=== PATIENT | female | born 1940 | race Caucasian/White ===

== ENCOUNTER 2017-11-26 14:58 | Emergency (ER) | payer MEDICARE ==
[~2017-11-26] VITALS: Ht 160 cm; Wt 68.0 kg
[~2017-11-26 14:58] MED LIST: AMLODIPINE BESYL5 MG PO; ASPIRIN81 MG PO; ATENOLOL100 MG PO; BENAZEPRIL HCL40 MG PO; CO Q-1010 MG; COLACE100 MG PO; COQ-1030 MG PO; EDARBI40 MG; KEFLEX250 MG PO; LEVOTHYROXINE75 MCG PO; LIOTHYRONINE SO5 MCG PO; LOVASTATIN40 MG PO; OMEGA 3 FISH O1 EACH; OMEPRAZOLE40 MG PO; OS-CAL 500+D T1 EACH PO; ROBAXIN-750750 MG PO; ULTRAM 50MG50 MG PO; ULTRAM50 MG PO; Z.0.ASPIRIN CHEW81 M PO; Z.0.ATENOLOL100 MG PO; Z.0.BENAZEPRIL HCL40 PO; Z.0.LEVOTHYROXINE75 PO; Z.0.LOVASTATIN40 MG PO; Z.0.OMEPRAZOLE40 MG PO; Z.0.OSCAL D500 MG PO; [UNRECOGNIZED DRUG - OTHER] PO
--- OUTSIDE RECORDS SUMMARY | 2017-11-26 15:01 | XMS REPORT ---
[facility] Address Unknown Phone Unavailable Care Team Providers Care Loans Officer Name Role Phone ERICA GARCIAS Unavailable Unavailable Problems This patient has no known problems. Allergies, Adverse Reactions, Alerts This patient has no known allergies or adverse reactions. Medications This patient has no known medications. Results Test Description Test Time Test Comments Text Results Atomic Results Result Comments KNEE THREE VIEWS BILATERAL [place] [address] Patient Name: VICKI ESPARZA MR #: [id number] : 1940 Age/Sex: 76/F Req #: [id number] Adm Physician: Ordered by: ERICA GARCIAS MD Report #: [id number] Location: ER Room/Bed: ___ Procedure: [id number] DX/KNEE THREE VIEWS BILATERAL Exam Date: 06/17/17 Exam Time: 1929 REPORT STATUS: Signed EXAM: KNEE THREE VIEWS BILATERAL DATE: 06/17/2017 7:11 PM Time stamp on exam: 1919 hours INDICATION: Fell in bedroom, tripped over cord COMPARISON: Right knee x-ray April 12, 2017 FINDINGS: RIGHT KNEE: Marked regional vascular calcifications. No fractures, lytic or blastic lesions. No excessive joint fluid. LEFT KNEE: Marked vascular calcifications. No fractures, lytic or blastic lesions. No excessive joint fluid. IMPRESSION: No evidence of a right or left knee fracture. Signed by: Dr. Shawna Johnson M.D. on 06/17/2017 8:03 PM Dictated By: SHAWNA JOHNSON MD 02 Transcribed By : TROY on 06/17/172002 COPY TO: ERICA GARCIAS MD
== END 2017-11-26 16:48 | disposition home or self-care (01) ==
LOC: ER 14:58
DX: S81.811A Laceration without foreign body, right lower leg, initial encounter (principal); W45.8XXA Other foreign body or object entering through skin, initial encounter; Y92.89 Other specified places as the place of occurrence of the external cause
CPT/HCPCS: 99283

== ENCOUNTER 2018-01-14 13:17 | Emergency (ER) | payer MEDICARE ==
[~2018-01-14] VITALS: Ht 160 cm; Wt 68.0 kg
--- OUTSIDE RECORDS SUMMARY | 2018-01-14 13:21 | XMS REPORT | Continuity of Care Document ---
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 No 05/07/17 5:15pm If yes, is advance directive on file with [facility]? No 01/13/17 4:02pm If not on file with [facility] will patient provide a copy? No 05/07/17 5:15pm Problems Medical Problem Onset Date Status Chest pain Unknown Diarrhea 08/20/2015 Acute Dizziness Unknown Acute HTN (hypertension) Unknown Nausea Unknown Acute Medications Current Home Medications Medication Dose Units Route Directions Days Qty Instructions Start Date Amlodipine Besylate 5 Mg Tablet 5 Mg Oral Daily 30 Tab Atenolol 100 Mg Tablet 100 Mg Oral Bedtime Benazepril Hcl 40 Mg Tablet 40 Mg Oral Bedtime Calcium Carbonate/Vitamin D3 (Os-Garcia 500+D Tablet) 1 Each Tablet 500 Mg Oral Three Times A Day 30 Tab Levothyroxine Sodium 75 Mcg Tablet 75 Mcg Oral Daily 30 Tab Liothyronine Sodium 5 Mcg Tablet 5 Mcg Oral Daily Lovastatin 40 Mg Tablet 40 Mg Oral Bedtime Omeprazole 40 Mg Capsule.dr 40 Mg Oral Daily Past Home Medications Medication Directions Ordered Status Aspirin 81 Mg Tab.chew, 81 Mg Oral Bedtime Discontinued Aspirin (Aspirin Chew) 81 Mg Chew, 81 Mg Oral Bedtime Discontinued Atenolol 100 Mg Tablet, 100 Mg Oral Bedtime Discontinued Azilsartan Medoxomil (Edarbi) 40 Mg Tablet, Daily Discontinued Benazepril Hcl 40 Mg Tablet, 40 Mg Oral Bedtime Discontinued Calcium Carbonate (Oscal D) 500 Mg Tab, 500 Mg Oral Three Times A Day Discontinued Cephalexin (Keflex) 250 Mg Capsule, 250 Mg Oral Twice A Day Discontinued Docusate Sodium (Colace) 100 Mg Cap, 100 Mg Oral Twice A Day Discontinued Levothyroxine Sodium 75 Mcg Tablet, 75 Mcg Oral Daily Discontinued Liothyronine Sodium 5 Mcg Tablet, 5 Mcg Oral Daily Discontinued Lovastatin 40 Mg Tablet, 40 Mg Oral Bedtime Discontinued Methocarbamol (Robaxin-750) 750 Mg Tablet, 750 Mg Oral Three Times A Day Discontinued Nisoldipine 17 Mg Tab.sr.24h, 8.5 Mg Oral Twice A Day Discontinued [place]-3 Fatty Acids/Fish Oil ([place] 3 Fish Oil Softgel) 1 Each Capsule.dr, Discontinued Omeprazole 40 Mg Capsule.dr, 40 Mg Oral Daily Discontinued Tramadol Hcl (Ultram) 50 Mg Tablet, 50 Mg Oral Every 4 Hours as needed for Pain Discontinued Tramadol Hcl (Ultram 50MG*) 50 Mg Tab, 50 Mg Oral Every 6 Hours for Pain Discontinued Ubidecarenone (Co Q-10) 10 Mg Capsule, Discontinued Ubidecarenone (Coq-10) 30 Mg Capsule, 30 Mg Oral Daily Discontinued Family History Relationship Condition Age at Onset Recorded Date/Time 33 Father FH: prostate cancer 60 years & older 10/13/2015 12:46pm 32 Mother Family history of acute myocardial infarction 50's - 60 2014 7:31pm 09 Sister Family history of hypertension 40's - 50 10/13/2015 12:46pm Social History Social History Problem Response Recorded Date/Time Onset Date Status Hx Psychiatric Problems No 01/13/2017 4:02pm Not Applicable Not Applicable Hx Eating Disorder No 01/13/2017 4:02pm Not Applicable Not Applicable Hx Substance Use Disorder No 01/13/2017 4:02pm Not Applicable Not Applicable Hx Depression No 01/13/2017 4:02pm Not Applicable Not Applicable Hx Alcohol Use No 01/13/2017 4:02pm Not Applicable Not Applicable Hx Substance Use Treatment No 01/13/2017 4:02pm Not Applicable Not Applicable Hx Physical Abuse No 01/13/2017 4:02pm Not Applicable Not Applicable Smoking Status Start Date Stop Date Never Smoker Hospital Discharge Instructions No hospital discharge instruction information available. Plan of Care Discharge Date 11/26/17 4:48pm Disposition HOME, SELF-CARE Condition at Discharge Stable Instructions/Education Provided Laceration Forms Provided Work/School Excuse Prescriptions See Medication Section Referrals ROB VEGA MD Order Date: Call for an appointment Address: [address] [place] [id number] Note: Follow up in one week for re-evaluation of wound healing. Additional Instructions/Education DC Instructions: Call for follow up appointment to see your medical provider to evaluate healing progress of wound. Take the medication as prescribed. As discussed at the bedside, drink fluids, rest and return to the ER for any fever, shortness of breath, chest pain, trouble handling your oral secreations or any new concerns. Keep the steri stips to lower leg dry. Do not soak them, they will fall off on their own. You may remove the sera wrap in the next 24-48 hours. When at home, keep lower extremity elevated for the next couple of days. Functional Status No functional status information available. Allergies, Adverse Reactions, Alerts Allergen Type Severity Reaction Status Last Updated Codeine Allergy Mild Active 04/12/17 Sulfamethoxazole Adverse Reaction Severe NONAROUSABLE Active 04/12/17 Trimethoprim Adverse Reaction Severe NONAROUSABLE Active 04/12/17 Promethazine Allergy Unknown Active 04/12/17 Levofloxacin Allergy Severe Unconscious Active 04/12/17 Immunizations No immunization information available. Vital Signs Acute Vital Signs Vital Response Date/Time Temperature (Fahrenheit) 98.3 degrees F (97.6 - 99.5) 06/17/2017 9:07pm Pulse Pulse Rate (adult) 68 bpm (60 - 90) 06/17/2017 9:07pm Respiratory Rate 16 bpm (12 - 24) 06/17/2017 9:07pm Blood Pressure 116/88 mm Hg 06/17/2017 9:07pm Height 5 ft 3 in 11/26/2017 3:25pm Weight 150 lb 11/26/2017 3:25pm Body Mass Index 26.6 kg/m^2 11/26/2017 3:25pm Results Laboratory Results Test Name Result Units Flags Reference Collection Date/Time Result Date/ Time Comments White Blood Count 10.35 x10e3/uL 4.8-10.8 05/07/2017 1:50pm 05/07/2017 2:05pm Red Blood Count 3.98 x10e6/uL 3.6-5.1 05/07/2017 1:50pm 05/07/2017 2: 05pm Hemoglobin 12.4 g/dL 12.0-16.0 05/07/2017 1:50pm 05/07/2017 2:05pm Hematocrit 38.2 % 34.2-44.1 05/07/2017 1:50pm 05/07/2017 2:05pm Mean Corpuscular Volume 96.0 fL 81-99 05/07/2017 1:50pm 05/07/2017 2: 05pm Mean Corpuscular Hemoglobin 31.2 pg 28-32 05/07/2017 1:50pm 05/07/2017 2:05pm Mean Corpuscular Hemoglobin Concent 32.5 g/dL 31-35 05/07/2017 1:50pm 05/07/2017 2:05pm Red Cell Distribution Width 13.3 % 11.7-14.4 05/07/2017 1:50pm 2016 2:05pm Platelet Count 340 x10e3/uL 140-360 05/07/2017 1:50pm 05/07/2017 2: 05pm Neutrophils (%) (Auto) 72.5 % 38.7-80.0 05/07/2017 1:50pm 05/07/2017 2: 05pm Lymphocytes (%) (Auto) 17.9 % L 18.0-39.1 05/07/2017 1:50pm 05/07/2017 2 :05pm Monocytes (%) (Auto) 7.6 % 4.4-11.3 05/07/2017 1:50pm 05/07/2017 2: 05pm Eosinophils (%) (Auto) 0.2 % 0.0-6.0 05/07/2017 1:50pm 05/07/2017 2: 05pm Basophils (%) (Auto) 0.8 % 0.0-1.0 05/07/2017 1:50pm 05/07/2017 2:05pm IM GRANULOCYTES % 1.0 % 0.0-1.0 05/07/2017 1:50pm 05/07/2017 2:05pm Neutrophils # (Auto) 7.5 H 2.1-6.9 05/07/2017 1:50pm 05/07/2017 2: 05pm Lymphocytes # (Auto) 1.9 1.0-3.2 05/07/2017 1:50pm 05/07/2017 2:05pm Monocytes # (Auto) 0.8 0.2-0.8 05/07/2017 1:50pm 05/07/2017 2:05pm Eosinophils # (Auto) 0.0 0.0-0.4 05/07/2017 1:50pm 05/07/2017 2:05pm Basophils # (Auto) 0.1 0.0-0.1 05/07/2017 1:50pm 05/07/2017 2:05pm Absolute Immature Granulocyte (auto 0.10 x10e3/uL 0-0.1 05/07/2017 1: 50pm 05/07/2017 2:05pm Prothrombin Time 12.2 seconds 11.9-14.5 05/07/2017 1:50pm 05/07/2017 2: 11pm Prothromb Time International Ratio 0.86 05/07/2017 1:50pm 2016 2:11pm Oral Anticoagulant Therapy INR Values: 1. Low Intensity Therapy 1.5 - 2.0 2. Moderate Intensity Therapy 2.0 - 3.0 3. High Intensity Therapy(1) 2.5 - 3.5 4. High Intensity Therapy(2) 3.0 - 4.0 5. Panic Value INR > 5.0 Activated Partial Thromboplast Time 19.3 seconds L 23.8-35.5 05/07/2017 1 :50pm 05/07/2017 2:12pm D-Dimer Quantitative (PE/DVT) 1.82 ug/mLFEU H 0.00-0.45 05/07/2017 1: 50pm 05/07/2017 2:22pm As with all in vitro diagnostic tests, the test results should be interpreted by the physician in conjunction with clinical findings and other test results. Test results are reported in NEW D-dimer units(ug/mLFEU). Sodium Level 140 mmol/L 136-145 05/07/2017 1:50pm 05/07/2017 2:20pm Potassium Level 3.9 mmol/L 3.5-5.1 05/07/2017 1:50pm 05/07/2017 2:20pm Chloride Level 104 mmol/L 98-107 05/07/2017 1:50pm 05/07/2017 2:20pm Carbon Dioxide Level 24 mmol/L 22-29 05/07/2017 1:50pm 05/07/2017 2: 20pm Anion Gap 15.9 mmol/L 8-16 05/07/2017 1:50pm 05/07/2017 2:20pm Blood Urea Nitrogen 25 mg/dL 7-26 05/07/2017 1:50pm 05/07/2017 2:20pm Creatinine 1.87 mg/dL H 0.57-1.11 05/07/2017 1:50pm 05/07/2017 2:20pm BUN/Creatinine Ratio 13 6-25 05/07/2017 1:50pm 05/07/2017 2:20pm Estimat Glomerular Filtration Rate 26 ML/MIN L 60- 05/07/2017 1:50pm 03/2017 2:20pm Ranges were taken from the National Kidney Disease Education Program and the National Kidney Foundation literature. Reference ranges: 60 or greater: Normal 16-59 (for 3 consecutive months): Chronic kidney disease 15 or less: Kidney failure Glucose Level 120 mg/dL H 74-118 05/07/2017 1:50pm 05/07/2017 2:20pm Calcium Level 9.7 mg/dL 8.4-10.2 05/07/2017 1:50pm 05/07/2017 2:20pm Total Bilirubin 0.5 mg/dL 0.2-1.2 05/07/2017 1:50pm 05/07/2017 2:20pm Aspartate Amino Transf (AST/SGOT) 19 IU/L 5-34 05/07/2017 1:50pm 2016 2:20pm Alanine Aminotransferase (ALT/SGPT) 17 IU/L 0-55 05/07/2017 1:50pm 03/2017 2:20pm Total Protein 6.7 g/dL 6.5-8.1 05/07/2017 1:50pm 05/07/2017 2:20pm Albumin 3.3 g/dL L 3.5-5.0 05/07/2017 1:50pm 05/07/2017 2:20pm Globulin 3.4 g/dL 2.3-3.5 05/07/2017 1:50pm 05/07/2017 2:20pm Albumin/Globulin Ratio 1.0 0.8-2.0 05/07/2017 1:50pm 05/07/2017 2: 20pm Alkaline Phosphatase 64 IU/L 40-150 05/07/2017 1:50pm 05/07/2017 2: 20pm Procedures Procedure Status Date Provider(s) RPR S/N/AX/GEN/TRNK2.6-7.5CM Completed 04/12/17 SHEEBA HORTA MD EGD BIOPSY SINGLE/MULTIPLE Completed 05/10/17 IRINA DIAZ MD EGD GUIDE WIRE INSERTION Completed 05/10/17 IRINA DIAZ MD HEMODIALYSIS ACCESS STUDY Completed 05/07/17 Encounters Encounter Location Arrival/Admit Date Discharge/Depart Date Attending Provider Departed Emergency Room [facility] 11/26/17 2:58pm 4:48pm SHEEBA HORTA MD Departed Emergency Room [facility] 06/17/17 6:45pm 9:23pm ERICA GARCIAS MD Registered [facility] Day [facility] 05/10/17 6:46am JUANCHO CAMPBELL MD Departed Emergency Room [facility] 05/07/17 1:26pm 3:25pm KATT GALDAMEZ MD Registered Clinic [facility] 04/18/17 7:04am CHRISTIE GARCIA MD Departed Emergency [facility] 04/12/17 1:37pm 7:02pm SHEEBA HORTA MD Registered Clinic [facility] 06/14/17 12:00pm JUANCHO CAMPBELL MD Registered Clinic [facility] 02/13/17 8:02am JUANCHO CAMPBELL MD
[2018-01-14] MEDS ORDERED: ASPIR 8181 MG PO (13:30)
[2018-01-14 13:49] VITALS: BP 160/67
== END 2018-01-14 13:54 | disposition home or self-care (01) ==
LOC: ER 13:22
DX: S51.801A Unspecified open wound of right forearm, initial encounter (principal); I10 Essential (primary) hypertension; E03.9 Hypothyroidism, unspecified; Z85.528 Personal history of other malignant neoplasm of kidney
CPT/HCPCS: 99283

== ENCOUNTER 2018-02-05 12:22 | Observation (INO) | payer MEDICARE ==
[~2018-02-05] VITALS: Ht 160 cm; Wt 68.2 kg
[~2018-02-05 12:22] MED LIST changes: +ASPIR 8181 MG PO
--- OUTSIDE RECORDS SUMMARY | 2018-02-05 12:27 | XMS REPORT | Continuity of Care Document ---
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 No 05/07/17 5:15pm If yes, is advance directive on file with [facility]? No 01/13/17 4:02pm If not on file with [facility] will patient provide a copy? No 05/07/17 5:15pm Problems Medical Problem Onset Date Status Chest pain Unknown Diarrhea 08/20/2015 Acute Dizziness Unknown Acute HTN (hypertension) Unknown Nausea Unknown Acute Medications Current Home Medications Medication Dose Units Route Directions Days Qty Instructions Start Date Amlodipine Besylate 5 Mg Tablet 5 Mg Oral Daily 30 Tab Aspirin (Aspir 81) 81 Mg Tablet.dr 81 Mg Oral Daily Atenolol 100 Mg Tablet 100 Mg Oral Bedtime Benazepril Hcl 40 Mg Tablet 40 Mg Oral Bedtime Calcium Carbonate/Vitamin D3 (Os-Garcia 500+D Tablet) 1 Each Tablet 500 Mg Oral Three Times A Day 30 Tab Levothyroxine Sodium 75 Mcg Tablet 100 Mcg Oral Daily 30 Tab Liothyronine Sodium 5 Mcg Tablet 5 Mcg Oral Daily Lovastatin 40 Mg Tablet 40 Mg Oral Bedtime Past Home Medications Medication Directions Ordered Status [...] 8.5 Mg Oral Twice A Day Discontinued [place]-3 Fatty Acids/Fish Oil ([place] 3 Fish Oil Softgel) 1 Each Capsule.dr, Discontinued Omeprazole 40 Mg Capsule.dr, 40 Mg Oral Daily Discontinued Omeprazole 40 Mg Capsule.dr, 40 Mg [...] information available. Plan of Care Discharge Date 01/14/18 1:54pm Disposition HOME, SELF-CARE Condition at Discharge Stable Instructions/Education Provided Laceration Forms Provided Work/School Excuse Prescriptions See Medication Section Referrals ROB VEGA MD Order Date: Call for an appointment Address: [address] [place] [id number] Additional Instructions/Education Leave tegaderm on for a week Follow up with PCP if not getting better Return to ER if worsening of symptoms, fever, or s/s infection such as drainage and pus noted. Keep area clean and dry Functional Status No functional status information available. [...] 99.5) 06/17/2017 9:07pm Pulse Pulse Rate (adult) 66 bpm (60 - 90) 01/14/2018 1:49pm Respiratory Rate 20 bpm (12 - 24) 01/14/2018 1:49pm Blood Pressure 160/67 mm Hg 01/14/2018 1:49pm Height 5 ft 3 in 01/14/2018 1:25pm Weight 150 lb 01/14/2018 1:25pm Body Mass Index 26.6 kg/m^2 01/14/2018 1:25pm Results Laboratory Results Test Name Result Units [...] 05/07/2017 2:20pm Blood Urea Nitrogen 25 mg/dL 7-05/07/2017 1:50pm 05/07/2017 2:20pm Creatinine 1.87 mg/dL H [...] DIAZ MD HEMODIALYSIS ACCESS STUDY Completed 05/07/17 EMERGENCY DEPT VISIT Completed 11/26/17 Encounters Encounter Location Arrival/Admit Date Discharge/Depart Date Attending Provider [facility] 01/14/18 1:22pm 1:54pm KATT GALDAMEZ MD Departed Emergency Room [facility] 11/26/17 2:58pm 4:48pm SHEEBA HORTA MD Departed Emergency Room [facility] 06/17/17 6:45pm 9:23pm ERICA GARCIAS MD Reg[facility] 05/10/17 6:46am JUANCHO CAMPBELL MD [facility]arted [facility] 05/07/17 1:26pm 3:25pm KATT GALDAMEZ MD [facility]istered [facility] 04/18/17 7:04am CHRISTIE GARCIA MD [facility] 04/12/17 1:37pm 7:02pm SHEEBA HORTA MD
[2018-02-05 12:48] LABS: BASOPHILS # (AUTO) 0.1 (0.0-0.1); BASOPHILS % 0.7 % (0.0-1.0); EOSINOPHILS % 0.4 % (0.0-6.0); HEMATOCRIT 42.7 % (34.2-44.1); HEMOGLOBIN 13.7 g/dL (12.0-16.0); LYMPHOCYTES # (AUTO) 2.1 (1.0-3.2); LYMPHOCYTES % 18.4 % (18.0-39.1); MEAN CORPUSCULAR HEMOGLOBIN 30.8 pg (28-32); MEAN CORPUSCULAR HGB CONC 32.1 g/dL (31-35); MONOCYTES % 8.4 % (4.4-11.3); NEUTROPHILS # (AUTO) 8.1 (2.1-6.9); NEUTROPHILS % 71.3 % (38.7-80.0); PLATELET COUNT 331 x10e3/uL (140-360); RED BLOOD COUNT 4.45 x10e6/uL (3.6-5.1); RED CELL DISTRIBUTION WIDTH 13.4 % (11.7-14.4)
[2018-02-05 12:52] LABS: PROTHROMBIN TIME 12.4 seconds (11.9-14.5)
[2018-02-05 12:59] LABS: ALANINE AMINOTRANSFERASE 10 IU/L (0-55); ALBUMIN 3.1 g/dL (3.5-5.0); ALBUMIN/GLOBULIN RATIO 0.8 (0.8-2.0); ALKALINE PHOSPHATASE 70 IU/L (40-150); BLOOD UREA NITROGEN 29 mg/dL (7-26); BUN/CREATININE RATIO 20 (6-25); CALCIUM 10.4 mg/dL (8.4-10.2); CARBON DIOXIDE 26 mmol/L (22-29); CHLORIDE 105 mmol/L (98-107); CREATINE KINASE 39 IU/L (29-168); CREATININE, SERUM 1.48 mg/dL (0.57-1.11); EST GLOMERULAR FILTRATION RATE 34 ML/MIN (60-); GLUCOSE 130 mg/dL (74-118); SODIUM 143 mmol/L (136-145)
--- NOTE | 2018-02-05 14:38 | Diagnostic Imaging Report ---
PROCEDURE: A single AP view of the chest. COMPARISON: 01/13/17 INDICATIONS: CHEST PAIN, DIZZINESS FINDINGS: Lines/tubes: None. Lungs: The lungs are well inflated and clear. There is no evidence of pneumonia or pulmonary edema. Pleura: There is no pleural effusion or pneumothorax. Heart and mediastinum: The heart and the mediastinum are unremarkable. Aorta is Mildly calcified and tortuous. Bones: No acute bony abnormality. IMPRESSION: 1. No acute cardiopulmonary disease. Dictated by: Dave Garrett M.D. on 02/05/2018 at 14:40 Electronically approved by: Dave Garrett M.D. on 02/05/2018 at 14:40
[2018-02-05 14:51] VITALS: BP 131/59
[2018-02-05 15:22] VITALS: BP 131/59
[2018-02-05 18:32] VITALS: BP_SYST 107; BP_SYST 117; BP_SYST 124; BP_DIAS 54; BP_DIAS 65; BP_DIAS 69
[2018-02-05 18:37] LABS: BILIRUBIN,URINE NEGATIVE (NEGATIVE); CLARITY,URINE SL CLOUDY (CLEAR); COLOR,URINE YELLOW (YELLOW); KETONES,URINE NEGATIVE (NEGATIVE); LEUKOCYTE ESTERASE ,URINE NEGATIVE (NEGATIVE); NITRITE,URINE NEGATIVE (NEGATIVE); PROTEIN,URINE DIPSTICK NEGATIVE (NEGATIVE); URINE UROBILINOGEN 0.2 mg/dL (0.2 - 1)
[2018-02-05 18:48] LABS: BACTERIA,URINE MODERATE /HPF; EPITHELIAL CELLS,URINE FEW /LPF; MUCUS,URINE MODERATE (RARE)
[2018-02-05 20:00] VITALS: BP 134/58
[2018-02-05] MEDS: OYST-CAL-D 500MG TABLET PO SCH (20:48)
--- NOTE | 2018-02-05 20:59 | Consultation ---
DATE OF CONSULTATION: February 05, 2018 CARDIOLOGY CONSULTATION REQUESTING PHYSICIAN: Dr. Santiago Diaz REASON FOR CONSULTATION: Syncope. HISTORY OF PRESENT ILLNESS: This is a 77-year-old woman with history of hypertension, hyperlipidemia, and hypothyroidism, who presented with complaints of weakness. She was seen by Dr. Meza last week and had her amlodipine discontinued. She was changed to benazepril/hydrochlorothiazide. After this medication change, she began to feel very weak and sleepy. She therefore saw Dr. Meza in the office again today. While in the office, she had 2 witnessed episodes of syncope with lowest blood pressure measured at 65/35 mmHg. She was subsequently sent to the ER for further evaluation. Patient states both episodes of syncope were while she was seated. There was no seizure activity or incontinence. She was given a 250 mL normal saline bolus and sent to the ER. REVIEW OF SYSTEMS: Negative except as per HPI. PAST MEDICAL HISTORY: 1. Hypertension. 2. Hyperlipidemia. 3. Hypothyroidism. 4. GERD. 5. Nephrectomy secondary to renal cancer. PAST SURGICAL HISTORY: 1. Hysterectomy. 2. Tonsillectomy. 3. Cholecystectomy. 4. Right knee surgery. 5. Left hip surgery. ALLERGIES: PLEASE SEE EMR. MEDICATIONS: Please see medication list. SOCIAL HISTORY: Denies tobacco, alcohol, or illicit drugs. FAMILY HISTORY: Pertinent for mother with myocardial infarction x2. OBJECTIVE: VITAL SIGNS: Temperature 96.5 degrees, pulse 68, respiratory rate 16, blood pressure 131/59, oxygen saturation 96% on room air. GENERAL: Well-developed, well-nourished woman, in no acute distress. HEENT: Normocephalic, atraumatic. Pupils equal. No scleral icterus. NECK: Supple. No thyromegaly or cervical lymphadenopathy. No carotid bruits. LUNGS: Clear to auscultation bilaterally. No wheezes or crackles. CARDIOVASCULAR: Normal rate and regular rhythm. No murmur. Normal S1 and S2. ABDOMEN: Soft, nontender. EXTREMITIES: 1+ pitting edema. NEURO: Nonfocal exam. LABS: WBC 11.3, hemoglobin 13.7, hematocrit 42.7, platelets 331,000. Sodium 143, potassium 4, chloride 105, CO2 26, BUN 29, creatinine 1.48. Chest x-ray, no acute cardiopulmonary disease. EKG, normal sinus rhythm. IMPRESSIONS: 1. Syncope. 2. Hypertension. 3. Hyperlipidemia. 4. Chronic kidney disease secondary to nephrectomy for renal cancer. 5. Hypothyroidism. RECOMMENDATIONS: Suspect patient's symptoms are secondary to orthostatic hypotension from volume depletion. Check orthostatic vitals. Monitor patient on telemetry. As patient has not had prior echocardiogram or carotid Dopplers, we will order them. Stop all antihypertensive therapy at this time. Thank you for this consult. We will continue to follow. Job#: [id number]
[2018-02-05] MEDS ORDERED: SIMVASTATIN 20 MG TAB PO SCH (21:00)
[2018-02-05] MEDS ORDERED: SIMVASTATIN 40 MG TAB PO SCH (21:00)
[2018-02-06] VITALS (7 sets, daily range): BP systolic 130–171; BP diastolic 61–71
[2018-02-06] MEDS ORDERED: LEVOTHYROXINE SODIUM 100 MCG TAB PO SCH (06:00)
[2018-02-06 06:55] LABS: BASOPHILS # (AUTO) 0.1 (0.0-0.1); BASOPHILS % 0.7 % (0.0-1.0); EOSINOPHILS % 0.2 % (0.0-6.0); HEMATOCRIT 37.3 % (34.2-44.1); HEMOGLOBIN 11.9 g/dL (12.0-16.0); LYMPHOCYTES # (AUTO) 1.7 (1.0-3.2); MEAN CORPUSCULAR HEMOGLOBIN 30.8 pg (28-32); MEAN CORPUSCULAR HGB CONC 31.9 g/dL (31-35); MEAN CORPUSCULAR VOLUME 96.6 fL (81-99); MONOCYTES % 11.1 % (4.4-11.3); NEUTROPHILS # (AUTO) 5.8 (2.1-6.9); NEUTROPHILS % 67.4 % (38.7-80.0); PLATELET COUNT 283 x10e3/uL (140-360); RED BLOOD COUNT 3.86 x10e6/uL (3.6-5.1); RED CELL DISTRIBUTION WIDTH 13.4 % (11.7-14.4)
[2018-02-06 07:09] LABS: ALBUMIN 2.6 g/dL (3.5-5.0); ALBUMIN/GLOBULIN RATIO 0.9 (0.8-2.0); ANION GAP 13.3 mmol/L (8-16); CALCIUM 9.9 mg/dL (8.4-10.2); CREATININE, SERUM 1.53 mg/dL (0.57-1.11); POTASSIUM 4.3 mmol/L (3.5-5.1)
[2018-02-06] MEDS ORDERED: LIOTHYRONINE SODIUM 5 MCG TAB PO SCH (09:00)
[2018-02-06] MEDS ORDERED: LEVOTHYROXINE SODIUM 75 MCG TAB PO SCH (09:00)
[2018-02-06] MEDS ORDERED: ASPIRIN 81 MG CHEW TAB PO SCH (09:00)
[2018-02-06] MEDS: OYST-CAL-D 500MG TABLET PO SCH ×2 (09:41→15:10)
[2018-02-06 15:12] LABS: CHOL/HDL RATIO 4.1 (3.0-3.6)
--- NOTE | 2018-02-06 15:23 | Progress Note ---
DATE: February 06, 2018 CARDIOLOGY PROGRESS NOTE SUBJECTIVE: The patient denies chest pain or shortness of breath. She reports she feels better today. She is no longer orthostatic. OBJECTIVE VITAL SIGNS: Temperature 97 degrees, pulse 69, respiratory rate 18, blood pressure 130/61, and oxygen saturation 98% on room air. GENERAL: Awake, alert and in no acute distress. LUNGS: Clear to auscultation bilaterally. No wheezes or crackles. CARDIOVASCULAR: Normal rate. Regular rhythm. No murmur. Normal S1 and S2. ABDOMEN: Soft and nontender. EXTREMITIES: No edema. CARDIAC MEDICATIONS 1. Liothyronine 5 mcg p.o. daily. 2. Aspirin 81 mg p.o. daily. 3. Levothyroxine 100 mcg p.o. daily. 4. Simvastatin 40 mg p.o. at bedtime. Telemetry is normal sinus rhythm. IMPRESSION 1. Syncope. 2. Orthostatic hypotension. 3. Hypertension. 4. Hyperlipidemia. 5. Carotid artery stenosis. 6. Chronic kidney disease secondary to nephrectomy for renal cancer. 7. Hypothyroidism. RECOMMENDATIONS: The patient's symptoms were most likely secondary to orthostatic hypotension from volume depletion and antihypertensive therapy. The patient is now hypertensive with all antihypertensive therapies discontinued. Resume benazepril at 5 mg p.o. daily. If the patient feels well with this medication, she may be discharged home today to follow up as scheduled with Dr. Meza. She is already scheduled for peripheral angiogram on Monday. Her carotid Doppler was suggestive of 50% to 75% stenosis in the left carotid artery. We will perform carotid angiogram Monday as well. Thank you for this consult. We will continue to follow. Job#: [id number] MT
[2018-02-07] MEDS ORDERED: BENAZEPRIL HCL 10 MG TAB PO SCH (09:00)
[2018-02-08] MEDS ORDERED: AMLODIPINE PO (13:58)
== END 2018-02-06 18:50 | disposition home or self-care (01) ==
LOC: ER 12:25 → IMCU 14:04
PROVIDERS: ADMIT Internal Medicine; ATTEND Internal Medicine
DX: I95.2 Hypotension due to drugs (principal); R55 Syncope and collapse; T46.5X5A Adverse effect of other antihypertensive drugs, initial encounter; I10 Essential (primary) hypertension; E78.5 Hyperlipidemia, unspecified; E03.9 Hypothyroidism, unspecified; N18.9 Chronic kidney disease, unspecified; Z90.5 Acquired absence of kidney; Z85.528 Personal history of other malignant neoplasm of kidney; I65.22 Occlusion and stenosis of left carotid artery
CPT/HCPCS: 36415 ×2; 71045; 80053 ×2; 80061; 81001; 82550; 82553; 83735; 84484; 85025 ×2; 85610; 87086; 93005; 93306; 93880; 99284; G0378 ×2

== ENCOUNTER → 2018-02-09 | Day surgery (SDC) | payer MEDICARE ==
[2018-02-08 13:41] LABS: BASOPHILS # (AUTO) 0.1 (0.0-0.1); BASOPHILS % 0.8 % (0.0-1.0); EOSINOPHILS % 0.3 % (0.0-6.0); HEMATOCRIT 41.6 % (34.2-44.1); HEMOGLOBIN 13.7 g/dL (12.0-16.0); LYMPHOCYTES # (AUTO) 1.9 (1.0-3.2); LYMPHOCYTES % 17.3 % (18.0-39.1); MEAN CORPUSCULAR HEMOGLOBIN 31.9 pg (28-32); MEAN CORPUSCULAR HGB CONC 32.9 g/dL (31-35); MEAN CORPUSCULAR VOLUME 96.7 fL (81-99); MONOCYTES # (AUTO) 0.9 (0.2-0.8); MONOCYTES % 8.2 % (4.4-11.3); NEUTROPHILS # (AUTO) 7.8 (2.1-6.9); NEUTROPHILS % 72.8 % (38.7-80.0); PLATELET COUNT 323 x10e3/uL (140-360); RED CELL DISTRIBUTION WIDTH 13.4 % (11.7-14.4)
[2018-02-08 14:03] LABS: ALBUMIN 3.1 g/dL (3.5-5.0); ALBUMIN/GLOBULIN RATIO 0.8 (0.8-2.0); ANION GAP 16.6 mmol/L (8-16); CALCIUM 10.9 mg/dL (8.4-10.2); CHOL/HDL RATIO 4.3 (3.0-3.6); CREATININE, SERUM 1.81 mg/dL (0.57-1.11)
[2018-02-08 14:04] LABS: POTASSIUM 5.6 mmol/L (3.5-5.1)
[~2018-02-09] VITALS: Ht 160 cm; Wt 66.2 kg
[2018-02-09] VITALS (32 sets, daily range): BP systolic 122–174; BP diastolic 56–74
[~2018-02-09] MED LIST changes: +ALPRAZOLAM 0.5 MG TAB ONE; +AMLODIPINE PO; +BRILINTA90 MG PO; +CLOPIDOGREL75 MG PO; +DIPHENHYDRAMINE HCL 25 MG CAP ONE; +FENTANYL CITRATE/PF 100MCG/2 ML INJ ONE; +HEPARIN SOD (PORCINE) 1000 UNIT/ML 30ML ONE; +HEPARIN SOD/SOD CHLORIDE 2,000 ML ONE; +IOPAMIDOL 370 MG/ML 200 ML INFUS..BTL INJ ONE; +LABETALOL HCL100 MG PO; +LIDOCAINE HCL 2% LOCAL 20 ML VIAL ONE; +MIDAZOLAM HCL 2 MG/2 ML VIAL ONE; +NITROGLYCERIN/D5W 200 MCG/ML 250 ML ONE; +PRASUGREL 10 MG TAB ONE; +PROTAMINE SULFATE 10 MG/ML 5 ML VIAL ONE; +SODIUM CHLORIDE 0.9% 1000ML 1,000 ML ONE; +SODIUM CHLORIDE 0.9% 50ML 50 ML ONE; +VANCOMYCIN 1GM/NS 250 ML 250 ML ONE; +VERAPAMIL HCL 2.5 MG/ML 2 ML VIAL ONE
--- OUTSIDE RECORDS SUMMARY | 2018-02-09 07:09 | XMS REPORT | Continuity of Care Document ---
Author Author [facility] Organization [facility] Address [address] [place] [address] Phone Unavailable Care Team Providers Care Clinical Informatics Strategist Name Role Phone ROB VEGA MD PCP Insurance Providers Guarantor Shira Esparza Address [address] [place] [address] Email PTDECLINED Payer [facility] Policy Number [id number] Subscriber's Name Shira Esparza Relationship 18 Self / Same As Patient Group Number [id number] Group Name RETIRED Effective Date 16 Advance Directives Directive Response Recorded Date/Time Does the patient have an advance directive? No 02/05/18 3:07pm If yes, is advance directive on file with [facility]? No 02/05/18 3:07pm If not on file with [facility] will patient provide a copy? No 02/05/18 3:07pm Do you have a Directive to Physician? No 02/05/18 2:03pm Do you have a Medical Power of Bullet Swaging Machine Operator? No 02/05/18 2:03pm Do you have an out of hospital Do Not Resuscitate Order? No 02/05/18 2:03pm Do you have any special needs we should be aware of? No 02/05/18 2:03pm Do you have a support person here with you today? Yes 02/05/18 2:03pm Did patient receive Notice of Privacy Practices? Yes 02/05/18 2:03pm Did patient receive patient rights and responsibilities? Yes 02/05/18 2:03pm Problems Medical Problem Onset Date Status Chest pain Unknown Diarrhea 08/20/2015 Acute Dizziness Unknown Acute HTN (hypertension) Unknown Nausea Unknown Acute Syncope Unknown Medications Current Home Medications Medication Dose Units Route Directions Days Qty Instructions Start Date Aspirin (Aspir 81) 81 Mg Tablet. 81 Mg Oral Daily Atenolol 100 Mg Tablet 100 Mg Oral Bedtime Benazepril Hcl 40 Mg Tablet 20 Mg Oral Bedtime Calcium Carbonate/Vitamin D3 (Os-Garcia 500+D Tablet) 1 Each Tablet 500 Mg Oral Three Times A Day 30 Tab Levothyroxine Sodium 75 Mcg Tablet 100 Mcg Oral Daily 30 Tab Liothyronine Sodium 5 Mcg Tablet 5 Mcg Oral Daily Lovastatin 40 Mg Tablet 40 Mg Oral Bedtime Past Home Medications Medication Directions Ordered Status Amlodipine Besylate 5 Mg Tablet, 5 Mg Oral Daily Discontinued Aspirin 81 Mg Tab.chew, 81 Mg Oral [...] 8.5 Mg Oral Twice A Day Discontinued [place]port-3 Fatty Acids/Fish Oil ([place] 3 Fish Oil Softgel) 1 Each Capsule., Discontinued Omeprazole 40 Mg Capsule.dr, 40 Mg [...] Onset Date Status Hx Psychiatric Problems No 02/05/2018 3:07pm Not Applicable Not Applicable Hx Eating Disorder No 02/05/2018 3:07pm Not Applicable Not Applicable Hx Substance Use Disorder No 02/05/2018 3:07pm Not Applicable Not Applicable Hx Depression No 02/05/2018 3:07pm Not Applicable Not Applicable Hx Alcohol Use No 02/05/2018 3:07pm Not Applicable Not Applicable Hx Substance Use Treatment No 02/05/2018 3:07pm Not Applicable Not Applicable Hx Physical Abuse No 02/05/2018 3:07pm Not Applicable Not Applicable Smoking Status Start Date Stop Date Never Smoker Hospital Discharge Instructions No hospital discharge instruction information available. Plan of Care Discharge Date 02/06/18 6:50pm Disposition HOME, SELF-CARE Instructions/Education Provided Syncope Syncope Prescriptions See Medication Section Additional Instructions/Education Diet as tolerated Activity as tolerated Functional Status Query Response Date Recorded Assistive Devices Rolling Walker February 05, 2018 3:22pm Ambulation Ability Standby Assistance February 05, 2018 3:22pm Toileting Ability Independent February 06, 2018 12:00pm Allergies, Adverse Reactions, Alerts Allergen Type Severity Reaction Status Last Updated Codeine Allergy Mild Active 04/12/17 Sulfamethoxazole Adverse Reaction Severe NONAROUSABLE Active 04/12/17 Trimethoprim Adverse Reaction Severe NONAROUSABLE Active 04/12/17 Promethazine Allergy Unknown Active 04/12/17 Levofloxacin Allergy Severe Unconscious Active 04/12/17 Immunizations No immunization information available. Vital Signs Acute Vital Signs Vital Response Date/Time Temperature (Fahrenheit) 97.6 degrees F (97.6 - 99.5) 02/06/2018 5:41pm Pulse Pulse Rate (adult) 75 bpm (60 - 90) 02/06/2018 5:41pm Respiratory Rate 20 bpm (12 - 24) 02/06/2018 5:41pm Blood Pressure 171/61 mm Hg 02/06/2018 12:36pm Height 5 ft 3 in 02/05/2018 12:25pm Weight 150.38 lb 02/06/2018 1:24am Body Mass Index 26.6 kg/m^2 02/06/2018 1:24am Results Laboratory Results Test Name Result Units Flags Reference Collection Date/Time Result Date/ Time Comments Activated Partial Thromboplast Time 19.3 seconds L 23.8-35.5 05/07/2017 1 :50pm 05/07/2017 2:12pm D-Dimer Quantitative (PE/DVT) 1.82 ug/mLFEU H 0.00-0.45 05/07/2017 1: 50pm 05/07/2017 2:22pm As with all in vitro diagnostic tests, the test results should be interpreted by the physician in conjunction with clinical findings and other test results. Test results are reported in NEW D-dimer units(ug/mLFEU). White Blood Count 8.55 x10e3/uL 4.8-10.8 02/06/2018 6:05am 02/06/2018 7 :03am Red Blood Count 3.86 x10e6/uL 3.6-5.1 02/06/2018 6:05am 02/06/2018 7: 03am Hemoglobin 11.9 g/dL L 12.0-16.0 02/06/2018 6:05am 02/06/2018 7:03am Hematocrit 37.3 % 34.2-44.1 02/06/2018 6:05am 02/06/2018 7:03am Mean Corpuscular Volume 96.6 fL 81-99 02/06/2018 6:05am 02/06/2018 7: 03am Mean Corpuscular Hemoglobin 30.8 pg 28-32 02/06/2018 6:05am 02/06/2018 7:03am Mean Corpuscular Hemoglobin Concent 31.9 g/dL 31-35 02/06/2018 6:0502/06/2018 7:03am Red Cell Distribution Width 13.4 % 11.7-14.4 02/06/2018 6:05am 2017 7:03am Platelet Count 283 x10e3/uL 140-360 02/06/2018 6:05am 02/06/2018 7: 03am Neutrophils (%) (Auto) 67.4 % 38.7-80.0 02/06/2018 6:05am 02/06/2018 7: 03am Lymphocytes (%) (Auto) 20.0 % 18.0-39.1 02/06/2018 6:05am 02/06/2018 7: 03am Monocytes (%) (Auto) 11.1 % 4.4-11.3 02/06/2018 6:05am 02/06/2018 7: 03am Eosinophils (%) (Auto) 0.2 % 0.0-6.0 02/06/2018 6:05am 02/06/2018 7: 03am Basophils (%) (Auto) 0.7 % 0.0-1.0 02/06/2018 6:05am 02/06/2018 7:03am IM GRANULOCYTES % 0.6 % 0.0-1.0 02/06/2018 6:05am 02/06/2018 7:03am Neutrophils # (Auto) 5.8 2.1-6.9 02/06/2018 6:05am 02/06/2018 7:03am Lymphocytes # (Auto) 1.7 1.0-3.2 02/06/2018 6:05am 02/06/2018 7:03am Monocytes # (Auto) 1.0 H 0.2-0.8 02/06/2018 6:05am 02/06/2018 7:03am Eosinophils # (Auto) 0.0 0.0-0.4 02/06/2018 6:05am 02/06/2018 7:03am Basophils # (Auto) 0.1 0.0-0.1 02/06/2018 6:05am 02/06/2018 7:03am Absolute Immature Granulocyte (auto 0.05 x10e3/uL 0-0.1 02/06/2018 6: 05am 02/06/2018 7:03am Prothrombin Time 12.4 seconds 11.9-14.5 02/05/2018 12:27pm 02/05/2018 12:53pm Prothromb Time International Ratio 1.00 02/05/2018 12:27pm 2017 12:53pm Oral Anticoagulant Therapy INR Values: 1. Low Intensity Therapy 1.5 - 2.0 2. Moderate Intensity Therapy 2.0 - 3.0 3. High Intensity Therapy(1) 2.5 - 3.5 4. High Intensity Therapy(2) 3.0 - 4.0 5. Panic Value INR > 5.0 Urine Color YELLOW YELLOW 02/05/2018 6:29pm 02/05/2018 6:37pm Urine Clarity SL CLOUDY CLEAR 02/05/2018 6:29pm 02/05/2018 6:37pm Urine Specific Justice 1.025 1.010-1.025 02/05/2018 6:29pm 2017 6:37pm Urine pH 5 5 - 7 02/05/2018 6:29pm 02/05/2018 6:37pm Urine Leukocyte Esterase NEGATIVE NEGATIVE 02/05/2018 6:29pm 2017 6:37pm Urine Nitrite NEGATIVE NEGATIVE 02/05/2018 6:29pm 02/05/2018 6:37pm Urine Protein NEGATIVE NEGATIVE 02/05/2018 6:29pm 02/05/2018 6:37pm Urine Glucose (UA) NEGATIVE NEGATIVE 02/05/2018 6:29pm 02/05/2018 6: 37pm Urine Ketones NEGATIVE NEGATIVE 02/05/2018 6:29pm 02/05/2018 6:37pm Urine Urobilinogen 0.2 mg/dL 0.2 - 1 02/05/2018 6:29pm 02/05/2018 6: 37pm Urine Bilirubin NEGATIVE NEGATIVE 02/05/2018 6:29pm 02/05/2018 6: 37pm Urine Blood NEGATIVE NEGATIVE 02/05/2018 6:29pm 02/05/2018 6:37pm Urine WBC NONE /HPF 0-5 02/05/2018 6:29pm 02/05/2018 6:48pm Urine RBC NONE /HPF 0-5 02/05/2018 6:29pm 02/05/2018 6:48pm Urine Bacteria MODERATE /HPF H NONE 02/05/2018 6:29pm 02/05/2018 6:48pm Urine Epithelial Cells FEW /LPF NONE 02/05/2018 6:29pm 02/05/2018 6: 48pm Urine Mucus MODERATE H RARE 02/05/2018 6:29pm 02/05/2018 6:48pm Sodium Level 141 mmol/L 136-145 02/06/2018 6:0502/06/2018 7:16am Potassium Level 4.3 mmol/L 3.5-5.1 02/06/2018 6:05am 02/06/2018 7:16am Chloride Level 105 mmol/L 98-107 02/06/2018 6:05am 02/06/2018 7:16am Carbon Dioxide Level 27 mmol/L 22-29 02/06/2018 6:05am 02/06/2018 7: 16am Anion Gap 13.3 mmol/L 8-16 02/06/2018 6:05am 02/06/2018 7:16am Blood Urea Nitrogen 31 mg/dL H 7-26 02/06/2018 6:05am 02/06/2018 7:16am Creatinine 1.53 mg/dL H 0.57-1.11 02/06/2018 6:05am 02/06/2018 7:16am BUN/Creatinine Ratio 20 6-25 02/06/2018 6:05am 02/06/2018 7:16am Estimat Glomerular Filtration Rate 33 ML/MIN L 60- 02/06/2018 6:0505/2018 7:16am Ranges were taken from the National Kidney Disease Education Program and the National Kid[employer] Foundation literature. Reference ranges: 60 or greater: Normal 16-59 (for 3 consecutive months): Chronic kidney disease 15 or less: Kidney failure Glucose Level 88 mg/dL 74-118 02/06/2018 6:05am 02/06/2018 7:16am Calcium Level 9.9 mg/dL 8.4-10.2 02/06/2018 6:05am 02/06/2018 7:16am Magnesium Level 1.3 MG/DL 1.3-2.1 02/06/2018 6:0502/06/2018 7:25am Total Bilirubin 0.5 mg/dL 0.2-1.2 02/06/2018 6:05am 02/06/2018 7:16am Aspartate Amino Transf (AST/SGOT) 14 IU/L 5-34 02/06/2018 6:052017 7:16am Alanine Aminotransferase (ALT/SGPT) 8 IU/L 0-55 02/06/2018 6:0502/06 7:16am Total Protein 5.6 g/dL L 6.5-8.1 02/06/2018 6:0502/06/2018 7:16am Albumin 2.6 g/dL L 3.5-5.0 02/06/2018 6:0502/06/2018 7:16am Globulin 3.0 g/dL 2.3-3.5 02/06/2018 6:0502/06/2018 7:16am Albumin/Globulin Ratio 0.9 0.8-2.0 02/06/2018 6:0502/06/2018 7: 16am Alkaline Phosphatase 59 IU/L 40-150 02/06/2018 6:0502/06/2018 7: 16am Triglycerides Level 143 MG/DL 0-149 02/06/2018 6:0502/06/2018 3: 12pm Cholesterol Level 130 MD/DL 0-199 02/06/2018 6:0502/06/2018 3:12pm Less than 200 mg/dL Low Risk 201 - 239 mg/dL Borderline Risk 240 mg/dl and greater High Risk LDL Cholesterol 69 MG/DL 60-130 02/06/2018 6:0502/06/2018 3:12pm HDL Cholesterol 32 MG/DL L 40-60 02/06/2018 6:0502/06/2018 3:12pm Cholesterol/HDL Ratio 4.1 H 3.0-3.6 02/06/2018 6:0502/06/2018 3: 12pm Creatine Kinase 39 IU/L 29-168 02/05/2018 12:27pm 02/05/2018 1:02pm Creatine Kinase MB 1.40 ng/mL 0-5.0 02/05/2018 12:27pm 02/05/2018 1: 06pm Troponin I < 0.001 ng/mL 0-0.300 02/05/2018 12:27pm 02/05/2018 1:06pm Procedures Procedure Status Date Provider(s) RPR S/N/AX/GEN/TRNK2.6-7.5CM Completed 04/12/17 SHEEBA HORTA MD EGD BIOPSY SINGLE/MULTIPLE Completed 05/10/17 IRINA DIAZ MD EGD GUIDE WIRE INSERTION Completed 05/10/17 IRINA DIAZ MD HEMODIALYSIS ACCESS STUDY Completed 05/07/17 EMERGENCY DEPT VISIT Completed 11/26/17 X-ray of chest, single view Active 02/05/18 AKIRA LYNN 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 Encounter Location Arrival/Admit Date Discharge/Depart Date Attending Provider Discharged Inpatient (obs) [facility] 02/05/18 2:04pm 05/19 6:50pm ROB VEGA MD Departed Emergency Room [facility] 01/14/18 1:22pm 1:54pm KATT GALDAMEZ MD Departed Emergency Room [facility] 11/26/17 2:58pm 4:48pm SHEEBA HORTA MD Departed Emergency Room [facility] 06/17/17 6:45pm 9:23pm ERICA GARCIAS MD Registered Surgical Day Care [facility] 05/10/17 6:46am JUANCHO CAMPBELL MD Departed Emergency Room [facility] 05/07/17 1:26pm 3:25pm KATT GALADMEZ MD Registered Clinic [facility] 04/18/17 7:04am CHRISTIE GARCIA MD Departed Emergency Room [facility] 04/12/17 1:37pm 7:02pm SHEEBA HORTA MD
--- NOTE | 2018-02-09 15:54 | Operative Report ---
DATE OF PROCEDURE: February 09, 2018 INDICATIONS: 1. Carotid artery disease, syncope. 2. Peripheral arterial disease with severe claudication left lower extremity. PROCEDURES PERFORMED: 1. Abdominal aortogram. 2. Bilateral lower extremity angiograms. 3. Selective placement of the catheter from the right femoral artery to the left superficial femoral artery. 4. Additional 3rd-order catheter placement from the right femoral artery to the left anterior tibial artery. 5. Atherectomy and secondary thrombectomy with drug-coated balloon angioplasty of the left popliteal artery. 6. Atherectomy and balloon angioplasty of the left anterior tibial artery. 7. Bilateral extracranial carotid angiograms. COMPLICATIONS: None. RECOMMENDATIONS: Dual antiplatelet therapy for life. Access was obtained in the right femoral artery. A 6-Finnish sheath was placed. Diagnostic abdominal aortogram revealed widely patent abdominal aorta and iliacs bilaterally. Proximal popliteal arteries were heavily calcified, but distal vessels could not be visualized. The catheter was then advanced from the right femoral artery to the left superficial femoral artery (3rd-order catheter placement), heavily calcified moderate 30% to 50% disease in the femoral arteries. The left popliteal artery was completely occluded. Distal vessels could not be visualized. The catheter was then advanced from the right femoral artery to the left anterior tibial artery (additional 3rd-order catheter placement), confirming 3-vessel runoff to the left foot through diseased and calcified pedal vessels. Bilateral extracranial carotid angiograms demonstrated heavily calcified common carotids bilaterally. The internal carotid artery was 50% on the right side, and 30% to 50% on the left side stenosis was noted. A decision was made to intervene on the left popliteal and anterior tibial artery. The patient received 8000 units of intra-arterial heparin with an ACT of 284. The sheath was exchanged to a 45 cm sheath, advanced from the right femoral artery to the left superficial femoral artery. The lesion was crossed using a Roadrunner wire. Orbital atherectomy of the popliteal and anterior tibial arteries was performed. Large amounts of visible thrombus in the left popliteal artery necessitating manual aspiration thrombectomy. Following this, balloon angioplasty with a 4 mm, and then drug-coated balloon angioplasty with a 5 mm Lutonix balloon was performed. Excellent end result, less than 10% residual stenosis. Excellent 3-vessel runoff to the left foot. The right groin sheath was secured in place for removal under manual pressure. Patient observed in the hospital for 6 hours, discharged home same day. Job#: [id number] EV
== END | disposition home or self-care (01) ==
LOC: CATH LAB 07:07
PROVIDERS: ATTEND Internal Medicine Interventional Cardiology
DX: I70.218 Atherosclerosis of native arteries of extremities with intermittent claudication, other extremity (principal); I70.92 Chronic total occlusion of artery of the extremities; I65.29 Occlusion and stenosis of unspecified carotid artery; I95.2 Hypotension due to drugs; T46.5X5A Adverse effect of other antihypertensive drugs, initial encounter; I10 Essential (primary) hypertension; E07.9 Disorder of thyroid, unspecified; E78.00 Pure hypercholesterolemia, unspecified; Z88.1 Allergy status to other antibiotic agents; Z88.5 Allergy status to narcotic agent; Z88.8 Allergy status to other drugs, medicaments and biological substances; Z01.812 Encounter for preprocedural laboratory examination; Z82.49 Family history of ischemic heart disease and other diseases of the circulatory system
CPT/HCPCS: 36222; 36415; 37225; 37229; 75625; 80053; 80061; 85025; 85347; C1724; C1725 ×2; C1769 ×2; C1887; J1644; J2001; J2250; J2720; J3370; J7030; Q9967; 36140; 77002; 92924

== ENCOUNTER 2018-02-15 10:56 | Emergency (ER) | payer MEDICARE ==
[~2018-02-15] VITALS: Ht 160 cm; Wt 66.2 kg
[~2018-02-15 10:56] MED LIST changes: -ALPRAZOLAM 0.5 MG TAB ONE; -BRILINTA90 MG PO; -CLOPIDOGREL75 MG PO; -DIPHENHYDRAMINE HCL 25 MG CAP ONE; -FENTANYL CITRATE/PF 100MCG/2 ML INJ ONE; -HEPARIN SOD (PORCINE) 1000 UNIT/ML 30ML ONE; -HEPARIN SOD/SOD CHLORIDE 2,000 ML ONE; -IOPAMIDOL 370 MG/ML 200 ML INFUS..BTL INJ ONE; -LABETALOL HCL100 MG PO; -LIDOCAINE HCL 2% LOCAL 20 ML VIAL ONE; -MIDAZOLAM HCL 2 MG/2 ML VIAL ONE; -NITROGLYCERIN/D5W 200 MCG/ML 250 ML ONE; -PRASUGREL 10 MG TAB ONE; -PROTAMINE SULFATE 10 MG/ML 5 ML VIAL ONE; -SODIUM CHLORIDE 0.9% 1000ML 1,000 ML ONE; -SODIUM CHLORIDE 0.9% 50ML 50 ML ONE; -VANCOMYCIN 1GM/NS 250 ML 250 ML ONE; -VERAPAMIL HCL 2.5 MG/ML 2 ML VIAL ONE
[2018-02-15] MEDS ORDERED: CLOPIDOGREL75 MG PO (11:10)
[2018-02-15] MEDS ORDERED: BRILINTA90 MG PO (11:10)
[2018-02-15 12:07] LABS: BASOPHILS # (AUTO) 0.1 (0.0-0.1); BASOPHILS % 0.8 % (0.0-1.0); EOSINOPHILS # (AUTO) 0.1 (0.0-0.4); EOSINOPHILS % 0.7 % (0.0-6.0); HEMATOCRIT 37.3 % (34.2-44.1); HEMOGLOBIN 12.3 g/dL (12.0-16.0); LYMPHOCYTES # (AUTO) 1.4 (1.0-3.2); MONOCYTES # (AUTO) 0.8 (0.2-0.8); MONOCYTES % 8.3 % (4.4-11.3); NEUTROPHILS # (AUTO) 6.8 (2.1-6.9); NEUTROPHILS % 74.8 % (38.7-80.0); PLATELET COUNT 333 x10e3/uL (140-360); RED BLOOD COUNT 3.97 x10e6/uL (3.6-5.1); RED CELL DISTRIBUTION WIDTH 13.1 % (11.7-14.4)
[2018-02-15 12:15] LABS: PROTHROMBIN TIME 12.4 seconds (11.9-14.5)
[2018-02-15 12:16] LABS: PARTIAL THROMBOPLASTIN TIME 24.2 seconds (23.8-35.5)
[2018-02-15 12:23] LABS: ALBUMIN 3.1 g/dL (3.5-5.0); ALBUMIN/GLOBULIN RATIO 0.9 (0.8-2.0); ANION GAP 14.6 mmol/L (8-16); CALCIUM 10.5 mg/dL (8.4-10.2); CREATININE, SERUM 1.31 mg/dL (0.57-1.11); POTASSIUM 3.6 mmol/L (3.5-5.1)
[2018-02-15] MEDS ORDERED: SODIUM CHLORIDE 0.9% 500ML 500 ML ONE (13:57)
[2018-02-15] MEDS ORDERED: SODIUM CHLORIDE 0.9% 500ML 500 ML IV ONE (14:00)
[2018-02-15] MEDS ORDERED: IOPAMIDOL 370 MG/ML 200 ML INFUS..BTL INJ ONE (14:46)
[2018-02-15] MEDS ORDERED: SODIUM CHLORIDE 0.9% 50ML 50 ML ONE (14:46)
--- NOTE | 2018-02-15 14:55 | Diagnostic Imaging Report ---
PROCEDURE: CT scan of the chest WITH intravenous contrast, using pulmonary embolus protocol. TECHNIQUE: The chest was scanned utilizing a multidetector helical scanner from the lung apex through the level of the adrenal glands after the IV administration of 60 cc of Isovue 370. Coronal and sagittal multiplanar reformations were obtained. COMPARISON: Chest x-ray 02/05/2018. INDICATIONS: SHORTNESS OF BREATH, HARD TO CATCH HER BREATH FINDINGS: Vasculature: The main pulmonary artery, right and left pulmonary arteries, and their visualized lobar and segmental branches are patent, without filling defect. The pulmonary outflow tract is of normal caliber. There is no ectasia or aneurysmal dilatation of the thoracic aorta. Atherosclerotic calcification of the aortic arch and great vessel origins with mild proximal left subclavian arterial stenosis. Atherosclerotic calcification of the left anterior descending coronary artery. Lungs and Airways: Linear and reticular opacities predominantly within the dependent lower lobes compatible with subsegmental atelectasis. No consolidation, gross fibrotic change, or bronchiectasis. Trachea, mainstem bronchi, and the central lobar and segmental bronchi are patent. Pleura: No pleural effusion or pneumothorax. Heart and mediastinum: The visualized portions of the thyroid gland are normal. There is no axillary, hilar, or mediastinal lymphadenopathy. Prominent of mediastinal fat is noted. No pericardial effusion. No right ventricular dilatation or septal bowing. Soft tissues: No focal soft tissue abnormality. Abdomen: Visualized portions of the liver, spleen, pancreas, adrenals, and left kidney are unremarkable. Partially visualized surgical clips in the right retroperitoneal region with associated fat stranding, presumably related to reported history of right nephrectomy and resultant fat necrosis. Bones: No osseous destructive lesions. Trabeculated, nonaggressive appearing lucent lesion in the left side of the manubrium likely to represent a hemangioma. IMPRESSION: No pulmonary embolus to the level of the segmental branch pulmonary arteries. Atherosclerotic vascular disease. Minimal subsegmental atelectasis in the dependent lower lobes. Otherwise clear lungs. Small hiatal hernia. Dictated by: Lemuel Chavez M.D. on 02/15/2018 at 14:57 Electronically approved by: Lemuel Chavez M.D. on 02/15/2018 at 14:57
[2018-02-15] MEDS ORDERED: SODIUM CHLORIDE 0.9% 1000ML 1,000 ML IV SCH (15:00)
[2018-02-15 15:07] LABS: CREATINE KINASE 41 IU/L (29-168)
== END 2018-02-15 17:43 | disposition home or self-care (01) ==
LOC: ER 10:56
DX: R06.09 Other forms of dyspnea (principal); M79.662 Pain in left lower leg; I10 Essential (primary) hypertension; E78.5 Hyperlipidemia, unspecified; E07.9 Disorder of thyroid, unspecified; Z85.53 Personal history of malignant neoplasm of renal pelvis
CPT/HCPCS: 36415; 71260; 80053; 82550; 82553; 83880; 84484; 85025; 85610; 85730; 93005; 93971; 99284; J7040; Q9967

== ENCOUNTER 2018-03-08 07:53 | Emergency (ER) | payer MEDICARE ==
[~2018-03-08] VITALS: Ht 160 cm; Wt 66.2 kg
[~2018-03-08 07:53] MED LIST changes: +BRILINTA90 MG PO; +CLOPIDOGREL75 MG PO
--- OUTSIDE RECORDS SUMMARY | 2018-03-08 07:57 | XMS REPORT | Continuity of Care Document ---
Author Author [facility] Organization [facility] Address [address] [place] [address] Phone Unavailable Care Team Providers Care Classification Clerk Name Role Phone ROB DIAZ MD PCP Insurance Providers Guarantor Shira Esparza Address [address] [place] [address] Email PTDECLINED Payer [employer] Policy Number [id number] Subscriber's Name Shira Esparza Relationship 18 Self / Same As Patient Group Number [id number] Group Name RETIRED Effective Date 16 Advance Directives Directive Response Recorded Date/Time Does the patient have an advance directive? No 02/05/18 3:07pm If yes, is advance directive on file with [facility]? No 02/05/18 3:07pm If not on file with [facility] will patient provide a copy? No 02/05/18 3:07pm Do you have a Directive to Physician? No 02/15/18 11:23am Do you have a Medical Power of Nurses Assistant? No 02/15/18 11:23am Do you have an out of hospital Do Not Resuscitate Order? No 02/15/18 11:23am Do you have any special needs we should be aware of? No 02/15/18 11:23am Do you have a support person here with you today? Yes 02/15/18 11:23am Did patient receive Notice of Privacy Practices? Yes 02/15/18 11:23am Did patient receive patient rights and responsibilities? Yes 02/15/18 11:23am Problems Medical Problem Onset Date Status Chest pain Unknown Diarrhea 08/20/2015 Acute Dizziness Unknown Acute HTN (hypertension) Unknown Nausea Unknown Acute Syncope Unknown Medications Current Home Medications Medication Dose Units Route Directions Days Qty Instructions Start Date Amlodipine 5 Mg Oral Daily Aspirin (Aspir 81) 81 Mg Tablet.dr 81 Mg Oral Daily Atenolol 100 Mg Tablet 100 Mg Oral Bedtime Benazepril Hcl 40 Mg Tablet 20 Mg Oral Bedtime Calcium Carbonate/Vitamin D3 (Os-Garcia 500+D Tablet) 1 Each Tablet 500 Mg Oral Three Times A Day 30 Tab Clopidogrel Bisulfate (Clopidogrel) 75 Mg Tablet 75 Mg Oral Daily 30 Tab Levothyroxine Sodium 75 Mcg Tablet 100 Mcg Oral Daily 30 Tab Liothyronine Sodium 5 Mcg Tablet 5 Mcg Oral Daily Lovastatin 40 Mg Tablet 40 Mg Oral Bedtime Ticagrelor (Brilinta) 90 Mg Tablet 90 Mg Oral Twice A Day Past Home Medications Medication Directions Ordered Status [...] 8.5 Mg Oral Twice A Day Discontinued [place]-3 Fatty Acids/Fish Oil ([place] 3 Fish Oil Softgel) 1 Each Capsule., Discontinued Omeprazole 40 Mg Capsule., 40 Mg Oral Daily Discontinued Omeprazole 40 [...] Applicable Smoking Status Start Date Stop Date Unknown if ever smoked Hospital Discharge Instructions No hospital discharge instruction information available. Plan of Care Discharge Date 02/15/18 5:43pm Disposition HOME, SELF-CARE Condition at Discharge Stable Instructions/Education Provided Dyspnea Prescriptions See Medication Section Referrals ROB DIAZ MD Order Date: As needed Address: [address] [place] [id number] Additional Instructions/Education Call for follow up appointment to see Dr. Diaz tomorrow in the office. Continue to take the medication as prescribed by Ashleigh Diaz and Derrick. discussed at the bedside, drink fluids, rest and return to the emergency department for any fever, shortness of breath, chest pain, abdominal pain, trouble handling oral secretions or any new concerns. Functional Status No functional status information available. Allergies, Adverse Reactions, Alerts Allergen Type Severity Reaction Status Last Updated Codeine Allergy Mild Active 04/12/17 Sulfamethoxazole Adverse Reaction Severe NONAROUSABLE Active 04/12/17 Trimethoprim Adverse Reaction Severe NONAROUSABLE Active 04/12/17 Promethazine Allergy Unknown Active 04/12/17 Levofloxacin Allergy Severe Unconscious Active 02/15/18 Immunizations No immunization information available. Vital Signs Acute Vital Signs Vital Response Date/Time Temperature (Fahrenheit) 97.9 degrees F (97.6 - 99.5) 02/09/2018 7:00am Pulse Pulse Rate (adult) 71 bpm (60 - 90) 02/09/2018 4:26pm Respiratory Rate 18 bpm (12 - 24) 02/09/2018 4:26pm Blood Pressure 156/74 mm Hg 02/09/2018 4:26pm Height 5 ft 3 in 02/15/2018 11:04am Weight 146 lb 02/15/2018 11:04am Body Mass Index 25.9 kg/m^2 02/15/2018 11:04am Results Laboratory Results Test Name Result Units Flags Reference Collection Date/Time Result Date/ Time Comments D-Dimer Quantitative (PE/DVT) 1.82 ug/mLFEU H 0.00-0.45 05/07/2017 1: 50pm 05/07/2017 2:22pm As with all in vitro diagnostic tests, the test results should be interpreted by the physician in conjunction with clinical findings and other test results. Test results are reported in NEW D-dimer units(ug/mLFEU). Triglycerides Level 182 MG/DL H 0-149 02/08/2018 1:37pm 02/08/2018 2: 04pm Cholesterol Level 159 MD/DL 0-199 02/08/2018 1:37pm 02/08/2018 2:04pm Less than 200 mg/dL Low Risk 201 - 239 mg/dL Borderline Risk 240 mg/dl and greater High Risk LDL Cholesterol 86 MG/DL 60-130 02/08/2018 1:37pm 02/08/2018 2:04pm HDL Cholesterol 37 MG/DL L 40-60 02/08/2018 1:37pm 02/08/2018 2:04pm Cholesterol/HDL Ratio 4.3 H 3.0-3.6 02/08/2018 1:37pm 02/08/2018 2: 04pm Activated Clotting Time 119 sec 02/09/2018 UNK 02/09/2018 10:15am Line pull <170 sec or baseline Peripheral and Neuroradiology <400 sec Angioplasty 220 sec Urine Color YELLOW YELLOW 02/05/2018 6:29pm 02/05/2018 6:37pm Urine Clarity SL CLOUDY CLEAR 02/05/2018 6:29pm 02/05/2018 6:37pm Urine Specific [place] 1.025 1.010-1.025 02/05/2018 6:29pm 2017 6:37pm Urine [...] MODERATE H RARE 02/05/2018 6:29pm 02/05/2018 6:48pm Magnesium Level 1.3 MG/DL 1.3-2.1 02/06/2018 6:05am 02/06/2018 7:25am White Blood Count 9.14 x10e3/uL 4.8-10.8 02/15/2018 11:30am 02/15/2018 12:08pm Red Blood Count 3.97 x10e6/uL 3.6-5.1 02/15/2018 11:02/15/2018 12: 08pm Hemoglobin 12.3 g/dL 12.0-16.0 02/15/2018 11:02/15/2018 12:08pm Hematocrit 37.3 % 34.2-44.1 02/15/2018 11:02/15/2018 12:08pm Mean Corpuscular Volume 94.0 fL 81-99 02/15/2018 11:02/15/2018 12: 08pm Mean Corpuscular Hemoglobin 31.0 pg 28-32 02/15/2018 11:2017 12:08pm Mean Corpuscular Hemoglobin Concent 33.0 g/dL 31-35 02/15/2018 11:02/15/2018 12:08pm Red Cell Distribution Width 13.1 % 11.7-14.4 02/15/2018 11:2017 12:08pm Platelet Count 333 x10e3/uL 140-360 02/15/2018 11:02/15/2018 12: 08pm Neutrophils (%) (Auto) 74.8 % 38.7-80.0 02/15/2018 11:02/15/2018 12:08pm Lymphocytes (%) (Auto) 15.0 % L 18.0-39.1 02/15/2018 11:02/15/2018 12:08pm Monocytes (%) (Auto) 8.3 % 4.4-11.3 02/15/2018 11:02/15/2018 12: 08pm Eosinophils (%) (Auto) 0.7 % 0.0-6.0 02/15/2018 11:02/15/2018 12: 08pm Basophils (%) (Auto) 0.8 % 0.0-1.0 02/15/2018 11:02/15/2018 12: 08pm IM GRANULOCYTES % 0.4 % 0.0-1.0 02/15/2018 11:02/15/2018 12:08pm Neutrophils # (Auto) 6.8 2.1-6.9 02/15/2018 11:02/15/2018 12: 08pm Lymphocytes # (Auto) 1.4 1.0-3.2 02/15/2018 11:30am 02/15/2018 12: 08pm Monocytes # (Auto) 0.8 0.2-0.8 02/15/2018 11:3002/15/2018 12:08pm Eosinophils # (Auto) 0.1 0.0-0.4 02/15/2018 11:3002/15/2018 12: 08pm Basophils # (Auto) 0.1 0.0-0.1 02/15/2018 11:3002/15/2018 12:08pm Absolute Immature Granulocyte (auto 0.04 x10e3/uL 0-0.1 02/15/2018 11: 3002/15/2018 12:08pm Prothrombin Time 12.4 seconds 11.9-14.5 02/15/2018 11:3002/15/2018 12:16pm Prothromb Time International Ratio 1.00 02/15/2018 11:302017 12:16pm Oral Anticoagulant Therapy INR Values: 1. Low Intensity Therapy 1.5 - 2.0 2. Moderate Intensity Therapy 2.0 - 3.0 3. High Intensity Therapy(1) 2.5 - 3.5 4. High Intensity Therapy(2) 3.0 - 4.0 5. Panic Value INR > 5.0 Activated Partial Thromboplast Time 24.2 seconds 23.8-35.5 02/15/2018 11 :3002/15/2018 12:16pm Sodium Level 142 mmol/L 136-145 02/15/2018 11:3002/15/2018 12:24pm Potassium Level 3.6 mmol/L 3.5-5.1 02/15/2018 11:3002/15/2018 12: 24pm Chloride Level 104 mmol/L 98-107 02/15/2018 11:3002/15/2018 12:24pm Carbon Dioxide Level 27 mmol/L 22-02/15/2018 11:3002/15/2018 12: 24pm Anion Gap 14.6 mmol/L 8-02/15/2018 11:3002/15/2018 12:24pm Blood Urea Nitrogen 13 mg/dL 7-02/15/2018 11:02/15/2018 12: 24pm Creatinine 1.31 mg/dL H 0.57-1.11 02/15/2018 11:02/15/2018 12:24pm BUN/Creatinine Ratio 10 6-25 02/15/2018 11:02/15/2018 12:24pm Estimat Glomerular Filtration Rate 39 ML/MIN L 60- 02/15/2018 11: 12:24pm Ranges were taken from the National Kidney Disease Education Program and the National Kidney Foundation literature. Reference ranges: 60 or greater: Normal 16-59 (for 3 consecutive months): Chronic kidney disease 15 or less: Kidney failure Glucose Level 95 mg/dL 74-118 02/15/2018 11:02/15/2018 12:24pm Calcium Level 10.5 mg/dL H 8.4-10.2 02/15/2018 11:02/15/2018 12: 24pm Total Bilirubin 0.8 mg/dL 0.2-1.2 02/15/2018 11:02/15/2018 12: 24pm Aspartate Amino Transf (AST/SGOT) 16 IU/L 5-34 02/15/2018 11:02/15 12:24pm Alanine Aminotransferase (ALT/SGPT) 9 IU/L 0-55 02/15/2018 11: 12:24pm Total Protein 6.6 g/dL 6.5-8.1 02/15/2018 11:02/15/2018 12:24pm Albumin 3.1 g/dL L 3.5-5.0 02/15/2018 11:02/15/2018 12:24pm Globulin 3.5 g/dL 2.3-3.5 02/15/2018 11:02/15/2018 12:24pm Albumin/Globulin Ratio 0.9 0.8-2.0 02/15/2018 11:02/15/2018 12: 24pm Alkaline Phosphatase 72 IU/L 40-150 02/15/2018 11:02/15/2018 12: 24pm B-Type Natriuretic Peptide 288.6 pg/mL H 0-100 02/15/2018 11:2017 2:23pm Creatine Kinase 41 IU/L 29-168 02/15/2018 11:30am 02/15/2018 3:08pm Creatine Kinase MB 1.30 ng/mL 0-5.0 02/15/2018 11:30am 02/15/2018 3: 14pm Troponin I < 0.001 ng/mL 0-0.300 02/15/2018 11:30am 02/15/2018 3:14pm Procedures Procedure Status Date Provider(s) EGD BIOPSY SINGLE/MULTIPLE Completed 05/10/17 IRINA DIAZ MD EGD GUIDE WIRE INSERTION Completed 05/10/17 IRINA DIAZ MD HEMODIALYSIS ACCESS STUDY Completed 05/07/17 EMERGENCY DEPT VISIT Completed 11/26/17 X-ray of chest, single view Active 02/05/18 AKIRA LYNN NP Computed tomography of chest with contrast Active 02/15/18 DHRUV MOLINA MD Encounters Encounter Location Arrival/Admit Date Discharge/Depart Date Attending Provider Departed Emergency Room [facility] 02/15/18 10:56am 02/15 5:43pm DHRUV MOLINA MD Registered Surgical Day Care [facility] 02/09/18 7:07am JIM PETERS MD Discharged Inpatient (obs) [facility] 02/05/18 2:04pm 05/19 6:50pm ROB DIAZ MD Departed Emergency Room [facility] 01/14/18 1:22pm 1:54pm KATT GALDAMEZ MD Departed Emergency [facility] 11/26/17 2:58pm 4:48pm SHEEBA HORTA MD Departed Emergency [facility] 06/17/17 6:45pm 9:23pm ERICA GARCIAS MD Registered Surgical Day Care [facility] 05/10/17 6:46am JUANCHO CAMPBELL MD Departed Emergency [facility] 05/07/17 1:26pm 3:25pm KATT GALDAMEZ MD
[2018-03-08] MEDS ORDERED: LABETALOL HCL100 MG PO (08:34)
== END 2018-03-08 09:40 | disposition home or self-care (01) ==
LOC: ER 07:53
DX: I10 Essential (primary) hypertension (principal); E03.9 Hypothyroidism, unspecified; I73.9 Peripheral vascular disease, unspecified
CPT/HCPCS: 93005; 99283

== ENCOUNTER 2018-03-26 08:38 | Emergency (ER) | payer MEDICARE ==
[~2018-03-26] VITALS: Ht 160 cm; Wt 64.4 kg
[~2018-03-26 08:38] MED LIST changes: +LABETALOL HCL100 MG PO
[2018-03-26] MEDS ORDERED: CYCLOBENZAPRINE HCL 10 MG TAB PO STA (09:59)
[2018-03-26] MEDS ORDERED: IBUPROFEN 600 MG TAB PO STA (09:59)
--- NOTE | 2018-03-26 11:30 | Diagnostic Imaging Report ---
History:pain in left side of neck Comparison studies:None Technique: Axial images were obtained from the skull base to the vertex. Coronal and sagittal images reconstructed from the axial data. Intravenous contrast: None Findings: Scalp/skull: No abnormalities. Extra-axial spaces: No masses. No fluid collections. Brain sulci: Mildly prominent. Ventricles: Mild compensatory dilatation. No hydrocephalus. Parenchyma: Scattered hypodensities in the supratentorial white matter are small vessel ischemic changes. No masses, hemorrhage, acute or chronic cortical vascular insults. Sellar/suprasellar region: No abnormalities. Craniocervical junction: Patent foramen magnum. No Chiari one malformation. Incidental findings: Atherosclerotic calcifications in the carotid siphons and distal vertebral arteries. Impression: No acute abnormalities. Chronic findings: 1. Mild generalized volume loss. 2. Moderate supratentorial white matter small vessel ischemic changes. Signed by: Dr. Que Howe M.D. on 03/26/2018 5:32 PM
--- NOTE | 2018-03-26 11:45 | Diagnostic Imaging Report ---
History: Shooting pain left neck Comparison studies: None Technique: Axial images were obtained through the cervical region. Coronal and sagittal images reconstructed from the axial data. Intravenous contrast: None Findings: Airway: Patent. Atlantoaxial articulation: Intact Alignment: Reversal of normal cervical lordosis centered at C5. Minimal grade 1 anterolisthesis of C3 on C4 and minimal grade 1 retrolisthesis of C5 on C6. Cervicomedullary junction: No abnormalities. Patent foramen magnum. Soft tissues: No gross abnormalities. Vertebrae: Bones are moderately demineralized No fractures, neoplasm or infection. Degenerative changes: Severely degenerated disks at C4-5 and C5-6. 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 No significant spinal canal stenosis. No disc herniations. IMPRESSION: 1. Bones moderately demineralized. No fractures. 2. 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 3. Foraminal stenosis at both levels is worse on the left at C4-5 and on the right at C5-6. 4. No significant spinal canal stenosis. 5. No disc herniations. Signed by: Dr. Que Howe M.D. on 03/26/2018 5:34 PM
--- OUTSIDE RECORDS SUMMARY | 2018-07-04 14:28 | XMS REPORT | Continuity of Care Document ---
Author Author [facility] Organization [facility] Address [address] [place] [address] Phone Unavailable Care Team Providers Care Sand Shoveler Name Role Phone ROB EVGA MD PCP Insurance Providers Guarantor Shira Esparza Address [address] [place] [address] Email PTDECLINED Payer [employer] Policy Number [id number] Subscriber's Name Shira Esparza Relationship 18 Self / Same As Patient Group Number [id number] Group Name RETIRED Effective Date 16 Advance Directives Directive Response Recorded Date/Time Does the patient have an advance directive? No 02/05/18 3:07pm If yes, is advance directive on file with [facility]? No 02/05/18 3:07pm If not on file with [facility] will patient provide a copy? No 02/05/18 3:07pm Do you have a Directive to Physician? No 03/08/18 8:01am Do you have a Medical Power of Rigging Worker? No 03/08/18 8:01am Do you have an out of hospital Do Not Resuscitate Order? No 03/08/18 8:01am Do you have any special needs we should be aware of? No 03/08/18 8:01am Do you have a support person here with you today? Yes 06/07/18 8:01am Did patient receive Notice of Privacy Practices? Yes 03/08/18 8:01am Did patient receive patient rights and responsibilities? Yes 03/08/18 8:01am Problems Medical Problem Onset Date Status Chest pain Unknown Diarrhea 08/20/2015 Acute Dizziness Unknown Acute HTN (hypertension) Unknown Nausea Unknown Acute Syncope Unknown Medications Current Home Medications Medication Dose Units Route Directions Days Qty Instructions Start Date Aspirin (Aspir 81) 81 Mg Tablet.dr 81 Mg Oral Daily Calcium Carbonate/Vitamin D3 (Os-Garcia 500+D Tablet) 1 Each Tablet 500 Mg Oral Three Times A Day 30 Tab Labetalol Hcl 100 Mg Tablet 50 Mg Oral Twice A Day 30 Tab Levothyroxine Sodium 75 Mcg Tablet 100 Mcg Oral Daily 30 Tab Liothyronine Sodium 5 Mcg Tablet 5 Mcg Oral Daily Lovastatin 40 Mg Tablet 40 Mg Oral Bedtime Past Home Medications Medication Directions Ordered Status Amlodipine , 5 Mg Oral Daily Discontinued Amlodipine Besylate 5 Mg Tablet, 5 Mg Oral Daily Discontinued Aspirin 81 Mg Tab.chew, 81 Mg Oral Bedtime Discontinued Aspirin (Aspirin Chew) 81 Mg Chew, 81 Mg Oral Bedtime Discontinued Atenolol 100 Mg Tablet, 100 Mg Oral Bedtime Discontinued Atenolol 100 Mg Tablet, 100 Mg Oral Bedtime Discontinued Azilsartan Medoxomil (Edarbi) 40 Mg Tablet, Daily Discontinued Benazepril Hcl 40 Mg Tablet, 20 Mg Oral Bedtime Discontinued Benazepril Hcl 40 Mg Tablet, 40 Mg Oral Bedtime Discontinued Calcium Carbonate (Oscal D) 500 Mg Tab, 500 Mg Oral Three Times A Day Discontinued Cephalexin (Keflex) 250 Mg Capsule, 250 Mg Oral Twice A Day Discontinued Clopidogrel Bisulfate (Clopidogrel) 75 Mg Tablet, 75 Mg Oral Daily Discontinued Docusate Sodium (Colace) 100 Mg Cap, [...] 8.5 Mg Oral Twice A Day Discontinued Wheat[place]-3 Fatty Acids/Fish Oil ([place] 3 Fish Oil Softgel) 1 Each Capsule., Discontinued Omeprazole 40 Mg Capsule.dr, 40 Mg Oral Daily Discontinued Omeprazole 40 Mg Capsule.dr, 40 Mg Oral Daily Discontinued Ticagrelor (Brilinta) 90 Mg Tablet, 90 Mg Oral Twice A Day Discontinued Tramadol Hcl (Ultram) 50 Mg Tablet, [...] information available. Plan of Care Discharge Date 03/08/18 9:40am Disposition HOME, SELF-CARE Condition at Discharge Stable Instructions/Education Provided Hypertension Forms Provided Work/School Excuse Prescriptions See Medication Section Referrals ROB VEGA MD Address: [address] [place] [id number] Additional Instructions/Education follow up with pcp take meds as directed by pcp Functional Status No functional status information available. Allergies, Adverse Reactions, Alerts Allergen Type Severity Reaction Status Last Updated Codeine Allergy Mild Active 03/08/18 Sulfamethoxazole Adverse Reaction Severe NONAROUSABLE Active 03/08/18 Trimethoprim Adverse Reaction Severe NONAROUSABLE Active 03/08/18 Promethazine Allergy Unknown Active 03/08/18 Levofloxacin Allergy Severe Unconscious Active 03/08/18 Immunizations No immunization information available. Vital Signs Acute Vital Signs Vital Response Date/Time Temperature (Fahrenheit) 97.9 degrees F (97.6 - 99.5) 02/09/2018 7:00am Pulse Pulse Rate (adult) 71 bpm (60 - 90) 02/09/2018 4:26pm Respiratory Rate 18 bpm (12 - 24) 02/09/2018 4:26pm Blood Pressure 156/74 mm Hg 02/09/2018 4:26pm Height 5 ft 3 in 03/08/2018 7:58am Weight 146 lb 03/08/2018 7:58am Body Mass Index 25.9 kg/m^2 03/08/2018 7:58am Results Laboratory Results Test Name Result Units Flags Reference Collection Date/Time Result Date/ Time Comments Triglycerides Level 182 MG/DL H 0-149 02/08/2018 [...] CLEAR 02/05/2018 6:29pm 02/05/2018 6:37pm Urine Specific [place] 1.025 1.010-1.025 02/05/2018 6:29pm 2017 6:37pm Urine pH 5 5 - 7 02/05/2018 6:29pm 02/05/2018 6:37pm Urine Leukocyte Esterase NEGATIVE NEGATIVE 02/05/2018 6:29pm 2017 6:37pm Urine Nitrite NEGATIVE NEGATIVE 02/05/2018 6:pm 02/05/2018 6:37pm Urine Protein NEGATIVE NEGATIVE 02/05/2018 6:pm 02/05/2018 6:37pm Urine Glucose (UA) NEGATIVE NEGATIVE 02/05/2018 6:29pm 02/05/2018 6: 37pm Urine Ketones NEGATIVE NEGATIVE 02/05/2018 6:29pm 02/05/2018 6:37pm Urine Urobilinogen 0.2 mg/dL 0.2 - 1 02/05/2018 6:29pm 02/05/2018 6: 37pm Urine Bilirubin NEGATIVE NEGATIVE 02/05/2018 6:pm 02/05/2018 6: 37pm Urine Blood NEGATIVE NEGATIVE 02/05/2018 6:pm 02/05/2018 6:37pm Urine WBC NONE /HPF 0-5 02/05/2018 6:29pm 02/05/2018 6:48pm Urine RBC NONE /HPF 0-5 02/05/2018 6:pm 02/05/2018 6:48pm Urine Bacteria MODERATE /HPF H NONE 02/05/2018 6:29pm 02/05/2018 6:48pm Urine Epithelial Cells FEW /LPF NONE 02/05/2018 6:29pm 02/05/2018 6: 48pm Urine Mucus MODERATE H RARE 02/05/2018 6:pm 02/05/2018 6:48pm Magnesium Level 1.3 MG/DL 1.3-2.1 02/06/2018 6:05am 02/06/2018 7:25am White Blood Count 9.14 x10e3/uL 4.8-10.8 02/15/2018 11:30am 02/15/2018 12:08pm Red Blood Count 3.97 x10e6/uL 3.6-5.1 02/15/2018 11:30am 02/15/2018 12: 08pm Hemoglobin 12.3 g/dL 12.0-16.0 02/15/2018 11:3002/15/2018 12:08pm Hematocrit 37.3 % 34.2-44.1 02/15/2018 11:30am 02/15/2018 12:08pm Mean Corpuscular Volume 94.0 fL 81-99 02/15/2018 11:30am 02/15/2018 12: 08pm Mean Corpuscular Hemoglobin 31.0 pg [...] 08pm Lymphocytes # (Auto) 1.4 1.0-3.2 02/15/2018 11:02/15/2018 12: 08pm Monocytes # (Auto) 0.8 0.2-0.8 02/15/2018 11:02/15/2018 12:08pm Eosinophils # (Auto) 0.1 0.0-0.4 02/15/2018 11:02/15/2018 12: 08pm Basophils # (Auto) 0.1 0.0-0.1 02/15/2018 11:02/15/2018 12:08pm Absolute Immature Granulocyte (auto 0.04 x10e3/uL [...] 12:24pm Blood Urea Nitrogen 13 mg/dL 7-02/15/2018 11:3002/15/2018 12: 24pm Creatinine 1.31 mg/dL H 0.57-1.11 02/15/2018 11:3002/15/2018 12:24pm BUN/Creatinine Ratio 10 6-02/15/2018 11:3002/15/2018 12:24pm Estimat Glomerular Filtration Rate 39 ML/MIN L 60- 02/15/2018 11:30 12:24pm Ranges were taken from the National Kidney Disease Education Program and the National Kidney Foundation literature. Reference ranges: 60 or greater: Normal 16-59 (for 3 consecutive months): Chronic kidney disease 15 or less: Kidney failure Glucose Level 95 mg/dL 74-118 02/15/2018 11:3002/15/2018 12:24pm Calcium Level 10.5 mg/dL H 8.4-10.2 02/15/2018 11:3002/15/2018 12: 24pm Total Bilirubin 0.8 mg/dL 0.2-1.2 02/15/2018 11:3002/15/2018 12: 24pm Aspartate Amino Transf (AST/SGOT) 16 IU/L 5-34 02/15/2018 11:3002/15 12:24pm Alanine Aminotransferase (ALT/SGPT) 9 IU/L 0-55 02/15/2018 11:30 12:24pm Total Protein 6.6 g/dL 6.5-8.1 02/15/2018 11:3002/15/2018 12:24pm Albumin 3.1 g/dL L 3.5-5.0 02/15/2018 11:3002/15/2018 12:24pm Globulin 3.5 g/dL 2.3-3.5 02/15/2018 11:3002/15/2018 12:24pm Albumin/Globulin Ratio 0.9 0.8-2.0 02/15/2018 11:3002/15/2018 12: 24pm Alkaline Phosphatase 72 IU/L 40-150 02/15/2018 11:3002/15/2018 12: 24pm B-Type Natriuretic Peptide 288.6 pg/mL H 0-100 02/15/2018 11:302017 2:23pm Creatine Kinase 41 IU/L 29-168 02/15/2018 11:3002/15/2018 3:08pm Creatine Kinase MB 1.30 ng/mL 0-5.0 02/15/2018 11:3002/15/2018 3: 14pm Troponin I < 0.001 ng/mL 0-0.300 02/15/2018 11:3002/15/2018 3:14pm Procedures Procedure Status Date Provider(s) EMERGENCY DEPT VISIT Completed 11/26/17 PLACE CATH CAROTID/INOM ART Completed 02/09/18 JIM PETERS MD SEC ART THROMBECTOMY ADD-ON Completed 02/09/18 JIM PETERS MD FEM/POPL REVAS W/ATHER Completed 02/09/18 JIM PETERS MD TIB/PER REVASC W/ATHER Completed 02/09/18 JIM PETERS MD X-ray of chest, single view Active 02/05/18 AKIRA LYNN NP Computed tomography of chest with contrast Active 02/15/18 DHRUV MOLINA MD Encounters Encounter Location Arrival/Admit Date Discharge/Depart Date Attending Provider Departed Emergency Room [facility] 03/08/18 7:53am 9:40am KATT GALDAMEZ MD Departed Emergency Room [facility] 02/15/18 10:56am 02/15 5:43pm DHRUV MOLINA MD Registered Surgical Day Care [facility] 02/09/18 7:07am JIM PETERS MD Discharged Inpatient (obs) [facility] 02/05/18 2:04pm 05/19 6:50pm ROB VEGA MD Departed Emergency Room [facility] 01/14/18 1:22pm 1:54pm KATT GALDAMEZ MD Departed Emergency Room [facility] 11/26/17 2:58pm 4:48pm SHEEBA HORTA MD Departed Emergency Room [facility] 06/17/17 6:45pm 9:23pm ERICA GARCIAS MD
== END 2018-03-26 12:16 | disposition home or self-care (01) ==
LOC: ER 08:38
DX: M54.2 Cervicalgia (principal); S16.1XXA Strain of muscle, fascia and tendon at neck level, initial encounter; G44.209 Tension-type headache, unspecified, not intractable; I10 Essential (primary) hypertension; E78.5 Hyperlipidemia, unspecified; E07.9 Disorder of thyroid, unspecified; Z85.528 Personal history of other malignant neoplasm of kidney
CPT/HCPCS: 70450; 72125; 99284

== ENCOUNTER 2018-10-16 17:46 | Emergency (ER) | payer MEDICARE ==
[~2018-10-16] VITALS: Ht 160 cm; Wt 64.4 kg
--- OUTSIDE RECORDS SUMMARY | 2018-10-16 17:52 | XMS REPORT | Continuity of Care Document ---
Author Author [facility] Interface Address Unknown Phone Unavailable Problems Problem Status Onset Date Classification Date Reported Comments Source Diarrhea Active 08/20/2015 Problem 03/26/2018 [facility] Chest pain Active Problem 03/26/2018 [facility] Dizziness Active Problem 03/26/2018 [facility] HTN Active Problem 03/26/2018 [facility] Nausea Active Problem 03/26/2018 [facility] Syncope Active Problem 03/26/2018 [facility] Medications Medication Details Route Status Patient Instructions Ordering Provider Order Date Source Amlodipine , 5 Mg Oral Daily Active 03/08/2018 [facility] Atenolol 100 Mg Tablet, 100 Mg Oral Bedtime Active 03/08/2018 [facility] Benazepril Hcl 40 Mg Tablet, 20 Mg Oral Bedtime Active 03/08/2018 [facility] Clopidogrel Bisulfate (Clopidogrel) 75 Mg Tablet, 75 Mg Oral Daily Active 03/08/2018 [facility] Ticagrelor (Brilinta) 90 Mg Tablet, 90 Mg Oral Twice A Day Active 03/08/2018 [facility] Amlodipine Besylate 5 Mg Tablet, 5 Mg Oral Daily Active 02/05/2018 [facility] Omeprazole 40 Mg Capsule.dr, 40 Mg Oral Daily Active 01/14/2018 [facility] Cephalexin (Keflex) 250 Mg Capsule, 250 Mg Oral Twice A Day Active 01/14/2017 [facility] Docusate Sodium (Colace) 100 Mg Cap, 100 Mg Oral Twice A Day Active 03/27/2016 [facility] Tramadol Hcl (Ultram) 50 Mg Tablet, 50 Mg Oral Every 4 Hours as needed for Pain Active 03/27/2016 [facility] Aspirin 81 Mg Tab.chew, 81 Mg Oral Bedtime Active 10/17/2015 [facility] Methocarbamol (Robaxin-750) 750 Mg Tablet, 750 Mg Oral Three Times A Day Active 07/27/2015 [facility] Am[place]-3 Fatty Acids/Fish Oil ([place]mes 3 Fish Oil Softgel) 1 Each Capsule., Active 07/27/2015 [facility] Tramadol Hcl (Ultram 50MG*) 50 Mg Tab, 50 Mg Oral Every 6 Hours for Pain Active 07/27/2015 [facility] Ubidecarenone (Co Q-10) 10 Mg Capsule, Active 07/27/2015 [facility] Aspirin (Aspirin Chew) 81 Mg Chew, 81 Mg Oral Bedtime Active 07/27/2014 [facility] Atenolol 100 Mg Tablet, 100 Mg Oral Bedtime Active 07/27/2014 [facility] Benazepril Hcl 40 Mg Tablet, 40 Mg Oral Bedtime Active 07/27/2014 [facility] Calcium Carbonate (Oscal D) 500 Mg Tab, 500 Mg Oral Three Times A Day Active 07/27/2014 [facility] Levothyroxine Sodium 75 Mcg Tablet, 75 Mcg Oral Daily Active 07/27/2014 [facility] Liothyronine Sodium 5 Mcg Tablet, 5 Mcg Oral Daily Active 07/27/2014 [facility] Lovastatin 40 Mg Tablet, 40 Mg Oral Bedtime Active 07/27/2014 [facility] Omeprazole 40 Mg Capsule., 40 Mg Oral Daily Active 07/27/2014 [facility] Ubidecarenone (Coq-10) 30 Mg Capsule, 30 Mg Oral Daily Active 07/27/2014 [facility] Azilsartan Medoxomil (Edarbi) 40 Mg Tablet, Daily Active 03/03/2013 [facility] Nisoldipine 17 Mg Tab.sr.24h, 8.5 Mg Oral Twice A Day Active 01/19/2013 [facility] Aspirin (Aspir 81) 81 Mg Tablet.dr Daily Active [facility] Calcium Carbonate/Vitamin D3 (Os-Garcia 500+D Tablet) 1 Each Tablet Three Times A Day Active [facility] Labetalol Hcl 100 Mg Tablet Twice A Day Active [facility] Levothyroxine Sodium 75 Mcg Tablet Daily Active [facility] Liothyronine Sodium 5 Mcg Tablet Daily Active [facility] Lovastatin 40 Mg Tablet Bedtime Active [facility] Allergies, Adverse Reactions, Alerts Substance Category Reaction Severity Reaction type Status Date Reported Comments Source Codeine Mild Allergy to Substance Active 03/26/2018 [facility] Labetalol SEVERE WEAKNESS Mild Allergy to Substance Active 03/26/2018 [facility] Sulfamethoxazole NONAROUSABLE Severe Propensity to adverse reactions Active 03/26/2018 [facility] Trimethoprim NONAROUSABLE Severe Propensity to adverse reactions Active 03/26/2018 [facility] Promethazine Unknown Allergy to Substance Active 03/26/2018 [facility] Levofloxacin Unconscious Severe Allergy to Substance Active 03/26/2018 [facility] Immunizations Immunization Date Given Site Status Last Updated Comments Source Results Order Name Results Value Reference Range Date Interpretation Comments Source Activated partial thromboplastin time (aPTT) in platelet poor plasma bycoagulation assay Activated partial thromboplastin time (aPTT) in platelet poor plasma bycoagulation assay 24.2 23.8 - 35.5 02/15/2018 [facility] Automated blood basophil count (count/volume) Automated blood basophil count (count/volume) 0.1 0.0 - 0.1 02/15/2018 [facility] Automated blood basophil count as percentage of total leukocytes Automated blood basophil count as percentage of total leukocytes 0.8 0.0 - 1.0 02/15/2018 [facility] Automated blood eosinophil count Automated blood eosinophil count 0.1 0.0 - 0.4 02/15/2018 [facility] Automated blood eosinophil count as percentage of total leukocytes Automated blood eosinophil count as percentage of total leukocytes 0.7 0.0 - 6.0 02/15/2018 [facility] Automated blood hematocrit (volume fraction) Automated blood hematocrit (volume fraction) 37.3 34.2 - 44.1 02/15/2018 [facility] Automated blood lymphocyte count as percentage ot total leukocytes Automated blood lymphocyte count as percentage ot total leukocytes 15.0 18.0 - 39.1 02/15/2018 [facility] Automated blood monocyte count as percentage of total leukocytes Automated blood monocyte count as percentage of total leukocytes 8.3 4.4 - 11.3 02/15/2018 [facility] Automated blood neutrophil count Automated blood neutrophil count 6.8 2.1 - 6.9 02/15/2018 [facility] Automated blood platelet count (count/volume) Automated blood platelet count (count/volume) 333 140 - 360 02/15/2018 [facility] Automated blood segmented neutrophil count as percentage of total leukocytes Automated blood segmented neutrophil count as percentage of total leukocytes 74.8 38.7 - 80.0 02/15/2018 [facility] Automated erythrocyte mean corpuscular hemoglobin (mass per erythrocyte) Automated erythrocyte mean corpuscular hemoglobin (mass per erythrocyte) 31.0 28 - 32 02/15/2018 [facility] Automated erythrocyte mean corpuscular hemoglobin concentration measurement (mass/volume) Automated erythrocyte mean corpuscular hemoglobin concentration measurement (mass/volume) 33.0 31 - 35 02/15/2018 [facility] Automated erythrocyte mean corpuscular volume Automated erythrocyte mean corpuscular volume 94.0 81 - 99 02/15/2018 [facility] Blood erythrocytes automated count (number/volume) Blood erythrocytes automated count (number/volume) 3.97 3.6 - 5.1 02/15/2018 [facility] Blood hemoglobin measurement (moles/volume) Blood hemoglobin measurement (moles/volume) 12.3 12.0 - 16.0 02/15/2018 [facility] Blood leukocytes automated count (number/volume) Blood leukocytes automated count (number/volume) 9.14 4.8 - 10.8 02/15/2018 [facility] Blood lymphocytes count (number/volume) Blood lymphocytes count (number/volume) 1.4 1.0 - 3.2 02/15/2018 [facility] Blood monocytes automated count (number/volume) Blood monocytes automated count (number/volume) 0.8 0.2 - 0.8 02/15/2018 [facility] Estimated glomerular filtration rate (GFR) determination Estimated glomerular filtration rate (GFR) determination 39 60 02/15/2018 [facility] Glucose measurement Glucose measurement 95 74 - 118 02/15/2018 [facility] INR in Platelet poor plasma by Coagulation assay INR in Platelet poor plasma by Coagulation assay 1.00 02/15/2018 [facility] Plasma globulin measurement (mass/volume) Plasma globulin measurement (mass/volume) 3.5 2.3 - 3.5 02/15/2018 [facility] Prothrombin time (PT) in platelet poor plasma by coagulation assay Prothrombin time (PT) in platelet poor plasma by coagulation assay 12.4 11.9 - 14.5 02/15/2018 [facility] Serum or plasma alanine aminotransferase measurement (enzymatic activity/volume) Serum or plasma alanine aminotransferase measurement (enzymatic activity/volume) 9 0 - 55 02/15/2018 [facility] Serum or plasma albumin measurement (mass/volume) Serum or plasma albumin measurement (mass/volume) 3.1 3.5 - 5.0 02/15/2018 [facility] Serum or plasma albumin/globulin mass ratio Serum or plasma albumin/globulin mass ratio 0.9 0.8 - 2.0 02/15/2018 [facility] Serum or plasma alkaline phosphatase measurement (enzymatic activity/volume) Serum or plasma alkaline phosphatase measurement (enzymatic activity/volume) 72 40 - 150 02/15/2018 [facility] Serum or plasma anion gap Serum or plasma anion gap 14.6 8 - 16 02/15/2018 [facility] Serum or plasma calcium measurement (mass/volume) Serum or plasma calcium measurement (mass/volume) 10.5 8.4 - 10.2 02/15/2018 [facility] Serum or plasma carbon dioxide, total measurement (moles/volume) Serum or plasma carbon dioxide, total measurement (moles/volume) 27 22 - 29 02/15/2018 [facility] Serum or plasma chloride measurement (moles/volume) Serum or plasma chloride measurement (moles/volume) 104 98 - 107 02/15/2018 [facility] Serum or plasma creatine kinase MB measurement (mass/volume) Serum or plasma creatine kinase MB measurement (mass/volume) 1.30 0 - 5.0 02/15/2018 [facility] Serum or plasma creatine kinase measurement (enzymatic activity/volume) Serum or plasma creatine kinase measurement (enzymatic activity/volume) 41 29 - 168 02/15/2018 [facility] Serum or plasma creatinine measurement (mass/volume) Serum or plasma creatinine measurement (mass/volume) 1.31 0.57 - 1.11 02/15/2018 [facility] Serum or plasma potassium measurement (moles/volume) Serum or plasma potassium measurement (moles/volume) 3.6 3.5 - 5.1 02/15/2018 [facility] Serum or plasma protein measurement (mass/volume) Serum or plasma protein measurement (mass/volume) 6.6 6.5 - 8.1 02/15/2018 [facility] Serum or plasma sodium measurement (moles/volume) Serum or plasma sodium measurement (moles/volume) 142 136 - 145 02/15/2018 [facility] Serum or plasma total bilirubin measurement (mass/volume) Serum or plasma total bilirubin measurement (mass/volume) 0.8 0.2 - 1.2 02/15/2018 [facility] Serum or plasma urea nitrogen measurement (mass/volume) Serum or plasma urea nitrogen measurement (mass/volume) 13 7 - 26 02/15/2018 [facility] Serum or plasma urea nitrogen/creatinine mass ratio Serum or plasma urea nitrogen/creatinine mass ratio 10 6 - 25 02/15/2018 [facility] Troponin I measurement by highly sensitive enzyme immunoassay Troponin I measurement by highly sensitive enzyme immunoassay null 0 - 0.300 02/15/2018 [facility] Red Cell Distribution Width 13.1 11.7 - 14.4 02/15/2018 [facility] IM GRANULOCYTES % 0.4 0.0 - 1.0 02/15/2018 [facility] Absolute Immature Granulocyte (auto 0.04 0 - 0.1 02/15/2018 [facility] Aspartate Amino Transf (AST/SGOT) 16 5 - 34 02/15/2018 [facility] B-Type Natriuretic Peptide 288.6 0 - 100 02/15/2018 [facility] Serum or plasma cholesterol in HDL measurement (mass/volume) Serum or plasma cholesterol in HDL measurement (mass/volume) 37 40 - 60 02/08/2018 [facility] Serum or plasma cholesterol in LDL measurement (mass/volume) Serum or plasma cholesterol in LDL measurement (mass/volume) 86 60 - 130 02/08/2018 [facility] Serum or plasma cholesterol measurement (mass/volume) Serum or plasma cholesterol measurement (mass/volume) 159 0 - 199 02/08/2018 [facility] Serum or plasma total cholesterol/cholesterol in HDL mass ratio Serum or plasma total cholesterol/cholesterol in HDL mass ratio 4.3 3.0 - 3.6 02/08/2018 [facility] Serum or plasma triglyceride measurement (mass/volume) Serum or plasma triglyceride measurement (mass/volume) 182 0 - 149 02/08/2018 [facility] Serum or plasma magnesium measurement (mass/volume) Serum or plasma magnesium measurement (mass/volume) 1.3 1.3 - 2.1 02/06/2018 [facility] Automated urine sediment leukocyte count by microscopy (number/high power field) Automated urine sediment leukocyte count by microscopy (number/high power field) NONE 0 - 5 02/05/2018 [facility] Bacteria detection in urine sediment by light microscopy Bacteria detection in urine sediment by light microscopy MODERATE NONE 02/05/2018 [facility] Epithelial cells detection in urine sediment by light microscopy Epithelial cells detection in urine sediment by light microscopy FEW NONE 02/05/2018 [facility] Erythrocytes detection in urine sediment by light microscopy Erythrocytes detection in urine sediment by light microscopy NONE 0 - 5 02/05/2018 [facility] Mucus detection in urine sediment by light microscopy Mucus detection in urine sediment by light microscopy MODERATE RARE 02/05/2018 [facility] Specific gravity of Urine by Test strip Specific gravity of Urine by Test strip 1.025 1.010 - 1.025 02/05/2018 [facility] Urine clarity Urine clarity SL CLOUDY CLEAR 02/05/2018 [facility] Urine color determination Urine color determination YELLOW YELLOW 02/05/2018 [facility] Urine erythrocytes detection Urine erythrocytes detection NEGATIVE NEGATIVE 02/05/2018 [facility] Urine glucose detection Urine glucose detection NEGATIVE NEGATIVE 02/05/2018 [facility] Urine ketones detection by automated test strip Urine ketones detection by automated test strip NEGATIVE NEGATIVE 02/05/2018 [facility] Urine leukocyte esterase detection by dipstick Urine leukocyte esterase detection by dipstick NEGATIVE NEGATIVE 02/05/2018 [facility] Urine nitrite detection Urine nitrite detection NEGATIVE NEGATIVE 02/05/2018 [facility] Urine pH measurement by automated test strip Urine pH measurement by automated test strip 5 5 - 7 02/05/2018 [facility] Urine protein measurement by test strip (mass/volume) Urine protein measurement by test strip (mass/volume) NEGATIVE NEGATIVE 02/05/2018 [facility] Urine total bilirubin measurement (mass/volume) Urine total bilirubin measurement (mass/volume) NEGATIVE NEGATIVE 02/05/2018 [facility] Urine urobilinogen measurement by test strip (mass/volume) Urine urobilinogen measurement by test strip (mass/volume) 0.2 0.2 - 1 02/05/2018 [facility] Activated clotting time at point of care Activated clotting time at point of care 119 [facility] Vital Signs Vital Sign Value Date Comments Source Encounters Location Location Details Encounter Type Encounter Number Reason For Visit Attending Provider ADM Date DC Date Status Source Departed Emergency Room [id number] ERICA GARCIAS MD 06/17/2017 06/17/2017 [facility] Departed Emergency Room [id number] SHEEBA HORTA MD 11/26/2017 11/26/2017 [facility] Departed Emergency Room [id number] KATT GALDAMEZ MD 01/14/2018 01/14/2018 [facility] Discharged Inpatient (obs) [id number] ROB VEGA MD 02/05/2018 02/06/2018 [facility] Registered [facility] [id number] JIM PETERS MD 02/09/2018 [facility] Departed Emergency Room [id number] DHRUV MOLINA MD 02/15/2018 02/15/2018 [facility] Departed Emergency Room [id number] KATT GALDAMEZ MD 03/08/2018 03/08/2018 [facility] Departed Emergency Room [id number] INNA SÁNCHEZ MD 03/26/2018 03/26/2018 [facility] Procedures Procedure Code Date Perfomer Comments Source Computed tomography of brain without radiopaque contrast [id number] 03/26/2018 [facility] Computed tomography of cervical spine without contrast [id number] 03/26/2018 [facility] Computed tomography of chest with contrast [id number] 02/15/[address] [facility] PL[address] CATH CAROTID/INOM ART [id number] 02/09/2018 [facility] SEC ART THROMBECTOMY ADD-ON [id number] 02/09/2018 [facility] FEM/POPL REVAS W/ATHER [id number] 02/09/2018 [facility] TIB/PER REVASC W/ATHER [id number] 02/09/2018 [facility] X-ray of chest, single view [id number] 02/05/2018 [facility] EMERGENCY DEPT VISIT [id number] 11/26/2017 [facility]
[2018-10-16] MEDS ORDERED: AMLODIPINE BESYL5 MG PO (18:58)
[2018-10-16] MEDS ORDERED: CLOPIDOGREL75 MG PO (18:58)
== END 2018-10-16 19:36 | disposition home or self-care (01) ==
LOC: ER 17:46
DX: S80.11XA Contusion of right lower leg, initial encounter (principal); W22.8XXA Striking against or struck by other objects, initial encounter; Y93.9 Activity, unspecified; Y92.009 Unspecified place in unspecified non-institutional (private) residence as the place of occurrence of the external cause; I10 Essential (primary) hypertension; E03.9 Hypothyroidism, unspecified; K21.9 Gastro-esophageal reflux disease without esophagitis; E78.5 Hyperlipidemia, unspecified; Z95.820 Peripheral vascular angioplasty status with implants and grafts; Z85.528 Personal history of other malignant neoplasm of kidney; Z79.02 Long term (current) use of antithrombotics/antiplatelets; Z79.82 Long term (current) use of aspirin; Z88.1 Allergy status to other antibiotic agents; Z88.5 Allergy status to narcotic agent; Z88.2 Allergy status to sulfonamides; Z88.8 Allergy status to other drugs, medicaments and biological substances
CPT/HCPCS: 99284

== ENCOUNTER 2019-08-17 12:50 | Emergency (ER) | payer MEDICARE ==
[~2019-08-17] VITALS: Ht 160 cm; Wt 64.4 kg
[2019-08-17] MEDS ORDERED: SODIUM CHLORIDE 0.9% 1000ML 1,000 ML IV STA (13:00)
[2019-08-17] MEDS ORDERED: ONDANSETRON HCL INJ 2MG/ML 2ML 2 MG/ML VIAL IV NR (13:00)
[2019-08-17] MEDS ORDERED: MORPHINE SULFATE 2 MG/ML SYR 1ML IV NR (13:00)
[2019-08-17] MEDS ORDERED: CEFTRIAXONE SOD 1 GM/NS 50 ML 50 ML IV NR (13:00)
[2019-08-17 13:51] LABS: BASOPHILS # (AUTO) 0.1 (0.0-0.1); BASOPHILS % 0.8 % (0.0-1.0); EOSINOPHILS # (AUTO) 0.1 (0.0-0.4); EOSINOPHILS % 0.5 % (0.0-6.0); HEMATOCRIT 42.5 % (34.2-44.1); HEMOGLOBIN 13.7 g/dL (12.0-16.0); LYMPHOCYTES # (AUTO) 2.1 (1.0-3.2); LYMPHOCYTES % 18.5 % (18.0-39.1); MEAN CORPUSCULAR HEMOGLOBIN 29.3 pg (28-32); MEAN CORPUSCULAR HGB CONC 32.2 g/dL (31-35); MEAN CORPUSCULAR VOLUME 90.8 fL (81-99); MONOCYTES # (AUTO) 0.7 (0.2-0.8); NEUTROPHILS # (AUTO) 8.2 (2.1-6.9); NEUTROPHILS % 73.7 % (38.7-80.0); PLATELET COUNT 343 x10e3/uL (140-360); RED BLOOD COUNT 4.68 x10e6/uL (3.6-5.1); RED CELL DISTRIBUTION WIDTH 12.6 % (11.7-14.4)
[2019-08-17 13:55] LABS: BILIRUBIN,URINE NEGATIVE (NEGATIVE); CLARITY,URINE CLEAR (CLEAR); COLOR,URINE YELLOW (YELLOW); KETONES,URINE NEGATIVE (NEGATIVE); LEUKOCYTE ESTERASE ,URINE TRACE (NEGATIVE); NITRITE,URINE NEGATIVE (NEGATIVE); PROTEIN,URINE DIPSTICK NEGATIVE (NEGATIVE); URINE UROBILINOGEN 0.2 mg/dL (0.2 - 1)
[2019-08-17 14:09] LABS: ALBUMIN 3.5 g/dL (3.5-5.0); ALBUMIN/GLOBULIN RATIO 1.1 (0.8-2.0); ANION GAP 16.7 mmol/L (8-16); CALCIUM 10.9 mg/dL (8.4-10.2); CREATININE, SERUM 1.39 mg/dL (0.57-1.11); POTASSIUM 3.7 mmol/L (3.5-5.1)
--- NOTE | 2019-08-17 14:42 | Diagnostic Imaging Report ---
EXAM: CT Abdomen and Pelvis WITHOUT contrast INDICATION: Dysuria. Left back pain that radiates to the left lower quadrant. COMPARISON: None. TECHNIQUE: Abdomen and pelvis were scanned utilizing a multidetector helical scanner from the lung base to the pubic symphysis without administration of IV contrast. Absence of intravenous contrast decreases sensitivity for detection of focal lesions and vascular pathology. Coronal and sagittal reformations were obtained. Routine protocol was performed. IV CONTRAST: None. ORAL CONTRAST: Water RADIATION DOSE: Total DLP: 271.74 mGy*cm Estimated effective dose: (DLP x 0.015 x size factor) mSv COMPLICATIONS: None FINDINGS: LINES and TUBES: None. LOWER THORAX: There is bibasilar atelectasis. Small hiatal hernia. HEPATOBILIARY: No focal hepatic lesions. Common bile duct is dilated up to 1.3 cm in diameter in the susie hepatis region. GALLBLADDER: There are cholecystectomy clips. SPLEEN: No splenomegaly. PANCREAS: No focal masses or ductal dilatation. ADRENALS: No adrenal nodules KIDNEYS/URETERS: Status post right nephrectomy, with significant stranding in the nephrectomy bed. No hydronephrosis or definite mass in the left kidney. Punctate nonobstructing calculus in the upper pole and lower interpolar region of the left kidney on coronal image 52. GI TRACT: No abnormal distention, wall thickening, or evidence of bowel obstruction. Appendix is nonvisualized. PELVIC ORGANS/BLADDER: The uterus is absent. LYMPH NODES: No lymphadenopathy. VESSELS: There is severe atherosclerotic disease in the aorta and major arterial branches. PERITONEUM / RETROPERITONEUM: No free air or fluid. 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 Status post ORIF of the left femoral neck with threaded screws which appear intact. SOFT TISSUES: Bilateral coarse subcutaneous calcifications in the lower flank and upper gluteal regions. IMPRESSION: 1. No acute abdominal pelvic abnormality. 2. Two punctate nonobstructing left renal calculi. No obstructive uropathy. 3. Status post right nephrectomy. 4. Moderate dilatation of the common bile duct likely reservoir effect status post cholecystectomy. Signed by: Dr. Doris Puente M.D. on 08/17/2019 2:39 PM
[2019-08-17 15:18] LABS: BACTERIA,URINE MODERATE /HPF
[2019-08-17 15:19] LABS: EPITHELIAL CELLS,URINE MODERATE /LPF
== END 2019-08-17 16:56 | disposition home or self-care (01) ==
LOC: ER 12:50
DX: M54.5 Low back pain (principal); R10.32 Left lower quadrant pain; R11.0 Nausea; N10 Acute pyelonephritis; N12 Tubulo-interstitial nephritis, not specified as acute or chronic; I10 Essential (primary) hypertension; E78.5 Hyperlipidemia, unspecified; E03.9 Hypothyroidism, unspecified; K21.9 Gastro-esophageal reflux disease without esophagitis; Z85.528 Personal history of other malignant neoplasm of kidney
CPT/HCPCS: 36415; 74176; 80053; 81001; 85025; 87086; 99284; J0696; J2270; J2405; J7030

== ENCOUNTER 2019-11-17 08:34 | Observation (INO) | payer MEDICARE ==
[~2019-11-17] VITALS: Ht 160 cm; Wt 57.3 kg
[2019-11-17] MEDS ORDERED: IBUPROFEN 400 MG TAB PO ONE (09:30)
[2019-11-17] MEDS ORDERED: TRAMADOL/APAP 37.5MG-325MG TAB PO ONE (09:30)
[2019-11-17] MEDS: ONDANSETRON HCL INJ 2MG/ML 2ML 2 MG/ML VIAL IV PRN ×2 (09:45→10:54)
--- NOTE | 2019-11-17 10:00 | Diagnostic Imaging Report ---
EXAMINATION: CHEST 2 VIEWS INDICATION: Left chest pain. COMPARISON: 03/27/16 FINDINGS: TUBES and LINES: None. LUNGS: Lungs are mildly hyperinflated. Lungs are clear. There is no evidence of pneumonia or pulmonary edema. PLEURA: No pleural effusion or pneumothorax. Biapical pleural-parenchymal scarring. HEART AND MEDIASTINUM: The cardiomediastinal silhouette is unremarkable. There are atherosclerotic calcifications within the aorta. BONES AND SOFT TISSUES: No acute osseous lesion. Soft tissues are unremarkable. UPPER ABDOMEN: No free air under the diaphragm. Surgical clips projected on the right upper quadrant. IMPRESSION: No acute thoracic abnormality. Signed by: Dr. Doris Puente M.D. on 11/17/2019 9:58 AM
[2019-11-17] MEDS ORDERED: SODIUM CHLORIDE 0.9% 500ML 500 ML IV STA (10:17)
[2019-11-17] MEDS ORDERED: ONDANSETRON HCL INJ 2MG/ML 2ML 2 MG/ML VIAL IV STA (10:17)
--- NOTE | 2019-11-17 10:17 | NUR ---
PATIENT HAVING MIDSTERNAL CHEST PAIN RADIATING TO BACK. DENIES ANY SHORTNESS OF BREATH OR N/V. DR. GRANDA AT BEDSIDE
[2019-11-17] MEDS ORDERED: NITROGLYCERIN 2% OINT 1 GM PKT TOP ONE (10:30)
[2019-11-17] MEDS ORDERED: FAMOTIDINE 20 MG/2 ML VIAL IV ONE (10:30)
[2019-11-17] MEDS ORDERED: ASPIRIN 81 MG CHEW TAB PO ONE (10:30)
[2019-11-17 10:38] LABS: BASOPHILS % 0.3 % (0.0-1.0); EOSINOPHILS % 0.1 % (0.0-6.0); HEMATOCRIT 44.1 % (34.2-44.1); HEMOGLOBIN 14.3 g/dL (12.0-16.0); LYMPHOCYTES # (AUTO) 2.5 (1.0-3.2); LYMPHOCYTES % 18.6 % (18.0-39.1); MEAN CORPUSCULAR HGB CONC 32.4 g/dL (31-35); MEAN CORPUSCULAR VOLUME 92.6 fL (81-99); MONOCYTES # (AUTO) 1.1 (0.2-0.8); MONOCYTES % 7.9 % (4.4-11.3); NEUTROPHILS # (AUTO) 9.6 (2.1-6.9); NEUTROPHILS % 72.5 % (38.7-80.0); PLATELET COUNT 354 x10e3/uL (140-360); RED BLOOD COUNT 4.76 x10e6/uL (3.6-5.1); RED CELL DISTRIBUTION WIDTH 13.9 % (11.7-14.4)
[2019-11-17 10:58] LABS: ALANINE AMINOTRANSFERASE 23 IU/L (0-55); ALBUMIN 3.4 g/dL (3.5-5.0); ALBUMIN/GLOBULIN RATIO 1.2 (0.8-2.0); ALKALINE PHOSPHATASE 74 IU/L (40-150); ANION GAP 15.2 mmol/L (8-16); BLOOD UREA NITROGEN 24 mg/dL (7-26); BUN/CREATININE RATIO 19 (6-25); CALCIUM 10.3 mg/dL (8.4-10.2); CARBON DIOXIDE 27 mmol/L (22-29); CHLORIDE 104 mmol/L (98-107); CREATINE KINASE 38 IU/L (29-168); CREATININE, SERUM 1.26 mg/dL (0.57-1.11); EST GLOMERULAR FILTRATION RATE 41 ML/MIN (60-); GLUCOSE 83 mg/dL (74-118); MAGNESIUM 2.1 MG/DL (1.3-2.1); POTASSIUM 4.2 mmol/L (3.5-5.1); SODIUM 142 mmol/L (136-145)
[2019-11-17] MEDS ORDERED: DIPHENHYDRAMINE HCL INJ 50 MG/ML VIAL IV PRN (11:45)
[2019-11-17] MEDS ORDERED: ACETAMINOPHEN 325 MG TAB PO PRN (11:45)
[2019-11-17] MEDS ORDERED: HYDRALAZINE HCL 20 MG/ML VIAL IV PRN (11:45)
[2019-11-17] MEDS ORDERED: CLONIDINE HCL 0.1 MG TAB PO PRN (11:45)
[2019-11-17] MEDS ORDERED: ONDANSETRON HCL INJ 2MG/ML 2ML 2 MG/ML VIAL IV PRN (11:45)
[2019-11-17] MEDS ORDERED: ZOLPIDEM TARTRATE 5 MG TAB PO PRN (11:45)
[2019-11-17] MEDS ORDERED: ENOXAPARIN SOD INJ 60 MG/0.6 ML SYR SC ONE (12:00)
[2019-11-17] MEDS: NITROGLYCERIN 2% OINT 1 GM PKT TOP SCH ×3 (12:00→23:33)
[2019-11-17] MEDS: METOPROLOL TARTRATE 25 MG TAB PO SCH ×2 (12:26→23:32)
[2019-11-17] MEDS: FAMOTIDINE 20 MG/2 ML VIAL IV SCH ×2 (12:26→23:32)
--- NOTE | 2019-11-17 12:49 | NUR ---
PURIFICATION DIRECTOR AT BEDSIDE
--- NOTE | 2019-11-17 13:40 | NUR ---
Received patient from ER via stretcher. Accompanied by . AAOX4 to time, person, place, situation. Respirations even and unlabored. Denies chest pain. Rates it 0/10. Tele box #[id number] SR [id number]. Oriented patient and to room. Instructed to use call light for assistance. Voiced understanding.
[2019-11-17 14:00] VITALS: BP 170/70
[2019-11-17] MEDS ORDERED: CEPHALEXIN500 MG PO (14:57)
[2019-11-17] MEDS ORDERED: OYST-CAL-D 500MG TABLET PO SCH (15:00)
[2019-11-17 16:24] VITALS: BP 169/72
[2019-11-17 18:06] LABS: CREATINE KINASE MB 1.8 ng/mL (0-5.0)
--- NOTE | 2019-11-17 19:00 | NUR ---
RECEIVED REPORT FROM PREVIOUS NURSE. CALL LIGHT WITHIN REACH. PATIENT IN BED. PATIENT IS A&O X3 AND AMBULATES. AT THE BEDSIDE
--- NOTE | 2019-11-17 19:03 | NUR ---
Report given to oncoming nurse of patient's status. Resting in bed. AAOX4 to time, person, place, situation. Respirations even and unlabored. Side rails upx2, call light within reach, at bedside.
[2019-11-17 19:55] VITALS: BP 169/72
[2019-11-17 20:00] VITALS: BP 109/62
[2019-11-17 20:13] LABS: CREATINE KINASE 33 IU/L (29-168)
[2019-11-17 20:23] VITALS: BP 109/62
[2019-11-17] MEDS ORDERED: SIMVASTATIN 40 MG TAB PO SCH (21:00)
[2019-11-17] MEDS ORDERED: ASPIRIN 81 MG CHEW TAB PO SCH (21:00)
[2019-11-17] MEDS ORDERED: SIMVASTATIN 20 MG TAB PO SCH (21:00)
[2019-11-17] MEDS: CEPHALEXIN 500 MG CAP PO SCH (21:07)
[2019-11-18] VITALS: BP 127/62
[2019-11-18 03:47] LABS: CREATINE KINASE 26 IU/L (29-168)
[2019-11-18 04:00] VITALS: BP 146/69
[2019-11-18] MEDS: NITROGLYCERIN 2% OINT 1 GM PKT TOP SCH ×2 (05:33→11:35)
[2019-11-18] MEDS ORDERED: LIOTHYRONINE SODIUM 5 MCG TAB PO SCH (06:00)
[2019-11-18] MEDS ORDERED: LEVOTHYROXINE SODIUM 75 MCG TAB PO SCH (06:00)
[2019-11-18 06:30] LABS: CHOL/HDL RATIO 3.3 (3.0-3.6)
--- NOTE | 2019-11-18 07:02 | NUR ---
GAVE BEDSIDE SHIFT REPORT TO ONCOMING NURSE. CALL LIGHT WITHIN REACH. PATIENT IN BED. PATIENT IS A&OX3 AND AMBULATES WITH ASSIST
[2019-11-18 07:13] VITALS: BP 117/67
[2019-11-18 07:15] VITALS: BP 117/67
[2019-11-18] MEDS: CEPHALEXIN 500 MG CAP PO SCH (07:59)
[2019-11-18] MEDS ORDERED: CLOPIDOGREL BISULFATE 75 MG TAB PO SCH (09:00)
[2019-11-18] MEDS ORDERED: AMLODIPINE BESYLATE 5 MG TAB PO SCH (09:00)
[2019-11-18] MEDS ORDERED: OYST-CAL-D 500MG TABLET PO SCH (09:00)
[2019-11-18] MEDS ORDERED: ASPIRIN 325 MG TAB EC PO SCH (09:00)
[2019-11-18 11:16] VITALS: BP 138/60
[2019-11-18] MEDS: FAMOTIDINE 20 MG/2 ML VIAL IV SCH (11:35)
[2019-11-18] MEDS: METOPROLOL TARTRATE 25 MG TAB PO SCH (11:36)
[2019-11-18] MEDS ORDERED: ONDANSETRON HCL 4 MG ORAL DISINTEGRATING TAB PO PRN (13:30)
--- NOTE | 2019-11-18 13:30 | NUR ---
Nutrition Screen Note RD Recommendation for Physician: -Continue current diet per MD. Plan of Care: RD following, monitoring for tolerance and adequacy. Education provided. Nutrition reason for involvement: (MST -3 ) Primary Diagnose(s): HTN, unstable angina PMH: Past Medical History Hypertension Hypothyroidism Cancer Kidney Stones GERD Hyperlipedemia Ht: 63 in Wt: 126 lb BMI: 22.4 kg/m2 IBW: [address] Assessment: (11/18): 79 YOF admitted for HTN with PMH listed above. The pt was seen resting with at bedside. The pt reported that she has poor intake and some weight loss awhile ago but not recently. She stated she went from 130 lbs to 125 lbs in the past. She denied N/V/C/D/chewing or swallowing issues as well was any food allergies. Pt reports takes fiber supplements at home, she requested education on high fiber foods she can consume, gave handout and education to the pt. She verbalized understanding and had no more questions or concerns Chart reviewed. Labs and meds reviewed. Pt has been completing 100% of her meals. Will continue to monitor. Current Diet: cardiac Malnutrition Evaluation 11/18 The patient does not meet criteria for a specified degree of malnutrition at this time. Will re-evaluate at follow-up as appropriate. Diet Education Needs Assessment: Diet education indicated, pt accepted. Diet Adequacy: (Meeting calorie needs, Meeting protein needs Learner(s): pt Barriers: none Cultural/Language Modifications: none Readiness: acceptance Method: discussion, handout Topics: High fiber foods Understanding/Compliance: verbalized understanding. Anticipate good compliance Nutrition Care Level: low Signed: Naomi Zepeda RD, LD
--- NOTE | 2019-11-18 14:00 | NUR ---
Left AC IV discontinued. No signs of infiltration noted. 2x2 gauze and tape placed. Taken via wheelchair by PCT to personal car. Accompanied by . AAOX4 to time, person, place, situation. Respirations even and unlabored. Denies pain. Discharge instructions, rx, and all personal belongings taken with patient.
[2019-11-18] MEDS ORDERED: BENADRYL25 M1 PO (14:45)
[2019-11-18] MEDS ORDERED: IBUPROFEN200 MG PO (14:45)
[2019-11-18] MEDS ORDERED: TRAMADOL PO (14:46)
[2019-11-18] MEDS ORDERED: ACETAMINOPHEN PO (14:46)
[2019-11-18 15:07] VITALS: BP 146/65
[2019-11-18] MEDS ORDERED: FAMOTIDINE 20 MG TAB PO SCH (21:00)
--- NOTE | 2019-11-18 23:24 | Consultation ---
DATE OF CONSULTATION: 11/18/2019 Cardiology Consultation Note REASON FOR CONSULTATION: Chest pain. CHIEF COMPLAINT: Chest pain and back pain. HISTORY OF PRESENT ILLNESS: The patient is a 79-year-old female with history of peripheral arterial disease, status post peripheral interventions in the past, who presents with the episode of chest pain and elevated blood pressure, that she was taking her medications yesterday, was not feeling well at home. She noted her blood pressure was very elevated at 191/86. She felt some pain in her chest with this high blood pressure and was concerned and came to the ER for further evaluation. Once her high blood pressure was treated, she felt better immediately and wanted to go home. However, right before discharge from the ER, developed nausea, vomiting, and back pain, so she was kept overnight for observation. Currently, she says she is feeling back to her normal self. Denies any symptoms at all. No chest pain or shortness of breath. Most recently in the office last year and had a normal cardiac workup per the patient. PAST MEDICAL HISTORY: 1. Hypertension. 2. Hyperlipidemia. 3. PAD. SOCIAL HISTORY: The patient is a former smoker. Does not use drugs or alcohol. FAMILY HISTORY: Noncontributory. REVIEW OF SYSTEMS: Per HPI, otherwise negative. OUTPATIENT MEDICATIONS: Reviewed. ALLERGIES: THE PATIENT HAS A LONG LIST OF ALLERGIES. PLEASE SEE MAR FOR DETAILS. PHYSICAL EXAMINATION: VITAL SIGNS: Temperature afebrile, pulse 63, respiratory rate 19, blood pressure 138/60, saturating 96% on room air. GENERAL: Elderly female, thin, well-developed, well-nourished. CARDIOVASCULAR: Regular rate and rhythm. No murmurs, rubs, or gallops. LUNGS: Clear to auscultation bilaterally. ABDOMEN: Soft, nontender, and nondistended. PSYCH: Alert and oriented to person, place, and time. Normal affect. EXTREMITIES: Warm and well perfused. No ulcerations or edema. INPATIENT MEDICATIONS: Reviewed. LABORATORY DATA: Reviewed. TELEMETRY DATA: Reviewed, shows normal sinus rhythm. EKG reviewed, shows normal sinus rhythm. Her EKG is just concerning for ischemia. Echocardiogram reviewed, shows normal LV function. ASSESSMENT: 1. Chest pain in setting of hypertension. 2. Hypertensive urgency. PLAN: Blood pressure is now better controlled. Continue current medication regimen. Continue aspirin and Plavix. Increase amlodipine to 10 as an outpatient. Follow up in clinic in one week post discharge. Ruled out for acute AK with serial troponins. No further workup needed currently as an inpatient. Can get a stress test as an outpatient as needed. Thank you for this consult. We will continue to follow. MD WALLACE Negrete/MICHELLE /[id number]
== END 2019-11-18 15:22 | disposition home or self-care (01) ==
LOC: ER 08:34 → ERHOLD 11:41 → MED/SURG3 13:43
PROVIDERS: ADMIT Internal Medicine; ATTEND Internal Medicine
DX: I16.0 Hypertensive urgency (principal); I12.9 Hypertensive chronic kidney disease with stage 1 through stage 4 chronic kidney disease, or unspecified chronic kidney disease; E78.5 Hyperlipidemia, unspecified; I73.9 Peripheral vascular disease, unspecified; N18.3 Chronic kidney disease, stage 3 (moderate); E03.9 Hypothyroidism, unspecified
CPT/HCPCS: 36415 ×2; 71046; 80053; 80061; 82550 ×2; 82553 ×2; 83735; 83880; 84484 ×2; 85025; 85379; 93005; 93306; 99284; G0378 ×2; J0360; J2405; J7040

== ENCOUNTER 2020-03-17 14:56 | Observation (INO) | payer MEDICARE, OTHER ==
[~2020-03-17] VITALS: Ht 160 cm; Wt 58.7 kg
[~2020-03-17 14:56] MED LIST changes: +ACETAMINOPHEN PO; +BENADRYL25 M1 PO; +CEPHALEXIN500 MG PO; +IBUPROFEN200 MG PO; +TRAMADOL PO
[2020-03-17 15:56] LABS: BASOPHILS % 0.3 % (0.0-1.0); EOSINOPHILS # (AUTO) 0.1 (0.0-0.4); EOSINOPHILS % 2.2 % (0.0-6.0); HEMATOCRIT 46.5 % (34.2-44.1); HEMOGLOBIN 14.9 g/dL (12.0-16.0); LYMPHOCYTES # (AUTO) 1.3 (1.0-3.2); MEAN CORPUSCULAR HEMOGLOBIN 30.1 pg (28-32); MEAN CORPUSCULAR VOLUME 93.9 fL (81-99); MONOCYTES % 15.5 % (4.4-11.3); NEUTROPHILS # (AUTO) 3.9 (2.1-6.9); NEUTROPHILS % 61.1 % (38.7-80.0); PLATELET COUNT 272 x10e3/uL (140-360); RED BLOOD COUNT 4.95 x10e6/uL (3.6-5.1); RED CELL DISTRIBUTION WIDTH 12.8 % (11.7-14.4)
[2020-03-17] MEDS ORDERED: CEFEPIME 1GM/NS 0.9% 50 ML 50 ML IV STA (15:57)
[2020-03-17 16:05] LABS: INR 0.85; PARTIAL THROMBOPLASTIN TIME 23.2 seconds (23.8-35.5); PROTHROMBIN TIME 12.1 seconds (11.9-14.5)
[2020-03-17] MEDS ORDERED: SODIUM CHLORIDE 0.9% 1000ML 1,000 ML IV STA (16:14)
[2020-03-17 16:15] LABS: ALBUMIN 3.2 g/dL (3.5-5.0); ANION GAP 16.8 mmol/L (8-16); CALCIUM 8.7 mg/dL (8.4-10.2); CREATININE, SERUM 1.33 mg/dL (0.57-1.11); POTASSIUM 3.8 mmol/L (3.5-5.1)
[2020-03-17 16:21] LABS: CREATINE KINASE MB 1.1 ng/mL (0-5.0)
[2020-03-17 18:00] LABS: CLARITY,URINE CLEAR (CLEAR); COLOR,URINE YELLOW (YELLOW); LEUKOCYTE ESTERASE ,URINE NEGATIVE (NEGATIVE); NITRITE,URINE NEGATIVE (NEGATIVE); PROTEIN,URINE DIPSTICK NEGATIVE (NEGATIVE)
[2020-03-17 18:01] LABS: BILIRUBIN,URINE NEGATIVE (NEGATIVE); KETONES,URINE NEGATIVE (NEGATIVE); URINE UROBILINOGEN 0.2 mg/dL (0.2 - 1)
--- NOTE | 2020-03-17 18:11 | Diagnostic Imaging Report ---
Examination: Single AP view of the chest. COMPARISON: Chest two views 11/17/2019 INDICATION: Weakness and sepsis IMPRESSION: Exam limited by patient rotation. 1. Lines and Tubes: None 2. Lungs are grossly clear. No consolidation or effusion. 3. Cardiomediastinal silhouette is normal. Pulmonary vasculature is normal. Atherosclerotic calcification of the aortic arch. 4. No acute bony abnormalities. Signed by: Dr. Osmin eRgalado M.D. on 03/17/2020 6:08 PM
[2020-03-17 21:27] VITALS: BP 174/70
--- NOTE | 2020-03-17 21:47 | NUR ---
RECEIVED PATIENT BY WHEELCHAIR. PT IS AAOX3, RR EVEN AND NON-LABORED, ON ROOM AIR. NO S/SX OF DISTRESS NOTED. PT AMBULATED FROM WHEELCHAIR TO HOSPITAL BED WITH MINIMAL ASSIST. ORIENTED PT TO ROOM, CALL LIGHT, BED CONTROLS AND LIGHTS. LEFT PT LAYING SEMI FOWLERS IN BED, BED IN LOW LOCKED POSITION, SIDE RAILS UPX2, CALL LIGHT AND PHONE WITHIN REACH.
--- NOTE | 2020-03-17 22:23 | NUR ---
NOTIFIED BUSINESS DEAN FOR COVID TEST TO BE PERFORMED.
[2020-03-17] MEDS ORDERED: TUMS300 MG PO (22:28)
[2020-03-17 22:43] VITALS: BP 174/70
[2020-03-17 22:47] VITALS: BP 174/70
[2020-03-18] VITALS (8 sets, daily range): BP systolic 138–165; BP diastolic 72–77
[2020-03-18 03:50] LABS: BASOPHILS % 0.3 % (0.0-1.0); HEMATOCRIT 42.2 % (34.2-44.1); HEMOGLOBIN 13.4 g/dL (12.0-16.0); LYMPHOCYTES # (AUTO) 1.3 (1.0-3.2); LYMPHOCYTES % 20.9 % (18.0-39.1); MEAN CORPUSCULAR HEMOGLOBIN 30.2 pg (28-32); MEAN CORPUSCULAR HGB CONC 31.8 g/dL (31-35); MEAN CORPUSCULAR VOLUME 95.3 fL (81-99); MONOCYTES # (AUTO) 0.9 (0.2-0.8); MONOCYTES % 15.1 % (4.4-11.3); NEUTROPHILS # (AUTO) 3.9 (2.1-6.9); NEUTROPHILS % 63.1 % (38.7-80.0); PLATELET COUNT 214 x10e3/uL (140-360); RED BLOOD COUNT 4.43 x10e6/uL (3.6-5.1); RED CELL DISTRIBUTION WIDTH 12.7 % (11.7-14.4)
[2020-03-18 04:11] LABS: ALBUMIN 2.7 g/dL (3.5-5.0); ANION GAP 13.6 mmol/L (8-16); CALCIUM 8.1 mg/dL (8.4-10.2); CREATININE, SERUM 1.18 mg/dL (0.57-1.11)
[2020-03-18 04:16] LABS: POTASSIUM 4.6 mmol/L (3.5-5.1)
--- NOTE | 2020-03-18 06:10 | NUR ---
CONSULTATION CALLED TO MD KEN [facility]. WAITING FOR CALLBACK.
[2020-03-18] MEDS ORDERED: SODIUM CHLORIDE 0.9% 250ML 250 ML ONE (06:27)
[2020-03-18] MEDS: LIOTHYRONINE SODIUM 5 MCG TAB PO SCH (06:30)
[2020-03-18] MEDS: CEFEPIME 1GM/NS 0.9% 50 ML 50 ML IV SCH ×2 (06:30→19:30)
[2020-03-18] MEDS: LEVOTHYROXINE SODIUM 100 MCG TAB PO SCH (06:30)
--- NOTE | 2020-03-18 07:00 | NUR ---
RECEIVED PATIENT AWAKE RESTING IN BED NO S/S OF DISTRESS. BED LOW, WHEELS LOCKED, SIDE RAILS X2. CALL LIGHT IN REACH WILL CONTINUE TO MONITOR PATIENT.
[2020-03-18] MEDS ORDERED: LEVOTHYROXINE SODIUM 75 MCG TAB PO SCH (09:00)
[2020-03-18] MEDS: CLOPIDOGREL BISULFATE 75 MG TAB PO SCH (09:09)
[2020-03-18] MEDS: OYST-CAL-D 500MG TABLET PO SCH ×2 (09:09→16:32)
[2020-03-18] MEDS: AMLODIPINE BESYLATE 5 MG TAB PO SCH (09:09)
--- NOTE | 2020-03-18 10:16 | Diagnostic Imaging Report ---
TECHNIQUE: 3 views of the left foot HISTORY: ^BIG TOE PAIN ^[id number] ^[id number]. COMPARISON: None. IMPRESSION: No acute displaced fracture or dislocation. Mild scattered joint space narrowing, most prominent at the interphalangeal joints. Vascular calcifications. Plantar enthesopathy at the calcaneus. Signed by: Yasmani Yu MD on 03/18/2020 10:13 AM
--- NOTE | 2020-03-18 19:30 | NUR ---
BEDSIDE SHIFT REPORT RECEIVED FROM DAY RN. PT IS ALERT AND ORIENTED X3. RESPIRATIONS ARE EVEN AND UNLABORED. IV RESTARTED IN RT FOREARM WITH 24 G- GOOD BLOOD RETURN. IV IN LEFT HAND D/C WITH CATHETER INTACT. NO SIGN BLEEDING. PT ON PLAVIX AND ASA. PRESSURE DRESSING TO SITE. PT DENIES WEAKNESS AT THIS TIME. CALL LIGHT WITHIN REACH. BED LOCKED AND IN LOW POSITION.
--- NOTE | 2020-03-18 19:56 | Consultation ---
DATE OF CONSULTATION: 03/18/[address] Toan Rutherford. Thank you for letting me to participate in the care of this patient. HISTORY OF PRESENT ILLNESS: The patient was seen at bedside. She came into the hospital because she is having a lot of pain to the right foot. She points to the medial aspect of the foot. She says she developed a wound on the right and the left one on the left heel, but one on the right has not changed and the pain is increasing. PAST MEDICAL HISTORY: Hypertension. PAST SURGICAL HISTORY: Not relevant. FAMILY HISTORY: Hypertension. SOCIAL HISTORY: Denies alcohol or illicit drug use. ALLERGIES: GOING TO BE CODEINE, LEVATOL, LEVAQUIN, PROMETHAZINE, BACTRIM, AND CIPROFLOXACIN. REVIEW OF SYSTEMS: Noncontributory to this consult except for pain to the right lower extremity. PHYSICAL EXAMINATION: LOWER EXTREMITIES: Pedal pulses palpable. Diminished capillary filling time is delayed. Skin is thin, shiny, and atrophic. There is an ulcer at the right aspect of the foot medially, measures about 1 cm x 0.2 mm. It is granular at the base. She has painful to the area. No streaking erythema. No ascending lymphangitis. Intrinsic minus type of foot. Muscle mass is symmetrical. LABORATORY DATA: X-ray is negative for osteomyelitis for the right foot, three views. White blood count is 6.17. normal limits. ASSESSMENT: 1. Ulcer, right medial foot. 2. Peripheral vascular disease. PLAN: Discussed treatment with the patient. At this point, my recommendation is going to be to the Bactroban b.i.d. I suspect some of the pain is coming from the vascularity to the lower extremity. I have ordered noninvasive vascular studies. If they are abnormal, my recommendation is going to be to consult Interventional Cardiology. A postop shoe was dispensed. We will continue to follow. Thank you for letting me to participate in the care of this patient. ADDIE Monk/MODL /[id number]
[2020-03-18] MEDS: ASPIRIN 81 MG CHEW TAB PO SCH (20:55)
[2020-03-18] MEDS: SIMVASTATIN 20 MG TAB PO SCH (20:55)
--- NOTE | 2020-03-18 21:30 | NUR ---
PT CALLED RN LEFT HAND IV SITE BLEEDING. NEW PRESSURE DRESSING TO AREA. BLEEDING STOP WHEN PRESSURE TO SITE. PT C/O OF FEELING CONSTIPATED. PT C/O OF ROOM BEING HOT. TEMP IN ROOM TURNED DOWN WILL REPORT ROOM TO MAINTANCE IN AM. FAN NOW IN ROOM. PT UP TO BATHROOM AND HAD LARGE FORMED STOOL. PT VOIDING WITHOUT DIFFICULTY. DR VEGA NOTIFIED BEFORE PT HAD BM- NEW ORDERS RECEIVED.
[2020-03-19] VITALS (10 sets, daily range): BP systolic 124–161; BP diastolic 65–86
[2020-03-19] MEDS ORDERED: ONDANSETRON HCL 4 MG ORAL DISINTEGRATING TAB PO PRN (01:00)
[2020-03-19] MEDS ORDERED: BISACODYL 5 MG TAB EC PO ONE (01:00)
[2020-03-19] MEDS: LEVOTHYROXINE SODIUM 100 MCG TAB PO SCH (05:46)
[2020-03-19 06:07] LABS: BASOPHILS % 0.3 % (0.0-1.0); HEMATOCRIT 41.1 % (34.2-44.1); HEMOGLOBIN 13.2 g/dL (12.0-16.0); LYMPHOCYTES # (AUTO) 0.9 (1.0-3.2); LYMPHOCYTES % 14.5 % (18.0-39.1); MEAN CORPUSCULAR HEMOGLOBIN 30.3 pg (28-32); MEAN CORPUSCULAR HGB CONC 32.1 g/dL (31-35); MEAN CORPUSCULAR VOLUME 94.3 fL (81-99); MONOCYTES # (AUTO) 0.6 (0.2-0.8); MONOCYTES % 10.1 % (4.4-11.3); NEUTROPHILS # (AUTO) 4.7 (2.1-6.9); NEUTROPHILS % 74.6 % (38.7-80.0); PLATELET COUNT 219 x10e3/uL (140-360); RED BLOOD COUNT 4.36 x10e6/uL (3.6-5.1); RED CELL DISTRIBUTION WIDTH 12.7 % (11.7-14.4)
[2020-03-19 06:40] LABS: ALBUMIN 2.7 g/dL (3.5-5.0); ALBUMIN/GLOBULIN RATIO 0.9 (0.8-2.0); ANION GAP 14.2 mmol/L (8-16); CALCIUM 8.2 mg/dL (8.4-10.2); CREATININE, SERUM 0.93 mg/dL (0.57-1.11); MAGNESIUM 1.9 MG/DL (1.3-2.1); POTASSIUM 4.2 mmol/L (3.5-5.1)
--- NOTE | 2020-03-19 07:00 | NUR ---
RECEIVED PATIENT AWAKE RESTING IN BED NO S/S OF DISTRESS. BED LOW, WHEELS LOCKED, SIDE RAILS X2. CALL LIGHT IN REACH WILL CONTINUE TO MONITOR PATIENT.
[2020-03-19] MEDS ORDERED: SODIUM CHLORIDE 0.9% 100 ML ONE (09:32)
[2020-03-19] MEDS ORDERED: IOPAMIDOL 370 MG/ML 200 ML INFUS..BTL INJ ONE (09:32)
[2020-03-19] MEDS: AMLODIPINE BESYLATE 5 MG TAB PO SCH (10:53)
[2020-03-19] MEDS: OYST-CAL-D 500MG TABLET PO SCH ×2 (10:53→16:42)
[2020-03-19] MEDS: CLOPIDOGREL BISULFATE 75 MG TAB PO SCH (10:53)
[2020-03-19] MEDS: LIOTHYRONINE SODIUM 5 MCG TAB PO SCH (10:53)
--- NOTE | 2020-03-19 15:59 | Diagnostic Imaging Report ---
Pelvis CTA with RUNOFF PROTOCOL WITH IV CONTRAST. INDICATION: Peripheral artery disease COMPARISON: Lower extremity arterial ultrasound 03/18/2020 TECHNIQUE: The pelvis and lower extremities were scanned utilizing a multidetector helical scanner from the aortic bifurcation to the toes after administration of IV contrast. Coronal and sagittal reformations were obtained. 3D post-processing of the images was performed, and the post-processed images were used in interpretation. CTA runoff protocol was performed. IV CONTRAST: 100mL of Isovue 370 ORAL CONTRAST: None RADIATION DOSE: Total DLP: 417 mGy*cm FINDINGS: VESSELS: There are moderate calcified and noncalcified atherosclerotic plaques in the distal aorta. There is no evidence of a flap within the aorta to suggest a dissection. Right lower extremity: The right common iliac arteries widely patent. The external and internal iliac arteries are widely patent. Mild atherosclerotic calcification at the common femoral artery with mild associated luminal narrowing. Mild atherosclerotic calcifications of the superficial femoral artery with mild associated luminal narrowing. Moderate atherosclerotic calcifications of the distal right popliteal artery with at least moderate luminal narrowing. There appears to be total occlusion at the tibial peroneal trunk with distal reconstitution of the posterior tibial artery at the level of the ankle. The peroneal artery appears occluded. Multifocal atherosclerotic calcifications of the anterior tibial artery with areas of moderate luminal narrowing. Two-vessel runoff to the ankle via the anterior and posterior tibial arteries. Left lower extremity: The left common iliac arteries widely patent. The left internal No iliac arteries are widely patent. The left common femoral artery and left SFA demonstrates mild atherosclerotic calcifications. Mild multifocal luminal narrowing of the mid SFA. The distal SFA is widely patent. Moderate athetotic calcifications of the left popliteal artery results in multifocal moderate luminal narrowing. Moderate athetotic calcifications of the anterior tibial artery and tibioperoneal trunk. The peroneal artery is diminutive. Two-vessel runoff to the ankle via the anterior and posterior tibial arteries. NON-VASCULAR: PELVIC ORGANS/BLADDER: Decompressed bladder. PERITONEUM / RETROPERITONEUM: No free air or fluid. LYMPH NODES: No lymphadenopathy. GI TRACT: No distention or wall thickening. BONES AND SOFT TISSUES: No acute osseous injury. ORIF hardware of the left proximal femur. Bilateral gluteal injection granulomas. IMPRESSION: Occlusion of the right tibioperoneal trunk with distal reconstitution of the posterior tibial artery at the level of the ankle. Two vessel runoff on the right via the posterior and anterior tibial arteries. Moderate luminal narrowing at the right and left popliteal arteries. Two vessel runoff to the ankle on the left via the anterior and posterior tibial arteries. Signed by: Bin Aguilar MD on 03/19/2020 3:56 PM
--- NOTE | 2020-03-19 19:20 | NUR ---
BEDSIDE SHIFT REPORT GIVEN BY DAY RN. PT IS ALERT AND ORIENTED X3. RESPIRATIONS ARE EVEN AD UNLABORED. PT DENIES PAIN. DRY NONPRODUCTIVE COUGH PRESENT. PT REMAINS ON RA. NO RESPIRATORY DISTRESS NOTED.PT VOIDING WITHOUT DIFFICULTY. PT HAS BEEN HAVING LOOSE STOOLS THIS AFTERNOON.20 G SL IN RT FOREARM. 24 G SL IN RT FOREARM. CALL LIGHT WITHIN REACH. BED LOCKED AND IN LOW POSITION.
--- NOTE | 2020-03-19 20:34 | NUR ---
DR VEGA INFORMED PT COVID +. nEW ORDERS RECEIVED TO TRANSFER TO COVID UNIT AND CONSULT DR RANGEL. PT NOTIFIED OF POSITIVE TEST RESULTS. PT REPORTS HER SON LIVES WITH HER AND HER . WILL TRANSFER TO COVID UNIT ORDERED.
--- NOTE | 2020-03-19 20:36 | Consultation ---
DATE OF CONSULTATION: Cardiology Consultation REASON FOR CONSULTATION: Peripheral arterial disease. HISTORY OF PRESENT ILLNESS: This is a 79-year-old woman with a history of peripheral arterial disease, status post multiple interventions, hypertension, and hyperlipidemia, who presented with a left toe foot wound and a right ulcer on the medial foot. REVIEW OF SYSTEMS: A 12-point review of system was conducted, is negative except as stated above in the HPI. PAST MEDICAL HISTORY: As stated above in the HPI. PAST SURGICAL HISTORY: Peripheral intervention. PAST FAMILY HISTORY: Noncontributory to current illness.. ALLERGIES: MULTIPLE, SEE MED CHART. SOCIAL HISTORY: No illicit drug, alcohol, or tobacco use. MEDICATIONS: See medications reconciliation form. PHYSICAL EXAMINATION: VITAL SIGNS: Temperature is 98.5, heart rate 71, respirations are 20, blood pressure is 148/86, oxygen saturation 97% on room air. GENERAL: Well appearing, in no apparent distress. CARDIOVASCULAR: Regular rate and rhythm. LUNGS: Clear to auscultation. ABDOMEN: Soft, nontender, nondistended. EXTREMITIES: Diminished pulses. SKIN: Warm, dry and intact. NEUROLOGIC: No focal deficits noted. LABORATORY DATA: Reviewed. Creatinine is 0.93. CT angiogram is pending. IMPRESSION: 1. Diabetic foot wound. 2. Peripheral arterial disease. 3. Hypertension. 4. Hyperlipidemia. RECOMMENDATIONS: I will await results of the CT angiogram. The patient possibly will need further intervention. Continue current cardiovascular medications, offloading, and antibiotic therapies. DO AMOS Watkins/MODL /[id number]
[2020-03-19] MEDS: SIMVASTATIN 20 MG TAB PO SCH (21:00)
[2020-03-19] MEDS: ASPIRIN 81 MG CHEW TAB PO SCH (21:00)
--- NOTE | 2020-03-19 21:30 | NUR ---
PT TRANSFERRED TO COVID UNIT WITH ALL PT BELONGINGS. VS STABLE. PT REMAINS ON RA- O2 SAT WNL. PERICARE GIVEN FOR DIARRHEA. REPORT BEDSIDE GIVEN TO COVID UNIT RN.
[2020-03-20] VITALS: BP 163/71
[2020-03-20 04:00] VITALS: BP 145/73
[2020-03-20] MEDS: LEVOTHYROXINE SODIUM 100 MCG TAB PO SCH (05:31)
[2020-03-20 05:39] LABS: BASOPHILS % 0.1 % (0.0-1.0); HEMATOCRIT 42.2 % (34.2-44.1); HEMOGLOBIN 13.5 g/dL (12.0-16.0); LYMPHOCYTES # (AUTO) 0.8 (1.0-3.2); LYMPHOCYTES % 11.2 % (18.0-39.1); MEAN CORPUSCULAR HEMOGLOBIN 30.6 pg (28-32); MEAN CORPUSCULAR VOLUME 95.7 fL (81-99); MONOCYTES # (AUTO) 0.8 (0.2-0.8); MONOCYTES % 10.9 % (4.4-11.3); NEUTROPHILS # (AUTO) 5.7 (2.1-6.9); NEUTROPHILS % 77.5 % (38.7-80.0); PLATELET COUNT 228 x10e3/uL (140-360); RED BLOOD COUNT 4.41 x10e6/uL (3.6-5.1); RED CELL DISTRIBUTION WIDTH 12.4 % (11.7-14.4)
[2020-03-20 05:57] LABS: ALBUMIN 2.7 g/dL (3.5-5.0); ALBUMIN/GLOBULIN RATIO 0.9 (0.8-2.0); ANION GAP 10.6 mmol/L (8-16); CALCIUM 8.3 mg/dL (8.4-10.2); CREATININE, SERUM 1.03 mg/dL (0.57-1.11); MAGNESIUM 1.9 MG/DL (1.3-2.1); POTASSIUM 4.6 mmol/L (3.5-5.1)
--- NOTE | 2020-03-20 06:47 | Progress Note ---
DATE: SUBJECTIVE: Unfortunately, the patient's screening COVID test came back positive, so she was then moved over to the appropriate unit, but the patient does not have very many symptoms associated with it. She does complain of some loose stools, but not real significant and denies any shortness of breath, or cough or changes in smell and taste. She states her foot actually feels better. PHYSICAL EXAMINATION: VITAL SIGNS: Temperature 98.4, pulse 79, blood pressure 145/73, sats 98% on room air. GENERAL: She is in no apparent distress, lying in bed. LUNGS: Clear to auscultation bilaterally. NECK: Supple. No lymphadenopathy. CARDIOVASCULAR: Regular rate and rhythm. ABDOMEN: Good bowel sounds. Soft, nontender. EXTREMITIES: No clubbing or cyanosis. Left 5th toe is actually showing improvements with her wound as well as cellulitis. NEUROLOGIC: Nonfocal. ASSESSMENT AND PLAN: 1. Coronavirus disease 2019 positivity. The patient in isolation. We will consult Dr. Rose. The patient is doing very well with very minimal symptoms if any at all. 2. Cellulitis. Continue with current care and monitoring. 3. Peripheral arterial disease. Dr. Espinosa is evaluating the patient. He will review her CT angiogram. 4. Hypertension. Continue with her current medicine. 5. Hypothyroidism. Continue with her medicines. Please see hospital chart for full details. MD FAITH Tracey/MICHELLE /[id number]
[2020-03-20] MEDS: CLOPIDOGREL BISULFATE 75 MG TAB PO SCH (08:43)
[2020-03-20] MEDS: LIOTHYRONINE SODIUM 5 MCG TAB PO SCH (08:43)
[2020-03-20] MEDS: OYST-CAL-D 500MG TABLET PO SCH (08:43)
[2020-03-20] MEDS: AMLODIPINE BESYLATE 5 MG TAB PO SCH (08:43)
--- NOTE | 2020-03-20 08:46 | Diagnostic Imaging Report ---
EXAMINATION: CHEST SINGLE (PORTABLE) INDICATION: Shortness of breath COMPARISON: Chest radiograph of 03/17/2020 FINDINGS: LINES/TUBES:None LUNGS:The lungs are well-inflated. No focal consolidation or pulmonary edema. PLEURA:No pleural effusion or pneumothorax. MEDIASTINUM:The cardiomediastinal silhouette appears normal in size and shape. Atherosclerotic calcifications of the thoracic aorta. BONES/SOFT TISSUES:No acute osseous injury. ABDOMEN:No free air under the diaphragm. IMPRESSION: No focal pneumonia or pulmonary edema. Signed by: Bin Aguilar MD on 03/20/2020 8:42 AM
[2020-03-20 10:23] VITALS: BP 145/73
--- NOTE | 2020-03-20 11:19 | Consultation ---
DATE OF CONSULTATION: Pulmonary Consultation Patient of Dr. Santiago Diaz. HISTORY OF PRESENT ILLNESS: Александр 79-year-old woman, admitted to Dr. Diaz's office with diarrhea, cellulitis, and weakness. She has a history of diabetic foot ulcer, peripheral vascular disease. ALLERGIES: CODEINE AND BACTRIM. HOME MEDICATIONS: 1. Calcium. 2. Norvasc. 3. Aspirin. 4. Plavix. 5. Levoxyl. 6. Liothyronine. 7. Lovastatin. SOCIAL HISTORY: Nonsmoker. 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 PAST SURGICAL HISTORY: She had hysterectomy, T and A, gallbladder surgery, nephrectomy for cancer. She has had multiple surgeries, two on the right, one on the left with peripheral artery bypass surgery. REVIEW OF SYSTEMS: She denies heart disease, but apparently she was admitted with a hypertensive episode and angina in November of this year. She has a history of angioplasty left anterior tibial artery. PHYSICAL EXAMINATION: GENERAL: This is frail white female, in no acute distress. Somewhat poor historian. VITAL SIGNS: Temperature 98.4, and she has been afebrile throughout her hospital course to-date, pulse 80, respirations 18, blood pressure 145/73. HEAD: Normocephalic, atraumatic. O2 saturation on room air 98%. LUNGS: Clear. HEART: Regular rhythm. ABDOMEN: Nontender. EXTREMITIES: Wounds. PLAN: Mobilize the patient as tolerated. Continue observation. No intervention at this time for COVID-19. She is not hypoxic with minimal cough. According to record, she has no allergy to Levaquin, Phenergan, Bactrim, and ciprofloxacin as well as Levatol and codeine. Thank you for this kind referral. MD CHAUNCEY Raphael/MICHELLE /[id number]
[2020-03-20 11:29] VITALS: BP 139/65
--- NOTE | 2020-03-20 12:00 | NUR ---
PATIENT DOING WELL TODAY. ON ROOM AIR, NO COMPLAINTS OF SHORTNESS OF BREATH. WCTM.
--- NOTE | 2020-03-20 12:14 | Progress Note ---
DATE: 03/20/2020 SUBJECTIVE: The patient is here for pain to the lower extremity from claudications. According to her studies, she has two-vessel runoff from the popliteal down. She has some claudication to the popliteal, but she does have two-vessel runoff. She is positive for COVID-19 from the test on admission and she has been moved to the appropriate room. ASSESSMENT: 1. Peripheral vascular disease, moderate. 2. Claudication pain. 3. COVID-19. PLAN: At this point, she might have a CT angiogram from Interventional Cardiology. The preliminary study shows that she does have a two-vessel runoff, so further treatment will be deferred to them. I suspect that some of this pain is from the claudication, but also from the inflammation secondary to the COVID. Continue wound care. Continue following. Covering for Dr. Toan Rutherford. ADDIE Monk/MICHELLE /[id number]
--- NOTE | 2020-03-20 15:51 | NUR ---
DR. BRINDA URIAS DR. FOR PT TO DISCHARGE.
--- NOTE | 2020-03-20 15:52 | NUR ---
PATIENT DISCHARGED. IV ACCESS REMOVED- BLEEDING CONTROLLED AND DRESSING APPLIED. PATIENT GIVEN DISCHARGE INSTRUCTIONS AND DENIED ANY QUESTIONS. PATIENT CLEAR ON FOLLOW UP APPTS NEEDED. PATIENT WHEELED OFF UNIT TO 'S PERSONAL VEHICLE.
[2020-03-20] MEDS ORDERED: ENOXAPARIN SOD INJ 40 MG/0.4 ML SYR SC SCH (17:00)
--- NOTE | 2020-03-20 20:35 | Consultation ---
DATE OF CONSULTATION: REASON FOR CONSULTATION: 1. COVID-19. 2. Ulcer of the leg. HISTORY OF PRESENT ILLNESS: This patient who is a 79-year-old white female with history of hypertension. The patient went to see her physician because she says she was not feeling well. The patient was given a shot of antibiotic, went home. She felt a bit worse. No specific complaints, just not feeling well. There was no fever, no chills, shortness of breath or cough. She also had an ulcer on her right medial foot and she was diagnosed recently with peripheral vascular disease and was supposed to do vascular workup. The patient was admitted to consider possibly workup seeing why she was not feeling well. She came the next day, she was admitted. She states she is feeling quite well. However, her COVID-19 which was done screening came back positive, so I am asked to see her. The patient is currently alert and oriented, has really no complaints whatsoever. Review of systems; 14-point all negative. PAST MEDICAL HISTORY: Hypertension. PAST SURGICAL HISTORY: Denies. ALLERGIES: NKA. SOCIAL HISTORY: There is no smoking, drug abuse, or alcohol abuse. FAMILY HISTORY: Otherwise unremarkable. REVIEW OF SYSTEMS: HEENT: Negative. PULMONARY: Negative. CARDIAC: Negative. : Negative: GI: Negative. SKIN: There is no rash. LABORATORY DATA: White count 7.31, hemoglobin 13. Her COVID-19 was positive. Sodium 140, potassium 4.6; creatinine 1.18 came down to 1.03. IMPRESSION: COVID-19 positive. I think it is upper respiratory colonization. No need for treatment. Continue to self-quarantine for 2 weeks. The patient will be discharged home. Peripheral vascular disease. This could be done workup later. Ulcer healing. Hypertension. Discussed with the patient. Discussed with medical team. Answered all their questions. MD ABBIE Simeon/MICHELLE /[id number]
[2020-03-20] MEDS ORDERED: SIMVASTATIN 40 MG TAB PO SCH (21:00)
--- NOTE | 2020-03-29 09:23 | Discharge Summary ---
DISCHARGE DIAGNOSES: 1. Cellulitis of the left big toe. 2. Coronavirus disease-2019 positive. 3. Hypertension. HISTORY OF PRESENT ILLNESS AND HOSPITAL COURSE: The patient is a lady, who presented with significant pain of her left big toe, who failed outpatient treatment, was noticed to have a left toe cellulitis. So, she has been treated with IV antibiotics. On routine screening, she was noticed to have positive COVID status, so she was transferred to the COVID unit, but she was not hypoxic, not really even very much symptomatic from medications. She states she had a little bit of fever, a little bit of body aches, but she was doing really well. So, she was actually been able to switched over to p.o. antibiotics and discharged home with continued care for COVID at home with supportive care and monitoring. She is instructed to call with any changes or return back to the emergency room from her COVID status and she will follow up with me in about 2 weeks. Please see hospital chart for full details. MD FAITH Tracey/MICHELLE /[id number]
--- NOTE | 2020-05-04 04:49 | Emergency Department Note ---
History of Present Illnes History of Present Illness Chief Complaint: General Medicine Complaints History of Present Illness This is a 79 year old female arrived to the ED with concerns of generalized malaise and weakness, patient states she was congested Dr. Diaz's office and received Rocephin with minimal relief of symptoms. Historian: Patient Arrival Mode: Car Instructional Media Services Technician Required: No Onset (how long ago): day(s) Severity: mild Duration (how long): day(s) Timing of current episode: constant Progression: worsening Chronicity: new Past Medical/Family History Physician Review I have reviewed the patient's past medical and family history. Any updates have been documented here. Past Medical History Recent Fever: No Clinical Suspicion of Infectio: Yes New/Unexplained Change in Ment: No Past Medical History: Hypertension, Hypothyroidism, Cancer, Kidney Stones, GERD, Hyperlipedemia Other Medical History: RIGHT KIDNEY CA OSTEOPOROSIS (L) HIP FRACTURE Past Surgical History: Cholecysctectomy, Appendectomy, Hysterectomy, Cataract Removal Other Surgery: RIGHT KNEE SURGERY-SCRAPING LEFT HIP REPAIR RIGHT NEPHRECTOMY 2015 ABD SCAR TISSUE REVOVAL SURGERY 2012 STENT (R) LEG Social History Smoking Cessation: Never Smoker Counseling Performed: No Alcohol Use: None Any Illegal Drug Use: No TB Exposure/Symptoms: No Physically hurt or threatened: No Family History Family history of heart diseas: Yes Other Last Tetanus: 2017 Any Pre-Existing Lines (PICC,: No Is patient up to date on immun: Yes Last Flu: unknown Last Pneumovax: UTD Review of Systems Review of Systems Constitutional: Reports as per HPI, Reports malaise, Reports weakness EENTM: Reports no symptoms Cardiovascular: Reports no symptoms Respiratory: Reports no symptoms Gastrointestinal: Reports no symptoms Genitourinary: Reports no symptoms Musculoskeletal: Reports no symptoms Integumentary: Reports no symptoms Neurological: Reports no symptoms Psychological: Reports no symptoms Endocrine: Reports no symptoms Hematological/Lymphatic: Reports no symptoms Physical Exam Related Data Allergies: Coded Allergies: levofloxacin (Verified Allergy, Severe, Unconscious, 10/16/18) promethazine (Verified Allergy, Severe, UNCONCIOUS, 10/16/18) labetalol (Verified Allergy, Mild, SEVERE WEAKNESS, 10/16/18) cefuroxime (Verified Allergy, Unknown, 03/17/20) sulfamethoxazole (Unverified Adverse Reaction, Severe, NONAROUSABLE, 10/16/18) PER PATIENT trimethoprim (Unverified Adverse Reaction, Severe, NONAROUSABLE, 10/16/18) PER PATIENT codeine (Verified Adverse Reaction, Intermediate, HALLUCINATIONS, 10/16/18) Triage Vital Signs Vital Signs Date Time Temp Pulse Resp B/P (MAP) Pulse Ox O2 Delivery O2 Flow Rate FiO2 03/17/20 15:15 98.0 116 24 120/72 97 03/17/20 22:43 Room Air Vital signs reviewed: Yes Physical Exam CONSTITUTIONAL Constitutional: Present well-developed, Present well-nourished HENT HENT: Present normocephalic, Present atraumatic, Present oropharynx clear/moist, Present nose normal HENT L/R: Present left ext ear normal, Present right ext ear normal EYES Eyes: Reports PERRL, Reports conjunctivae normal NECK Neck: Present ROM normal PULMONARY Pulmonary: Present effort normal, Present breath sounds normal CARDIOVASCULAR Cardiovascular: Present regular rhythm, Present heart sounds normal, Present capillary refill normal, Present normal rate GASTROINTESTINAL Abdominal: Present soft, Present nontender, Present bowel sounds normal GENITOURINARY Genitourinary: Present exam deferred SKIN Skin: Present warm, Present dry MUSCULOSKELETAL Musculoskeletal: Present ROM normal NEUROLOGICAL Neurological: Present alert, Present oriented x 3, Present no gross motor or sensory deficits PSYCHOLOGICAL Psychological: Present mood/affect normal, Present judgement normal Results Laboratory Result Diagram: 03/20/20 0500 03/20/20 0500 Lab results reviewed: Yes Imaging Imaging results reviewed: Yes Procedures 12 Lead ECG Interpretation ECG Interpretation : ECG: ECG 1 Instructional Media Services Technician: Interpreted by ED physician Rhythm: sinus tachycardia Rate: tachycardia QRS axis: normal ST segments normal: Yes T waves normal: Yes Clinical Impression: abnormal ECG Assessment & Plan Medical Decision Making MDM 79 female arrived to the ED with complaints generalized malaise, notably ta chycardic. Patient admitted for weakness and further workup. Assessment & Plan Final Impression: (1) Weakness (2) Dizziness Depart Disposition: ADMITTED Last Vital Signs Date Time Temp Pulse Resp B/P (MAP) Pulse Ox O2 Delivery O2 Flow Rate FiO2 03/20/20 11:29 99.8 79 17 139/65 (89) 99 03/19/20 21:00 Room Air Home Meds Reported Medications Calcium Carbonate (TUMS) 300 Mg Tab.chew, 1 EA PO Q6H PRN for INDIGESTION 03/17/20 Amlodipine Besylate (AMLODIPINE BESYLATE) 5 Mg Tablet, 5 MG PO DAILY, #30 TAB 10/16/18 Clopidogrel Bisulfate (CLOPIDOGREL) 75 Mg Tablet, 75 MG PO DAILY, #30 TAB 10/16/18 Aspirin (ASPIR 81) 81 Mg Tablet.dr, 81 MG PO HS 01/14/18 Calcium Carbonate/Vitamin D3 (OS-CLARI 500+D TABLET) 1 Each Tablet, 500 MG PO BID, #30 TAB 07/27/14 Lovastatin (LOVASTATIN) 40 Mg Tablet, 40 MG PO HS 07/27/14 Liothyronine Sodium (LIOTHYRONINE SODIUM) 5 Mcg Tablet, 15 MCG PO DAILY 07/27/14 Levothyroxine Sodium (LEVOTHYROXINE SODIUM) 75 Mcg Tablet, 100 MCG PO DAILY, #30 TAB 07/27/14 IMANI HODGE DO May 04, 2020 04:48
== END 2020-03-20 16:00 | disposition home or self-care (01) ==
LOC: ER 14:56 → ERHOLD 18:35 → MED/SURG 21:48 → IMCU 03-19 21:48 → INTOOBSV 03-20 08:37 → OBSVTOIN 03-20 08:37
PROVIDERS: ADMIT Internal Medicine; ATTEND Internal Medicine
DX: U07.1 COVID-19 (principal); L03.031 Cellulitis of right toe; I70.218 Atherosclerosis of native arteries of extremities with intermittent claudication, other extremity; L97.428 Non-pressure chronic ulcer of left heel and midfoot with other specified severity; E11.51 Type 2 diabetes mellitus with diabetic peripheral angiopathy without gangrene; E11.621 Type 2 diabetes mellitus with foot ulcer; R19.7 Diarrhea, unspecified; Z79.4 Long term (current) use of insulin; E78.5 Hyperlipidemia, unspecified; Z88.8 Allergy status to other drugs, medicaments and biological substances; E03.9 Hypothyroidism, unspecified; Z87.442 Personal history of urinary calculi; Z85.528 Personal history of other malignant neoplasm of kidney; Z90.5 Acquired absence of kidney; Z88.1 Allergy status to other antibiotic agents; Z88.2 Allergy status to sulfonamides; Z88.5 Allergy status to narcotic agent; I12.9 Hypertensive chronic kidney disease with stage 1 through stage 4 chronic kidney disease, or unspecified chronic kidney disease; E11.22 Type 2 diabetes mellitus with diabetic chronic kidney disease; N18.3 Chronic kidney disease, stage 3 (moderate); Z95.820 Peripheral vascular angioplasty status with implants and grafts
CPT/HCPCS: 36415 ×4; 71045 ×2; 73630; 73706; 80053 ×4; 81001; 82550 ×2; 82553 ×2; 83605; 83735 ×2; 84484 ×2; 84550; 85025 ×4; 85610; 85730; 87040; 87086; 93005; 93925; 97116; 97161; 99284; G0378 ×4; J0692 ×3; J1650; J7030; J7050 ×2; Q0162; Q9967; U0002

== ENCOUNTER 2020-04-12 12:36 | Inpatient (IN) | payer MEDICARE, OTHER ==
[~2020-04-12] VITALS: Ht 153.2 cm; Wt 59.0 kg
[~2020-04-12 12:36] MED LIST changes: +TUMS300 MG PO
[2020-04-12] MEDS ORDERED: SODIUM CHLORIDE 0.9% 1000ML 1,000 ML IV STA (13:57)
[2020-04-12 14:20] LABS: BASOPHILS % 0.5 % (0.0-1.0); EOSINOPHILS % 0.3 % (0.0-6.0); HEMATOCRIT 43.7 % (34.2-44.1); HEMOGLOBIN 13.8 g/dL (12.0-16.0); LYMPHOCYTES # (AUTO) 1.5 (1.0-3.2); LYMPHOCYTES % 18.4 % (18.0-39.1); MEAN CORPUSCULAR HEMOGLOBIN 30.1 pg (28-32); MEAN CORPUSCULAR HGB CONC 31.6 g/dL (31-35); MEAN CORPUSCULAR VOLUME 95.4 fL (81-99); MONOCYTES # (AUTO) 0.8 (0.2-0.8); MONOCYTES % 10.6 % (4.4-11.3); NEUTROPHILS # (AUTO) 5.5 (2.1-6.9); NEUTROPHILS % 69.3 % (38.7-80.0); PLATELET COUNT 272 x10e3/uL (140-360); RED BLOOD COUNT 4.58 x10e6/uL (3.6-5.1); RED CELL DISTRIBUTION WIDTH 13.2 % (11.7-14.4)
[2020-04-12 14:38] LABS: INR 0.76; PARTIAL THROMBOPLASTIN TIME 21.4 seconds (23.8-35.5); PROTHROMBIN TIME 11.1 seconds (11.9-14.5)
[2020-04-12 14:49] LABS: ALANINE AMINOTRANSFERASE 27 IU/L (0-55); ALBUMIN 2.8 g/dL (3.5-5.0); ALKALINE PHOSPHATASE 51 IU/L (40-150); ANION GAP 10.3 mmol/L (8-16); BLOOD UREA NITROGEN 18 mg/dL (7-26); BUN/CREATININE RATIO 19 (6-25); CALCIUM 8.3 mg/dL (8.4-10.2); CARBON DIOXIDE 26 mmol/L (22-29); CHLORIDE 111 mmol/L (98-107); CREATINE KINASE 41 IU/L (29-168); CREATININE, SERUM 0.93 mg/dL (0.57-1.11); EST GLOMERULAR FILTRATION RATE 58 ML/MIN (60-); GLUCOSE 85 mg/dL (74-118); MAGNESIUM 1.9 MG/DL (1.3-2.1); POTASSIUM 4.3 mmol/L (3.5-5.1); SODIUM 143 mmol/L (136-145)
--- NOTE | 2020-04-12 15:36 | Diagnostic Imaging Report ---
Examination: Single AP view of the chest. COMPARISON: None. INDICATION: Syncope DISCUSSION: Lines/tubes: None. Lungs: The lungs are well inflated and clear. No pneumonia or pulmonary edema. Pleura: No pleural effusion or pneumothorax. Heart and mediastinum: The heart and the mediastinum are unremarkable. Bones and soft tissues: No acute bony abnormalities. IMPRESSION: 1. No acute cardiopulmonary abnormalities. Signed by: Dr. Thanh Floyd M.D. on 04/12/2020 3:33 PM
--- NOTE | 2020-04-12 15:39 | Diagnostic Imaging Report ---
Exam: Left hip 2 views History: Pain Comparison: None. Findings: No acute fracture or malalignment. 3 femoral necks to reduce for prior fracture which is healed. No abnormal soft tissue calcification or soft tissue defect. Impression: No acute osseous abnormality Signed by: Dr. Thanh Floyd M.D. on 04/12/2020 3:36 PM
[2020-04-12 16:05] LABS: CLARITY,URINE CLEAR (CLEAR); COLOR,URINE YELLOW (YELLOW); KETONES,URINE NEGATIVE (NEGATIVE); LEUKOCYTE ESTERASE ,URINE NEGATIVE (NEGATIVE); NITRITE,URINE NEGATIVE (NEGATIVE); PROTEIN,URINE DIPSTICK NEGATIVE (NEGATIVE)
[2020-04-12 16:06] LABS: BILIRUBIN,URINE NEGATIVE (NEGATIVE); URINE UROBILINOGEN 0.2 mg/dL (0.2 - 1)
--- NOTE | 2020-04-12 16:14 | Diagnostic Imaging Report ---
Examination: CT head without contrast Clinical Indication: SYNCOPE/FALL. Technique: Transaxial noncontrast images from the skull base through the vertex were obtained. Sagittal and coronal reformatted images were done. Dose modulation, iterative reconstruction, and/or weight based adjustment of the mA/kV was utilized to reduce the radiation dose to as low as reasonably achievable. Comparison: Head CT dated March 26, 2018. Findings: Scalp: No abnormalities. Bones: Intact. No fractures. No blastic or lytic lesions. Brain sulci: Mild volume loss for patient's age. Ventricles: No hydrocephalus. Extra-axial space: No abnormalities. Parenchyma: There are patchy areas of low-attenuation within subcortical and periventricular white matter, nonspecific, but could represent microvascular ischemic disease, unchanged. No masses, hemorrhage, or acute or chronic cortical based vascular insults. Suprasellar region: No abnormalities. Craniocervical junction: The foramen magnum is patent. No Chiari one malformation. Incidental findings: Atherosclerotic calcification of the cavernous and supraclinoid internal carotid arteries. Impression: 1. No acute intracranial finding when compared head CT dated March 26, 2018. 2. Unchanged chronic microvascular ischemic change and volume loss. Signed by: Dr. Christi Meléndez M.D. on 04/12/2020 4:10 PM
--- NOTE | 2020-04-12 16:24 | Diagnostic Imaging Report ---
Examination: CT CERVICAL SPINE WO CONTRAST HISTORY:Neck pain and injury after fall. COMPARISON:March 26, [address] TECHNIQUE: Multidetector helical axial images were obtained without contrast from the foramen magnum to T1. Coronal and sagittal reformatted images were done. Bone and soft tissue windows were evaluated. Dose modulation, iterative reconstruction, and/or weight based adjustment of the mA/kV was utilized to reduce the radiation dose to as low as reasonably achievable. FINDINGS: Alignment:Normal alignment with straightening of normal lordosis. Vertebrae: Normal height and density. No acute fracture, infection or neoplasm. Disc space heights: Severe height loss from C4-C7. Caliber of spinal canal: Developmentally normal. Posterior fossa and craniocervical junction: Foramen magnum patent. No Chiari 1 malformation. Soft tissues: Atherosclerotic calcification of the bilateral carotid arteries. Degenerative changes: No disc herniation or canal stenosis. Visualized lung apices: Biapical pleural thickening. IMPRESSION: No acute abnormalities when compared to prior dated March 26, 2018. Signed by: Dr. Christi Meléndez M.D. on 04/12/2020 4:21 PM
[2020-04-12 16:37] LABS: RBC,URINE 0-5 /HPF (0-5); WBC,URINE (MAN) 0-5 /HPF (0-5)
[2020-04-12 16:38] LABS: BACTERIA,URINE FEW /HPF; EPITHELIAL CELLS,URINE MODERATE /LPF
--- NOTE | 2020-04-12 16:47 | Emergency Department Note ---
History of Present Illnes History of Present Illness Chief Complaint: General Medicine Complaints History of Present Illness This is a 79 year old female DIZZY AND FELL, WOKE UP ON FLOOR, DOESN'T REMEMBER HOW SHE ENDED UP ON FLOOR. LEFT HIP PAIN ONLY WITH STANDING. PT WAS ABLE TO WALK, BUT PAIN 10/10 WITH WALKING. PREVIOUS LEFT FX W/HARDWARE. PT AAOX4. NENANA. PT WAS COVID POSITIVE 3 WKS. NO FOLLOW SCREENING DONE. 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 Any updates have been documented here. Past Medical History Recent Fever: No Clinical Suspicion of Infectio: No New/Unexplained Change in Ment: No Past Medical History: Cancer, Chronic Kidney Disease Other Medical History: TONSILLECTOMY ARTHROSCOPIC R KNEE L HIP FRACTURE RT KIDNEY REMOVED STENT IN RIGHT LEG Past Surgical History: Cholecysctectomy, Hysterectomy, PCI, Hip Replacement, Knee Replacement Other Surgery: RIGHT KNEE SURGERY-SCRAPING LEFT HIP REPAIR RIGHT NEPHRECTOMY 2016 ABD SCAR TISSUE REVOVAL SURGERY 2012 STENT (R) LEG Social History Smoking Cessation: Never Smoker Counseling Performed: No Alcohol Use: None Any Illegal Drug Use: No Physically hurt or threatened: No Other Last Tetanus: 2017 Any Pre-Existing Lines (PICC,: No Review of Systems Review of Systems Constitutional: Reports as per HPI EENTM: Reports no symptoms Cardiovascular: Reports as per HPI, Reports syncope Respiratory: Reports no symptoms Gastrointestinal: Reports no symptoms Genitourinary: Reports no symptoms Musculoskeletal: Reports as per HPI Integumentary: Reports no symptoms Neurological: Reports no symptoms Psychological: Reports no symptoms Endocrine: Reports no symptoms Hematological/Lymphatic: Reports no symptoms Physical Exam Related Data Allergies: Coded Allergies: levofloxacin (Verified Allergy, Severe, Unconscious, 10/16/18) promethazine (Verified Allergy, Severe, UNCONCIOUS, 10/16/18) labetalol (Verified Allergy, Mild, SEVERE WEAKNESS, 10/16/18) cefuroxime (Verified Allergy, Unknown, 03/17/20) sulfamethoxazole (Unverified Adverse Reaction, Severe, NONAROUSABLE, 10/16/18) PER PATIENT trimethoprim (Unverified Adverse Reaction, Severe, NONAROUSABLE, 10/16/18) PER PATIENT codeine (Verified Adverse Reaction, Intermediate, HALLUCINATIONS, 10/16/18) Triage Vital Signs Vital Signs Date Time Temp Pulse Resp B/P (MAP) Pulse Ox O2 Delivery O2 Flow Rate FiO2 04/12/20 12:40 97.8 75 16 159/98 99 Room Air Vital signs reviewed: Yes Physical Exam CONSTITUTIONAL Constitutional: Present well-developed, Present well-nourished HENT HENT: Present normocephalic, Present atraumatic, Present oropharynx clear/moist, Present nose normal HENT L/R: Present left ext ear normal, Present right ext ear normal EYES Eyes: Reports PERRL, Reports conjunctivae normal NECK Neck: Present ROM normal PULMONARY Pulmonary: Present effort normal, Present breath sounds normal CARDIOVASCULAR Cardiovascular: Present regular rhythm, Present heart sounds normal, Present capillary refill normal, Present normal rate GASTROINTESTINAL Abdominal: Present soft, Present nontender, Present bowel sounds normal GENITOURINARY Genitourinary: Present exam deferred SKIN Skin: Present warm, Present dry MUSCULOSKELETAL Musculoskeletal: Present other (TENDER LEFT HIP, NO SHORTENING OF LEG OR ROTATED) NEUROLOGICAL Neurological: Present alert, Present oriented x 3, Present no gross motor or sensory deficits PSYCHOLOGICAL Psychological: Present mood/affect normal, Present judgement normal Results Laboratory Result Diagram: 04/12/20 1410 04/12/20 1410 Laboratory Laboratory Tests Test 04/12/20 15:50 04/12/20 14:10 Urine Color Yellow (YELLOW) Urine Clarity Clear (CLEAR) Urine pH 7 (5 - 7) Urine Specific [place] 1.020 (1.010-1.025) Urine Protein Negative (NEGATIVE) Urine Glucose (UA) Negative (NEGATIVE) Urine Ketones Negative (NEGATIVE) Urine Blood Negative (NEGATIVE) Urine Nitrite Negative (NEGATIVE) Urine Bilirubin Negative (NEGATIVE) Urine Urobilinogen 0.2 mg/dL (0.2 - 1) Urine Leukocyte Esterase Negative (NEGATIVE) Urine RBC 0-5 /HPF (0-5) Urine WBC 0-5 /HPF (0-5) Urine Epithelial Cells Moderate /LPF (NONE) Urine Bacteria Few /HPF (NONE) White Blood Count 7.86 x10e3/uL (4.8-10.8) Red Blood Count 4.58 x10e6/uL (3.6-5.1) Hemoglobin 13.8 g/dL (12.0-16.0) Hematocrit 43.7 % (34.2-44.1) Mean Corpuscular Volume 95.4 fL (81-99) Mean Corpuscular Hemoglobin 30.1 pg (28-32) Mean Corpuscular Hemoglobin Concent 31.6 g/dL (31-35) Red Cell Distribution Width 13.2 % (11.7-14.4) Platelet Count 272 x10e3/uL (140-360) Neutrophils (%) (Auto) 69.3 % (38.7-80.0) Lymphocytes (%) (Auto) 18.4 % (18.0-39.1) Monocytes (%) (Auto) 10.6 % (4.4-11.3) Eosinophils (%) (Auto) 0.3 % (0.0-6.0) Basophils (%) (Auto) 0.5 % (0.0-1.0) Neutrophils # (Auto) 5.5 (2.1-6.9) Lymphocytes # (Auto) 1.5 (1.0-3.2) Monocytes # (Auto) 0.8 (0.2-0.8) Eosinophils # (Auto) 0.0 (0.0-0.4) Basophils # (Auto) 0.0 (0.0-0.1) Absolute Immature Granulocyte (auto 0.07 x10e3/uL (0-0.1) Prothrombin Time 11.1 seconds (11.9-14.5) Prothromb Time International Ratio 0.76 Activated Partial Thromboplast Time 21.4 seconds (23.8-35.5) Sodium Level 143 mmol/L (136-145) Potassium Level 4.3 mmol/L (3.5-5.1) Chloride Level 111 mmol/L (98-107) Carbon Dioxide Level 26 mmol/L (22-29) Anion Gap 10.3 mmol/L (8-16) Blood Urea Nitrogen 18 mg/dL (7-26) Creatinine 0.93 mg/dL (0.57-1.11) Estimat Glomerular Filtration Rate 58 ML/MIN (60-) BUN/Creatinine Ratio 19 (6-25) Glucose Level 85 mg/dL (74-118) Calcium Level 8.3 mg/dL (8.4-10.2) Magnesium Level 1.9 MG/DL (1.3-2.1) Total Bilirubin 0.2 mg/dL (0.2-1.2) Aspartate Amino Transf (AST/SGOT) 27 IU/L (5-34) Alanine Aminotransferase (ALT/SGPT) 27 IU/L (0-55) Alkaline Phosphatase 51 IU/L (40-150) Creatine Kinase 41 IU/L (29-168) Creatine Kinase MB 1.50 ng/mL (0-5.0) Troponin I < 0.001 ng/mL (0-0.300) B-Type Natriuretic Peptide 52.8 pg/mL (0-100) Total Protein 5.7 g/dL (6.5-8.1) Albumin 2.8 g/dL (3.5-5.0) Globulin 2.9 g/dL (2.3-3.5) Albumin/Globulin Ratio 1.0 (0.8-2.0) Lab results reviewed: Yes Imaging Imaging results reviewed: Yes Impressions Exam: Left hip 2 views History: Pain Comparison: None. Findings: No acute fracture or malalignment. 3 femoral necks to reduce for prior fracture which is healed. No abnormal soft tissue calcification or soft tissue defect. Impression: No acute osseous abnormality Signed by: Dr. Thanh Floyd M.D. on 04/12/2020 3:36 PM Examination: Single AP view of the chest. COMPARISON: None. INDICATION: Syncope DISCUSSION: Lines/tubes: None. Lungs: The lungs are well inflated and clear. No pneumonia or pulmonary edema. Pleura: No pleural effusion or pneumothorax. Heart and mediastinum: The heart and the mediastinum are unremarkable. Bones and soft tissues: No acute bony abnormalities. IMPRESSION: 1. No acute cardiopulmonary abnormalities. Signed by: Dr. Thanh Floyd M.D. on 04/12/2020 3:33 PM Examination: CT CERVICAL SPINE WO CONTRAST HISTORY:Neck pain and injury after fall. COMPARISON:March 26, [address] TECHNIQUE: Multidetector helical axial images were obtained without contrast from the foramen magnum to T1. Coronal and sagittal reformatted images were done. Bone and soft tissue windows were evaluated. Dose modulation, iterative reconstruction, and/or weight based adjustment of the mA/kV was utilized to reduce the radiation dose to as low as reasonably achievable. FINDINGS: Alignment:Normal alignment with straightening of normal lordosis. Vertebrae: Normal height and density. No acute fracture, infection or neoplasm. Disc space heights: Severe height loss from C4-C7. Caliber of spinal canal: Developmentally normal. Posterior fossa and craniocervical junction: Foramen magnum patent. No Chiari 1 malformation. Soft tissues: Atherosclerotic calcification of the bilateral carotid arteries. Degenerative changes: No disc herniation or canal stenosis. Visualized lung apices: Biapical pleural thickening. IMPRESSION: No acute abnormalities when compared to prior dated March 26, 2018. Signed by: Dr. Christi Meléndez M.D. on 04/12/2020 4:21 PM Examination: CT CERVICAL SPINE WO CONTRAST HISTORY:Neck pain and injury after fall. COMPARISON:March 26, [address] TECHNIQUE: Multidetector helical axial images were obtained without contrast from the foramen magnum to T1. Coronal and sagittal reformatted images were done. Bone and soft tissue windows were evaluated. Dose modulation, iterative reconstruction, and/or weight based adjustment of the mA/kV was utilized to reduce the radiation dose to as low as reasonably achievable. FINDINGS: Alignment:Normal alignment with straightening of normal lordosis. Vertebrae: Normal height and density. No acute fracture, infection or neoplasm. Disc space heights: Severe height loss from C4-C7. Caliber of spinal canal: Developmentally normal. Posterior fossa and craniocervical junction: Foramen magnum patent. No Chiari 1 malformation. Soft tissues: Atherosclerotic calcification of the bilateral carotid arteries. Degenerative changes: No disc herniation or canal stenosis. Visualized lung apices: Biapical pleural thickening. IMPRESSION: No acute abnormalities when compared to prior dated March 26, 2018. Signed by: Dr. Christi Meléndez M.D. on 04/12/2020 4:21 PM Procedures 12 Lead ECG Interpretation ECG Interpretation : ECG: ECG 1 Aircraft Engine Specialist: Interpreted by ED physician Date: Apr 12, 2020 Time: 12:44 Rhythm: sinus rhythm Rate: normal (78) QRS axis: normal ST segments normal: Yes Clinical Impression: normal ECG Assessment & Plan Medical Decision Making MDM SYNCOPE, FALL ONTO LEFT HIP - CHECK CBC, CHEM, ECG, CARDIACS, CT HEAD/C-SPINE, CXR, LEFT HIP/PELVIS - R/O STEMI/NSTEMI, DYSRHYTHMIA, INJURY TO LEFT HIP/FX Reassessment Reassessment ADMIT DR SUTTON ([facility]) Assessment & Plan Final Impression: (1) Contusion of hip, left (2) Fall (3) Syncope Depart Disposition: ADMITTED Last Vital Signs Date Time Temp Pulse Resp B/P (MAP) Pulse Ox O2 Delivery O2 Flow Rate FiO2 04/12/20 16:00 74 16 149/53 100 04/12/20 12:51 98.3 04/12/20 12:40 Room Air Home Meds Reported Medications Calcium Carbonate (TUMS) 300 Mg Tab.chew, 1 EA PO Q6H PRN for INDIGESTION 03/17/20 Amlodipine Besylate (AMLODIPINE BESYLATE) 5 Mg Tablet, 5 MG PO DAILY, #30 TAB 10/16/18 Clopidogrel Bisulfate (CLOPIDOGREL) 75 Mg Tablet, 75 MG PO DAILY, #30 TAB 10/16/18 Aspirin (ASPIR 81) 81 Mg Tablet.dr, 81 MG PO HS 01/14/18 Calcium Carbonate/Vitamin D3 (OS-CLARI 500+D TABLET) 1 Each Tablet, 500 MG PO BID, #30 TAB 07/27/14 Lovastatin (LOVASTATIN) 40 Mg Tablet, 40 MG PO HS 07/27/14 Liothyronine Sodium (LIOTHYRONINE SODIUM) 5 Mcg Tablet, 15 MCG PO DAILY 07/27/14 Levothyroxine Sodium (LEVOTHYROXINE SODIUM) 75 Mcg Tablet, 100 MCG PO DAILY, #30 TAB 07/27/14 Medications in the ED Sodium Chloride 1,000 ml @ 0 mls/hr Q0M STAT IV Last administered on 04/12/20at 14:19; Admin Dose 999 MLS/HR; Start 04/12/20 at 13:57; Stop 04/12/20 at 14:02; Status DC JIM CORDERO MD Apr 12, 2020 16:47
[2020-04-12] MEDS ORDERED: ONDANSETRON HCL INJ 2MG/ML 2ML 2 MG/ML VIAL IV PRN ×2 (17:15→19:45)
[2020-04-12] MEDS: FAMOTIDINE 20 MG/2 ML VIAL IV SCH (18:29)
[2020-04-12 19:30] VITALS: BP 145/68
[2020-04-12] MEDS ORDERED: ACETAMINOPHEN 325 MG TAB PO PRN (19:45)
[2020-04-12] MEDS ORDERED: DOCUSATE SODIUM 100 MG CAP PO PRN (19:45)
[2020-04-12] MEDS: SIMVASTATIN 20 MG TAB PO SCH (21:49)
[2020-04-12 22:09] VITALS: BP 145/68
[2020-04-12 22:48] LABS: CREATINE KINASE MB 1.4 ng/mL (0-5.0)
[2020-04-13] VITALS (9 sets, daily range): BP systolic 135–175; BP diastolic 67–78
[2020-04-13 05:40] LABS: BASOPHILS # (AUTO) 0.1 (0.0-0.1); BASOPHILS % 0.5 % (0.0-1.0); EOSINOPHILS % 0.1 % (0.0-6.0); HEMATOCRIT 41.7 % (34.2-44.1); HEMOGLOBIN 13.1 g/dL (12.0-16.0); LYMPHOCYTES # (AUTO) 1.8 (1.0-3.2); LYMPHOCYTES % 19.8 % (18.0-39.1); MEAN CORPUSCULAR HGB CONC 31.4 g/dL (31-35); MEAN CORPUSCULAR VOLUME 95.6 fL (81-99); MONOCYTES # (AUTO) 0.9 (0.2-0.8); MONOCYTES % 9.3 % (4.4-11.3); NEUTROPHILS # (AUTO) 6.5 (2.1-6.9); NEUTROPHILS % 69.5 % (38.7-80.0); PLATELET COUNT 264 x10e3/uL (140-360); RED BLOOD COUNT 4.36 x10e6/uL (3.6-5.1); RED CELL DISTRIBUTION WIDTH 13.2 % (11.7-14.4)
[2020-04-13 06:04] LABS: ALBUMIN 2.9 g/dL (3.5-5.0); ANION GAP 13.2 mmol/L (8-16); CALCIUM 9.1 mg/dL (8.4-10.2); CHOL/HDL RATIO 3.3 (3.0-3.6); CREATININE, SERUM 0.97 mg/dL (0.57-1.11); POTASSIUM 4.2 mmol/L (3.5-5.1)
[2020-04-13] MEDS: FAMOTIDINE 20 MG/2 ML VIAL IV SCH ×2 (06:13→17:27)
[2020-04-13 06:28] LABS: CREATINE KINASE MB 1.4 ng/mL (0-5.0)
[2020-04-13] MEDS: LIOTHYRONINE SODIUM 5 MCG TAB PO SCH (09:39)
[2020-04-13] MEDS: CLOPIDOGREL BISULFATE 75 MG TAB PO SCH (09:39)
[2020-04-13] MEDS: AMLODIPINE BESYLATE 5 MG TAB PO SCH (09:39)
[2020-04-13] MEDS: ASPIRIN 81 MG ENTERIC COATED PO SCH (09:39)
[2020-04-13] MEDS: LEVOTHYROXINE SODIUM 75 MCG TAB PO SCH (09:39)
--- NOTE | 2020-04-13 10:30 | NUR ---
Pt received form [facility] at this time. Pt is aox4 and able to verbalize needs. Denies any pain at this time. breaths are even and unlabored on room air. 0 s/s of acute distress noted at time of transfer.
--- NOTE | 2020-04-13 18:44 | Consultation ---
DATE OF CONSULTATION: 04/13/2020 REASON FOR CONSULTATION: COVID-19. HISTORY OF PRESENT ILLNESS: This patient, who is a very pleasant 79-year-old white female. She was diagnosed with COVID-19 more than 2 weeks ago. The patient was admitted to the hospital on 04/12 with dizziness and weakness. The patient is going to be seen by Cardiology today. Her COVID-19 came back positive again. I have discussed the case with Dr. Diaz, her primary care physician. The patient, who is currently lying in bed. She has no complaints whatsoever. There is no fever, no chills, no cough. She is feeling really great at the present time. She was diagnosed as mentioned above almost a month ago with COVID-19, but since then she is doing good and she came for different symptoms. The patient is currently as mentioned above doing quite well. REVIEW OF SYSTEMS: Totally negative. Fourteen-point reviewed, it is already negative. LABORATORY DATA: Her white count 9.28, hemoglobin of 13, and hematocrit 41. Sodium 142, potassium 4.2 with a creatinine of 0.97. The patient, who had a chest x-ray when she first came, which showed no acute finding. PHYSICAL EXAMINATION: GENERAL: She is currently alert and oriented. VITAL SIGNS: Stable, currently afebrile. HEENT: She is not icteric. NECK: Supple. CHEST: Clear. HEART: S1 and S2. No S3, S4, or murmur. ABDOMEN: Soft. Bowel sounds present. No tenderness. EXTREMITIES: No edema. SKIN: No rash. IMPRESSION: Positive COVID-19 four weeks after that she had it. I think that really it could mean part of the virus or that virus is hard to interpret. The patient is clinically asymptomatic. Unfortunately, while she is in the hospital, she stayed in droplet isolation and contact isolation. However, from Infectious Disease point of view, she does not need to be in isolation once she leaves the hospital. I told her there is really no need for treatment once her cardiac issues have been resolved. The patient will be discharged today to maintain with social distance, hand washing, and wearing a mask as mandated by the state. But the positive PCR does not indicate that she has an active virus infection at present time. If anything it reflects either virus that could be positive up to 8 weeks and sometimes 10 weeks. I would not recommend to recheck it again. This was discussed with attending and the patient in detail. MD ABBIE Simeon/MICHELLE /[id number]
[2020-04-13] MEDS: SIMVASTATIN 20 MG TAB PO SCH (20:00)
--- NOTE | 2020-04-13 22:41 | Consultation ---
DATE OF CONSULTATION: 04/13/2020 Cardiology Consultation REQUESTING PHYSICIAN: Santiago Diaz MD. REASON FOR CONSULTATION: Syncope. HISTORY OF PRESENT ILLNESS: This is a 79-year-old woman with history of peripheral arterial disease, moderate carotid artery disease, hypertension, and hyperlipidemia, who presents with complaints of possible syncope. The patient reports she was in the kitchen doing some errands when she found herself on the floor. She recalls falling to the ground and denies any loss of consciousness, but is unclear of how the fall occurred. She denied any chest pain or palpitations, but does note she felt dizzy on sitting up after her fall. Denies dizziness prior. 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 Denies any edema, orthopnea, or PND. States she was diagnosed with COVID-19 recently, but her only symptoms are loss of taste and smell. Of note, she notices she reports some erythema on her left foot beginning on Monday night. REVIEW OF SYSTEMS: Negative except as per HPI. PAST MEDICAL HISTORY: 1. Peripheral arterial disease. 2. Moderate carotid artery disease. 3. Hypertension. 4. Hyperlipidemia. PAST SURGICAL HISTORY: 1. Nephrectomy. 2. Hysterectomy. 3. Cholecystectomy. 4. Tonsillectomy. 5. Hip surgery. 6. Knee surgery. ALLERGIES: PLEASE SEE EMR. MEDICATIONS: Please see medication list. SOCIAL HISTORY: No tobacco, alcohol, or illicit drugs. FAMILY HISTORY: Noncontributory to current illness. PHYSICAL EXAMINATION: VITAL SIGNS: Temperature 97.8 degrees, pulse 89, respiratory rate 20, blood pressure 135/78, and oxygen saturation 99%. Physical exam was not performed due to isolation for COVID-19. LABORATORY DATA: WBC 9.28, hemoglobin 13.1, hematocrit 41.7, and platelets 264. Sodium 140, potassium 4.2, chloride 110, CO2 23, BUN 14, and creatinine 0.97. Troponin 0.002. Telemetry was personally reviewed and interpreted revealing normal sinus rhythm. IMPRESSION: 1. Syncope. 2. COVID-19. 3. Peripheral arterial disease. 4. Moderate carotid artery disease. 5. Hypertension. 6. Hyperlipidemia. RECOMMENDATIONS: Check orthostatic vitals. The patient had echocardiogram performed earlier this year with preserved LV systolic function, no significant valvular abnormalities. She has ruled out for myocardial infarction. Repeat echocardiogram is not indicated at this time. Obtain carotid Doppler given the patient's known moderate carotid artery disease. Monitor on telemetry for arrhythmias that may explain the patient's symptoms. Management of COVID-19 per Infectious Disease. Continue home cardiac medications. Blood pressure is elevated for her age, however, given her recent fall, we will not lower her blood pressure at this time. Thank you for this consult. We will continue to follow. Jacqui Mitchell MD ABS/MODL /[id number] MTDD
[2020-04-14] VITALS (7 sets, daily range): BP systolic 142–151; BP diastolic 57–79
[2020-04-14] MEDS: FAMOTIDINE 20 MG/2 ML VIAL IV SCH ×2 (05:34→18:00)
[2020-04-14] MEDS: ASPIRIN 81 MG ENTERIC COATED PO SCH (07:36)
[2020-04-14] MEDS: LIOTHYRONINE SODIUM 5 MCG TAB PO SCH (07:36)
[2020-04-14] MEDS: LEVOTHYROXINE SODIUM 75 MCG TAB PO SCH (07:37)
[2020-04-14] MEDS: AMLODIPINE BESYLATE 5 MG TAB PO SCH (07:37)
[2020-04-14] MEDS: CLOPIDOGREL BISULFATE 75 MG TAB PO SCH (07:37)
[2020-04-14] MEDS ORDERED: SODIUM CHLORIDE 0.9% 250ML 250 ML IV SCH (11:00)
[2020-04-14] MEDS ORDERED: SODIUM CHLORIDE 0.9% 100 ML ONE (11:29)
[2020-04-14] MEDS ORDERED: IOPAMIDOL 370 MG/ML 200 ML INFUS..BTL INJ ONE (11:29)
[2020-04-14] MEDS ORDERED: SODIUM CHLORIDE 0.9% 250ML 250 ML ONE (12:17)
--- NOTE | 2020-04-14 12:24 | Progress Note ---
DATE: 04/14/2020 Cardiology Progress Note SUBJECTIVE: The patient was discussed with nursing staff. No chest pain, shortness of breath or dizziness were reported. The patient is pending CTA of the neck to evaluate her carotid disease. PHYSICAL EXAMINATION: VITAL SIGNS: Temperature 97.9 degrees, pulse 100, respiratory rate 18, blood pressure 146/69, oxygen saturation 97% on room air. The patient was not examined due to isolation for COVID-19. CARDIAC MEDICATIONS: Levothyroxine 100 mcg p.o. daily, Plavix 75 mg p.o. daily, amlodipine 5 mg p.o. daily, aspirin 81 mg p.o. daily, simvastatin 40 mg p.o. at bedtime, liothyronine 15 mcg p.o. daily. TELEMETRY: Personally reviewed and interpreted revealing normal sinus rhythm with PVCs. IMPRESSION: 1. Syncope. 2. COVID-19. 3. Peripheral arterial disease. 4. Moderate carotid artery disease. 5. Hypertension. 6. Hyperlipidemia. RECOMMENDATIONS: The patient was orthostatic on vitals yesterday evening. Encourage fluid intake. CTA of the neck is pending. If carotid disease is not severe, we would recommend continuing medical therapy with aspirin and Plavix. Change simvastatin to atorvastatin for further LDL lowering. Continue current cardiac medications otherwise. Management of COVID-19 per Infectious Disease. The patient may be able to be discharged home based on CTA results. Thank you for this consult. We will continue to follow. MD DAVID Polk/MODL /[id number] MTDD
--- NOTE | 2020-04-14 13:41 | Diagnostic Imaging Report ---
Examination: Cervical CT Angiogram with Contrast Clinical indication:Carotid stenosis as seen on Doppler examination. Comparison studies:None Technique: Axial images were obtained from the thoracic inlet. Coronal and sagittal images reconstructed from the axial data. Intravenous contrast: 100 cc of Isovue-370. Computer generated maximum intensity projection and 3D images were performed of the bilateral carotid bifurcations and the aortic arch with bilateral common carotid and cervical internal carotid arteries on a separate workstation. Degree of stenosis at the carotid bulbs, if present, will be calculated using NASCET criteria where the smallest diameter at the location of stenosis is compared to the diameter of the more distal non-diseased vessel lumen. Dose modulation, iterative reconstruction, and/or weight based adjustment of the mA/kV was utilized to reduce the radiation dose to as low as reasonably achievable. Findings: Aortic arch and major vessels: Patent despite nonstenotic atherosclerotic calcification which also involves the origins of the innominate, left common carotid artery and left subclavian artery. Mild stenosis (approximately 40%) at the origin of the left subclavian artery due to calcific plaque for a length of 1.4 cm. Nonstenotic calcific plaque within the left subclavian artery and immediately proximal to the origin of the left vertebral artery. Common carotid arteries: Nonstenotic calcific plaque of the anterior mid right common carotid. No abnormalities of the left. Cervical carotid bifurcations: Right: Mild stenosis (40%) due to calcific plaque at the anterior and lateral coe. Left :Severe stenosis (approximately 80%) due to circumferential calcific plaque. Internal carotid arteries: Right: Nonstenotic calcific plaque at the proximal cervical segment of the right internal carotid artery. Left: Approximately 50% stenosis at the occipital cervical segment of the left internal carotid artery for a length of 1.4 cm. Vertebral arteries: Patent. [place]: The left posterior commuting artery is identified, while the right is not. An anterior communicating artery is not clearly visualized. IMPRESSION: Severe stenosis (80%) of the left carotid bifurcation and moderate stenosis of the left cervical internal carotid artery (50%) for a length of 1.4 cm. Mild stenosis (approximately 40%) at the origin of the left subclavian artery due to calcific plaque as detailed above. Signed by: Dr. Christi Meléndez M.D. on 04/14/2020 1:38 PM
--- NOTE | 2020-04-14 14:03 | NUR ---
Notified Dr. Diaz of CTA results and received orders to consult Dr. Al for severe carotid stenosis.
--- NOTE | 2020-04-14 16:00 | NUR ---
Notified Dr. Jackson of CTA results. No new orders received.
--- NOTE | 2020-04-14 19:11 | Progress Note ---
DATE: 04/14/2020 SUBJECTIVE: Ms. Winston is doing well. REVIEW OF SYSTEMS: Negative totally. PHYSICAL EXAMINATION: GENERAL: Alert and oriented. VITAL SIGNS: Stable, afebrile. HEENT: She is not icteric. NECK: Supple. CHEST: Clear. HEART: S1 and S2. No murmur. ABDOMEN: Soft. IMPRESSION: Coronavirus disease 2019. I think this positive test does not reflect that she has an active disease at the present time. The patient had Coronavirus disease 2019 a few weeks ago. This is just a positive PCR. The patient could be discharged home from Infectious Disease point of view. No treatment. Suggesting to a mask and respect social distance. From an Infectious Disease point of view, droplet isolation, just a precaution. MD ABBIE Simeon/MODL /[id number]
--- NOTE | 2020-04-14 19:26 | NUR ---
WOUND CARE INITIAL CONSTULT FOR 79 YO FEMALE ADMITTED TO [facility] FOR FALL, HIP PAIN, SYNCOPE, AND COVID-19. JOB 22 ON CONSERVATIVE PUP STATUS AND INTERVENTIONS LABS: WBC- 9.28 HGB- 13.1 GLUCOSE-87 ALBUMIN 2.9 1)SKIN ASSESSMENT COMPLETE, PATIENT PRESENTS WITH MULTIPLE HEALING BRUISES S/P FALL TO LEFT ARM. 2)RED BLANCHABLE AREA TO SACRUM MEASURING 8 CM X 7 CM. 3)LEFT LOWER POSTERIOR ARM ABRASION DENUDED SKIN WITH BLISTER AREA MEASEURING 4.5 CM X 1 CM X 0.1 CM 4)LEFT HALLUX ULCER PRESSURE ULCER STAGE II; MEASURING 0.4 CM X 0.3 CM X 0.1 CM 5)LEFT ANTERIOR FOOT RED BLANCHABLE REDNESS; MEASURING 5 CM X 2.5 CM. DISCUSS WITH PTS NURSE POSSIBILITY FOR PODIATRY CONSULT; NURSE AWARE AND WILL NOTIFY MD IF A PODIATRY CONSULT IS NEEDED AT THE TIME. RECOMMENDATIONS: NURSING TO CLEAN LEFT LOWER POSTERIOR ARM ABRASION WITH NORMAL SALINE, PAT DRY, APPLY XEROFORM, AND COVER WITH 4X4 GAUZE AND LIGHTLY WRAP WITH KERLIX DAILY. NURSING TO CLEAN LEFT HALLUX STAGE II PRESSURE ULCER WITH NORMAL SALINE, PAT DRY WITH 4X4 GAUZE, PACK WITH PURACOL, APPLY A MOISTENED GAUZE TO LEFT HALLUX, COVER WITH 4X4 GAUZE AND SECURE WITH KERLIX DAILY. NURSING TO APPLY VENELEX TO RED BLANCHABLE AREA TO SACRUM AND LEFT ANTERIOR FOOT AND TO APPLY AN ALLEVYN FOAM. NURSING TO CONSULT WITH MD POSSIBILITY OF PODIATRY CONSULT; PT CURRENTLY SEEING [facility] OUTSIDE HOSPITAL. NURSING TO CONTINUE TO MONITOR PATIENT AND KEEP SKIN CLEAN AND FREE FROM STOOL OR IRRITATING MOISTURE AND CONTINUE TO FOLLOW MODERATE PUP INTERVENTIONS DAILY. NURSING TO CONTINUE REPOSITION PT SIDE TO SIDE EVERY TWO HOURS AND TO ENCOURAGE PT TO SELF REPOSITION IN BED NEEDED. NURSING TO CONTINUE TO APPLY REGULAR VISCO MATTRESS. NURSING TO CONTINUE TO OFFLOAD FEET AND HEELS AT ALL TIMES WITH PILLOW SUSPENSION WHEN IN BED. NURSING TO ASSIST PT OUT OF BED FOR MEALS AND NEEDED. NURSING TO CONTINUE TO ASSIST WITH PT NUTRITIONAL SUPPLEMENTS TO ENSURE PROPER REQUIREMENTS FOR HEALING. NURSING TO RE- CONSULT WOUND CARE NEEDED. Addendum: 04/14/20 at 1933 by Barbara Pacheco RN Amended: Links added.
[2020-04-14] MEDS: ATORVASTATIN 40 MG TAB PO SCH (20:23)
[2020-04-15] VITALS (8 sets, daily range): BP systolic 135–168; BP diastolic 63–78
[2020-04-15] MEDS: FAMOTIDINE 20 MG/2 ML VIAL IV SCH ×2 (05:46→17:36)
[2020-04-15] MEDS: AMLODIPINE BESYLATE 5 MG TAB PO SCH (08:00)
[2020-04-15] MEDS: ASPIRIN 81 MG ENTERIC COATED PO SCH (08:00)
[2020-04-15] MEDS: LIOTHYRONINE SODIUM 5 MCG TAB PO SCH (08:00)
[2020-04-15] MEDS: BALSAM PERU/CASTOR OIL 60 GM OINT...G. TP SCH (08:00)
[2020-04-15] MEDS: LEVOTHYROXINE SODIUM 75 MCG TAB PO SCH (08:00)
[2020-04-15] MEDS: CLOPIDOGREL BISULFATE 75 MG TAB PO SCH (08:00)
--- NOTE | 2020-04-15 14:49 | Progress Note ---
DATE: 04/15/2020 Cardiology Progress note SUBJECTIVE: The patient was discussed with nursing staff. The patient denies chest pain or shortness of breath. CT angiogram of the carotid arteries revealed 80% stenosis of the left carotid bifurcation and moderate stenosis of the left internal carotid artery. She was evaluated by Dr. Al who recommended carotid artery endarterectomy this admission. OBJECTIVE: VITAL SIGNS: Temperature 98.1 degrees, pulse 78, respiratory rate 18, blood pressure 160/93, and oxygen saturation 100% on room air. The patient was not examined due to isolation for COVID-19. CARDIAC MEDICATIONS: Liothyronine 15 mcg p.o. daily, levothyroxine 100 mcg p.o. daily, aspirin 81 mg p.o. daily, atorvastatin 40 mg p.o. at bedtime, and amlodipine 5 mg p.o. daily. LABORATORY DATA: None today. TELEMETRY: Telemetry was personally reviewed and interpreted revealing normal sinus rhythm. IMPRESSION: 1. Syncope. 2. Coronavirus disease-19. 3. Carotid artery stenosis. 4. Peripheral arterial disease. 5. Hypertension. 6. Hyperlipidemia. RECOMMENDATIONS: Increase amlodipine as blood pressure is above goal. Continue statin therapy. Plavix can be held for carotid endarterectomy. Monitor the patient on telemetry. We will review records from the office. Management of COVID-19 per Infectious Disease. Continue supportive care. Thank you for this consult. We will continue to follow. Jacqui Mitchell MD ABS/MODL /[id number]
[2020-04-15] MEDS: ATORVASTATIN 40 MG TAB PO SCH (21:50)
[2020-04-16] VITALS (8 sets, daily range): BP systolic 132–166; BP diastolic 62–80
--- NOTE | 2020-04-16 02:35 | NUR ---
PROVIDED DAILY WOUND CARE TO L UPPER ARM, L GREAT TOE, AND SACRUM PER MD ORDER.
[2020-04-16] MEDS: FAMOTIDINE 20 MG/2 ML VIAL IV SCH ×2 (05:50→18:00)
--- NOTE | 2020-04-16 07:18 | NUR ---
REPORT GIVEN TO DAYSHIFT NURSE. ALERT. NO SIGNS IV INFILTRATION. BED LOCKED AND IN LOW POSITION. CALL LIGHT WITHIN REACH. BED ALARM ACTIVATED.
[2020-04-16] MEDS: AMLODIPINE BESYLATE 5 MG TAB PO SCH (08:14)
[2020-04-16] MEDS: BALSAM PERU/CASTOR OIL 60 GM OINT...G. TP SCH (08:14)
[2020-04-16] MEDS: LIOTHYRONINE SODIUM 5 MCG TAB PO SCH (08:14)
[2020-04-16] MEDS: LEVOTHYROXINE SODIUM 75 MCG TAB PO SCH (08:14)
[2020-04-16] MEDS: ASPIRIN 81 MG ENTERIC COATED PO SCH (08:14)
--- NOTE | 2020-04-16 12:39 | Progress Note ---
DATE: 04/16/2020 SUBJECTIVE: The patient seen and evaluated. Available labs and notes reviewed. Discussed with the nurse. The patient remains on room air with a saturation of 96% to 100%. REVIEW OF SYSTEMS: No nausea, vomiting, fever, chills, chest pain, or shortness of breath. OBJECTIVE: VITAL SIGNS: Temperature 98.1, pulse 74, respirations 18, blood pressure 132/68. GENERAL: Alert and oriented, no acute distress. CV: S1, S2. CHEST: Equal expansion. Clear to auscultation. No acute distress. ABDOMEN: Soft, nontender. No distention. HEENT: Moist. No pallor. NECK: No JVD. MEDICATIONS: Medication list reviewed. From ID point of view, the patient is off antibiotics. LABORATORY STUDIES: White count of 9.33, hemoglobin of 13.1, platelets 264. Sodium 140, potassium 4.2, creatinine 0.79. Serology, coronavirus PCR detected 04/12. Blood culture and urine cultures are done and showed 10,000 to 50,000 mixed brayan, contamination. RADIOLOGY: The patient is status post Doppler of the carotid arteries, which showed possible significant stenosis bilaterally. Also had CT of the carotid showed severe stenosis of 80% on the left carotid bifurcation and moderate stenosis of the left cervical internal carotid arteries, 50% for the length of 1.4 cm and it also showed mild stenosis of approximately 40% at the region of the left subclavian artery due to calcified plaque. ASSESSMENT AND PLAN: 1. Coronavirus disease-19 positive patient without any shortness of breath or respiratory distress, remains on room air with a saturation about the high 90s. 2. Carotid stenosis. 3. Hyperlipidemia. 4. Hypertension. 5. Hypothyroidism. Continue to monitor. The patient off the antibiotics, remains on room air. Further management of this patient is based on daily findings on lab data, physical examination. Possible endarterectomy soon. Please refer to chart for more information. Discussed with Dr. Rose in detail. Dictated by Kang Saenz PA-C (Al) Milly Rose MD /MODL /[id number]
--- NOTE | 2020-04-16 14:00 | Progress Note ---
DATE: 04/16/2020 Cardiology Progress Note SUBJECTIVE: The patient was discussed with nursing staff. No chest pain or shortness of breath was reported. PHYSICAL EXAMINATION: VITAL SIGNS: Temperature 97.9 degrees, pulse 85, respiratory rate 18, blood pressure 156/62, and oxygen saturation 100% on room air. The patient was not examined due to isolation for COVID-19. CARDIAC MEDICATIONS: Amlodipine 7.5 mg p.o. daily, liothyronine 50 mcg p.o. daily, levothyroxine 100 mcg p.o. daily, atorvastatin 40 mg p.o. at bedtime, aspirin 81 mg p.o. daily. TELEMETRY: Personally reviewed and interpreted revealing normal sinus rhythm. IMPRESSION: 1. Syncope. 2. COVID-19. 3. Carotid artery stenosis. 4. Peripheral arterial disease. 5. Hypertension. 6. Hyperlipidemia. RECOMMENDATIONS: Monitor blood pressure response to increase in amlodipine. Continue statin therapy. Maintain the patient on Telemetry. Recommend the patient be discharged home for outpatient ischemic evaluation after she has recovered from COVID-19. Recommend carotid endarterectomy to after ischemic evaluation has been completed. Continue supportive care. Management for COVID-19 per Infectious Disease. Thank you for this consult. We will continue to follow. Jacqui Mitchell MD ABS/MODL /[id number] MTDD
--- NOTE | 2020-04-16 15:25 | NUR ---
PATIENT TRANSFERRED FROM UNIT AT APPROXIMATELY 1415 TO [facility] FOR MRI. PATIENT ARRIVED BACK TO BED 175 AT APPROXIMATELY 1500. AAOX3. ACYANOTIC. NO DISTRESS NOTED. CALL LIGHT IN REACH. SIDE RAILS UP X2. BED LOW.
--- NOTE | 2020-04-16 15:47 | Diagnostic Imaging Report ---
Exam: Brain MRI without IV contrast History: Dizziness, fall, COVID 19+ Comparison studies: Multiple head CTs which date to 12/16/2014, most recent of 04/12/2020. Technique: Sagittal and axial T2 FS, axial DWI, axial T2*GRE, axial T1 FLAIR and axial coronal T2 FLAIR. Intravenous contrast: None Findings: Scalp: Normal in signal. No masses. Bone marrow: Normal in signal intensity. Brain sulci: Mildly prominent. Ventricles: Mild compensatory dilatation. No hydrocephalus. Extra axial spaces: No mass, no fluid collection. Parenchyma: No mass, hemorrhage or acute ischemia. Scattered and confluent T2 FLAIR hyperintense foci in the supratentorial white matter are nonspecific but are most compatible with chronic microvascular ischemic changes. Suprasellar region: No abnormalities. Craniocervical junction: Patent foramen magnum. No Chiari malformation. Vessels: Normal flow-voids in the arteries and sinuses. Incidental findings: Bilateral intraocular lens or placement. IMPRESSION: 1. No acute intracranial abnormalities. 2. Mild generalized parenchymal volume loss and moderate chronic microvascular ischemic changes are unchanged from recent exams but have progressed since 2014. Signed by: Dr. Lemuel Martin M.D. on 04/16/2020 3:44 PM
[2020-04-16] MEDS: ATORVASTATIN 40 MG TAB PO SCH (20:27)
[2020-04-17] VITALS (7 sets, daily range): BP systolic 140–169; BP diastolic 70–78
--- NOTE | 2020-04-17 03:35 | NUR ---
DAILY WOUND CARE PROVIDED PER MD ORDER.
[2020-04-17] MEDS: FAMOTIDINE 20 MG/2 ML VIAL IV SCH ×2 (05:11→17:19)
--- NOTE | 2020-04-17 06:57 | NUR ---
REPORT GIVEN TO DAYSHIFT NURSE. ALERT AND ORIENTED. NO SIGNS IV INFILTRATION. BED LOCKED AND IN LOW POSITION. CALL LIGHT WITHIN REACH. BED ALARM ACTIVATED.
[2020-04-17] MEDS: ASPIRIN 81 MG ENTERIC COATED PO SCH (07:40)
[2020-04-17] MEDS: BALSAM PERU/CASTOR OIL 60 GM OINT...G. TP SCH (07:40)
[2020-04-17] MEDS: LIOTHYRONINE SODIUM 5 MCG TAB PO SCH (07:40)
[2020-04-17] MEDS: LEVOTHYROXINE SODIUM 75 MCG TAB PO SCH (07:40)
[2020-04-17] MEDS: AMLODIPINE BESYLATE 5 MG TAB PO SCH (10:00)
[2020-04-17 11:02] LABS: BASOPHILS # (AUTO) 0.1 (0.0-0.1); BASOPHILS % 0.6 % (0.0-1.0); EOSINOPHILS % 0.1 % (0.0-6.0); HEMATOCRIT 43.3 % (34.2-44.1); HEMOGLOBIN 13.4 g/dL (12.0-16.0); LYMPHOCYTES # (AUTO) 1.8 (1.0-3.2); LYMPHOCYTES % 18.6 % (18.0-39.1); MEAN CORPUSCULAR HEMOGLOBIN 29.8 pg (28-32); MEAN CORPUSCULAR HGB CONC 30.9 g/dL (31-35); MEAN CORPUSCULAR VOLUME 96.2 fL (81-99); MONOCYTES # (AUTO) 0.7 (0.2-0.8); MONOCYTES % 7.6 % (4.4-11.3); NEUTROPHILS # (AUTO) 6.9 (2.1-6.9); NEUTROPHILS % 72.7 % (38.7-80.0); PLATELET COUNT 287 x10e3/uL (140-360); RED CELL DISTRIBUTION WIDTH 13.4 % (11.7-14.4)
--- NOTE | 2020-04-17 11:17 | Diagnostic Imaging Report ---
EXAM: CHEST SINGLE (PORTABLE) DATE: 04/17/2020 10:35 AM INDICATION: Hypertension, fall COMPARISON: 03/17/2020 FINDINGS: The trachea is midline. The lungs are symmetrically expanded without evidence for large focal consolidation, pneumothorax, or significant pleural effusion. The cardiomediastinal silhouette is stable in appearance. The pulmonary vasculature is not engorged. Atherosclerotic calcifications are noted within the thoracic aorta. No acute osseous abnormality is identified. The surrounding soft tissues are unremarkable. IMPRESSION: No acute cardiopulmonary process or significant interval change identified from 03/17/2020. Signed by: Dr. Flo Cavazos MD on 04/17/2020 11:14 AM
[2020-04-17 11:27] LABS: ALBUMIN 3.2 g/dL (3.5-5.0); ALBUMIN/GLOBULIN RATIO 1.1 (0.8-2.0); ANION GAP 12.2 mmol/L (8-16); CALCIUM 9.4 mg/dL (8.4-10.2); CREATININE, SERUM 1.1 mg/dL (0.57-1.11); POTASSIUM 4.2 mmol/L (3.5-5.1)
--- NOTE | 2020-04-17 12:51 | Progress Note ---
DATE: 04/17/2020 Cardiology Progress Note SUBJECTIVE: The patient was discussed with nursing staff. No events were reported. The patient denies chest pain or shortness of breath. OBJECTIVE: VITAL SIGNS: Temperature 97.9 degrees, pulse 84, respiratory rate 18, blood pressure 151/77, and oxygen saturation 99% on room air. The patient was not examined due to isolation for COVID-19. CARDIAC MEDICATIONS: Amlodipine 7.5 mg p.o. daily, liothyronine 15 mcg p.o. daily, levothyroxine 100 mcg p.o. daily, aspirin 81 mg p.o. daily, and atorvastatin 40 mg p.o. at bedtime. LABORATORY DATA: Sodium 141, potassium 4.2, chloride 107, CO2 26, BUN 13, and creatinine 1.1. WBC 9.5, hemoglobin 13.4, hematocrit 43.3, and platelets 287. Telemetry was personally reviewed and interpreted, revealing normal sinus rhythm. IMPRESSION: 1. Syncope. 2. COVID-19. 3. Carotid artery stenosis. 4. Peripheral arterial disease. 5. Hypertension. 6. Hyperlipidemia. RECOMMENDATIONS: The patient remains hypertensive. We will increase amlodipine. Continue statin therapy and aspirin. Maintain the patient on telemetry. Recommend the patient be discharged home for ischemic evaluation as an outpatient after she has recovered from COVID-19. Recommend carotid endarterectomy after ischemic evaluation is completed. Continue supportive care. Management of COVID-19 per Infectious Disease. Thank you for this consult. We will continue to follow. Jacqui Mitchell MD ABS/MODL /[id number]
--- NOTE | 2020-04-17 14:37 | NUR ---
. Carotid artery stenosis. 4. Peripheral arterial disease. 5. Hypertension. 6. Hyperlipidemia. [id number]
--- NOTE | 2020-04-17 17:12 | Progress Note ---
DATE: 04/17/2020 SUBJECTIVE: Ms. Winston is doing well. REVIEW OF SYSTEMS: Totally negative. PHYSICAL EXAMINATION: GENERAL: Currently alert and oriented. Does not seem to be in acute distress. VITAL SIGNS: Stable, currently afebrile. HEENT: She is not icteric. NECK: Supple. CHEST: Clear. HEART: S1 and S2. No S3, S4, or murmur. ABDOMEN: Soft. IMPRESSION: COVID-19, stable. No need for treatment. She has more than 2 weeks, so she is not infectious at the present time. The patient could be in a droplet isolation just to be in safe side. We are awaiting for her surgery for atherosclerotic disease with affecting her carotid arteries. Hypertension, hyperlipidemia, stable otherwise . MD ABBIE Simeon/MODIva /[id number]
--- NOTE | 2020-04-17 19:10 | NUR ---
Report given to oncoming nurse of patient's status. Resting in bed. No s/s of acute distress noted. Side rails upx2, call light within reach.
[2020-04-17] MEDS: ATORVASTATIN 40 MG TAB PO SCH (20:01)
[2020-04-18] VITALS (8 sets, daily range): BP systolic 122–151; BP diastolic 68–81
--- NOTE | 2020-04-18 03:58 | NUR ---
DAILY WOUND CARE PROVIDED PER MD ORDER.
[2020-04-18] MEDS: FAMOTIDINE 20 MG/2 ML VIAL IV SCH ×2 (06:04→16:37)
--- NOTE | 2020-04-18 06:35 | NUR ---
SWELLING AND C/O PAIN TO R AC IV. IV D/C CATHETER TIP INTACT. CDI DRESSING APPLIED.
--- NOTE | 2020-04-18 06:50 | NUR ---
CHARGE NURSE NOTIFIED ABOUT NEED FOR NEW IV START. REPORTS "I WILL FIND SOMEBODY" TO PUT IN IV.
--- NOTE | 2020-04-18 07:11 | NUR ---
REPORT GIVEN TO DAYSHIFT NURSE. ALERT AND RESTING IN BED. BED LOCKED AND IN LOW POSITION. CALL LIGHT WITHIN REACH. BED ALARM ACTIVATED.
[2020-04-18] MEDS: AMLODIPINE BESYLATE 5 MG TAB PO SCH (08:27)
[2020-04-18] MEDS: ASPIRIN 81 MG ENTERIC COATED PO SCH (08:27)
[2020-04-18] MEDS: LIOTHYRONINE SODIUM 5 MCG TAB PO SCH (08:27)
[2020-04-18] MEDS: BALSAM PERU/CASTOR OIL 60 GM OINT...G. TP SCH (08:28)
[2020-04-18] MEDS: LEVOTHYROXINE SODIUM 75 MCG TAB PO SCH (08:28)
--- NOTE | 2020-04-18 14:41 | NUR ---
lawson Winston is doing well. REVIEW OF SYSTEMS: Totally negative. PHYSICAL EXAMINATION: GENERAL: Currently alert and oriented. Does not seem to be in acute distress. VITAL SIGNS: Stable, currently afebrile. HEENT: She is not icteric. NECK: Supple. CHEST: Clear. HEART: S1 and S2. No S3, S4, or murmur. ABDOMEN: Soft. IMPRESSION: COVID-19, stable. No need for treatment. She has more than 2 weeks, so she is not infectious at the present time. The patient could be in a droplet isolation just to be in safe side. We are awaiting for her surgery for atherosclerotic disease with affecting her carotid arteries. [id number]
--- NOTE | 2020-04-18 19:20 | NUR ---
Patient received received sitting up in bed. AAO x 3. Patient had no complaints of pain. Respirations even and non-labored. safety measures in place. Patient instructed to call for assistance when needed. Call light within reach.
[2020-04-18] MEDS: ATORVASTATIN 40 MG TAB PO SCH (21:17)
[2020-04-19] VITALS (8 sets, daily range): BP systolic 118–156; BP diastolic 64–76
[2020-04-19] MEDS: FAMOTIDINE 20 MG/2 ML VIAL IV SCH ×2 (05:14→17:05)
--- NOTE | 2020-04-19 06:51 | NUR ---
Walking rounds done. Patient resting comfortably. Shift report given to oncoming nurse.
[2020-04-19] MEDS: ASPIRIN 81 MG ENTERIC COATED PO SCH (07:32)
[2020-04-19] MEDS: LIOTHYRONINE SODIUM 5 MCG TAB PO SCH (07:32)
[2020-04-19] MEDS: LEVOTHYROXINE SODIUM 75 MCG TAB PO SCH (07:32)
[2020-04-19] MEDS: AMLODIPINE BESYLATE 5 MG TAB PO SCH (09:00)
--- NOTE | 2020-04-19 09:34 | Progress Note ---
DATE: 04/19/2020 SUBJECTIVE: The patient did very well overnight. No new complaints. Still has occasional dizziness at times. OBJECTIVE: VITAL SIGNS: Temperature 98.1, pulse 79, blood pressure 141/69, sats 98% on room air. GENERAL: She is in no apparent distress. CARDIOVASCULAR: Regular rate and rhythm. LUNGS: Clear to auscultation bilaterally. ABDOMEN: Good bowel sounds. Soft, nontender. EXTREMITIES: No clubbing or cyanosis. NEUROLOGIC: Nonfocal. ASSESSMENT AND PLAN: 1. Left carotid stenosis with 80% blockage. I had a long discussion with the patient yesterday as well as today that she does appear to have symptoms that could be may not be related to it, but anything over 70% even without symptoms, we recommend surgery and also that is most likely her dominant side of the brain that controls her speech and swallowing and she is right-hand dominant that 20% flow, she is at high risk for stroke despite medications and of course the complications of the surgery is more in her favor with the surgery than without the surgery and she of course wishes to proceed because she does not want to do with a stroke even though she may have complications from the surgery including a stroke. She states that she would take those odds and do the surgery, which she is scheduled for tomorrow at 10:[address] Al. 2. Hypertension. We will continue with current care and monitoring. 3. History of recent coronavirus disease 2019, but the patient is well over a month without any symptoms, so she is not currently actively infected with coronavirus disease 2019. 4. Hypothyroidism. Continue with her medication. 5. Hyperlipidemia. Continue with her Lipitor. Please see hospital chart for full details. MD FAITH Tracey/MODL /[id number]
[2020-04-19] MEDS: BALSAM PERU/CASTOR OIL 60 GM OINT...G. TP SCH (12:00)
--- NOTE | 2020-04-19 18:48 | NUR ---
Report given to oncoming nurse of patient's status. Resting in bed. AAOX4 to time, person, place, situation. Respirations even and unlabored. Side rails upx2, call light within reach.
--- NOTE | 2020-04-19 19:10 | NUR ---
Patient received sitting up in bed. AAO x 3. No acute distress noted. Fall precautions implemented. Call light within reach.
[2020-04-19] MEDS: ATORVASTATIN 40 MG TAB PO SCH (22:12)
[2020-04-20] VITALS (17 sets, daily range): BP systolic 134–164; BP diastolic 43–85
--- NOTE | 2020-04-20 01:52 | Progress Note ---
DATE: 04/19/2020 Cardiology Progress Note SUBJECTIVE: Discussed with nursing staff, no major events. OBJECTIVE: VITAL SIGNS: Temperature afebrile, pulse 85, respiratory rate 17, blood pressure 118/67, saturating 98% on room air. GENERAL: The patient in coronavirus isolation, not examined in person. INPATIENT MEDICATIONS: Reviewed. LABORATORY DATA: Reviewed. TELEMETRY DATA: Reviewed, shows normal sinus rhythm. ASSESSMENT/PLAN: 1. Syncope. 2. Coronavirus disease-2019. 3. Carotid artery stenosis. 4. Peripheral arterial disease. 5. Hypertension. 6. Hyperlipidemia. RECOMMENDATIONS: Doing well from cardiovascular standpoint. We will plan for outpatient stress testing and carotid endarterectomy when she recovers from COVID-19 pneumonia. We will continue to follow in the meantime. Thank you for this consult. We will continue to follow. MD WALLACE Negrete/MODL /[id number]
[2020-04-20] MEDS: FAMOTIDINE 20 MG/2 ML VIAL IV SCH ×2 (05:59→17:15)
[2020-04-20] MEDS: LIOTHYRONINE SODIUM 5 MCG TAB PO SCH (05:59)
[2020-04-20] MEDS: LEVOTHYROXINE SODIUM 75 MCG TAB PO SCH (06:00)
--- NOTE | 2020-04-20 06:48 | NUR ---
Wound dressing performed per MD's orders. Patient tolerated well.
[2020-04-20] MEDS ORDERED: HEPARIN SOD/SOD CHLORIDE 1,000 ML ONE (07:01)
--- NOTE | 2020-04-20 07:09 | NUR ---
infectious disease progress note Late entry for 04/19/2020 Patient seen and examined sure reviewed patient remained stable there is no new complaints. Discussed the plan with the patient prepared that level medical attending. Physical examination currently alert oriented as that seemed acute distress her vitals stable afebrile HEENT normal phallic that protect neck supple no JVD no factor thyromegaly chest clear bilateral heart S1 S2-S4 murmur abdomen soft but at present her sexual edema or rash. The patient go with 19 asymptomatic patient in theory could be off isolation. Patient records surgery tomorrow. The patient at length continue supportive care
--- NOTE | 2020-04-20 07:10 | NUR ---
infectious disease progress note Patient seen and examined chart reviewed every data reviewed events reviewed. Per physical examination alert oriented vitals stable afebrile HEENT not vertically supple chest clear bilateral heart was too stressful murmur abdomen soft but suppository just with edema skin or rash covid 19 recovered Can discontinue isolation Surgery for today Hormones okay with surgery s/p surgery seen in ICU LABS NOTED CONT ORDERED
[2020-04-20] MEDS ORDERED: MUPIROCIN 2% OINT 22 GM TUBE ONE (07:36)
[2020-04-20] MEDS ORDERED: LIDOCAINE HCL 1% 2 ML AMP ONE (07:36)
[2020-04-20] MEDS ORDERED: HEPARIN SOD (PORCINE) 1000 UNIT/ML 30ML ONE (07:36)
[2020-04-20] MEDS ORDERED: THROMBIN FOR SOLN 5,000 UNIT VIAL ONE ×2 (07:36→07:37)
[2020-04-20] MEDS ORDERED: SODIUM CHLORIDE 0.9% 500ML 500 ML ONE (07:36)
[2020-04-20] MEDS ORDERED: PROTAMINE SULFATE 10 MG/ML 5 ML VIAL ONE (07:37)
[2020-04-20] MEDS ORDERED: SODIUM CHLORIDE 0.9% 50ML 50 ML ONE (07:48)
--- NOTE | 2020-04-20 08:23 | NUR ---
Taken to procedure room via bed. AAOX4 to time, person, place, situation. Respirations even and unlabored. Tele #[phone]
[2020-04-20] MEDS: ASPIRIN 81 MG ENTERIC COATED PO SCH (09:00)
[2020-04-20] MEDS: AMLODIPINE BESYLATE 5 MG TAB PO SCH (09:00)
[2020-04-20] MEDS: BALSAM PERU/CASTOR OIL 60 GM OINT...G. TP SCH (09:00)
[2020-04-20] MEDS ORDERED: VANCOMYCIN 1GM/NS 250 ML 250 ML ONE (09:26)
[2020-04-20] MEDS ORDERED: HYDRALAZINE HCL 20 MG/ML VIAL ONE (11:38)
[2020-04-20] MEDS ORDERED: MORPHINE SULFATE 2 MG/ML SYR 1ML ONE (12:02)
[2020-04-20 12:04] LABS: BASOPHILS % 0.3 % (0.0-1.0); EOSINOPHILS % 0.1 % (0.0-6.0); HEMATOCRIT 37.6 % (34.2-44.1); LYMPHOCYTES % 7.6 % (18.0-39.1); MEAN CORPUSCULAR HEMOGLOBIN 29.9 pg (28-32); MEAN CORPUSCULAR HGB CONC 31.9 g/dL (31-35); MEAN CORPUSCULAR VOLUME 93.8 fL (81-99); MONOCYTES # (AUTO) 0.4 (0.2-0.8); MONOCYTES % 3.2 % (4.4-11.3); NEUTROPHILS # (AUTO) 12.1 (2.1-6.9); NEUTROPHILS % 88.2 % (38.7-80.0); PLATELET COUNT 266 x10e3/uL (140-360); RED BLOOD COUNT 4.01 x10e6/uL (3.6-5.1); RED CELL DISTRIBUTION WIDTH 13.3 % (11.7-14.4)
--- NOTE | 2020-04-20 12:20 | NUR ---
Patient was taken to ICU 196 after procedure. Report given to Vasyl Singer RN of patient's status.
[2020-04-20 12:26] LABS: ALBUMIN 2.8 g/dL (3.5-5.0); ALBUMIN/GLOBULIN RATIO 1.1 (0.8-2.0); ANION GAP 12.1 mmol/L (8-16); CALCIUM 8.6 mg/dL (8.4-10.2); CREATININE, SERUM 0.98 mg/dL (0.57-1.11); POTASSIUM 4.1 mmol/L (3.5-5.1)
[2020-04-20] MEDS: SODIUM CHLORIDE 0.9% 1000ML 1,000 ML IV SCH ×2 (13:06→20:09)
--- NOTE | 2020-04-20 13:19 | Progress Note ---
DATE: 04/18/2020 SUBJECTIVE: Mrs. Winston is doing good. There are no new complaints. Still waiting for surgery. REVIEW OF SYSTEMS: Otherwise negative. PHYSICAL EXAMINATION: GENERAL: Currently alert and oriented. Does not seem to be in acute distress. VITAL SIGNS: Stable, currently afebrile. HEENT: She is not icteric. NECK: Supple. CHEST: Clear. HEART: S1, S2. No S3, S4 or murmur. ABDOMEN: Soft ASSESSMENT: 1. Coronavirus disease-19, asymptomatic, not infectious 1-2 weeks. 2. Waiting for surgery, will follow. MD ABBIE Simeon/MODL /[id number]
[2020-04-20] MEDS ORDERED: ONDANSETRON HCL INJ 2MG/ML 2ML 2 MG/ML VIAL ONE (13:58)
[2020-04-20] MEDS ORDERED: DEXAMETHASONE SOD PHOS INJ 4 MG/ML VIAL ONE (13:58)
[2020-04-20] MEDS ORDERED: ACETAMINOPHEN 1000 MG/100 ML IV ONE (13:58)
[2020-04-20] MEDS ORDERED: NEOSTIGMINE 1 MG/ML 10ML VIAL ONE (13:58)
[2020-04-20] MEDS ORDERED: PROPOFOL IV EMULSION 10 MG/ML 20 ML VIAL ONE (13:58)
[2020-04-20] MEDS ORDERED: LIDOCAINE HCL 2% LOCAL INJ 5 ML SDV VIAL INJ ONE (13:58)
[2020-04-20] MEDS ORDERED: SEVOFLURANE INHAL SOLN 250 ML PEN BTL ONE (13:58)
[2020-04-20] MEDS ORDERED: ROCURONIUM BROMIDE 10 MG/ML 5ML VIAL IV ONE (13:58)
[2020-04-20] MEDS ORDERED: GLYCOPYRROLATE INJ 0.2 MG/ML VIAL ONE (13:58)
--- NOTE | 2020-04-20 17:06 | NUR ---
Nutrition Intervention Note RD Recommendation(s) for Physician: -Recommend advancing to heart healthy diet when medically appropriate - Recommend Ensure Enlive BID for added nutrition when diet is advanced - Recommend Kj BID as well as zinc and vitamin C to promote wound healing when diet is advanced Plan of Care: RD following, monitoring for tolerance and adequacy, oral supplement recommendation Nutrition reason for involvement: length of stay RD Assessment (04/20) Pt is a 79 year old female admitted with fall, left hip pain, and syncope. Pt is COVID-19+; therefore, unable to enter room due to isolation precautions. Attempted to call pt over the phone, but she did not answer. Pt is currently NPO. It is recorded that pt consumed 25-50% of meals yesterday and 0-75% of meals on 04/18. Pt had a carotid endarterectomy today and was taken to the ICU after procedure. Wound care note indicates pt has a stage 2 left hallux pressure ulcer. Per weight history in chart, pt weighed 129 lbs in March 2020 and 126 lbs in Nov 2019. Pt currently weighs 130 lbs per chart; therefore, weight loss does not appear evident. Will continue to monitor. Principal Problems/Diagnoses: fall, left hip pain, syncope PMH: Peripheral arterial disease, Moderate carotid artery disease, Hypertension, Hyperlipidemia. GI: soft, non-tender round abdomen, last recorded BM 04/18 Skin: red blanchable area to sacrum, left posterior arm abrasion, left hallux pressure ulcer stage 2, left anterior foot Labs: (04/20) Na 139, K 4.1, BUN 17, Cr 0.98, Glu 140, AST 248, ALT 91 Meds: pepcid, Lipitor, levothyroxine, antibiotic, zofran, colace Ht: 60.3 inches Wt: 130 lbs BMI: 25.1 kg/m2 IBW: 101.5 Malnutrition Evaluation (04/20/20) Unable to assess due to isolation precautions. Will re-evaluate at follow-up as appropriate. Nutrition Prescription (Diet Order): NPO Estimated Nutritional Needs: 4024-0920 calories/day (25-30 kcal/kg CBW) 70-90 g protein/day (1.2-1.5 g pro/kg CBW) Diet Adequacy: Not meeting calorie needs, Not meeting protein needs Tolerance: Pt is NPO Diet Education Needs Assessment: Diet education not indicated, patient on temporary/transition diet. Nutrition Care Level: low Nutrition Diagnosis: Increased nutrient needs related to increased demand for protein and kcal as evidenced by pressure ulcer. Goal: Patient will meet 75-100% of estimated needs by follow up Progress: N/A Interventions: -fat/cholesterol/sodium-modified diet, Commercial beverage, Multivitamin/mineral supplement therapy Monitoring/Evaluation: -Total energy intake, Total protein intake, , Modified diet, Liquid supplement, Weight change Signed: Stella Gonsalez RD, LD
--- NOTE | 2020-04-20 17:50 | Progress Note ---
DATE: 04/20/2020 Cardiology Progress Note SUBJECTIVE: No major events. OBJECTIVE: VITAL SIGNS: Temperature afebrile, pulse 88, respiratory rate 19, blood pressure 144/45, saturating 99% on nasal cannula. INPATIENT MEDICATIONS: Reviewed. LABORATORY DATA: Reviewed. TELEMETRY: Data showed normal sinus rhythm. ASSESSMENT AND PLAN: 1. Syncope. 2. Coronavirus-19 disease. 3. Carotid stenosis. 4. Peripheral arterial disease. 5. Hypertension. 6. Hyperlipidemia. Home, doing okay from cardiovascular standpoint. The patient to be returned to [facility]. We will follow up as an outpatient for outpatient stress testing and possible for carotid endarterectomy. Thank you for this consult. We will continue to follow. MD WALLACE Negrete/MODL /[id number]
[2020-04-20] MEDS ORDERED: FENTANYL CITRATE/PF 100MCG/2 ML INJ ONE (20:04)
[2020-04-20] MEDS: ATORVASTATIN 40 MG TAB PO SCH (20:09)
[2020-04-20] MEDS: MORPHINE SULFATE 2 MG/ML SYR 1ML IV PRN ×2 (21:02→23:54)
[2020-04-20] MEDS ORDERED: VANCOMYCIN 1GM/NS 250 ML 250 ML IV ONE (22:00)
[2020-04-20] MEDS: HYDRALAZINE HCL 20 MG/ML VIAL IV PRN (22:32)
[2020-04-21] VITALS (16 sets, daily range): BP systolic 91–168; BP diastolic 61–96
[2020-04-21] MEDS: MORPHINE SULFATE 2 MG/ML SYR 1ML IV PRN (03:40)
[2020-04-21 04:51] LABS: BASOPHILS % 0.1 % (0.0-1.0); HEMATOCRIT 37.8 % (34.2-44.1); HEMOGLOBIN 12.2 g/dL (12.0-16.0); LYMPHOCYTES # (AUTO) 0.5 (1.0-3.2); LYMPHOCYTES % 4.1 % (18.0-39.1); MEAN CORPUSCULAR HEMOGLOBIN 30.4 pg (28-32); MEAN CORPUSCULAR HGB CONC 32.3 g/dL (31-35); MEAN CORPUSCULAR VOLUME 94.3 fL (81-99); MONOCYTES % 5.6 % (4.4-11.3); NEUTROPHILS # (AUTO) 10.2 (2.1-6.9); NEUTROPHILS % 89.7 % (38.7-80.0); PLATELET COUNT 268 x10e3/uL (140-360); RED BLOOD COUNT 4.01 x10e6/uL (3.6-5.1); RED CELL DISTRIBUTION WIDTH 13.2 % (11.7-14.4)
[2020-04-21 04:52] LABS: MONOCYTES # (AUTO) 0.6 (0.2-0.8)
--- NOTE | 2020-04-21 04:54 | NUR ---
PATIENT'S ART-LINE REMOVED AND BANDAGED WITH COBAN PT WAS C/O PAIN TO THE SITE AND DR VEGA ORDERED IT OK TO BE REMOVED. PT LYING IN BED NOW WITH NO C/O PAIN AT SITE AND NO BLEEDING NOTED. WILL CONT TO MONITOR.
[2020-04-21 05:14] LABS: ALBUMIN 2.6 g/dL (3.5-5.0); ANION GAP 13.8 mmol/L (8-16); CALCIUM 8.4 mg/dL (8.4-10.2); CREATININE, SERUM 0.9 mg/dL (0.57-1.11); POTASSIUM 4.8 mmol/L (3.5-5.1)
[2020-04-21] MEDS: LIOTHYRONINE SODIUM 5 MCG TAB PO SCH (05:58)
[2020-04-21] MEDS: FAMOTIDINE 20 MG/2 ML VIAL IV SCH (05:58)
[2020-04-21] MEDS: LEVOTHYROXINE SODIUM 75 MCG TAB PO SCH (05:58)
[2020-04-21] MEDS: HYDROCODONE/APAP 5MG-325MG TAB PO PRN ×2 (05:59→10:22)
[2020-04-21] MEDS: AMLODIPINE BESYLATE 5 MG TAB PO SCH (08:46)
[2020-04-21] MEDS: ASPIRIN 81 MG ENTERIC COATED PO SCH (08:46)
[2020-04-21] MEDS ORDERED: ENOXAPARIN SOD INJ 40 MG/0.4 ML SYR SC SCH (09:00)
[2020-04-21] MEDS: BALSAM PERU/CASTOR OIL 60 GM OINT...G. TP SCH (10:22)
[2020-04-21] MEDS: HYDRALAZINE HCL 20 MG/ML VIAL IV PRN (12:21)
--- NOTE | 2020-04-21 13:55 | Consultation ---
DATE OF CONSULTATION: 04/21/2020 PULMONARY CRITICAL CARE CONSULTATION: CHIEF COMPLAINT: COVID-19 infection associated with symptomatic carotid artery disease. HISTORY OF PRESENT ILLNESS: The patient is a 79-year-old woman. She has a history of atherosclerosis that has affected her coronary arteries as well as her peripheral vascular system and her carotid arteries. She initially came in on the 13 after having syncope. She lost consciousness briefly. She did not have any residual neurological abnormalities. The patient also had a positive COVID-19 test. She had some loss of smell and taste, but did not have cough or fevers. She did not have any dyspnea. She went for a carotid endarterectomy today. A shunt was used along with Dacron graft. She tolerated the procedure well without complications. She is now in the intensive care unit. PAST SURGICAL HISTORY: 1. Status post nephrectomy. 2. Status post hysterectomy. 3. Status post cholecystectomy. 4. Prior hip surgery. 5. Recent carotid endarterectomy as noted above. PAST MEDICAL HISTORY: 1. Hypertension. 2. Peripheral arterial disease. ALLERGIES: SHE IS ALLERGIC TO CEFUROXIME WELL CODEINE, LEVAQUIN, AND SULFA DRUGS. REVIEW OF SYSTEMS: She does not have any headache. She has no neck pain. She is not complaining of any postoperative incisional pain. She has no chest pain. She has no dyspnea or cough. She has no abdominal pain. She has no nausea or vomiting. PHYSICAL EXAMINATION: VITAL SIGNS: The patient is afebrile. The blood pressure is 157/70, saturation is 97% on 2 L. HEENT: No facial swelling or erythema. CARDIAC: Regular rate and rhythm with normal S1, S2. LUNGS: Auscultation of lungs reveals rhonchorous breath sounds bilaterally. There is no wheezing. ABDOMEN: Soft, nontender. There is no rebound or guarding. EXTREMITIES: No leg edema or calf tenderness. There is no cyanosis or clubbing. SKIN: No rashes. NEUROLOGICAL: No focal abnormalities. LABORATORY DATA: BUN to creatinine ratio is normal. Other electrolytes are within normal limits. AST is 617 and ALT is 551. White blood cell count is 11.3 and hemoglobin is 12.2. The platelet count is 268. RADIOGRAPHIC DATA: Chest x-ray from the 17 shows no acute disease. IMPRESSION: 1. Coronavirus disease-19 infection with minimal viral pneumonia. 2. Symptomatic carotid artery stenosis, requiring carotid endarterectomy. 3. Hypertension. 4. Peripheral vascular disease. PLAN: 1. The patient is stable for discharge. 2. She should continue routine postoperative care and follow up with Dr. Al. 3. The patient should be on high dose aspirin for one month to prevent any thrombosis related to her COVID infection. MD SIMONA Mejia/MODL /[id number]
--- NOTE | 2020-04-21 16:39 | NUR ---
Patient was d/c home with wound care instruction, new prescription and was taken to the car by RN. Patient picked up patient and went home.
--- NOTE | 2020-05-16 13:45 | Discharge Summary ---
DISCHARGE DIAGNOSES: 1. Carotid stenosis, status post left carotid endarterectomy. 2. Hypertension. HISTORY OF PRESENT ILLNESS AND HOSPITAL COURSE: See hospital chart for full details. The patient is a lady, who presented with some dizziness. She was found to have carotid study is severe left carotid stenosis associated with symptoms, so therefore patient was seen by Dr. Al, who then performed a left carotid endarterectomy without complication. Postoperatively, she did well who is able to be transferred home, to follow up in 1 to 2 weeks with me as well as with Dr. Al. Please see hospital chart for full details. MD FAITH Tracey/MICHELLE /[id number]
--- NOTE | 2020-06-25 14:05 | Operative Report ---
DATE OF PROCEDURE: 04/20/2020 SURGEON: Judah Al MD AED TRAINER: Daniel. PREOPERATIVE DIAGNOSIS: Severe left carotid stenosis. POSTOPERATIVE DIAGNOSIS: Severe left carotid stenosis. TITLE OF OPERATION: Left carotid endarterectomy. DESCRIPTION OF OPERATION: After the satisfactory accomplishment of general anesthesia, the patient's left neck was prepped and draped in sterile fashion. A standard left carotid incision was made along the anterior border of the sternomastoid muscle. The incision was carried down through the subcutaneous tissues to expose the left common carotid artery. The vessel was dissected free from the surrounding tissues and looped with a vessel loop. The dissection was carried distally to expose the internal carotid artery and the external carotid artery and its branches. Care was taken to identify and preserve all nerve structures in the region. Systemic heparin was given through a central vein cannula for the purposes of anticoagulation. The common, external, and internal carotid arteries were briefly crossclamped. A long incision was made in the common carotid artery and carried distally through the bifurcation and well up into the internal carotid artery. A severely obstructing atherosclerotic plaque was quickly encounter. The plaque was removed using standard endarterectomy techniques. Following this, an indwelling shunt was placed in the common carotid artery proximally and the internal carotid artery distally, thereby re-establishing blood flow to the left side of the brain for the remainder of the case. The surface of the vessel was then smoothed and all loose debris was carefully removed. Heparinized saline flushes were routinely employed. A previously constructed pericardial patch was then brought into the operative field and used to close the arteriotomy site. Running 7-0 Prolene was used for this patch closure. Prior to completing the closure, the shunt was removed and the vessel was flushed free from all air and debris. Once the sutures were tied, excellent pulse was felt within the patch area and beyond. Protamine was given to counteract the effects of the heparin. All bleeding points were cauterized, ligated or oversewn. The wound was irrigated with antibiotic solution and closed in layers with interrupted 2-0 Vicryl for the deep tissues and Monocryl subcuticular stitches for the skin. The patient tolerated the procedure well and was returned to the Intensive Care Unit in good condition. MD GENIE Lora/MICHELLE Grossman: 06/25/2020 12:22:20 /[id number]
== END 2020-04-21 16:34 | disposition home or self-care (01) | DRG 37 ==
LOC: ER 12:41 → ERHOLD 17:17 → MED/SURG 19:47 → IMCU 04-13 10:12 → OBSVTOIN 04-14 14:04 → ICU 04-20 12:30
PROVIDERS: ADMIT Internal Medicine; ATTEND Internal Medicine
PROC: 03UJ0JZ Supplement Left Common Carotid Artery with Synthetic Substitute, Open Approach (ICD-10-PCS; 2020-04-20)
PROC: 03UL0JZ Supplement Left Internal Carotid Artery with Synthetic Substitute, Open Approach (ICD-10-PCS; 2020-04-20)
PROC: 03CL0ZZ Extirpation of Matter from Left Internal Carotid Artery, Open Approach (ICD-10-PCS; principal; 2020-04-20 08:30)
DX: I65.22 Occlusion and stenosis of left carotid artery (principal); U07.1 COVID-19; J12.9 Viral pneumonia, unspecified; R55 Syncope and collapse; W01.0XXA Fall on same level from slipping, tripping and stumbling without subsequent striking against object, initial encounter; Y93.89 Activity, other specified; Y92.017 Garden or yard in single-family (private) house as the place of occurrence of the external cause; E03.9 Hypothyroidism, unspecified; E78.5 Hyperlipidemia, unspecified; I12.9 Hypertensive chronic kidney disease with stage 1 through stage 4 chronic kidney disease, or unspecified chronic kidney disease; N18.3 Chronic kidney disease, stage 3 (moderate)
CPT/HCPCS: 36415; 70450; 70498; 70551; 71045; 72125; 80053; 80061; 81001; 82550; 82553; 82948; 83735; 83880; 84484; 85025; 85610; 85730; 86850; 86900; 87086; 88304; 88311; 93005; 93880; 96360; 99284; C1768; G0378; J0360; J1100; J1644; J1650; J2001; J2270; J2405; J2710; J2720; J3010; J3370; J7030; J7040; J7050; Q9967; U0002

== ENCOUNTER 2020-07-05 09:02 | Emergency (ER) | payer MEDICARE, OTHER ==
[~2020-07-05] VITALS: Ht 160 cm; Wt 65.8 kg
[2020-07-05] MEDS ORDERED: SODIUM CHLORIDE 0.9% 1000ML 1,000 ML IV STA (09:20)
[2020-07-05] MEDS ORDERED: ONDANSETRON HCL INJ 2MG/ML 2ML 2 MG/ML VIAL IV STA (09:20)
[2020-07-05] MEDS ORDERED: DIAZEPAM 2 MG TAB PO ONE (09:30)
[2020-07-05 09:38] LABS: BASOPHILS # (AUTO) 0.1 (0.0-0.1); BASOPHILS % 0.8 % (0.0-1.0); EOSINOPHILS % 0.4 % (0.0-6.0); HEMATOCRIT 47.4 % (34.2-44.1); HEMOGLOBIN 15.1 g/dL (12.0-16.0); LYMPHOCYTES % 13.2 % (18.0-39.1); MEAN CORPUSCULAR HEMOGLOBIN 29.8 pg (28-32); MEAN CORPUSCULAR HGB CONC 31.9 g/dL (31-35); MEAN CORPUSCULAR VOLUME 93.7 fL (81-99); MONOCYTES # (AUTO) 0.6 (0.2-0.8); MONOCYTES % 7.8 % (4.4-11.3); NEUTROPHILS # (AUTO) 5.6 (2.1-6.9); NEUTROPHILS % 77.4 % (38.7-80.0); PLATELET COUNT 283 x10e3/uL (140-360); RED BLOOD COUNT 5.06 x10e6/uL (3.6-5.1); RED CELL DISTRIBUTION WIDTH 13.1 % (11.7-14.4)
[2020-07-05 09:55] LABS: INR 0.85
[2020-07-05 09:56] LABS: PARTIAL THROMBOPLASTIN TIME 25.6 seconds (23.8-35.5)
[2020-07-05 10:06] LABS: ALBUMIN 3.4 g/dL (3.5-5.0); ANION GAP 15.7 mmol/L (8-16); CREATININE, SERUM 1.18 mg/dL (0.57-1.11); MAGNESIUM 1.8 MG/DL (1.3-2.1); POTASSIUM 3.7 mmol/L (3.5-5.1)
[2020-07-05 10:12] LABS: CREATINE KINASE MB 1.3 ng/mL (0-5.0)
--- NOTE | 2020-07-05 10:14 | Diagnostic Imaging Report ---
EXAMINATION: CHEST SINGLE (PORTABLE) INDICATION: BILAT SHOULDER PAIN ? CP COMPARISON: Chest radiograph 04-17-2020. FINDINGS: TUBES and LINES: None. LUNGS: Lungs are well inflated. There is no evidence of pneumonia or pulmonary edema. PLEURA: No pleural effusion or pneumothorax. HEART AND MEDIASTINUM: The cardiomediastinal silhouette is unremarkable. There are atherosclerotic calcifications within the aorta. BONES AND SOFT TISSUES: No acute osseous lesion. Soft tissues are unremarkable. UPPER ABDOMEN: No free air under the diaphragm. IMPRESSION: No acute thoracic abnormality. Signed by: Dr. Felicia De La Rosa MD on 07/05/2020 10:11 AM
[2020-07-05 10:24] LABS: CLARITY,URINE CLEAR (CLEAR); COLOR,URINE YELLOW (YELLOW); KETONES,URINE TRACE (NEGATIVE); LEUKOCYTE ESTERASE ,URINE SMALL (NEGATIVE); NITRITE,URINE NEGATIVE (NEGATIVE); PROTEIN,URINE DIPSTICK 2+ (NEGATIVE)
[2020-07-05 10:25] LABS: BILIRUBIN,URINE NEGATIVE (NEGATIVE); URINE UROBILINOGEN 0.2 mg/dL (0.2 - 1)
[2020-07-05 10:40] LABS: BACTERIA,URINE MANY /HPF; EPITHELIAL CELLS,URINE MODERATE /LPF; MUCUS,URINE FEW (RARE); WBC,URINE (MAN) >50 /HPF (0-5)
--- NOTE | 2020-07-05 10:53 | Emergency Department Note ---
History of Present Illnes History of Present Illness Chief Complaint: Extremity Trauma/Pain History of Present Illness This is a 79 year old female pt came in POV for c/o right shoulder pain and headache, pt states that she was watching TV on Monday night when her right shoulder and right arm started hurting, denies any trauma, neck and bilateral shoulders tender to touch, pt is neurologically intact. Historian: Patient Arrival Mode: Car Senior Packaging Engineer Required: No Onset (how long ago): day(s) (2) Location: BILAT SHOULDERS, NECK, AND HEAD Quality: PAIN Radiation: Reports non-radiation Severity: moderate Onset quality: gradual Timing of current episode: constant Progression: worsening Chronicity: new Context: Denies recent illness Relieving factors: none Exacerbating factors: none Associated symptoms: Reports denies other symptoms; Denies shortness of breath, Denies weakness Past Medical/Family History Physician Review I have reviewed the patient's past medical and family history. Any updates have been documented here. Past Medical History Recent Fever: No Clinical Suspicion of Infectio: No New/Unexplained Change in Ment: No Past Medical History: Hypertension, Hypothyroidism, Hyperlipedemia Other Medical History: PVD Past Surgical History: Cholecysctectomy, Hysterectomy Other Surgery: Left Hip Surgery, Right Nephrectomy 2016, Stents 2018, Tonsillectomy 1947 Social History Smoking Cessation: Never Smoker Counseling Performed: No Alcohol Use: None Any Illegal Drug Use: No TB Exposure/Symptoms: No Physically hurt or threatened: No Family History Family history of heart diseas: No Other Last Tetanus: 2017 Any Pre-Existing Lines (PICC,: No Review of Systems Review of Systems Constitutional: Reports no symptoms EENTM: Reports no symptoms Cardiovascular: Reports no symptoms Respiratory: Reports no symptoms Gastrointestinal: Reports no symptoms Genitourinary: Reports no symptoms Musculoskeletal: Reports muscle pain, Reports muscle stiffness, Reports neck pain Integumentary: Reports no symptoms Neurological: Reports headache; Denies paresthesia, Denies weakness Psychological: Reports no symptoms Endocrine: Reports no symptoms Hematological/Lymphatic: Reports no symptoms Physical Exam Related Data Allergies: Coded Allergies: levofloxacin (Verified Allergy, Severe, Unconscious, 10/16/18) promethazine (Verified Allergy, Severe, UNCONCIOUS, 10/16/18) labetalol (Verified Allergy, Mild, SEVERE WEAKNESS, 10/16/18) cefuroxime (Verified Allergy, Unknown, 03/17/20) sulfamethoxazole (Unverified Adverse Reaction, Severe, NONAROUSABLE, 10/16/18) PER PATIENT trimethoprim (Unverified Adverse Reaction, Severe, NONAROUSABLE, 10/16/18) PER PATIENT codeine (Verified Adverse Reaction, Intermediate, HALLUCINATIONS, 10/16/18) Triage Vital Signs Vital Signs Date Time Temp Pulse Resp B/P (MAP) Pulse Ox O2 Delivery O2 Flow Rate FiO2 07/05/20 09:12 97.9 126 20 165/80 99 Vital signs reviewed: Yes Physical Exam CONSTITUTIONAL Constitutional: Present well-developed, Present well-nourished HENT HENT: Present normocephalic, Present atraumatic, Present oropharynx clear /moist, Present nose normal HENT L/R: Present left ext ear normal, Present right ext ear normal EYES Eyes: Reports PERRL, Reports conjunctivae normal NECK Neck: Present ROM normal, Present supple, Present other (BILATERAL TRAPEZIUS MUSCLE TENDERNESS/SPASM UP TO INSERTION AT OCCIPUT BILATERALLY, NO MIDLINE TENDERNESS); Absent cervical adenopathy, Absent carotid bruit PULMONARY Pulmonary: Present effort normal, Present breath sounds normal CARDIOVASCULAR Cardiovascular: Present regular rhythm, Present heart sounds normal, Present capillary refill normal, Present normal rate GASTROINTESTINAL Abdominal: Present soft, Present nontender, Present bowel sounds normal GENITOURINARY Genitourinary: Present exam deferred SKIN Skin: Present warm, Present dry MUSCULOSKELETAL Musculoskeletal: Present ROM normal, Present other (NO BONY TENDERNESS, FULL ROM NECK & BILAT SHOULDERS) NEUROLOGICAL Neurological: Present alert, Present oriented x 3, Present no gross motor or sensory deficits PSYCHOLOGICAL Psychological: Present mood/affect normal, Present judgement normal Results Laboratory Result Diagram: 07/05/2092407/05/20924 Laboratory Laboratory Tests Test 07/05/20 09:25 White Blood Count 7.28 x10e3/uL (4.8-10.8) Red Blood Count 5.06 x10e6/uL (3.6-5.1) Hemoglobin 15.1 g/dL (12.0-16.0) Hematocrit 47.4 % (34.2-44.1) Mean Corpuscular Volume 93.7 fL (81-99) Mean Corpuscular Hemoglobin 29.8 pg (28-32) Mean Corpuscular Hemoglobin Concent 31.9 g/dL (31-35) Red Cell Distribution Width 13.1 % (11.7-14.4) Platelet Count 283 x10e3/uL (140-360) Neutrophils (%) (Auto) 77.4 % (38.7-80.0) Lymphocytes (%) (Auto) 13.2 % (18.0-39.1) Monocytes (%) (Auto) 7.8 % (4.4-11.3) Eosinophils (%) (Auto) 0.4 % (0.0-6.0) Basophils (%) (Auto) 0.8 % (0.0-1.0) Neutrophils # (Auto) 5.6 (2.1-6.9) Lymphocytes # (Auto) 1.0 (1.0-3.2) Monocytes # (Auto) 0.6 (0.2-0.8) Eosinophils # (Auto) 0.0 (0.0-0.4) Basophils # (Auto) 0.1 (0.0-0.1) Absolute Immature Granulocyte (auto 0.03 x10e3/uL (0-0.1) Prothrombin Time 12.0 seconds (11.9-14.5) Prothromb Time International Ratio 0.85 Activated Partial Thromboplast Time 25.6 seconds (23.8-35.5) Urine Color Yellow (YELLOW) Urine Clarity Clear (CLEAR) Urine pH 5.5 (5 - 7) Urine Specific [place] >=1.030 (1.010-1.025) Urine Protein 2+ (NEGATIVE) Urine Glucose (UA) Negative (NEGATIVE) Urine Ketones Trace (NEGATIVE) Urine Blood Negative (NEGATIVE) Urine Nitrite Negative (NEGATIVE) Urine Bilirubin Negative (NEGATIVE) Urine Urobilinogen 0.2 mg/dL (0.2 - 1) Urine Leukocyte Esterase Small (NEGATIVE) Urine RBC 6-10 /HPF (0-5) Urine WBC >50 /HPF (0-5) Urine Epithelial Cells Moderate /LPF (NONE) Urine Bacteria Many /HPF (NONE) Urine Hyaline Casts 2-5 (0-1) Urine Mucus Few (RARE) Sodium Level 141 mmol/L (136-145) Potassium Level 3.7 mmol/L (3.5-5.1) Chloride Level 104 mmol/L (98-107) Carbon Dioxide Level 25 mmol/L (22-29) Anion Gap 15.7 mmol/L (8-16) Blood Urea Nitrogen 19 mg/dL (7-26) Creatinine 1.18 mg/dL (0.57-1.11) Estimat Glomerular Filtration Rate 44 ML/MIN (60-) BUN/Creatinine Ratio 16 (6-25) Glucose Level 116 mg/dL (74-118) Calcium Level 10.0 mg/dL (8.4-10.2) Magnesium Level 1.8 MG/DL (1.3-2.1) Total Bilirubin 0.3 mg/dL (0.2-1.2) Aspartate Amino Transf (AST/SGOT) 25 IU/L (5-34) Alanine Aminotransferase (ALT/SGPT) 24 IU/L (0-55) Alkaline Phosphatase 86 IU/L (40-150) Creatine Kinase 48 IU/L (29-168) Creatine Kinase MB 1.30 ng/mL (0-5.0) Troponin I 0.016 ng/mL (0-0.300) Total Protein 6.9 g/dL (6.5-8.1) Albumin 3.4 g/dL (3.5-5.0) Globulin 3.5 g/dL (2.3-3.5) Albumin/Globulin Ratio 1.0 (0.8-2.0) Laboratory Tests Test 07/05/20 09:25 White Blood Count 7.28 x10e3/uL (4.8-10.8) Red Blood Count 5.06 x10e6/uL (3.6-5.1) Hemoglobin 15.1 g/dL (12.0-16.0) Hematocrit 47.4 % (34.2-44.1) Mean Corpuscular Volume 93.7 fL (81-99) Mean Corpuscular Hemoglobin 29.8 pg (28-32) Mean Corpuscular Hemoglobin Concent 31.9 g/dL (31-35) Red Cell Distribution Width 13.1 % (11.7-14.4) Platelet Count 283 x10e3/uL (140-360) Neutrophils (%) (Auto) 77.4 % (38.7-80.0) Lymphocytes (%) (Auto) 13.2 % (18.0-39.1) Monocytes (%) (Auto) 7.8 % (4.4-11.3) Eosinophils (%) (Auto) 0.4 % (0.0-6.0) Basophils (%) (Auto) 0.8 % (0.0-1.0) Neutrophils # (Auto) 5.6 (2.1-6.9) Lymphocytes # (Auto) 1.0 (1.0-3.2) Monocytes # (Auto) 0.6 (0.2-0.8) Eosinophils # (Auto) 0.0 (0.0-0.4) Basophils # (Auto) 0.1 (0.0-0.1) Absolute Immature Granulocyte (auto 0.03 x10e3/uL (0-0.1) Prothrombin Time 12.0 seconds (11.9-14.5) Prothromb Time International Ratio 0.85 Activated Partial Thromboplast Time 25.6 seconds (23.8-35.5) Urine Color Yellow (YELLOW) Urine Clarity Clear (CLEAR) Urine pH 5.5 (5 - 7) Urine Specific [place] >=1.030 (1.010-1.025) Urine Protein 2+ (NEGATIVE) Urine Glucose (UA) Negative (NEGATIVE) Urine Ketones Trace (NEGATIVE) Urine Blood Negative (NEGATIVE) Urine Nitrite Negative (NEGATIVE) Urine Bilirubin Negative (NEGATIVE) Urine Urobilinogen 0.2 mg/dL (0.2 - 1) Urine Leukocyte Esterase Small (NEGATIVE) Sodium Level 141 mmol/L (136-145) Potassium Level 3.7 mmol/L (3.5-5.1) Chloride Level 104 mmol/L (98-107) Carbon Dioxide Level 25 mmol/L (22-29) Anion Gap 15.7 mmol/L (8-16) Blood Urea Nitrogen 19 mg/dL (7-26) Creatinine 1.18 mg/dL (0.57-1.11) Estimat Glomerular Filtration Rate 44 ML/MIN (60-) BUN/Creatinine Ratio 16 (6-25) Glucose Level 116 mg/dL (74-118) Calcium Level 10.0 mg/dL (8.4-10.2) Magnesium Level 1.8 MG/DL (1.3-2.1) Total Bilirubin 0.3 mg/dL (0.2-1.2) Aspartate Amino Transf (AST/SGOT) 25 IU/L (5-34) Alanine Aminotransferase (ALT/SGPT) 24 IU/L (0-55) Alkaline Phosphatase 86 IU/L (40-150) Creatine Kinase 48 IU/L (29-168) Creatine Kinase MB 1.30 ng/mL (0-5.0) Troponin I 0.016 ng/mL (0-0.300) Total Protein 6.9 g/dL (6.5-8.1) Albumin 3.4 g/dL (3.5-5.0) Globulin 3.5 g/dL (2.3-3.5) Albumin/Globulin Ratio 1.0 (0.8-2.0) Lab results reviewed: Yes Imaging Imaging results reviewed: Yes Procedures 12 Lead ECG Interpretation ECG Interpretation : ECG: ECG 1 Senior Packaging Engineer: Interpreted by ED physician Date: Jul 05, 2020 Time: 09:21 Rhythm: sinus rhythm Rate: normal BPM: 100 QRS axis: normal ST segments normal: Yes T waves normal: Yes Clinical Impression: normal ECG Assessment & Plan Medical Decision Making MDM 79 Y/O WITH NECK PAIN, HEADACHE (ON ASA/PLAVIX) , BILATERAL SHOULDER PAIN, EXAM MORE C/W MUSCLE SPASM - CBC, CHEM, ECG, CARDIACS, CT BRAIN/C-SPINE, UA - EVAL FOR MUSCLE SPASM, CEREBRAL BLEED, CERVICAL DJD, STEMI/NSTEMI, ELECTROLYTE ABNL, RENAL INSUFF, UTI. CHECKED BILAT UE BP'S AND THEY ARE ESSENTIALLY THE SAME Reassessment Reassessment PT IMPROVED WITH VALIUM, FEELS MUCH BETTER. DC HOME, MACROBID 100 BID X 10 DAYS, ZOFRAN ODT, VALIUM 2 MG TID PRN MUSCLE SPASM, F/U PCP AGRY Assessment & Plan Final Impression: (1) UTI (urinary tract infection) (2) Muscle spasm Depart Disposition: HOME, SELF-CARE Last Vital Signs Date Time Temp Pulse Resp B/P (MAP) Pulse Ox O2 Delivery O2 Flow Rate FiO2 07/05/20 09:12 97.9 126 20 165/80 99 Home Meds Reported Medications Calcium Carbonate (TUMS) 300 Mg Tab.chew, 1 EA PO Q6H PRN for INDIGESTION 03/17/20 Amlodipine Besylate (AMLODIPINE BESYLATE) 5 Mg Tablet, 5 MG PO DAILY, #30 TAB 10/16/18 Clopidogrel Bisulfate (CLOPIDOGREL) 75 Mg Tablet, 75 MG PO DAILY, #30 TAB 10/16/18 Aspirin (ASPIR 81) 81 Mg Tablet.dr, 81 MG PO HS 01/14/18 Calcium Carbonate/Vitamin D3 (OS-CLARI 500+D TABLET) 1 Each Tablet, 500 MG PO BID, #30 TAB 07/27/14 Lovastatin (LOVASTATIN) 40 Mg Tablet, 40 MG PO HS 07/27/14 Liothyronine Sodium (LIOTHYRONINE SODIUM) 5 Mcg Tablet, 15 MCG PO DAILY 07/27/14 Levothyroxine Sodium (LEVOTHYROXINE SODIUM) 75 Mcg Tablet, 100 MCG PO DAILY, #30 TAB 07/27/14 Medications in the ED Ondansetron HCl 4 mg ONCE STAT IV Last administered on 07/05/20at 09:41; Admin Dose 4 MG; Start 07/05/20 at 09:20; Stop 07/05/20 at 09:27; Status DC Sodium Chloride 1,000 ml @ 0 mls/hr Q0M STAT IV Last administered on 07/05/20at 09:41; Admin Dose 1,000 MLS/HR; Start 07/05/20 at 09:20; Stop 07/05/20 at 09:27; Status DC Diazepam 2 mg ONCE ONCE PO Last administered on 07/05/20at 09:41; Admin Dose 2 MG; Start 07/05/20 at 09:30; Stop 07/05/20 at 09:31; Status DC JIM CORDERO MD Jul 05, 2020 10:53
--- NOTE | 2020-07-05 11:42 | Diagnostic Imaging Report ---
Examination: CT BRAIN WO History:^N ^HEADACHE ON ASA/PLAVIX, NECK PAIN ^[id number] ^[id number] Comparison studies:Head CT dated March 26, 2018 and April 12, 2020. Technique: Transaxial noncontrast images from the skull base through the vertex were obtained. Sagittal and coronal reformatted images were done. Dose modulation, iterative reconstruction, and/or weight based adjustment of the mA/kV was utilized to reduce the radiation dose to as low as reasonably achievable. Findings: Scalp: No abnormalities. Bones: Intact. No fractures. No blastic or lytic lesions. Brain sulci: Mild volume loss for patient's age. Ventricles: No hydrocephalus. Extra-axial space: No abnormalities. Parenchyma: There are patchy and confluent areas of low-attenuation within subcortical and periventricular white matter, nonspecific, but could represent microvascular ischemic disease, unchanged. No masses, hemorrhage, or acute or chronic cortical based vascular insults. Suprasellar region: No abnormalities. Craniocervical junction: The foramen magnum is patent. No Chiari one malformation. Incidental findings: Atherosclerotic calcification of the cavernous and supraclinoid internal carotid and V4 segments of the bilateral vertebral arteries. Impression: 1. No acute intracranial finding when compared head CT dated April 12, 2020. 2. Unchanged chronic microvascular ischemic change and volume loss. Signed by: Dr. Christi Mleéndez M.D. on 07/05/2020 11:38 AM
--- NOTE | 2020-07-05 11:47 | Diagnostic Imaging Report ---
Examination: CT CERVICAL SPINE WO CONTRAST HISTORY:^N ^HEADACHE ON ASA/PLAVIX, NECK PAIN ^[id number] ^[id number]. COMPARISON:March 26, 2018 and April 02, 2020 cervical spine CTs. TECHNIQUE: Multidetector helical axial images were obtained without contrast from the foramen magnum to T1. Coronal and sagittal reformatted images were done. Bone and soft tissue windows were evaluated. Dose modulation, iterative reconstruction, and/or weight based adjustment of the mA/kV was utilized to reduce the radiation dose to as low as reasonably achievable. FINDINGS: Alignment:Normal alignment with reversal of normal lordosis centered at C4-C5. Vertebrae: Normal height and density. No acute fracture, infection or neoplasm. Disc space heights: Severe height loss from C4-C7. Caliber of spinal canal: Developmentally normal. Posterior fossa and craniocervical junction: Foramen magnum patent. No Chiari 1 malformation. Soft tissues: Atherosclerotic calcification of the bilateral carotid arteries. Degenerative changes: No disc herniation or canal stenosis. Visualized lung apices: Biapical pleural thickening. IMPRESSION: No new acute abnormalities when compared to prior dated April 02, 2020. Signed by: Dr. Christi Meléndez M.D. on 07/05/2020 11:43 AM
[2020-07-05] MEDS ORDERED: PIPER-TAZ 3.375 GM 50 ML IV ONE (12:00)
[2020-07-05 12:34] VITALS: BP 134/64
== END 2020-07-05 13:25 | disposition home or self-care (01) ==
LOC: ER 09:15
DX: M25.511 Pain in right shoulder (principal); M25.512 Pain in left shoulder; M62.838 Other muscle spasm; N39.0 Urinary tract infection, site not specified; R51.9 Headache, unspecified
CPT/HCPCS: 36415; 70450; 71045; 72125; 80053; 81001; 82550; 82553; 83735; 84484; 85025; 85610; 85730; 87086; 87186; 93005; 99284; J2405; J2543; J7030

== ENCOUNTER 2020-07-06 05:25 | Inpatient (IN) | payer MEDICARE, OTHER ==
[~2020-07-06] VITALS: Ht 160 cm; Wt 67.7 kg
[2020-07-06] MEDS ORDERED: ACETAMINOPHEN 325 MG TAB PO STA (05:30)
[2020-07-06] MEDS ORDERED: SODIUM CHLORIDE 0.9% 1000ML 1,000 ML IV STA (05:31)
[2020-07-06] MEDS ORDERED: ASPIRIN 81 MG CHEW TAB PO ONE (05:45)
[2020-07-06] MEDS ORDERED: ONDANSETRON HCL INJ 2MG/ML 2ML 2 MG/ML VIAL IV PRN (05:45)
[2020-07-06] MEDS ORDERED: PIPER-TAZ 3.375 GM 50 ML IV ONE (05:45)
[2020-07-06 05:52] LABS: BASOPHILS % 0.1 % (0.0-1.0); EOSINOPHILS % 0.3 % (0.0-6.0); HEMATOCRIT 44.9 % (34.2-44.1); HEMOGLOBIN 13.8 g/dL (12.0-16.0); LYMPHOCYTES # (AUTO) 0.4 (1.0-3.2); LYMPHOCYTES % 4.2 % (18.0-39.1); MEAN CORPUSCULAR HEMOGLOBIN 29.7 pg (28-32); MEAN CORPUSCULAR HGB CONC 30.7 g/dL (31-35); MEAN CORPUSCULAR VOLUME 96.6 fL (81-99); MONOCYTES # (AUTO) 0.3 (0.2-0.8); MONOCYTES % 2.5 % (4.4-11.3); NEUTROPHILS # (AUTO) 9.7 (2.1-6.9); NEUTROPHILS % 91.9 % (38.7-80.0); PLATELET COUNT 214 x10e3/uL (140-360); RED BLOOD COUNT 4.65 x10e6/uL (3.6-5.1); RED CELL DISTRIBUTION WIDTH 13.1 % (11.7-14.4)
[2020-07-06 06:17] LABS: CLARITY,URINE CLEAR (CLEAR); COLOR,URINE YELLOW (YELLOW)
[2020-07-06 06:18] LABS: BILIRUBIN,URINE NEGATIVE (NEGATIVE); KETONES,URINE NEGATIVE (NEGATIVE); LEUKOCYTE ESTERASE ,URINE NEGATIVE (NEGATIVE); NITRITE,URINE NEGATIVE (NEGATIVE); PROTEIN,URINE DIPSTICK NEGATIVE (NEGATIVE); RBC,URINE 0-5 /HPF (0-5); URINE UROBILINOGEN 0.2 mg/dL (0.2 - 1); WBC,URINE (MAN) 0-5 /HPF (0-5)
[2020-07-06 06:19] LABS: BACTERIA,URINE RARE /HPF; EPITHELIAL CELLS,URINE FEW /LPF
[2020-07-06 06:23] LABS: ALBUMIN 3.2 g/dL (3.5-5.0); ALBUMIN/GLOBULIN RATIO 1.1 (0.8-2.0); ANION GAP 12.9 mmol/L (8-16); CALCIUM 9.3 mg/dL (8.4-10.2); CREATININE, SERUM 1.4 mg/dL (0.57-1.11); POTASSIUM 3.9 mmol/L (3.5-5.1)
[2020-07-06 06:35] LABS: CREATINE KINASE MB 0.9 ng/mL (0-5.0)
[2020-07-06] MEDS: SODIUM CHLORIDE 0.9% 1000ML 1,000 ML IV SCH ×4 (06:54→21:58)
[2020-07-06 08:49] VITALS: BP 99/55
[2020-07-06 09:25] LABS: ABG HCO3 21 mmol/L (22-26); ABG PCO2 35 mmHg (35-45); ABG PH 7.39 (7.35-7.45); ABG PO2 74 mmHg (80-105); ABG TCO2 22
[2020-07-06 11:06] VITALS: BP 110/63
[2020-07-06 11:10] VITALS: BP 110/63
[2020-07-06] MEDS: PIPER-TAZ 3.375 GM 50 ML IV SCH ×2 (12:06→17:26)
[2020-07-06] MEDS: MORPHINE SULFATE INJ 4 MG/ML INJ 1ML IV PRN ×2 (14:59→21:36)
[2020-07-06 15:19] VITALS: BP 128/58
[2020-07-06 16:43] LABS: CREATINE KINASE MB 0.8 ng/mL (0-5.0)
[2020-07-06 20:00] VITALS: BP 126/52
[2020-07-07] VITALS (9 sets, daily range): BP systolic 92–142; BP diastolic 51–92
[2020-07-07] MEDS: PIPER-TAZ 3.375 GM 50 ML IV SCH ×5 (06:06→23:40)
[2020-07-07 06:17] LABS: BASOPHILS % 0.5 % (0.0-1.0); EOSINOPHILS % 0.4 % (0.0-6.0); HEMATOCRIT 38.1 % (34.2-44.1); LYMPHOCYTES # (AUTO) 0.5 (1.0-3.2); MEAN CORPUSCULAR HEMOGLOBIN 30.5 pg (28-32); MEAN CORPUSCULAR HGB CONC 31.5 g/dL (31-35); MEAN CORPUSCULAR VOLUME 96.9 fL (81-99); MONOCYTES # (AUTO) 0.5 (0.2-0.8); MONOCYTES % 6.1 % (4.4-11.3); NEUTROPHILS # (AUTO) 6.3 (2.1-6.9); NEUTROPHILS % 85.6 % (38.7-80.0); PLATELET COUNT 168 x10e3/uL (140-360); RED BLOOD COUNT 3.93 x10e6/uL (3.6-5.1); RED CELL DISTRIBUTION WIDTH 13.3 % (11.7-14.4)
[2020-07-07 06:37] LABS: ALBUMIN/GLOBULIN RATIO 0.8 (0.8-2.0); ANION GAP 12.7 mmol/L (8-16); CALCIUM 7.5 mg/dL (8.4-10.2); CREATININE, SERUM 1.42 mg/dL (0.57-1.11); POTASSIUM 3.7 mmol/L (3.5-5.1)
[2020-07-07] MEDS: AMLODIPINE BESYLATE 5 MG TAB PO SCH (08:29)
[2020-07-07] MEDS: LEVOTHYROXINE SODIUM 100 MCG TAB PO SCH (08:29)
[2020-07-07] MEDS: LIOTHYRONINE SODIUM 5 MCG TAB PO SCH (08:29)
[2020-07-07] MEDS: OYST-CAL-D 500MG TABLET PO SCH ×2 (08:29→17:53)
[2020-07-07] MEDS: CLOPIDOGREL BISULFATE 75 MG TAB PO SCH (08:29)
[2020-07-07] MEDS: SODIUM CHLORIDE 0.9% 1000ML 1,000 ML IV SCH ×4 (08:30→21:45)
[2020-07-07] MEDS: ASPIRIN 81 MG CHEW TAB PO SCH (20:10)
[2020-07-07] MEDS: SIMVASTATIN 40 MG TAB PO SCH (20:10)
[2020-07-08] VITALS (7 sets, daily range): BP systolic 120–153; BP diastolic 64–81
[2020-07-08] MEDS: MORPHINE SULFATE INJ 4 MG/ML INJ 1ML IV PRN (03:37)
[2020-07-08] MEDS: PIPER-TAZ 3.375 GM 50 ML IV SCH ×4 (05:45→23:40)
[2020-07-08] MEDS: SODIUM CHLORIDE 0.9% 1000ML 1,000 ML IV SCH ×3 (05:45→20:47)
[2020-07-08 06:17] LABS: BASOPHILS % 0.7 % (0.0-1.0); EOSINOPHILS # (AUTO) 0.1 (0.0-0.4); EOSINOPHILS % 2.4 % (0.0-6.0); HEMATOCRIT 37.2 % (34.2-44.1); HEMOGLOBIN 11.9 g/dL (12.0-16.0); LYMPHOCYTES # (AUTO) 0.6 (1.0-3.2); LYMPHOCYTES % 10.6 % (18.0-39.1); MEAN CORPUSCULAR HEMOGLOBIN 30.7 pg (28-32); MEAN CORPUSCULAR VOLUME 95.9 fL (81-99); MONOCYTES # (AUTO) 0.5 (0.2-0.8); MONOCYTES % 8.7 % (4.4-11.3); NEUTROPHILS # (AUTO) 4.5 (2.1-6.9); NEUTROPHILS % 77.1 % (38.7-80.0); PLATELET COUNT 165 x10e3/uL (140-360); RED BLOOD COUNT 3.88 x10e6/uL (3.6-5.1)
[2020-07-08 06:34] LABS: ALBUMIN 1.9 g/dL (3.5-5.0); ALBUMIN/GLOBULIN RATIO 0.8 (0.8-2.0); ANION GAP 11.8 mmol/L (8-16); CALCIUM 7.7 mg/dL (8.4-10.2); CREATININE, SERUM 1.05 mg/dL (0.57-1.11); POTASSIUM 3.8 mmol/L (3.5-5.1)
[2020-07-08 06:52] LABS: CREATINE KINASE 24 IU/L (29-168)
[2020-07-08] MEDS: LIOTHYRONINE SODIUM 5 MCG TAB PO SCH (07:30)
[2020-07-08] MEDS: LEVOTHYROXINE SODIUM 100 MCG TAB PO SCH (07:30)
[2020-07-08] MEDS: AMLODIPINE BESYLATE 5 MG TAB PO SCH (09:54)
[2020-07-08] MEDS: OYST-CAL-D 500MG TABLET PO SCH ×2 (09:54→17:04)
[2020-07-08] MEDS: CLOPIDOGREL BISULFATE 75 MG TAB PO SCH (09:55)
[2020-07-08] MEDS ORDERED: ONDANSETRON HCL 4 MG ORAL DISINTEGRATING TAB PO PRN (13:30)
[2020-07-08] MEDS: ASPIRIN 81 MG CHEW TAB PO SCH (20:47)
[2020-07-08] MEDS: SIMVASTATIN 40 MG TAB PO SCH (20:47)
[2020-07-09] VITALS: BP 156/75
[2020-07-09 04:00] VITALS: BP 166/75
[2020-07-09] MEDS: SODIUM CHLORIDE 0.9% 1000ML 1,000 ML IV SCH (04:24)
[2020-07-09] MEDS: PIPER-TAZ 3.375 GM 50 ML IV SCH (05:24)
[2020-07-09 09:10] VITALS: BP 169/74
== END 2020-07-09 08:41 | disposition home or self-care (01) | DRG 871 ==
LOC: ER 05:32 → ERHOLD 05:54 → MED/SURG3 08:08
PROVIDERS: ADMIT Internal Medicine; ATTEND Internal Medicine
DX: A41.9 Sepsis, unspecified organism (principal); J69.0 Pneumonitis due to inhalation of food and vomit; K52.1 Toxic gastroenteritis and colitis; Z11.59 Encounter for screening for other viral diseases; T36.95XA Adverse effect of unspecified systemic antibiotic, initial encounter; I12.9 Hypertensive chronic kidney disease with stage 1 through stage 4 chronic kidney disease, or unspecified chronic kidney disease; N18.30 Chronic kidney disease, stage 3 unspecified; E03.9 Hypothyroidism, unspecified; D64.9 Anemia, unspecified; E78.00 Pure hypercholesterolemia, unspecified
CPT/HCPCS: 36415; 36600; 70450; 71045; 72125; 80053; 81001; 82550; 82553; 82805; 83605; 83690; 83735; 83880; 84484; 85025; 85610; 85730; 87040; 87086; 87186; 93005; 99284; J2270; J2405; J2543; J7030; U0002

== ENCOUNTER 2020-07-09 21:08 | Inpatient (IN) | payer MEDICARE ==
[~2020-07-09] VITALS: Ht 160 cm; Wt 67.7 kg
[2020-07-09] MEDS ORDERED: ACETAMINOPHEN 325 MG TAB PO ONE (21:30)
[2020-07-09] MEDS ORDERED: PIPER-TAZ 3.375 GM 50 ML IV ONE (21:30)
[2020-07-09] MEDS ORDERED: ONDANSETRON HCL INJ 2MG/ML 2ML 2 MG/ML VIAL IV STA (21:30)
--- OUTSIDE RECORDS SUMMARY | 2020-07-09 21:41 | XMS REPORT | Continuity of Care Document ---
Author Author [facility] t Organization [facility] Address [address] [place] [address] Phone Unavailable Care Team Providers Care Land Surveying Party Chief Name Role Phone GARY RUBY, MD RIVAS PCP ROB VEGA Attphys Unavailable GIL, Cathryn LAIFREDRICK Attphys Unavailable JESUS ALBERTO, T HORTA Attphys Unavailable Kelly SÁNCHEZ Attphys Unavailable JESSE, Susan BREWERS Attphys Unavailable Iva GARCIAS Attphys Unavailable ROB VEGA Admphys Unavailable Payers Payer Name Policy Type Policy Number Effective Date Expiration Date [facility]ett [facility] [id number] 2019 00:00:00 [facility] Cdc Review Covid19 [id number] [facility] Problems Condition Name Condition Details Condition Category Status Onset Date Resolution Date Last Treatment Date Treating Clinician Comments Source Diarrhea Diarrhea Problem Active 2015-08-20 00:00:00 [facility] Chest pain Chest pain Problem Active [facility] Dizziness Dizziness Problem Active [facility] Hypertension Hypertension Problem Active [facility] Syncope Syncope Problem Active [facility] Nausea Nausea Problem Active [facility] Unstable angina pectoris Unstable angina Problem Active [facility] Weakness Problem Active [facility] Fall Problem Active [facility] Contusion of left hip Problem Active [facility] Pain of left hip Problem Active [facility] Urinary tract infection Problem Active [facility] Muscle spasm Problem Active [facility] Severe sepsis Problem Active [facility] Pneumonia Problem Active [facility] Abnormal kidney function Problem Active [facility] Allergies, Adverse Reactions, Alerts Allergy Name Allergy Type Status Severity Reaction(s) Onset Date Inacti ve Date Treating Clinician Comments Source Cefuroxime Allergy to substance Active 2020-03-17 00:00:00 [facility] Codeine Propensity to adverse reactions Active Moderate GONZALEZ UCINATIONS 2018-10-16 00:00:00 [facility] Labetalol Allergy to substance Active Mild SEVERE WEAKNESS 201 06-02-15 00:00:00 [facility] Sulfamethoxazole Propensity to adverse reactions Active Severe NONAROUSABLE 2018-10-16 00:00:00 [facility] Trimethoprim Propensity to adverse reactions Active Severe NO NAROUSABLE 2018-10-16 00:00:00 [facility] Promethazine Allergy to substance Active Severe UNCONCIOUS 10-16 00:00:00 [facility] Levofloxacin Allergy to substance Active Severe Unconscious 2018 00:00:00 [facility] Family History Family Member Diagnosis Comments Start Date Stop Date Source 33 FATHER Family history of hypertension [facility] 33 FATHER Family history of malignant neoplasm of prostate [facility] 32 MOTHER Family history of acute myocardial infarction [facility] Social History Social Habit Start Date Stop Date Quantity Comments Source Sex Assigned At 1940 00:00:00 1940 00:00:00 Female [facility] Medications Ordered Medication Name Filled Medication Name Start Date Stop Da te Current Medication? Ordering Clinician Indication Dosage Frequency Signature (SIG) Comments Components Source Amlodipine Besylate Amlodipine Besylate Yes 5 Daily [facility] Aspirin (Aspir 81) 81 Mg TABLET. Aspirin (Aspir 81) 81 Mg TABLET.DR Canales 81 Bedtime [facility] Calcium Carbonate (Tums) 300 Mg TAB.CHEW Calcium Carbo lucas (Tums) 300 Mg TAB.CHEW Yes 1 Every 6 Hours as needed for I ndigestion [facility] Calcium Carbonate/Vitamin D3 (Os-Ronald 500+D Tablet) 1 E ach TABLET Calcium Carbonate/Vitamin D3 (Os-Ronald 500+D Tablet) 1 Each TABLET Yes 500 Twice A Day [facility] Clopidogrel Bisulfate (Clopidogrel) 75 Mg TABLET Clopi dogrel Bisulfate (Clopidogrel) 75 Mg TABLET Yes 75 Daily [facility] Levothyroxine Sodium Levothyroxine Sodium Yes 100 Daily [facility] Liothyronine Sodium Liothyronine Sodium Yes 15 Daily [facility] Lovastatin Lovastatin Yes 40 Bedtime [facility] Cephalexin Cephalexin 2020-03-17 00:00:00 No 500 Twi ce A Day [facility] Diphenhydramine Hcl (Benadryl) 25 Mg CAPSULE Diphenhyd ramine Hcl (Benadryl) 25 Mg CAPSULE 2020-03-17 00:00:00 No 25 Bedtime as ne eded for Insomnia [facility] Ibuprofen Ibuprofen 2020-03-17 00:00:00 No 600 Every 8 Hours as needed for Moderate Pain (4-6) [facility] Tramadol/Apa Tramadol/Apa 2020-03-17 00:00:00 No 1 Every 6 Hours as needed for Moderate Pain (4-6) [facility] Labetalol Hcl Labetalol Hcl 2018-10-16 00:00:00 No 50 Twice A Day [facility] Amlodipine Amlodipine 2018-03-08 00:00:00 No 5 Amaya ly [facility] Atenolol Atenolol 2018-03-08 00:00:00 No 100 Bedtime [facility] Benazepril Hcl Benazepril Hcl 2018-03-08 00:00:00 No 20 Bedtime [facility] Clopidogrel Bisulfate (Clopidogrel) 75 Mg TABLET Clopi dogrel Bisulfate (Clopidogrel) 75 Mg TABLET 2018-03-08 00:00:00 No 75 Daily [facility] Ticagrelor (Brilinta) 90 Mg TABLET Ticagrelor (Brilinta) 90 Mg T ABLET 2018-03-08 00:00:00 No 90 Twice A Day [facility] Amlodipine Besylate Amlodipine Besylate 2018-02-05 00:00:00 No 5 Daily [facility] Omeprazole Omeprazole 2018-01-14 00:00:00 No 40 Amaya ly [facility] Cephalexin (Keflex) 250 Mg CAPSULE Cephalexin (Keflex) 250 Mg CA PSULE 2017-01-14 00:00:00 No 250 Twice A Day [facility] Docusate Sodium (Colace) 100 Mg CAP Docusate Sodium (Colace) 100 Mg CAP 2016-03-27 00:00:00 No 100 Twice A Day [facility] Tramadol Hcl (Ultram) 50 Mg TABLET Tramadol Hcl (Ultram) 50 Mg T [facility] 2016-03-27 00:00:00 No 50 Every 4 Hours as nee ded for Pain [facility] Aspirin Aspirin 2015-10-17 00:00:00 No 81 Bedtime [facility] Methocarbamol (Robaxin-750) 750 Mg TABLET Methocarbamo l (Robaxin-750) 750 Mg TABLET 2015-07-27 00:00:00 No 750 Three Times A Day [facility] [place]-3 Fatty Acids/Fish Oil ([place] 3 Fish Oil Softgel ) 1 Each CAPSULE.DR Cee 3 Fatty Acids/Fish Oil ([place] 3 Fish Oil Softgel) 1 Each CAPSULE. 2015-07-27 00:00:00 No [facility] Tramadol Hcl (Ultram 50MG*) 50 Mg TAB Tramadol Hcl (Ultram 50MG* ) 50 Mg TAB 2015-07-27 00:00:00 No 50 Every 6 Hours for Pa in [facility] Ubidecarenone (Co Q-10) 10 Mg CAPSULE Ubidecarenone (Co Q-10) 10 Mg CAPSULE 2015-07-27 00:00:00 No [facility] Aspirin (Aspirin Chew) 81 Mg CHEW Aspirin (Aspirin Chew) 81 Mg C HEW 2014-07-27 00:00:00 No 81 Bedtime [facility] Atenolol Atenolol 2014-07-27 00:00:00 No 100 Bedtime [facility] Benazepril Hcl Benazepril Hcl 2014-07-27 00:00:00 No 40 Bedtime [facility] Calcium Carbonate (Oscal D) 500 Mg TAB Calcium Carbonate (Oscal D) 500 Mg TAB 2014-07-27 00:00:00 No 500 Three Times A Day [facility] Levothyroxine Sodium Levothyroxine Sodium 2014-07-27 00:00:00 No 75 Daily [facility] Liothyronine Sodium Liothyronine Sodium 2014-07-27 00:00:00 No 5 Daily [facility] Lovastatin Lovastatin 2014-07-27 00:00:00 No 40 Bed time [facility] Omeprazole Omeprazole 2014-07-27 00:00:00 No 40 Amaya ly [facility] Ubidecarenone (Coq-10) 30 Mg CAPSULE Ubidecarenone (Coq-10) 30 M g CAPSULE 2014-07-27 00:00:00 No 30 Daily [facility] Azilsartan Medoxomil (Edarbi) 40 Mg TABLET Azilsartan Medoxomil (Edarbi) 40 Mg TABLET 2013-03-03 00:00:00 No Daily [facility] Nisoldipine Nisoldipine 2013-01-19 00:00:00 No 8.5 T wice A Day [facility] Vital Signs Vital Name Observation Time Observation Value Comments Source Weight 2020-07-09 05:35:00 149.19 [lb_av] [facility] BMI (Body Mass Index) 2020-07-09 05:35:00 26.4 kg/m2 [facility] Body Temperature 2020-07-09 04:00:00 97.6 [degF] [facility] Weight 2020-07-05 09:12:00 145 [lb_av] [facility] BMI (Body Mass Index) 2020-07-05 09:12:00 25.7 kg/m2 [facility] Body Temperature 2020-04-21 13:00:00 98.5 [degF] [facility] Procedures Procedure Date / Time Performed Performing Clinician [facility] e Computed tomography of brain without radiopaque contrast 2020-07 00:00:00 [facility] Computed tomography of cervical spine without contrast 4 00:00:00 [facility] EXTIRPATION OF MATTER FROM L INT CAROTID, OPEN APPROACH 00:00:00 [facility] SUPPLEMENT L COM CAROTID WITH SYNTH SUB, OPEN APPROACH 2020-04-02 0 00:00:00 [facility] SUPPLEMENT L INT CAROTID WITH SYNTH SUB, OPEN APPROACH 2020-04-02 0 00:00:00 [facility] Magnetic resonance imaging of brain without contrast 2020-04-16 00:00:00 [facility] [address] angiography of neck 2020-04-14 00:00:00 [facility] Computed tomography of brain without radiopaque contrast 2020-04 00:00:00 [facility] Computed tomography of cervical spine without contrast 2020-04-01 2 00:00:00 [facility] CT angiogram extremity lower w contrast 2020-03-19 00:00:00 [facility] X-ray of chest, two views 2019-11-17 00:00:00 RULA GRANDA [facility] Plan of Care Planned Activity Planned Date Details Comments Source Instructions Infection Control [facility] Instructions Low Sodium Diet [facility] Encounters Start Date/Time End Date/Time Encounter Type Admission Type Attendi [facility] Care Department Encounter ID Source 2020-07-06 05:54:00 2020-07-09 08:41:00 Discharged Inpatient 1 ROB VEGA [facility] [id number] [facility] 2020-07-05 09:15:00 2020-07-05 13:25:00 Departed Emergency Room [address] [facility] [id number] [facility] 2020-04-14 14:04:00 2020-04-21 16:34:00 Discharged Inpatient [address] [facility] [id number] [facility] 2020-03-17 18:35:00 2020-03-20 16:00:00 Discharged Inpatient (obs) [address] [facility] [id number] [facility] 2019-11-17 10:41:00 2019-11-18 14:22:00 Discharged Inpatient (obs) [address] [facility] [id number] [facility] 2019-08-17 12:50:00 2019-08-17 16:56:00 Departed Emergency Room [address] [facility] [id number] [facility] 2019-05-17 11:54:00 2019-05-17 11:54:00 Outpatient [facility] [address] [place] [address] 2018-10-16 17:46:00 2018-10-16 19:36:[address] [facility] [id number] [facility] 2018-03-26 08:38:00 2018-03-26 12:16:00 Departed Emergency Room 1 INNA SÁ[address]HEZ [facility] [id number] [facility] 2018-03-08 07:53:00 2018-03-08 09:40:[address] [facility] [id number] [facility] 2018-02-15 10:56:00 2018-02-15 17:43:00 Departed Emergency Room 1 JESSE, DHRUV [facility] [id number] [facility] 2018-02-09 07:07:00 2018-02-09 07:07:00 Registered Surgical Day Care [facility] [id number] [facility] 2018-02-05 14:04:00 2018-02-06 18:50:00 Discharged Inpatient (obs) ER ROB VEGA [facility] [id number] [facility] 2018-01-14 13:22:00 2018-01-14 13:54:[address] [facility] [id number] [facility] 2017-11-26 14:58:00 2017-11-26 16:48:[address] [facility] [id number] [facility] 2017-06-17 18:45:00 2017-06-17 21:23:00 Departed Emergency Room ER GARCIAS ERICA [facility] [id number] [facility] 2017-05-10 06:46:00 2017-05-10 06:46:00 Registered Surgical Day Care [facility] [id number] [facility] 2017-05-07 13:26:00 2017-05-07 15:25:[address] [facility] [id number] [facility] 2017-04-18 07:04:00 2017-04-18 07:04:[address] [facility] [id number] [facility] 2017-04-12 13:37:00 2017-04-12 19:02:[address] [facility] [id number] [facility] 2017-03-15 12:00:00 2017-03-15 12:00:[address] [facility] [id number] [facility] 2017-02-13 08:02:00 2017-02-13 08:02:[address] [facility] [id number] [facility] Results Test Description Test Time Test Comments Results Result Comments Source Blood leukocytes automated count (number/volume) 2020-07-08 05:21:00 Test Item White Blood Count (test code = 6690-2) 5.84 4.8-10.8 [facility] count (number/volume)2020-07-08 05:21:00* Test Item Value Reference Range Interpretation Comments Red Blood Count (test code = 789-8) 3.88 3.6-5.1 [facility] hemoglobin measurement (moles/volume)2020-07-08 05:21:00* Test Item Value Reference Range Interpretation Comments Hemoglobin (test code = 31180-5) 11.9 12.0-16.0 [facility] Center[facility] blood hematocrit (volume fraction)2020-07-08 05:21:00* Test Item Value Reference Range Interpretation Comments Hematocrit (test code = 4544-3) 37.2 34.2-44.1 [facility] CenterAutom[facility] erythrocyte mean corpuscular [id number] 05:21:00* Test Item Value Reference Range Interpretation Comments Mean Corpuscular Volume (test code = 787-2) 95.9 81-99 [facility] Center[facility] erythrocyte mean corpuscular hemoglobin (mass per erythrocyte)2020-07-08 05:21:00* Test Item Value Reference Range Interpretation Comments Mean Corpuscular Hemoglobin (test code = 785-6) 30.7 28-32 [facility] CenterAutom[facility] erythrocyte mean corpuscular hemoglobin concentration measurement (mass/volume)2020-07-08 05:21:00* Test Item Value Reference Range Interpretation Comments Mean Corpuscular Hemoglobin Concent (test code = 786-4) 32.0 31-35 [facility] CenterRDW [id number] 05:21:00* Test Item Value Reference Range Interpretation Comments Red Cell Distribution Width (test code = 91594-9) 13.0 11.7 -14.4 [facility] CenterAutom[facility] blood platelet count (count/volume)2020-07-08 05:21:00* Test Item Value Reference Range Interpretation Comments Platelet Count (test code = 777-3) 165 140-360 [facility] CenterAutom[facility] blood segmented neutrophil count as percentage of total [id number] 05:21:00* Test Item Value Reference Range Interpretation Comments Neutrophils (%) (Auto) (test code = 83287-8) 77.1 38.7-80.0 [facility] CenterAutom[facility] blood lymphocyte count as percentage ot total quikyhzvuh8377-59-79 05:21:00* Test Item Value Reference Range Interpretation Comments Lymphocytes (%) (Auto) (test code = 736-9) 10.6 18.0-39.1 [facility] CenterAutom[facility] blood monocyte count as percentage of total [id number] 05:21:00* Test Item Value Reference Range Interpretation Comments Monocytes (%) (Auto) (test code = 5905-5) 8.7 4.4-11.3 [facility] CenterAutformerly [facility] eosinophil count as percentage of total qwnwtbqjpj6670-08-58 05:21:00* Test Item Value Reference Range Interpretation Comments Eosinophils (%) (Auto) (test code = 713-8) 2.4 0.0-6.0 [facility] CenterAutformerly [facility] blood basophil count as percentage of total [id number] 05:21:00* Test Item Value Reference Range Interpretation Comments Basophils (%) (Auto) (test code = 706-2) 0.7 0.0-1.0 [facility] CenterFluoroscopic procedure less than one hour [id number] 05:21:00* Test Item Value Reference Range Interpretation Comments IM GRANULOCYTES % (test code = IM GRANULOCYTES %) 0.5 0.0- 1.0 [facility] CenterAutom[facility] blood neutrophil count 2020-07-08 05:21:00* Test Item Value Reference Range Interpretation Comments Neutrophils # (Auto) (test code = 751-8) 4.5 2.1-6.9 [facility] Center[facility] lymphocytes count (number/volume) 2020-07-08 05:21:00* Test Item Value Reference Range Interpretation Comments Lymphocytes # (Auto) (test code = 34772-4) 0.6 1.0-3.2 [facility] CenterBlood monocytes automated count (number/volume)2020-07-08 05:21:00* Test Item Value Reference Range Interpretation Comments Monocytes # (Auto) (test code = 742-7) 0.5 0.2-0.8 [facility] CenterAutomated blood eosinophil count 2020-07-08 05:21:00* Test Item Value Reference Range Interpretation Comments Eosinophils # (Auto) (test code = 711-2) 0.1 0.0-0.4 [facility] CenterAutomated blood basophil count (count/volume)2020-07-08 05:21:00* Test Item Value Reference Range Interpretation Comments Basophils # (Auto) (test code = 704-7) 0.0 0.0-0.1 [facility] CenterFluoroscopic procedure less than one hour [id number] 05:21:00* Test Item Value Reference Range Interpretation Comments Absolute Immature Granulocyte (auto (idania t code = Absolute Immature Granulocyte (auto) 0.03 0-0.1 [facility] sodium measurement (moles/volume)2020-07-08 05:21:00* Test Item Value Reference Range Interpretation Comments Sodium Level (test code = 2951-2) 141 136-145 [facility] plasma potassium measurement (moles/volume)2020-07-08 05:21:00* Test Item Value Reference Range Interpretation Comments Potassium Level (test code = 2823-3) 3.8 3.5-5.1 [facility] plasma chloride measurement (moles/volume)2020-07-08 05:21:00* Test Item Value Reference Range Interpretation Comments Chloride Level (test code = 2075-0) 114 98-107 [facility] or plasma carbon dioxide, total measurement (moles/volume)2020-07-08 05:21:00* Test Item Value Reference Range Interpretation Comments Carbon Dioxide Level (test code = 2028-9) 19 22-29 [facility] or plasma anion [id number] 05:21:00* Test Item Value Reference Range Interpretation Comments Anion Gap (test code = 87833-1) 11.8 8-16 [facility] or plasma urea nitrogen measurement (mass/volume)2020-07-08 05:21:00* Test Item Value Reference Range Interpretation Comments Blood Urea Nitrogen (test code = 3094-0) 19 7-26 [facility]erum or plasma creatinine measurement (mass/volume)2020-07-08 05:21:00* Test Item Value Reference Range Interpretation Comments Creatinine (test code = 2160-0) 1.05 0.57-1.11 [facility] or plasma urea nitrogen/creatinine mass [id number] 05:21:00* Test Item Value Reference Range Interpretation Comments BUN/Creatinine Ratio (test code = 3097-3) 18 6-25 [facility] CenterEstimated glomerular filtration rate (GFR) ffzgmjsfesrzl1012-75-28 05:21:00* Test Item Value Reference Range Interpretation Comments Estimat Glomerular Filtration Rate (test code = 404708448) 51 >60 Ranges were taken from the National Kidney Disease Education Program and the [facility] literature.Reference ranges:60 or greater: Xsalyx56-57 ( for 3 consecutive months): Chronic kidney disease 15 or less: Kidney failureConnally Memorial Medical CenterGlucose [id number] 05:21:00* Test Item Value Reference Range Interpretation Comments Glucose Level (test code = PRS7513) 77 74-118 [facility]erum or plasma calcium measurement (mass/volume)2020-07-08 05:21:00* Test Item Value Reference Range Interpretation Comments Calcium Level (test code = 89575-7) 7.7 8.4-10.2 [facility] Hospitalerum or plasma total bilirubin measurement (mass/volume)2020-07-08 05:21:00* Test Item Value Reference Range Interpretation Comments Total Bilirubin (test code = 1975-2) 0.3 0.2-1.2 [facility] CenterFluoroscopic procedure less than one hour [id number] 05:21:00* Test Item Value Reference Range Interpretation Comments Aspartate Amino Transf (AST/SGOT) (test code = Aspartate Amino Transf (AST/SGOT)) 61 5-34 [facility] Hospitalerum or plasma alanine aminotransferase measurement (enzymatic activity/volume)2020-07-08 05:21:00* Test Item Value Reference Range Interpretation Comments Alanine Aminotransferase (ALT/SGPT) (test code = 1742-6) 104 0-55 [facility] Hospitalerum or plasma protein measurement (mass/volume)2020-07-08 05:21:00* Test Item Value Reference Range Interpretation Comments Total Protein (test code = 2885-2) 4.4 6.5-8.1 [facility] Hospitalerum or plasma albumin measurement (mass/volume)2020-07-08 05:21:00* Test Item Value Reference Range Interpretation Comments Albumin (test code = 1751-7) 1.9 3.5-5.0 [facility] CenterPlasma globulin measurement (mass/volume) 2020-07-08 05:21:00* Test Item Value Reference Range Interpretation Comments Globulin (test code = 08596-3) 2.5 2.3-3.5 [facility]erum or plasma albumin/globulin mass [id number] 05:21:00* Test Item Value Reference Range Interpretation Comments Albumin/Globulin Ratio (test code = 1759-0) 0.8 0.8-2.0 [facility] Hospitalerum or plasma alkaline phosphatase measurement (enzymatic activity/volume)2020-07-08 05:21:00* Test Item Value Reference Range Interpretation Comments Alkaline Phosphatase (test code = 6768-6) 131 40-150 [facility] Hospitalerum or plasma creatine kinase measurement (enzymatic activity/volume)2020-07-08 05:21:00* Test Item Value Reference Range Interpretation Comments Creatine Kinase (test code = 2157-6) 24 29-168 [facility] Hospitalerum or plasma creatine kinase MB measurement (mass/volume)2020-07-08 05:21:00* Test Item Value Reference Range Interpretation Comments Creatine Kinase MB (test code = 99604-2) 1.50 0-5.0 [facility] CenterTroponin I measurement by highly sensitive enzyme yanjnoslect0977-97-68 05:21:00* Test Item Value Reference Range Interpretation Comments Troponin I (test code = 71847-8) < 0.001 0-0.300 [facility]2020-07-06 08:32:00 [facility] [address] [address] Patient Name: VICKI ESPARZA MR #: [id number] : 1940 Age/Sex: 79/F Req #: [id number] Adm Physician: ROB VEGA MD Ordered by: STEF INMAN DO Report #: [id number] Location: [facility] Room/Bed: [facility] Procedure: [id number] DX/CHEST SI NGLE (PORTABLE) Exam Date: 07/06/20 Exam Time: 0720 REPORT STATUS: Signed EXAMINATIO N: CHEST SINGLE (PORTABLE) INDICATION: Possible COVID. COMPARISON : Chest radiograph 04/17/2020. FINDINGS: TUBES and LINES: None. LUNGS: Lungs are well inflated. There are patchy bibasilar opacities. Mild bronchial wall thickening. No evidence of lobar consolidation. No evidence of pulmonary edema. PLEURA: No pleural effusion or pneumothorax. HEAR T AND MEDIASTINUM: The cardiomediastinal silhouette is unremarkable. There ar e atherosclerotic calcifications within the aorta. BONES AND SOFT TISSUES: No acute osseous lesion. Soft tissues are unremarkable. UPPER ABDOMEN: No free air under the diaphragm. IMPRESSION: Patchy bibasilar opacit ies, likely atelectasis, although infection is possible in the appropriate cli nical setting. Findings suggestive of bronchitis or small airways disease. Signed by: Dr. Cj Espinoza MD on 07/06/2020 8:38 AM Dictated By: CJ ESPINOZA MD 7 Transc ribed By: TROY on 07/06/20837 COPY TO: STEF INMAN Urine color qbfzzqfzrczjs6732-22-31 06:02:00* Test Item Value Reference Range Interpretation Comments Urine Color (test code = 5778-6) YELLOW YELLOW [facility] CenterUrine pedeqcr6623-75-01 06:02:00* Test Item Value Reference Range Interpretation Comments Urine Clarity (test code = 45241-2) CLEAR CLEAR [facility] Hospitalpecific gravity of Urine by Test strip 2020-07-06 06:02:00* Test Item Value Reference Range Interpretation Comments Urine Specific [place] (test code = 5811-5) 1.020 1.010-1.02 5 [facility] CenterUrine pH measurement by automated test tmies4637-05-36 06:02:00* Test Item Value Reference Range Interpretation Comments Urine pH (test code = 90909-3) 5.5 5-7 [facility] CenterUrine leukocyte esterase detection by tcjvxfyi7699-70-88 06:02:00* Test Item Value Reference Range Interpretation Comments Urine Leukocyte Esterase (test code = 5799-2) NEGATIVE NEGATIVE [facility] CenterUrine nitrite mmyqmjmmj5127-93-05 06:02:00* Test Item Value Reference Range Interpretation Comments Urine Nitrite (test code = 16549-5) NEGATIVE NEGATIVE [facility] CenterUrine protein measurement by test strip (mass/volume)2020-07-06 06:02:00* Test Item Value Reference Range Interpretation Comments Urine Protein (test code = 5804-0) NEGATIVE NEGATIVE [facility] CenterUrine glucose sqnwqgbpv3253-31-30 06:02:00* Test Item Value Reference Range Interpretation Comments Urine Glucose (UA) (test code = 2349-9) NEGATIVE NEGATIVE [facility] CenterUrine ketones detection by automated test gvbcu3144-88-14 06:02:00* Test Item Value Reference Range Interpretation Comments Urine Ketones (test code = 76150-4) NEGATIVE NEGATIVE [facility] CenterUrine urobilinogen measurement by test strip (mass/volume)2020-07-06 06:02:00* Test Item Value Reference Range Interpretation Comments Urine Urobilinogen (test code = 33048-5) 0.2 0.2-1 [facility] CenterUrine total bilirubin measurement (mass/volume)2020-07-06 06:02:00* Test Item Value Reference Range Interpretation Comments Urine Bilirubin (test code = 1978-6) NEGATIVE NEGATIVE [facility] CenterUrine erythrocytes mmhfqitde1617-29-39 06:02:00* Test Item Value Reference Range Interpretation Comments Urine Blood (test code = 74785-6) NEGATIVE NEGATIVE [facility] CenterAutomated urine sediment leukocyte count by microscopy (number/high power field)2020-07-06 06:02:00* Test Item Value Reference Range Interpretation Comments Urine WBC (test code = 5821-4) 0-5 0-5 [facility] CenterErythrocytes detection in urine sediment by light eqomwxtlvo7239-53-01 06:02:00* Test Item Value Reference Range Interpretation Comments Urine RBC (test code = 17983-0) 0-5 0-5 [facility] CenterBacteria detection in urine sediment by light oghcwvztof2450-13-22 06:02:00* Test Item Value Reference Range Interpretation Comments Urine Bacteria (test code = 01352-2) RARE NONE [facility] CenterEpithelial cells detection in urine sediment by light xmqxrtochr2390-13-12 06:02:00* Test Item Value Reference Range Interpretation Comments Urine Epithelial Cells (test code = 17880-1) FEW NONE [facility] CenterFluoroscopic procedure less than one hour wfuyujzv7266-91-56 06:02:00* Test Item Value Reference Range Interpretation Comments Coronavirus (PCR) (test code = Coronavirus (PCR)) NOT DETECTED NOTD ETECTED SARS-COV2/RT-PCRNegative results do not preclude SARS-CoV-2 infection and should not be used as the sole basis for patient management decisions. Negative result s must be combined with clinical observations, patient history, and epidemiologi ronald information. A false negative result may occur if a specimen is improperly c ollected, transported or handled.The limit of detection for this assay is 250 co pies/mLThe SARS-CoV-2 test is a rapid, real-time RT-PCR test intended for the qu alitative detection of nucleic acid from SARS-CoV-2 in nasopharyngeal swab speci men collected from individuals suspected of COVID-19 by their healthcare provide r. This test has not been Food and Drug Administration (FDA) cleared or approved and has been authorized by FDA under an Emergency Use Authorization (EUA). This EUA will be effective until the declaration that circumstances exist justifying the authorization of the emergency use of in vitro diagnostic test for detectio n and or diagnosis of COVID-19 is terminated under section 564(b) of the Act, or the the EUA is revoked under 564(g) of the ACT.Testing performed by [address] [address] [place], [place] [address]Arterial blood pH opxfubqbmdj1828-27-65 05:55:00* Test Item Value Reference Range Interpretation Comments Arterial Blood pH (test code = 2744-1) 7.39 7.35-7.45 [facility] CenterpCO2 BllP1231-95-51 05:55:00* Test Item Value Reference Range Interpretation Comments Arterial Blood Partial Pressure CO2 (test code = 2019-05) 35 35-45 [facility] CenterpCO2 HedI9090-65-98 05:55:00* Test Item Value Reference Range Interpretation Comments Arterial Blood Partial Pressure O2 (test code = 2019-05) 74 80-105 [facility] CenterArterial blood bicarbonate measurement (moles/volume)2020-07-06 05:55:00* Test Item Value Reference Range Interpretation Comments Arterial Blood HCO3 (test code = 1960-4) 21 22-26 [facility] CenterArterial cord blood carbon dioxide, total measurement by calculation (moles/volume)2020-07-06 05:55:00* Test Item Value Reference Range Interpretation Comments Arterial Blood Total CO2 (test code = 39385-0) 22 [facility] CenterArterial blood base excess by calculation 2020-07-06 05:55:00* Test Item Value Reference Range Interpretation Comments Arterial Blood Base Excess (test code = 1925-7) -4.0 -2-3 [facility] CenterArterial blood oxygen saturation iuvpivdqscb6476-07-81 05:55:00* Test Item Value Reference Range Interpretation Comments Arterial Blood Oxygen Saturation (test code = 2708-6) 95.0 95-98 [facility] CenterFluoroscopic procedure less than one hour bqpzfhbj4877-42-09 05:55:00* Test Item Value Reference Range Interpretation Comments FiO2 (test code = FiO2) 21 [facility] CenterFluoroscopic procedure less than one hour zioxyrzy7738-57-65 05:32:00* Test Item Value Reference Range Interpretation Comments Lactic Acid Level (test code = Lactic Acid Level) 1.8 0.5- 2.0 [facility] CenterBNP Gdp-gPea3218-47-05 05:30:00* Test Item Value Reference Range Interpretation Comments B-Type Natriuretic Peptide (test code = 69058-2) 86.1 0-100 [facility] Hospitalerum or plasma lipase measurement (enzymatic activity/volume)2020-07-06 05:30:00* Test Item Value Reference Range Interpretation Comments Lipase (test code = 3040-3) 92 8-78 [facility] CenterBlood wsodhbf4974-85-54 05:30:00* Test Item Value Reference Range Interpretation Comments Blood Culture (test code = 21082055) NO GROWTH AFTER 72 HOURS [facility] CenterCT CERVICAL SPINE SN2612-04-51 11:39:00 [facility] [address] [place] [address] Patient Name: VICKI ESPARZA MR #: [id number] : 1940 Age/Sex: 79/F Req #: [id number] Adm Physician: Ordered by: JIM CORDERO MD Report #: [id number] Location: [facility]/Bed: Procedure: [id number] CT/CT CERV ICAL SPINE WO Exam Date: 07/05/20 Exam Time: 0953 REPORT STATUS: Signed Examination: CT CERVICAL SPINE WO CONTRAST HISTORY: N HEADACHE ON ASA/PLAVIX, NECK NAREN N [id number]. COMPARISON:March 26, 2018 and April 02, 2020 cervical spine C Ts. TECHNIQUE: Multidetector helical axial images were obtained without contra st from the foramen magnum to T1. Coronal and sagittal reformatted images wer e done. Bone and soft tissue windows were evaluated. Dose modulation, itera tive reconstruction, and/or weight based adjustment of the mA/kV was utilized to reduce the radiation dose to as low as reasonably achievable. FINDING S: Alignment:Normal alignment with reversal of normal lordosis centered at C 4-C5. Vertebrae: Normal height and density. No acute fracture, infection or neoplasm. Disc space heights: Severe height loss from C4-C7. Caliber of spi nal canal: Developmentally normal. Posterior fossa and craniocervical junct ion: Foramen magnum patent. No Chiari 1 malformation. Soft tissues: Ather osclerotic calcification of the bilateral carotid arteries. Degenerative ch anges: No disc herniation or canal stenosis. Visualized lung apices: Bi apical pleural thickening. IMPRESSION: No new acute abnormalities when co mpared to prior dated April 02, 2020. Signed by: Ric Thomason 07/05/2020 11:43 AM Dictated By: CHRISTI MCINTOSH MD Electronic ally Signed By: CHRISTI MCINTOSH MD on 07/05/20 1143 Transcribed By: RONNA MAK on 07/05/20 1143 COPY TO: JIM CORDERO MD CT BRAIN WO 2020-07-05 11:03:00 [address] [address] Patient Name: VICKI ESPARZA MR #: [id number] : 1940 Age/Sex: 79/F Req #: [id number] Adm Physician: Ordered by: JIM CORDERO MD Report #: [id number] Location: ER Room/Bed: Procedure: [id number] CT/CT BRAI N WO Exam Date: 07/05/20 Exam Time: 952 REPORT STATUS: Signed Examination: CT BRAIN WO History: N HEADACHE ON ASA/PLAVIX, NECK PAIN [id number] Compari son studies:Head CT dated March 26, 2018 and April 12, 2020. Technique: Trans axial noncontrast images from the skull base through the vertex were obtained. Sagittal and coronal reformatted images were done. Dose modulation, iterative reconstruction, and/or weight based adjustment of the mA/kV was utilized to r educe the radiation dose to as low as reasonably achievable. Findings: Scalp: No abnormalities. Bones: Intact. No fractures. No blastic or lytic lesions. Brain sulci: Mild volume loss for patient's age. Ventricles: N o hydrocephalus. Extra-axial space: No abnormalities. Parenchyma: There are patchy and confluent areas of low-attenuation within subcortical and periventricular white matter, nonspecific, but could represent microvascular ischemic disease, unchanged. No masses, hemorrhage, or acute or chronic luis ical based vascular insults. Suprasellar region: No abnormalities. Cranio cervical junction: The foramen magnum is patent. No Chiari one malformation. Incidental findings: Atherosclerotic calcification of the cavernous and supraclinoid internal carotid and V4 segments of the bilateral vertebral arter ies. Impression: 1. No acute intracranial finding when compared head CT dated April 12, 2020. 2. Unchanged chronic microvascular ischemic change and volume loss. Signed by: Dr. Christi Meléndez M.D. on 07/05/2020 11: 38 AM Dictated By: CHRISTI MCINTOSH MD 1138 Transcribed By: TROY on 1138 COPY TO: JIM CORDERO MD CHEST SINGLE (PORTABLE) 2020-07-05 10:08:00 [address] [address] Patient Name: VICKI ESPARZA MR #: [id number] : 1940 Age/Sex: 79/F Req #: [id number] Adm Physician: Ordered by: JIM CORDERO MD Report #: [id number] Location: ER Room/Bed: Procedure: [id number] DX/CHEST S JAYCE (PORTABLE) Exam Date: 07/05/20 Exam Time: 0953 REPORT STATUS: Signed EXAMINATI ON: CHEST SINGLE (PORTABLE) INDICATION: BILAT SHOULDER PAIN ? CP COMPARISON: Chest radiograph 04-17-2020. FINDINGS: TUBES and LINES: None. LUNGS: Lungs are well inflated. There is no evidence of pneumonia or pulmonary edema. PLEURA: No pleural effusion or pneumothorax. HEART AND MEDIASTINUM: The cardiomediastinal silhouette is unremarkable. There are atherosclerotic calcifications within the aorta. BONES AND SOFT TISSU ES: No acute osseous lesion. Soft tissues are unremarkable. UPPER ABDOM EN: No free air under the diaphragm. IMPRESSION: No acute thoracic a bnormality. Signed by: Dr. Cj Espinoza MD on 07/05/2020 10:11 AM Dict ated By: CJ ESPINOZA MD 1011 Transcribed By: TROY on 07/05/20 1011 COPY TO: JIM CORDERO MD Blood leukocytes automated count (number/volume)2020-07-05 09:25:00* Test Item Value Reference Range Interpretation Comments White Blood Count (test code = 6690-2) 7.28 4.8-10.8 [facility]Bl[facility] erythrocytes automated count (number/volume)2020-07-05 09:25:00* Test Item Value Reference Range Interpretation Comments Red Blood Count (test code = 789-8) 5.06 3.6-5.1 [facility] CenterBlood hemoglobin measurement (moles/volume)2020-07-05 09:25:00* Test Item Value Reference Range Interpretation Comments Hemoglobin (test code = 31134-1) 15.1 12.0-16.0 [facility] CenterAutomated blood hematocrit (volume fraction)2020-07-05 09:25:00* Test Item Value Reference Range Interpretation Comments Hematocrit (test code = 4544-3) 47.4 34.2-44.1 [facility] CenterAutomated erythrocyte mean corpuscular aitnyx7328-79-38 09:25:00* Test Item Value Reference Range Interpretation Comments Mean Corpuscular Volume (test code = 787-2) 93.7 81-99 [facility] CenterAutomated erythrocyte mean corpuscular hemoglobin (mass per erythrocyte)2020-07-05 09:25:00* Test Item Value Reference Range Interpretation Comments Mean Corpuscular Hemoglobin (test code = 785-6) 29.8 28-32 [facility] CenterAutomated erythrocyte mean corpuscular hemoglobin concentration measurement (mass/volume)2020-07-05 09:25:00* Test Item Value Reference Range Interpretation Comments Mean Corpuscular Hemoglobin Concent (test code = 786-4) 31.9 31-35 [facility] CenterRDW UgzYm-Qzu8223-82-04 09:25:00* Test Item Value Reference Range Interpretation Comments Red Cell Distribution Width (test code = 90367-6) 13.1 11.7 -14.4 [facility] CenterAutomated blood platelet count (count/volume)2020-07-05 09:25:00* Test Item Value Reference Range Interpretation Comments Platelet Count (test code = 777-3) 283 140-360 [facility] CenterAutomated blood segmented neutrophil count as percentage of total xxqrvkzseu8859-28-44 09:25:00* Test Item Value Reference Range Interpretation Comments Neutrophils (%) (Auto) (test code = 33395-9) 77.4 38.7-80.0 [facility] CenterAutomated blood lymphocyte count as percentage ot total lxddjszrzw1475-22-59 09:25:00* Test Item Value Reference Range Interpretation Comments Lymphocytes (%) (Auto) (test code = 736-9) 13.2 18.0-39.1 [facility] CenterAutomated blood monocyte count as percentage of total syeykxyqvw8348-19-80 09:25:00* Test Item Value Reference Range Interpretation Comments Monocytes (%) (Auto) (test code = 5905-5) 7.8 4.4-11.3 [facility] CenterAutomated blood eosinophil count as percentage of total lgtpigjbzs9181-97-99 09:25:00* Test Item Value Reference Range Interpretation Comments Eosinophils (%) (Auto) (test code = 713-8) 0.4 0.0-6.0 [facility] CenterAutomated blood basophil count as percentage of total emewkfjvup5509-54-50 09:25:00* Test Item Value Reference Range Interpretation Comments Basophils (%) (Auto) (test code = 706-2) 0.8 0.0-1.0 [facility] CenterFluoroscopic procedure less than one hour fmiheouc8894-69-87 09:25:00* Test Item Value Reference Range Interpretation Comments IM GRANULOCYTES % (test code = IM GRANULOCYTES %) 0.4 0.0- 1.0 [facility] CenterAutomated blood neutrophil count 2020-07-05 09:25:00* Test Item Value Reference Range Interpretation Comments Neutrophils # (Auto) (test code = 751-8) 5.6 2.1-6.9 [facility] CenterBlood lymphocytes count (number/volume) 2020-07-05 09:25:00* Test Item Value Reference Range Interpretation Comments Lymphocytes # (Auto) (test code = 48228-7) 1.0 1.0-3.2 [facility] CenterBlood monocytes automated count (number/volume)2020-07-05 09:25:00* Test Item Value Reference Range Interpretation Comments Monocytes # (Auto) (test code = 742-7) 0.6 0.2-0.8 [facility] CenterAutomated blood eosinophil count 2020-07-05 09:25:00* Test Item Value Reference Range Interpretation Comments Eosinophils # (Auto) (test code = 711-2) 0.0 0.0-0.4 [facility] CenterAutomated blood basophil count (count/volume)2020-07-05 09:25:00* Test Item Value Reference Range Interpretation Comments Basophils # (Auto) (test code = 704-7) 0.1 0.0-0.1 [facility] CenterFluoroscopic procedure less than one hour tzoxgljk3680-90-04 09:25:00* Test Item Value Reference Range Interpretation Comments Absolute Immature Granulocyte (auto (idania t code = Absolute Immature Granulocyte (auto) 0.03 0-0.1 [facility] CenterProthrombin time (PT) in platelet poor plasma by coagulation dfoiq2232-81-82 09:25:00* Test Item Value Reference Range Interpretation Comments Prothrombin Time (test code = 5902-2) 12.0 11.9-14.5 [facility] CenterINR in Platelet poor plasma by Coagulation uunut7464-37-73 09:25:00* Test Item Value Reference Range Interpretation Comments Prothromb Time International Ratio (test code = 6301-6) 0.85 Oral Anticoagulant Therapy INR Values:1. Low Intensity Therapy 1.5 - 2.02 . Moderate Intensity Therapy 2.0 - 3.03. High Intensity Therapy(1) 2.5 - 3. 54. High Intensity Therapy(2) 3.0 - 4.05. Panic Value INR > 5.0 [facility] CenterActivated partial thromboplastin time (aPTT) in platelet poor plasma by coagulation udycr6496-41-79 09:25:00* Test Item Value Reference Range Interpretation Comments Activated Partial Thromboplast Time (test code = 54912-4) 25.6 23.8-35.5 [facility] CenterUrine color yhimlxqxiomdx2223-31-10 09:25:00* Test Item Value Reference Range Interpretation Comments Urine Color (test code = 5778-6) YELLOW YELLOW [facility] CenterUrine bqvxhzy8643-08-57 09:25:00* Test Item Value Reference Range Interpretation Comments Urine Clarity (test code = 57334-7) CLEAR CLEAR [facility] Hospitalpecific gravity of Urine by Test strip 2020-07-05 09:25:00* Test Item Value Reference Range Interpretation Comments Urine Specific [place] (test code = 5811-5) >=1.030 1.010-1.02 5 [facility] CenterUrine pH measurement by automated test xtmlm1230-38-95 09:25:00* Test Item Value Reference Range Interpretation Comments Urine pH (test code = 72795-1) 5.5 5-7 [facility] CenterUrine leukocyte esterase detection by hbhuqtpv2917-36-90 09:25:00* Test Item Value Reference Range Interpretation Comments Urine Leukocyte Esterase (test code = 5799-2) SMALL NEGATIVE [facility] CenterUrine nitrite niehtshkl2760-66-62 09:25:00* Test Item Value Reference Range Interpretation Comments Urine Nitrite (test code = 77574-5) NEGATIVE NEGATIVE [facility] CenterUrine protein measurement by test strip (mass/volume)2020-07-05 09:25:00* Test Item Value Reference Range Interpretation Comments Urine Protein (test code = 5804-0) 2+ NEGATIVE [facility] CenterUrine glucose vxosqldfz4474-93-98 09:25:00* Test Item Value Reference Range Interpretation Comments Urine Glucose (UA) (test code = 2349-9) NEGATIVE NEGATIVE [facility] CenterUrine ketones detection by automated test rmkqb3667-07-26 09:25:00* Test Item Value Reference Range Interpretation Comments Urine Ketones (test code = 76708-8) TRACE NEGATIVE [facility] CenterUrine urobilinogen measurement by test strip (mass/volume)2020-07-05 09:25:00* Test Item Value Reference Range Interpretation Comments Urine Urobilinogen (test code = 22652-3) 0.2 0.2-1 [facility] CenterUrine total bilirubin measurement (mass/volume)2020-07-05 09:25:00* Test Item Value Reference Range Interpretation Comments Urine Bilirubin (test code = 1978-6) NEGATIVE NEGATIVE [facility] CenterUrine erythrocytes xagaxjzsw3872-23-26 09:25:00* Test Item Value Reference Range Interpretation Comments Urine Blood (test code = 89864-4) NEGATIVE NEGATIVE [facility] CenterAutomated urine sediment leukocyte count by microscopy (number/high power field)2020-07-05 09:25:00* Test Item Value Reference Range Interpretation Comments Urine WBC (test code = 5821-4) >50 0-5 [facility] CenterErythrocytes detection in urine sediment by light xsyccuphjl4758-73-73 09:25:00* Test Item Value Reference Range Interpretation Comments Urine RBC (test code = 90682-9) 6-10 0-5 [facility] CenterBacteria detection in urine sediment by light cslbpiphjc2873-09-93 09:25:00* Test Item Value Reference Range Interpretation Comments Urine Bacteria (test code = 65907-3) MANY NONE [facility] CenterEpithelial cells detection in urine sediment by light jtqnfqwtco7083-57-11 09:25:00* Test Item Value Reference Range Interpretation Comments Urine Epithelial Cells (test code = 12633-4) MODERATE NONE [facility] CenterHyaline casts detection in urine sediment by light qsjtnsulbm8662-80-36 09:25:00* Test Item Value Reference Range Interpretation Comments Urine Hyaline Casts (test code = 97367-7) 2-5 0-1 [facility] CenterMucus detection in urine sediment by light qnqjimqyvq8483-19-55 09:25:00* Test Item Value Reference Range Interpretation Comments Urine Mucus (test code = 8247-9) FEW RARE [facility] Hospitalerum or plasma sodium measurement (moles/volume)2020-07-05 09:25:00* Test Item Value Reference Range Interpretation Comments Sodium Level (test code = 2951-2) 141 136-145 [facility] Hospitalerum or plasma potassium measurement (moles/volume)2020-07-05 09:25:00* Test Item Value Reference Range Interpretation Comments Potassium Level (test code = 2823-3) 3.7 3.5-5.1 [facility] Hospitalerum or plasma chloride measurement (moles/volume)2020-07-05 09:25:00* Test Item Value Reference Range Interpretation Comments Chloride Level (test code = 2075-0) 104 98-107 [facility] Hospitalerum or plasma carbon dioxide, total measurement (moles/volume)2020-07-05 09:25:00* Test Item Value Reference Range Interpretation Comments Carbon Dioxide Level (test code = 2028-9) 25 22-29 [facility] Hospitalerum or plasma anion sat1927-81-94 09:25:00* Test Item Value Reference Range Interpretation Comments Anion Gap (test code = 25397-9) 15.7 8-16 [facility] Hospitalerum or plasma urea nitrogen measurement (mass/volume)2020-07-05 09:25:00* Test Item Value Reference Range Interpretation Comments Blood Urea Nitrogen (test code = 3094-0) 19 7-26 [facility]erum or plasma creatinine measurement (mass/volume)2020-07-05 09:25:00* Test Item Value Reference Range Interpretation Comments Creatinine (test code = 2160-0) 1.18 0.57-1.11 [facility]erum or plasma urea nitrogen/creatinine mass ykyed0395-07-78 09:25:00* Test Item Value Reference Range Interpretation Comments BUN/Creatinine Ratio (test code = 3097-3) 16 6-25 [facility] CenterEstimated glomerular filtration rate (GFR) zknutatishvkk8784-84-31 09:25:00* Test Item Value Reference Range Interpretation Comments Estimat Glomerular Filtration Rate (test code = 185707648) 44 >60 Ranges were taken from the National Kidney Disease Education Program and the [facility] literature.Reference ranges:60 or greater: Wjwxao81-93 ( for 3 consecutive months): Chronic kidney disease 15 or less: Kidney failureConnally Memorial Medical CenterGlucose gjapfgjhask2378-34-76 09:25:00* Test Item Value Reference Range Interpretation Comments Glucose Level (test code = QDY2948) 116 74-118 [facility] or plasma calcium measurement (mass/volume)2020-07-05 09:25:00* Test Item Value Reference Range Interpretation Comments Calcium Level (test code = 37119-1) 10.0 8.4-10.2 [facility] or plasma magnesium measurement (mass/volume)2020-07-05 09:25:00* Test Item Value Reference Range Interpretation Comments Magnesium Level (test code = 37239-6) 1.8 1.3-2.1 [facility] or plasma total bilirubin measurement (mass/volume)2020-07-05 09:25:00* Test Item Value Reference Range Interpretation Comments Total Bilirubin (test code = 1975-2) 0.3 0.2-1.2 [facility] CenterFluoroscopic procedure less than one hour ebgiulcf7986-95-29 09:25:00* Test Item Value Reference Range Interpretation Comments Aspartate Amino Transf (AST/SGOT) (test code = Aspartate Amino Transf (AST/SGOT)) 25 5-34 [facility] Hospitalerum or plasma alanine aminotransferase measurement (enzymatic activity/volume)2020-07-05 09:25:00* Test Item Value Reference Range Interpretation Comments Alanine Aminotransferase (ALT/SGPT) (test code = 1742-6) 24 0-55 [facility]er[facility] or plasma protein measurement (mass/volume)2020-07-05 09:25:00* Test Item Value Reference Range Interpretation Comments Total Protein (test code = 2885-2) 6.9 6.5-8.1 [facility] or plasma albumin measurement (mass/volume)2020-07-05 09:25:00* Test Item Value Reference Range Interpretation Comments Albumin (test code = 1751-7) 3.4 3.5-5.0 [facility] CenterPlasma globulin measurement (mass/volume) 2020-07-05 09:25:00* Test Item Value Reference Range Interpretation Comments Globulin (test code = 30303-3) 3.5 2.3-3.5 [facility]erum or plasma albumin/globulin mass yhyot8745-66-29 09:25:00* Test Item Value Reference Range Interpretation Comments Albumin/Globulin Ratio (test code = 1759-0) 1.0 0.8-2.0 [facility]er[facility] or plasma alkaline phosphatase measurement (enzymatic activity/volume)2020-07-05 09:25:00* Test Item Value Reference Range Interpretation Comments Alkaline Phosphatase (test code = 6768-6) 86 40-150 [facility] or plasma creatine kinase measurement (enzymatic activity/volume)2020-07-05 09:25:00* Test Item Value Reference Range Interpretation Comments Creatine Kinase (test code = 2157-6) 48 29-168 [facility]er[facility] or plasma creatine kinase MB measurement (mass/volume)2020-07-05 09:25:00* Test Item Value Reference Range Interpretation Comments Creatine Kinase MB (test code = 78239-9) 1.30 0-5.0 [facility] CenterTroponin I measurement by highly sensitive enzyme snmycbsdwcr6408-13-82 09:25:00* Test Item Value Reference Range Interpretation Comments Troponin I (test code = 21540-8) 0.016 0-0.300 [facility] CenterProthrombin time (PT) in platelet poor plasma by coagulation ngrqh9528-82-78 09:25:00* Test Item Value Reference Range Interpretation Comments Prothrombin Time (test code = 5902-2) 12.0 11.9-14.5 [facility] CenterINR in Platelet poor plasma by Coagulation ayxfz9607-42-88 09:25:00* Test Item Value Reference Range Interpretation Comments Prothromb Time International Ratio (test code = 6301-6) 0.85 Oral Anticoagulant Therapy INR Values:1. Low Intensity Therapy 1.5 - 2.02 . Moderate Intensity Therapy 2.0 - 3.03. High Intensity Therapy(1) 2.5 - 3. 54. High Intensity Therapy(2) 3.0 - 4.05. Panic Value INR > 5.0 [facility] CenterActivated partial thromboplastin time (aPTT) in platelet poor plasma by coagulation wmzio1468-25-92 09:25:00* Test Item Value Reference Range Interpretation Comments Activated Partial Thromboplast Time (test code = 03118-1) 25.6 23.8-35.5 [facility] CenterHyaline casts detection in urine sediment by light qxcnlkrgcx8727-94-52 09:25:00* Test Item Value Reference Range Interpretation Comments Urine Hyaline Casts (test code = 65951-6) 2-5 0-1 [facility] CenterMucus detection in urine sediment by light cucibxmiir5352-09-63 09:25:00* Test Item Value Reference Range Interpretation Comments Urine Mucus (test code = 8247-9) FEW RARE [facility]er[facility] or plasma magnesium measurement (mass/volume)2020-07-05 09:25:00* Test Item Value Reference Range Interpretation Comments Magnesium Level (test code = 77186-5) 1.8 1.3-2.1 [facility] CenterBacterial urine yhvqajd5692-30-81 09:25:00* Test Item Value Reference Range Interpretation Comments Urine Culture (test code = 630-4) ESCHERICHIA COLI [facility] CenterFluoroscopic procedure less than one hour eekzbder9339-85-24 17:20:00* Test Item Value Reference Range Interpretation Comments Coronavirus (PCR) (test code = Coronavirus (PCR)) DETECTED NOTD ETECTED SARS-COV-2 (COVID19), HIGHRISK, RT-PCRPositive (Detected) results are indicative of active infection with SARS-CoV-2. A positive result does not rule out bacter ial infection or co-infection with other viruses. Detection of SARS-CoV-2 viral RNA may not indicate that SARS-CoV-2 is the causative agent for clinical symptom s. Positive and negative predictive values of testing are highly dependent n pre valence. False Positive test results are more likely when prevalence is moderate to low.Testing performed on sample type which has not been specifically validat ed. FDA believes this sample type could be used for this testing. This report ma y be amended or corrected based on validation studies in progress.The expected r esult is negative (Not Detected).The SARS-CoV-2 test is intended for the qualita tive detection of nucleic acid from SARS-CoV-2 in upper and lower respiratory sp ecimens. Testing methodology is real-time RT-PCR utilizing the [facility] SARS-CoV-2 ki t distributed by [employer].Test results must be correlated with clinical presentation and evaluated in the context of other laboratory and epidemiologic data. Test pe rformance can be affected because the epidemiology and clinical spectrum of infe ction caused by SARS-CoV-2 is not fully known. For example, the optimum types of specimens to collect and when during the course of infection these specimens ar e most likely to contain detectable viral RNA may not be known.This test has not been Food and Drug Administration (FDA) cleared or approved and has been author ized by FDA under an Emergency Use Authorization (EUA). The test is only authori zed for the duration of the declaration that circumstances exist justifying the authorization of emergency use of in vitro diagnostic tests for detection and/or diagnosis of SARS-CoV-2 under section 564(b) of the Act, 21 U.S.C. section 360b bb-3(b)(1), unless the authorization is terminated or revoked sooner. [facility] are certified under the Clinical Laboratory Improvement Am endments of 1988 (CLIA), 42 U.S.C. section 263a, to perform high complexity test s.Testing performed by [facility] [address] [place] [address] [phone] Director: Elkin Camara M.D.CLIA # [id number] 3CALLED TO JOHN IN [facility] 04/20/20 [facility] SINGLE (PORTABLE)2020-04-17 11:12:00 [place] [address] Patient Name: VICKI ESPARZA MR #: [id number] : 1940 Age/Sex: 79/F Req #: [id number] Adm Physician: ROB VEGA MD Ordered by: NICOLE THOMPSON MD Report #: [id number] Location: [facility] Room/Bed: [place] [address] Procedure: [id number] DX/CHEST S JAYCE (PORTABLE) Exam Date: 04/17/20 Exam Time: 1035 REPORT STATUS: Signed EXAM: MELINDA EST SINGLE (PORTABLE) DATE: 04/17/2020 10:35 AM INDICATION: Hypertens ion, fall COMPARISON: 03/17/2020 FINDINGS: The trachea is midline. T he lungs are symmetrically expanded without evidence for large focal consolida tion, pneumothorax, or significant pleural effusion. The cardiomediastinal silhouette is stable in appearance. The pulmonary vasculature is not engorged. Atherosclerotic calcifications are noted within the thoracic aorta. No acute osseous abnormality is identified. The surrounding soft tissues are unremarkab le. IMPRESSION: No acute cardiopulmonary process or significant int erval change identified from 03/17/2020. Signed by: Dr. Flo Cavazos MD o n 04/17/2020 11:14 AM Dictated By: FLO CAVAZOS MD 1114 Transcribed By: TROY on 04/17/20 1114 COPY TO: NICOLE THOMPSON MD MRI BRAIN [id number] 15:35:00 [place] [address] Patient Name: VICKI ESPARZA MR #: [id number] : 1940 Age/Sex: 79/F Req #: [id number] Adm Physician: ROB VEGA MD Ordered by: ROB VEGA MD Report #: [id number] Location: [facility]/Bed: [facility] 175-1 Procedure: [id number] MRI/MRI BRA IN WO Exam Date: Exam Time: REPORT STATUS: Signed Exam: Brain MRI without IV contr ast History: Dizziness, fall, COVID 19+ Comparison studies: Multiple head CTs which date to 12/16/2014, most recent of 04/12/2020. Technique: Sag ittal and axial T2 FS, axial DWI, axial T2*GRE, axial T1 FLAIR and axial coron al T2 FLAIR. Intravenous contrast: None Findings: Scalp: Normal in s ignal. No masses. Bone marrow: Normal in signal intensity. Brain sulci: M ildly prominent. Ventricles: Mild compensatory dilatation. No hydrocephalus. Extra axial spaces: No mass, no fluid collection. Parenchyma: No mass, h emorrhage or acute ischemia. Scattered and confluent T2 FLAIR hyperintense foc i in the supratentorial white matter are nonspecific but are most compatible w ith chronic microvascular ischemic changes. Suprasellar region: No abnormal ities. Craniocervical junction: Patent foramen magnum. No Chiari malformation . Vessels: Normal flow-voids in the arteries and sinuses. Incidental find ings: Bilateral intraocular lens or placement. IMPRESSION: 1. No acut e intracranial abnormalities. 2. Mild generalized parenchymal volume loss and moderate chronic microvascular ischemic changes are unchanged from recent exa ms but have progressed since 2014. Signed by: Dr. Hilario Guerrero M.D. on 04/16/2020 3:44 PM Dictated By: HILARIO GUERRERO MD Electronically Sign ed By: HILARIO GUERRERO MD on 04/16/20 1544 Transcribed By: TROY on 04/16/20 1544 COPY TO: ROB VEGA MD CTA [id number] 12:37:00 [place] [address] Patient Name: VICKI ESPARZA MR #: [id number] : 1940 Age/Sex: 79/F Req #: [id number] Adm Physician: ROB VEGA MD Ordered by: ROB VEGA MD Report #: [id number] Location: [facility]/Bed: [facility] 175-1 Procedure: [id number] CT/CTA NECK Exam Date: 04/14/20 Exam Time: 1200 REPORT STATUS: Signed Examination: Cervical CT Angiogram with Contrast Clinical indication:Carotid stenosis as seen on Dopple r examination. Comparison studies:None Technique: Axial images were obtained from the thoracic inlet. Coronal and sagittal images reconstructed from the axial data. Intravenous contrast: 100 cc of Isovue-370. CellVir nerated maximum intensity projection and 3D images were performed of the bilat eral carotid bifurcations and the aortic arch with bilateral common carotid an d cervical internal carotid arteries on a separate workstation. Degree of s tenosis at the carotid bulbs, if present, will be calculated using NASCET crit eria where the smallest diameter at the location of stenosis is compared to th e diameter of the more distal non-diseased vessel lumen. Dose modulation, i terative reconstruction, and/or weight based adjustment of the mA/kV was utili zed to reduce the radiation dose to as low as reasonably achievable. Fin dings: Aortic arch and major vessels: Patent despite nonstenotic atherosc lerotic calcification which also involves the origins of the innominate, left common carotid artery and left subclavian artery. Mild stenosis (approximately 40%) at the origin of the left subclavian artery due to calcific plaque for a length of 1.4 cm. Nonstenotic calcific plaque within the left subclavian grisel ry and immediately proximal to the origin of the left vertebral artery. C ommon carotid arteries: Nonstenotic calcific plaque of the anterior mid right common carotid. No abnormalities of the left. Cervical carotid bifurcatio ns: Right: Mild stenosis (40%) due to calcific plaque at the anterior and late ral coe. Left :Severe stenosis (approximately 80%) due to circumferential calcific plaque. Internal carotid arteries: Right: Nonstenotic calcific plaque at the proximal cervical segment of the right internal carotid artery. Left: Approximately 50% stenosis at the occipital cervical segment of the lef t internal carotid artery for a length of 1.4 cm. Vertebral arteries: P atent. [place]: The left posterior commuting artery is identifie d, while the right is not. An anterior communicating artery is not clearly vis ualized. IMPRESSION: Severe stenosis (80%) of the left carotid bifurca tion and moderate stenosis of the left cervical internal carotid artery (50%) for a length of 1.4 cm. Mild stenosis (approximately 40%) at the origin of the left subclavian artery due to calcific plaque as detailed above. Sign ed by: Dr. Christi Meléndez M.D. on 04/14/2020 1:38 PM Dictated By: ADDISON MCINTOSH MD Transcribed By: TROY on 04/14/208 COPY TO: ROB MARINELLI MD Capillary blood glucose measurement by glucometer (mass/volume)2020-04-13 07:35:00* Test Item Value Reference Range Interpretation Comments Bedside Glucose (test code = 43737-8) 97 70-120 Meter ID: [id number] Memorial Medical CenterCapillary blood glucose measurement by glucometer (mass/volume)2020-04-13 07:35:00* Test Item Value Reference Range Interpretation Comments Bedside Glucose (test code = 54968-4) 97 70-120 Meter ID: [id number] Orthopedic Hospitalerum or plasma triglyceride measurement (mass/volume)2020-04-13 05:00:00* Test Item Value Reference Range Interpretation Comments Triglycerides Level (test code = 2571-8) 154 0-149 [facility]erum or plasma cholesterol measurement (mass/volume)2020-04-13 05:00:00* Test Item Value Reference Range Interpretation Comments Cholesterol Level (test code = 2093-3) 184 0-199 Less than 200 mg/dL Low Kcij750 - 239 mg/dL Borderline Uapv483 m g/dl and greater High Risk [facility] or plasma cholesterol in LDL measurement (mass/volume) 2020-04-13 05:00:00* Test Item Value Reference Range Interpretation Comments LDL Cholesterol (test code = 2089-1) 98 60-130 [facility] or plasma cholesterol in HDL measurement (mass/volume)2020-04-13 05:00:00* Test Item Value Reference Range Interpretation Comments HDL Cholesterol (test code = 2085-9) 55 40-60 [facility] or plasma total cholesterol/cholesterol in HDL mass gvdnu1145-43-28 05:00:00* Test Item Value Reference Range Interpretation Comments Cholesterol/HDL Ratio (test code = 9830-1) 3.3 3.0-3.6 [facility]er[facility] or plasma triglyceride measurement (mass/volume)2020-04-13 05:00:00* Test Item Value Reference Range Interpretation Comments Triglycerides Level (test code = 2571-8) 154 0-149 [facility] Hospitalerum or plasma cholesterol measurement (mass/volume)2020-04-13 05:00:00* Test Item Value Reference Range Interpretation Comments Cholesterol Level (test code = 2093-3) 184 0-199 Less than 200 mg/dL Low Eiov658 - 239 mg/dL Borderline Znhj853 m g/dl and greater High Risk [facility] or plasma cholesterol in LDL measurement (mass/volume) 2020-04-13 05:00:00* Test Item Value Reference Range Interpretation Comments LDL Cholesterol (test code = 2089-1) 98 60-130 [facility] or plasma cholesterol in HDL measurement (mass/volume)2020-04-13 05:00:00* Test Item Value Reference Range Interpretation Comments HDL Cholesterol (test code = 2085-9) 55 40-60 [facility]um or plasma total cholesterol/cholesterol in HDL mass xzbxp7645-31-44 05:00:00* Test Item Value Reference Range Interpretation Comments Cholesterol/HDL Ratio (test code = 9830-1) 3.3 3.0-3.6 [facility] CenterCT C[facility] SP[facility] [id number] 16:10:00 [facility] [address] [place] [address] Patient Name: VICKI ESPARZA MR #: [id number] : 1940 Age/Sex: 79/F Req #: [id number] Adm Physician: Ordered by: JIM CORDERO MD Report #: [id number] Location: ER om/Bed: Procedure: CT/CT CERV ICAL SPINE WO Exam Date: 04/12/20 Exam Time: 1526 REPORT STATUS: Signed Examination: CT CERVICAL SPINE WO CONTRAST HISTORY:Neck pain and injury after fall. C OMPARISON:March 26, [address] TECHNIQUE: Multidetector helical ax ial images were obtained without contrast from the foramen magnum to T1. Alina nal and sagittal reformatted images were done. Bone and soft tissue windows we re evaluated. Dose modulation, iterative reconstruction, and/or weight based adjustment of the mA/kV was utilized to reduce the radiation dose to as low as reasonably achievable. FINDINGS: Alignment:Normal alignment with st raightening of normal lordosis. Vertebrae: Normal height and density. No acut e fracture, infection or neoplasm. Disc space heights: Severe height loss fr om C4-C7. Caliber of spinal canal: Developmentally normal. Posterior trice a and craniocervical junction: Foramen magnum patent. No Chiari 1 malformation . Soft tissues: Atherosclerotic calcification of the bilateral carotid grisel pam. Degenerative changes: No disc herniation or canal stenosis. Vi sualized lung apices: Biapical pleural thickening. IMPRESSION: No acute abnormalities when compared to prior dated March 26, 2018. Signed by: Dr. Kelly Meléndez M.D. on 04/12/2020 4:21 PM Dictated By: CHRISTI MELÉNDEZ MD 16 21 Transcribed By: TROY on 04/12/20 1621 COPY TO: JIM CORDERO MD CT BRAIN [id number] 15:59:00 [facility] [address] [place] [address] Patient Name: VICKI ESPARZA MR #: [id number] : 1940 Age/Sex: 79/F Req #: [id number] Adm Physician: Ordered by: JIM CORDERO MD Report #: [id number] Location: ER Room/Bed: Procedure: [id number] CT/CT TORI Pena WO Exam Date: 04/12/20 Exam Time: 1526 REPORT STATUS: Signed Examination: CT head without contrast Clinical Indication: SYNCOPE/FALL. Technique: Transaxial no ncontrast images from the skull base through the vertex were obtained. Sagitta l and coronal reformatted images were done. Dose modulation, iterative reconst ruction, and/or weight based adjustment of the mA/kV was utilized to reduce th e radiation dose to as low as reasonably achievable. Comparison: Head CT da deysi March 26, 2018. Findings: Scalp: No abnormalities. Bones: Intact. No fractures. No blastic or lytic lesions. Brain sulci: Mild volume loss for patient's age. Ventricles: No hydrocephalus. Extra-axial space: N o abnormalities. Parenchyma: There are patchy areas of low-attenuation w ithin subcortical and periventricular white matter, nonspecific, but could rep resent microvascular ischemic disease, unchanged. No masses, hemorrhage, or acute or chronic cortical based vascular insults. Suprasellar region: No ab normalities. Craniocervical junction: The foramen magnum is patent. No Chiari one malformation. Incidental findings: Atherosclerotic calcification of the cavernous and supraclinoid internal carotid arteries. Impression: 1. No acute intracranial finding when compared head CT dated March 26, 2018 . 2. Unchanged chronic microvascular ischemic change and volume loss. Signed by: Dr. Christi Meléndez M.D. on 04/12/2020 4:10 PM Dictated By: CHRISTI MCINTOSH MD 09 Transcribed By: TROY on 04/12/201609 COPY TO: JIM CORRAL MD HIP LEFT 2-3 VW (+/- PELVIS)2020-04-12 15:34:00 [place] [address] Patient Name: VICKI ESPARZA MR #: [id number] : 1940 Age/Sex: 79/F Req #: [id number] Adm Physician: Ordered by: JIM CORDERO MD Report #: [id number] Location: ER Ro om/Bed: Procedure: [id number] DX/HIP LEF T 2-3 VW (+/- PELVIS) Exam Date: Exam Time: REPORT STATUS: Signed Exam: Left h ip 2 views History: Pain Comparison: None. Findings: No acute fr acture or malalignment. 3 femoral necks to reduce for prior fracture which is healed. No abnormal soft tissue calcification or soft tissue defect. Im pression: No acute osseous abnormality Signed by: Dr. Mekhi coffey M.D. on 04/12/2020 3:36 PM Dictated By: MEKHI REMY MD Electronic ally Signed By: MEKHI REMY MD on 04/12/201535 Transcribed By: TROY on 04/12/201535 COPY TO: JIM CORDERO MD CHEST SINGLE (PORTABLE) 2020-04-12 15:31:00 [place] [address] Patient Name: VICKI ESPARZA MR #: [id number] : 1940 Age/Sex: 79/F Req #: [id number] Adm Physician: ROB VEGA MD Ordered by: JIM CORDERO MD Report #: [id number] Location: ICU Room/Bed: ICU [facility] Procedure: [id number] DX/CHEST S JAYCE (PORTABLE) Exam Date: 04/12/20 Exam Time: 1526 REPORT STATUS: Signed Examinati on: Single AP view of the chest. COMPARISON: None. INDICATION: Syncope DISCUSSION: Lines/tubes: None. Lungs: The lungs are well inflated and clear. No pneumonia or pulmonary edema. Pleura: No pleural ef fusion or pneumothorax. Heart and mediastinum: The heart and the mediastin um are unremarkable. Bones and soft tissues: No acute bony abnormalities. IMPRESSION: 1. No acute cardiopulmonary abnormalities. Si gned by: Dr. Mekhi Remy M.D. on 04/12/2020 3:33 PM Dictated By: DANIELLA REMY MD 153 Transcribed By: TROY on 04/12/20 153 COPY TO: JIM CORDERO MD BNP Hit-[id number] 14:10:00* Test Item Value Reference Range Interpretation Comments B-Type Natriuretic Peptide (test code = 24921-1) 52.8 0-100 [facility] SINGLE (PORTABLE)2020-03-20 08:41:00 [place] [address] Patient Name: VICKI ESPARZA MR #: [id number] : 1940 Age/Sex: 79/F Req #: [id number] Adm Physician: ROB VEGA MD Ordered by: ROB VEGA MD Report #: [id number] Location: [facility] Room/Bed: [place] [address] Procedure: [id number] DX/CHEST SI NGLE (PORTABLE) Exam Date: 03/20/20 Exam Time: 05 REPORT STATUS: Signed EXAMINATIO N: CHEST SINGLE (PORTABLE) INDICATION: Shortness of breath COMPAR LETI: Chest radiograph of 03/17/2020 FINDINGS: LINES/TUBES:None LUNGS:The lungs are well-inflated. No focal consolidation or pulmonary edema. PLEURA:No pleural effusion or pneumothorax. MEDIASTINUM:The cardiomed iastinal silhouette appears normal in size and shape. Atherosclerotic calcific ations of the thoracic aorta. BONES/SOFT TISSUES:No acute osseous injury. ABDOMEN:No free air under the diaphragm. IMPRESSION: No focal pne umonia or pulmonary edema. Signed by: Madalyn Dewey MD on 03/20/2020 8:42 AM Dictated By: MADALYN DEWEY MD 1 COPY TO: BENNIE VEGA MD CTA LOWER EXTREMITIES [id number] 15:41:00 [place] [address] Patient Name: VICKI ESPARZA MR #: [id number] : 1940 Age/Sex: 79/F Req #: [id number] Adm Physician: ROB VEGA MD Ordered by: ROB VEGA MD Report #: [id number] Location: MED/SURG Loly m/Bed: 107-1 Procedure: [id number] CT/CTA LOWE R EXTREMITIES BILAT Exam Date: Exam Time: REPORT STATUS: Signed Pelvis CTA with RU NOFF PROTOCOL WITH IV CONTRAST. INDICATION: Peripheral artery disease COMPARISON: Lower extremity arterial ultrasound 03/18/2020 TECHNIQUE: The pelvis and lower extremities were scanned utilizing a multidetector helical sc theresa from the aortic bifurcation to the toes after administration of IV contr ast. Coronal and sagittal reformations were obtained. 3D post-processing of th e images was performed, and the post-processed images were used in interpretat ion. CTA runoff protocol was performed. IV CONTRAST: 100mL of Isovue 370 ORAL CONTRAST: None RADIATION DOSE: Total DLP: 417 mGy*cm FIN DINGS: VESSELS: There are moderate calcified and noncalcified atheroscler otic plaques in the distal aorta. There is no evidence of a flap within the ao rta to suggest a dissection. Right lower extremity: The right common il iac arteries widely patent. The external and internal iliac arteries are widel y patent. Mild atherosclerotic calcification at the common femoral artery with mild associated luminal narrowing. Mild atherosclerotic calcifications of the superficial femoral artery with mild associated luminal narrowing. Moderate a therosclerotic calcifications of the distal right popliteal artery with at albaro st moderate luminal narrowing. There appears to be total occlusion at the tibi al peroneal trunk with distal reconstitution of the posterior tibial artery at the level of the ankle. The peroneal artery appears occluded. Multifocal athe rosclerotic calcifications of the anterior tibial artery with areas of moderat e luminal narrowing. Two-vessel runoff to the ankle via the anterior and poste rior tibial arteries. Left lower extremity: The left common iliac arterie s widely patent. The left internal No iliac arteries are widely patent. The le ft common femoral artery and left SFA demonstrates mild atherosclerotic calcif ications. Mild multifocal luminal narrowing of the mid SFA. The distal SFA is widely patent. Moderate athetotic calcifications of the left popliteal artery results in multifocal moderate luminal narrowing. Moderate athetotic calcifica tions of the anterior tibial artery and tibioperoneal trunk. The peroneal grisel ry is diminutive. Two-vessel runoff to the ankle via the anterior and posterio r tibial arteries. NON-VASCULAR: PELVIC ORGANS/BLADDER: Decompressed bl adder. PERITONEUM / RETROPERITONEUM: No free air or fluid. LYMPH NODES: N o lymphadenopathy. GI TRACT: No distention or wall thickening. BONES A ND SOFT TISSUES: No acute osseous injury. ORIF hardware of the left proximal f emur. Bilateral gluteal injection granulomas. 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 Two vessel runoff on the right via the post erior and anterior tibial arteries. Moderate luminal narrowing at the right and left popliteal arteries. Two vessel runoff to the ankle on the left vi a the anterior and posterior tibial arteries. Signed by: Madalyn Dewey MD o n 03/19/2020 3:56 PM Dictated By: MADALYN DEWEY MD 55 Transcribed By: TROY on 03/19/201555 COPY TO: ROB VEGA MD FOOT LEFT DNUTAPPZ7961-88-50 10:12:00 [place] [address] Patient Name: VICKI ESPARZA MR #: [id number] : 1940 Age/Sex: 79/F Req #: [id number] Adm Physician: ROB VEGA MD Ordered by: ROB VEGA MD Report #: [id number] Location: MED/SURG [facility]/Bed: 107 Procedure: [id number] DX/FOOT LEF T COMPLETE Exam Date: 03/18/20 Exam Time: 949 REPORT STATUS: Signed TECHNIQUE: 3 vi ews of the left foot HISTORY: BIG TOE PAIN 20200318. CO MPARISON: None. IMPRESSION: No acute displaced fracture or dislocation. Mild scattered joint space narrowing, most prominent at the interphalangeal joints. Vascular calcifications. Plantar enthesopathy at the calcaneus. S igned by: Yasmani Mcdermott MD on 03/18/2020 10:13 AM Dictated By: YASMANI TOMAS DO 1013 Transcribe d By: TROY on 03/18/20 1013 COPY TO: ROB VEGA MD Serum or plasma uric acid measurement (mass/volume)2020-03-18 03:44:00* Test Item Value Reference Range Interpretation Comments Uric Acid (test code = 3084-1) 6.2 2.6-8.0 [facility]um or plasma uric acid measurement (mass/volume)2020-03-18 03:44:00* Test Item Value Reference Range Interpretation Comments Uric Acid (test code = 3084-1) 6.2 2.6-8.0 [facility]CHE[facility])2020-03-17 18:07:00 [place] [address] Patient Name: VICKI ESPARZA MR #: [id number] : 1940 Age/Sex: 79/F Req #: [id number] Adm Physician: Ordered by: IMANI HODGE DO Report #: [id number] Location: ER Room/Bed: Procedure: [id number] DX/CHES T SINGLE (PORTABLE) Exam Date: 03/17/20 Exam Time: 1 750 REPORT STATUS: Signed Examin ation: Single AP view of the chest. COMPARISON: Chest two views 11/17/2019 INDICATION: Weakness and sepsis IMPRESSION: Exam limited by patient rotation. 1. Lines and Tubes: None 2. Lungs are grossly clear. No co nsolidation or effusion. 3. Cardiomediastinal silhouette is normal. Pulmona ry vasculature is normal. Atherosclerotic calcification of the aortic arch. 4. No acute bony abnormalities. Signed by: Dr. Osmin Dawson M.D. on 03/17/2020 6:08 PM Dictated By: OSMIN DAWSON MD 07 Transcribed By: TROY on 03/17/201807 COPY TO: IMANI HODGE DO Fluoroscopic procedure less than one hour cdkxyapy4732-02-62 16:30:00* Test Item Value Reference Range Interpretation Comments Lactic Acid Level (test code = Lactic Acid Level) 1.1 0.5- 2.0 [facility] CenterBlood wfuonwn0932-69-94 15:20:00* Test Item Value Reference Range Interpretation Comments Blood Culture (test code = 73170741) NO GROWTH AFTER 5 DAYS, FINAL REPORT [facility] CenterTriglycerides Gagyw4356-32-83 06:32:00* Test Item Value Reference Range Interpretation Comments Triglycerides Level (test code = 2571-8) 111 0-149 [facility] CenterCholesterol Xkino3252-10-51 06:32:00* Test Item Value Reference Range Interpretation Comments Cholesterol Level (test code = 2093-3) 184 0-199 Less than 200 mg/dL Low Upbk419 - 239 mg/dL Borderline Onai860 m g/dl and greater High Risk [facility] CenterLDL Tqugypbywwt6932-53-40 06:32:00* Test Item Value Reference Range Interpretation Comments LDL Cholesterol (test code = 2089-1) 106 60-130 [facility] CenterHDL Ailslcdpmld5875-87-58 06:32:00* Test Item Value Reference Range Interpretation Comments HDL Cholesterol (test code = 2085-9) 56 40-60 [facility] CenterCholesterol/HDL Xqraw4785-21-66 06:32:00 * Test Item Value Reference Range Interpretation Comments Cholesterol/HDL Ratio (test code = 9830-1) 3.3 3.0-3.6 [facility] CenterCreatine Kinase HL6427-87-49 04:01:00* Test Item Value Reference Range Interpretation Comments Creatine Kinase MB (test code = 73479-4) 1.30 0-5.0 [facility] CenterTroponin I4733-13-90 04:01:00* Test Item Value Reference Range Interpretation Comments Troponin I (test code = ILA0507) < 0.001 0-0.300 [facility] CenterCreatine Wrymlw6181-05-16 03:52:00* Test Item Value Reference Range Interpretation Comments Creatine Kinase (test code = 2157-6) 26 29-168 L [facility] CenterB-Type Natriuretic Wubvcvy2284-47-91 11:19:00* Test Item Value Reference Range Interpretation Comments B-Type Natriuretic Peptide (test code = 20857-0) 52.5 0-100 [facility] CenterD-Dimer Quantitative (PE/DVT)2019-11-17 11:03:00* Test Item Value Reference Range Interpretation Comments D-Dimer Quantitative (PE/DVT) (test code = 52373-0) 0.72 0. 00-0.45 H As with all in vitro diagnostic tests, the test results should be interpreted by the physician in conjunction with clinical findings and other test results.Test results are reported in NEW D-dimer units(ug/mLFEU).[facility] Hospitalodium Hchva4084-65-89 11:01:00* Test Item Value Reference Range Interpretation Comments Sodium Level (test code = 2951-2) 142 136-145 [facility] CenterPotassium Kqiak4147-48-14 11:01:00* Test Item Value Reference Range Interpretation Comments Potassium Level (test code = 2823-3) 4.2 3.5-5.1 [facility] CenterChloride Ljusw8884-50-60 11:01:00* Test Item Value Reference Range Interpretation Comments Chloride Level (test code = 2075-0) 104 98-107 [facility] CenterCarbon Dioxide Kjewx1519-11-07 11:01:00* Test Item Value Reference Range Interpretation Comments Carbon Dioxide Level (test code = 2028-9) 27 22-29 [facility] CenterAnion Vzg7208-14-19 11:01:00* Test Item Value Reference Range Interpretation Comments Anion Gap (test code = 09582-0) 15.2 8-16 [facility] CenterBlood Urea Uxclalyt5424-74-17 11:01:00* Test Item Value Reference Range Interpretation Comments Blood Urea Nitrogen (test code = 3094-0) 24 7-26 [facility] CenterCreatinine2020-02-16 11:01:00* Test Item Value Reference Range Interpretation Comments Creatinine (test code = 2160-0) 1.26 0.57-1.11 H [facility] CenterBUN/Creatinine Lyoaf3237-17-15 11:01:00* Test Item Value Reference Range Interpretation Comments BUN/Creatinine Ratio (test code = 3097-3) 19 6-25 [facility] CenterEstimat Glomerular Filtration Rate 2019-11-17 11:01:00* Test Item Value Reference Range Interpretation Comments Estimat Glomerular Filtration Rate (test code = 213970526) 41 >60 L Ranges were taken from the National Kidney Disease Education Program and the [facility] Foundation literature.Reference ranges:60 or greater: Jrxmei88-74 ( for 3 consecutive months): Chronic kidney disease 15 or less: Kidney failureConnally Memorial Medical CenterGlucose Ngnui9909-56-75 11:01:00* Test Item Value Reference Range Interpretation Comments Glucose Level (test code = RVH9989) 83 74-118 [facility] CenterCalcium Xgprh1179-66-38 11:01:00* Test Item Value Reference Range Interpretation Comments Calcium Level (test code = 27874-2) 10.3 8.4-10.2 H [facility] CenterMagnesium Tvvdx9232-82-84 11:01:00* Test Item Value Reference Range Interpretation Comments Magnesium Level (test code = 67673-0) 2.1 1.3-2.1 [facility] CenterTotal Eialhvsoz0596-80-51 11:01:00* Test Item Value Reference Range Interpretation Comments Total Bilirubin (test code = 1975-2) 0.6 0.2-1.2 [facility] CenterAspartate Amino Transf (AST/SGOT) 2019-11-17 11:01:00* Test Item Value Reference Range Interpretation Comments Aspartate Amino Transf (AST/SGOT) (test code = Aspartate Amino Transf (AST/SGOT)) 35 5-34 H [facility] CenterAlanine Aminotransferase (ALT/SGPT) 2019-11-17 11:01:00* Test Item Value Reference Range Interpretation Comments Alanine Aminotransferase (ALT/SGPT) (test code = 1742-6) 23 0-55 [facility] CenterTotal Ydmyhcr2331-49-93 11:01:00* Test Item Value Reference Range Interpretation Comments Total Protein (test code = 2885-2) 6.3 6.5-8.1 L [facility] CenterAlbumin2020-02-16 11:01:00* Test Item Value Reference Range Interpretation Comments Albumin (test code = 1751-7) 3.4 3.5-5.0 L [facility] CenterGlobulin2020-02-16 11:01:00* Test Item Value Reference Range Interpretation Comments Globulin (test code = 34154-1) 2.9 2.3-3.5 [facility] CenterAlbumin/Globulin Rvmhe7233-16-36 11:01:00 * Test Item Value Reference Range Interpretation Comments Albumin/Globulin Ratio (test code = 1759-0) 1.2 0.8-2.0 [facility] CenterAlkaline Oqjrcztvbtc1583-27-77 11:01:00* Test Item Value Reference Range Interpretation Comments Alkaline Phosphatase (test code = 6768-6) 74 40-150 [facility] CenterWhite Blood Jajeg8952-47-18 10:52:00* Test Item Value Reference Range Interpretation Comments White Blood Count (test code = 6690-2) 13.30 4.8-10.8 H [facility] CenterRed Blood Oxzbo3390-64-33 10:52:00* Test Item Value Reference Range Interpretation Comments Red Blood Count (test code = 789-8) 4.76 3.6-5.1 [facility] CenterHemoglobin2020-02-16 10:52:00* Test Item Value Reference Range Interpretation Comments Hemoglobin (test code = 25495-5) 14.3 12.0-16.0 [facility] CenterHematocrit2020-02-16 10:52:00* Test Item Value Reference Range Interpretation Comments Hematocrit (test code = 4544-3) 44.1 34.2-44.1 [facility] CenterMean Corpuscular Tekqob9237-30-64 10:52:00* Test Item Value Reference Range Interpretation Comments Mean Corpuscular Volume (test code = 787-2) 92.6 81-99 [facility] CenterMean Corpuscular Aaacnjtwmv1418-73-64 10:52:00* Test Item Value Reference Range Interpretation Comments Mean Corpuscular Hemoglobin (test code = 785-6) 30.0 28-32 [facility] CenterMean Corpuscular Hemoglobin Concent 2019-11-17 10:52:00* Test Item Value Reference Range Interpretation Comments Mean Corpuscular Hemoglobin Concent (test code = 786-4) 32.4 31-35 [facility] CenterRed Cell Distribution Mywuz6823-08-74 10:52:00* Test Item Value Reference Range Interpretation Comments Red Cell Distribution Width (test code = 11977-7) 13.9 11.7 -14.4 [facility] CenterPlatelet Hpwar9045-62-17 10:52:00* Test Item Value Reference Range Interpretation Comments Platelet Count (test code = 777-3) 354 140-360 [facility] CenterNeutrophils (%) (Auto)2019-11-17 10:52:00 * Test Item Value Reference Range Interpretation Comments Neutrophils (%) (Auto) (test code = 39847-8) 72.5 38.7-80.0 [facility] CenterLymphocytes (%) (Auto)2019-11-17 10:52:00 * Test Item Value Reference Range Interpretation Comments Lymphocytes (%) (Auto) (test code = 736-9) 18.6 18.0-39.1 [facility] CenterMonocytes (%) (Auto)2019-11-17 10:52:00* Test Item Value Reference Range Interpretation Comments Monocytes (%) (Auto) (test code = 5905-5) 7.9 4.4-11.3 [facility] CenterEosinophils (%) (Auto)2019-11-17 10:52:00 * Test Item Value Reference Range Interpretation Comments Eosinophils (%) (Auto) (test code = 713-8) 0.1 0.0-6.0 [facility] CenterBasophils (%) (Auto)2019-11-17 10:52:00* Test Item Value Reference Range Interpretation Comments Basophils (%) (Auto) (test code = 706-2) 0.3 0.0-1.0 [facility] CenterIM GRANULOCYTES %2019-11-17 10:52:00* Test Item Value Reference Range Interpretation Comments IM GRANULOCYTES % (test code = IM GRANULOCYTES %) 0.6 0.0- 1.0 [facility] CenterNeutrophils # (Auto)2019-11-17 10:52:00* Test Item Value Reference Range Interpretation Comments Neutrophils # (Auto) (test code = 751-8) 9.6 2.1-6.9 H [facility] CenterLymphocytes # (Auto)2019-11-17 10:52:00* Test Item Value Reference Range Interpretation Comments Lymphocytes # (Auto) (test code = 34468-1) 2.5 1.0-3.2 [facility] CenterMonocytes # (Auto)2019-11-17 10:52:00* Test Item Value Reference Range Interpretation Comments Monocytes # (Auto) (test code = 742-7) 1.1 0.2-0.8 H [facility] CenterEosinophils # (Auto)2019-11-17 10:52:00* Test Item Value Reference Range Interpretation Comments Eosinophils # (Auto) (test code = 711-2) 0.0 0.0-0.4 [facility] CenterBasophils # (Auto)2019-11-17 10:52:00* Test Item Value Reference Range Interpretation Comments Basophils # (Auto) (test code = 704-7) 0.0 0.0-0.1 [facility] CenterAbsolute Immature Granulocyte (auto 2019-11-17 10:52:00* Test Item Value Reference Range Interpretation Comments Absolute Immature Granulocyte (auto (idania t code = Absolute Immature Granulocyte (auto) 0.08 0-0.1 [facility] CenterCHEST 2 WGOHK3136-50-07 09:56:00 [place] [address] Patient Name: VICKI ESPARZA MR #: [id number] : [birth year] Age/Sex: 79/F Req #: [id number] Adm Physician: Ordered by: RULA GRANDA MD Report #: [id number] Location: ER Room/Bed: Procedure: [id number] DX/CHEST 2 VIEWS Exam Date: 11/17/19 Exam Time: 0945 REPORT STATUS: Signed EXAMINATI ON: CHEST 2 VIEWS INDICATION: Left chest pain. COMPARISON: FINDINGS: TUBES and LINES: None. LUNGS: Lungs are mildly h yperinflated. Lungs are clear. There is no evidence of pneumonia or pulmonar y edema. PLEURA: No pleural effusion or pneumothorax. Biapical pleural-par enchymal scarring. HEART AND MEDIASTINUM: The cardiomediastinal silhouet te is unremarkable. There are atherosclerotic calcifications within the aorta. BONES AND SOFT TISSUES: No acute osseous lesion. Soft tissues are unre markable. UPPER ABDOMEN: No free air under the diaphragm. Surgical clips pr ojected on the right upper quadrant. IMPRESSION: No acute thoracic abn ormality. Signed by: Dr. Doris Ham M.D. on 11/17/2019 9:58 AM Dictated By: NANNETTE HAM MD, MD 7 Transcribed By: TROY on 11/17/19957 COPY TO: RULA GRANDA MD Fibrin D-dimer DDU measurement in platelet poor plasma (mass/volume)2019-11-17 09:28:00* Test Item Value Reference Range Interpretation Comments D-Dimer Quantitative (PE/DVT) (test code = 28127-0) 0.72 0. 00-0.45 As with all in vitro diagnostic tests, the test results should be interpreted by the physician in conjunction with clinical findings and other test results.Test results are reported in NEW D-dimer units(ug/mLFEU).[facility] CenterFibrin D-dimer DDU measurement in platelet poor plasma (mass/volume)2019-11-17 09:28:00* Test Item Value Reference Range Interpretation Comments D-Dimer Quantitative (PE/DVT) (test code = 90563-6) 0.72 0. 00-0.45 As with all in vitro diagnostic tests, the test results should be interpreted by the physician in conjunction with clinical findings and other test results.Test results are reported in NEW D-dimer units(ug/mLFEU).[facility] CenterUrine ROU3807-46-65 15:19:00* Test Item Value Reference Range Interpretation Comments Urine WBC (test code = 5821-4) 6-10 0-5 H [facility] CenterUrine CIM6748-01-26 15:19:00* Test Item Value Reference Range Interpretation Comments Urine RBC (test code = 33157-7) 11-20 0-5 H [facility] CenterUrine Sytgcfly0151-69-41 15:19:00* Test Item Value Reference Range Interpretation Comments Urine Bacteria (test code = 45806-0) MODERATE NONE H [facility] CenterUrine Epithelial Nltiz5067-90-83 15:19:00 * Test Item Value Reference Range Interpretation Comments Urine Epithelial Cells (test code = 08863-9) MODERATE NONE [facility] CenterUrine BRQ4426-19-62 15:19:00* Test Item Value Reference Range Interpretation Comments Urine WBC (test code = 5821-4) 6-10 0-5 H [facility] CenterUrine DBR8354-69-88 15:19:00* Test Item Value Reference Range Interpretation Comments Urine RBC (test code = 81808-8) 11-20 0-5 H [facility] CenterUrine Yfsytkek6724-99-06 15:19:00* Test Item Value Reference Range Interpretation Comments Urine Bacteria (test code = 01575-9) MODERATE NONE H [facility] CenterUrine Epithelial Eekym4394-49-27 15:19:00 * Test Item Value Reference Range Interpretation Comments Urine Epithelial Cells (test code = 04010-0) MODERATE NONE [facility] CenterCT ABDOMEN/PELVIS QQ8505-88-89 14:30:00 [facility] [address] [place] [address] Patient Name: VICKI ESPARZA MR #: [id number] : [birth year] Age/Sex: 78/F Req #: [id number] Adm Physician: Ordered by: STEF SCALES [employer]ESS Report #: [id number] Location: ER Room/Bed: Procedure: [id number]/CT ABDOMEN/PELVIS WO Exam Date: 08/17/19 Exam Time: 1405 REPORT STATUS: Signed EXAM: CT Abdomen and Pelvis WITHOUT contrast INDICATION: Dysuria. Left back pain that radiates to the left lower quadrant. COMPARISON: None. TECHNIQUE: Abdomen and pelvis were scanned utilizing a multidetector helical scanner fro m the lung base to the pubic symphysis without administration of IV contrast. Absence of intravenous contrast decreases sensitivity for detection of focal l esions and vascular pathology. Coronal and sagittal reformations were obtained . Routine protocol was performed. IV CONTRAST: None. ORAL CONTRAST: Water RADIATION DOSE: Total DLP: 271.74 mGy*cm Estimated effective dose: (DLP x 0.015 x size factor) mSv COMPLICATIONS: None FINDINGS: LINES and TUBES: None. LOWER T HORAX: There is bibasilar atelectasis. Small hiatal hernia. HEPATOBILIARY: No focal hepatic lesions. Common bile duct is dilated up to 1.3 cm in di ameter in the susie hepatis region. GALLBLADDER: There are cholecystectomy clips. SPLEEN: No splenomegaly. PANCREAS: No focal masses or yoshi latanya dilatation. ADRENALS: No adrenal nodules KIDNEYS/URETERS: St atus post right nephrectomy, with significant stranding in the nephrectomy bed . No hydronephrosis or definite mass in the left kidney. Punctate nonobstructi ng calculus in the upper pole and lower interpolar region of the left kidney o n coronal image 52. GI TRACT: No abnormal distention, wall thickening, or e vidence of bowel obstruction. Appendix is nonvisualized. PELVIC ORG ANS/BLADDER: The uterus is absent. LYMPH NODES: No lymphadenopathy. V ESSELS: There is severe atherosclerotic disease in the aorta and major arteria l branches. PERITONEUM / RETROPERITONEUM: No free air or fluid. 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 Status post ORIF of the left femoral neck with threaded screws which appear intact. SOFT TISSUES: Bilateral coarse s ubcutaneous calcifications in the lower flank and upper gluteal regions. IMPRESSION: 1. No acute abdominal pelvic abnormality. 2. Two punctate no nobstructing left renal calculi. No obstructive uropathy. 3. Status post righ t nephrectomy. 4. Moderate dilatation of the common bile duct likely reservoi r effect status post cholecystectomy. Signed by: Dr. Doris Ham M.D. on 08/17/2019 2:39 PM Dictated By: NANNETTE lake Signed By: NANNETTE HAM MD, MD on 08/17/191438 Transcribed By: TROY on 08/17/191438 COPY TO: STEF SCALES NP Sodium Level 2019-08-17 14:27:00* Test Item Value Reference Range Interpretation Comments Sodium Level (test code = 2951-2) 140 136-145 [facility] CenterPotassium Hkcgu9606-52-50 14:27:00* Test Item Value Reference Range Interpretation Comments Potassium Level (test code = 2823-3) 3.7 3.5-5.1 [facility] CenterChloride Codxp8557-54-97 14:27:00* Test Item Value Reference Range Interpretation Comments Chloride Level (test code = 2075-0) 103 98-107 [facility] CenterCarbon Dioxide Yebny2327-70-71 14:27:00* Test Item Value Reference Range Interpretation Comments Carbon Dioxide Level (test code = 2028-9) 24 22-29 [facility] CenterAnion Xxk0374-96-48 14:27:00* Test Item Value Reference Range Interpretation Comments Anion Gap (test code = 08726-8) 16.7 8-16 H [facility] CenterBlood Urea Rraownht6212-73-99 14:27:00* Test Item Value Reference Range Interpretation Comments Blood Urea Nitrogen (test code = 3094-0) 14 7-26 [facility] CenterCreatinine2019-11-16 14:27:00* Test Item Value Reference Range Interpretation Comments Creatinine (test code = 2160-0) 1.39 0.57-1.11 H [facility] CenterBUN/Creatinine Oltsx1945-59-43 14:27:00* Test Item Value Reference Range Interpretation Comments BUN/Creatinine Ratio (test code = 3097-3) 10 6-25 [facility] CenterEstimat Glomerular Filtration Rate 2019-08-17 14:27:00* Test Item Value Reference Range Interpretation Comments Estimat Glomerular Filtration Rate (test code = 167999768) 37 >60 L Ranges were taken from the National Kidney Disease Education Program and the [facility] literature.Reference ranges:60 or greater: Hskxgq05-89 ( for 3 consecutive months): Chronic kidney disease 15 or less: Kidney failureConnally Memorial Medical CenterGlucose Ckzne8018-49-85 14:27:00* Test Item Value Reference Range Interpretation Comments Glucose Level (test code = QVE2116) 107 74-118 [facility] CenterCalcium Klzyb0559-62-38 14:27:00* Test Item Value Reference Range Interpretation Comments Calcium Level (test code = 65176-2) 10.9 8.4-10.2 H [facility] CenterTotal Xlbmmamgi3745-13-66 14:27:00* Test Item Value Reference Range Interpretation Comments Total Bilirubin (test code = 1975-2) 0.4 0.2-1.2 [facility] CenterAspartate Amino Transf (AST/SGOT) 2019-08-17 14:27:00* Test Item Value Reference Range Interpretation Comments Aspartate Amino Transf (AST/SGOT) (test code = Aspartate Amino Transf (AST/SGOT)) 27 5-34 [facility] CenterAlanine Aminotransferase (ALT/SGPT) 2019-08-17 14:27:00* Test Item Value Reference Range Interpretation Comments Alanine Aminotransferase (ALT/SGPT) (test code = 1742-6) 14 0-55 [facility] CenterTotal Hvbntnu7012-61-73 14:27:00* Test Item Value Reference Range Interpretation Comments Total Protein (test code = 2885-2) 6.6 6.5-8.1 [facility] CenterAlbumin2019-11-16 14:27:00* Test Item Value Reference Range Interpretation Comments Albumin (test code = 1751-7) 3.5 3.5-5.0 [facility] CenterGlobulin2019-11-16 14:27:00* Test Item Value Reference Range Interpretation Comments Globulin (test code = 24140-3) 3.1 2.3-3.5 [facility] CenterAlbumin/Globulin Xnvow1132-74-81 14:27:00 * Test Item Value Reference Range Interpretation Comments Albumin/Globulin Ratio (test code = 1759-0) 1.1 0.8-2.0 [facility] CenterAlkaline Abbgwphvkfh0515-18-40 14:27:00* Test Item Value Reference Range Interpretation Comments Alkaline Phosphatase (test code = 6768-6) 80 40-150 [facility] CenterWhite Blood Bkfzq6492-30-52 13:56:00* Test Item Value Reference Range Interpretation Comments White Blood Count (test code = 6690-2) 11.08 4.8-10.8 H [facility] CenterRed Blood Qnuns2756-48-86 13:56:00* Test Item Value Reference Range Interpretation Comments Red Blood Count (test code = 789-8) 4.68 3.6-5.1 [facility] CenterHemoglobin2019-11-16 13:56:00* Test Item Value Reference Range Interpretation Comments Hemoglobin (test code = 35812-7) 13.7 12.0-16.0 [facility] CenterHematocrit2019-11-16 13:56:00* Test Item Value Reference Range Interpretation Comments Hematocrit (test code = 4544-3) 42.5 34.2-44.1 [facility] CenterMean Corpuscular Eyrgij1605-80-21 13:56:00* Test Item Value Reference Range Interpretation Comments Mean Corpuscular Volume (test code = 787-2) 90.8 81-99 [facility] CenterMean Corpuscular Acwgayvnpr9893-95-59 13:56:00* Test Item Value Reference Range Interpretation Comments Mean Corpuscular Hemoglobin (test code = 785-6) 29.3 28-32 [facility] Hemoglobin Concent 2019-08-17 13:56:00* Test Item Value Reference Range Interpretation Comments Mean Corpuscular Hemoglobin Concent (test code = 786-4) 32.2 31-35 [facility] CenterRed Cell Distribution Wcqyf8509-32-09 13:56:00* Test Item Value Reference Range Interpretation Comments Red Cell Distribution Width (test code = 96242-3) 12.6 11.7 -14.4 [facility] CenterPlatelet Tatmg1565-01-69 13:56:00* Test Item Value Reference Range Interpretation Comments Platelet Count (test code = 777-3) 343 140-360 [facility] CenterNeutrophils (%) (Auto)2019-08-17 13:56:00 * Test Item Value Reference Range Interpretation Comments Neutrophils (%) (Auto) (test code = 23959-5) 73.7 38.7-80.0 [facility] CenterLymphocytes (%) (Auto)2019-08-17 13:56:00 * Test Item Value Reference Range Interpretation Comments Lymphocytes (%) (Auto) (test code = 736-9) 18.5 18.0-39.1 [facility] CenterMonocytes (%) (Auto)2019-08-17 13:56:00* Test Item Value Reference Range Interpretation Comments Monocytes (%) (Auto) (test code = 5905-5) 6.0 4.4-11.3 [facility] CenterEosinophils (%) (Auto)2019-08-17 13:56:00 * Test Item Value Reference Range Interpretation Comments Eosinophils (%) (Auto) (test code = 713-8) 0.5 0.0-6.0 [facility] CenterBasophils (%) (Auto)2019-08-17 13:56:00* Test Item Value Reference Range Interpretation Comments Basophils (%) (Auto) (test code = 706-2) 0.8 0.0-1.0 [facility] CenterIM GRANULOCYTES %2019-08-17 13:56:00* Test Item Value Reference Range Interpretation Comments IM GRANULOCYTES % (test code = IM GRANULOCYTES %) 0.5 0.0- 1.0 [facility] CenterNeutrophils # (Auto)2019-08-17 13:56:00* Test Item Value Reference Range Interpretation Comments Neutrophils # (Auto) (test code = 751-8) 8.2 2.1-6.9 H [facility] CenterLymphocytes # (Auto)2019-08-17 13:56:00* Test Item Value Reference Range Interpretation Comments Lymphocytes # (Auto) (test code = 33791-9) 2.1 1.0-3.2 [facility] CenterMonocytes # (Auto)2019-08-17 13:56:00* Test Item Value Reference Range Interpretation Comments Monocytes # (Auto) (test code = 742-7) 0.7 0.2-0.8 [facility] CenterEosinophils # (Auto)2019-08-17 13:56:00* Test Item Value Reference Range Interpretation Comments Eosinophils # (Auto) (test code = 711-2) 0.1 0.0-0.4 [facility] CenterBasophils # (Auto)2019-08-17 13:56:00* Test Item Value Reference Range Interpretation Comments Basophils # (Auto) (test code = 704-7) 0.1 0.0-0.1 [facility] CenterAbsolute Immature Granulocyte (auto 2019-08-17 13:56:00* Test Item Value Reference Range Interpretation Comments Absolute Immature Granulocyte (auto (idania t code = Absolute Immature Granulocyte (auto) 0.05 0-0.1 [facility] CenterUrine Wcuhe0516-23-51 13:56:00* Test Item Value Reference Range Interpretation Comments Urine Color (test code = 5778-6) YELLOW YELLOW [facility] CenterUrine Vhigsyz5473-35-44 13:56:00* Test Item Value Reference Range Interpretation Comments Urine Clarity (test code = 89518-4) CLEAR CLEAR [facility] CenterUrine Specific Lukoqva8965-97-96 13:56:00 * Test Item Value Reference Range Interpretation Comments Urine Specific [place] (test code = 5811-5) 1.010 1.010-1.02 5 [facility] CenterUrine lK1528-18-73 13:56:00* Test Item Value Reference Range Interpretation Comments Urine pH (test code = 94493-6) 6 5-7 [facility] CenterUrine Leukocyte Tptjicpm8523-79-37 13:56:00* Test Item Value Reference Range Interpretation Comments Urine Leukocyte Esterase (test code = 77929-2) TRACE NEGATIV E H [facility] CenterUrine Agvxaze0676-55-31 13:56:00* Test Item Value Reference Range Interpretation Comments Urine Nitrite (test code = 02040-9) NEGATIVE NEGATIVE [facility] CenterUrine Symhrua9100-38-94 13:56:00* Test Item Value Reference Range Interpretation Comments Urine Protein (test code = 41545-3) NEGATIVE NEGATIVE [facility] CenterUrine Glucose (UA)2019-08-17 13:56:00* Test Item Value Reference Range Interpretation Comments Urine Glucose (UA) (test code = 78619-4) NEGATIVE NEGATIVE [facility] CenterUrine Zjkiqqx0658-89-43 13:56:00* Test Item Value Reference Range Interpretation Comments Urine Ketones (test code = 42324-6) NEGATIVE NEGATIVE [facility] Lcrassflxmru4049-57-18 13:56:00* Test Item Value Reference Range Interpretation Comments Urine Urobilinogen (test code = 59117-7) 0.2 0.2-1 [facility] CenterUrine Weyqrouyx6999-06-46 13:56:00* Test Item Value Reference Range Interpretation Comments Urine Bilirubin (test code = 1977-8) NEGATIVE NEGATIVE [facility] Hbdsb8195-97-62 13:56:00* Test Item Value Reference Range Interpretation Comments Urine Blood (test code = 64894-5) MODERATE NEGATIVE [facility] CenterUrine Asaiz7532-74-27 13:56:00* Test Item Value Reference Range Interpretation Comments Urine Color (test code = 5778-6) YELLOW YELLOW [facility] CenterUrine Ertlpaz2348-57-51 13:56:00* Test Item Value Reference Range Interpretation Comments Urine Clarity (test code = 99984-4) CLEAR CLEAR [facility] Specific Pqmnnml1360-14-98 13:56:00 * Test Item Value Reference Range Interpretation Comments Urine Specific [place] (test code = 5811-5) 1.010 1.010-1.02 5 [facility] CenterUrine rK1452-82-35 13:56:00* Test Item Value Reference Range Interpretation Comments Urine pH (test code = 63475-7) 6 5-7 [facility] CenterUrine Leukocyte Dgcctmir2219-49-27 13:56:00* Test Item Value Reference Range Interpretation Comments Urine Leukocyte Esterase (test code = 86162-8) TRACE NEGATIV E H [facility] Htrkwkg4772-21-64 13:56:00* Test Item Value Reference Range Interpretation Comments Urine Nitrite (test code = 19723-9) NEGATIVE NEGATIVE [facility] CenterUrine Bkabwgd4434-00-89 13:56:00* Test Item Value Reference Range Interpretation Comments Urine Protein (test code = 86489-8) NEGATIVE NEGATIVE [facility] Glucose (UA)2019-08-17 13:56:00* Test Item Value Reference Range Interpretation Comments Urine Glucose (UA) (test code = 23660-3) NEGATIVE NEGATIVE [facility] Wwkxtzc2840-35-74 13:56:00* Test Item Value Reference Range Interpretation Comments Urine Ketones (test code = 71027-7) NEGATIVE NEGATIVE [facility] Tbonctjqunex2090-64-61 13:56:00* Test Item Value Reference Range Interpretation Comments Urine Urobilinogen (test code = 60668-1) 0.2 0.2-1 [facility] Ustuskrug3257-11-73 13:56:00* Test Item Value Reference Range Interpretation Comments Urine Bilirubin (test code = 1977-8) NEGATIVE NEGATIVE [facility] Hqhpp6254-74-98 13:56:00* Test Item Value Reference Range Interpretation Comments Urine Blood (test code = 29786-4) MODERATE NEGATIVE [facility] CenterBREAST ULTRASOUND PSRPBENDH3414-55-27 16:54:46- BREAST ULTRASOUND BILATERALULTRASOUND OF BOTH BREASTS AND BOTH AXILLA: 01/21/2019CLINICAL: Abnormal mammogram. No prior exams were available for comparison. Real-time ultrasound of both breasts and both axilla was performed. There is a benign 5 mm cyst in the right breast at 12 o'clock 4 cm from the nipple, that may correspond to the mammographic findings. No abnormalities were seen sonographically in the left breast or either axilla. ,IMPRESSION: BENIGN There is no sonographic evidence of malignancy. Patient has been informed that she has areas of dense breast tissue that could make it difficult to find a small cancer. A screening mammogram and supplemental ultrasound for dense breast tissue is recommended in 1 year.Bridgett Granger M.D. dm/:01/21/2019 16:54:46 Processing Tech: Praveena Bess , [facility]-FWletter sent: BIRADS 1-2 Combo FU Letter Ultrasound BI-RADS: 2 BenignDIAG MAMM RIGHT JERRY CAD QFINHAC5830-06-43 16:52:59 - DIAG MAMM RIGHT JERRY CAD DIGITALUNILATERAL RIGHT DIGITAL DIAGNOSTIC MAMMOGRAM 3D/2D WITH CAD: 01/21/2019CLINICAL: Recall from screening. Digital breast tomosynthesis was performed in addition to routine CC and MLO views. Current mammographic images were evaluated by either a [employer] M-Vu or a [employer] CAD (computer aided detection system). Comparison is made to exams dated 01/08/2019 mammogram, 01/01/2018 mammogram, and 12/23/2016 mammogram - [facility]-. The tissue of the right breast is heterogeneously dense. This may lower the sensitivity of mammography. No suspicious mass, architectural distortion, malignant type calcification, or lymph node abnormality detected. IMPRESSION: INCOMPLETE ASSESSMENT: ADDITIONAL IMAGING EVALUATION RECOMMENDEDUltrasound pending for additional evaluation. Bridgett Granger M.D. dm/penrad:01/21/2019 16:52:59 Entry: lc - 01/22/2019 11:42:22Imaging Technologist: Ilene Vail FW, [facility]-Mammogram BI-RADS: 0 IndeterminateSCR MAMM BILATERAL JERRY CAD DIGITAL 2019-01-08 13:02:39 - SCR MAMM BILATERAL JERRY CAD DIGITALBILATERAL DIGITAL SCREENING MAMMOGRAM 3D/2D WITH CAD: 01/08/2019CLINICAL: Asymptomatic. Digital breast tomosynthesis was performed in addition to routine CC and MLO views. Current mammographic images were evaluated by either a [employer] M-Vu or a [employer] CAD (computer aided detection system). Comparison is made to exams dated 01/01/2018 mammogram, 12/23/2016 mammogram, and 12/18/2015 mammogram - [facility]-FW. There are scattered fibroglandular tissues in both breasts. A focal asymmetry that measures 6 mm in the right upper outer quadrant, best seen on the right MLO view slice #27, only 7 cm from the nipple.No suspicious mass, architectural distortion, malignant type calcification, or lymph node abnormality detected in the left breast. IMPRESSION: INCOMPLETE ASSESSMENT: ADDITIONAL IMAGING EVALUATION RECOMME NDEDFocal asymmetry versus superimposition of breast tissue in the right upper o uter quadrant, best seen on the right mediolateral oblique view, slice #27. Spo t compression tomosynthesis and possible ultrasound is recommended.Pranav vera M.D. ss/:01/08/2019 13:02:39 Processing Tech: Tiny TORRES, [facility]-FWletter sent: Additional Imaging Mammogram BI-RADS : 0 IndeterminateCT CERVICAL SPINE [id number] 11:30:00 [place] [address] Patient Name: VICKI ESPARZA MR #: [id number] : 1940 Age/Sex: 77/F Req #: [id number] [facility] Physician: Ordered by: INNA SÁNCHEZ MD Report #: [id number] Location: ER Room/Bed: Procedure: [id number] CT/CT CERVICAL SPINE W O Exam Date: 03/26/18 Exam Time: 1100 REPORT S TATUS: Signed History: Shooting pain left neck Comparison studies: None Technique: Axial images were obtained through the cervical region. Shaw l and sagittal images reconstructed from the axial data. Intravenous contrast: None Findings: Airway: Patent. Atlantoaxial articulation: Int act Alignment: Reversal of normal cervical lordosis centered at C5. M inimal grade 1 anterolisthesis of C3 on C4 and minimal grade 1 retrolisthesis of C5 on C6. Cervicomedullary junction: No abnormalities. Patent foramen ma gnum. Soft tissues: No gross abnormalities. Vertebrae: Bones are mo derately demineralized No fractures, neoplasm or infection. Degenerative changes: Severely degenerated disks at C4-5 and C5-6. 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 No significant spinal canal stenosis. No disc herniations. IMPRESSION: 1. Bones moderately demineralized. No fractures. 2. Severely degenerated d isks at C4-5 and C5-6. 3. Foraminal stenosis at both levels is worse on the l eft at C4-5 and on the right at C5-6. 4. No significant spinal canal stenos is. 5. No disc herniations. Signed by: Dr. Asaf Vieira M.D. on 5:34 PM Dictated By: ASAF VIEIRA MD, MD 173 Transcribed By: TROY on 03/26/181733 COPY TO: INNA SÁNCHEZ MD CT BRAIN WO 2018-03-26 11:25:00 [place] [address] Patient Name: VICKI ESPARZA MR #: [id number] : 1940 Age/Sex: 77/F Req #: [id number] Adm Physician: Ordered by: RUPERTO RYAN [employer] HOST/HOSTESS Report #: [id number] Location: ER Room/Bed: Procedure: [id number] CT/CT BRAIN WO Exam D ate: 03/26/18 Exam Time: 1100 REPORT STATUS: Si gned History:pain in left side of neck Comparison studies:None Techniq ue: Axial images were obtained from the skull base to the vertex. Coronal an d sagittal images reconstructed from the axial data. Intravenous contrast: Non e Findings: Scalp/skull: No abnormalities. Extra-axial spaces: No masses. No fluid collections. Brain sulci: Mildly prominent. Vent ricles: Mild compensatory dilatation. No hydrocephalus. Parenchyma: Scat tered hypodensities in the supratentorial white matter are small vessel ischem ic changes. No masses, hemorrhage, acute or chronic cortical vascular insults. Sellar/suprasellar region: No abnormalities. Craniocervical junction: Pa tent foramen magnum. No Chiari one malformation. Incidental findings: At herosclerotic calcifications in the carotid siphons and distal vertebral arter ies. Impression: No acute abnormalities. Chronic findings: 1. Mild generalized volume loss. 2. Moderate supratentorial white matter small v essel ischemic changes. Signed by: Dr. Asaf Vieira M.D. on 8 5:32 PM Dictated By: ASAF VIEIRA MD, MD 31 Transcribed By: TROY on 03/03 COPY TO: RUPERTO [employer] H[employer]HOSTESS Creatine Kinase MB 2018-02-15 15:14:00* Test Item Value Reference Range Interpretation Comments Creatine Kinase MB (test code = 85399-1) 1.30 0-5.0 [facility] [id number] 15:14:00* Test Item Value Reference Range Interpretation Comments Troponin I (test code = KPE2778) -0.001 0-0.300 [facility] CenterCreatine Kinase WU6915-59-13 15:14:00* Test Item Value Reference Range Interpretation Comments Creatine Kinase MB (test code = 77988-3) 1.30 0-5.0 [facility] [id number] 15:14:00* Test Item Value Reference Range Interpretation Comments Troponin I (test code = JBD2997) -0.001 0-0.300 [facility] CenterCreatine Kinase JZ9750-01-29 15:14:00* Test Item Value Reference Range Interpretation Comments Creatine Kinase MB (test code = 83837-3) 1.30 0-5.0 [place] 78299018-05-17 15:14:00* Test Item Value Reference Range Interpretation Comments Troponin I (test code = OOA3564) -0.001 0-0.300 [facility] CenterCreatine Kinase VG8514-12-56 15:14:00* Test Item Value Reference Range Interpretation Comments Creatine Kinase MB (test code = 33375-4) 1.30 0-5.0 [place] [id number] 15:14:00* Test Item Value Reference Range Interpretation Comments Troponin I (test code = WZC3622) < 0.001 0-0.300 [facility] CenterCreatine Itnrgl5459-54-72 15:08:00* Test Item Value Reference Range Interpretation Comments Creatine Kinase (test code = 2157-6) 41 29-168 [facility] CenterCreatine Mrxbaf4213-07-64 15:08:00* Test Item Value Reference Range Interpretation Comments Creatine Kinase (test code = 2157-6) 41 29-168 [facility] CenterCreatine Dnaaty0627-29-22 15:08:00* Test Item Value Reference Range Interpretation Comments Creatine Kinase (test code = 2157-6) 41 29-168 [facility] CenterCreatine Wwtijr3503-69-05 15:08:00* Test Item Value Reference Range Interpretation Comments Creatine Kinase (test code = 2157-6) 41 29-168 [facility] CenterB-Type Natriuretic Qlfaflw9368-16-17 14:23:00* Test Item Value Reference Range Interpretation Comments B-Type Natriuretic Peptide (test code = 93733-5) 288.6 0-100 H [facility] CenterB-Type Natriuretic Wdcohjs5739-43-66 14:23:00* Test Item Value Reference Range Interpretation Comments B-Type Natriuretic Peptide (test code = 91932-1) 288.6 0-100 H [facility] CenterB-Type Natriuretic Srsvwjw9347-08-40 14:23:00* Test Item Value Reference Range Interpretation Comments B-Type Natriuretic Peptide (test code = 84898-9) 288.6 0-100 H [facility] CenterB-Type Natriuretic Gvjsttk3301-22-60 14:23:00* Test Item Value Reference Range Interpretation Comments B-Type Natriuretic Peptide (test code = 73624-6) 288.6 0-100 [facility] Txcwq6342-95-20 12:24:00* Test Item Value Reference Range Interpretation Comments Sodium Level (test code = 2951-2) 142 136-145 [facility] CenterPotassium Bkfam8377-08-08 12:24:00* Test Item Value Reference Range Interpretation Comments Potassium Level (test code = 2823-3) 3.6 3.5-5.1 [facility] CenterChloride Podus7840-97-98 12:24:00* Test Item Value Reference Range Interpretation Comments Chloride Level (test code = 2075-0) 104 98-107 [facility] CenterCarbon Dioxide Puukb7292-95-31 12:24:00* Test Item Value Reference Range Interpretation Comments Carbon Dioxide Level (test code = 2028-9) 27 22-29 [facility] CenterAnion Pru2115-76-42 12:24:00* Test Item Value Reference Range Interpretation Comments Anion Gap (test code = 25037-9) 14.6 8-16 [facility] CenterBlood Urea Peoujiqb3145-44-67 12:24:00* Test Item Value Reference Range Interpretation Comments Blood Urea Nitrogen (test code = 3094-0) 13 7-26 [facility] CenterCreatinine2018-05-17 12:24:00* Test Item Value Reference Range Interpretation Comments Creatinine (test code = 2160-0) 1.31 0.57-1.11 H [facility] CenterBUN/Creatinine Wdbxr0088-99-92 12:24:00* Test Item Value Reference Range Interpretation Comments BUN/Creatinine Ratio (test code = 3097-3) 10 6-25 [facility] CenterEstimat Glomerular Filtration Rate 2018-02-15 12:24:00* Test Item Value Reference Range Interpretation Comments Estimat Glomerular Filtration Rate (test code = 54131-0) 39 >60 L Ranges were taken from the National Kidney Disease Education Program and the [facility] literature.Reference ranges:60 or greater: Eibvhl18-73 ( for 3 consecutive months): Chronic kidney disease 15 or less: Kidney failureConnally Memorial Medical CenterGlucose Zxhtc0792-99-91 12:24:00* Test Item Value Reference Range Interpretation Comments Glucose Level (test code = IBV9837) 95 74-118 [facility] CenterCalcium Wevmi8054-52-44 12:24:00* Test Item Value Reference Range Interpretation Comments Calcium Level (test code = 44741-6) 10.5 8.4-10.2 H [facility] CenterTotal Foabodriv3728-30-87 12:24:00* Test Item Value Reference Range Interpretation Comments Total Bilirubin (test code = 1975-2) 0.8 0.2-1.2 [facility] CenterAspartate Amino Transf (AST/SGOT) 2018-02-15 12:24:00* Test Item Value Reference Range Interpretation Comments Aspartate Amino Transf (AST/SGOT) (test code = Aspartate Amino Transf (AST/SGOT)) 16 5-34 [facility] CenterAlanine Aminotransferase (ALT/SGPT) 2018-02-15 12:24:00* Test Item Value Reference Range Interpretation Comments Alanine Aminotransferase (ALT/SGPT) (test code = 1742-6) 9 0-55 [facility] CenterTotal Bmnqrsq9497-33-39 12:24:00* Test Item Value Reference Range Interpretation Comments Total Protein (test code = 2885-2) 6.6 6.5-8.1 [facility] CenterAlbumin2018-05-17 12:24:00* Test Item Value Reference Range Interpretation Comments Albumin (test code = 1751-7) 3.1 3.5-5.0 L [facility] CenterGlobulin2018-05-17 12:24:00* Test Item Value Reference Range Interpretation Comments Globulin (test code = 37033-2) 3.5 2.3-3.5 [facility] CenterAlbumin/Globulin Nklnq2849-17-35 12:24:00 * Test Item Value Reference Range Interpretation Comments Albumin/Globulin Ratio (test code = 1759-0) 0.9 0.8-2.0 [facility] CenterAlkaline Tcqfnbwpbjv4846-44-13 12:24:00* Test Item Value Reference Range Interpretation Comments Alkaline Phosphatase (test code = 6768-6) 72 40-150 [facility]odium Nivkt8083-52-75 12:24:00* Test Item Value Reference Range Interpretation Comments Sodium Level (test code = 2951-2) 142 136-145 [facility] CenterPotassium Ekvao1322-66-00 12:24:00* Test Item Value Reference Range Interpretation Comments Potassium Level (test code = 2823-3) 3.6 3.5-5.1 [facility] CenterChloride Gnity6023-00-63 12:24:00* Test Item Value Reference Range Interpretation Comments Chloride Level (test code = 2075-0) 104 98-107 [facility] CenterCarbon Dioxide Fvqub6550-97-50 12:24:00* Test Item Value Reference Range Interpretation Comments Carbon Dioxide Level (test code = 2028-9) 27 22-29 [facility] CenterAnion Pfn5666-72-87 12:24:00* Test Item Value Reference Range Interpretation Comments Anion Gap (test code = 10263-0) 14.6 8-16 [facility] CenterBlood Urea Kyrbolzz8007-23-26 12:24:00* Test Item Value Reference Range Interpretation Comments Blood Urea Nitrogen (test code = 3094-0) 13 7-26 [facility] CenterCreatinine2018-05-17 12:24:00* Test Item Value Reference Range Interpretation Comments Creatinine (test code = 2160-0) 1.31 0.57-1.11 H [facility] CenterBUN/Creatinine Kappk3463-16-19 12:24:00* Test Item Value Reference Range Interpretation Comments BUN/Creatinine Ratio (test code = 3097-3) 10 6-25 [facility] CenterEstimat Glomerular Filtration Rate 2018-02-15 12:24:00* Test Item Value Reference Range Interpretation Comments Estimat Glomerular Filtration Rate (test code = 25938-7) 39 >60 L Ranges were taken from the National Kidney Disease Education Program and the [facility] [facility] literature.Reference ranges:60 or greater: Wislaf09-32 ( for 3 consecutive months): Chronic kidney disease 15 or less: Kidney failureConnally Memorial Medical CenterGlucose Ehdsh8345-89-55 12:24:00* Test Item Value Reference Range Interpretation Comments Glucose Level (test code = TDL4208) 95 74-118 [facility] CenterCalcium Avwmu5703-84-87 12:24:00* Test Item Value Reference Range Interpretation Comments Calcium Level (test code = 51778-2) 10.5 8.4-10.2 H [facility] CenterTotal Ijbccatzr3959-86-27 12:24:00* Test Item Value Reference Range Interpretation Comments Total Bilirubin (test code = 1975-2) 0.8 0.2-1.2 [facility] CenterAspartate Amino Transf (AST/SGOT) 2018-02-15 12:24:00* Test Item Value Reference Range Interpretation Comments Aspartate Amino Transf (AST/SGOT) (test code = Aspartate Amino Transf (AST/SGOT)) 16 5-34 [facility] CenterAlanine Aminotransferase (ALT/SGPT) 2018-02-15 12:24:00* Test Item Value Reference Range Interpretation Comments Alanine Aminotransferase (ALT/SGPT) (test code = 1742-6) 9 0-55 [facility] CenterTotal Jpdzifq1403-31-93 12:24:00* Test Item Value Reference Range Interpretation Comments Total Protein (test code = 2885-2) 6.6 6.5-8.1 [facility] CenterAlbumin2018-05-17 12:24:00* Test Item Value Reference Range Interpretation Comments Albumin (test code = 1751-7) 3.1 3.5-5.0 L [facility] CenterGlobulin2018-05-17 12:24:00* Test Item Value Reference Range Interpretation Comments Globulin (test code = 55622-5) 3.5 2.3-3.5 [facility] CenterAlbumin/Globulin Oafio2172-11-00 12:24:00 * Test Item Value Reference Range Interpretation Comments Albumin/Globulin Ratio (test code = 1759-0) 0.9 0.8-2.0 [facility] CenterAlkaline Xdgppnorary6753-33-28 12:24:00* Test Item Value Reference Range Interpretation Comments Alkaline Phosphatase (test code = 6768-6) 72 40-150 [facility] Bwvny9993-85-29 12:24:00* Test Item Value Reference Range Interpretation Comments Sodium Level (test code = 2951-2) 142 136-145 [facility] CenterPotassium Dkpuq4501-39-54 12:24:00* Test Item Value Reference Range Interpretation Comments Potassium Level (test code = 2823-3) 3.6 3.5-5.1 [facility] CenterChloride Ehtzb6469-74-48 12:24:00* Test Item Value Reference Range Interpretation Comments Chloride Level (test code = 2075-0) 104 98-107 [facility] CenterCarbon Dioxide Pxkaw2130-39-86 12:24:00* Test Item Value Reference Range Interpretation Comments Carbon Dioxide Level (test code = 2028-9) 27 22-29 [facility] CenterAnion Nxs9884-14-40 12:24:00* Test Item Value Reference Range Interpretation Comments Anion Gap (test code = 88309-7) 14.6 8-16 [facility] CenterBlood Urea Gsphyjio3287-28-75 12:24:00* Test Item Value Reference Range Interpretation Comments Blood Urea Nitrogen (test code = 3094-0) 13 7-26 [facility] CenterCreatinine2018-05-17 12:24:00* Test Item Value Reference Range Interpretation Comments Creatinine (test code = 2160-0) 1.31 0.57-1.11 H [facility] CenterBUN/Creatinine Heysy2042-79-93 12:24:00* Test Item Value Reference Range Interpretation Comments BUN/Creatinine Ratio (test code = 3097-3) 10 6-25 [facility] CenterEstimat Glomerular Filtration Rate 2018-02-15 12:24:00* Test Item Value Reference Range Interpretation Comments Estimat Glomerular Filtration Rate (test code = 67798-7) 39 >60 L Ranges were taken from the National Kidney Disease Education Program and the [facility] literature.Reference ranges:60 or greater: Fzlbdi98-03 ( for 3 consecutive months): Chronic kidney disease 15 or less: Kidney failureConnally Memorial Medical CenterGlucose Mwthc4939-26-49 12:24:00* Test Item Value Reference Range Interpretation Comments Glucose Level (test code = IIJ8623) 95 74-118 [facility] CenterCalcium Jlusx6299-18-37 12:24:00* Test Item Value Reference Range Interpretation Comments Calcium Level (test code = 88909-2) 10.5 8.4-10.2 H [facility] CenterTotal Vmaqmikqq0319-85-86 12:24:00* Test Item Value Reference Range Interpretation Comments Total Bilirubin (test code = 1975-2) 0.8 0.2-1.2 [facility] CenterAspartate Amino Transf (AST/SGOT) 2018-02-15 12:24:00* Test Item Value Reference Range Interpretation Comments Aspartate Amino Transf (AST/SGOT) (test code = Aspartate Amino Transf (AST/SGOT)) 16 5-34 [facility] CenterAlanine Aminotransferase (ALT/SGPT) 2018-02-15 12:24:00* Test Item Value Reference Range Interpretation Comments Alanine Aminotransferase (ALT/SGPT) (test code = 1742-6) 9 0-55 [facility] CenterTotal Xochitl7368-43-65 12:24:00* Test Item Value Reference Range Interpretation Comments Total Protein (test code = 2885-2) 6.6 6.5-8.1 [facility] CenterAlbumin2018-05-17 12:24:00* Test Item Value Reference Range Interpretation Comments Albumin (test code = 1751-7) 3.1 3.5-5.0 L [facility] CenterGlobulin2018-05-17 12:24:00* Test Item Value Reference Range Interpretation Comments Globulin (test code = 96485-0) 3.5 2.3-3.5 [facility] CenterAlbumin/Globulin Odpja3280-18-44 12:24:00 * Test Item Value Reference Range Interpretation Comments Albumin/Globulin Ratio (test code = 1759-0) 0.9 0.8-2.0 [facility] CenterAlkaline Ckkmjuiuftn7343-65-81 12:24:00* Test Item Value Reference Range Interpretation Comments Alkaline Phosphatase (test code = 6768-6) 72 40-150 [facility]odium Bgmyc4433-58-09 12:24:00* Test Item Value Reference Range Interpretation Comments Sodium Level (test code = 2951-2) 142 136-145 [facility] CenterPotassium Vmkdm3328-08-96 12:24:00* Test Item Value Reference Range Interpretation Comments Potassium Level (test code = 2823-3) 3.6 3.5-5.1 [facility] CenterChloride Iqatr9490-27-63 12:24:00* Test Item Value Reference Range Interpretation Comments Chloride Level (test code = 2075-0) 104 98-107 [facility] CenterCarbon Dioxide Ukopo8924-76-11 12:24:00* Test Item Value Reference Range Interpretation Comments Carbon Dioxide Level (test code = 2028-9) 27 22-29 [facility] CenterAnion Jws9544-54-67 12:24:00* Test Item Value Reference Range Interpretation Comments Anion Gap (test code = 08727-5) 14.6 8-16 [facility] CenterBlood Urea Bpxrkgwe6358-72-46 12:24:00* Test Item Value Reference Range Interpretation Comments Blood Urea Nitrogen (test code = 3094-0) 13 7-26 [facility] CenterCreatinine2018-05-17 12:24:00* Test Item Value Reference Range Interpretation Comments Creatinine (test code = 2160-0) 1.31 0.57-1.11 H [facility] CenterBUN/Creatinine Zbzff5172-75-95 12:24:00* Test Item Value Reference Range Interpretation Comments BUN/Creatinine Ratio (test code = 3097-3) 10 6-25 [facility] CenterEstimat Glomerular Filtration Rate 2018-02-15 12:24:00* Test Item Value Reference Range Interpretation Comments Estimat Glomerular Filtration Rate (test code = 020639723) 39 >60 L Ranges were taken from the National Kidney Disease Education Program and the [facility] literature.Reference ranges:60 or greater: Bmoxib65-53 ( for 3 consecutive months): Chronic kidney disease 15 or less: Kidney failureConnally Memorial Medical CenterGlucose Bfepb3478-94-82 12:24:00* Test Item Value Reference Range Interpretation Comments Glucose Level (test code = TBC2338) 95 74-118 [facility] CenterCalcium Egxle8969-64-84 12:24:00* Test Item Value Reference Range Interpretation Comments Calcium Level (test code = 50120-1) 10.5 8.4-10.2 H [facility] CenterTotal Jllorivpi8676-10-76 12:24:00* Test Item Value Reference Range Interpretation Comments Total Bilirubin (test code = 1975-2) 0.8 0.2-1.2 [facility] CenterAspartate Amino Transf (AST/SGOT) 2018-02-15 12:24:00* Test Item Value Reference Range Interpretation Comments Aspartate Amino Transf (AST/SGOT) (test code = Aspartate Amino Transf (AST/SGOT)) 16 5-34 [facility] CenterAlanine Aminotransferase (ALT/SGPT) 2018-02-15 12:24:00* Test Item Value Reference Range Interpretation Comments Alanine Aminotransferase (ALT/SGPT) (test code = 1742-6) 9 0-55 [facility] CenterTotal Dfajrty2013-77-93 12:24:00* Test Item Value Reference Range Interpretation Comments Total Protein (test code = 2885-2) 6.6 6.5-8.1 [facility] CenterAlbumin2018-05-17 12:24:00* Test Item Value Reference Range Interpretation Comments Albumin (test code = 1751-7) 3.1 3.5-5.0 L [facility] CenterGlobulin2018-05-17 12:24:00* Test Item Value Reference Range Interpretation Comments Globulin (test code = 06806-8) 3.5 2.3-3.5 [facility] CenterAlbumin/Globulin Xgpvc9418-01-75 12:24:00 * Test Item Value Reference Range Interpretation Comments Albumin/Globulin Ratio (test code = 1759-0) 0.9 0.8-2.0 [facility] CenterAlkaline Aswpgpfjeej4410-32-97 12:24:00* Test Item Value Reference Range Interpretation Comments Alkaline Phosphatase (test code = 6768-6) 72 40-150 [facility] CenterProthrombin Qlgi1317-06-01 12:16:00* Test Item Value Reference Range Interpretation Comments Prothrombin Time (test code = 5902-2) 12.4 11.9-14.5 [facility] CenterProthromb Time International Ratio 2018-02-15 12:16:00* Test Item Value Reference Range Interpretation Comments Prothromb Time International Ratio (test code = 6301-6) 1.00 Oral Anticoagulant Therapy INR Values:1. Low Intensity Therapy 1.5 - 2.02 . Moderate Intensity Therapy 2.0 - 3.03. High Intensity Therapy(1) 2.5 - 3. 54. High Intensity Therapy(2) 3.0 - 4.05. Panic Value INR > 5.0 [facility] CenterActivated Partial Thromboplast Time 2018-02-15 12:16:00* Test Item Value Reference Range Interpretation Comments Activated Partial Thromboplast Time (test code = 34036-3) 24.2 23.8-35.5 [facility] CenterProthrombin Toqr1441-19-80 12:16:00* Test Item Value Reference Range Interpretation Comments Prothrombin Time (test code = 5902-2) 12.4 11.9-14.5 [facility] CenterProthromb Time International Ratio 2018-02-15 12:16:00* Test Item Value Reference Range Interpretation Comments Prothromb Time International Ratio (test code = 6301-6) 1.00 Oral Anticoagulant Therapy INR Values:1. Low Intensity Therapy 1.5 - 2.02 . Moderate Intensity Therapy 2.0 - 3.03. High Intensity Therapy(1) 2.5 - 3. 54. High Intensity Therapy(2) 3.0 - 4.05. Panic Value INR > 5.0 [facility] CenterActivated Partial Thromboplast Time 2018-02-15 12:16:00* Test Item Value Reference Range Interpretation Comments Activated Partial Thromboplast Time (test code = 82018-3) 24.2 23.8-35.5 [facility] CenterProthrombin Ocby6188-37-67 12:16:00* Test Item Value Reference Range Interpretation Comments Prothrombin Time (test code = 5902-2) 12.4 11.9-14.5 [facility] CenterProthromb Time International Ratio 2018-02-15 12:16:00* Test Item Value Reference Range Interpretation Comments Prothromb Time International Ratio (test code = 6301-6) 1.00 Oral Anticoagulant Therapy INR Values:1. Low Intensity Therapy 1.5 - 2.02 . Moderate Intensity Therapy 2.0 - 3.03. High Intensity Therapy(1) 2.5 - 3. 54. High Intensity Therapy(2) 3.0 - 4.05. Panic Value INR > 5.0 [facility] CenterActivated Partial Thromboplast Time 2018-02-15 12:16:00* Test Item Value Reference Range Interpretation Comments Activated Partial Thromboplast Time (test code = 34564-9) 24.2 23.8-35.5 [facility] CenterProthrombin Wmzf5136-24-36 12:16:00* Test Item Value Reference Range Interpretation Comments Prothrombin Time (test code = 5902-2) 12.4 11.9-14.5 [facility] CenterProthromb Time International Ratio 2018-02-15 12:16:00* Test Item Value Reference Range Interpretation Comments Prothromb Time International Ratio (test code = 6301-6) 1.00 Oral Anticoagulant Therapy INR Values:1. Low Intensity Therapy 1.5 - 2.02 . Moderate Intensity Therapy 2.0 - 3.03. High Intensity Therapy(1) 2.5 - 3. 54. High Intensity Therapy(2) 3.0 - 4.05. Panic Value INR > 5.0 [facility] CenterActivated Partial Thromboplast Time 2018-02-15 12:16:00* Test Item Value Reference Range Interpretation Comments Activated Partial Thromboplast Time (test code = 81609-0) 24.2 23.8-35.5 [facility] CenterWhite Blood Qgrni7807-41-29 12:08:00* Test Item Value Reference Range Interpretation Comments White Blood Count (test code = 6690-2) 9.14 4.8-10.8 [facility] CenterRed Blood Hodei7139-84-89 12:08:00* Test Item Value Reference Range Interpretation Comments Red Blood Count (test code = 789-8) 3.97 3.6-5.1 [facility] CenterHemoglobin2018-05-17 12:08:00* Test Item Value Reference Range Interpretation Comments Hemoglobin (test code = 33952-5) 12.3 12.0-16.0 [facility] CenterHematocrit2018-05-17 12:08:00* Test Item Value Reference Range Interpretation Comments Hematocrit (test code = 4544-3) 37.3 34.2-44.1 [facility] CenterMean Corpuscular Wtpevp9156-37-82 12:08:00* Test Item Value Reference Range Interpretation Comments Mean Corpuscular Volume (test code = 787-2) 94.0 81-99 [facility] CenterMean Corpuscular Pdamphswjz0177-31-47 12:08:00* Test Item Value Reference Range Interpretation Comments Mean Corpuscular Hemoglobin (test code = 785-6) 31.0 28-32 [facility] Hemoglobin Concent 2018-02-15 12:08:00* Test Item Value Reference Range Interpretation Comments Mean Corpuscular Hemoglobin Concent (test code = 786-4) 33.0 31-35 [facility] CenterRed Cell Distribution Fsbuu7246-42-28 12:08:00* Test Item Value Reference Range Interpretation Comments Red Cell Distribution Width (test code = 79863-9) 13.1 11.7 -14.4 [facility] CenterPlatelet Kpnhr8152-52-93 12:08:00* Test Item Value Reference Range Interpretation Comments Platelet Count (test code = 777-3) 333 140-360 [facility] CenterNeutrophils (%) (Auto)2018-02-15 12:08:00 * Test Item Value Reference Range Interpretation Comments Neutrophils (%) (Auto) (test code = 68401-3) 74.8 38.7-80.0 [facility] CenterLymphocytes (%) (Auto)2018-02-15 12:08:00 * Test Item Value Reference Range Interpretation Comments Lymphocytes (%) (Auto) (test code = 736-9) 15.0 18.0-39.1 L [facility] CenterMonocytes (%) (Auto)2018-02-15 12:08:00* Test Item Value Reference Range Interpretation Comments Monocytes (%) (Auto) (test code = 5905-5) 8.3 4.4-11.3 [facility] CenterEosinophils (%) (Auto)2018-02-15 12:08:00 * Test Item Value Reference Range Interpretation Comments Eosinophils (%) (Auto) (test code = 713-8) 0.7 0.0-6.0 [facility] CenterBasophils (%) (Auto)2018-02-15 12:08:00* Test Item Value Reference Range Interpretation Comments Basophils (%) (Auto) (test code = 706-2) 0.8 0.0-1.0 [facility] CenterIM GRANULOCYTES %2018-02-15 12:08:00* Test Item Value Reference Range Interpretation Comments IM GRANULOCYTES % (test code = IM GRANULOCYTES %) 0.4 0.0- 1.0 [facility] CenterNeutrophils # (Auto)2018-02-15 12:08:00* Test Item Value Reference Range Interpretation Comments Neutrophils # (Auto) (test code = 751-8) 6.8 2.1-6.9 [facility] CenterLymphocytes # (Auto)2018-02-15 12:08:00* Test Item Value Reference Range Interpretation Comments Lymphocytes # (Auto) (test code = 42718-0) 1.4 1.0-3.2 [facility] CenterMonocytes # (Auto)2018-02-15 12:08:00* Test Item Value Reference Range Interpretation Comments Monocytes # (Auto) (test code = 742-7) 0.8 0.2-0.8 [facility] CenterEosinophils # (Auto)2018-02-15 12:08:00* Test Item Value Reference Range Interpretation Comments Eosinophils # (Auto) (test code = 711-2) 0.1 0.0-0.4 [facility] CenterBasophils # (Auto)2018-02-15 12:08:00* Test Item Value Reference Range Interpretation Comments Basophils # (Auto) (test code = 704-7) 0.1 0.0-0.1 [facility] CenterAbsolute Immature Granulocyte (auto 2018-02-15 12:08:00* Test Item Value Reference Range Interpretation Comments Absolute Immature Granulocyte (auto (idania t code = Absolute Immature Granulocyte (auto) 0.04 0-0.1 [facility] CenterWhite Blood Hlsxd6164-59-34 12:08:00* Test Item Value Reference Range Interpretation Comments White Blood Count (test code = 6690-2) 9.14 4.8-10.8 [facility] CenterRed Blood Giacb2726-22-74 12:08:00* Test Item Value Reference Range Interpretation Comments Red Blood Count (test code = 789-8) 3.97 3.6-5.1 [facility] CenterHemoglobin2018-05-17 12:08:00* Test Item Value Reference Range Interpretation Comments Hemoglobin (test code = 47732-8) 12.3 12.0-16.0 [facility] CenterHematocrit2018-05-17 12:08:00* Test Item Value Reference Range Interpretation Comments Hematocrit (test code = 4544-3) 37.3 34.2-44.1 [facility] CenterMean Corpuscular Zotaqf9961-55-05 12:08:00* Test Item Value Reference Range Interpretation Comments Mean Corpuscular Volume (test code = 787-2) 94.0 81-99 [facility] CenterMean Corpuscular Ivfyvswnsu5658-03-34 12:08:00* Test Item Value Reference Range Interpretation Comments Mean Corpuscular Hemoglobin (test code = 785-6) 31.0 28-32 [facility] CenterMean Corpuscular Hemoglobin Concent 2018-02-15 12:08:00* Test Item Value Reference Range Interpretation Comments Mean Corpuscular Hemoglobin Concent (test code = 786-4) 33.0 31-35 [facility] CenterRed Cell Distribution Tigpe1932-38-96 12:08:00* Test Item Value Reference Range Interpretation Comments Red Cell Distribution Width (test code = 64740-8) 13.1 11.7 -14.4 [facility] CenterPlatelet Bttrf5682-32-83 12:08:00* Test Item Value Reference Range Interpretation Comments Platelet Count (test code = 777-3) 333 140-360 [facility] CenterNeutrophils (%) (Auto)2018-02-15 12:08:00 * Test Item Value Reference Range Interpretation Comments Neutrophils (%) (Auto) (test code = 23158-0) 74.8 38.7-80.0 [facility] CenterLymphocytes (%) (Auto)2018-02-15 12:08:00 * Test Item Value Reference Range Interpretation Comments Lymphocytes (%) (Auto) (test code = 736-9) 15.0 18.0-39.1 L [facility] CenterMonocytes (%) (Auto)2018-02-15 12:08:00* Test Item Value Reference Range Interpretation Comments Monocytes (%) (Auto) (test code = 5905-5) 8.3 4.4-11.3 [facility] CenterEosinophils (%) (Auto)2018-02-15 12:08:00 * Test Item Value Reference Range Interpretation Comments Eosinophils (%) (Auto) (test code = 713-8) 0.7 0.0-6.0 [facility] CenterBasophils (%) (Auto)2018-02-15 12:08:00* Test Item Value Reference Range Interpretation Comments Basophils (%) (Auto) (test code = 706-2) 0.8 0.0-1.0 [facility] CenterIM GRANULOCYTES %2018-02-15 12:08:00* Test Item Value Reference Range Interpretation Comments IM GRANULOCYTES % (test code = IM GRANULOCYTES %) 0.4 0.0- 1.0 [facility] CenterNeutrophils # (Auto)2018-02-15 12:08:00* Test Item Value Reference Range Interpretation Comments Neutrophils # (Auto) (test code = 751-8) 6.8 2.1-6.9 [facility] CenterLymphocytes # (Auto)2018-02-15 12:08:00* Test Item Value Reference Range Interpretation Comments Lymphocytes # (Auto) (test code = 94595-6) 1.4 1.0-3.2 [facility] CenterMonocytes # (Auto)2018-02-15 12:08:00* Test Item Value Reference Range Interpretation Comments Monocytes # (Auto) (test code = 742-7) 0.8 0.2-0.8 [facility] CenterEosinophils # (Auto)2018-02-15 12:08:00* Test Item Value Reference Range Interpretation Comments Eosinophils # (Auto) (test code = 711-2) 0.1 0.0-0.4 [facility] CenterBasophils # (Auto)2018-02-15 12:08:00* Test Item Value Reference Range Interpretation Comments Basophils # (Auto) (test code = 704-7) 0.1 0.0-0.1 [facility] CenterAbsolute Immature Granulocyte (auto 2018-02-15 12:08:00* Test Item Value Reference Range Interpretation Comments Absolute Immature Granulocyte (auto (idania t code = Absolute Immature Granulocyte (auto) 0.04 0-0.1 [facility] CenterWhite Blood Angko9893-94-55 12:08:00* Test Item Value Reference Range Interpretation Comments White Blood Count (test code = 6690-2) 9.14 4.8-10.8 [facility] CenterRed Blood Vdocx2736-09-23 12:08:00* Test Item Value Reference Range Interpretation Comments Red Blood Count (test code = 789-8) 3.97 3.6-5.1 [facility] CenterHemoglobin2018-05-17 12:08:00* Test Item Value Reference Range Interpretation Comments Hemoglobin (test code = 29760-9) 12.3 12.0-16.0 [facility] CenterHematocrit2018-05-17 12:08:00* Test Item Value Reference Range Interpretation Comments Hematocrit (test code = 4544-3) 37.3 34.2-44.1 [facility] CenterMean Corpuscular Andymx1464-56-73 12:08:00* Test Item Value Reference Range Interpretation Comments Mean Corpuscular Volume (test code = 787-2) 94.0 81-99 [facility] CenterMean Corpuscular Pbrpyfwfzr4615-01-79 12:08:00* Test Item Value Reference Range Interpretation Comments Mean Corpuscular Hemoglobin (test code = 785-6) 31.0 28-32 [facility] CenterMean Corpuscular Hemoglobin Concent 2018-02-15 12:08:00* Test Item Value Reference Range Interpretation Comments Mean Corpuscular Hemoglobin Concent (test code = 786-4) 33.0 31-35 [facility] CenterRed Cell Distribution Woavk7623-20-74 12:08:00* Test Item Value Reference Range Interpretation Comments Red Cell Distribution Width (test code = 83334-8) 13.1 11.7 -14.4 [facility] CenterPlatelet Gjozp2991-97-03 12:08:00* Test Item Value Reference Range Interpretation Comments Platelet Count (test code = 777-3) 333 140-360 [facility] CenterNeutrophils (%) (Auto)2018-02-15 12:08:00 * Test Item Value Reference Range Interpretation Comments Neutrophils (%) (Auto) (test code = 91937-8) 74.8 38.7-80.0 [facility] CenterLymphocytes (%) (Auto)2018-02-15 12:08:00 * Test Item Value Reference Range Interpretation Comments Lymphocytes (%) (Auto) (test code = 736-9) 15.0 18.0-39.1 L [facility] CenterMonocytes (%) (Auto)2018-02-15 12:08:00* Test Item Value Reference Range Interpretation Comments Monocytes (%) (Auto) (test code = 5905-5) 8.3 4.4-11.3 [facility] CenterEosinophils (%) (Auto)2018-02-15 12:08:00 * Test Item Value Reference Range Interpretation Comments Eosinophils (%) (Auto) (test code = 713-8) 0.7 0.0-6.0 [facility] CenterBasophils (%) (Auto)2018-02-15 12:08:00* Test Item Value Reference Range Interpretation Comments Basophils (%) (Auto) (test code = 706-2) 0.8 0.0-1.0 [facility] CenterIM GRANULOCYTES %2018-02-15 12:08:00* Test Item Value Reference Range Interpretation Comments IM GRANULOCYTES % (test code = IM GRANULOCYTES %) 0.4 0.0- 1.0 [facility] CenterNeutrophils # (Auto)2018-02-15 12:08:00* Test Item Value Reference Range Interpretation Comments Neutrophils # (Auto) (test code = 751-8) 6.8 2.1-6.9 [facility] CenterLymphocytes # (Auto)2018-02-15 12:08:00* Test Item Value Reference Range Interpretation Comments Lymphocytes # (Auto) (test code = 95860-1) 1.4 1.0-3.2 [facility] CenterMonocytes # (Auto)2018-02-15 12:08:00* Test Item Value Reference Range Interpretation Comments Monocytes # (Auto) (test code = 742-7) 0.8 0.2-0.8 [facility] CenterEosinophils # (Auto)2018-02-15 12:08:00* Test Item Value Reference Range Interpretation Comments Eosinophils # (Auto) (test code = 711-2) 0.1 0.0-0.4 [facility] CenterBasophils # (Auto)2018-02-15 12:08:00* Test Item Value Reference Range Interpretation Comments Basophils # (Auto) (test code = 704-7) 0.1 0.0-0.1 [facility] CenterAbsolute Immature Granulocyte (auto 2018-02-15 12:08:00* Test Item Value Reference Range Interpretation Comments Absolute Immature Granulocyte (auto (idania t code = Absolute Immature Granulocyte (auto) 0.04 0-0.1 [facility] CenterWhite Blood Gbjpj5857-75-57 12:08:00* Test Item Value Reference Range Interpretation Comments White Blood Count (test code = 6690-2) 9.14 4.8-10.8 [facility] CenterRed Blood Ihzxg0620-57-13 12:08:00* Test Item Value Reference Range Interpretation Comments Red Blood Count (test code = 789-8) 3.97 3.6-5.1 [facility] CenterHemoglobin2018-05-17 12:08:00* Test Item Value Reference Range Interpretation Comments Hemoglobin (test code = 53063-3) 12.3 12.0-16.0 [facility] CenterHematocrit2018-05-17 12:08:00* Test Item Value Reference Range Interpretation Comments Hematocrit (test code = 4544-3) 37.3 34.2-44.1 [facility] CenterMean Corpuscular Eekfaj2826-31-27 12:08:00* Test Item Value Reference Range Interpretation Comments Mean Corpuscular Volume (test code = 787-2) 94.0 81-99 [facility] CenterMean Corpuscular Dcfpiqqciv9770-16-88 12:08:00* Test Item Value Reference Range Interpretation Comments Mean Corpuscular Hemoglobin (test code = 785-6) 31.0 28-32 [facility] CenterMean Corpuscular Hemoglobin Concent 2018-02-15 12:08:00* Test Item Value Reference Range Interpretation Comments Mean Corpuscular Hemoglobin Concent (test code = 786-4) 33.0 31-35 [facility] CenterRed Cell Distribution Gjbzo4087-77-89 12:08:00* Test Item Value Reference Range Interpretation Comments Red Cell Distribution Width (test code = 76967-2) 13.1 11.7 -14.4 [facility] CenterPlatelet Kojhk7181-43-49 12:08:00* Test Item Value Reference Range Interpretation Comments Platelet Count (test code = 777-3) 333 140-360 [facility] CenterNeutrophils (%) (Auto)2018-02-15 12:08:00 * Test Item Value Reference Range Interpretation Comments Neutrophils (%) (Auto) (test code = 96391-3) 74.8 38.7-80.0 [facility] CenterLymphocytes (%) (Auto)2018-02-15 12:08:00 * Test Item Value Reference Range Interpretation Comments Lymphocytes (%) (Auto) (test code = 736-9) 15.0 18.0-39.1 L [facility] CenterMonocytes (%) (Auto)2018-02-15 12:08:00* Test Item Value Reference Range Interpretation Comments Monocytes (%) (Auto) (test code = 5905-5) 8.3 4.4-11.3 [facility] CenterEosinophils (%) (Auto)2018-02-15 12:08:00 * Test Item Value Reference Range Interpretation Comments Eosinophils (%) (Auto) (test code = 713-8) 0.7 0.0-6.0 [facility] CenterBasophils (%) (Auto)2018-02-15 12:08:00* Test Item Value Reference Range Interpretation Comments Basophils (%) (Auto) (test code = 706-2) 0.8 0.0-1.0 [facility] CenterIM GRANULOCYTES %2018-02-15 12:08:00* Test Item Value Reference Range Interpretation Comments IM GRANULOCYTES % (test code = IM GRANULOCYTES %) 0.4 0.0- 1.0 [facility] CenterNeutrophils # (Auto)2018-02-15 12:08:00* Test Item Value Reference Range Interpretation Comments Neutrophils # (Auto) (test code = 751-8) 6.8 2.1-6.9 [facility] CenterLymphocytes # (Auto)2018-02-15 12:08:00* Test Item Value Reference Range Interpretation Comments Lymphocytes # (Auto) (test code = 56247-1) 1.4 1.0-3.2 [facility] CenterMonocytes # (Auto)2018-02-15 12:08:00* Test Item Value Reference Range Interpretation Comments Monocytes # (Auto) (test code = 742-7) 0.8 0.2-0.8 [facility] CenterEosinophils # (Auto)2018-02-15 12:08:00* Test Item Value Reference Range Interpretation Comments Eosinophils # (Auto) (test code = 711-2) 0.1 0.0-0.4 [facility] CenterBasophils # (Auto)2018-02-15 12:08:00* Test Item Value Reference Range Interpretation Comments Basophils # (Auto) (test code = 704-7) 0.1 0.0-0.1 [facility] CenterAbsolute Immature Granulocyte (auto 2018-02-15 12:08:00* Test Item Value Reference Range Interpretation Comments Absolute Immature Granulocyte (auto (idania t code = Absolute Immature Granulocyte (auto) 0.04 0-0.1 [facility] CenterActivated Clotting Kfxq2345-38-67 10:15:00* Test Item Value Reference Range Interpretation Comments Activated Clotting Time (test code = [id number]) 119 Line pull <170 sec or baselinePeripheral and Neuroradiology <400 secAngioplasty 220 secConnally Memorial Medical CenterActivated Clotting Yidw5002-09-58 10:15:00* Test Item Value Reference Range Interpretation Comments Activated Clotting Time (test code = ZTY1795) 119 Line pull <170 sec or baselinePeripheral and Neuroradiology <400 secAngioplasty 220 secConnally Memorial Medical CenterActivated Clotting Eqtd7704-93-99 10:15:00* Test Item Value Reference Range Interpretation Comments Activated Clotting Time (test code = ZZH6423) 119 Line pull <170 sec or baselinePeripheral and Neuroradiology <400 secAngioplasty 220 secConnally Memorial Medical CenterActivated Clotting Qsex7387-01-05 10:15:00* Test Item Value Reference Range Interpretation Comments Activated Clotting Time (test code = DDV4905) 119 Line pull <170 sec or baselinePeripheral and Neuroradiology <400 secAngioplasty 220 secConnally Memorial Medical CenterTriglycerides Cqjxk7208-28-12 14:04:00* Test Item Value Reference Range Interpretation Comments Triglycerides Level (test code = 2571-8) 182 0-149 H [facility] CenterCholesterol Mdhqq9751-25-04 14:04:00* Test Item Value Reference Range Interpretation Comments Cholesterol Level (test code = 2093-3) 159 0-199 Less than 200 mg/dL Low Ofdt406 - 239 mg/dL Borderline Gzub273 m g/dl and greater High Risk [facility] CenterLDL Vtdrrxgqhrp6593-91-06 14:04:00* Test Item Value Reference Range Interpretation Comments LDL Cholesterol (test code = 2089-1) 86 60-130 [facility] CenterHDL Xmafdeuznst2811-35-91 14:04:00* Test Item Value Reference Range Interpretation Comments HDL Cholesterol (test code = 2085-9) 37 40-60 L [facility] CenterCholesterol/HDL Suqvb5855-62-96 14:04:00 * Test Item Value Reference Range Interpretation Comments Cholesterol/HDL Ratio (test code = 9830-1) 4.3 3.0-3.6 H [facility] CenterTriglycerides Orqxh0222-62-04 14:04:00* Test Item Value Reference Range Interpretation Comments Triglycerides Level (test code = 2571-8) 182 0-149 H [facility] CenterCholesterol Wgcse5189-26-45 14:04:00* Test Item Value Reference Range Interpretation Comments Cholesterol Level (test code = 2093-3) 159 0-199 Less than 200 mg/dL Low Hats999 - 239 mg/dL Borderline Zohk698 m g/dl and greater High Risk [facility] CenterLDL Drohtyfbvxp8276-70-00 14:04:00* Test Item Value Reference Range Interpretation Comments LDL Cholesterol (test code = 2089-1) 86 60-130 [facility] Eaknfrifnln7760-21-78 14:04:00* Test Item Value Reference Range Interpretation Comments HDL Cholesterol (test code = 2085-9) 37 40-60 L [facility] CenterCholesterol/HDL Onqmb3191-37-76 14:04:00 * Test Item Value Reference Range Interpretation Comments Cholesterol/HDL Ratio (test code = 9830-1) 4.3 3.0-3.6 H [facility] CenterTriglycerides Loigw7882-41-53 14:04:00* Test Item Value Reference Range Interpretation Comments Triglycerides Level (test code = 2571-8) 182 0-149 H [facility] CenterCholesterol Mmtxo3158-93-80 14:04:00* Test Item Value Reference Range Interpretation Comments Cholesterol Level (test code = 2093-3) 159 0-199 Less than 200 mg/dL Low Smlg073 - 239 mg/dL Borderline Yfkn236 m g/dl and greater High Risk [facility] CenterLDL Ahpczbxbylp4264-00-23 14:04:00* Test Item Value Reference Range Interpretation Comments LDL Cholesterol (test code = 2089-1) 86 60-130 [facility] Gojvynmbsvm9986-35-60 14:04:00* Test Item Value Reference Range Interpretation Comments HDL Cholesterol (test code = 2085-9) 37 40-60 L [facility] CenterCholesterol/HDL Ukgll1912-56-05 14:04:00 * Test Item Value Reference Range Interpretation Comments Cholesterol/HDL Ratio (test code = 9830-1) 4.3 3.0-3.6 H [facility] CenterTriglycerides Boxfr4560-18-23 14:04:00* Test Item Value Reference Range Interpretation Comments Triglycerides Level (test code = 2571-8) 182 0-149 H [facility] CenterCholesterol Hzxvm0036-71-50 14:04:00* Test Item Value Reference Range Interpretation Comments Cholesterol Level (test code = 2093-3) 159 0-199 Less than 200 mg/dL Low Dbbx492 - 239 mg/dL Borderline Ndiu534 m g/dl and greater High Risk [facility] CenterLDL Hxkzjabueyn5615-95-04 14:04:00* Test Item Value Reference Range Interpretation Comments LDL Cholesterol (test code = 2089-1) 86 60-130 [facility] CenterHDL Vlyinnqpwdi2766-10-48 14:04:00* Test Item Value Reference Range Interpretation Comments HDL Cholesterol (test code = 2085-9) 37 40-60 L [facility] CenterCholesterol/HDL Nijie7272-50-77 14:04:00 * Test Item Value Reference Range Interpretation Comments Cholesterol/HDL Ratio (test code = 9830-1) 4.3 3.0-3.6 H [facility] CenterTriglycerides Mbtrt0395-26-51 15:12:00* Test Item Value Reference Range Interpretation Comments Triglycerides Level (test code = 2571-8) 143 0-149 [facility] CenterCholesterol Ywouz1359-43-61 15:12:00* Test Item Value Reference Range Interpretation Comments Cholesterol Level (test code = 2093-3) 130 0-199 Less than 200 mg/dL Low Eeeg128 - 239 mg/dL Borderline Zedi264 m g/dl and greater High Risk [facility] CenterLDL Zqfhzmmvmbl8015-06-01 15:12:00* Test Item Value Reference Range Interpretation Comments LDL Cholesterol (test code = 2089-1) 69 60-130 [facility] Qqoyfftfaxm6782-13-33 15:12:00* Test Item Value Reference Range Interpretation Comments HDL Cholesterol (test code = 2085-9) 32 40-60 L [facility] CenterCholesterol/HDL Gnvma2625-77-90 15:12:00 * Test Item Value Reference Range Interpretation Comments Cholesterol/HDL Ratio (test code = 9830-1) 4.1 3.0-3.6 [facility] Gbkvz9817-76-60 07:25:00* Test Item Value Reference Range Interpretation Comments Magnesium Level (test code = 28370-1) 1.3 1.3-2.1 [facility] Worthgn[facility] Yqfcv9992-09-65 07:25:00* Test Item Value Reference Range Interpretation Comments Magnesium Level (test code = 25531-7) 1.3 1.3-2.1 [facility]gn[facility] Lmgtk6485-57-63 07:25:00* Test Item Value Reference Range Interpretation Comments Magnesium Level (test code = 64911-3) 1.3 1.3-2.1 [facility]gn[facility] Mdufm0859-33-09 07:25:00* Test Item Value Reference Range Interpretation Comments Magnesium Level (test code = 83508-2) 1.3 1.3-2.1 [facility] Dgvfy3966-59-65 07:25:00* Test Item Value Reference Range Interpretation Comments Magnesium Level (test code = 26691-5) 1.3 1.3-2.1 [facility] Abolq9820-33-52 07:16:00* Test Item Value Reference Range Interpretation Comments Sodium Level (test code = 2951-2) 141 136-145 [facility] CenterPotassium Lvunz4673-87-43 07:16:00* Test Item Value Reference Range Interpretation Comments Potassium Level (test code = 2823-3) 4.3 3.5-5.1 [facility] CenterChloride Hnkcu2378-33-57 07:16:00* Test Item Value Reference Range Interpretation Comments Chloride Level (test code = 2075-0) 105 98-107 [facility] CenterCarbon Dioxide Efrwx7253-77-01 07:16:00* Test Item Value Reference Range Interpretation Comments Carbon Dioxide Level (test code = 2028-9) 27 22-29 [facility] CenterAnion Trw2741-03-71 07:16:00* Test Item Value Reference Range Interpretation Comments Anion Gap (test code = 52634-0) 13.3 8-16 [facility] CenterBlood Urea Oszidcum6436-35-41 07:16:00* Test Item Value Reference Range Interpretation Comments Blood Urea Nitrogen (test code = 3094-0) 31 7-26 H [facility] CenterCreatinine2018-05-08 07:16:00* Test Item Value Reference Range Interpretation Comments Creatinine (test code = 2160-0) 1.53 0.57-1.11 H [facility] CenterBUN/Creatinine Kwvzi6952-77-62 07:16:00* Test Item Value Reference Range Interpretation Comments BUN/Creatinine Ratio (test code = 3097-3) 20 6-25 [facility] CenterEstimat Glomerular Filtration Rate 2018-02-06 07:16:00* Test Item Value Reference Range Interpretation Comments Estimat Glomerular Filtration Rate (test code = 99212-2) 33 >60 L Ranges were taken from the National Kidney Disease Education Program and the [facility] literature.Reference ranges:60 or greater: Avgmgr16-38 ( for 3 consecutive months): Chronic kidney disease 15 or less: Kidney failureConnally Memorial Medical CenterGlucose Oowyc7531-22-79 07:16:00* Test Item Value Reference Range Interpretation Comments Glucose Level (test code = YOK4330) 88 74-118 [facility] CenterCalcium Ftbzo7123-32-20 07:16:00* Test Item Value Reference Range Interpretation Comments Calcium Level (test code = 27141-3) 9.9 8.4-10.2 [facility] CenterTotal Puwwsnoog5760-48-52 07:16:00* Test Item Value Reference Range Interpretation Comments Total Bilirubin (test code = 1975-2) 0.5 0.2-1.2 [facility] CenterAspartate Amino Transf (AST/SGOT) 2018-02-06 07:16:00* Test Item Value Reference Range Interpretation Comments Aspartate Amino Transf (AST/SGOT) (test code = Aspartate Amino Transf (AST/SGOT)) 14 5-34 [facility] CenterAlanine Aminotransferase (ALT/SGPT) 2018-02-06 07:16:00* Test Item Value Reference Range Interpretation Comments Alanine Aminotransferase (ALT/SGPT) (test code = 1742-6) 8 0-55 [facility] CenterTotal Sbcbmbf4779-57-48 07:16:00* Test Item Value Reference Range Interpretation Comments Total Protein (test code = 2885-2) 5.6 6.5-8.1 L [facility] CenterAlbumin2018-05-08 07:16:00* Test Item Value Reference Range Interpretation Comments Albumin (test code = 1751-7) 2.6 3.5-5.0 L [facility] CenterGlobulin2018-05-08 07:16:00* Test Item Value Reference Range Interpretation Comments Globulin (test code = 45871-1) 3.0 2.3-3.5 [facility] CenterAlbumin/Globulin Juykz8452-14-32 07:16:00 * Test Item Value Reference Range Interpretation Comments Albumin/Globulin Ratio (test code = 1759-0) 0.9 0.8-2.0 [facility] CenterAlkaline Mtlnydszduk8630-81-82 07:16:00* Test Item Value Reference Range Interpretation Comments Alkaline Phosphatase (test code = 6768-6) 59 40-150 [facility] CenterWhite Blood Iemov3405-26-78 07:03:00* Test Item Value Reference Range Interpretation Comments White Blood Count (test code = 6690-2) 8.55 4.8-10.8 [facility] CenterRed Blood Roslz4199-80-60 07:03:00* Test Item Value Reference Range Interpretation Comments Red Blood Count (test code = 789-8) 3.86 3.6-5.1 [facility] CenterHemoglobin2018-05-08 07:03:00* Test Item Value Reference Range Interpretation Comments Hemoglobin (test code = 15979-2) 11.9 12.0-16.0 L [facility] CenterHematocrit2018-05-08 07:03:00* Test Item Value Reference Range Interpretation Comments Hematocrit (test code = 4544-3) 37.3 34.2-44.1 [facility] CenterMean Corpuscular Mjmaha4893-63-05 07:03:00* Test Item Value Reference Range Interpretation Comments Mean Corpuscular Volume (test code = 787-2) 96.6 81-99 [facility] CenterMean Corpuscular Njemwebybl2118-04-61 07:03:00* Test Item Value Reference Range Interpretation Comments Mean Corpuscular Hemoglobin (test code = 785-6) 30.8 28-32 [facility] CenterMean Corpuscular Hemoglobin Concent 2018-02-06 07:03:00* Test Item Value Reference Range Interpretation Comments Mean Corpuscular Hemoglobin Concent (test code = 786-4) 31.9 31-35 [facility] CenterRed Cell Distribution Obygx8291-27-53 07:03:00* Test Item Value Reference Range Interpretation Comments Red Cell Distribution Width (test code = 08749-1) 13.4 11.7 -14.4 [facility] CenterPlatelet Eqwcn4040-72-45 07:03:00* Test Item Value Reference Range Interpretation Comments Platelet Count (test code = 777-3) 283 140-360 [facility] CenterNeutrophils (%) (Auto)2018-02-06 07:03:00 * Test Item Value Reference Range Interpretation Comments Neutrophils (%) (Auto) (test code = 85467-3) 67.4 38.7-80.0 [facility] CenterLymphocytes (%) (Auto)2018-02-06 07:03:00 * Test Item Value Reference Range Interpretation Comments Lymphocytes (%) (Auto) (test code = 736-9) 20.0 18.0-39.1 [facility] CenterMonocytes (%) (Auto)2018-02-06 07:03:00* Test Item Value Reference Range Interpretation Comments Monocytes (%) (Auto) (test code = 5905-5) 11.1 4.4-11.3 [facility] CenterEosinophils (%) (Auto)2018-02-06 07:03:00 * Test Item Value Reference Range Interpretation Comments Eosinophils (%) (Auto) (test code = 713-8) 0.2 0.0-6.0 [facility] CenterBasophils (%) (Auto)2018-02-06 07:03:00* Test Item Value Reference Range Interpretation Comments Basophils (%) (Auto) (test code = 706-2) 0.7 0.0-1.0 [facility] CenterIM GRANULOCYTES %2018-02-06 07:03:00* Test Item Value Reference Range Interpretation Comments IM GRANULOCYTES % (test code = IM GRANULOCYTES %) 0.6 0.0- 1.0 [facility] CenterNeutrophils # (Auto)2018-02-06 07:03:00* Test Item Value Reference Range Interpretation Comments Neutrophils # (Auto) (test code = 751-8) 5.8 2.1-6.9 [facility] CenterLymphocytes # (Auto)2018-02-06 07:03:00* Test Item Value Reference Range Interpretation Comments Lymphocytes # (Auto) (test code = 98400-0) 1.7 1.0-3.2 [facility] CenterMonocytes # (Auto)2018-02-06 07:03:00* Test Item Value Reference Range Interpretation Comments Monocytes # (Auto) (test code = 742-7) 1.0 0.2-0.8 H [facility] CenterEosinophils # (Auto)2018-02-06 07:03:00* Test Item Value Reference Range Interpretation Comments Eosinophils # (Auto) (test code = 711-2) 0.0 0.0-0.4 [facility] CenterBasophils # (Auto)2018-02-06 07:03:00* Test Item Value Reference Range Interpretation Comments Basophils # (Auto) (test code = 704-7) 0.1 0.0-0.1 [facility] CenterAbsolute Immature Granulocyte (auto 2018-02-06 07:03:00* Test Item Value Reference Range Interpretation Comments Absolute Immature Granulocyte (auto (idania t code = Absolute Immature Granulocyte (auto) 0.05 0-0.1 [facility] CenterUrine [id number] 18:48:00* Test Item Value Reference Range Interpretation Comments Urine WBC (test code = 5821-4) NONE 0-5 [facility] CenterUrine WNF4696-07-69 18:48:00* Test Item Value Reference Range Interpretation Comments Urine RBC (test code = 20331-3) NONE 0-5 [facility] CenterUrine Yzlcijah2158-51-04 18:48:00* Test Item Value Reference Range Interpretation Comments Urine Bacteria (test code = 31917-4) MODERATE NONE H [facility] CenterUrine Epithelial Csfkh5950-88-84 18:48:00 * Test Item Value Reference Range Interpretation Comments Urine Epithelial Cells (test code = 23803-1) FEW NONE [facility] Zjoki8703-57-62 18:48:00* Test Item Value Reference Range Interpretation Comments Urine Mucus (test code = 8247-9) MODERATE RARE H [facility] BNT9178-20-60 18:48:00* Test Item Value Reference Range Interpretation Comments Urine WBC (test code = 5821-4) NONE 0-5 [facility] CenterUrine WEB3001-35-27 18:48:00* Test Item Value Reference Range Interpretation Comments Urine RBC (test code = 17815-8) NONE 0-5 [facility] CenterUrine Mdttrwng4731-80-73 18:48:00* Test Item Value Reference Range Interpretation Comments Urine Bacteria (test code = 40337-8) MODERATE NONE H [facility] CenterUrine Epithelial Akzwq0655-70-90 18:48:00 * Test Item Value Reference Range Interpretation Comments Urine Epithelial Cells (test code = 71710-3) FEW NONE [facility] Cdoft3335-11-33 18:48:00* Test Item Value Reference Range Interpretation Comments Urine Mucus (test code = 8247-9) MODERATE RARE H [facility] NKF6474-38-32 18:48:00* Test Item Value Reference Range Interpretation Comments Urine WBC (test code = 5821-4) NONE 0-5 [facility] PJG0943-42-60 18:48:00* Test Item Value Reference Range Interpretation Comments Urine RBC (test code = 82982-4) NONE 0-5 [facility] Fyzrtdek0589-78-57 18:48:00* Test Item Value Reference Range Interpretation Comments Urine Bacteria (test code = 82165-5) MODERATE NONE H [facility] CenterUrine Epithelial Rbdbb7845-43-73 18:48:00 * Test Item Value Reference Range Interpretation Comments Urine Epithelial Cells (test code = 95513-2) FEW NONE [facility] Pfajz2180-35-73 18:48:00* Test Item Value Reference Range Interpretation Comments Urine Mucus (test code = 8247-9) MODERATE RARE H [facility] QSI6947-96-00 18:48:00* Test Item Value Reference Range Interpretation Comments Urine WBC (test code = 5821-4) NONE 0-5 [facility] TMX0979-71-33 18:48:00* Test Item Value Reference Range Interpretation Comments Urine RBC (test code = 33319-9) NONE 0-5 [facility] Qkgfapve7926-72-01 18:48:00* Test Item Value Reference Range Interpretation Comments Urine Bacteria (test code = 39137-3) MODERATE NONE H [facility] CenterUrine Epithelial Xcxno0831-11-13 18:48:00 * Test Item Value Reference Range Interpretation Comments Urine Epithelial Cells (test code = 44332-2) FEW NONE [facility] Brgtj5819-84-24 18:48:00* Test Item Value Reference Range Interpretation Comments Urine Mucus (test code = 8247-9) MODERATE RARE H [facility] [id number] 18:48:00* Test Item Value Reference Range Interpretation Comments Urine WBC (test code = 5821-4) NONE 0-5 [facility] GQV2418-86-03 18:48:00* Test Item Value Reference Range Interpretation Comments Urine RBC (test code = 05213-1) NONE 0-5 [facility] Kohpwvcl5831-71-89 18:48:00* Test Item Value Reference Range Interpretation Comments Urine Bacteria (test code = 40279-1) MODERATE NONE H [facility] CenterUrine Epithelial Knmrh5309-49-46 18:48:00 * Test Item Value Reference Range Interpretation Comments Urine Epithelial Cells (test code = 73832-4) FEW NONE [facility] CenterUrine Ghxpf6423-45-23 18:48:00* Test Item Value Reference Range Interpretation Comments Urine Mucus (test code = 8247-9) MODERATE RARE H [facility] CenterUrine Mpcrc8160-48-68 18:37:00* Test Item Value Reference Range Interpretation Comments Urine Color (test code = 5778-6) YELLOW YELLOW [facility] CenterUrine Hoyrwmu5299-00-02 18:37:00* Test Item Value Reference Range Interpretation Comments Urine Clarity (test code = 34207-4) SL CLOUDY CLEAR [facility] CenterUrine Specific Bxhmhyy6896-86-07 18:37:00 * Test Item Value Reference Range Interpretation Comments Urine Specific [place] (test code = 5811-5) 1.025 1.010-1.02 5 [facility] CenterUrine [id number] 18:37:00* Test Item Value Reference Range Interpretation Comments Urine pH (test code = 48954-3) 5 5-7 [facility] CenterU[facility] Leukocyte Hvywpdyn6238-21-40 18:37:00* Test Item Value Reference Range Interpretation Comments Urine Leukocyte Esterase (test code = 5799-2) NEGATIVE NEGATIVE [facility] Lvkjbzw3657-69-14 18:37:00* Test Item Value Reference Range Interpretation Comments Urine Nitrite (test code = 40967-5) NEGATIVE NEGATIVE [facility] CenterU[facility] Rfyqokc2623-26-39 18:37:00* Test Item Value Reference Range Interpretation Comments Urine Protein (test code = 5804-0) NEGATIVE NEGATIVE [facility] Center[facility] Glucose (UA)2018-02-05 18:37:00* Test Item Value Reference Range Interpretation Comments Urine Glucose (UA) (test code = 2349-9) NEGATIVE NEGATIVE [facility] Pzhiaam5967-21-78 18:37:00* Test Item Value Reference Range Interpretation Comments Urine Ketones (test code = 25877-8) NEGATIVE NEGATIVE [facility] Ihhvsbtnwjpb9442-53-24 18:37:00* Test Item Value Reference Range Interpretation Comments Urine Urobilinogen (test code = 79392-5) 0.2 0.2-1 [facility] Geruolwwh4065-62-74 18:37:00* Test Item Value Reference Range Interpretation Comments Urine Bilirubin (test code = 1978-6) NEGATIVE NEGATIVE [facility] Center[facility] Bodju1580-85-10 18:37:00* Test Item Value Reference Range Interpretation Comments Urine Blood (test code = 33985-2) NEGATIVE NEGATIVE [facility] Oubku3610-40-18 18:37:00* Test Item Value Reference Range Interpretation Comments Urine Color (test code = 5778-6) YELLOW YELLOW [facility] Center[facility] Oavgxfj5011-87-62 18:37:00* Test Item Value Reference Range Interpretation Comments Urine Clarity (test code = 27677-0) SL CLOUDY CLEAR [facility] CenterU[facility] Specific Qvoocyt5747-93-86 18:37:00 * Test Item Value Reference Range Interpretation Comments Urine Specific [place] (test code = 5811-5) 1.025 1.010-1.02 5 [facility] fJ5102-20-80 18:37:00* Test Item Value Reference Range Interpretation Comments Urine pH (test code = 66867-0) 5 5-7 [facility] Leukocyte Ymocdemp2946-39-83 18:37:00* Test Item Value Reference Range Interpretation Comments Urine Leukocyte Esterase (test code = 5799-2) NEGATIVE NEGATIVE [facility] Ddzzcct8861-18-82 18:37:00* Test Item Value Reference Range Interpretation Comments Urine Nitrite (test code = 38516-9) NEGATIVE NEGATIVE [facility] Zjpujlv1291-73-57 18:37:00* Test Item Value Reference Range Interpretation Comments Urine Protein (test code = 5804-0) NEGATIVE NEGATIVE [facility] Center[facility] Glucose (UA)2018-02-05 18:37:00* Test Item Value Reference Range Interpretation Comments Urine Glucose (UA) (test code = 2349-9) NEGATIVE NEGATIVE [facility] Wnjrxht7453-21-93 18:37:00* Test Item Value Reference Range Interpretation Comments Urine Ketones (test code = 34840-4) NEGATIVE NEGATIVE [facility] Ixytgpvwjwoc4757-61-54 18:37:00* Test Item Value Reference Range Interpretation Comments Urine Urobilinogen (test code = 53588-4) 0.2 0.2-1 [facility] Arycxeevu2316-74-65 18:37:00* Test Item Value Reference Range Interpretation Comments Urine Bilirubin (test code = 1978-6) NEGATIVE NEGATIVE [facility] Viwwr7829-21-88 18:37:00* Test Item Value Reference Range Interpretation Comments Urine Blood (test code = 59638-8) NEGATIVE NEGATIVE [facility] Dqhsc9439-38-33 18:37:00* Test Item Value Reference Range Interpretation Comments Urine Color (test code = 5778-6) YELLOW YELLOW [facility] Ljsrfxq0380-53-61 18:37:00* Test Item Value Reference Range Interpretation Comments Urine Clarity (test code = 46941-0) SL CLOUDY CLEAR [facility] Specific Mgyncwv4869-54-62 18:37:00 * Test Item Value Reference Range Interpretation Comments Urine Specific [place] (test code = 5811-5) 1.025 1.010-1.02 5 [facility] sO3039-89-54 18:37:00* Test Item Value Reference Range Interpretation Comments Urine pH (test code = 35992-4) 5 5-7 [facility] Leukocyte Gkjcuvkn7328-21-36 18:37:00* Test Item Value Reference Range Interpretation Comments Urine Leukocyte Esterase (test code = 5799-2) NEGATIVE NEGATIVE [facility] Gtllwhq8527-15-13 18:37:00* Test Item Value Reference Range Interpretation Comments Urine Nitrite (test code = 41471-6) NEGATIVE NEGATIVE [facility] Herigcd5633-13-27 18:37:00* Test Item Value Reference Range Interpretation Comments Urine Protein (test code = 5804-0) NEGATIVE NEGATIVE [facility] Center[facility] Glucose (UA)2018-02-05 18:37:00* Test Item Value Reference Range Interpretation Comments Urine Glucose (UA) (test code = 2349-9) NEGATIVE NEGATIVE [facility] Dduicgr0432-83-71 18:37:00* Test Item Value Reference Range Interpretation Comments Urine Ketones (test code = 53226-0) NEGATIVE NEGATIVE [facility] Txfxnpninkak9685-95-99 18:37:00* Test Item Value Reference Range Interpretation Comments Urine Urobilinogen (test code = 94917-9) 0.2 0.2-1 [facility] Qbmbguush7685-21-99 18:37:00* Test Item Value Reference Range Interpretation Comments Urine Bilirubin (test code = 1978-6) NEGATIVE NEGATIVE [facility] Tstza8978-19-82 18:37:00* Test Item Value Reference Range Interpretation Comments Urine Blood (test code = 54003-0) NEGATIVE NEGATIVE [facility] Kyczr1698-32-41 18:37:00* Test Item Value Reference Range Interpretation Comments Urine Color (test code = 5778-6) YELLOW YELLOW [facility] Zldlerz6391-50-60 18:37:00* Test Item Value Reference Range Interpretation Comments Urine Clarity (test code = 48184-8) SL CLOUDY CLEAR [facility] Center[facility] Specific Vmuryep8606-78-66 18:37:00 * Test Item Value Reference Range Interpretation Comments Urine Specific [place] (test code = 5811-5) 1.025 1.010-1.02 5 [facility] bU8595-26-51 18:37:00* Test Item Value Reference Range Interpretation Comments Urine pH (test code = 61550-5) 5 5-7 [facility] Leukocyte Flbcctgg7021-88-15 18:37:00* Test Item Value Reference Range Interpretation Comments Urine Leukocyte Esterase (test code = 5799-2) NEGATIVE NEGATIVE [facility] Deygmut1350-44-01 18:37:00* Test Item Value Reference Range Interpretation Comments Urine Nitrite (test code = 91290-7) NEGATIVE NEGATIVE [facility] Xuhuoef7669-60-95 18:37:00* Test Item Value Reference Range Interpretation Comments Urine Protein (test code = 5804-0) NEGATIVE NEGATIVE [facility] Center[facility] Glucose (UA)2018-02-05 18:37:00* Test Item Value Reference Range Interpretation Comments Urine Glucose (UA) (test code = 2349-9) NEGATIVE NEGATIVE [facility] Eqhckfc8624-17-56 18:37:00* Test Item Value Reference Range Interpretation Comments Urine Ketones (test code = 53106-0) NEGATIVE NEGATIVE [facility] Krilvdecndrc8682-67-91 18:37:00* Test Item Value Reference Range Interpretation Comments Urine Urobilinogen (test code = 55499-9) 0.2 0.2-1 [facility] Irdvcdpfz8428-08-47 18:37:00* Test Item Value Reference Range Interpretation Comments Urine Bilirubin (test code = 1978-6) NEGATIVE NEGATIVE [facility] Junzo2217-61-87 18:37:00* Test Item Value Reference Range Interpretation Comments Urine Blood (test code = 12849-5) NEGATIVE NEGATIVE [facility] CenterU[facility] Livzv1506-50-46 18:37:00* Test Item Value Reference Range Interpretation Comments Urine Color (test code = 5778-6) YELLOW YELLOW [facility] Gvonsjc5672-85-64 18:37:00* Test Item Value Reference Range Interpretation Comments Urine Clarity (test code = 86377-7) SL CLOUDY CLEAR [facility] CenterU[facility] Specific Zrgoyad3815-42-32 18:37:00 * Test Item Value Reference Range Interpretation Comments Urine Specific [place] (test code = 5811-5) 1.025 1.010-1.02 5 [facility] Center[facility] nY7788-66-23 18:37:00* Test Item Value Reference Range Interpretation Comments Urine pH (test code = 15701-2) 5 5-7 [facility] Center[facility] Leukocyte Tfucjnxa1044-94-97 18:37:00* Test Item Value Reference Range Interpretation Comments Urine Leukocyte Esterase (test code = 5799-2) NEGATIVE NEGATIVE [facility] Center[facility] Bafyaep9733-55-89 18:37:00* Test Item Value Reference Range Interpretation Comments Urine Nitrite (test code = 39243-3) NEGATIVE NEGATIVE [facility] Xfdqdbm1088-50-40 18:37:00* Test Item Value Reference Range Interpretation Comments Urine Protein (test code = 5804-0) NEGATIVE NEGATIVE [facility] CenterU[facility] Glucose (UA)2018-02-05 18:37:00* Test Item Value Reference Range Interpretation Comments Urine Glucose (UA) (test code = 2349-9) NEGATIVE NEGATIVE [facility] CenterU[facility] Hpdquda4338-31-21 18:37:00* Test Item Value Reference Range Interpretation Comments Urine Ketones (test code = 69449-2) NEGATIVE NEGATIVE [facility] Upjhoxibhjig5308-60-25 18:37:00* Test Item Value Reference Range Interpretation Comments Urine Urobilinogen (test code = 11056-8) 0.2 0.2-1 [facility] Vravlbtxv4421-46-93 18:37:00* Test Item Value Reference Range Interpretation Comments Urine Bilirubin (test code = 1978-6) NEGATIVE NEGATIVE [facility] Survp9686-39-37 18:37:00* Test Item Value Reference Range Interpretation Comments Urine Blood (test code = 66910-4) NEGATIVE NEGATIVE [facility] CenterCreatine Kinase MA2444-94-64 13:06:00* Test Item Value Reference Range Interpretation Comments Creatine Kinase MB (test code = 97591-0) 1.40 0-5.0 [facility] CenterTroponin F2644-26-34 13:06:00* Test Item Value Reference Range Interpretation Comments Troponin I (test code = KEC2338) -0.001 0-0.300 [facility] CenterCreatine Jjndom0549-46-51 13:02:00* Test Item Value Reference Range Interpretation Comments Creatine Kinase (test code = 2157-6) 39 29-168 [facility] CenterProthrombin Smyw8722-92-57 12:53:00* Test Item Value Reference Range Interpretation Comments Prothrombin Time (test code = 5902-2) 12.4 11.9-14.5 [facility] CenterProthromb Time International Ratio 2018-02-05 12:53:00* Test Item Value Reference Range Interpretation Comments Prothromb Time International Ratio (test code = 6301-6) 1.00 Oral Anticoagulant Therapy INR Values:1. Low Intensity Therapy 1.5 - 2.02 . Moderate Intensity Therapy 2.0 - 3.03. High Intensity Therapy(1) 2.5 - 3. 54. High Intensity Therapy(2) 3.0 - 4.05. Panic Value INR > 5.0 [facility] CenterD-Dimer Quantitative (PE/DVT)2017-05-07 14:22:00* Test Item Value Reference Range Interpretation Comments D-Dimer Quantitative (PE/DVT) (test code = 75275-2) 1.82 0. 00-0.45 H As with all in vitro diagnostic tests, the test results should be interpreted by the physician in conjunction with clinical findings and other test results.Test results are reported in NEW D-dimer units(ug/mLFEU).[facility] CenterD-Dimer Quantitative (PE/DVT)2017-05-07 14:22:00* Test Item Value Reference Range Interpretation Comments D-Dimer Quantitative (PE/DVT) (test code = 53450-6) 1.82 0. 00-0.45 H As with all in vitro diagnostic tests, the test results should be interpreted by the physician in conjunction with clinical findings and other test results.Test results are reported in NEW D-dimer units(ug/mLFEU).[facility] CenterD-Dimer Quantitative (PE/DVT)2017-05-07 14:22:00* Test Item Value Reference Range Interpretation Comments D-Dimer Quantitative (PE/DVT) (test code = 20797-5) 1.82 0. 00-0.45 H As with all in vitro diagnostic tests, the test results should be interpreted by the physician in conjunction with clinical findings and other test results.Test results are reported in NEW D-dimer units(ug/mLFEU).[facility] CenterD-Dimer Quantitative (PE/DVT)2017-05-07 14:22:00* Test Item Value Reference Range Interpretation Comments D-Dimer Quantitative (PE/DVT) (test code = 77781-6) 1.82 0. 00-0.45 H As with all in vitro diagnostic tests, the test results should be interpreted by the physician in conjunction with clinical findings and other test results.Test results are reported in NEW D-dimer units(ug/mLFEU).[facility]odium Gxoip3458-98-18 14:20:00* Test Item Value Reference Range Interpretation Comments Sodium Level (test code = 2951-2) 140 136-145 [facility] CenterPotassium Qxxzi0442-28-33 14:20:00* Test Item Value Reference Range Interpretation Comments Potassium Level (test code = 2823-3) 3.9 3.5-5.1 [facility] CenterChloride Pedka0719-50-30 14:20:00* Test Item Value Reference Range Interpretation Comments Chloride Level (test code = 2075-0) 104 98-107 [facility] CenterCarbon Dioxide Umzuj1724-87-10 14:20:00* Test Item Value Reference Range Interpretation Comments Carbon Dioxide Level (test code = 2028-9) 24 22-29 [facility] CenterAnion Vvo5142-77-10 14:20:00* Test Item Value Reference Range Interpretation Comments Anion Gap (test code = 91973-0) 15.9 8-16 [facility] CenterBlood Urea Hhtmtnlb7669-13-50 14:20:00* Test Item Value Reference Range Interpretation Comments Blood Urea Nitrogen (test code = 3094-0) 25 7-26 [facility] CenterCreatinine2017-08-06 14:20:00* Test Item Value Reference Range Interpretation Comments Creatinine (test code = 2160-0) 1.87 0.57-1.11 H [facility] CenterBUN/Creatinine Wuabr5073-35-39 14:20:00* Test Item Value Reference Range Interpretation Comments BUN/Creatinine Ratio (test code = 3097-3) 13 6-25 [facility] CenterEstimat Glomerular Filtration Rate 2017-05-07 14:20:00* Test Item Value Reference Range Interpretation Comments Estimat Glomerular Filtration Rate (test code = 17852-2) 26 >60 L Ranges were taken from the National Kidney Disease Education Program and the [facility] literature.Reference ranges:60 or greater: Etaepz14-49 ( for 3 consecutive months): Chronic kidney disease 15 or less: Kidney failureConnally Memorial Medical CenterGlucose Whzif6218-72-04 14:20:00* Test Item Value Reference Range Interpretation Comments Glucose Level (test code = UEB7638) 120 74-118 H [facility] CenterCalcium Znkio9173-85-92 14:20:00* Test Item Value Reference Range Interpretation Comments Calcium Level (test code = 16504-0) 9.7 8.4-10.2 [facility] CenterTotal Yzzlwxstj1870-45-10 14:20:00* Test Item Value Reference Range Interpretation Comments Total Bilirubin (test code = 1975-2) 0.5 0.2-1.2 [facility] CenterAspartate Amino Transf (AST/SGOT) 2017-05-07 14:20:00* Test Item Value Reference Range Interpretation Comments Aspartate Amino Transf (AST/SGOT) (test code = Aspartate Amino Transf (AST/SGOT)) 19 5-34 [facility] CenterAlanine Aminotransferase (ALT/SGPT) 2017-05-07 14:20:00* Test Item Value Reference Range Interpretation Comments Alanine Aminotransferase (ALT/SGPT) (test code = 1742-6) 17 0-55 [facility] CenterTotal Povfitr0478-90-44 14:20:00* Test Item Value Reference Range Interpretation Comments Total Protein (test code = 2885-2) 6.7 6.5-8.1 [facility] CenterAlbumin2017-08-06 14:20:00* Test Item Value Reference Range Interpretation Comments Albumin (test code = 1751-7) 3.3 3.5-5.0 L [facility] CenterGlobulin2017-08-06 14:20:00* Test Item Value Reference Range Interpretation Comments Globulin (test code = 26087-4) 3.4 2.3-3.5 [facility] CenterAlbumin/Globulin Ieqnm0222-80-54 14:20:00 * Test Item Value Reference Range Interpretation Comments Albumin/Globulin Ratio (test code = 1759-0) 1.0 0.8-2.0 [facility] CenterAlkaline Drzrwcawwlr2512-23-08 14:20:00* Test Item Value Reference Range Interpretation Comments Alkaline Phosphatase (test code = 6768-6) 64 40-150 [facility]odium Toesf8169-06-08 14:20:00* Test Item Value Reference Range Interpretation Comments Sodium Level (test code = 2951-2) 140 136-145 [facility] CenterPotassium Ffzge5372-74-04 14:20:00* Test Item Value Reference Range Interpretation Comments Potassium Level (test code = 2823-3) 3.9 3.5-5.1 [facility] CenterChloride Mkxqa7559-24-50 14:20:00* Test Item Value Reference Range Interpretation Comments Chloride Level (test code = 2075-0) 104 98-107 [facility] CenterCarbon Dioxide Pjptt2350-54-58 14:20:00* Test Item Value Reference Range Interpretation Comments Carbon Dioxide Level (test code = 2028-9) 24 22-29 [facility] CenterAnion Dlz0708-65-85 14:20:00* Test Item Value Reference Range Interpretation Comments Anion Gap (test code = 10071-3) 15.9 8-16 [facility] CenterBlood Urea Whswcxli2796-58-47 14:20:00* Test Item Value Reference Range Interpretation Comments Blood Urea Nitrogen (test code = 3094-0) 25 7-26 [facility] CenterCreatinine2017-08-06 14:20:00* Test Item Value Reference Range Interpretation Comments Creatinine (test code = 2160-0) 1.87 0.57-1.11 H [facility] CenterBUN/Creatinine Llgay1793-27-36 14:20:00* Test Item Value Reference Range Interpretation Comments BUN/Creatinine Ratio (test code = 3097-3) 13 6-25 [facility] CenterEstimat Glomerular Filtration Rate 2017-05-07 14:20:00* Test Item Value Reference Range Interpretation Comments Estimat Glomerular Filtration Rate (test code = 43374-6) 26 >60 L Ranges were taken from the National Kidney Disease Education Program and the [facility] literature.Reference ranges:60 or greater: Yjehhg95-99 ( for 3 consecutive months): Chronic kidney disease 15 or less: Kidney failureConnally Memorial Medical CenterGlucose Xznkd7512-88-77 14:20:00* Test Item Value Reference Range Interpretation Comments Glucose Level (test code = UKW0818) 120 74-118 H [facility] CenterCalcium Fkjyl2094-25-02 14:20:00* Test Item Value Reference Range Interpretation Comments Calcium Level (test code = 42689-4) 9.7 8.4-10.2 [facility] CenterTotal Zphyweylj2652-33-10 14:20:00* Test Item Value Reference Range Interpretation Comments Total Bilirubin (test code = 1975-2) 0.5 0.2-1.2 [facility] CenterAspartate Amino Transf (AST/SGOT) 2017-05-07 14:20:00* Test Item Value Reference Range Interpretation Comments Aspartate Amino Transf (AST/SGOT) (test code = Aspartate Amino Transf (AST/SGOT)) 19 5-34 [facility] CenterAlanine Aminotransferase (ALT/SGPT) 2017-05-07 14:20:00* Test Item Value Reference Range Interpretation Comments Alanine Aminotransferase (ALT/SGPT) (test code = 1742-6) 17 0-55 [facility] CenterTotal Eopdwqe2165-92-43 14:20:00* Test Item Value Reference Range Interpretation Comments Total Protein (test code = 2885-2) 6.7 6.5-8.1 [facility] CenterAlbumin2017-08-06 14:20:00* Test Item Value Reference Range Interpretation Comments Albumin (test code = 1751-7) 3.3 3.5-5.0 L [facility] CenterGlobulin2017-08-06 14:20:00* Test Item Value Reference Range Interpretation Comments Globulin (test code = 01505-4) 3.4 2.3-3.5 [facility] CenterAlbumin/Globulin Yckly4433-34-96 14:20:00 * Test Item Value Reference Range Interpretation Comments Albumin/Globulin Ratio (test code = 1759-0) 1.0 0.8-2.0 [facility] CenterAlkaline Ajcgupshkkp9119-35-81 14:20:00* Test Item Value Reference Range Interpretation Comments Alkaline Phosphatase (test code = 6768-6) 64 40-150 [facility] CenterActivated Partial Thromboplast Time 2017-05-07 14:12:00* Test Item Value Reference Range Interpretation Comments Activated Partial Thromboplast Time (test code = 72038-2) 19.3 23.8-35.5 L [facility] CenterActivated Partial Thromboplast Time 2017-05-07 14:12:00* Test Item Value Reference Range Interpretation Comments Activated Partial Thromboplast Time (test code = 37916-6) 19.3 23.8-35.5 L [facility] CenterActivated Partial Thromboplast Time 2017-05-07 14:12:00* Test Item Value Reference Range Interpretation Comments Activated Partial Thromboplast Time (test code = 16293-6) 19.3 23.8-35.5 L [facility] CenterProthrombin Pbzj7359-99-88 14:11:00* Test Item Value Reference Range Interpretation Comments Prothrombin Time (test code = 5902-2) 12.2 11.9-14.5 [facility] CenterProthromb Time International Ratio 2017-05-07 14:11:00* Test Item Value Reference Range Interpretation Comments Prothromb Time International Ratio (test code = 6301-6) 0.86 Oral Anticoagulant Therapy INR Values:1. Low Intensity Therapy 1.5 - 2.02 . Moderate Intensity Therapy 2.0 - 3.03. High Intensity Therapy(1) 2.5 - 3. 54. High Intensity Therapy(2) 3.0 - 4.05. Panic Value INR > 5.0 [facility] CenterProthrombin Nfwg7038-80-25 14:11:00* Test Item Value Reference Range Interpretation Comments Prothrombin Time (test code = 5902-2) 12.2 11.9-14.5 [facility] CenterProthromb Time International Ratio 2017-05-07 14:11:00* Test Item Value Reference Range Interpretation Comments Prothromb Time International Ratio (test code = 6301-6) 0.86 Oral Anticoagulant Therapy INR Values:1. Low Intensity Therapy 1.5 - 2.02 . Moderate Intensity Therapy 2.0 - 3.03. High Intensity Therapy(1) 2.5 - 3. 54. High Intensity Therapy(2) 3.0 - 4.05. Panic Value INR > 5.0 [facility] CenterWhite Blood Fsovc5225-87-53 14:05:00* Test Item Value Reference Range Interpretation Comments White Blood Count (test code = 6690-2) 10.35 4.8-10.8 [facility] CenterRed Blood Zptcb6336-49-20 14:05:00* Test Item Value Reference Range Interpretation Comments Red Blood Count (test code = 789-8) 3.98 3.6-5.1 [facility] CenterHemoglobin2017-08-06 14:05:00* Test Item Value Reference Range Interpretation Comments Hemoglobin (test code = 73363-6) 12.4 12.0-16.0 [facility] CenterHematocrit2017-08-06 14:05:00* Test Item Value Reference Range Interpretation Comments Hematocrit (test code = 4544-3) 38.2 34.2-44.1 [facility] CenterMean Corpuscular Rugtos1318-89-09 14:05:00* Test Item Value Reference Range Interpretation Comments Mean Corpuscular Volume (test code = 787-2) 96.0 81-99 [facility] CenterMean Corpuscular Gxhyqcveij4277-18-08 14:05:00* Test Item Value Reference Range Interpretation Comments Mean Corpuscular Hemoglobin (test code = 785-6) 31.2 28-32 [facility] Corp[facility] Hemoglobin Concent 2017-05-07 14:05:00* Test Item Value Reference Range Interpretation Comments Mean Corpuscular Hemoglobin Concent (test code = 786-4) 32.5 31-35 [facility] CenterRed Cell Distribution Khnjy8707-44-04 14:05:00* Test Item Value Reference Range Interpretation Comments Red Cell Distribution Width (test code = 65556-2) 13.3 11.7 -14.4 [facility] CenterPlatelet Gmjgd1368-32-91 14:05:00* Test Item Value Reference Range Interpretation Comments Platelet Count (test code = 777-3) 340 140-360 [facility] CenterNeutrophils (%) (Auto)2017-05-07 14:05:00 * Test Item Value Reference Range Interpretation Comments Neutrophils (%) (Auto) (test code = 07935-6) 72.5 38.7-80.0 [facility] CenterLymphocytes (%) (Auto)2017-05-07 14:05:00 * Test Item Value Reference Range Interpretation Comments Lymphocytes (%) (Auto) (test code = 736-9) 17.9 18.0-39.1 L [facility] CenterMonocytes (%) (Auto)2017-05-07 14:05:00* Test Item Value Reference Range Interpretation Comments Monocytes (%) (Auto) (test code = 5905-5) 7.6 4.4-11.3 [facility] CenterEosinophils (%) (Auto)2017-05-07 14:05:00 * Test Item Value Reference Range Interpretation Comments Eosinophils (%) (Auto) (test code = 713-8) 0.2 0.0-6.0 [facility] CenterBasophils (%) (Auto)2017-05-07 14:05:00* Test Item Value Reference Range Interpretation Comments Basophils (%) (Auto) (test code = 706-2) 0.8 0.0-1.0 [facility] %2017-05-07 14:05:00* Test Item Value Reference Range Interpretation Comments IM GRANULOCYTES % (test code = IM GRANULOCYTES %) 1.0 0.0- 1.0 [facility] CenterNeutrophils # (Auto)2017-05-07 14:05:00* Test Item Value Reference Range Interpretation Comments Neutrophils # (Auto) (test code = 751-8) 7.5 2.1-6.9 H [facility] CenterLymphocytes # (Auto)2017-05-07 14:05:00* Test Item Value Reference Range Interpretation Comments Lymphocytes # (Auto) (test code = 00235-5) 1.9 1.0-3.2 [facility] CenterMonocytes # (Auto)2017-05-07 14:05:00* Test Item Value Reference Range Interpretation Comments Monocytes # (Auto) (test code = 742-7) 0.8 0.2-0.8 [facility]Eosinophils # (Auto)2017-05-07 14:05:00* Test Item Value Reference Range Interpretation Comments Eosinophils # (Auto) (test code = 711-2) 0.0 0.0-0.4 [facility]Basophils # (Auto)2017-05-07 14:05:00* Test Item Value Reference Range Interpretation Comments Basophils # (Auto) (test code = 704-7) 0.1 0.0-0.1 [facility] CenterAbsolute Immature Granulocyte (auto 2017-05-07 14:05:00* Test Item Value Reference Range Interpretation Comments Absolute Immature Granulocyte (auto (idania t code = Absolute Immature Granulocyte (auto) 0.10 0-0.1 [facility] CenterWhite Blood [id number] 14:05:00* Test Item Value Reference Range Interpretation Comments White Blood Count (test code = 6690-2) 10.35 4.8-10.8 [facility] CenterRed Blood [id number] 14:05:00* Test Item Value Reference Range Interpretation Comments Red Blood Count (test code = 789-8) 3.98 3.6-5.1 [facility] CenterHemoglobin2017-08-06 14:05:00* Test Item Value Reference Range Interpretation Comments Hemoglobin (test code = 23754-3) 12.4 12.0-16.0 [facility] CenterHematocrit2017-08-06 14:05:00* Test Item Value Reference Range Interpretation Comments Hematocrit (test code = 4544-3) 38.2 34.2-44.1 [facility] CenterMean Corpuscular [id number] 14:05:00* Test Item Value Reference Range Interpretation Comments Mean Corpuscular Volume (test code = 787-2) 96.0 81-99 [facility] CenterMean Corpuscular [id number] 14:05:00* Test Item Value Reference Range Interpretation Comments Mean Corpuscular Hemoglobin (test code = 785-6) 31.2 28-32 [facility] Hemoglobin Concent 2017-05-07 14:05:00* Test Item Value Reference Range Interpretation Comments Mean Corpuscular Hemoglobin Concent (test code = 786-4) 32.5 31-35 [facility] CenterRed Cell Distribution [id number] 14:05:00* Test Item Value Reference Range Interpretation Comments Red Cell Distribution Width (test code = 81025-2) 13.3 11.7 -14.4 [facility] CenterPlatelet [id number] 14:05:00* Test Item Value Reference Range Interpretation Comments Platelet Count (test code = 777-3) 340 140-360 [facility] CenterNeutrophils (%) (Auto)2017-05-07 14:05:00 * Test Item Value Reference Range Interpretation Comments Neutrophils (%) (Auto) (test code = 21403-1) 72.5 38.7-80.0 [facility] CenterLymphocytes (%) (Auto)2017-05-07 14:05:00 * Test Item Value Reference Range Interpretation Comments Lymphocytes (%) (Auto) (test code = 736-9) 17.9 18.0-39.1 L [facility] CenterMonocytes (%) (Auto)2017-05-07 14:05:00* Test Item Value Reference Range Interpretation Comments Monocytes (%) (Auto) (test code = 5905-5) 7.6 4.4-11.3 [facility] CenterEosinophils (%) (Auto)2017-05-07 14:05:00 * Test Item Value Reference Range Interpretation Comments Eosinophils (%) (Auto) (test code = 713-8) 0.2 0.0-6.0 [facility] CenterBasophils (%) (Auto)2017-05-07 14:05:00* Test Item Value Reference Range Interpretation Comments Basophils (%) (Auto) (test code = 706-2) 0.8 0.0-1.0 [facility] CenterIM GRANULOCYTES %2017-05-07 14:05:00* Test Item Value Reference Range Interpretation Comments IM GRANULOCYTES % (test code = IM GRANULOCYTES %) 1.0 0.0- 1.0 [facility] CenterNeutrophils # (Auto)2017-05-07 14:05:00* Test Item Value Reference Range Interpretation Comments Neutrophils # (Auto) (test code = 751-8) 7.5 2.1-6.9 H [facility] CenterLymphocytes # (Auto)2017-05-07 14:05:00* Test Item Value Reference Range Interpretation Comments Lymphocytes # (Auto) (test code = 40634-7) 1.9 1.0-3.2 [facility] CenterMonocytes # (Auto)2017-05-07 14:05:00* Test Item Value Reference Range Interpretation Comments Monocytes # (Auto) (test code = 742-7) 0.8 0.2-0.8 [facility] CenterEosinophils # (Auto)2017-05-07 14:05:00* Test Item Value Reference Range Interpretation Comments Eosinophils # (Auto) (test code = 711-2) 0.0 0.0-0.4 [facility] CenterBasophils # (Auto)2017-05-07 14:05:00* Test Item Value Reference Range Interpretation Comments Basophils # (Auto) (test code = 704-7) 0.1 0.0-[address] [facility] Granulocyte (auto 2017-05-07 14:05:00* Test Item Value Reference Range Interpretation Comments Absolute Immature Granulocyte (auto (idania t code = Absolute Immature Granulocyte (auto) 0.10 0-0.1 [facility] [address] [place], [place] [address] Patient Name: VICKI ESPARZA MR #: [id number] : 1940 Age/Sex: 77/F Req #: [id number] Adm Physician: Ordered by: DHRUV MOLINA MD Report #: [id number] Location: ER Room/Bed: Procedure: [id number] CT/CT CHEST W Exam Da te: 02/15/18 Exam Time: 1433 REPORT STATUS: Sig hcela PROCEDURE: CT scan of the chest WITH intravenous contrast, using pulmo nary embolus protocol. TECHNIQUE: The chest was scanned utilizing a m ultidetector helical scanner from the lung apex through the level of the adre nal glands after the IV administration of 60 cc of Isovue 370. Coronal and s agittal multiplanar reformations were obtained. COMPARISON: Chest x-ray 02/05/2018. INDICATIONS: SHORTNESS OF BREATH, HARD TO CATCH HER BREATH FINDINGS: Vasculature: The main pulmonary artery, right and left pulmona ry arteries, and their visualized lobar and segmental branches are patent, without filling defect. The pulmonary outflow tract is of normal caliber. Th ere is no ectasia or aneurysmal dilatation of the thoracic aorta. Atheroscler otic calcification of the aortic arch and great vessel origins with mild prox imal left subclavian arterial stenosis. Atherosclerotic calcification of the left anterior descending coronary artery. Lungs and Airways: Linear and re ticular opacities predominantly within the dependent lower lobes compatible w ith subsegmental atelectasis. No consolidation, gross fibrotic change, or bro nchiectasis. Trachea, mainstem bronchi, and the central lobar and segmental b ronchi are patent. Pleura: No pleural effusion or pneumothorax. H eart and mediastinum: The visualized portions of the thyroid gland are normal . There is no axillary, hilar, or mediastinal lymphadenopathy. Prominent of m ediastinal fat is noted. No pericardial effusion. No right ventricular dilata tion or septal bowing. Soft tissues: No focal soft tissue abnormality. Abdomen: Visualized portions of the liver, spleen, pancreas, adrenals, and left kidney are unremarkable. 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 Bon es: No osseous destructive lesions. Trabeculated, nonaggressive appearing michelle ent lesion in the left side of the manubrium likely to represent a hemangioma . IMPRESSION: No pulmonary embolus to the level of the segmental br anch pulmonary arteries. Atherosclerotic vascular disease. Minima l subsegmental atelectasis in the dependent lower lobes. Otherwise clear lung s. Small hiatal hernia. Dictated by: Hilario Chavez M.D. on 2017 at 14:57 Electronically approved by: Hilario Chavez M.D. on 02/15/2018 at 14:57 Dictated By: HILARIO CHAVEZ MD 1457 Transcribed By: CALVIN on 02/15/18 1457 COPY TO: DHRUV MOLINA MD CHEST SINGLE (NOT PORTABLE) [place] [address] Patient Name: VICKI ESPARZA MR #: [id number] : 1940 Age/Sex: 77/F Req #: [id number] Adm Physician: ROB VEGA MD Ordered by: AKIRA LYNN PARTY HOST/HOSTESS Report #: [id number] Location: [facility] Room/Bed: [place] [address] Procedure: [id number] DX/CHEST SINGLE (NOT PORTABLE) Exam Date: 02/05/18 Exam Time: 1425 REPORT STATUS: Signed PROCEDURE: A single AP view of the chest. COMPARISON: 01/13/17 INDICATIONS: CHEST PAIN, DIZZINE SS FINDINGS: Lines/tubes: None. Lungs: The lungs are well in flated and clear. There is no evidence of pneumonia or pulmonary edema. Pleura: There is no pleural effusion or pneumothorax. Heart and mediasti num: The heart and the mediastinum are unremarkable. Aorta is Mildly calcifi ed and tortuous. Bones: No acute bony abnormality. IMPRESSION: 1. No acute cardiopulmonary disease. Dictated by: Lore Spring M.D. on 02/05/2018 at 14:40 Electronically approved by: Lore Spring M.D. o n 02/05/2018 at 14:40 Dictated By: LORE SPRING MD Electronic ally Signed By: LORE SPRING MD on 02/05/18 1440 Transcribed By: CALVIN on 04/18 1440 COPY TO: AKIRA LYNN PARTY HOST/HOSTESS KNEE THREE VIEWS BILATERAL [place] [address] Patient Name: VICKI ESPARZA MR #: [id number] OB: 1940 Age/Sex: 76/F Req #: [id number] Adm Physic larry: Ordered by: ERICA GARCIAS MD Report #: [id number] Location: E R Room/Bed: Procedure: [id number] DX/KNEE THREE VIEWS BILATERAL Exam Date: 06/17/17 Exam Time: 193 REPORT STATUS: Signed EXAM: KNEE THREE VIEWS BILATERAL DATE: 06/17/2017 7: 11 PM Time stamp on exam: 1919 hours INDICATION: Fell in bedroom, tripped ove r cord COMPARISON: Right knee x-ray April 12, 2017 FINDINGS: RIGHT K NEE: Marked regional vascular calcifications. No fractures, lytic or blastic lesions. No excessive joint fluid. LEFT KNEE: Marked vascular calcifi cations. No fractures, lytic or blastic lesions. No excessive joint fluid. IMPRESSION: No evidence of a right or left knee fracture. Signed by: Dr. Shawna Salas M.D. on 06/17/2017 8:03 PM Dictated By: SHAWNA PORTER MD 02 Transcribed By: TROY on 06/17/172002 COPY TO: ERICA GARCIAS MD
[2020-07-09 21:56] LABS: BASOPHILS % 0.3 % (0.0-1.0); EOSINOPHILS # (AUTO) 0.2 (0.0-0.4); EOSINOPHILS % 1.5 % (0.0-6.0); HEMATOCRIT 42.3 % (34.2-44.1); HEMOGLOBIN 13.5 g/dL (12.0-16.0); LYMPHOCYTES # (AUTO) 0.4 (1.0-3.2); LYMPHOCYTES % 3.7 % (18.0-39.1); MEAN CORPUSCULAR HEMOGLOBIN 29.6 pg (28-32); MEAN CORPUSCULAR HGB CONC 31.9 g/dL (31-35); MEAN CORPUSCULAR VOLUME 92.8 fL (81-99); MONOCYTES # (AUTO) 0.3 (0.2-0.8); MONOCYTES % 2.5 % (4.4-11.3); NEUTROPHILS # (AUTO) 9.3 (2.1-6.9); NEUTROPHILS % 91.2 % (38.7-80.0); PLATELET COUNT 219 x10e3/uL (140-360); RED BLOOD COUNT 4.56 x10e6/uL (3.6-5.1)
--- NOTE | 2020-07-09 22:01 | Emergency Department Note ---
History of Present Illnes History of Present Illness Chief Complaint: General Medicine Complaints History of Present Illness This is a 79 year old female COMES IN TO ED AFTER BEING DISCHARGED FROM THIS SAME HOSPITAL TODAY. PT WAS ADMITTED FOR SEPSIS AND WHAT WAS ASSUMED TO BE PNEUMONIA, PATIENT STATES SHE STARTED DEVELOPING FEVER AND ABD PAIN ABOUT 3 HOURS AGO. WELL DIARRHEA, . Historian: Patient Arrival Mode: Car Onset (how long ago): hour(s) (3) Location: ABD Quality: PAIN, FEVER, DIARRHEA Radiation: Reports non-radiation Severity: moderate Onset quality: sudden Duration (how long): hour(s) (3) Timing of current episode: constant Progression: worsening Context: Reports recent illness (PNEUMONIA ON IV ANTIBIOTICS) Relieving factors: none Exacerbating factors: none Associated symptoms: Reports fever/chills, Reports malaise, Reports weakness Treatments prior to arrival: antipyretic Past Medical/Family History Physician Review I have reviewed the patient's past medical and family history. Any updates have been documented here. Past Medical History Recent Fever: Yes Clinical Suspicion of Infectio: Yes New/Unexplained Change in Ment: No Past Medical History: Hypertension, Hypothyroidism, CAD, Hyperlipedemia Other Medical History: PVD Past Surgical History: Cholecysctectomy, Hysterectomy, T&A, PCI, Hip Replacement Other Surgery: Left Hip Surgery, Right Nephrectomy 2016, Stents 2018, Tonsillectomy 1947 Social History Alcohol Use: None Any Illegal Drug Use: No Family History Family history of heart diseas: No Other Last Tetanus: 2017 Review of Systems Review of Systems Constitutional: Reports as per HPI EENTM: Reports no symptoms Cardiovascular: Reports no symptoms Respiratory: Reports no symptoms Gastrointestinal: Reports as per HPI Genitourinary: Reports no symptoms Musculoskeletal: Reports no symptoms Integumentary: Reports no symptoms Neurological: Reports no symptoms Psychological: Reports no symptoms Endocrine: Reports no symptoms Hematological/Lymphatic: Reports no symptoms Physical Exam Related Data Allergies: Coded Allergies: levofloxacin (Verified Allergy, Severe, Unconscious, 10/16/18) promethazine (Verified Allergy, Severe, UNCONCIOUS, 10/16/18) labetalol (Verified Allergy, Mild, SEVERE WEAKNESS, 10/16/18) cefuroxime (Verified Allergy, Unknown, 03/17/20) sulfamethoxazole (Unverified Adverse Reaction, Severe, NONAROUSABLE, 10/16/18) PER PATIENT trimethoprim (Unverified Adverse Reaction, Severe, NONAROUSABLE, 10/16/18) PER PATIENT codeine (Verified Adverse Reaction, Intermediate, HALLUCINATIONS, 10/16/18) Triage Vital Signs Vital Signs Date Time Temp Pulse Resp B/P (MAP) Pulse Ox O2 Delivery O2 Flow Rate FiO2 07/09/20 21:40 100.4 92 20 135/70 96 Room Air Vital signs reviewed: Yes Physical Exam CONSTITUTIONAL Constitutional: Present well-developed, Present well-nourished, Present distressed (MILD) HENT HENT: Present normocephalic, Present atraumatic, Present oropharynx clear/moist, Present nose normal HENT L/R: Present left ext ear normal, Present right ext ear normal EYES Eyes: Reports PERRL, Reports conjunctivae normal NECK Neck: Present ROM normal PULMONARY Pulmonary: Present effort normal, Present breath sounds normal CARDIOVASCULAR Cardiovascular: Present regular rhythm, Present heart sounds normal, Present capillary refill normal, Present normal rate GASTROINTESTINAL Abdominal: Present soft, Present tender (LOWER ABD), Present other (BOWEL SOUND S SLIGHLTY HYPERACTIVE) GENITOURINARY Genitourinary: Present exam deferred SKIN Skin: Present warm, Present dry MUSCULOSKELETAL Musculoskeletal: Present ROM normal NEUROLOGICAL Neurological: Present alert, Present oriented x 3, Present no gross motor or sensory deficits PSYCHOLOGICAL Psychological: Present mood/affect normal, Present judgement normal Results Laboratory Laboratory Laboratory Tests Test 07/09/20 22:45 07/09/20 22:20 07/09/20 21:45 White Blood Count 10.13 x10e3/uL (4.8-10.8) Red Blood Count 4.56 x10e6/uL (3.6-5.1) Hemoglobin 13.5 g/dL (12.0-16.0) Hematocrit 42.3 % (34.2-44.1) Mean Corpuscular Volume 92.8 fL (81-99) Mean Corpuscular Hemoglobin 29.6 pg (28-32) Mean Corpuscular Hemoglobin Concent 31.9 g/dL (31-35) Red Cell Distribution Width 13.0 % (11.7-14.4) Platelet Count 219 x10e3/uL (140-360) Neutrophils (%) (Auto) 91.2 % (38.7-80.0) Lymphocytes (%) (Auto) 3.7 % (18.0-39.1) Monocytes (%) (Auto) 2.5 % (4.4-11.3) Eosinophils (%) (Auto) 1.5 % (0.0-6.0) Basophils (%) (Auto) 0.3 % (0.0-1.0) Neutrophils # (Auto) 9.3 (2.1-6.9) Lymphocytes # (Auto) 0.4 (1.0-3.2) Monocytes # (Auto) 0.3 (0.2-0.8) Eosinophils # (Auto) 0.2 (0.0-0.4) Basophils # (Auto) 0.0 (0.0-0.1) Absolute Immature Granulocyte (auto 0.08 x10e3/uL (0-0.1) Sodium Level 138 mmol/L (136-145) Potassium Level 3.4 mmol/L (3.5-5.1) Chloride Level 106 mmol/L (98-107) Carbon Dioxide Level 21 mmol/L (22-29) Anion Gap 14.4 mmol/L (8-16) Blood Urea Nitrogen 15 mg/dL (7-26) Creatinine 1.19 mg/dL (0.57-1.11) Estimat Glomerular Filtration Rate 44 ML/MIN (60-) BUN/Creatinine Ratio 13 (6-25) Glucose Level 97 mg/dL (74-118) Lactic Acid Level 2.1 mmol/L (0.5-2.0) Calcium Level 8.1 mg/dL (8.4-10.2) Total Bilirubin 0.4 mg/dL (0.2-1.2) Aspartate Amino Transf (AST/SGOT) 31 IU/L (5-34) Alanine Aminotransferase (ALT/SGPT) 76 IU/L (0-55) Alkaline Phosphatase 141 IU/L (40-150) Creatine Kinase 22 IU/L (29-168) Creatine Kinase MB 0.60 ng/mL (0-5.0) Troponin I < 0.001 ng/mL (0-0.300) Total Protein 5.7 g/dL (6.5-8.1) Albumin 2.6 g/dL (3.5-5.0) Globulin 3.1 g/dL (2.3-3.5) Albumin/Globulin Ratio 0.8 (0.8-2.0) Laboratory Tests Test 07/09/20 21:45 Lab results reviewed: Yes Imaging Imaging results reviewed: Yes Impressions Procedure: [id number] CT/CT ABDOMEN/PELVIS W Exam Date: 07/09/20 Exam Time: 2244 REPORT STATUS: Signed EXAM: CT Abdomen and Pelvis WITH contrast INDICATION: ^Y ^abd pain, fever, diarrhea ^20200709 ^2245 ^Y COMPARISON: TECHNIQUE: Abdomen and pelvis were scanned utilizing a multidetector helical scanner from the lung base to the pubic symphysis after administration of IV contrast. Coronal and sagittal reformations were obtained. Routine protocol was performed. Scan was performed when during portal venous phase. IV CONTRAST: 100 mL of Isovue 370 ORAL CONTRAST: None COMPLICATIONS: None FINDINGS: LOWER THORAX: Small pleural effusions with mild adjacent compressive atelectasis. HEPATOBILIARY: There is intra- and extra- hepatic biliary dilation likely post cholecystectomy reservoir effect. No suspicious hepatic lesions. Portal and hepatic veins are patent. GALLBLADDER: There are cholecystectomy clips. SPLEEN: No splenomegaly. PANCREAS: No focal masses or ductal dilatation. ADRENALS: No adrenal nodules KIDNEYS/URETERS: Status post right nephrectomy with unchanged retroperitoneal densities with internal fat that likely represent infarcted retroperitoneal fat. Minimal stranding about the left kidney, no significant changed. Subcentimeter cortical hypodensities are too small to characterize, likely cysts. No hydronephrosis. GI TRACT: No abnormal distention, wall thickening, or evidence of bowel obstruction. There are diverticula within the colon without evidence of diverticulitis. Appendix is not clearly identified. There is however no fat stranding or adenopathy in the right lower quadrant to suggest appendicitis. Fluid within the sigmoid colon and rectum. PELVIC ORGANS/BLADDER: Unremarkable. LYMPH NODES: No lymphadenopathy. VESSELS: Atherosclerosis without aneurysmal dilatation of the abdominal aorta.. PERITONEUM / RETROPERITONEUM: No free air or fluid. BONES: ORIF of the left femur.. Degenerative changes of the lumbar spine. IMPRESSION: Fluid within the sigmoid colon and rectum compatible with diarrheal illness. Otherwise, no acute abdominopelvic process. Signed by: Lesley Freed MD on 07/09/2020 11:27 PM Dictated By: LESLEY FREED MD 5264 Transcribed By: TROY on 07/09/202326 COPY TO: ERICA GARCIAS MD~ Procedure: [id number] DX/CHEST SINGLE (PORTABLE) Exam Date: 07/09/20 Exam Time: 2300 REPORT STATUS: Signed EXAMINATION: CHEST SINGLE (PORTABLE) INDICATION: fever COMPARISON: Radiograph dated 07/06/2020. FINDINGS: TUBES and LINES: None. LUNGS AND PLEURA: Hazy bibasilar densities and blunting of the costophrenic angles likely correspond to small pleural effusions as seen on same-day CT. Otherwise, no consolidation. No pneumothorax. HEART AND MEDIASTINUM: The cardiomediastinal silhouette is unremarkable. BONES AND SOFT TISSUES: No acute osseous lesion. Soft tissues are unremarkable. IMPRESSION: New small pleural effusions. No consolidation Signed by: Lesley Freed MD on 07/09/2020 11:31 PM Dictated By: LESLEY FREED MD 30 Transcribed By: TROY on 07/09/202330 COPY TO: ERICA GARCIAS MD~ Assessment & Plan Medical Decision Making MDM PT WITH FEVER, ABD PAIN, DIARRHEA CBC, CMP, AMYLASE,LIPASE, UA, CT ABD/PELVIS, CXR, C DIFF, LACTIC ACID, BLOOD CULTURES, URINE CULTURE ORDERED TO EVAL FOR SEPSIS, PNEUMONIA, COLITIS, C DIFF COLITIS, DIVERTICULITIS, UTI, ELECTROLYTE ABNORMALITY TYLENOL 350 MG PO ORDERED ZOSYN 3.375 GRAMS IV ORDERED ZOFRAN 4 MG IV ORDERED NS 1 LITER IV BOLUS ORDERED INITIAL LACTIC ACID 2.1, REPEAT LACTIC ACID 1.[address] VEGA, AT THIS CONCERN AT THIS TIME IS PT HAS C DIFF COLITIS WITH DEVELOPMENT OF FEVER, AND DIARRHEA, AND RECENT IV ANTIBIOTICS Assessment & Plan Final Impression: (1) Fever (2) Sepsis (3) Infectious diarrhea (4) Diarrhea Depart Disposition: ADMITTED Last Vital Signs Date Time Temp Pulse Resp B/P (MAP) Pulse Ox O2 Delivery O2 Flow Rate FiO2 07/09/20 21:40 100.4 92 20 135/70 96 Room Air Home Meds Reported Medications Calcium Carbonate (TUMS) 300 Mg Tab.chew, 1 EA PO Q6H PRN for INDIGESTION 03/17/20 Amlodipine Besylate (AMLODIPINE BESYLATE) 5 Mg Tablet, 5 MG PO DAILY, #30 TAB 10/16/18 Clopidogrel Bisulfate (CLOPIDOGREL) 75 Mg Tablet, 75 MG PO DAILY, #30 TAB 10/16/18 Aspirin (ASPIR 81) 81 Mg Tablet.dr, 81 MG PO HS 01/14/18 Calcium Carbonate/Vitamin D3 (OS-CLARI 500+D TABLET) 1 Each Tablet, 500 MG PO BID, #30 TAB 07/27/14 Lovastatin (LOVASTATIN) 40 Mg Tablet, 40 MG PO HS 07/27/14 Liothyronine Sodium (LIOTHYRONINE SODIUM) 5 Mcg Tablet, 15 MCG PO DAILY 07/27/14 Levothyroxine Sodium (LEVOTHYROXINE SODIUM) 75 Mcg Tablet, 100 MCG PO DAILY, #30 TAB 07/27/14 Medications in the ED Acetaminophen 325 mg ONCE ONCE PO ; Start 07/09/20 at 21:30; Stop 07/09/20 at 21:39; Status DC Sodium Chloride 1,000 ml @ 100 mls/hr Q10H IV ; Start 07/09/20 at 21:30; Stop 08/08/20 at 21:29 Piperacillin Sod/ Tazobactam Sod 50 ml @ 50 mls/hr NOW ONCE IV ; Start 07/09/20 at 21:30; Stop 07/09/20 at 22:29 Ondansetron HCl 4 mg NOW STAT IV ; Start 07/09/20 at 21:30; Stop 07/09/20 at 21:39; Status DC ERICA GARCIAS MD Jul 09, 2020 22:01
[2020-07-09 22:16] LABS: ALANINE AMINOTRANSFERASE 76 IU/L (0-55); ALBUMIN 2.6 g/dL (3.5-5.0); ALBUMIN/GLOBULIN RATIO 0.8 (0.8-2.0); ALKALINE PHOSPHATASE 141 IU/L (40-150); ANION GAP 14.4 mmol/L (8-16); BLOOD UREA NITROGEN 15 mg/dL (7-26); BUN/CREATININE RATIO 13 (6-25); CALCIUM 8.1 mg/dL (8.4-10.2); CARBON DIOXIDE 21 mmol/L (22-29); CHLORIDE 106 mmol/L (98-107); CREATINE KINASE 22 IU/L (29-168); CREATININE, SERUM 1.19 mg/dL (0.57-1.11); EST GLOMERULAR FILTRATION RATE 44 ML/MIN (60-); GLUCOSE 97 mg/dL (74-118); POTASSIUM 3.4 mmol/L (3.5-5.1); SODIUM 138 mmol/L (136-145)
[2020-07-09] MEDS: SODIUM CHLORIDE 0.9% 1000ML 1,000 ML IV SCH (22:40)
[2020-07-09] MEDS ORDERED: IOPAMIDOL 370 MG/ML 200 ML INFUS..BTL INJ ONE (22:53)
[2020-07-09] MEDS ORDERED: SODIUM CHLORIDE 0.9% 50ML 50 ML ONE (22:53)
--- NOTE | 2020-07-09 23:30 | Diagnostic Imaging Report ---
EXAM: CT Abdomen and Pelvis WITH contrast INDICATION: ^Y ^abd pain, fever, diarrhea ^[id number] ^2245 ^Y COMPARISON: TECHNIQUE: Abdomen and pelvis were scanned utilizing a multidetector helical scanner from the lung base to the pubic symphysis after administration of IV contrast. Coronal and sagittal reformations were obtained. Routine protocol was performed. Scan was performed when during portal venous phase. IV CONTRAST: 100 mL of Isovue 370 ORAL CONTRAST: None COMPLICATIONS: None FINDINGS: LOWER THORAX: Small pleural effusions with mild adjacent compressive atelectasis. HEPATOBILIARY: There is intra- and extra- hepatic biliary dilation likely post cholecystectomy reservoir effect. No suspicious hepatic lesions. Portal and hepatic veins are patent. GALLBLADDER: There are cholecystectomy clips. SPLEEN: No splenomegaly. PANCREAS: No focal masses or ductal dilatation. ADRENALS: No adrenal nodules KIDNEYS/URETERS: Status post right nephrectomy with unchanged retroperitoneal densities with internal fat that likely represent infarcted retroperitoneal fat. Minimal stranding about the left kidney, no significant changed. Subcentimeter cortical hypodensities are too small to characterize, likely cysts. No hydronephrosis. GI TRACT: No abnormal distention, wall thickening, or evidence of bowel obstruction. There are diverticula within the colon without evidence of diverticulitis. Appendix is not clearly identified. There is however no fat stranding or adenopathy in the right lower quadrant to suggest appendicitis. Fluid within the sigmoid colon and rectum. PELVIC ORGANS/BLADDER: Unremarkable. LYMPH NODES: No lymphadenopathy. VESSELS: Atherosclerosis without aneurysmal dilatation of the abdominal aorta.. PERITONEUM / RETROPERITONEUM: No free air or fluid. BONES: ORIF of the left femur.. Degenerative changes of the lumbar spine. IMPRESSION: Fluid within the sigmoid colon and rectum compatible with diarrheal illness. Otherwise, no acute abdominopelvic process. Signed by: Terrell Leiva MD on 07/09/2020 11:27 PM
--- NOTE | 2020-07-09 23:34 | Diagnostic Imaging Report ---
EXAMINATION: CHEST SINGLE (PORTABLE) INDICATION: fever COMPARISON: Radiograph dated 07/06/2020. FINDINGS: TUBES and LINES: None. LUNGS AND PLEURA: Hazy bibasilar densities and blunting of the costophrenic angles likely correspond to small pleural effusions as seen on same-day CT. Otherwise, no consolidation. No pneumothorax. HEART AND MEDIASTINUM: The cardiomediastinal silhouette is unremarkable. BONES AND SOFT TISSUES: No acute osseous lesion. Soft tissues are unremarkable. IMPRESSION: New small pleural effusions. No consolidation Signed by: Terrell Leiva MD on 07/09/2020 11:31 PM
[2020-07-10] VITALS (8 sets, daily range): BP systolic 139–177; BP diastolic 62–75
[2020-07-10] MEDS ORDERED: KCL 20MEQ/.9 SOD CHL 1,000 ML IV ONE
[2020-07-10] MEDS: SODIUM CHLORIDE 0.9% 1000ML 1,000 ML IV SCH (00:14)
[2020-07-10 00:18] LABS: BILIRUBIN,URINE NEGATIVE (NEGATIVE); CLARITY,URINE CLEAR (CLEAR); COLOR,URINE YELLOW (YELLOW); KETONES,URINE NEGATIVE (NEGATIVE); LEUKOCYTE ESTERASE ,URINE NEGATIVE (NEGATIVE); NITRITE,URINE NEGATIVE (NEGATIVE); PROTEIN,URINE DIPSTICK NEGATIVE (NEGATIVE); URINE UROBILINOGEN 0.2 mg/dL (0.2 - 1)
[2020-07-10 00:24] LABS: BACTERIA,URINE FEW /HPF; EPITHELIAL CELLS,URINE FEW /LPF; RBC,URINE 0-5 /HPF (0-5); WBC,URINE (MAN) 0-5 /HPF (0-5)
--- OUTSIDE RECORDS SUMMARY | 2020-07-10 01:03 | XMS REPORT | Continuity of Care Document ---
Author Author [facility] t Organization [facility] Address [address] [place] [address] Phone Unavailable Care Team Providers Care Contour Sander Name Role Phone GARY RUBY, MD RIVAS PCP Iva GARCIAS Attphys Unavailable ROB VEGA Attphys Unavailable SWEET A JIM Attphys Unavailable JESUS ALBERTO, T HORTA Attphys Unavailable Kelly SÁNCHEZ INNA Attphys Unavailable JESSE, P DHRUV Attphys Unavailable ROB VEGA Admphys Unavailable Payers Payer Name Policy Type Policy Number Effective Date Expiration Date Shawna [facility] [id number] 2019 00:00:00 [facility] Cdc Review [id number] [facility] Problems Condition Name Condition Details Condition Category Status Onset Date Resolution Date Last Treatment Date Treating Clinician Comments Source Diarrhea Diarrhea Problem Active 2015-08-20 00:00:00 [facility] Chest pain Chest pain Problem Active [facility] Dizziness Dizziness Problem Active [facility] Hypertension Hypertension Problem Active [facility] Syncope Syncope Problem Active [facility] Nausea Nausea Problem Active [facility] Unstable angina pectoris Unstable angina Problem Active [facility] Weakness Problem Active [facility] Fall Problem Active [facility] Contusion of left hip Problem Active [facility] Pain of left hip Problem Active [facility] Urinary tract infection Problem Active [facility] Muscle spasm Problem Active [facility] Severe sepsis Problem Active [facility] Pneumonia Problem Active [facility] Abnormal kidney function Problem Active [facility] Allergies, Adverse Reactions, Alerts Allergy Name Allergy Type Status Severity Reaction(s) Onset Date Inacti ve Date Treating Clinician Comments Source Cefuroxime Allergy to substance Active 2020-03-17 00:00:00 [facility] Codeine Propensity to adverse reactions Active Moderate GONZALEZ UCINATIONS 2018-10-16 00:00:00 [facility] Labetalol Allergy to substance Active Mild SEVERE WEAKNESS 201 06-02-15 00:00:00 [facility] Sulfamethoxazole Propensity to adverse reactions Active Severe NONAROUSABLE 2018-10-16 00:00:00 [facility] Trimethoprim Propensity to adverse reactions Active Severe NO NAROUSABLE 2018-10-16 00:00:00 [facility] Promethazine Allergy to substance Active Severe UNCONCIOUS 10-16 00:00:00 [facility] Levofloxacin Allergy to substance Active Severe Unconscious 2018 00:00:00 [facility] Family History Family Member Diagnosis Comments Start Date Stop Date Source 33 FATHER Family history of hypertension [facility] 33 FATHER Family history of malignant neoplasm of prostate [facility] 32 MOTHER Family history of acute myocardial infarction [facility] Social History Social Habit Start Date Stop Date Quantity Comments Source Sex Assigned At 1940 00:00:00 1940 00:00:00 Female [facility] Medications Ordered Medication Name Filled Medication Name Start Date Stop Da te Current Medication? Ordering Clinician Indication Dosage Frequency Signature (SIG) Comments Components Source Amlodipine Besylate Amlodipine Besylate Yes 5 Daily [facility] Aspirin (Aspir 81) 81 Mg TABLET. Aspirin (Aspir 81) 81 Mg TABLET. Yes 81 Bedtime [facility] Calcium Carbonate (Tums) 300 Mg TAB.CHEW Calcium Carbo lucas (Tums) 300 Mg TAB.CHEW Yes 1 Every 6 Hours as needed for I ndigestion [facility] Calcium Carbonate/Vitamin D3 (Os-Ronald 500+D Tablet) 1 E ach TABLET Calcium Carbonate/Vitamin D3 (Os-Ronald 500+D Tablet) 1 Each TABLET Yes 500 Twice A Day [facility] Clopidogrel Bisulfate (Clopidogrel) 75 Mg TABLET Clopi dogrel Bisulfate (Clopidogrel) 75 Mg TABLET Yes 75 Daily [facility] Levothyroxine Sodium Levothyroxine Sodium Yes 100 Daily [facility] Liothyronine Sodium Liothyronine Sodium Yes 15 Daily [facility] Lovastatin Lovastatin Yes 40 Bedtime [facility] Cephalexin Cephalexin 2020-03-17 00:00:00 No 500 Twi ce A Day [facility] Diphenhydramine Hcl (Benadryl) 25 Mg CAPSULE Diphenhyd ramine Hcl (Benadryl) 25 Mg CAPSULE 2020-03-17 00:00:00 No 25 Bedtime as ne eded for Insomnia [facility] Ibuprofen Ibuprofen 2020-03-17 00:00:00 No 600 Every 8 Hours as needed for Moderate Pain (4-6) [facility] Tramadol/Apa Tramadol/Apa 2020-03-17 00:00:00 No 1 Every 6 Hours as needed for Moderate Pain (4-6) [facility] Labetalol Hcl Labetalol Hcl 2018-10-16 00:00:00 No 50 Twice A Day [facility] Amlodipine Amlodipine 2018-03-08 00:00:00 No 5 Amaya ly [facility] Atenolol Atenolol 2018-03-08 00:00:00 No 100 Bedtime [facility] Benazepril Hcl Benazepril Hcl 2018-03-08 00:00:00 No 20 Bedtime [facility] Clopidogrel Bisulfate (Clopidogrel) 75 Mg TABLET Clopi dogrel Bisulfate (Clopidogrel) 75 Mg TABLET 2018-03-08 00:00:00 No 75 Daily [facility] Ticagrelor (Brilinta) 90 Mg TABLET Ticagrelor (Brilinta) 90 Mg T ABLET 2018-03-08 00:00:00 No 90 Twice A Day [facility] Amlodipine Besylate Amlodipine Besylate 2018-02-05 00:00:00 No 5 Daily [facility] Omeprazole Omeprazole 2018-01-14 00:00:00 No 40 Amaya ly [facility] Cephalexin (Keflex) 250 Mg CAPSULE Cephalexin (Keflex) 250 Mg CA PSULE 2017-01-14 00:00:00 No 250 Twice A Day [facility] Docusate Sodium (Colace) 100 Mg CAP Docusate Sodium (Colace) 100 Mg CAP 2016-03-27 00:00:00 No 100 Twice A Day [facility] Tramadol Hcl (Ultram) 50 Mg TABLET Tramadol Hcl (Ultram) 50 Mg T [facility] 2016-03-27 00:00:00 No 50 Every 4 Hours as nee ded for Pain [facility] Aspirin Aspirin 2015-10-17 00:00:00 No 81 Bedtime [facility] Methocarbamol (Robaxin-750) 750 Mg TABLET Methocarbamo l (Robaxin-750) 750 Mg TABLET 2015-07-27 00:00:00 No 750 Three Times A Day [facility] [place]-3 Fatty Acids/Fish Oil ([place] 3 Fish Oil Softgel ) 1 Each CAPSULE.DR Cee 3 Fatty Acids/Fish Oil ([place] 3 Fish Oil Softgel) 1 Each CAPSULE. 2015-07-27 00:00:00 No [facility] Tramadol Hcl (Ultram 50MG*) 50 Mg TAB Tramadol Hcl (Ultram 50MG* ) 50 Mg TAB 2015-07-27 00:00:00 No 50 Every 6 Hours for Pa in [facility] Ubidecarenone (Co Q-10) 10 Mg CAPSULE Ubidecarenone (Co Q-10) 10 Mg CAPSULE 2015-07-27 00:00:00 No [facility] Aspirin (Aspirin Chew) 81 Mg CHEW Aspirin (Aspirin Chew) 81 Mg C HEW 2014-07-27 00:00:00 No 81 Bedtime [facility] Atenolol Atenolol 2014-07-27 00:00:00 No 100 Bedtime [facility] Benazepril Hcl Benazepril Hcl 2014-07-27 00:00:00 No 40 Bedtime [facility] Calcium Carbonate (Oscal D) 500 Mg TAB Calcium Carbonate (Oscal D) 500 Mg TAB 2014-07-27 00:00:00 No 500 Three Times A Day [facility] Levothyroxine Sodium Levothyroxine Sodium 2014-07-27 00:00:00 No 75 Daily [facility] Liothyronine Sodium Liothyronine Sodium 2014-07-27 00:00:00 No 5 Daily [facility] Lovastatin Lovastatin 2014-07-27 00:00:00 No 40 Bed time [facility] Omeprazole Omeprazole 2014-07-27 00:00:00 No 40 Amaya ly [facility] Ubidecarenone (Coq-10) 30 Mg CAPSULE Ubidecarenone (Coq-10) 30 M g CAPSULE 2014-07-27 00:00:00 No 30 Daily [facility] Azilsartan Medoxomil (Edarbi) 40 Mg TABLET Azilsartan Medoxomil (Edarbi) 40 Mg TABLET 2013-03-03 00:00:00 No Daily [facility] Nisoldipine Nisoldipine 2013-01-19 00:00:00 No 8.5 T wice A Day [facility] Vital Signs Vital Name Observation Time Observation Value Comments Source Weight 2020-07-09 05:35:00 149.19 [lb_av] [facility] BMI (Body Mass Index) 2020-07-09 05:35:00 26.4 kg/m2 [facility] Body Temperature 2020-07-09 04:00:00 97.6 [degF] [facility] Weight 2020-07-05 09:12:00 145 [lb_av] [facility] BMI (Body Mass Index) 2020-07-05 09:12:00 25.7 kg/m2 [facility] Body Temperature 2020-04-21 13:00:00 98.5 [degF] [facility] Procedures Procedure Date / Time Performed Performing Clinician [facility] e Computed tomography of brain without radiopaque contrast 2020-07 00:00:00 [facility] Computed tomography of cervical spine without contrast 4 00:00:00 [facility] EXTIRPATION OF MATTER FROM L INT CAROTID, OPEN APPROACH 00:00:00 [facility] SUPPLEMENT L COM CAROTID WITH SYNTH SUB, OPEN APPROACH 2020-04-02 0 00:00:00 [facility] SUPPLEMENT L INT CAROTID WITH SYNTH SUB, OPEN APPROACH 2020-04-02 0 00:00:00 [facility] Magnetic resonance imaging of brain without contrast 2020-04-16 00:00:[address] [facility] [address] angiography of neck 2020-04-14 00:00:00 [facility] Computed tomography of brain without radiopaque contrast 2020-04 00:00:00 [facility] Computed tomography of cervical spine without contrast 2020-04-01 2 00:00:[address] [facility] [address] angiogram extremity lower w contrast 2020-03-19 00:00:00 [facility] X-ray of chest, two views 2019-11-17 00:00:00 RULA GRANDA [facility] Plan of Care Planned Activity Planned Date Details Comments Source Instructions Infection Control [facility] Instructions Low Sodium Diet [facility] Encounters Start Date/Time End Date/Time Encounter Type Admission Type Attendi [facility] Care Department Encounter ID Source 2020-07-06 05:54:00 2020-07-09 08:41:00 Discharged Inpatient 1 ROB VEGA [facility] [id number] [facility] 2020-07-05 09:15:00 2020-07-05 13:25:00 Departed Emergency Room 1 JIM CORDERO [facility] [id number] [facility] 2020-04-14 14:04:00 2020-04-21 16:34:00 Discharged Inpatient 1 ROB VEGA [facility] [id number] [facility] 2020-03-17 18:35:00 2020-03-20 16:00:00 Discharged Inpatient (obs) 1 ROB VEGA [facility] [id number] [facility] 2019-11-17 10:41:00 2019-11-18 14:22:00 Discharged Inpatient (obs) 1 RULA GRANDA [facility] [id number] [facility] 2019-08-17 12:50:00 2019-08-17 16:56:00 Departed Emergency Room 1 JIM CORDERO [facility] [id number] [facility] 2019-05-17 11:54:00 2019-05-17 11:54:00 Outpatient [facility] [address] [place] [address] 2018-10-16 17:46:00 2018-10-16 19:36:00 Departed Emergency Room [facility] [id number] [facility] 2018-03-26 08:38:00 2018-03-26 12:16:00 Departed Emergency Room 1 INNA SÁNCHEZ [facility] [id number] [facility] 2018-03-08 07:53:00 2018-03-08 09:40:00 Departed Emergency Room [facility] [id number] [facility] 2018-02-15 10:56:00 2018-02-15 17:43:00 Departed Emergency Room 1 DHRUV MOLINA [facility] [id number] [facility] 2018-02-09 07:07:00 2018-02-09 07:07:00 Registered Surgical Day Care [facility] [id number] [facility] 2018-02-05 14:04:00 2018-02-06 18:50:00 Discharged Inpatient (obs) ER ROB VEGA [facility] [id number] [facility] 2018-01-14 13:22:00 2018-01-14 13:54:00 Departed Emergency Room [facility] [id number] [facility] 2017-11-26 14:58:00 2017-11-26 16:48:00 Departed Emergency Room [facility] [id number] [facility] 2017-06-17 18:45:00 2017-06-17 21:23:00 Departed Emergency Room ER ERIAC GARCIAS [facility] [id number] [facility] 2017-05-10 06:46:00 2017-05-10 06:46:00 Registered Surgical Day Care [facility] [id number] [facility] 2017-05-07 13:26:00 2017-05-07 15:25:00 Departed Emergency Room [facility] [id number] [facility] 2017-04-18 07:04:00 2017-04-18 07:04:00 Registered Clinic [facility] [id number] [facility] 2017-04-12 13:37:00 2017-04-12 19:02:00 Departed Emergency Room [facility] [id number] [facility] 2017-03-15 12:00:00 2017-03-15 12:00:00 Registered Clinic [facility] [id number] [facility] 2017-02-13 08:02:00 2017-02-13 08:02:00 Registered Clinic [facility] [id number] [facility] Results Test Description Test Time Test Comments Results Result Comments Source CHEST SINGLE (PORTABLE) 2020-07-09 23:27:00 [place] [address] Patient Name: VICKI ESPARZA MR #: [id number] : 1940 Age/Sex: 79/F Req #: [id number] Adm Physician: Ordered by: ERICA GARCIAS MD Report #: [id number] Location: ER Room/Bed: Procedure: [id number] DX/CHEST SINGLE (PORTABLE) Exam Date: 07/09/20 Exam Time: 2300 REPORT STATUS: Signed EXAMINATION: CHEST SINGLE (PORTABLE) INDICATION: fever COMPARISON: Radiograph dated 07/06/2020. FINDINGS: TUBES and LINES: None. LUNGS AND PLEURA: Hazy bibasilar densities and blunting of the costophrenic angles likely correspond to small pleural effusions as seen on same-day CT. Otherwise, no consolidation. No pneumothorax. HEART AND MEDIASTINUM: The cardiomediastinal silhouette is unremarkable. BONES AND SOFT TISSUES: No acute osseous lesion. Soft tissues are unremarkable. IMPRESSION: New small pleural effusions. No consolidation Signed by: Lesley Leiva MD on 07/09/2020 11:31 PM Dictated By: LESLEY LEIVA MD 30 Transcribed By: TROY on 07/09/202330 COPY TO: ERICA GARCIAS MD CT ABDOMEN/PELVIS W 2020-07-09 23:13:00 [place] [address] Patient Name: VICKI ESPARZA #: [id number] : 1940 Age/Sex: 79/F Req #: [id number] [facility] Physician: Ordered by: ERICA GARCIAS MD Report #: [id number] Location: ER Room/Bed: Procedure: [id number] CT/CT ABDOMEN/PELVIS W Exam Date: 07/09/20 Exam Time: 2244 REPORT STATUS: Signed EXAM: CT Abdomen and Pelvis WITH contrast INDICATION: Y abd pain, fever, diarrhea [id number] Y COMPARISON: TECHNIQUE: Abdomen and pelvis were scanned utilizing a multidetector helical scanner from the lung base to the pubic symphysis after administration of IV contrast. Coronal and sagittal reformations were obtained. Routine protocol was performed. Scan was performed when during portal venous phase. IV CONTRAST: 100 mL of Isovue 370 ORAL CONTRAST: None COMPLICATIONS: None FINDINGS: LOWER THORAX: Small pleural effusions with mild adjacent compressive atelectasis. HEPATOBILIARY: There is intra- and extra- hepatic biliary dilation likely post cholecystectomy reservoir effect. No suspicious hepatic lesions. Portal and hepatic veins are patent. GALLBLADDER: There are cholecystectomy clips. SPLEEN: No splenomegaly. PANCREAS: No focal masses or ductal dilatation. ADRENALS: No adrenal nodules KIDNEYS/URETERS: Status post right nephrectomy with unchanged retroperitoneal densities with internal fat that likely represent infarcted retroperitoneal fat. Minimal stranding about the left kidney, no significant changed. Subcentimeter cortical hypodensities are too small to characterize, likely cysts. No hydronephrosis. GI TRACT: No abnormal distention, wall thickening, or evidence of bowel obstruction. There are diverticula within the colon without evidence of diverticulitis. Appendix is not clearly identified. There is however no fat stranding or adenopathy in the right lower quadrant to suggest appendicitis. Fluid within the sigmoid colon and rectum. PELVIC ORGANS/BLADDER: Unremarkable. LYMPH NODES: No lymphadenopathy. VESSELS: Atherosclerosis without aneurysmal dilatation of the abdominal aorta.. PERITONEUM / RETROPERITONEUM: No free air or fluid. BONES: ORIF of the left femur.. Degenerative changes of the lumbar spine. IMPRESSION: Fluid within the sigmoid colon and rectum compatible with diarrheal illness. Otherwise, no acute abdominopelvic process. Signed by: Lesley Leiva MD on 07/09/2020 11:27 PM Dictated By: LESLEY LEIVA MD 26 Transcribed By: TROY on 07/09/202326 COPY TO: ERICA GARCIAS MD Blood leukocytes automated count (number/volume) 2020-07-08 05:21:00 Test Item White Blood Count (test code = 6690-2) 5.84 4.8-10.8 [facility] (number/volume)2020-07-08 05:21:00* Test Item Value Reference Range Interpretation Comments Red Blood Count (test code = 789-8) 3.88 3.6-5.1 [facility] measurement (moles/volume)2020-07-08 05:21:00* Test Item Value Reference Range Interpretation Comments Hemoglobin (test code = 46078-7) 11.9 12.0-16.0 [facility] hematocrit (volume fraction)2020-07-08 05:21:00* Test Item Value Reference Range Interpretation Comments Hematocrit (test code = 4544-3) 37.2 34.2-44.1 [facility] mean corpuscular [id number] 05:21:00* Test Item Value Reference Range Interpretation Comments Mean Corpuscular Volume (test code = 787-2) 95.9 81-99 [facility] mean corpuscular hemoglobin (mass per erythrocyte)2020-07-08 05:21:00* Test Item Value Reference Range Interpretation Comments Mean Corpuscular Hemoglobin (test code = 785-6) 30.7 28-32 [facility] eryth[facility] mean corpuscular hemoglobin concentration measurement (mass/volume)2020-07-08 05:21:00* Test Item Value Reference Range Interpretation Comments Mean Corpuscular Hemoglobin Concent (test code = 786-4) 32.0 31-35 [facility] CenterRDW [id number]-[id number] 05:21:00* Test Item Value Reference Range Interpretation Comments Red Cell Distribution Width (test code = 45516-4) 13.0 11.7 -14.4 [facility] platelet count (count/volume)2020-07-08 05:21:00* Test Item Value Reference Range Interpretation Comments Platelet Count (test code = 777-3) 165 140-360 [facility] segmented neutrophil count as percentage of total avwdaavtjt1752-01-07 05:21:00* Test Item Value Reference Range Interpretation Comments Neutrophils (%) (Auto) (test code = 92857-2) 77.1 38.7-80.0 [facility] lymphocyte count as percentage ot total [id number] 05:21:00* Test Item Value Reference Range Interpretation Comments Lymphocytes (%) (Auto) (test code = 736-9) 10.6 18.0-39.1 [facility] monocyte count as percentage of total [id number] 05:21:00* Test Item Value Reference Range Interpretation Comments Monocytes (%) (Auto) (test code = 5905-5) 8.7 4.4-11.3 [facility] eosinophil count as percentage of total chsvjitkur1791-64-91 05:21:00* Test Item Value Reference Range Interpretation Comments Eosinophils (%) (Auto) (test code = 713-8) 2.4 0.0-6.0 [facility] basophil count as percentage of total zwkrcemjdg0061-98-08 05:21:00* Test Item Value Reference Range Interpretation Comments Basophils (%) (Auto) (test code = 706-2) 0.7 0.0-1.0 [facility] CenterFluoroscopic procedure less than one hour attxhqei3420-16-98 05:21:00* Test Item Value Reference Range Interpretation Comments IM GRANULOCYTES % (test code = IM GRANULOCYTES %) 0.5 0.0- 1.0 [facility] neutrophil count 2020-07-08 05:21:00* Test Item Value Reference Range Interpretation Comments Neutrophils # (Auto) (test code = 751-8) 4.5 2.1-6.9 [facility] lymphocytes count (number/volume) 2020-07-08 05:21:00* Test Item Value Reference Range Interpretation Comments Lymphocytes # (Auto) (test code = 09891-5) 0.6 1.0-3.2 [facility] monocytes automated count (number/volume)2020-07-08 05:21:00* Test Item Value Reference Range Interpretation Comments Monocytes # (Auto) (test code = 742-7) 0.5 0.2-0.8 [facility] eosinophil count 2020-07-08 05:21:00* Test Item Value Reference Range Interpretation Comments Eosinophils # (Auto) (test code = 711-2) 0.1 0.0-0.4 [facility] CenterAutom[facility] blood basophil count (count/volume)2020-07-08 05:21:00* Test Item Value Reference Range Interpretation Comments Basophils # (Auto) (test code = 704-7) 0.0 0.0-0.1 [facility] CenterFluoroscopic procedure less than one hour aiirtwso3402-04-20 05:21:00* Test Item Value Reference Range Interpretation Comments Absolute Immature Granulocyte (auto (idania t code = Absolute Immature Granulocyte (auto) 0.03 0-0.1 [facility] sodium measurement (moles/volume)2020-07-08 05:21:00* Test Item Value Reference Range Interpretation Comments Sodium Level (test code = 2951-2) 141 136-145 [facility] potassium measurement (moles/volume)2020-07-08 05:21:00* Test Item Value Reference Range Interpretation Comments Potassium Level (test code = 2823-3) 3.8 3.5-5.1 [facility] chloride measurement (moles/volume)2020-07-08 05:21:00* Test Item Value Reference Range Interpretation Comments Chloride Level (test code = 2075-0) 114 98-107 [facility] carbon dioxide, total measurement (moles/volume)2020-07-08 05:21:00* Test Item Value Reference Range Interpretation Comments Carbon Dioxide Level (test code = 2028-9) 19 22-29 [facility] anion [id number] 05:21:00* Test Item Value Reference Range Interpretation Comments Anion Gap (test code = 93607-9) 11.8 8-16 [facility] urea nitrogen measurement (mass/volume)2020-07-08 05:21:00* Test Item Value Reference Range Interpretation Comments Blood Urea Nitrogen (test code = 3094-0) 19 7-26 [facility] creatinine measurement (mass/volume)2020-07-08 05:21:00* Test Item Value Reference Range Interpretation Comments Creatinine (test code = 2160-0) 1.05 0.57-1.11 [facility] urea nitrogen/creatinine mass qorms1753-48-43 05:21:00* Test Item Value Reference Range Interpretation Comments BUN/Creatinine Ratio (test code = 3097-3) 18 6-25 [facility] CenterEstimated glomerular filtration rate (GFR) fjlxonmkztqzd9798-70-32 05:21:00* Test Item Value Reference Range Interpretation Comments Estimat Glomerular Filtration Rate (test code = 027961534) 51 >60 Ranges were taken from the National Kidney Disease Education Program and the [facility] literature.Reference ranges:60 or greater: Rrmtqd44-35 ( for 3 consecutive months): Chronic kidney disease 15 or less: Kidney failureParis Regional Medical CenterGlucose xedjwknovzn7504-12-49 05:21:00* Test Item Value Reference Range Interpretation Comments Glucose Level (test code = QMA9699) 77 74-118 [facility] plasma calcium measurement (mass/volume)2020-07-08 05:21:00* Test Item Value Reference Range Interpretation Comments Calcium Level (test code = 77485-2) 7.7 8.4-10.2 [facility] plasma total bilirubin measurement (mass/volume)2020-07-08 05:21:00* Test Item Value Reference Range Interpretation Comments Total Bilirubin (test code = 1975-2) 0.3 0.2-1.2 [facility] CenterFluoroscopic procedure less than one hour qapgpgzt8553-56-82 05:21:00* Test Item Value Reference Range Interpretation Comments Aspartate Amino Transf (AST/SGOT) (test code = Aspartate Amino Transf (AST/SGOT)) 61 5-34 [facility] Arlingtoner[facility] or plasma alanine aminotransferase measurement (enzymatic activity/volume)2020-07-08 05:21:00* Test Item Value Reference Range Interpretation Comments Alanine Aminotransferase (ALT/SGPT) (test code = 1742-6) 104 0-55 [facility] Arlington[facility] or plasma protein measurement (mass/volume)2020-07-08 05:21:00* Test Item Value Reference Range Interpretation Comments Total Protein (test code = 2885-2) 4.4 6.5-8.1 [facility] plasma albumin measurement (mass/volume)2020-07-08 05:21:00* Test Item Value Reference Range Interpretation Comments Albumin (test code = 1751-7) 1.9 3.5-5.0 [facility] CenterPlasma globulin measurement (mass/volume) 2020-07-08 05:21:00* Test Item Value Reference Range Interpretation Comments Globulin (test code = 96177-2) 2.5 2.3-3.5 [facility] or plasma albumin/globulin mass dzmxv9614-06-10 05:21:00* Test Item Value Reference Range Interpretation Comments Albumin/Globulin Ratio (test code = 1759-0) 0.8 0.8-2.0 [facility] Arlington[facility] or plasma alkaline phosphatase measurement (enzymatic activity/volume)2020-07-08 05:21:00* Test Item Value Reference Range Interpretation Comments Alkaline Phosphatase (test code = 6768-6) 131 40-150 [facility] or plasma creatine kinase measurement (enzymatic activity/volume)2020-07-08 05:21:00* Test Item Value Reference Range Interpretation Comments Creatine Kinase (test code = 2157-6) 24 29-168 [facility] or plasma creatine kinase MB measurement (mass/volume)2020-07-08 05:21:00* Test Item Value Reference Range Interpretation Comments Creatine Kinase MB (test code = 51381-9) 1.50 0-5.0 [facility] CenterTroponin I measurement by highly sensitive enzyme yzofipqcwkw3482-86-51 05:21:00* Test Item Value Reference Range Interpretation Comments Troponin I (test code = 08782-5) < 0.001 0-0.300 [facility] CenterCHEST SINGLE (PORTABLE)2020-07-06 08:32:00 [place] [address] Patient Name: VICKI ESPARZA MR #: [id number] : 1940 Age/Sex: 79/F Req #: [id number] Adm Physician: ROB VEGA MD Ordered by: STEF INMAN DO Report #: [id number] Location: [facility] Room/Bed: [facility] Procedure: [id number] DX/CHEST SI NGLE (PORTABLE) Exam Date: 07/06/20 Exam Time: 719 REPORT STATUS: Signed EXAMINATIO N: CHEST SINGLE [...] TROY on 07/06/20837 COPY TO: STEF INMAN DO Urine color gkpbauzwvvhcy7300-59-09 06:02:00* Test Item Value Reference Range Interpretation Comments Urine Color (test code = 5778-6) YELLOW YELLOW [facility] CenterUrine jdsgvzu8355-54-01 06:02:00* Test Item Value Reference Range Interpretation Comments Urine Clarity (test code = 05971-7) CLEAR CLEAR [facility] Arlingtonpecific gravity of Urine by Test strip 2020-07-06 06:02:00* Test Item Value Reference Range Interpretation Comments Urine Specific [place] (test code = 5811-5) 1.020 1.010-1.02 5 [facility] CenterUrine pH measurement by automated test gsuoe5524-63-31 06:02:00* Test Item Value Reference Range Interpretation Comments Urine pH (test code = 27302-4) 5.5 5-7 [facility] CenterUrine leukocyte esterase detection by ovhcflhl5093-93-66 06:02:00* Test Item Value Reference Range Interpretation Comments Urine Leukocyte Esterase (test code = 5799-2) NEGATIVE NEGATIVE [facility] CenterUrine nitrite smjjgemix6268-74-93 06:02:00* Test Item Value Reference Range Interpretation Comments Urine Nitrite (test code = 48674-6) NEGATIVE NEGATIVE [facility] CenterUrine protein measurement by test strip (mass/volume)2020-07-06 06:02:00* Test Item Value Reference Range Interpretation Comments Urine Protein (test code = 5804-0) NEGATIVE NEGATIVE [facility] CenterUrine glucose bowonsehn1490-72-07 06:02:00* Test Item Value Reference Range Interpretation Comments Urine Glucose (UA) (test code = 2349-9) NEGATIVE NEGATIVE [facility] CenterUrine ketones detection by automated test syxci5873-98-94 06:02:00* Test Item Value Reference Range Interpretation Comments Urine Ketones (test code = 49340-1) NEGATIVE NEGATIVE [facility] CenterUrine urobilinogen measurement by test strip (mass/volume)2020-07-06 06:02:00* Test Item Value Reference Range Interpretation Comments Urine Urobilinogen (test code = 84268-2) 0.2 0.2-1 [facility] CenterUrine total bilirubin measurement (mass/volume)2020-07-06 06:02:00* Test Item Value Reference Range Interpretation Comments Urine Bilirubin (test code = 1978-6) NEGATIVE NEGATIVE [facility] CenterUrine erythrocytes dggvusuik5390-93-40 06:02:00* Test Item Value Reference Range Interpretation Comments Urine Blood (test code = 59823-9) NEGATIVE NEGATIVE [facility] CenterAutomated urine sediment leukocyte count by microscopy (number/high power field)2020-07-06 06:02:00* Test Item Value Reference Range Interpretation Comments Urine WBC (test code = 5821-4) 0-5 0-5 [facility] CenterErythrocytes detection in urine sediment by light rieioeuvcm3316-96-34 06:02:00* Test Item Value Reference Range Interpretation Comments Urine RBC (test code = 30094-7) 0-5 0-5 [facility] CenterBacteria detection in urine sediment by light bpwujhsmdf4825-44-29 06:02:00* Test Item Value Reference Range Interpretation Comments Urine Bacteria (test code = 53457-3) RARE NONE [facility] CenterEpithelial cells detection in urine sediment by light sosqdejtff1000-30-56 06:02:00* Test Item Value Reference Range Interpretation Comments Urine Epithelial Cells (test code = 32126-6) FEW NONE [facility] CenterFluoroscopic procedure less than one hour qwbdjckg5028-39-87 06:02:00* Test Item Value Reference Range Interpretation [...] under 564(g) of the ACT.Testing performed by [facility] [place] [id number] Regional Medical CenterArterial blood pH rtjdjcpectk7239-93-90 05:55:00* Test Item Value Reference Range Interpretation Comments Arterial Blood pH (test code = 2744-1) 7.39 7.35-7.45 [facility] CenterpCO2 MykA8847-00-60 05:55:00* Test Item Value Reference Range Interpretation Comments Arterial Blood Partial Pressure CO2 (test code = 2019-05) 35 35-45 [facility] CenterpCO2 VceJ0415-59-79 05:55:00* Test Item Value Reference Range Interpretation Comments Arterial Blood Partial Pressure O2 (test code = 2019-05) 74 80-105 [facility] CenterArterial blood bicarbonate measurement (moles/volume)2020-07-06 05:55:00* Test Item Value Reference Range Interpretation Comments Arterial Blood HCO3 (test code = 1960-4) 21 22- [facility] CenterArterial cord blood carbon dioxide, total measurement by calculation (moles/volume)2020-07-06 05:55:00* Test Item Value Reference Range Interpretation Comments Arterial Blood Total CO2 (test code = 15585-0) 22 [facility] CenterArterial blood base excess by calculation 2020-07-06 05:55:00* Test Item Value Reference Range Interpretation Comments Arterial Blood Base Excess (test code = 1925-7) -4.0 -2-3 [facility] CenterArterial blood oxygen saturation hwkykzdzvqq0424-22-01 05:55:00* Test Item Value Reference Range Interpretation Comments Arterial Blood Oxygen Saturation (test code = 2708-6) 95.0 95-98 [facility] CenterFluoroscopic procedure less than one hour ejgltyea8582-10-93 05:55:00* Test Item Value Reference Range Interpretation Comments FiO2 (test code = FiO2) 21 [facility] CenterFluoroscopic procedure less than one hour quwvcjqe8695-12-37 05:32:00* Test Item Value Reference Range Interpretation Comments Lactic Acid Level (test code = Lactic Acid Level) 1.8 0.5- 2.0 [facility] CenterBNP Nfa-wFal1590-61-05 05:30:00* Test Item Value Reference Range Interpretation Comments B-Type Natriuretic Peptide (test code = 36977-9) 86.1 0-100 [facility] Arlingtoner[facility] or plasma lipase measurement (enzymatic activity/volume)2020-07-06 05:30:00* Test Item Value Reference Range Interpretation Comments Lipase (test code = 3040-3) 92 8-78 [facility] CenterBlood aqpvyki7480-60-60 05:30:00* Test Item Value Reference Range Interpretation Comments Blood Culture (test code = 38000551) NO GROWTH AFTER 72 HOURS [facility] CenterCT CERVICAL SPINE RY3237-54-02 11:39:00 [facility] [address] [place] [address] Patient Name: VICKI ESPARZA MR #: [id number] : 1940 Age/Sex: 79/F Req #: [id number] Adm Physician: Ordered by: JIM CORDERO MD Report #: [id number] Location: [facility]/Bed: Procedure: [id number] CT/CT CERV ICAL SPINE WO Exam Date: 07/05/20 Exam Time: 0953 REPORT STATUS: Signed Examination: CT CERVICAL SPINE WO CONTRAST HISTORY: N HEADACHE ON ASA/PLAVIX, NECK NAREN N [id number] 09. COMPARISON:March 26, 2018 and April 02, 2020 [...] prior dated April 02, 2020. Signed by: Dr. Christi Meléndez M.D. o fredrick 07/05/2020 11:43 AM Dictated By: CHRISTI MCINTOSH MD Electronic ally Signed By: CHRISTI MCINTOSH MD on 07/05/20 1143 Transcribed By: RONNA MAK on 07/05/20 1143 COPY TO: JIM CORDERO MD CT BRAIN WO 2020-07-05 11:03:00 [place] [address] Patient Name: VICKI ESPARZA MR #: [id number] : 1940 Age/Sex: 79/F Req #: [id number] Adm Physician: Ordered by: JIM CORDERO MD Report #: [id number] Location: ER Room/Bed: Procedure: [id number] CT/CT BRAI N WO Exam Date: 07/05/20 Exam Time: 952 REPORT STATUS: Signed Examination: CT BRAIN WO History: N HEADACHE ON ASA/PLAVIX, NECK PAIN [id number] Compari son studies:Head CT dated March 26, [...] 38 AM Dictated By: CHRISTI MCINTOSH MD 113 Transcribed By: TROY on 1138 COPY TO: JIM CORDERO MD CHEST SINGLE (PORTABLE) 2020-07-05 10:08:00 [place] [address] Patient Name: VICKI ESPARZA MR #: [id number] : 1940 Age/Sex: 79/F Req #: [id number] Adm Physician: Ordered by: JIM CORDERO MD Report #: [id number] Location: ER Room/Bed: Procedure: [id number] DX/CHEST S JAYCE (PORTABLE) Exam Date: 07/05/20 [...] Count (test code = 6690-2) 7.28 4.8-10.8 [facility] CenterBlood erythrocytes automated count (number/volume)2020-07-05 09:25:00* Test Item Value Reference Range Interpretation Comments Red Blood Count (test code = 789-8) 5.06 3.6-5.1 [facility] CenterBlood hemoglobin measurement (moles/volume)2020-07-05 09:25:00* Test Item Value Reference Range Interpretation Comments Hemoglobin (test code = 38308-5) 15.1 12.0-16.0 [facility] CenterAutomated blood hematocrit (volume fraction)2020-07-05 09:25:00* Test Item Value Reference Range Interpretation Comments Hematocrit (test code = 4544-3) 47.4 34.2-44.1 [facility] CenterAutomated erythrocyte mean corpuscular cxcpqi8647-09-71 09:25:00* Test Item Value Reference Range Interpretation Comments Mean Corpuscular Volume (test code = 787-2) 93.7 81-99 [facility] CenterAutomated erythrocyte mean corpuscular hemoglobin (mass per erythrocyte)2020-07-05 09:25:00* Test Item Value Reference Range Interpretation Comments Mean Corpuscular Hemoglobin (test code = 785-6) 29.8 28-32 [facility] CenterAutomated erythrocyte mean corpuscular hemoglobin concentration measurement (mass/volume)2020-07-05 09:25:00* Test Item Value Reference Range Interpretation Comments Mean Corpuscular Hemoglobin Concent (test code = 786-4) 31.9 31-35 [facility] CenterRDW MdyWj-Lbw0845-41-04 09:25:00* Test Item Value Reference Range Interpretation Comments Red Cell Distribution Width (test code = 10062-9) 13.1 11.7 -14.4 [facility] CenterAutomated blood platelet count (count/volume)2020-07-05 09:25:00* Test Item Value Reference Range Interpretation Comments Platelet Count (test code = 777-3) 283 140-360 [facility] CenterAutomated blood segmented neutrophil count as percentage of total tlfabaaskz1991-51-37 09:25:00* Test Item Value Reference Range Interpretation Comments Neutrophils (%) (Auto) (test code = 33641-3) 77.4 38.7-80.0 [facility] CenterAutomated blood lymphocyte count as percentage ot total giabjjqidi6276-94-63 09:25:00* Test Item Value Reference Range Interpretation Comments Lymphocytes (%) (Auto) (test code = 736-9) 13.2 18.0-39.1 [facility] CenterAutomated blood monocyte count as percentage of total vzitxhelja4711-16-14 09:25:00* Test Item Value Reference Range Interpretation Comments Monocytes (%) (Auto) (test code = 5905-5) 7.8 4.4-11.3 [facility] CenterAutomated blood eosinophil count as percentage of total byietnileb6760-68-16 09:25:00* Test Item Value Reference Range Interpretation Comments Eosinophils (%) (Auto) (test code = 713-8) 0.4 0.0-6.0 [facility] CenterAutomated blood basophil count as percentage of total bowtjgnnxt6481-09-46 09:25:00* Test Item Value Reference Range Interpretation Comments Basophils (%) (Auto) (test code = 706-2) 0.8 0.0-1.0 [facility] CenterFluoroscopic procedure less than one hour kygtvghi6380-13-99 09:25:00* Test Item Value Reference Range Interpretation Comments IM GRANULOCYTES % (test code = IM GRANULOCYTES %) 0.4 0.0- 1.0 [facility] CenterAutomated blood neutrophil count 2020-07-05 09:25:00* Test Item Value Reference Range Interpretation Comments Neutrophils # (Auto) (test code = 751-8) 5.6 2.1-6.9 [facility] CenterBlood lymphocytes count (number/volume) 2020-07-05 09:25:00* Test Item Value Reference Range Interpretation Comments Lymphocytes # (Auto) (test code = 11893-0) 1.0 1.0-3.2 [facility] CenterBlood monocytes automated count (number/volume)2020-07-05 09:25:00* Test Item Value Reference Range Interpretation Comments Monocytes # (Auto) (test code = 742-7) 0.6 0.2-0.8 [facility] CenterAutomated blood eosinophil count 2020-07-05 09:25:00* Test Item Value Reference Range Interpretation Comments Eosinophils # (Auto) (test code = 711-2) 0.0 0.0-0.4 [facility] CenterAutomated blood basophil count (count/volume)2020-07-05 09:25:00* Test Item Value Reference Range Interpretation Comments Basophils # (Auto) (test code = 704-7) 0.1 0.0-0.1 [facility] CenterFluoroscopic procedure less than one hour izgrejub7423-13-92 09:25:00* Test Item Value Reference Range Interpretation Comments Absolute Immature Granulocyte (auto (idania t code = Absolute Immature Granulocyte (auto) 0.03 0-0.1 [facility] CenterProthrombin time (PT) in platelet poor plasma by coagulation mvghe3939-16-95 09:25:00* Test Item Value Reference Range Interpretation Comments Prothrombin Time (test code = 5902-2) 12.0 11.9-14.5 [facility] CenterINR in Platelet poor plasma by Coagulation frkvu2403-77-83 09:25:00* Test Item Value Reference Range Interpretation Comments Prothromb Time International Ratio (test code = 6301-6) 0.85 Oral Anticoagulant Therapy INR Values:1. Low Intensity Therapy 1.5 - 2.02 . Moderate Intensity Therapy 2.0 - 3.03. High Intensity Therapy(1) 2.5 - 3. 54. High Intensity Therapy(2) 3.0 - 4.05. Panic Value INR > 5.0 [facility] CenterActivated partial thromboplastin time (aPTT) in platelet poor plasma by coagulation fzrsu1146-85-69 09:25:00* Test Item Value Reference Range Interpretation Comments Activated Partial Thromboplast Time (test code = 59891-6) 25.6 23.8-35.5 [facility] CenterUrine color wpqqftrxibjhg7263-32-38 09:25:00* Test Item Value Reference Range Interpretation Comments Urine Color (test code = 5778-6) YELLOW YELLOW [facility] CenterUrine ivcyvzp6648-64-14 09:25:00* Test Item Value Reference Range Interpretation Comments Urine Clarity (test code = 60783-4) CLEAR CLEAR [facility] Arlingtonpecific gravity of Urine by Test strip 2020-07-05 09:25:00* Test Item Value Reference Range Interpretation Comments Urine Specific [place] (test code = 5811-5) >=1.030 1.010-1.02 5 [facility] CenterUrine pH measurement by automated test caabk6967-08-18 09:25:00* Test Item Value Reference Range Interpretation Comments Urine pH (test code = 74766-0) 5.5 5-7 [facility] CenterUrine leukocyte esterase detection by zdepqydc3450-26-04 09:25:00* Test Item Value Reference Range Interpretation Comments Urine Leukocyte Esterase (test code = 5799-2) SMALL NEGATIVE [facility] CenterUrine nitrite sakpdqknv0180-27-17 09:25:00* Test Item Value Reference Range Interpretation Comments Urine Nitrite (test code = 33881-9) NEGATIVE NEGATIVE [facility] CenterUrine protein measurement by test strip (mass/volume)2020-07-05 09:25:00* Test Item Value Reference Range Interpretation Comments Urine Protein (test code = 5804-0) 2+ NEGATIVE [facility] CenterUrine glucose ffeandqgv6963-41-02 09:25:00* Test Item Value Reference Range Interpretation Comments Urine Glucose (UA) (test code = 2349-9) NEGATIVE NEGATIVE [facility] CenterUrine ketones detection by automated test zbmuj4350-61-54 09:25:00* Test Item Value Reference Range Interpretation Comments Urine Ketones (test code = 57007-4) TRACE NEGATIVE [facility] CenterUrine urobilinogen measurement by test strip (mass/volume)2020-07-05 09:25:00* Test Item Value Reference Range Interpretation Comments Urine Urobilinogen (test code = 16466-2) 0.2 0.2-1 [facility] CenterUrine total bilirubin measurement (mass/volume)2020-07-05 09:25:00* Test Item Value Reference Range Interpretation Comments Urine Bilirubin (test code = 1978-6) NEGATIVE NEGATIVE [facility] CenterUrine erythrocytes tyzxnhjkh5393-30-59 09:25:00* Test Item Value Reference Range Interpretation Comments Urine Blood (test code = 99151-3) NEGATIVE NEGATIVE [facility] CenterAutomated urine sediment leukocyte count by microscopy (number/high power field)2020-07-05 09:25:00* Test Item Value Reference Range Interpretation Comments Urine WBC (test code = 5821-4) >50 0-5 [facility] CenterErythrocytes detection in urine sediment by light hunfmclrec9884-39-32 09:25:00* Test Item Value Reference Range Interpretation Comments Urine RBC (test code = 59594-2) 6-10 0-5 [facility] CenterBacteria detection in urine sediment by light hfleviaacl3034-13-08 09:25:00* Test Item Value Reference Range Interpretation Comments Urine Bacteria (test code = 40526-6) MANY NONE [facility] CenterEpithelial cells detection in urine sediment by light svvndbbnen2148-05-75 09:25:00* Test Item Value Reference Range Interpretation Comments Urine Epithelial Cells (test code = 92662-0) MODERATE NONE [facility] CenterHyaline casts detection in urine sediment by light fcogvbmqhm8174-15-97 09:25:00* Test Item Value Reference Range Interpretation Comments Urine Hyaline Casts (test code = 91914-3) 2-5 0-1 [facility] CenterMucus detection in urine sediment by light rvzdkokirs3804-50-76 09:25:00* Test Item Value Reference Range Interpretation Comments Urine Mucus (test code = 8247-9) FEW RARE [facility] Arlingtonerum or plasma sodium measurement (moles/volume)2020-07-05 09:25:00* Test Item Value Reference Range Interpretation Comments Sodium Level (test code = 2951-2) 141 136-145 [facility] Arlingtonerum or plasma potassium measurement (moles/volume)2020-07-05 09:25:00* Test Item Value Reference Range Interpretation Comments Potassium Level (test code = 2823-3) 3.7 3.5-5.1 [facility] Arlingtonerum or plasma chloride measurement (moles/volume)2020-07-05 09:25:00* Test Item Value Reference Range Interpretation Comments Chloride Level (test code = 2075-0) 104 98-107 [facility] Arlingtonerum or plasma carbon dioxide, total measurement (moles/volume)2020-07-05 09:25:00* Test Item Value Reference Range Interpretation Comments Carbon Dioxide Level (test code = 2028-9) 25 22-29 [facility] Arlingtonerum or plasma anion diq1562-97-07 09:25:00* Test Item Value Reference Range Interpretation Comments Anion Gap (test code = 62895-2) 15.7 8-16 [facility] Arlingtonerum or plasma urea nitrogen measurement (mass/volume)2020-07-05 09:25:00* Test Item Value Reference Range Interpretation Comments Blood Urea Nitrogen (test code = 3094-0) 19 7-26 [facility] Arlingtonerum or plasma creatinine measurement (mass/volume)2020-07-05 09:25:00* Test Item Value Reference Range Interpretation Comments Creatinine (test code = 2160-0) 1.18 0.57-1.11 [facility] Arlingtonerum or plasma urea nitrogen/creatinine mass kfuwq2679-63-05 09:25:00* Test Item Value Reference Range Interpretation Comments BUN/Creatinine Ratio (test code = 3097-3) 16 6-25 [facility] CenterEstimated glomerular filtration rate (GFR) cswzuhjkbcmbs7813-25-01 09:25:00* Test Item Value Reference Range Interpretation Comments Estimat Glomerular Filtration Rate (test code = 457122477) 44 >60 Ranges were taken from the National Kidney Disease Education Program and the [facility] literature.Reference ranges:60 or greater: Zwbkoc07-53 ( for 3 consecutive months): Chronic kidney disease 15 or less: Kidney failureParis Regional Medical CenterGlucose pdowupelift6455-61-70 09:25:00* Test Item Value Reference Range Interpretation Comments Glucose Level (test code = AHU5231) 116 74-118 [facility] Arlingtonerum or plasma calcium measurement (mass/volume)2020-07-05 09:25:00* Test Item Value Reference Range Interpretation Comments Calcium Level (test code = 20444-8) 10.0 8.4-10.2 [facility] Arlingtonerum or plasma magnesium measurement (mass/volume)2020-07-05 09:25:00* Test Item Value Reference Range Interpretation Comments Magnesium Level (test code = 28123-3) 1.8 1.3-2.1 [facility] Arlingtonerum or plasma total bilirubin measurement (mass/volume)2020-07-05 09:25:00* Test Item Value Reference Range Interpretation Comments Total Bilirubin (test code = 1975-2) 0.3 0.2-1.2 [facility] CenterFluoroscopic procedure less than one hour ruclfdfq6610-21-81 09:25:00* Test Item Value Reference Range Interpretation Comments Aspartate Amino Transf (AST/SGOT) (test code = Aspartate Amino Transf (AST/SGOT)) 25 5-34 [facility] Arlingtonerum or plasma alanine aminotransferase measurement (enzymatic activity/volume)2020-07-05 09:25:00* Test Item Value Reference Range Interpretation Comments Alanine Aminotransferase (ALT/SGPT) (test code = 1742-6) 24 0-55 [facility] Arlingtonerum or plasma protein measurement (mass/volume)2020-07-05 09:25:00* Test Item Value Reference Range Interpretation Comments Total Protein (test code = 2885-2) 6.9 6.5-8.1 [facility] Arlingtonerum or plasma albumin measurement (mass/volume)2020-07-05 09:25:00* Test Item Value Reference Range Interpretation Comments Albumin (test code = 1751-7) 3.4 3.5-5.0 [facility] CenterPlasma globulin measurement (mass/volume) 2020-07-05 09:25:00* Test Item Value Reference Range Interpretation Comments Globulin (test code = 76144-7) 3.5 2.3-3.5 [facility] albumin/globulin mass dvhnm8973-97-22 09:25:00* Test Item Value Reference Range Interpretation Comments Albumin/Globulin Ratio (test code = 1759-0) 1.0 0.8-2.0 [facility] plasma alkaline phosphatase measurement (enzymatic activity/volume)2020-07-05 09:25:00* Test Item Value Reference Range Interpretation Comments Alkaline Phosphatase (test code = 6768-6) 86 40-150 [facility] plasma creatine kinase measurement (enzymatic activity/volume)2020-07-05 09:25:00* Test Item Value Reference Range Interpretation Comments Creatine Kinase (test code = 2157-6) 48 29-168 [facility] plasma creatine kinase MB measurement (mass/volume)2020-07-05 09:25:00* Test Item Value Reference Range Interpretation Comments Creatine Kinase MB (test code = 38153-2) 1.30 0-5.0 [facility] CenterTroponin I measurement by highly sensitive enzyme wyspamqouxz6578-14-12 09:25:00* Test Item Value Reference Range Interpretation Comments Troponin I (test code = 42434-2) 0.016 0-0.300 [facility] CenterProthrombin time (PT) in platelet poor plasma by coagulation vrmsr3187-06-11 09:25:00* Test Item Value Reference Range Interpretation Comments Prothrombin Time (test code = 5902-2) 12.0 11.9-14.5 [facility] CenterINR in Platelet poor plasma by Coagulation ahojr4724-26-61 09:25:00* Test Item Value Reference Range Interpretation Comments Prothromb Time International Ratio (test code = 6301-6) 0.85 Oral Anticoagulant Therapy INR Values:1. Low Intensity Therapy 1.5 - 2.02 . Moderate Intensity Therapy 2.0 - 3.03. High Intensity Therapy(1) 2.5 - 3. 54. High Intensity Therapy(2) 3.0 - 4.05. Panic Value INR > 5.0 [facility] CenterActivated partial thromboplastin time (aPTT) in platelet poor plasma by coagulation wvcvf6427-98-69 09:25:00* Test Item Value Reference Range Interpretation Comments Activated Partial Thromboplast Time (test code = 73179-4) 25.6 23.8-35.5 [facility] CenterHyaline casts detection in urine sediment by light xetnkdikvr8328-81-89 09:25:00* Test Item Value Reference Range Interpretation Comments Urine Hyaline Casts (test code = 01425-1) 2-5 0-1 [facility] CenterMucus detection in urine sediment by light lbmllqhpop3821-10-70 09:25:00* Test Item Value Reference Range Interpretation Comments Urine Mucus (test code = 8247-9) FEW RARE [facility] plasma magnesium measurement (mass/volume)2020-07-05 09:25:00* Test Item Value Reference Range Interpretation Comments Magnesium Level (test code = 03072-0) 1.8 1.3-2.1 [facility] CenterBacterial urine yuhmuof2447-61-42 09:25:00* Test Item Value Reference Range Interpretation Comments Urine Culture (test code = 630-4) ESCHERICHIA COLI [facility] CenterFluoroscopic procedure less than one hour fldkiocj2562-57-60 17:20:00* Test Item Value Reference Range Interpretation [...] Testing methodology is real-time RT-PCR utilizing the [facility] SARS-CoV-2 ki t distributed by [employer].Test results must be correlated with clinical presentation [...] complexity test s.Testing performed by [facility] [address] [place] [address] [phone] Director: Elkin Camara M.D.CLIA # [id number] 3CALLED TO JOHN IN OR [facility] 04/20/20 [facility] SINGLE (PORTABLE)2020-04-17 11:12:00 [place] [address] Patient Name: VICKI ESPARZA MR #: [id number] : 1940 Age/Sex: 79/F Req #: [id number] Adm Physician: ROB VEGA MD Ordered by: NICOLE THOMPSON MD Report #: [id number] Location: [facility] Room/Bed: [place] [address] Procedure: [id number] DX/CHEST S JAYCE (PORTABLE) Exam Date: 04/17/20 Exam Time: 1035 REPORT STATUS: Signed EXAM: CH EST SINGLE (PORTABLE) DATE: 04/17/2020 10:35 AM [...] 11:14 AM Dictated By: FLO CAVAZOS MD 111 Transcribed By: TROY on 04/17/20 1114 COPY TO: NICOLE THOMPSON MD MRI BRAIN JU0608-07-32 15:35:00 [place] [address] Patient Name: VICKI ESPARZA MR #: [id number] : 1940 Age/Sex: 79/F Req #: [id number] Adm Physician: ROB VEGA MD Ordered by: ROB VEGA MD Report #: [id number] Location: [facility] m/Bed: [facility] 175-1 Procedure: [id number] MRI/MRI BRA IN WO Exam Date: Exam [...] recent exa ms but have progressed since 2015. Signed by: Dr. Hilario Guerrero M.D. on 04/16/2020 3:44 PM Dictated By: HILARIO GUERRERO MD Electronically Sign ed By: HILARIO GUERRERO MD on 04/16/20 1544 Transcribed By: TROY on 04/16/20 154 COPY TO: ROB VEGA MD CTA UTRR2283-67-45 12:37:[address] [place], [place] [address] Patient Name: VICKI ESPARZA MR #: [id number] : 1940 Age/Sex: 79/F Req #: [id number] Adm Physician: ROB VEGA MD Ordered by: ROB VEGA MD Report #: [id number] Location: [facility]/Bed: [place] [address] Procedure: [id number] CT/CTA NECK Exam Date: 04/14/20 Exam Time: 1200 REPORT STATUS: Signed Examination: Cervical CT Angiogram with Contrast Clinical indication:Carotid stenosis as seen on Dopple r examination. Comparison studies:None Technique: Axial images were obtained from the thoracic inlet. Coronal and sagittal images reconstructed from the axial data. Intravenous contrast: 100 cc of Isovue-370. Computer ge nerated maximum intensity projection and 3D images [...] of 1.4 cm. Vertebral arteries: P atent. [place]: The left posterior commuting artery [...] 1:38 PM Dictated By: ADDISON MCINTOSH MD 1338 Transcribed By: TROY on 04/14/20 1338 COPY TO: ROB MARINELLI MD Capillary blood glucose measurement by glucometer (mass/volume)2020-04-13 07:35:00* Test Item Value Reference Range Interpretation Comments Bedside Glucose (test code = 44296-9) 97 70-120 Meter ID: [id number] Regional Medical CenterCapillary blood glucose measurement by glucometer (mass/volume)2020-04-13 07:35:00* Test Item Value Reference Range Interpretation Comments Bedside Glucose (test code = 12667-4) 97 70-120 Meter ID: [id number] Hospital at Arlingtonerum or plasma triglyceride measurement (mass/volume)2020-04-13 05:00:00* Test Item Value Reference Range Interpretation Comments Triglycerides Level (test code = 2571-8) 154 0-149 [facility] Arlingtoner[facility] or plasma cholesterol measurement (mass/volume)2020-04-13 05:00:00* Test Item Value Reference Range Interpretation Comments Cholesterol Level (test code = 2093-3) 184 0-199 Less than 200 mg/dL Low Wmya740 - 239 mg/dL Borderline Afdv371 m g/dl and greater High Risk [facility] Arlingtoner[facility] or plasma cholesterol in LDL measurement (mass/volume) 2020-04-13 05:00:00* Test Item Value Reference Range Interpretation Comments LDL Cholesterol (test code = 2089-1) 98 60-130 [facility] Arlingtonerum or plasma cholesterol in HDL measurement (mass/volume)2020-04-13 05:00:00* Test Item Value Reference Range Interpretation Comments HDL Cholesterol (test code = 2085-9) 55 40-60 [facility] Arlingtonerum or plasma total cholesterol/cholesterol in HDL mass djpvp5427-71-40 05:00:00* Test Item Value Reference Range Interpretation Comments Cholesterol/HDL Ratio (test code = 9830-1) 3.3 3.0-3.6 [facility] Arlingtonerum or plasma triglyceride measurement (mass/volume)2020-04-13 05:00:00* Test Item Value Reference Range Interpretation Comments Triglycerides Level (test code = 2571-8) 154 0-149 [facility] Arlingtonerum or plasma cholesterol measurement (mass/volume)2020-04-13 05:00:00* Test Item Value Reference Range Interpretation Comments Cholesterol Level (test code = 2093-3) 184 0-199 Less than 200 mg/dL Low Mllq918 - 239 mg/dL Borderline Dxfh148 m g/dl and greater High Risk [facility] Arlingtonerum or plasma cholesterol in LDL measurement (mass/volume) 2020-04-13 05:00:00* Test Item Value Reference Range Interpretation Comments LDL Cholesterol (test code = 2089-1) 98 60-130 [facility] Arlingtonerum or plasma cholesterol in HDL measurement (mass/volume)2020-04-13 05:00:00* Test Item Value Reference Range Interpretation Comments HDL Cholesterol (test code = 2085-9) 55 40-60 [facility] Arlingtonerum or plasma total cholesterol/cholesterol in HDL mass qaurw3347-99-72 05:00:00* Test Item Value Reference Range Interpretation Comments Cholesterol/HDL Ratio (test code = 9830-1) 3.3 3.0-3.6 [facility] JM7578-21-91 16:10:00 [facility] [address] [place] [address] Patient Name: VICKI ESPARZA MR #: [id number] : 1940 Age/Sex: 79/F Req #: [id number] Adm Physician: Ordered by: JIM CORDERO MD Report #: [id number] Location: ER om/Bed: Procedure: [id number] CT/CT CERV ICAL SPINE WO Exam Date: [...] tissues: Atherosclerotic calcification of the bilateral carotid griesl pam. Degenerative changes: No disc herniation or canal stenosis. Vi sualized lung apices: Biapical pleural thickening. IMPRESSION: No acute abnormalities when compared to prior dated March 26, 2018. Signed by: Dr. Kelly Meléndez M.D. on 04/12/2020 4:21 PM Dictated By: CHRISTI MELÉNDEZ MD 16 21 Transcribed By: TROY on 04/12/20 1621 COPY TO: JIM CORDERO MD CT BRAIN OQ8599-30-84 15:59:00 [place] [address] Patient Name: VICKI ESPARZA MR #: [id number] : 1940 Age/Sex: 79/F Req #: [id number] Adm Physician: Ordered by: JIM CORDERO MD Report #: [id number] Location: ER Room/Bed: Procedure: [id number] CT/CT TORI Pena WO Exam Date: 04/12/20 [...] HIP LEFT 2-3 VW (+/- PELVIS)2020-04-12 15:34:00 [place] [address] Patient Name: VICKI ESPARZA MR #: [id number] : 1940 Age/Sex: 79/F Req #: [id number] Adm Physician: Ordered by: JIM CORDERO MD Report #: [id number] Location: ER om/Bed: Procedure: [id number] DX/HIP LEF T 2-3 VW (+/- PELVIS) [...] MD on 04/12/201535 Transcribed By: TROY on 04/12/206 COPY TO: JIM CORDERO MD CHEST SINGLE (PORTABLE) 2020-04-12 15:31:00 [place] [address] Patient Name: VICKI ESPARZA MR #: [id number] : 1940 Age/Sex: 79/F Req #: [id number] Adm Physician: ROB VEGA MD Ordered by: JIM CORDERO MD Report #: [id number] Location: ICU Room/Bed: ICU [facility] Procedure: [id number] DX/CHEST S JAYCE (PORTABLE) Exam Date: 04/12/20 [...] 3:33 PM Dictated By: DANIELLA REMY MD 32 Transcribed By: TROY on 04/12/201532 COPY TO: JIM CORDERO MD BNP Xif-fXfl6683-75-12 14:10:00* Test Item Value Reference Range Interpretation Comments B-Type Natriuretic Peptide (test code = 45851-0) 52.8 0-100 [facility]2020-03-20 08:41:00 [facility] [address] [place] [address] Patient Name: VICKI ESPARZA MR #: [id number] : 1940 Age/Sex: 79/F Req #: [id number] Adm Physician: ROB VEGA MD Ordered by: ROB VEGA MD Report #: [id number] Location: [facility] Room/Bed: [place] [address] Procedure: [id number] DX/CHEST SI NGLE (PORTABLE) Exam Date: 03/20/20 Exam Time: 0530 REPORT STATUS: Signed EXAMINATIO N: CHEST SINGLE [...] TO: BENNIE VEGA MD CTA LOWER EXTREMITIES NZSRA7463-67-55 15:41:00 [place] [address] Patient Name: VICKI ESPARZA MR #: [id number] : 1940 Age/Sex: 79/F Req #: [id number] Adm Physician: ROB VEGA MD Ordered by: ROB VEGA MD Report #: [id number] Location: MED/SURG [facility]/Bed: [facility] Procedure: [id number] CT/CTA LOWE R EXTREMITIES BILAT Exam Date: [...] 3:56 PM Dictated By: MADALYN DEWEY MD 6843 Transcribed By: TROY on 03/19/20 5370 COPY TO: ROB VEGA MD FOOT LEFT JSXQNUCU8628-28-35 10:12:00 [place] [address] Patient Name: VICKI ESPARZA MR #: [id number] : 1940 Age/Sex: 79/F Req #: [id number] Adm Physician: ROB VEGA MD Ordered by: ROB VEGA MD Report #: [id number] Location: MED/SURG [place] m/Bed: 107-1 Procedure: [id number] DX/FOOT LEF T COMPLETE Exam Date: 03/18/20 Exam Time: 50 REPORT STATUS: Signed TECHNIQUE: 3 vi ews [...] Acid (test code = 3084-1) 6.2 2.6-8.0 [facility] uric acid measurement (mass/volume)2020-03-18 03:44:00* Test Item Value Reference Range Interpretation Comments Uric Acid (test code = 3084-1) 6.2 2.6-8.0 [facility] CenterCHE[facility]LE ([facility])2020-03-17 18:07:00 [place] [address] Patient Name: VICKI ESPARZA MR #: [id number] : 1940 Age/Sex: 79/F Req #: [id number] Adm Physician: Ordered by: IMANI HODGE DO Report #: [id number] Location: ER Room/Bed: Procedure: [id number] DX/CHES T SINGLE (PORTABLE) Exam Date: 03/17/20 [...] DO Fluoroscopic procedure less than one hour gkaigimk8565-08-62 16:30:00* Test Item Value Reference Range Interpretation Comments Lactic Acid Level (test code = Lactic Acid Level) 1.1 0.5- 2.0 [facility] CenterBlood yvyeqhw3259-30-62 15:20:00* Test Item Value Reference Range Interpretation Comments Blood Culture (test code = 58069651) NO GROWTH AFTER 5 DAYS, FINAL REPORT [facility] CenterTriglycerides Jtpuv2229-89-04 06:32:00* Test Item Value Reference Range Interpretation Comments Triglycerides Level (test code = 2571-8) 111 0-149 [facility] CenterCholesterol Espyx0296-85-63 06:32:00* Test Item Value Reference Range Interpretation Comments Cholesterol Level (test code = 2093-3) 184 0-199 Less than 200 mg/dL Low Bwoh830 - 239 mg/dL Borderline Msoi333 m g/dl and greater High Risk [facility] CenterLDL Udhkxlflkpq5388-68-25 06:32:00* Test Item Value Reference Range Interpretation Comments LDL Cholesterol (test code = 2089-1) 106 60-130 [facility] CenterHDL Litucvnvhdc6249-21-05 06:32:00* Test Item Value Reference Range Interpretation Comments HDL Cholesterol (test code = 2085-9) 56 40-60 [facility] CenterCholesterol/HDL Bjgfc9826-65-26 06:32:00 * Test Item Value Reference Range Interpretation Comments Cholesterol/HDL Ratio (test code = 9830-1) 3.3 3.0-3.6 [facility] CenterCreatine Kinase UN8805-23-35 04:01:00* Test Item Value Reference Range Interpretation Comments Creatine Kinase MB (test code = 11727-8) 1.30 0-5.0 [facility] CenterTroponin T3844-79-50 04:01:00* Test Item Value Reference Range Interpretation Comments Troponin I (test code = ASK8485) < 0.001 0-0.300 [facility] CenterCreatine Bzeniq1407-91-77 03:52:00* Test Item Value Reference Range Interpretation Comments Creatine Kinase (test code = 2157-6) 26 29-168 L [facility] CenterB-Type Natriuretic Kvgrzim9191-32-68 11:19:00* Test Item Value Reference Range Interpretation Comments B-Type Natriuretic Peptide (test code = 52460-3) 52.5 0-100 [facility] CenterD-Dimer Quantitative (PE/DVT)2019-11-17 11:03:00* Test Item Value Reference Range Interpretation Comments D-Dimer Quantitative (PE/DVT) (test code = 98504-0) 0.72 0. 00-0.45 H As with all in vitro diagnostic tests, the test results should be interpreted by the physician in conjunction with clinical findings and other test results.Test results are reported in NEW D-dimer units(ug/mLFEU).[facility] Arlingtonodium Dmtmf3253-15-80 11:01:00* Test Item Value Reference Range Interpretation Comments Sodium Level (test code = 2951-2) 142 136-145 [facility] CenterPotassium Prpvh4001-28-59 11:01:00* Test Item Value Reference Range Interpretation Comments Potassium Level (test code = 2823-3) 4.2 3.5-5.1 [facility] CenterChloride Qqdmh9160-96-04 11:01:00* Test Item Value Reference Range Interpretation Comments Chloride Level (test code = 2075-0) 104 98-107 [facility] CenterCarbon Dioxide Bytrx3538-42-27 11:01:00* Test Item Value Reference Range Interpretation Comments Carbon Dioxide Level (test code = 2028-9) 27 22-29 [facility] CenterAnion Fmg7019-31-55 11:01:00* Test Item Value Reference Range Interpretation Comments Anion Gap (test code = 54380-2) 15.2 8-16 [facility] CenterBlood Urea Fwebcjbt7236-92-21 11:01:00* Test Item Value Reference Range Interpretation Comments Blood Urea Nitrogen (test code = 3094-0) 24 7-26 [facility] CenterCreatinine2020-02-16 11:01:00* Test Item Value Reference Range Interpretation Comments Creatinine (test code = 2160-0) 1.26 0.57-1.11 H [facility] CenterBUN/Creatinine Vgugg6549-94-53 11:01:00* Test Item Value Reference Range Interpretation Comments BUN/Creatinine Ratio (test code = 3097-3) 19 6-25 [facility] CenterEstimat Glomerular Filtration Rate 2019-11-17 11:01:00* Test Item Value Reference Range Interpretation Comments Estimat Glomerular Filtration Rate (test code = 135031692) 41 >60 L Ranges were taken from the National Kidney Disease Education Program and the [facility] Kidney Foundation literature.Reference ranges:60 or greater: Liqwec89-87 ( for 3 consecutive months): Chronic kidney disease 15 or less: Kidney failureParis Regional Medical CenterGlucose Wxwpw8275-84-05 11:01:00* Test Item Value Reference Range Interpretation Comments Glucose Level (test code = NJL9145) 83 74-118 [facility] CenterCalcium Ssvdy8640-83-90 11:01:00* Test Item Value Reference Range Interpretation Comments Calcium Level (test code = 64617-3) 10.3 8.4-10.2 H [facility] CenterMagnesium Kwhjo8553-07-14 11:01:00* Test Item Value Reference Range Interpretation Comments Magnesium Level (test code = 14312-3) 2.1 1.3-2.1 [facility] CenterTotal Zymyvijqv0127-37-95 11:01:00* Test Item Value Reference Range Interpretation Comments Total Bilirubin (test code = 1975-2) 0.6 0.2-1.2 [facility] CenterAspartate Amino Transf (AST/SGOT) 2019-11-17 11:01:00* Test Item Value Reference Range Interpretation Comments Aspartate Amino Transf (AST/SGOT) (test code = Aspartate Amino Transf (AST/SGOT)) 35 5-34 H [facility] CenterAlanine Aminotransferase (ALT/SGPT) 2019-11-17 11:01:00* Test Item Value Reference Range Interpretation Comments Alanine Aminotransferase (ALT/SGPT) (test code = 1742-6) 23 0-55 [facility] CenterTotal Vmoivyb0147-22-26 11:01:00* Test Item Value Reference Range Interpretation Comments Total Protein (test code = 2885-2) 6.3 6.5-8.1 L [facility] CenterAlbumin2020-02-16 11:01:00* Test Item Value Reference Range Interpretation Comments Albumin (test code = 1751-7) 3.4 3.5-5.0 L [facility] CenterGlobulin2020-02-16 11:01:00* Test Item Value Reference Range Interpretation Comments Globulin (test code = 68978-6) 2.9 2.3-3.5 [facility] CenterAlbumin/Globulin Kaole8695-34-54 11:01:00 * Test Item Value Reference Range Interpretation Comments Albumin/Globulin Ratio (test code = 1759-0) 1.2 0.8-2.0 [facility] CenterAlkaline Lwjznyqjnqw8441-98-57 11:01:00* Test Item Value Reference Range Interpretation Comments Alkaline Phosphatase (test code = 6768-6) 74 40-150 [facility] CenterWhite Blood Kubqp9837-44-84 10:52:00* Test Item Value Reference Range Interpretation Comments White Blood Count (test code = 6690-2) 13.30 4.8-10.8 H [facility] CenterRed Blood Uulbs4908-04-27 10:52:00* Test Item Value Reference Range Interpretation Comments Red Blood Count (test code = 789-8) 4.76 3.6-5.1 [facility] CenterHemoglobin2020-02-16 10:52:00* Test Item Value Reference Range Interpretation Comments Hemoglobin (test code = 28059-3) 14.3 12.0-16.0 [facility] CenterHematocrit2020-02-16 10:52:00* Test Item Value Reference Range Interpretation Comments Hematocrit (test code = 4544-3) 44.1 34.2-44.1 [facility] CenterMean Corpuscular Ugxpjo2875-77-54 10:52:00* Test Item Value Reference Range Interpretation Comments Mean Corpuscular Volume (test code = 787-2) 92.6 81-99 [facility] CenterMean Corpuscular Mvouiahbde2084-02-58 10:52:00* Test Item Value Reference Range Interpretation Comments Mean Corpuscular Hemoglobin (test code = 785-6) 30.0 28-32 [facility] CenterMean Corpuscular Hemoglobin Concent 2019-11-17 10:52:00* Test Item Value Reference Range Interpretation Comments Mean Corpuscular Hemoglobin Concent (test code = 786-4) 32.4 31-35 [facility] CenterRed Cell Distribution Exgou1933-79-45 10:52:00* Test Item Value Reference Range Interpretation Comments Red Cell Distribution Width (test code = 96517-7) 13.9 11.7 -14.4 [facility] CenterPlatelet Aaprx4319-15-79 10:52:00* Test Item Value Reference Range Interpretation Comments Platelet Count (test code = 777-3) 354 140-360 [facility] CenterNeutrophils (%) (Auto)2019-11-17 10:52:00 * Test Item Value Reference Range Interpretation Comments Neutrophils (%) (Auto) (test code = 74351-4) 72.5 38.7-80.0 [facility] CenterLymphocytes (%) (Auto)2019-11-17 10:52:00 * Test Item Value Reference Range Interpretation Comments Lymphocytes (%) (Auto) (test code = 736-9) 18.6 18.0-39.1 [facility] CenterMonocytes (%) (Auto)2019-11-17 10:52:00* Test Item Value Reference Range Interpretation Comments Monocytes (%) (Auto) (test code = 5905-5) 7.9 4.4-11.3 [facility] CenterEosinophils (%) (Auto)2019-11-17 10:52:00 * Test Item Value Reference Range Interpretation Comments Eosinophils (%) (Auto) (test code = 713-8) 0.1 0.0-6.0 [facility] CenterBasophils (%) (Auto)2019-11-17 10:52:00* Test Item Value Reference Range Interpretation Comments Basophils (%) (Auto) (test code = 706-2) 0.3 0.0-1.0 [facility] CenterIM GRANULOCYTES %2019-11-17 10:52:00* Test Item Value Reference Range Interpretation Comments IM GRANULOCYTES % (test code = IM GRANULOCYTES %) 0.6 0.0- 1.0 [facility] CenterNeutrophils # (Auto)2019-11-17 10:52:00* Test Item Value Reference Range Interpretation Comments Neutrophils # (Auto) (test code = 751-8) 9.6 2.1-6.9 H [facility] CenterLymphocytes # (Auto)2019-11-17 10:52:00* Test Item Value Reference Range Interpretation Comments Lymphocytes # (Auto) (test code = 02350-6) 2.5 1.0-3.2 [facility] CenterMonocytes # (Auto)2019-11-17 10:52:00* Test Item Value Reference Range Interpretation Comments Monocytes # (Auto) (test code = 742-7) 1.1 0.2-0.8 H [facility] CenterEosinophils # (Auto)2019-11-17 10:52:00* Test Item Value Reference Range Interpretation Comments Eosinophils # (Auto) (test code = 711-2) 0.0 0.0-0.4 [facility] CenterBasophils # (Auto)2019-11-17 10:52:00* Test Item Value Reference Range Interpretation Comments Basophils # (Auto) (test code = 704-7) 0.0 0.0-0.1 [facility] CenterAbsolute Immature Granulocyte (auto 2019-11-17 10:52:00* Test Item Value Reference Range Interpretation Comments Absolute Immature Granulocyte (auto (idania t code = Absolute Immature Granulocyte (auto) 0.08 0-0.1 [facility] CenterCHEST 2 QQATK4208-33-58 09:56:00 [place] [address] Patient Name: VICKI ESPARZA MR #: [id number] : [birth year] Age/Sex: 79/F Req #: [id number] Adm Physician: Ordered by: RULA GRANDA MD Report #: [id number] Location: ER Room/Bed: Procedure: [id number] DX/CHEST 2 VIEWS Exam Date: 11/17/19 Exam [...] Comments D-Dimer Quantitative (PE/DVT) (test code = 99257-0) 0.72 0. 00-0.45 As with all in vitro diagnostic tests, the test results should be interpreted by the physician in conjunction with clinical findings and other test results.Test results are reported in NEW D-dimer units(ug/mLFEU).[facility] Medical CenterFibrin D-dimer DDU measurement in platelet poor plasma (mass/volume)2019-11-17 09:28:00* Test Item Value Reference Range Interpretation Comments D-Dimer Quantitative (PE/DVT) (test code = 49039-3) 0.72 0. 00-0.45 As with all in vitro diagnostic tests, the test results should be interpreted by the physician in conjunction with clinical findings and other test results.Test results are reported in NEW D-dimer units(ug/mLFEU).[facility] CenterUrine ARG2735-93-17 15:19:00* Test Item Value Reference Range Interpretation Comments Urine WBC (test code = 5821-4) 6-10 0-5 H [facility] CenterUrine LYC8125-87-65 15:19:00* Test Item Value Reference Range Interpretation Comments Urine RBC (test code = 00273-3) 11-20 0-5 [facility] Ztyjdxyl3713-27-63 15:19:00* Test Item Value Reference Range Interpretation Comments Urine Bacteria (test code = 91144-7) MODERATE NONE [facility] CenterU[facility] Epithelial Ykpqk9714-23-47 15:19:00 * Test Item Value Reference Range Interpretation Comments Urine Epithelial Cells (test code = 70559-8) MODERATE NONE [facility] LSG4888-17-76 15:19:00* Test Item Value Reference Range Interpretation Comments Urine WBC (test code = 5821-4) 6-10 0-5 [facility] CenterU[facility] BUM9510-05-78 15:19:00* Test Item Value Reference Range Interpretation Comments Urine RBC (test code = 39776-0) 11-20 0-5 H [facility] CenterU[facility] Wvfnsucn7553-55-07 15:19:00* Test Item Value Reference Range Interpretation Comments Urine Bacteria (test code = 86929-6) MODERATE NONE [facility] CenterU[facility] Epithelial Cwkvl3114-63-30 15:19:00 * Test Item Value Reference Range Interpretation Comments Urine Epithelial Cells (test code = 96585-0) MODERATE NONE [facility] CenterCT ABDOMEN/PELVIS LY3165-26-58 14:30:00 [facility] [address] [address] Patient Name: VICKI ESPARZA MR #: [id number] : [birth year] Age/Sex: 78/F Req #: [id number] Adm Physician: Ordered by: STEF SCALES WAGE CONCILIATOR Report #: [id number] Location: ER Room/Bed: Procedure: CT/CT ABDOMEN/PELVIS WO Exam Date: 08/17/19 Exam [...] splenomegaly. PANCREAS: No focal masses or yoshi laatnya dilatation. ADRENALS: No adrenal nodules KIDNEYS/URETERS: St [...] on 08/17/2019 2:39 PM Dictated By: NANNETTE [facility] Signed By: NANNETTE HAM MD, MD on 08/17/191438 Transcribed By: TROY on 08/17/191438 COPY TO: STEF SCALES WAGE CONCILIATOR Sodium Level 2019-08-17 14:27:00* Test Item Value Reference Range Interpretation Comments Sodium Level (test code = 2951-2) 140 136-145 [facility]Pot[facility] Fhwuk5473-83-54 14:27:00* Test Item Value Reference Range Interpretation Comments Potassium Level (test code = 2823-3) 3.7 3.5-5.1 [facility] CenterChloride Hejbz5921-61-23 14:27:00* Test Item Value Reference Range Interpretation Comments Chloride Level (test code = 2075-0) 103 98-107 [facility] CenterCarbon Dioxide Vszvt9736-95-09 14:27:00* Test Item Value Reference Range Interpretation Comments Carbon Dioxide Level (test code = 2028-9) 24 22-29 [facility] CenterAnion Vhx3432-38-81 14:27:00* Test Item Value Reference Range Interpretation Comments Anion Gap (test code = 62169-3) 16.7 8-16 H [facility] CenterBlood Urea Oowkognt8113-16-25 14:27:00* Test Item Value Reference Range Interpretation Comments Blood Urea Nitrogen (test code = 3094-0) 14 7-26 [facility] CenterCreatinine2019-11-16 14:27:00* Test Item Value Reference Range Interpretation Comments Creatinine (test code = 2160-0) 1.39 0.57-1.11 H [facility] CenterBUN/Creatinine Nujyi3569-14-50 14:27:00* Test Item Value Reference Range Interpretation Comments BUN/Creatinine Ratio (test code = 3097-3) 10 6-25 [facility] CenterEstimat Glomerular Filtration Rate 2019-08-17 14:27:00* Test Item Value Reference Range Interpretation Comments Estimat Glomerular Filtration Rate (test code = 833851805) 37 >60 L Ranges were taken from the National Kidney Disease Education Program and the [place] [facility] literature.Reference ranges:60 or greater: Poryov98-97 ( for 3 consecutive months): Chronic kidney disease 15 or less: Kidney failureParis [facility] Medical CenterGlucose Mmjhu6783-79-37 14:27:00* Test Item Value Reference Range Interpretation Comments Glucose Level (test code = FSZ5475) 107 74-118 [facility] CenterCalcium Jcbkt2019-88-65 14:27:00* Test Item Value Reference Range Interpretation Comments Calcium Level (test code = 08238-9) 10.9 8.4-10.2 H [facility] CenterTotal Xqtwddcvq3930-41-74 14:27:00* Test Item Value Reference Range Interpretation Comments Total Bilirubin (test code = 1975-2) 0.4 0.2-1.2 [facility] CenterAspartate Amino Transf (AST/SGOT) 2019-08-17 14:27:00* Test Item Value Reference Range Interpretation Comments Aspartate Amino Transf (AST/SGOT) (test code = Aspartate Amino Transf (AST/SGOT)) 27 5-34 [facility] CenterAlanine Aminotransferase (ALT/SGPT) 2019-08-17 14:27:00* Test Item Value Reference Range Interpretation Comments Alanine Aminotransferase (ALT/SGPT) (test code = 1742-6) 14 0-55 [facility] CenterTotal Dznrkvd7625-25-82 14:27:00* Test Item Value Reference Range Interpretation Comments Total Protein (test code = 2885-2) 6.6 6.5-8.1 [facility] CenterAlbumin2019-11-16 14:27:00* Test Item Value Reference Range Interpretation Comments Albumin (test code = 1751-7) 3.5 3.5-5.0 [facility] CenterGlobulin2019-11-16 14:27:00* Test Item Value Reference Range Interpretation Comments Globulin (test code = 29693-1) 3.1 2.3-3.5 [facility] CenterAlbumin/Globulin Cqjfi4661-73-00 14:27:00 * Test Item Value Reference Range Interpretation Comments Albumin/Globulin Ratio (test code = 1759-0) 1.1 0.8-2.0 [facility] CenterAlkaline Mtfflonqgzr2628-26-69 14:27:00* Test Item Value Reference Range Interpretation Comments Alkaline Phosphatase (test code = 6768-6) 80 40-150 [facility] CenterWhite Blood Rzifr8217-61-93 13:56:00* Test Item Value Reference Range Interpretation Comments White Blood Count (test code = 6690-2) 11.08 4.8-10.8 H [facility] CenterRed Blood Jvcxn8419-22-05 13:56:00* Test Item Value Reference Range Interpretation Comments Red Blood Count (test code = 789-8) 4.68 3.6-5.1 [facility] CenterHemoglobin2019-11-16 13:56:00* Test Item Value Reference Range Interpretation Comments Hemoglobin (test code = 17480-0) 13.7 12.0-16.0 [facility] CenterHematocrit2019-11-16 13:56:00* Test Item Value Reference Range Interpretation Comments Hematocrit (test code = 4544-3) 42.5 34.2-44.1 [facility] CenterMean Corpuscular Nkwwmt9912-48-90 13:56:00* Test Item Value Reference Range Interpretation Comments Mean Corpuscular Volume (test code = 787-2) 90.8 81-99 [facility] CenterMean Corpuscular Yhaeaztirk3600-38-68 13:56:00* Test Item Value Reference Range Interpretation Comments Mean Corpuscular Hemoglobin (test code = 785-6) 29.3 28-32 [facility] CenterMean Corpuscular Hemoglobin Concent 2019-08-17 13:56:00* Test Item Value Reference Range Interpretation Comments Mean Corpuscular Hemoglobin Concent (test code = 786-4) 32.2 31-35 [facility] CenterRed Cell Distribution Ogyks5374-31-07 13:56:00* Test Item Value Reference Range Interpretation Comments Red Cell Distribution Width (test code = 40814-3) 12.6 11.7 -14.4 [facility] CenterPlatelet Dmsxe9321-49-07 13:56:00* Test Item Value Reference Range Interpretation Comments Platelet Count (test code = 777-3) 343 140-360 [facility] CenterNeutrophils (%) (Auto)2019-08-17 13:56:00 * Test Item Value Reference Range Interpretation Comments Neutrophils (%) (Auto) (test code = 72083-3) 73.7 38.7-80.0 [facility] CenterLymphocytes (%) (Auto)2019-08-17 13:56:00 * Test Item Value Reference Range Interpretation Comments Lymphocytes (%) (Auto) (test code = 736-9) 18.5 18.0-39.1 [facility] CenterMonocytes (%) (Auto)2019-08-17 13:56:00* Test Item Value Reference Range Interpretation Comments Monocytes (%) (Auto) (test code = 5905-5) 6.0 4.4-11.3 [facility] CenterEosinophils (%) (Auto)2019-08-17 13:56:00 * Test Item Value Reference Range Interpretation Comments Eosinophils (%) (Auto) (test code = 713-8) 0.5 0.0-6.0 [facility] CenterBasophils (%) (Auto)2019-08-17 13:56:00* Test Item Value Reference Range Interpretation Comments Basophils (%) (Auto) (test code = 706-2) 0.8 0.0-1.0 [facility] CenterIM GRANULOCYTES %2019-08-17 13:56:00* Test Item Value Reference Range Interpretation Comments IM GRANULOCYTES % (test code = IM GRANULOCYTES %) 0.5 0.0- 1.0 [facility] CenterNeutrophils # (Auto)2019-08-17 13:56:00* Test Item Value Reference Range Interpretation Comments Neutrophils # (Auto) (test code = 751-8) 8.2 2.1-6.9 H [facility] CenterLymphocytes # (Auto)2019-08-17 13:56:00* Test Item Value Reference Range Interpretation Comments Lymphocytes # (Auto) (test code = 34415-5) 2.1 1.0-3.2 [facility] CenterMonocytes # (Auto)2019-08-17 13:56:00* Test Item Value Reference Range Interpretation Comments Monocytes # (Auto) (test code = 742-7) 0.7 0.2-0.8 [facility] CenterEosinophils # (Auto)2019-08-17 13:56:00* Test Item Value Reference Range Interpretation Comments Eosinophils # (Auto) (test code = 711-2) 0.1 0.0-0.4 [facility] CenterBasophils # (Auto)2019-08-17 13:56:00* Test Item Value Reference Range Interpretation Comments Basophils # (Auto) (test code = 704-7) 0.1 0.0-0.1 [facility] CenterAbsolute Immature Granulocyte (auto 2019-08-17 13:56:00* Test Item Value Reference Range Interpretation Comments Absolute Immature Granulocyte (auto (idania t code = Absolute Immature Granulocyte (auto) 0.05 0-0.1 [facility] CenterUrine Oijxf5077-34-14 13:56:00* Test Item Value Reference Range Interpretation Comments Urine Color (test code = 5778-6) YELLOW YELLOW [facility] CenterUrine Cutslpc8055-49-54 13:56:00* Test Item Value Reference Range Interpretation Comments Urine Clarity (test code = 88798-2) CLEAR CLEAR [facility] CenterUrine Specific Kjcelpq2719-19-63 13:56:00 * Test Item Value Reference Range Interpretation Comments Urine Specific [place] (test code = 5811-5) 1.010 1.010-1.02 5 [facility] CenterUrine qX9544-57-73 13:56:00* Test Item Value Reference Range Interpretation Comments Urine pH (test code = 43738-9) 6 5-7 [facility] CenterUrine Leukocyte Boygcwfd7678-44-95 13:56:00* Test Item Value Reference Range Interpretation Comments Urine Leukocyte Esterase (test code = 12827-9) TRACE NEGATIV E H [facility] CenterUrine Gryesoi6081-99-13 13:56:00* Test Item Value Reference Range Interpretation Comments Urine Nitrite (test code = 34740-3) NEGATIVE NEGATIVE [facility] Dmikbdr8960-50-06 13:56:00* Test Item Value Reference Range Interpretation Comments Urine Protein (test code = 25446-8) NEGATIVE NEGATIVE [facility] Glucose (UA)2019-08-17 13:56:00* Test Item Value Reference Range Interpretation Comments Urine Glucose (UA) (test code = 57583-7) NEGATIVE NEGATIVE [facility] Ighmrjb0925-06-46 13:56:00* Test Item Value Reference Range Interpretation Comments Urine Ketones (test code = 70383-3) NEGATIVE NEGATIVE [facility] Eiaclhnjdooh2889-34-29 13:56:00* Test Item Value Reference Range Interpretation Comments Urine Urobilinogen (test code = 73290-4) 0.2 0.2-1 [facility] CenterUrine Nflaxnpyx5162-86-94 13:56:00* Test Item Value Reference Range Interpretation Comments Urine Bilirubin (test code = 1977-8) NEGATIVE NEGATIVE [facility] Vgvte4059-65-42 13:56:00* Test Item Value Reference Range Interpretation Comments Urine Blood (test code = 55397-4) MODERATE NEGATIVE [facility] CenterUrine Elmrv8733-22-96 13:56:00* Test Item Value Reference Range Interpretation Comments Urine Color (test code = 5778-6) YELLOW YELLOW [facility] CenterUrine Rhlolyw7775-09-39 13:56:00* Test Item Value Reference Range Interpretation Comments Urine Clarity (test code = 75669-1) CLEAR CLEAR [facility] CenterUrine Specific Tgmaifb9859-76-75 13:56:00 * Test Item Value Reference Range Interpretation Comments Urine Specific [place] (test code = 5811-5) 1.010 1.010-1.02 5 [facility] CenterUrine wF2813-19-92 13:56:00* Test Item Value Reference Range Interpretation Comments Urine pH (test code = 41601-1) 6 5-7 [facility] CenterUrine Leukocyte Ehtfrkhe4241-18-88 13:56:00* Test Item Value Reference Range Interpretation Comments Urine Leukocyte Esterase (test code = 56209-2) TRACE NEGATIV E H [facility] CenterUrine Ufcnjoj1637-42-37 13:56:00* Test Item Value Reference Range Interpretation Comments Urine Nitrite (test code = 77567-4) NEGATIVE NEGATIVE [facility] CenterUrine Cifgcnf6048-79-36 13:56:00* Test Item Value Reference Range Interpretation Comments Urine Protein (test code = 79997-2) NEGATIVE NEGATIVE [facility] CenterUrine Glucose (UA)2019-08-17 13:56:00* Test Item Value Reference Range Interpretation Comments Urine Glucose (UA) (test code = 63338-9) NEGATIVE NEGATIVE [facility] CenterUrine Lgaszxt8902-40-50 13:56:00* Test Item Value Reference Range Interpretation Comments Urine Ketones (test code = 46409-9) NEGATIVE NEGATIVE [facility] CenterUrine Tjntgwwgkjpc2441-90-84 13:56:00* Test Item Value Reference Range Interpretation Comments Urine Urobilinogen (test code = 04098-3) 0.2 0.2-1 [facility] CenterUrine Lftuokcbo5911-72-32 13:56:00* Test Item Value Reference Range Interpretation Comments Urine Bilirubin (test code = 1977-8) NEGATIVE NEGATIVE [facility] CenterUrine Cgkwi1664-28-65 13:56:00* Test Item Value Reference Range Interpretation Comments Urine Blood (test code = 54186-3) MODERATE NEGATIVE [facility] GFRZCCJCW0668-53-06 16:54:46- BREAST ULTRASOUND BILATERALULTRASOUND OF BOTH BREASTS [...] in 1 year.Bridgett Granger M.D. dm/:01/21/2019 16:54:46 Skein Bleacher: Praveena TORRES, [facility]-FWletter sent: BIRADS 1-2 Combo FU Letter Ultrasound BI-RADS: 2 BenignDIAG MAMM RIGHT JERRY CAD LFAIRHA2693-31-16 16:52:59 - DIAG MAMM RIGHT JERRY CAD DIGITALUNILATERAL RIGHT DIGITAL DIAGNOSTIC MAMMOGRAM 3D/2D WITH CAD: 01/21/2019CLINICAL: Recall from screening. Digital breast tomosynthesis was performed in addition to routine CC and MLO views. Current mammographic images were evaluated by either a TAPP M-Vu or a imbookin (Pogby) ImageChecker CAD (computer aided detection system). Comparison is made to exams dated 01/08/2019 mammogram, 01/01/2018 mammogram, and 12/23/2016 mammogram - [facility]-. The tissue of the right breast is heterogeneously dense. This may lower the sensitivity of mammography. No suspicious mass, architectural distortion, malignant type calcification, or lymph node abnormality detected. IMPRESSION: INCOMPLETE ASSESSMENT: ADDITIONAL IMAGING EVALUATION RECOMMENDEDUltrasound pending for additional evaluation. Bridgett Granger M.D. dm/penrad:01/21/2019 16:52:59 Entry: - 01/22/2019 11:42:22Imaging Technologist: Ilene TORRES, [facility]-Mammogram BI-RADS: 0 IndeterminateSCR MAMM BILATERAL JERRY CAD DIGITAL 2019-01-08 13:02:39 - SCR MAMM BILATERAL JERRY CAD DIGITALBILATERAL DIGITAL SCREENING MAMMOGRAM 3D/2D WITH CAD: 01/08/2019CLINICAL: Asymptomatic. Digital breast tomosynthesis was performed in addition to routine CC and MLO views. Current mammographic images were evaluated by either a TAPP M-Vu or a imbookin (Pogby) ImageChecker CAD (computer aided detection system). Comparison is made to exams dated 01/01/2018 mammogram, 12/23/2016 mammogram, and 12/18/2015 mammogram - [facility]-. There are scattered fibroglandular tissues in both [...] ultrasound is recommended.Pranav vera M.D. ss/:01/08/2019 13:02:39 Skein Bleacher: Tiny TORRES, [facility]-letter sent: Additional Imaging Mammogram BI-RADS : 0 IndeterminateCT CERVICAL SPINE AT8275-12-51 11:30:[address] [address] Patient Name: VICKI ESPARZA MR #: [id number] : 1940 Age/Sex: 77/F Req #: [id number] Adm Physician: Ordered by: INNA SÁNCHEZ MD Report #: [id number] Location: ER Room/Bed: Procedure: [id number] CT/CT CERVICAL SPINE W O Exam Date: [...] PM Dictated By: ASAF VIEIRA MD, MD 1735 Transcribed By: TROY on 03/26/18 173 COPY TO: INNA SÁNCHEZ MD CT BRAIN WO 2018-03-26 11:25:00 [address] [address] Patient Name: VICKI ESPARZA MR #: [id number] : 1940 Age/Sex: 77/F Req #: [id number] Adm Physician: Ordered by: RUPERTO RYAN WAGE CONCILIATOR Report #: [id number] Location: ER Room/Bed: Procedure: [id number] CT/CT BRAIN WO Exam D ate: 03/26/18 [...] TROY on 03/03 COPY TO: RUPERTO RYAN NP Creatine Kinase MB 2018-02-15 15:14:00* Test Item Value Reference Range Interpretation Comments Creatine Kinase MB (test code = 49287-8) 1.30 0-5.0 [place] 77321018-05-17 15:14:00* Test Item Value Reference Range Interpretation Comments Troponin I (test code = BPE6457) -0.001 0-0.300 [facility] CenterCreatine Kinase PQ6682-60-75 15:14:00* Test Item Value Reference Range Interpretation Comments Creatine Kinase MB (test code = 07212-0) 1.30 0-5.0 [address] [place] 77321018-05-17 15:14:00* Test Item Value Reference Range Interpretation Comments Troponin I (test code = DZY5664) -0.001 0-0.300 [facility] NT4525-45-13 15:14:00* Test Item Value Reference Range Interpretation Comments Creatine Kinase MB (test code = 74872-2) 1.30 0-5.0 [place] 77321018-05-17 15:14:00* Test Item Value Reference Range Interpretation Comments Troponin I (test code = BIP3412) -0.001 0-0.300 [facility] CenterCreatine Kinase QB1096-51-94 15:14:00* Test Item Value Reference Range Interpretation Comments Creatine Kinase MB (test code = 00529-0) 1.30 0-5.0 [place] 77321018-05-17 15:14:00* Test Item Value Reference Range Interpretation Comments Troponin I (test code = ARC0924) < 0.001 0-0.300 [facility] CenterCreatine Jjpuxv6275-30-49 15:08:00* Test Item Value Reference Range Interpretation Comments Creatine Kinase (test code = 2157-6) 41 29-168 [facility] CenterCreatine Ameznl8379-87-01 15:08:00* Test Item Value Reference Range Interpretation Comments Creatine Kinase (test code = 2157-6) 41 29-168 [facility] CenterCreatine Kuxlho5443-04-49 15:08:00* Test Item Value Reference Range Interpretation Comments Creatine Kinase (test code = 2157-6) 41 29-168 [facility] CenterCreatine Uiyyqz3716-19-16 15:08:00* Test Item Value Reference Range Interpretation Comments Creatine Kinase (test code = 2157-6) 41 29-168 [facility] CenterB-Type Natriuretic Kplvyhe5806-81-61 14:23:00* Test Item Value Reference Range Interpretation Comments B-Type Natriuretic Peptide (test code = 88439-7) 288.6 0-100 H [facility] CenterB-Type Natriuretic Ltaebnh0621-71-39 14:23:00* Test Item Value Reference Range Interpretation Comments B-Type Natriuretic Peptide (test code = 97485-1) 288.6 0-100 H [facility] CenterB-Type Natriuretic Oneydcq5127-63-46 14:23:00* Test Item Value Reference Range Interpretation Comments B-Type Natriuretic Peptide (test code = 99098-2) 288.6 0-100 H [facility] CenterB-Type Natriuretic Teaktpw6191-94-80 14:23:00* Test Item Value Reference Range Interpretation Comments B-Type Natriuretic Peptide (test code = 80262-7) 288.6 0-100 [facility] Hgbnd9786-22-60 12:24:00* Test Item Value Reference Range Interpretation Comments Sodium Level (test code = 2951-2) 142 136-145 [facility] CenterPotassium Mgewa7940-42-34 12:24:00* Test Item Value Reference Range Interpretation Comments Potassium Level (test code = 2823-3) 3.6 3.5-5.1 [facility] CenterChloride Yxtoe2432-40-44 12:24:00* Test Item Value Reference Range Interpretation Comments Chloride Level (test code = 2075-0) 104 98-107 [facility] CenterCarbon Dioxide Qpimg2614-63-47 12:24:00* Test Item Value Reference Range Interpretation Comments Carbon Dioxide Level (test code = 2028-9) 27 22-29 [facility] CenterAnion Upq7574-83-81 12:24:00* Test Item Value Reference Range Interpretation Comments Anion Gap (test code = 73172-2) 14.6 8-16 [facility] CenterBlood Urea Lpdnxnch7216-34-31 12:24:00* Test Item Value Reference Range Interpretation Comments Blood Urea Nitrogen (test code = 3094-0) 13 7-26 [facility] CenterCreatinine2018-05-17 12:24:00* Test Item Value Reference Range Interpretation Comments Creatinine (test code = 2160-0) 1.31 0.57-1.11 H [facility] CenterBUN/Creatinine Fsyvd4934-64-00 12:24:00* Test Item Value Reference Range Interpretation Comments BUN/Creatinine Ratio (test code = 3097-3) 10 6-25 [facility] CenterEstimat Glomerular Filtration Rate 2018-02-15 12:24:00* Test Item Value Reference Range Interpretation Comments Estimat Glomerular Filtration Rate (test code = 80454-4) 39 >60 L Ranges were taken from the National Kidney Disease Education Program and the [place] [facility] literature.Reference ranges:60 or greater: Rkelsb76-87 ( for 3 consecutive months): Chronic kidney disease 15 or less: Kidney failureParis [facility] Medical CenterGlucose Uxjcn3008-09-77 12:24:00* Test Item Value Reference Range Interpretation Comments Glucose Level (test code = TTX9072) 95 74-118 [facility] CenterCalcium Tehpj0222-14-02 12:24:00* Test Item Value Reference Range Interpretation Comments Calcium Level (test code = 95128-7) 10.5 8.4-10.2 H [facility] CenterTotal Dndqkwnqu7277-17-35 12:24:00* Test Item Value Reference Range Interpretation Comments Total Bilirubin (test code = 1975-2) 0.8 0.2-1.2 [facility] CenterAspartate Amino Transf (AST/SGOT) 2018-02-15 12:24:00* Test Item Value Reference Range Interpretation Comments Aspartate Amino Transf (AST/SGOT) (test code = Aspartate Amino Transf (AST/SGOT)) 16 5-34 [facility] CenterAlanine Aminotransferase (ALT/SGPT) 2018-02-15 12:24:00* Test Item Value Reference Range Interpretation Comments Alanine Aminotransferase (ALT/SGPT) (test code = 1742-6) 9 0-55 [facility] CenterTotal Nncimnt8786-32-32 12:24:00* Test Item Value Reference Range Interpretation Comments Total Protein (test code = 2885-2) 6.6 6.5-8.1 [facility] CenterAlbumin2018-05-17 12:24:00* Test Item Value Reference Range Interpretation Comments Albumin (test code = 1751-7) 3.1 3.5-5.0 L [facility] CenterGlobulin2018-05-17 12:24:00* Test Item Value Reference Range Interpretation Comments Globulin (test code = 13897-6) 3.5 2.3-3.5 [facility] CenterAlbumin/Globulin Sduwp5719-19-18 12:24:00 * Test Item Value Reference Range Interpretation Comments Albumin/Globulin Ratio (test code = 1759-0) 0.9 0.8-2.0 [facility] CenterAlkaline Xxozuvecrmy9856-01-56 12:24:00* Test Item Value Reference Range Interpretation Comments Alkaline Phosphatase (test code = 6768-6) 72 40-150 [facility] Iifys2199-21-00 12:24:00* Test Item Value Reference Range Interpretation Comments Sodium Level (test code = 2951-2) 142 136-145 [facility] CenterPotassium Riklr5626-53-30 12:24:00* Test Item Value Reference Range Interpretation Comments Potassium Level (test code = 2823-3) 3.6 3.5-5.1 [facility] CenterChloride Aqsby4822-03-68 12:24:00* Test Item Value Reference Range Interpretation Comments Chloride Level (test code = 2075-0) 104 98-107 [facility] CenterCarbon Dioxide Kvxmk2038-88-31 12:24:00* Test Item Value Reference Range Interpretation Comments Carbon Dioxide Level (test code = 2028-9) 27 22-29 [facility] CenterAnion Qhl4886-52-43 12:24:00* Test Item Value Reference Range Interpretation Comments Anion Gap (test code = 64948-4) 14.6 8-16 [facility] CenterBlood Urea Xsjatgup2912-94-16 12:24:00* Test Item Value Reference Range Interpretation Comments Blood Urea Nitrogen (test code = 3094-0) 13 7-26 [facility] CenterCreatinine2018-05-17 12:24:00* Test Item Value Reference Range Interpretation Comments Creatinine (test code = 2160-0) 1.31 0.57-1.11 H [facility] CenterBUN/Creatinine Igcjt3476-81-21 12:24:00* Test Item Value Reference Range Interpretation Comments BUN/Creatinine Ratio (test code = 3097-3) 10 6-25 [facility] CenterEstimat Glomerular Filtration Rate 2018-02-15 12:24:00* Test Item Value Reference Range Interpretation Comments Estimat Glomerular Filtration Rate (test code = 49132-0) 39 >60 L Ranges were taken from the National Kidney Disease Education Program and the [facility] Kidney Foundation literature.Reference ranges:60 or greater: Oujhkr26-54 ( for 3 consecutive months): Chronic kidney disease 15 or less: Kidney failureParis [facility] Medical CenterGlucose Tdife6485-75-51 12:24:00* Test Item Value Reference Range Interpretation Comments Glucose Level (test code = MBH3580) 95 74-118 [facility] CenterCalcium Vozgm2408-03-58 12:24:00* Test Item Value Reference Range Interpretation Comments Calcium Level (test code = 94052-4) 10.5 8.4-10.2 H [facility] CenterTotal Wjnqpkani5645-46-72 12:24:00* Test Item Value Reference Range Interpretation Comments Total Bilirubin (test code = 1975-2) 0.8 0.2-1.2 [facility] CenterAspartate Amino Transf (AST/SGOT) 2018-02-15 12:24:00* Test Item Value Reference Range Interpretation Comments Aspartate Amino Transf (AST/SGOT) (test code = Aspartate Amino Transf (AST/SGOT)) 16 5-34 [facility] CenterAlanine Aminotransferase (ALT/SGPT) 2018-02-15 12:24:00* Test Item Value Reference Range Interpretation Comments Alanine Aminotransferase (ALT/SGPT) (test code = 1742-6) 9 0-55 [facility] CenterTotal Mymrwcx5586-69-92 12:24:00* Test Item Value Reference Range Interpretation Comments Total Protein (test code = 2885-2) 6.6 6.5-8.1 [facility] CenterAlbumin2018-05-17 12:24:00* Test Item Value Reference Range Interpretation Comments Albumin (test code = 1751-7) 3.1 3.5-5.0 L [facility] CenterGlobulin2018-05-17 12:24:00* Test Item Value Reference Range Interpretation Comments Globulin (test code = 63185-5) 3.5 2.3-3.5 [facility] CenterAlbumin/Globulin Cbaov1338-10-28 12:24:00 * Test Item Value Reference Range Interpretation Comments Albumin/Globulin Ratio (test code = 1759-0) 0.9 0.8-2.0 [facility] CenterAlkaline Tzugggmtuvq5295-92-81 12:24:00* Test Item Value Reference Range Interpretation Comments Alkaline Phosphatase (test code = 6768-6) 72 40-150 [facility] Ohenq7319-35-63 12:24:00* Test Item Value Reference Range Interpretation Comments Sodium Level (test code = 2951-2) 142 136-145 [facility] CenterPotassium Otajt3210-24-27 12:24:00* Test Item Value Reference Range Interpretation Comments Potassium Level (test code = 2823-3) 3.6 3.5-5.1 [facility] CenterChloride Nboqx6121-81-64 12:24:00* Test Item Value Reference Range Interpretation Comments Chloride Level (test code = 2075-0) 104 98-107 [facility] CenterCarbon Dioxide Cuexn7787-52-36 12:24:00* Test Item Value Reference Range Interpretation Comments Carbon Dioxide Level (test code = 2028-9) 27 22-29 [facility] CenterAnion Wsr1107-72-07 12:24:00* Test Item Value Reference Range Interpretation Comments Anion Gap (test code = 83039-1) 14.6 8-16 [facility] CenterBlood Urea Zqgmfkub8248-44-14 12:24:00* Test Item Value Reference Range Interpretation Comments Blood Urea Nitrogen (test code = 3094-0) 13 7-26 [facility] CenterCreatinine2018-05-17 12:24:00* Test Item Value Reference Range Interpretation Comments Creatinine (test code = 2160-0) 1.31 0.57-1.11 H [facility] CenterBUN/Creatinine Reqpq6844-74-12 12:24:00* Test Item Value Reference Range Interpretation Comments BUN/Creatinine Ratio (test code = 3097-3) 10 6-25 [facility] CenterEstimat Glomerular Filtration Rate 2018-02-15 12:24:00* Test Item Value Reference Range Interpretation Comments Estimat Glomerular Filtration Rate (test code = 27439-3) 39 >60 L Ranges were taken from the National Kidney Disease Education Program and the [facility] literature.Reference ranges:60 or greater: Jhfoaq90-02 ( for 3 consecutive months): Chronic kidney disease 15 or less: Kidney failureParis Regional Medical CenterGlucose Uboeg1758-24-80 12:24:00* Test Item Value Reference Range Interpretation Comments Glucose Level (test code = HYQ6905) 95 74-118 [facility] CenterCalcium Muyqr2045-26-09 12:24:00* Test Item Value Reference Range Interpretation Comments Calcium Level (test code = 45900-8) 10.5 8.4-10.2 H [facility] CenterTotal Dkqkievcz3297-52-44 12:24:00* Test Item Value Reference Range Interpretation Comments Total Bilirubin (test code = 1975-2) 0.8 0.2-1.2 [facility] CenterAspartate Amino Transf (AST/SGOT) 2018-02-15 12:24:00* Test Item Value Reference Range Interpretation Comments Aspartate Amino Transf (AST/SGOT) (test code = Aspartate Amino Transf (AST/SGOT)) 16 5-34 [facility] CenterAlanine Aminotransferase (ALT/SGPT) 2018-02-15 12:24:00* Test Item Value Reference Range Interpretation Comments Alanine Aminotransferase (ALT/SGPT) (test code = 1742-6) 9 0-55 [facility] CenterTotal Uygfcor9444-10-76 12:24:00* Test Item Value Reference Range Interpretation Comments Total Protein (test code = 2885-2) 6.6 6.5-8.1 [facility] CenterAlbumin2018-05-17 12:24:00* Test Item Value Reference Range Interpretation Comments Albumin (test code = 1751-7) 3.1 3.5-5.0 L [facility] CenterGlobulin2018-05-17 12:24:00* Test Item Value Reference Range Interpretation Comments Globulin (test code = 45720-7) 3.5 2.3-3.5 [facility] CenterAlbumin/Globulin Efkkt9033-87-13 12:24:00 * Test Item Value Reference Range Interpretation Comments Albumin/Globulin Ratio (test code = 1759-0) 0.9 0.8-2.0 [facility] CenterAlkaline Yqqgpemuzsb4927-62-56 12:24:00* Test Item Value Reference Range Interpretation Comments Alkaline Phosphatase (test code = 6768-6) 72 40-150 [facility] Vakrh5447-54-73 12:24:00* Test Item Value Reference Range Interpretation Comments Sodium Level (test code = 2951-2) 142 136-145 [facility] CenterPotassium Jbgpa9000-42-45 12:24:00* Test Item Value Reference Range Interpretation Comments Potassium Level (test code = 2823-3) 3.6 3.5-5.1 [facility] CenterChloride Bffkf3851-53-38 12:24:00* Test Item Value Reference Range Interpretation Comments Chloride Level (test code = 2075-0) 104 98-107 [facility] CenterCarbon Dioxide Tbqev5895-05-34 12:24:00* Test Item Value Reference Range Interpretation Comments Carbon Dioxide Level (test code = 2028-9) 27 22-29 [facility] CenterAnion Nex0160-63-12 12:24:00* Test Item Value Reference Range Interpretation Comments Anion Gap (test code = 01407-0) 14.6 8-16 [facility] CenterBlood Urea Aetopahi9051-24-32 12:24:00* Test Item Value Reference Range Interpretation Comments Blood Urea Nitrogen (test code = 3094-0) 13 7-26 [facility] CenterCreatinine2018-05-17 12:24:00* Test Item Value Reference Range Interpretation Comments Creatinine (test code = 2160-0) 1.31 0.57-1.11 H [facility] CenterBUN/Creatinine Nuwfm5444-50-10 12:24:00* Test Item Value Reference Range Interpretation Comments BUN/Creatinine Ratio (test code = 3097-3) 10 6-25 [facility] CenterEstimat Glomerular Filtration Rate 2018-02-15 12:24:00* Test Item Value Reference Range Interpretation Comments Estimat Glomerular Filtration Rate (test code = 430787576) 39 >60 L Ranges were taken from the National Kidney Disease Education Program and the [facility] literature.Reference ranges:60 or greater: Pkhyhf81-81 ( for 3 consecutive months): Chronic kidney disease 15 or less: Kidney failureParis Regional Medical CenterGlucose Womxq0381-81-61 12:24:00* Test Item Value Reference Range Interpretation Comments Glucose Level (test code = ZKV4537) 95 74-118 [facility] CenterCalcium Qzefb5623-52-61 12:24:00* Test Item Value Reference Range Interpretation Comments Calcium Level (test code = 26715-6) 10.5 8.4-10.2 H [facility] CenterTotal Sykwvlhag0508-76-32 12:24:00* Test Item Value Reference Range Interpretation Comments Total Bilirubin (test code = 1975-2) 0.8 0.2-1.2 [facility] CenterAspartate Amino Transf (AST/SGOT) 2018-02-15 12:24:00* Test Item Value Reference Range Interpretation Comments Aspartate Amino Transf (AST/SGOT) (test code = Aspartate Amino Transf (AST/SGOT)) 16 5-34 [facility] CenterAlanine Aminotransferase (ALT/SGPT) 2018-02-15 12:24:00* Test Item Value Reference Range Interpretation Comments Alanine Aminotransferase (ALT/SGPT) (test code = 1742-6) 9 0-55 [facility] CenterTotal Xthutqb9553-92-36 12:24:00* Test Item Value Reference Range Interpretation Comments Total Protein (test code = 2885-2) 6.6 6.5-8.1 [facility] CenterAlbumin2018-05-17 12:24:00* Test Item Value Reference Range Interpretation Comments Albumin (test code = 1751-7) 3.1 3.5-5.0 L [facility] CenterGlobulin2018-05-17 12:24:00* Test Item Value Reference Range Interpretation Comments Globulin (test code = 30468-5) 3.5 2.3-3.5 [facility] CenterAlbumin/Globulin Dexwd1924-44-77 12:24:00 * Test Item Value Reference Range Interpretation Comments Albumin/Globulin Ratio (test code = 1759-0) 0.9 0.8-2.0 [facility] CenterAlkaline Hevtefejntx9465-07-43 12:24:00* Test Item Value Reference Range Interpretation Comments Alkaline Phosphatase (test code = 6768-6) 72 40-150 [facility] CenterProthrombin Ynvq9094-78-73 12:16:00* Test Item Value Reference Range Interpretation Comments Prothrombin Time (test code = 5902-2) 12.4 11.9-14.5 [facility] CenterProthromb Time International Ratio 2018-02-15 12:16:00* Test Item Value Reference Range Interpretation Comments Prothromb Time International Ratio (test code = 6301-6) 1.00 Oral Anticoagulant Therapy INR Values:1. Low Intensity Therapy 1.5 - 2.02 . Moderate Intensity Therapy 2.0 - 3.03. High Intensity Therapy(1) 2.5 - 3. 54. High Intensity Therapy(2) 3.0 - 4.05. Panic Value INR > 5.0 [facility] CenterActivated Partial Thromboplast Time 2018-02-15 12:16:00* Test Item Value Reference Range Interpretation Comments Activated Partial Thromboplast Time (test code = 29824-0) 24.2 23.8-35.5 [facility] CenterProthrombin Wfcs7782-38-75 12:16:00* Test Item Value Reference Range Interpretation Comments Prothrombin Time (test code = 5902-2) 12.4 11.9-14.5 [facility] CenterProthromb Time International Ratio 2018-02-15 12:16:00* Test Item Value Reference Range Interpretation Comments Prothromb Time International Ratio (test code = 6301-6) 1.00 Oral Anticoagulant Therapy INR Values:1. Low Intensity Therapy 1.5 - 2.02 . Moderate Intensity Therapy 2.0 - 3.03. High Intensity Therapy(1) 2.5 - 3. 54. High Intensity Therapy(2) 3.0 - 4.05. Panic Value INR > 5.0 [facility] CenterActivated Partial Thromboplast Time 2018-02-15 12:16:00* Test Item Value Reference Range Interpretation Comments Activated Partial Thromboplast Time (test code = 67241-6) 24.2 23.8-35.5 [facility] CenterProthrombin Xvwb0326-43-79 12:16:00* Test Item Value Reference Range Interpretation Comments Prothrombin Time (test code = 5902-2) 12.4 11.9-14.5 [facility] CenterProthromb Time International Ratio 2018-02-15 12:16:00* Test Item Value Reference Range Interpretation Comments Prothromb Time International Ratio (test code = 6301-6) 1.00 Oral Anticoagulant Therapy INR Values:1. Low Intensity Therapy 1.5 - 2.02 . Moderate Intensity Therapy 2.0 - 3.03. High Intensity Therapy(1) 2.5 - 3. 54. High Intensity Therapy(2) 3.0 - 4.05. Panic Value INR > 5.0 [facility] CenterActivated Partial Thromboplast Time 2018-02-15 12:16:00* Test Item Value Reference Range Interpretation Comments Activated Partial Thromboplast Time (test code = 97214-0) 24.2 23.8-35.5 [facility] CenterProthrombin Iupd8900-73-52 12:16:00* Test Item Value Reference Range Interpretation Comments Prothrombin Time (test code = 5902-2) 12.4 11.9-14.5 [facility] CenterProthromb Time International Ratio 2018-02-15 12:16:00* Test Item Value Reference Range Interpretation Comments Prothromb Time International Ratio (test code = 6301-6) 1.00 Oral Anticoagulant Therapy INR Values:1. Low Intensity Therapy 1.5 - 2.02 . Moderate Intensity Therapy 2.0 - 3.03. High Intensity Therapy(1) 2.5 - 3. 54. High Intensity Therapy(2) 3.0 - 4.05. Panic Value INR > 5.0 [facility] CenterActivated Partial Thromboplast Time 2018-02-15 12:16:00* Test Item Value Reference Range Interpretation Comments Activated Partial Thromboplast Time (test code = 03620-7) 24.2 23.8-35.5 [facility] CenterWhite Blood Lgltb8398-78-61 12:08:00* Test Item Value Reference Range Interpretation Comments White Blood Count (test code = 6690-2) 9.14 4.8-10.8 [facility] CenterRed Blood Ytkmr3976-98-22 12:08:00* Test Item Value Reference Range Interpretation Comments Red Blood Count (test code = 789-8) 3.97 3.6-5.1 [facility] CenterHemoglobin2018-05-17 12:08:00* Test Item Value Reference Range Interpretation Comments Hemoglobin (test code = 67447-9) 12.3 12.0-16.0 [facility] CenterHematocrit2018-05-17 12:08:00* Test Item Value Reference Range Interpretation Comments Hematocrit (test code = 4544-3) 37.3 34.2-44.1 [facility] CenterMean Corpuscular Zcfwxa7150-16-74 12:08:00* Test Item Value Reference Range Interpretation Comments Mean Corpuscular Volume (test code = 787-2) 94.0 81-99 [facility] CenterMean Corpuscular Ioicpahspg7621-79-58 12:08:00* Test Item Value Reference Range Interpretation Comments Mean Corpuscular Hemoglobin (test code = 785-6) 31.0 28-32 [facility] CenterMean Corpuscular Hemoglobin Concent 2018-02-15 12:08:00* Test Item Value Reference Range Interpretation Comments Mean Corpuscular Hemoglobin Concent (test code = 786-4) 33.0 31-35 [facility] CenterRed Cell Distribution Azyzj3598-78-00 12:08:00* Test Item Value Reference Range Interpretation Comments Red Cell Distribution Width (test code = 74724-1) 13.1 11.7 -14.4 [facility] CenterPlatelet Trvfl8896-31-31 12:08:00* Test Item Value Reference Range Interpretation Comments Platelet Count (test code = 777-3) 333 140-360 [facility] CenterNeutrophils (%) (Auto)2018-02-15 12:08:00 * Test Item Value Reference Range Interpretation Comments Neutrophils (%) (Auto) (test code = 07066-0) 74.8 38.7-80.0 [facility] CenterLymphocytes (%) (Auto)2018-02-15 12:08:00 * Test Item Value Reference Range Interpretation Comments Lymphocytes (%) (Auto) (test code = 736-9) 15.0 18.0-39.1 L [facility] CenterMonocytes (%) (Auto)2018-02-15 12:08:00* Test Item Value Reference Range Interpretation Comments Monocytes (%) (Auto) (test code = 5905-5) 8.3 4.4-11.3 [facility] CenterEosinophils (%) (Auto)2018-02-15 12:08:00 * Test Item Value Reference Range Interpretation Comments Eosinophils (%) (Auto) (test code = 713-8) 0.7 0.0-6.0 [facility] CenterBasophils (%) (Auto)2018-02-15 12:08:00* Test Item Value Reference Range Interpretation Comments Basophils (%) (Auto) (test code = 706-2) 0.8 0.0-1.0 [facility] CenterIM GRANULOCYTES %2018-02-15 12:08:00* Test Item Value Reference Range Interpretation Comments IM GRANULOCYTES % (test code = IM GRANULOCYTES %) 0.4 0.0- 1.0 [facility] CenterNeutrophils # (Auto)2018-02-15 12:08:00* Test Item Value Reference Range Interpretation Comments Neutrophils # (Auto) (test code = 751-8) 6.8 2.1-6.9 [facility] CenterLymphocytes # (Auto)2018-02-15 12:08:00* Test Item Value Reference Range Interpretation Comments Lymphocytes # (Auto) (test code = 85732-0) 1.4 1.0-3.2 [facility] CenterMonocytes # (Auto)2018-02-15 12:08:00* Test Item Value Reference Range Interpretation Comments Monocytes # (Auto) (test code = 742-7) 0.8 0.2-0.8 [facility] CenterEosinophils # (Auto)2018-02-15 12:08:00* Test Item Value Reference Range Interpretation Comments Eosinophils # (Auto) (test code = 711-2) 0.1 0.0-0.4 [facility] CenterBasophils # (Auto)2018-02-15 12:08:00* Test Item Value Reference Range Interpretation Comments Basophils # (Auto) (test code = 704-7) 0.1 0.0-0.1 [facility] CenterAbsolute Immature Granulocyte (auto 2018-02-15 12:08:00* Test Item Value Reference Range Interpretation Comments Absolute Immature Granulocyte (auto (idania t code = Absolute Immature Granulocyte (auto) 0.04 0-0.1 [facility] CenterWhite Blood Bdmsv9807-50-87 12:08:00* Test Item Value Reference Range Interpretation Comments White Blood Count (test code = 6690-2) 9.14 4.8-10.8 [facility] CenterRed Blood Ynykx1488-04-00 12:08:00* Test Item Value Reference Range Interpretation Comments Red Blood Count (test code = 789-8) 3.97 3.6-5.1 [facility] CenterHemoglobin2018-05-17 12:08:00* Test Item Value Reference Range Interpretation Comments Hemoglobin (test code = 26497-0) 12.3 12.0-16.0 [facility] CenterHematocrit2018-05-17 12:08:00* Test Item Value Reference Range Interpretation Comments Hematocrit (test code = 4544-3) 37.3 34.2-44.1 [facility] CenterMean Corpuscular Ixapar0038-84-69 12:08:00* Test Item Value Reference Range Interpretation Comments Mean Corpuscular Volume (test code = 787-2) 94.0 81-99 [facility] CenterMean Corpuscular Owsutckvjq4468-64-91 12:08:00* Test Item Value Reference Range Interpretation Comments Mean Corpuscular Hemoglobin (test code = 785-6) 31.0 28-32 [facility] CenterMean Corpuscular Hemoglobin Concent 2018-02-15 12:08:00* Test Item Value Reference Range Interpretation Comments Mean Corpuscular Hemoglobin Concent (test code = 786-4) 33.0 31-35 [facility] CenterRed Cell Distribution Duijc9643-52-20 12:08:00* Test Item Value Reference Range Interpretation Comments Red Cell Distribution Width (test code = 75738-0) 13.1 11.7 -14.4 [facility] CenterPlatelet Bzvwx8407-66-32 12:08:00* Test Item Value Reference Range Interpretation Comments Platelet Count (test code = 777-3) 333 140-360 [facility] CenterNeutrophils (%) (Auto)2018-02-15 12:08:00 * Test Item Value Reference Range Interpretation Comments Neutrophils (%) (Auto) (test code = 06325-9) 74.8 38.7-80.0 [facility] CenterLymphocytes (%) (Auto)2018-02-15 12:08:00 * Test Item Value Reference Range Interpretation Comments Lymphocytes (%) (Auto) (test code = 736-9) 15.0 18.0-39.1 L [facility] CenterMonocytes (%) (Auto)2018-02-15 12:08:00* Test Item Value Reference Range Interpretation Comments Monocytes (%) (Auto) (test code = 5905-5) 8.3 4.4-11.3 [facility] CenterEosinophils (%) (Auto)2018-02-15 12:08:00 * Test Item Value Reference Range Interpretation Comments Eosinophils (%) (Auto) (test code = 713-8) 0.7 0.0-6.0 [facility] CenterBasophils (%) (Auto)2018-02-15 12:08:00* Test Item Value Reference Range Interpretation Comments Basophils (%) (Auto) (test code = 706-2) 0.8 0.0-1.0 [facility] CenterIM GRANULOCYTES %2018-02-15 12:08:00* Test Item Value Reference Range Interpretation Comments IM GRANULOCYTES % (test code = IM GRANULOCYTES %) 0.4 0.0- 1.0 [facility] CenterNeutrophils # (Auto)2018-02-15 12:08:00* Test Item Value Reference Range Interpretation Comments Neutrophils # (Auto) (test code = 751-8) 6.8 2.1-6.9 [facility] CenterLymphocytes # (Auto)2018-02-15 12:08:00* Test Item Value Reference Range Interpretation Comments Lymphocytes # (Auto) (test code = 50623-0) 1.4 1.0-3.2 [facility] CenterMonocytes # (Auto)2018-02-15 12:08:00* Test Item Value Reference Range Interpretation Comments Monocytes # (Auto) (test code = 742-7) 0.8 0.2-0.8 [facility] CenterEosinophils # (Auto)2018-02-15 12:08:00* Test Item Value Reference Range Interpretation Comments Eosinophils # (Auto) (test code = 711-2) 0.1 0.0-0.4 [facility] CenterBasophils # (Auto)2018-02-15 12:08:00* Test Item Value Reference Range Interpretation Comments Basophils # (Auto) (test code = 704-7) 0.1 0.0-0.1 [facility] CenterAbsolute Immature Granulocyte (auto 2018-02-15 12:08:00* Test Item Value Reference Range Interpretation Comments Absolute Immature Granulocyte (auto (idania t code = Absolute Immature Granulocyte (auto) 0.04 0-0.1 [facility] CenterWhite Blood Jbbvu7645-82-87 12:08:00* Test Item Value Reference Range Interpretation Comments White Blood Count (test code = 6690-2) 9.14 4.8-10.8 [facility] CenterRed Blood Pauso0917-95-19 12:08:00* Test Item Value Reference Range Interpretation Comments Red Blood Count (test code = 789-8) 3.97 3.6-5.1 [facility] CenterHemoglobin2018-05-17 12:08:00* Test Item Value Reference Range Interpretation Comments Hemoglobin (test code = 89977-4) 12.3 12.0-16.0 [facility] CenterHematocrit2018-05-17 12:08:00* Test Item Value Reference Range Interpretation Comments Hematocrit (test code = 4544-3) 37.3 34.2-44.1 [facility] CenterMean Corpuscular Lffhga0897-45-79 12:08:00* Test Item Value Reference Range Interpretation Comments Mean Corpuscular Volume (test code = 787-2) 94.0 81-99 [facility] CenterMean Corpuscular Sdredzzbvy2307-60-17 12:08:00* Test Item Value Reference Range Interpretation Comments Mean Corpuscular Hemoglobin (test code = 785-6) 31.0 28-32 [facility] CenterMean Corpuscular Hemoglobin Concent 2018-02-15 12:08:00* Test Item Value Reference Range Interpretation Comments Mean Corpuscular Hemoglobin Concent (test code = 786-4) 33.0 31-35 [facility] CenterRed Cell Distribution Rokqs9591-24-65 12:08:00* Test Item Value Reference Range Interpretation Comments Red Cell Distribution Width (test code = 82604-9) 13.1 11.7 -14.4 [facility] CenterPlatelet Mzfss5341-23-90 12:08:00* Test Item Value Reference Range Interpretation Comments Platelet Count (test code = 777-3) 333 140-360 [facility] CenterNeutrophils (%) (Auto)2018-02-15 12:08:00 * Test Item Value Reference Range Interpretation Comments Neutrophils (%) (Auto) (test code = 68604-2) 74.8 38.7-80.0 [facility] CenterLymphocytes (%) (Auto)2018-02-15 12:08:00 * Test Item Value Reference Range Interpretation Comments Lymphocytes (%) (Auto) (test code = 736-9) 15.0 18.0-39.1 L [facility] CenterMonocytes (%) (Auto)2018-02-15 12:08:00* Test Item Value Reference Range Interpretation Comments Monocytes (%) (Auto) (test code = 5905-5) 8.3 4.4-11.3 [facility] CenterEosinophils (%) (Auto)2018-02-15 12:08:00 * Test Item Value Reference Range Interpretation Comments Eosinophils (%) (Auto) (test code = 713-8) 0.7 0.0-6.0 [facility] CenterBasophils (%) (Auto)2018-02-15 12:08:00* Test Item Value Reference Range Interpretation Comments Basophils (%) (Auto) (test code = 706-2) 0.8 0.0-1.0 [facility] CenterIM GRANULOCYTES %2018-02-15 12:08:00* Test Item Value Reference Range Interpretation Comments IM GRANULOCYTES % (test code = IM GRANULOCYTES %) 0.4 0.0- 1.0 [facility] CenterNeutrophils # (Auto)2018-02-15 12:08:00* Test Item Value Reference Range Interpretation Comments Neutrophils # (Auto) (test code = 751-8) 6.8 2.1-6.9 [facility] CenterLymphocytes # (Auto)2018-02-15 12:08:00* Test Item Value Reference Range Interpretation Comments Lymphocytes # (Auto) (test code = 04917-7) 1.4 1.0-3.2 [facility] CenterMonocytes # (Auto)2018-02-15 12:08:00* Test Item Value Reference Range Interpretation Comments Monocytes # (Auto) (test code = 742-7) 0.8 0.2-0.8 [facility] CenterEosinophils # (Auto)2018-02-15 12:08:00* Test Item Value Reference Range Interpretation Comments Eosinophils # (Auto) (test code = 711-2) 0.1 0.0-0.4 [facility] CenterBasophils # (Auto)2018-02-15 12:08:00* Test Item Value Reference Range Interpretation Comments Basophils # (Auto) (test code = 704-7) 0.1 0.0-0.1 [facility] CenterAbsolute Immature Granulocyte (auto 2018-02-15 12:08:00* Test Item Value Reference Range Interpretation Comments Absolute Immature Granulocyte (auto (idania t code = Absolute Immature Granulocyte (auto) 0.04 0-0.1 [facility] CenterWhite Blood Nencv9974-12-79 12:08:00* Test Item Value Reference Range Interpretation Comments White Blood Count (test code = 6690-2) 9.14 4.8-10.8 [facility] CenterRed Blood Khjrf5615-78-42 12:08:00* Test Item Value Reference Range Interpretation Comments Red Blood Count (test code = 789-8) 3.97 3.6-5.1 [facility] CenterHemoglobin2018-05-17 12:08:00* Test Item Value Reference Range Interpretation Comments Hemoglobin (test code = 23341-8) 12.3 12.0-16.0 [facility] CenterHematocrit2018-05-17 12:08:00* Test Item Value Reference Range Interpretation Comments Hematocrit (test code = 4544-3) 37.3 34.2-44.1 [facility] CenterMean Corpuscular Pfszpk2410-87-72 12:08:00* Test Item Value Reference Range Interpretation Comments Mean Corpuscular Volume (test code = 787-2) 94.0 81-99 [facility] CenterMean Corpuscular Wxtzpaitbi6801-88-30 12:08:00* Test Item Value Reference Range Interpretation Comments Mean Corpuscular Hemoglobin (test code = 785-6) 31.0 28-32 [facility] CenterMean Corpuscular Hemoglobin Concent 2018-02-15 12:08:00* Test Item Value Reference Range Interpretation Comments Mean Corpuscular Hemoglobin Concent (test code = 786-4) 33.0 31-35 [facility] CenterRed Cell Distribution Dcnpk6412-19-94 12:08:00* Test Item Value Reference Range Interpretation Comments Red Cell Distribution Width (test code = 42480-3) 13.1 11.7 -14.4 [facility] CenterPlatelet Nwuzs9937-79-68 12:08:00* Test Item Value Reference Range Interpretation Comments Platelet Count (test code = 777-3) 333 140-360 [facility] CenterNeutrophils (%) (Auto)2018-02-15 12:08:00 * Test Item Value Reference Range Interpretation Comments Neutrophils (%) (Auto) (test code = 34361-9) 74.8 38.7-80.0 [facility] CenterLymphocytes (%) (Auto)2018-02-15 12:08:00 * Test Item Value Reference Range Interpretation Comments Lymphocytes (%) (Auto) (test code = 736-9) 15.0 18.0-39.1 L [facility] CenterMonocytes (%) (Auto)2018-02-15 12:08:00* Test Item Value Reference Range Interpretation Comments Monocytes (%) (Auto) (test code = 5905-5) 8.3 4.4-11.3 [facility] CenterEosinophils (%) (Auto)2018-02-15 12:08:00 * Test Item Value Reference Range Interpretation Comments Eosinophils (%) (Auto) (test code = 713-8) 0.7 0.0-6.0 [facility] CenterBasophils (%) (Auto)2018-02-15 12:08:00* Test Item Value Reference Range Interpretation Comments Basophils (%) (Auto) (test code = 706-2) 0.8 0.0-1.0 [facility] CenterIM GRANULOCYTES %2018-02-15 12:08:00* Test Item Value Reference Range Interpretation Comments IM GRANULOCYTES % (test code = IM GRANULOCYTES %) 0.4 0.0- 1.0 [facility] CenterNeutrophils # (Auto)2018-02-15 12:08:00* Test Item Value Reference Range Interpretation Comments Neutrophils # (Auto) (test code = 751-8) 6.8 2.1-6.9 [facility] CenterLymphocytes # (Auto)2018-02-15 12:08:00* Test Item Value Reference Range Interpretation Comments Lymphocytes # (Auto) (test code = 05416-9) 1.4 1.0-3.2 [facility] CenterMonocytes # (Auto)2018-02-15 12:08:00* Test Item Value Reference Range Interpretation Comments Monocytes # (Auto) (test code = 742-7) 0.8 0.2-0.8 [facility] CenterEosinophils # (Auto)2018-02-15 12:08:00* Test Item Value Reference Range Interpretation Comments Eosinophils # (Auto) (test code = 711-2) 0.1 0.0-0.4 [facility] CenterBasophils # (Auto)2018-02-15 12:08:00* Test Item Value Reference Range Interpretation Comments Basophils # (Auto) (test code = 704-7) 0.1 0.0-0.1 [facility] CenterAbsolute Immature Granulocyte (auto 2018-02-15 12:08:00* Test Item Value Reference Range Interpretation Comments Absolute Immature Granulocyte (auto (idania t code = Absolute Immature Granulocyte (auto) 0.04 0-0.1 [facility] CenterActivated Clotting Hghg0613-71-25 10:15:00* Test Item Value Reference Range Interpretation Comments Activated Clotting Time (test code = [id number]) 119 Line pull <170 sec or baselinePeripheral and Neuroradiology <400 secAngioplasty 220 secParis Regional Medical CenterActivated Clotting Cxco7112-21-36 10:15:00* Test Item Value Reference Range Interpretation Comments Activated Clotting Time (test code = PJA6670) 119 Line pull <170 sec or baselinePeripheral and Neuroradiology <400 secAngioplasty 220 secParis Regional Medical CenterActivated Clotting Lqfz3033-87-34 10:15:00* Test Item Value Reference Range Interpretation Comments Activated Clotting Time (test code = DTZ4462) 119 Line pull <170 sec or baselinePeripheral and Neuroradiology <400 secAngioplasty 220 secParis Regional Medical CenterActivated Clotting Guba1043-74-71 10:15:00* Test Item Value Reference Range Interpretation Comments Activated Clotting Time (test code = HPX7997) 119 Line pull <170 sec or baselinePeripheral and Neuroradiology <400 secAngioplasty 220 secParis [facility] Medical CenterTriglycerides Mgkwb0024-58-28 14:04:00* Test Item Value Reference Range Interpretation Comments Triglycerides Level (test code = 2571-8) 182 0-149 H [facility] CenterCholesterol Ijmws4026-69-34 14:04:00* Test Item Value Reference Range Interpretation Comments Cholesterol Level (test code = 2093-3) 159 0-199 Less than 200 mg/dL Low Ovtx285 - 239 mg/dL Borderline Ffvp998 m g/dl and greater High Risk [facility] CenterLDL Stsbmppfkqy6334-50-56 14:04:00* Test Item Value Reference Range Interpretation Comments LDL Cholesterol (test code = 2089-1) 86 60-130 [facility] CenterHDL Drqnxvmivkc8266-14-99 14:04:00* Test Item Value Reference Range Interpretation Comments HDL Cholesterol (test code = 2085-9) 37 40-60 L [facility] CenterCholesterol/HDL Mkajt3233-47-36 14:04:00 * Test Item Value Reference Range Interpretation Comments Cholesterol/HDL Ratio (test code = 9830-1) 4.3 3.0-3.6 H [facility] CenterTriglycerides Jikuo4865-19-27 14:04:00* Test Item Value Reference Range Interpretation Comments Triglycerides Level (test code = 2571-8) 182 0-149 H [facility] CenterCholesterol Rpdfp9037-60-16 14:04:00* Test Item Value Reference Range Interpretation Comments Cholesterol Level (test code = 2093-3) 159 0-199 Less than 200 mg/dL Low Eqge432 - 239 mg/dL Borderline Rlad019 m g/dl and greater High Risk [facility] Dtblbsyfpnw1976-10-47 14:04:00* Test Item Value Reference Range Interpretation Comments LDL Cholesterol (test code = 2089-1) 86 60-130 [facility] Mygldlzswcg4848-59-75 14:04:00* Test Item Value Reference Range Interpretation Comments HDL Cholesterol (test code = 2085-9) 37 40-60 L [facility] CenterCholesterol/HDL Dbqeg1700-49-13 14:04:00 * Test Item Value Reference Range Interpretation Comments Cholesterol/HDL Ratio (test code = 9830-1) 4.3 3.0-3.6 H [facility] CenterTriglycerides Wsdht8663-02-37 14:04:00* Test Item Value Reference Range Interpretation Comments Triglycerides Level (test code = 2571-8) 182 0-149 H [facility] CenterCholesterol Grodb8674-48-52 14:04:00* Test Item Value Reference Range Interpretation Comments Cholesterol Level (test code = 2093-3) 159 0-199 Less than 200 mg/dL Low Vinb576 - 239 mg/dL Borderline Lhff153 m g/dl and greater High Risk [facility] CenterLDL Pqkcwebffjz2611-58-75 14:04:00* Test Item Value Reference Range Interpretation Comments LDL Cholesterol (test code = 2089-1) 86 60-130 [facility] Hdzkicmtdib0830-06-55 14:04:00* Test Item Value Reference Range Interpretation Comments HDL Cholesterol (test code = 2085-9) 37 40-60 L [facility] CenterCholesterol/HDL Xkfcq0420-53-22 14:04:00 * Test Item Value Reference Range Interpretation Comments Cholesterol/HDL Ratio (test code = 9830-1) 4.3 3.0-3.6 H [facility] CenterTriglycerides Yiter5077-91-03 14:04:00* Test Item Value Reference Range Interpretation Comments Triglycerides Level (test code = 2571-8) 182 0-149 H [facility] CenterCholesterol Igkzr3952-38-62 14:04:00* Test Item Value Reference Range Interpretation Comments Cholesterol Level (test code = 2093-3) 159 0-199 Less than 200 mg/dL Low Mypc542 - 239 mg/dL Borderline Llmk911 m g/dl and greater High Risk [facility] Rezbkaofykz9328-65-98 14:04:00* Test Item Value Reference Range Interpretation Comments LDL Cholesterol (test code = 2089-1) 86 60-130 [facility] Mtzjaefttkv7259-41-07 14:04:00* Test Item Value Reference Range Interpretation Comments HDL Cholesterol (test code = 2085-9) 37 40-60 L [facility] CenterCholesterol/HDL Skyzi7521-29-24 14:04:00 * Test Item Value Reference Range Interpretation Comments Cholesterol/HDL Ratio (test code = 9830-1) 4.3 3.0-3.6 H [facility] CenterTriglycerides Vuslv7076-26-66 15:12:00* Test Item Value Reference Range Interpretation Comments Triglycerides Level (test code = 2571-8) 143 0-149 [facility] CenterCholesterol Oanae6690-38-02 15:12:00* Test Item Value Reference Range Interpretation Comments Cholesterol Level (test code = 2093-3) 130 0-199 Less than 200 mg/dL Low Rouh595 - 239 mg/dL Borderline Jmfj174 m g/dl and greater High Risk [facility] CenterLDL Vjcceebulef5344-35-92 15:12:00* Test Item Value Reference Range Interpretation Comments LDL Cholesterol (test code = 2089-1) 69 60-130 [facility] CenterHDL Xiohkgcwwhy6967-56-22 15:12:00* Test Item Value Reference Range Interpretation Comments HDL Cholesterol (test code = 2085-9) 32 40-60 L [facility] CenterCholesterol/HDL Zobhz6149-21-28 15:12:00 * Test Item Value Reference Range Interpretation Comments Cholesterol/HDL Ratio (test code = 9830-1) 4.1 3.0-3.6 H [facility] Bovnc0157-47-99 07:25:00* Test Item Value Reference Range Interpretation Comments Magnesium Level (test code = 74350-8) 1.3 1.3-2.1 [facility] Mbqzj4938-49-12 07:25:00* Test Item Value Reference Range Interpretation Comments Magnesium Level (test code = 38396-0) 1.3 1.3-2.1 [facility] Gyxrp7089-78-46 07:25:00* Test Item Value Reference Range Interpretation Comments Magnesium Level (test code = 45510-6) 1.3 1.3-2.1 [facility] Ikfmt8076-28-16 07:25:00* Test Item Value Reference Range Interpretation Comments Magnesium Level (test code = 33370-3) 1.3 1.3-2.1 [facility] Djekt1710-36-74 07:25:00* Test Item Value Reference Range Interpretation Comments Magnesium Level (test code = 52141-6) 1.3 1.3-2.1 [facility] Zpphj9547-92-45 07:16:00* Test Item Value Reference Range Interpretation Comments Sodium Level (test code = 2951-2) 141 136-145 [facility] CenterPotassium Kxnzo2956-28-64 07:16:00* Test Item Value Reference Range Interpretation Comments Potassium Level (test code = 2823-3) 4.3 3.5-5.1 [facility] CenterChloride Nfrjo7287-50-66 07:16:00* Test Item Value Reference Range Interpretation Comments Chloride Level (test code = 2075-0) 105 98-107 [facility] CenterCarbon Dioxide Hmqcq3680-25-06 07:16:00* Test Item Value Reference Range Interpretation Comments Carbon Dioxide Level (test code = 2028-9) 27 22-29 [facility] CenterAnion Fac1799-98-25 07:16:00* Test Item Value Reference Range Interpretation Comments Anion Gap (test code = 33268-7) 13.3 8-16 [facility] CenterBlood Urea Gxarhpsv2393-08-29 07:16:00* Test Item Value Reference Range Interpretation Comments Blood Urea Nitrogen (test code = 3094-0) 31 7-26 H [facility] CenterCreatinine2018-05-08 07:16:00* Test Item Value Reference Range Interpretation Comments Creatinine (test code = 2160-0) 1.53 0.57-1.11 H [facility] CenterBUN/Creatinine Nadyh6626-00-46 07:16:00* Test Item Value Reference Range Interpretation Comments BUN/Creatinine Ratio (test code = 3097-3) 20 6-25 [facility] CenterEstimat Glomerular Filtration Rate 2018-02-06 07:16:00* Test Item Value Reference Range Interpretation Comments Estimat Glomerular Filtration Rate (test code = 03190-3) 33 >60 L Ranges were taken from the National Kidney Disease Education Program and the [place] [facility] [employer] literature.Reference ranges:60 or greater: Albdmu17-42 ( for 3 consecutive months): Chronic kidney disease 15 or less: Kidney failureParis Regional Medical CenterGlucose Icigf5875-76-35 07:16:00* Test Item Value Reference Range Interpretation Comments Glucose Level (test code = BRX5285) 88 74-118 [facility] CenterCalcium Erubl1250-21-01 07:16:00* Test Item Value Reference Range Interpretation Comments Calcium Level (test code = 45266-9) 9.9 8.4-10.2 [facility] CenterTotal Mdvoeosqu2159-18-49 07:16:00* Test Item Value Reference Range Interpretation Comments Total Bilirubin (test code = 1975-2) 0.5 0.2-1.2 [facility] CenterAspartate Amino Transf (AST/SGOT) 2018-02-06 07:16:00* Test Item Value Reference Range Interpretation Comments Aspartate Amino Transf (AST/SGOT) (test code = Aspartate Amino Transf (AST/SGOT)) 14 5-34 [facility] CenterAlanine Aminotransferase (ALT/SGPT) 2018-02-06 07:16:00* Test Item Value Reference Range Interpretation Comments Alanine Aminotransferase (ALT/SGPT) (test code = 1742-6) 8 0-55 [facility] CenterTotal Bjjwrna4948-73-84 07:16:00* Test Item Value Reference Range Interpretation Comments Total Protein (test code = 2885-2) 5.6 6.5-8.1 L [facility] CenterAlbumin2018-05-08 07:16:00* Test Item Value Reference Range Interpretation Comments Albumin (test code = 1751-7) 2.6 3.5-5.0 L [facility] CenterGlobulin2018-05-08 07:16:00* Test Item Value Reference Range Interpretation Comments Globulin (test code = 65329-2) 3.0 2.3-3.5 [facility] CenterAlbumin/Globulin Gjuay2752-40-19 07:16:00 * Test Item Value Reference Range Interpretation Comments Albumin/Globulin Ratio (test code = 1759-0) 0.9 0.8-2.0 [facility] CenterAlkaline Mssmkhskjau5849-64-67 07:16:00* Test Item Value Reference Range Interpretation Comments Alkaline Phosphatase (test code = 6768-6) 59 40-150 [facility] CenterWhite Blood Hfzoi5517-88-03 07:03:00* Test Item Value Reference Range Interpretation Comments White Blood Count (test code = 6690-2) 8.55 4.8-10.8 [facility] CenterRed Blood Jpsrq7457-38-53 07:03:00* Test Item Value Reference Range Interpretation Comments Red Blood Count (test code = 789-8) 3.86 3.6-5.1 [facility] CenterHemoglobin2018-05-08 07:03:00* Test Item Value Reference Range Interpretation Comments Hemoglobin (test code = 67228-8) 11.9 12.0-16.0 L [facility] CenterHematocrit2018-05-08 07:03:00* Test Item Value Reference Range Interpretation Comments Hematocrit (test code = 4544-3) 37.3 34.2-44.1 [facility] CenterMean Corpuscular Krrfhm8487-76-63 07:03:00* Test Item Value Reference Range Interpretation Comments Mean Corpuscular Volume (test code = 787-2) 96.6 81-99 [facility] CenterMean Corpuscular Ncswpvwpyz8276-58-13 07:03:00* Test Item Value Reference Range Interpretation Comments Mean Corpuscular Hemoglobin (test code = 785-6) 30.8 28-32 [facility] CenterMean Corpuscular Hemoglobin Concent 2018-02-06 07:03:00* Test Item Value Reference Range Interpretation Comments Mean Corpuscular Hemoglobin Concent (test code = 786-4) 31.9 31-35 [facility] CenterRed Cell Distribution Hwtcb1793-51-04 07:03:00* Test Item Value Reference Range Interpretation Comments Red Cell Distribution Width (test code = 72053-9) 13.4 11.7 -14.4 [facility] CenterPlatelet Pkwyj4409-85-29 07:03:00* Test Item Value Reference Range Interpretation Comments Platelet Count (test code = 777-3) 283 140-360 [facility] CenterNeutrophils (%) (Auto)2018-02-06 07:03:00 * Test Item Value Reference Range Interpretation Comments Neutrophils (%) (Auto) (test code = 33361-1) 67.4 38.7-80.0 [facility] CenterLymphocytes (%) (Auto)2018-02-06 07:03:00 * Test Item Value Reference Range Interpretation Comments Lymphocytes (%) (Auto) (test code = 736-9) 20.0 18.0-39.1 [facility] CenterMonocytes (%) (Auto)2018-02-06 07:03:00* Test Item Value Reference Range Interpretation Comments Monocytes (%) (Auto) (test code = 5905-5) 11.1 4.4-11.3 [facility] CenterEosinophils (%) (Auto)2018-02-06 07:03:00 * Test Item Value Reference Range Interpretation Comments Eosinophils (%) (Auto) (test code = 713-8) 0.2 0.0-6.0 [facility] CenterBasophils (%) (Auto)2018-02-06 07:03:00* Test Item Value Reference Range Interpretation Comments Basophils (%) (Auto) (test code = 706-2) 0.7 0.0-1.0 [facility] CenterIM GRANULOCYTES %2018-02-06 07:03:00* Test Item Value Reference Range Interpretation Comments IM GRANULOCYTES % (test code = IM GRANULOCYTES %) 0.6 0.0- 1.0 [facility] CenterNeutrophils # (Auto)2018-02-06 07:03:00* Test Item Value Reference Range Interpretation Comments Neutrophils # (Auto) (test code = 751-8) 5.8 2.1-6.9 [facility] CenterLymphocytes # (Auto)2018-02-06 07:03:00* Test Item Value Reference Range Interpretation Comments Lymphocytes # (Auto) (test code = 83276-0) 1.7 1.0-3.2 [facility] CenterMonocytes # (Auto)2018-02-06 07:03:00* Test Item Value Reference Range Interpretation Comments Monocytes # (Auto) (test code = 742-7) 1.0 0.2-0.8 H [facility] CenterEosinophils # (Auto)2018-02-06 07:03:00* Test Item Value Reference Range Interpretation Comments Eosinophils # (Auto) (test code = 711-2) 0.0 0.0-0.4 [facility] CenterBasophils # (Auto)2018-02-06 07:03:00* Test Item Value Reference Range Interpretation Comments Basophils # (Auto) (test code = 704-7) 0.1 0.0-0.1 [facility] CenterAbsolute Immature Granulocyte (auto 2018-02-06 07:03:00* Test Item Value Reference Range Interpretation Comments Absolute Immature Granulocyte (auto (idania t code = Absolute Immature Granulocyte (auto) 0.05 0-0.1 [facility] CenterUrine FFW4716-53-70 18:48:00* Test Item Value Reference Range Interpretation Comments Urine WBC (test code = 5821-4) NONE 0-5 [facility] HXR6636-97-33 18:48:00* Test Item Value Reference Range Interpretation Comments Urine RBC (test code = 13510-8) NONE 0-5 [facility] Yvxgfwzl3361-73-20 18:48:00* Test Item Value Reference Range Interpretation Comments Urine Bacteria (test code = 67161-1) MODERATE NONE H [facility] CenterUrine Epithelial Sghmv3316-99-03 18:48:00 * Test Item Value Reference Range Interpretation Comments Urine Epithelial Cells (test code = 83190-5) FEW NONE [facility] CenterUrine Sicme8422-15-12 18:48:00* Test Item Value Reference Range Interpretation Comments Urine Mucus (test code = 8247-9) MODERATE RARE H [facility] AKC4238-12-91 18:48:00* Test Item Value Reference Range Interpretation Comments Urine WBC (test code = 5821-4) NONE 0-5 [facility] CenterUrine JVG5299-90-27 18:48:00* Test Item Value Reference Range Interpretation Comments Urine RBC (test code = 79844-2) NONE 0-5 [facility] Xzeoqvam0987-30-94 18:48:00* Test Item Value Reference Range Interpretation Comments Urine Bacteria (test code = 80456-1) MODERATE NONE H [facility] CenterUrine Epithelial Elxun6262-04-12 18:48:00 * Test Item Value Reference Range Interpretation Comments Urine Epithelial Cells (test code = 97063-9) FEW NONE [facility] Lovkg9200-60-20 18:48:00* Test Item Value Reference Range Interpretation Comments Urine Mucus (test code = 8247-9) MODERATE RARE H [facility] ZOL0975-77-37 18:48:00* Test Item Value Reference Range Interpretation Comments Urine WBC (test code = 5821-4) NONE 0-5 [facility] HCF8139-71-82 18:48:00* Test Item Value Reference Range Interpretation Comments Urine RBC (test code = 68992-9) NONE 0-5 [facility] Jikamhdc9119-38-09 18:48:00* Test Item Value Reference Range Interpretation Comments Urine Bacteria (test code = 65226-2) MODERATE NONE H [facility] Epithelial Zivns3372-83-22 18:48:00 * Test Item Value Reference Range Interpretation Comments Urine Epithelial Cells (test code = 91435-5) FEW NONE [facility] Seuas2741-25-88 18:48:00* Test Item Value Reference Range Interpretation Comments Urine Mucus (test code = 8247-9) MODERATE RARE H [facility] RAJ6290-45-72 18:48:00* Test Item Value Reference Range Interpretation Comments Urine WBC (test code = 5821-4) NONE 0-5 [facility] SSV5742-55-44 18:48:00* Test Item Value Reference Range Interpretation Comments Urine RBC (test code = 35958-3) NONE 0-5 [facility] Gfpqtkkx7691-34-31 18:48:00* Test Item Value Reference Range Interpretation Comments Urine Bacteria (test code = 26584-1) MODERATE NONE H [facility] Epithelial Mnper5917-18-85 18:48:00 * Test Item Value Reference Range Interpretation Comments Urine Epithelial Cells (test code = 47481-2) FEW NONE [facility] Ovcul3252-91-13 18:48:00* Test Item Value Reference Range Interpretation Comments Urine Mucus (test code = 8247-9) MODERATE RARE H [facility] CenterU[facility] OPA1447-48-20 18:48:00* Test Item Value Reference Range Interpretation Comments Urine WBC (test code = 5821-4) NONE 0-5 [facility] CenterU[facility] CNN4228-09-43 18:48:00* Test Item Value Reference Range Interpretation Comments Urine RBC (test code = 18856-6) NONE 0-5 [facility] CenterUrine Blvqsoka7913-33-04 18:48:00* Test Item Value Reference Range Interpretation Comments Urine Bacteria (test code = 72439-1) MODERATE NONE H [facility] CenterUrine Epithelial Olrfz4970-63-30 18:48:00 * Test Item Value Reference Range Interpretation Comments Urine Epithelial Cells (test code = 16617-4) FEW NONE [facility] CenterUrine Gwjrh6910-51-13 18:48:00* Test Item Value Reference Range Interpretation Comments Urine Mucus (test code = 8247-9) MODERATE RARE H [facility] CenterUrine Jmbiq1210-78-18 18:37:00* Test Item Value Reference Range Interpretation Comments Urine Color (test code = 5778-6) YELLOW YELLOW [facility] CenterU[facility] Qncqnhi4515-08-06 18:37:00* Test Item Value Reference Range Interpretation Comments Urine Clarity (test code = 01162-6) SL CLOUDY CLEAR [facility] CenterUrine Specific Wtinwue7281-00-42 18:37:00 * Test Item Value Reference Range Interpretation Comments Urine Specific [place] (test code = 5811-5) 1.025 1.010-1.02 5 [facility] CenterU[facility] bN2390-53-43 18:37:00* Test Item Value Reference Range Interpretation Comments Urine pH (test code = 72414-7) 5 5-7 [facility] CenterU[facility] Leukocyte Zutahena9040-17-49 18:37:00* Test Item Value Reference Range Interpretation Comments Urine Leukocyte Esterase (test code = 5799-2) NEGATIVE NEGATIVE [facility] CenterU[facility] Qukyjjs5783-59-46 18:37:00* Test Item Value Reference Range Interpretation Comments Urine Nitrite (test code = 35170-8) NEGATIVE NEGATIVE [facility] CenterU[facility] Bfzseue5168-92-51 18:37:00* Test Item Value Reference Range Interpretation Comments Urine Protein (test code = 5804-0) NEGATIVE NEGATIVE [facility] CenterUrine Glucose (UA)2018-02-05 18:37:00* Test Item Value Reference Range Interpretation Comments Urine Glucose (UA) (test code = 2349-9) NEGATIVE NEGATIVE [facility] Lvfzlaf7490-67-42 18:37:00* Test Item Value Reference Range Interpretation Comments Urine Ketones (test code = 41853-6) NEGATIVE NEGATIVE [facility] Blrrpscuehgx0405-87-96 18:37:00* Test Item Value Reference Range Interpretation Comments Urine Urobilinogen (test code = 19162-3) 0.2 0.2-1 [facility] Ifmfvyhbt6385-37-13 18:37:00* Test Item Value Reference Range Interpretation Comments Urine Bilirubin (test code = 1978-6) NEGATIVE NEGATIVE [facility] Kebzd4561-40-08 18:37:00* Test Item Value Reference Range Interpretation Comments Urine Blood (test code = 52110-0) NEGATIVE NEGATIVE [facility] Jkbcm1744-54-09 18:37:00* Test Item Value Reference Range Interpretation Comments Urine Color (test code = 5778-6) YELLOW YELLOW [facility] Dnaeosm5223-63-88 18:37:00* Test Item Value Reference Range Interpretation Comments Urine Clarity (test code = 17583-7) SL CLOUDY CLEAR [facility] Specific Wtvwsvx9863-25-91 18:37:00 * Test Item Value Reference Range Interpretation Comments Urine Specific [place] (test code = 5811-5) 1.025 1.010-1.02 5 [facility] nQ1501-86-10 18:37:00* Test Item Value Reference Range Interpretation Comments Urine pH (test code = 84529-3) 5 5-7 [facility] Leukocyte Eidpukvb7244-07-90 18:37:00* Test Item Value Reference Range Interpretation Comments Urine Leukocyte Esterase (test code = 5799-2) NEGATIVE NEGATIVE [facility] Tyrkbep0750-29-37 18:37:00* Test Item Value Reference Range Interpretation Comments Urine Nitrite (test code = 30487-2) NEGATIVE NEGATIVE [facility] Odldetr6853-95-13 18:37:00* Test Item Value Reference Range Interpretation Comments Urine Protein (test code = 5804-0) NEGATIVE NEGATIVE [facility] Glucose (UA)2018-02-05 18:37:00* Test Item Value Reference Range Interpretation Comments Urine Glucose (UA) (test code = 2349-9) NEGATIVE NEGATIVE [facility] Pdsuqky1617-38-31 18:37:00* Test Item Value Reference Range Interpretation Comments Urine Ketones (test code = 40274-2) NEGATIVE NEGATIVE [facility] Dykirwpkriud2281-57-21 18:37:00* Test Item Value Reference Range Interpretation Comments Urine Urobilinogen (test code = 87086-5) 0.2 0.2-1 [facility] Qidejzkmu2144-46-91 18:37:00* Test Item Value Reference Range Interpretation Comments Urine Bilirubin (test code = 1978-6) NEGATIVE NEGATIVE [facility] Dxriy0130-77-24 18:37:00* Test Item Value Reference Range Interpretation Comments Urine Blood (test code = 09318-1) NEGATIVE NEGATIVE [facility] Yywfo5891-62-75 18:37:00* Test Item Value Reference Range Interpretation Comments Urine Color (test code = 5778-6) YELLOW YELLOW [facility] Xagnexk1482-85-99 18:37:00* Test Item Value Reference Range Interpretation Comments Urine Clarity (test code = 95275-1) SL CLOUDY CLEAR [facility] Specific Dwjxgzi3896-09-09 18:37:00 * Test Item Value Reference Range Interpretation Comments Urine Specific [place] (test code = 5811-5) 1.025 1.010-1.02 5 [facility] lT0685-21-56 18:37:00* Test Item Value Reference Range Interpretation Comments Urine pH (test code = 11635-6) 5 5-7 [facility] Leukocyte Hhjxpqgi7158-95-00 18:37:00* Test Item Value Reference Range Interpretation Comments Urine Leukocyte Esterase (test code = 5799-2) NEGATIVE NEGATIVE [facility] Hsgnaqh2420-22-47 18:37:00* Test Item Value Reference Range Interpretation Comments Urine Nitrite (test code = 97532-5) NEGATIVE NEGATIVE [facility] Szrpxon2573-12-99 18:37:00* Test Item Value Reference Range Interpretation Comments Urine Protein (test code = 5804-0) NEGATIVE NEGATIVE [facility] Glucose (UA)2018-02-05 18:37:00* Test Item Value Reference Range Interpretation Comments Urine Glucose (UA) (test code = 2349-9) NEGATIVE NEGATIVE [facility] Ztuexee6791-53-32 18:37:00* Test Item Value Reference Range Interpretation Comments Urine Ketones (test code = 34389-7) NEGATIVE NEGATIVE [facility] Wdfzjfenrbqb9953-50-30 18:37:00* Test Item Value Reference Range Interpretation Comments Urine Urobilinogen (test code = 61034-8) 0.2 0.2-1 [facility] Yavpodmib2591-16-71 18:37:00* Test Item Value Reference Range Interpretation Comments Urine Bilirubin (test code = 1978-6) NEGATIVE NEGATIVE [facility] Wvfyh4083-13-64 18:37:00* Test Item Value Reference Range Interpretation Comments Urine Blood (test code = 08233-1) NEGATIVE NEGATIVE [facility] Gnxqc2095-74-05 18:37:00* Test Item Value Reference Range Interpretation Comments Urine Color (test code = 5778-6) YELLOW YELLOW [facility] Kkppdyq4340-34-80 18:37:00* Test Item Value Reference Range Interpretation Comments Urine Clarity (test code = 02144-7) SL CLOUDY CLEAR [facility] Specific Mufnnsv3865-29-49 18:37:00 * Test Item Value Reference Range Interpretation Comments Urine Specific [place] (test code = 5811-5) 1.025 1.010-1.02 5 [facility] rJ0768-15-32 18:37:00* Test Item Value Reference Range Interpretation Comments Urine pH (test code = 53195-0) 5 5-7 [facility] Leukocyte Zvrkleti3554-76-63 18:37:00* Test Item Value Reference Range Interpretation Comments Urine Leukocyte Esterase (test code = 5799-2) NEGATIVE NEGATIVE [facility] Pjfadhi0369-03-54 18:37:00* Test Item Value Reference Range Interpretation Comments Urine Nitrite (test code = 26167-4) NEGATIVE NEGATIVE [facility] Fgxdanp3856-23-36 18:37:00* Test Item Value Reference Range Interpretation Comments Urine Protein (test code = 5804-0) NEGATIVE NEGATIVE [facility] Glucose (UA)2018-02-05 18:37:00* Test Item Value Reference Range Interpretation Comments Urine Glucose (UA) (test code = 2349-9) NEGATIVE NEGATIVE [facility] Okbnjso0783-19-20 18:37:00* Test Item Value Reference Range Interpretation Comments Urine Ketones (test code = 51939-3) NEGATIVE NEGATIVE [facility] Efuxnywdccby2320-18-58 18:37:00* Test Item Value Reference Range Interpretation Comments Urine Urobilinogen (test code = 09047-2) 0.2 0.2-1 [facility] Xciltbnus5687-82-35 18:37:00* Test Item Value Reference Range Interpretation Comments Urine Bilirubin (test code = 1978-6) NEGATIVE NEGATIVE [facility] Dflsl8802-30-85 18:37:00* Test Item Value Reference Range Interpretation Comments Urine Blood (test code = 80064-5) NEGATIVE NEGATIVE [facility] Kcnpm8869-37-22 18:37:00* Test Item Value Reference Range Interpretation Comments Urine Color (test code = 5778-6) YELLOW YELLOW [facility] Clkmlzx0149-52-67 18:37:00* Test Item Value Reference Range Interpretation Comments Urine Clarity (test code = 79288-2) SL CLOUDY CLEAR [facility] Specific Ksfbggf0997-46-30 18:37:00 * Test Item Value Reference Range Interpretation Comments Urine Specific [place] (test code = 5811-5) 1.025 1.010-1.02 5 [facility] sS0857-00-12 18:37:00* Test Item Value Reference Range Interpretation Comments Urine pH (test code = 26041-2) 5 5-7 [facility] Leukocyte Wrpcwubx7755-23-10 18:37:00* Test Item Value Reference Range Interpretation Comments Urine Leukocyte Esterase (test code = 5799-2) NEGATIVE NEGATIVE [facility] Osxadef1691-43-52 18:37:00* Test Item Value Reference Range Interpretation Comments Urine Nitrite (test code = 19165-0) NEGATIVE NEGATIVE [facility] Yizlzqg4098-38-24 18:37:00* Test Item Value Reference Range Interpretation Comments Urine Protein (test code = 5804-0) NEGATIVE NEGATIVE [facility] Glucose (UA)2018-02-05 18:37:00* Test Item Value Reference Range Interpretation Comments Urine Glucose (UA) (test code = 2349-9) NEGATIVE NEGATIVE [facility] Japmbrs0971-43-13 18:37:00* Test Item Value Reference Range Interpretation Comments Urine Ketones (test code = 04576-2) NEGATIVE NEGATIVE [facility] Szqwzaytfcyi1160-88-60 18:37:00* Test Item Value Reference Range Interpretation Comments Urine Urobilinogen (test code = 69233-9) 0.2 0.2-1 [facility] Qvftpgovy6655-35-96 18:37:00* Test Item Value Reference Range Interpretation Comments Urine Bilirubin (test code = 1978-6) NEGATIVE NEGATIVE [facility] Gakti7321-20-69 18:37:00* Test Item Value Reference Range Interpretation Comments Urine Blood (test code = 15267-3) NEGATIVE NEGATIVE [facility] CenterCreatine Kinase LN6908-97-38 13:06:00* Test Item Value Reference Range Interpretation Comments Creatine Kinase MB (test code = 33394-5) 1.40 0-5.0 [facility] CenterTroponin V7708-12-21 13:06:00* Test Item Value Reference Range Interpretation Comments Troponin I (test code = NYH6470) -0.001 0-0.300 [facility] CenterCreatine Uklgzq8515-93-64 13:02:00* Test Item Value Reference Range Interpretation Comments Creatine Kinase (test code = 2157-6) 39 29-168 [facility] CenterProthrombin Ssqu2107-23-68 12:53:00* Test Item Value Reference Range Interpretation Comments Prothrombin Time (test code = 5902-2) 12.4 11.9-14.5 [facility] CenterProthromb Time International Ratio 2018-02-05 12:53:00* Test Item Value Reference Range Interpretation Comments Prothromb Time International Ratio (test code = 6301-6) 1.00 Oral Anticoagulant Therapy INR Values:1. Low Intensity Therapy 1.5 - 2.02 . Moderate Intensity Therapy 2.0 - 3.03. High Intensity Therapy(1) 2.5 - 3. 54. High Intensity Therapy(2) 3.0 - 4.05. Panic Value INR > 5.0 [facility] CenterD-Dimer Quantitative (PE/DVT)2017-05-07 14:22:00* Test Item Value Reference Range Interpretation Comments D-Dimer Quantitative (PE/DVT) (test code = 59657-4) 1.82 0. 00-0.45 H As with all in vitro diagnostic tests, the test results should be interpreted by the physician in conjunction with clinical findings and other test results.Test results are reported in NEW D-dimer units(ug/mLFEU).[facility] CenterD-Dimer Quantitative (PE/DVT)2017-05-07 14:22:00* Test Item Value Reference Range Interpretation Comments D-Dimer Quantitative (PE/DVT) (test code = 07655-4) 1.82 0. 00-0.45 H As with all in vitro diagnostic tests, the test results should be interpreted by the physician in conjunction with clinical findings and other test results.Test results are reported in NEW D-dimer units(ug/mLFEU).[facility] CenterD-Dimer Quantitative (PE/DVT)2017-05-07 14:22:00* Test Item Value Reference Range Interpretation Comments D-Dimer Quantitative (PE/DVT) (test code = 03272-0) 1.82 0. 00-0.45 H As with all in vitro diagnostic tests, the test results should be interpreted by the physician in conjunction with clinical findings and other test results.Test results are reported in NEW D-dimer units(ug/mLFEU).[facility] CenterD-Dimer Quantitative (PE/DVT)2017-05-07 14:22:00* Test Item Value Reference Range Interpretation Comments D-Dimer Quantitative (PE/DVT) (test code = 17513-3) 1.82 0. 00-0.45 H As with all in vitro diagnostic tests, the test results should be interpreted by the physician in conjunction with clinical findings and other test results.Test results are reported in NEW D-dimer units(ug/mLFEU).[facility] Pshji0197-77-23 14:20:00* Test Item Value Reference Range Interpretation Comments Sodium Level (test code = 2951-2) 140 136-145 [facility] CenterPotassium Risco4019-91-99 14:20:00* Test Item Value Reference Range Interpretation Comments Potassium Level (test code = 2823-3) 3.9 3.5-5.1 [facility] CenterChloride Xnoeq4800-56-07 14:20:00* Test Item Value Reference Range Interpretation Comments Chloride Level (test code = 2075-0) 104 98-107 [facility] CenterCarbon Dioxide Flmlk2330-34-29 14:20:00* Test Item Value Reference Range Interpretation Comments Carbon Dioxide Level (test code = 2028-9) 24 22-29 [facility] CenterAnion Cyj8340-62-77 14:20:00* Test Item Value Reference Range Interpretation Comments Anion Gap (test code = 90111-0) 15.9 8-16 [facility] CenterBlood Urea Ewacmggq6551-74-43 14:20:00* Test Item Value Reference Range Interpretation Comments Blood Urea Nitrogen (test code = 3094-0) 25 7-26 [facility] CenterCreatinine2017-08-06 14:20:00* Test Item Value Reference Range Interpretation Comments Creatinine (test code = 2160-0) 1.87 0.57-1.11 H [facility] CenterBUN/Creatinine Zchfg8884-95-90 14:20:00* Test Item Value Reference Range Interpretation Comments BUN/Creatinine Ratio (test code = 3097-3) 13 6-25 [facility] CenterEstimat Glomerular Filtration Rate 2017-05-07 14:20:00* Test Item Value Reference Range Interpretation Comments Estimat Glomerular Filtration Rate (test code = 11793-9) 26 >60 L Ranges were taken from the National Kidney Disease Education Program and the [facility] literature.Reference ranges:60 or greater: Smbktx84-04 ( for 3 consecutive months): Chronic kidney disease 15 or less: Kidney failureParis Regional Medical CenterGlucose Pdoww0970-48-26 14:20:00* Test Item Value Reference Range Interpretation Comments Glucose Level (test code = LBF8141) 120 74-118 H [facility] CenterCalcium Creeo7890-08-83 14:20:00* Test Item Value Reference Range Interpretation Comments Calcium Level (test code = 96959-1) 9.7 8.4-10.2 [facility] CenterTotal Sivyxkwrw1198-82-82 14:20:00* Test Item Value Reference Range Interpretation Comments Total Bilirubin (test code = 1975-2) 0.5 0.2-1.2 [facility] CenterAspartate Amino Transf (AST/SGOT) 2017-05-07 14:20:00* Test Item Value Reference Range Interpretation Comments Aspartate Amino Transf (AST/SGOT) (test code = Aspartate Amino Transf (AST/SGOT)) 19 5-34 [facility] CenterAlanine Aminotransferase (ALT/SGPT) 2017-05-07 14:20:00* Test Item Value Reference Range Interpretation Comments Alanine Aminotransferase (ALT/SGPT) (test code = 1742-6) 17 0-55 [facility] CenterTotal Plbbfnm6387-36-35 14:20:00* Test Item Value Reference Range Interpretation Comments Total Protein (test code = 2885-2) 6.7 6.5-8.1 [facility] CenterAlbumin2017-08-06 14:20:00* Test Item Value Reference Range Interpretation Comments Albumin (test code = 1751-7) 3.3 3.5-5.0 L [facility] CenterGlobulin2017-08-06 14:20:00* Test Item Value Reference Range Interpretation Comments Globulin (test code = 31556-2) 3.4 2.3-3.5 [facility] CenterAlbumin/Globulin Nmyax0933-60-22 14:20:00 * Test Item Value Reference Range Interpretation Comments Albumin/Globulin Ratio (test code = 1759-0) 1.0 0.8-2.0 [facility] CenterAlkaline Cxkdshvetch2267-60-95 14:20:00* Test Item Value Reference Range Interpretation Comments Alkaline Phosphatase (test code = 6768-6) 64 40-150 [facility] Ofbrs0834-73-08 14:20:00* Test Item Value Reference Range Interpretation Comments Sodium Level (test code = 2951-2) 140 136-145 [facility] CenterPotassium Oaqax2009-59-83 14:20:00* Test Item Value Reference Range Interpretation Comments Potassium Level (test code = 2823-3) 3.9 3.5-5.1 [facility] CenterChloride Jbhdv5848-39-30 14:20:00* Test Item Value Reference Range Interpretation Comments Chloride Level (test code = 2075-0) 104 98-107 [facility] CenterCarbon Dioxide Rdikc8482-77-76 14:20:00* Test Item Value Reference Range Interpretation Comments Carbon Dioxide Level (test code = 2028-9) 24 22-29 [facility] CenterAnion Lks7679-83-84 14:20:00* Test Item Value Reference Range Interpretation Comments Anion Gap (test code = 56016-3) 15.9 8-16 [facility] CenterBlood Urea Zqklwyxu2675-31-87 14:20:00* Test Item Value Reference Range Interpretation Comments Blood Urea Nitrogen (test code = 3094-0) 25 7-26 [facility] CenterCreatinine2017-08-06 14:20:00* Test Item Value Reference Range Interpretation Comments Creatinine (test code = 2160-0) 1.87 0.57-1.11 H [facility] CenterBUN/Creatinine Zzyba9708-72-02 14:20:00* Test Item Value Reference Range Interpretation Comments BUN/Creatinine Ratio (test code = 3097-3) 13 6-25 [facility] CenterEstimat Glomerular Filtration Rate 2017-05-07 14:20:00* Test Item Value Reference Range Interpretation Comments Estimat Glomerular Filtration Rate (test code = 86716-1) 26 >60 L Ranges were taken from the National Kidney Disease Education Program and the [facility] literature.Reference ranges:60 or greater: Gyidbc75-08 ( for 3 consecutive months): Chronic kidney disease 15 or less: Kidney failureParis Regional Medical CenterGlucose Gexyz0801-82-37 14:20:00* Test Item Value Reference Range Interpretation Comments Glucose Level (test code = UQN8084) 120 74-118 H [facility] CenterCalcium Qekxk4481-23-36 14:20:00* Test Item Value Reference Range Interpretation Comments Calcium Level (test code = 92569-5) 9.7 8.4-10.2 [facility] CenterTotal Oqcqtzqmq8630-77-59 14:20:00* Test Item Value Reference Range Interpretation Comments Total Bilirubin (test code = 1975-2) 0.5 0.2-1.2 [facility] CenterAspartate Amino Transf (AST/SGOT) 2017-05-07 14:20:00* Test Item Value Reference Range Interpretation Comments Aspartate Amino Transf (AST/SGOT) (test code = Aspartate Amino Transf (AST/SGOT)) 19 5-34 [facility] CenterAlanine Aminotransferase (ALT/SGPT) 2017-05-07 14:20:00* Test Item Value Reference Range Interpretation Comments Alanine Aminotransferase (ALT/SGPT) (test code = 1742-6) 17 0-55 [facility] CenterTotal Bdsvcck8515-37-13 14:20:00* Test Item Value Reference Range Interpretation Comments Total Protein (test code = 2885-2) 6.7 6.5-8.1 [facility] CenterAlbumin2017-08-06 14:20:00* Test Item Value Reference Range Interpretation Comments Albumin (test code = 1751-7) 3.3 3.5-5.0 L [facility] CenterGlobulin2017-08-06 14:20:00* Test Item Value Reference Range Interpretation Comments Globulin (test code = 91997-0) 3.4 2.3-3.5 [facility] CenterAlbumin/Globulin Wxkgu4126-84-65 14:20:00 * Test Item Value Reference Range Interpretation Comments Albumin/Globulin Ratio (test code = 1759-0) 1.0 0.8-2.0 [facility] CenterAlkaline Gwaorevdrjo7338-39-05 14:20:00* Test Item Value Reference Range Interpretation Comments Alkaline Phosphatase (test code = 6768-6) 64 40-150 [facility] CenterActivated Partial Thromboplast Time 2017-05-07 14:12:00* Test Item Value Reference Range Interpretation Comments Activated Partial Thromboplast Time (test code = 66948-3) 19.3 23.8-35.5 L [facility] CenterActivated Partial Thromboplast Time 2017-05-07 14:12:00* Test Item Value Reference Range Interpretation Comments Activated Partial Thromboplast Time (test code = 19333-2) 19.3 23.8-35.5 L [facility] CenterActivated Partial Thromboplast Time 2017-05-07 14:12:00* Test Item Value Reference Range Interpretation Comments Activated Partial Thromboplast Time (test code = 61543-1) 19.3 23.8-35.5 L [facility] CenterProthrombin Teji5251-17-00 14:11:00* Test Item Value Reference Range Interpretation Comments Prothrombin Time (test code = 5902-2) 12.2 11.9-14.5 [facility] CenterProthromb Time International Ratio 2017-05-07 14:11:00* Test Item Value Reference Range Interpretation Comments Prothromb Time International Ratio (test code = 6301-6) 0.86 Oral Anticoagulant Therapy INR Values:1. Low Intensity Therapy 1.5 - 2.02 . Moderate Intensity Therapy 2.0 - 3.03. High Intensity Therapy(1) 2.5 - 3. 54. High Intensity Therapy(2) 3.0 - 4.05. Panic Value INR > 5.0 [facility] CenterProthrombin Jvyg8742-21-06 14:11:00* Test Item Value Reference Range Interpretation Comments Prothrombin Time (test code = 5902-2) 12.2 11.9-14.5 [facility] CenterProthromb Time International Ratio 2017-05-07 14:11:00* Test Item Value Reference Range Interpretation Comments Prothromb Time International Ratio (test code = 6301-6) 0.86 Oral Anticoagulant Therapy INR Values:1. Low Intensity Therapy 1.5 - 2.02 . Moderate Intensity Therapy 2.0 - 3.03. High Intensity Therapy(1) 2.5 - 3. 54. High Intensity Therapy(2) 3.0 - 4.05. Panic Value INR > 5.0 [facility] CenterWhite Blood Ygkvw2183-32-30 14:05:00* Test Item Value Reference Range Interpretation Comments White Blood Count (test code = 6690-2) 10.35 4.8-10.8 [facility] CenterRed Blood Qwcpp6496-74-74 14:05:00* Test Item Value Reference Range Interpretation Comments Red Blood Count (test code = 789-8) 3.98 3.6-5.1 [facility] CenterHemoglobin2017-08-06 14:05:00* Test Item Value Reference Range Interpretation Comments Hemoglobin (test code = 74163-4) 12.4 12.0-16.0 [facility] CenterHematocrit2017-08-06 14:05:00* Test Item Value Reference Range Interpretation Comments Hematocrit (test code = 4544-3) 38.2 34.2-44.1 [facility] CenterMean Corpuscular Pgsijd3136-80-40 14:05:00* Test Item Value Reference Range Interpretation Comments Mean Corpuscular Volume (test code = 787-2) 96.0 81-99 [facility] CenterMean Corpuscular Tiwhhwtnwm1001-61-00 14:05:00* Test Item Value Reference Range Interpretation Comments Mean Corpuscular Hemoglobin (test code = 785-6) 31.2 28-32 [facility] CenterMean Corpuscular Hemoglobin Concent 2017-05-07 14:05:00* Test Item Value Reference Range Interpretation Comments Mean Corpuscular Hemoglobin Concent (test code = 786-4) 32.5 31-35 [facility] CenterRed Cell Distribution Yciue5540-98-09 14:05:00* Test Item Value Reference Range Interpretation Comments Red Cell Distribution Width (test code = 58877-1) 13.3 11.7 -14.4 [facility] CenterPlatelet Mwxwl1392-55-19 14:05:00* Test Item Value Reference Range Interpretation Comments Platelet Count (test code = 777-3) 340 140-360 [facility] CenterNeutrophils (%) (Auto)2017-05-07 14:05:00 * Test Item Value Reference Range Interpretation Comments Neutrophils (%) (Auto) (test code = 70714-9) 72.5 38.7-80.0 [facility] CenterLymphocytes (%) (Auto)2017-05-07 14:05:00 * Test Item Value Reference Range Interpretation Comments Lymphocytes (%) (Auto) (test code = 736-9) 17.9 18.0-39.1 L [facility] CenterMonocytes (%) (Auto)2017-05-07 14:05:00* Test Item Value Reference Range Interpretation Comments Monocytes (%) (Auto) (test code = 5905-5) 7.6 4.4-11.3 [facility] CenterEosinophils (%) (Auto)2017-05-07 14:05:00 * Test Item Value Reference Range Interpretation Comments Eosinophils (%) (Auto) (test code = 713-8) 0.2 0.0-6.0 [facility] CenterBasophils (%) (Auto)2017-05-07 14:05:00* Test Item Value Reference Range Interpretation Comments Basophils (%) (Auto) (test code = 706-2) 0.8 0.0-1.0 [facility] CenterIM GRANULOCYTES %2017-05-07 14:05:00* Test Item Value Reference Range Interpretation Comments IM GRANULOCYTES % (test code = IM GRANULOCYTES %) 1.0 0.0- 1.0 [facility] CenterNeutrophils # (Auto)2017-05-07 14:05:00* Test Item Value Reference Range Interpretation Comments Neutrophils # (Auto) (test code = 751-8) 7.5 2.1-6.9 H [facility] CenterLymphocytes # (Auto)2017-05-07 14:05:00* Test Item Value Reference Range Interpretation Comments Lymphocytes # (Auto) (test code = 39740-6) 1.9 1.0-3.2 [facility] # (Auto)2017-05-07 14:05:00* Test Item Value Reference Range Interpretation Comments Monocytes # (Auto) (test code = 742-7) 0.8 0.2-0.8 [facility]Eosinophils # (Auto)2017-05-07 14:05:00* Test Item Value Reference Range Interpretation Comments Eosinophils # (Auto) (test code = 711-2) 0.0 0.0-0.4 [facility]Bas[facility] # (Auto)2017-05-07 14:05:00* Test Item Value Reference Range Interpretation Comments Basophils # (Auto) (test code = 704-7) 0.1 0.0-0.1 [facility] CenterAbsolute Immature Granulocyte (auto 2017-05-07 14:05:00* Test Item Value Reference Range Interpretation Comments Absolute Immature Granulocyte (auto (idania t code = Absolute Immature Granulocyte (auto) 0.10 0-0.1 [facility] CenterWhite Blood Nsngb8090-31-23 14:05:00* Test Item Value Reference Range Interpretation Comments White Blood Count (test code = 6690-2) 10.35 4.8-10.8 [facility] CenterRed Blood Ptewd9032-30-71 14:05:00* Test Item Value Reference Range Interpretation Comments Red Blood Count (test code = 789-8) 3.98 3.6-5.1 [facility] CenterHemoglobin2017-08-06 14:05:00* Test Item Value Reference Range Interpretation Comments Hemoglobin (test code = 56954-0) 12.4 12.0-16.0 [facility] CenterHematocrit2017-08-06 14:05:00* Test Item Value Reference Range Interpretation Comments Hematocrit (test code = 4544-3) 38.2 34.2-44.1 [facility] CenterMean Corpuscular Cgamyw3161-64-12 14:05:00* Test Item Value Reference Range Interpretation Comments Mean Corpuscular Volume (test code = 787-2) 96.0 81-99 [facility] CenterMean Corpuscular Hhlnpnmccn5995-50-77 14:05:00* Test Item Value Reference Range Interpretation Comments Mean Corpuscular Hemoglobin (test code = 785-6) 31.2 28-32 [facility] Hemoglobin Concent 2017-05-07 14:05:00* Test Item Value Reference Range Interpretation Comments Mean Corpuscular Hemoglobin Concent (test code = 786-4) 32.5 31-35 [facility] CenterRed Cell Distribution Vmkmq3292-18-29 14:05:00* Test Item Value Reference Range Interpretation Comments Red Cell Distribution Width (test code = 02669-1) 13.3 11.7 -14.4 [facility] CenterPlatelet Thrzz5543-11-18 14:05:00* Test Item Value Reference Range Interpretation Comments Platelet Count (test code = 777-3) 340 140-360 [facility] CenterNeutrophils (%) (Auto)2017-05-07 14:05:00 * Test Item Value Reference Range Interpretation Comments Neutrophils (%) (Auto) (test code = 68905-8) 72.5 38.7-80.0 [facility] CenterLymphocytes (%) (Auto)2017-05-07 14:05:00 * Test Item Value Reference Range Interpretation Comments Lymphocytes (%) (Auto) (test code = 736-9) 17.9 18.0-39.1 L [facility] CenterMonocytes (%) (Auto)2017-05-07 14:05:00* Test Item Value Reference Range Interpretation Comments Monocytes (%) (Auto) (test code = 5905-5) 7.6 4.4-11.3 [facility] CenterEosinophils (%) (Auto)2017-05-07 14:05:00 * Test Item Value Reference Range Interpretation Comments Eosinophils (%) (Auto) (test code = 713-8) 0.2 0.0-6.0 [facility] CenterBasophils (%) (Auto)2017-05-07 14:05:00* Test Item Value Reference Range Interpretation Comments Basophils (%) (Auto) (test code = 706-2) 0.8 0.0-1.0 [facility] CenterIM GRANULOCYTES %2017-05-07 14:05:00* Test Item Value Reference Range Interpretation Comments IM GRANULOCYTES % (test code = IM GRANULOCYTES %) 1.0 0.0- 1.0 [facility] CenterNeutrophils # (Auto)2017-05-07 14:05:00* Test Item Value Reference Range Interpretation Comments Neutrophils # (Auto) (test code = 751-8) 7.5 2.1-6.9 H [facility] CenterLymphocytes # (Auto)2017-05-07 14:05:00* Test Item Value Reference Range Interpretation Comments Lymphocytes # (Auto) (test code = 04926-3) 1.9 1.0-3.2 [facility] CenterMonocytes # (Auto)2017-05-07 14:05:00* Test Item Value Reference Range Interpretation Comments Monocytes # (Auto) (test code = 742-7) 0.8 0.2-0.8 [facility] CenterEosinophils # (Auto)2017-05-07 14:05:00* Test Item Value Reference Range Interpretation Comments Eosinophils # (Auto) (test code = 711-2) 0.0 0.0-0.4 [facility] CenterBasophils # (Auto)2017-05-07 14:05:00* Test Item Value Reference Range Interpretation Comments Basophils # (Auto) (test code = 704-7) 0.1 0.0-0.1 [facility] CenterAbsolute Immature Granulocyte (auto 2017-05-07 14:05:00* Test Item Value Reference Range Interpretation Comments Absolute Immature Granulocyte (auto (idania t code = Absolute Immature Granulocyte (auto) 0.10 0-0.1 [facility] CenterCT CHEST W [facility] [address] [place] [address] Patient Name: VICKI ESPARZA MR #: [id number] : 1940 Age/Sex: 77/F Req #: [id number] Adm Physician: Ordered by: DHRUV MOLINA MD Report #: [id number] Location: ER Room/Bed: Procedure: [id number] CT/CT CHEST W Exam Da te: 02/15/18 Exam Time: 1433 REPORT STATUS: Sig chela PROCEDURE: CT scan of the chest WITH intravenous contrast, using pulmo nary embolus protocol. TECHNIQUE: The chest was scanned utilizing a m [employer] Grouptector helical scanner from the lung apex through [...] at 14:57 Dictated By: HILARIO CHAVEZ MD 1979 Transcribed By: CALVIN on 02/15/18 2787 COPY TO: DHRUV MOLINA MD CHEST SINGLE (NOT PORTABLE) [place] [id number] Patient Name: VICKI ESPARZA MR #: [id number] : 1940 Age/Sex: 77/F Req #: [id number] Adm Physician: ROB VEGA MD Ordered by: AKIRA LYNN NP Report #: [id number] Location: [facility] Room/Bed: [place] [address] Procedure: [id number] DX/CHEST SINGLE (NOT PORTABLE) [...] on 04/18 1440 COPY TO: AKIRA LYNN NP KNEE THREE VIEWS BILATERAL [facility] [address] [place], [place] [address] Patient Name: VICKI ESPARZA MR #: [id number] OB: 1940 Age/Sex: 76/F Req #: [id number] Adm Physic larry: Ordered by: ERICA GARCIAS MD Report #: [id number] Location: E R Room/Bed: Procedure: [id number] DX/KNEE THREE VIEWS BILATERAL Exam Date: 06/17/17 [...]
[2020-07-10] MEDS: VANCOMYCIN 250MG/5ML ORAL SOLN PO SCH ×4 (06:12→18:12)
[2020-07-10] MEDS: OYST-CAL-D 500MG TABLET PO SCH ×2 (08:05→17:33)
[2020-07-10] MEDS: LIOTHYRONINE SODIUM 5 MCG TAB PO SCH (08:05)
[2020-07-10] MEDS: CLOPIDOGREL BISULFATE 75 MG TAB PO SCH (08:05)
[2020-07-10] MEDS: LEVOTHYROXINE SODIUM 100 MCG TAB PO SCH (08:05)
[2020-07-10] MEDS: AMLODIPINE BESYLATE 5 MG TAB PO SCH (08:45)
--- NOTE | 2020-07-10 08:45 | History and Physical ---
HISTORY OF PRESENT ILLNESS: The patient is a 79-year-old lady, well known to me, was discharged yesterday, who went home, was feeling good, was having no further diarrhea, then around 7 o'clock in the night, she started having significant rigors and low-grade fever when she called me and I instructed the patient on how to try to help control the symptoms. Unfortunately, she progressed to the point where her was nervous, so he brought back to the emergency room where she has a temperature of 100, but labs and vital signs were unremarkable. CT scan showed possible evidence of infectious colitis, hence lactic acid was slightly elevated, but improved to normal quickly, so the patient was admitted to observation for further evaluation. PAST MEDICAL HISTORY: Significant for hypertension, chronic kidney disease stage 3, and hypothyroidism. MEDICATIONS: See NOV. ALLERGIES: SEE NOV. SOCIAL HISTORY: Nonsmoker and nondrinker. Lives at home with her . FAMILY HISTORY: Hypertension. PHYSICAL EXAMINATION: VITAL SIGNS: Temperature 97.9, pulse 83, blood pressure 139/62, sats 97% on room air. GENERAL: She is in no apparent distress, lying in bed. NECK: Supple. CARDIOVASCULAR: Regular rate and rhythm. LUNGS: Clear to auscultation bilaterally. ABDOMEN: Good bowel sounds. Soft, nontender. No peritoneal signs. EXTREMITIES: No clubbing or cyanosis. NEUROLOGICAL: Nonfocal. ASSESSMENT AND PLAN: 1. Gastroenteritis. We will continue the vancomycin and check stool studies. 2. Fever. Continue with p.r.n. Tylenol. 3. Hypertension. We will restart her home medications and monitor her blood pressure. 4. Chronic kidney disease stage 3. We will continue to monitor her creatinine since she is at her baseline. 5. Hypothyroidism. We will restart her home medicines. Please see hospital chart for full details. MD FAITH Tracey/MICHELLE /[id number]
[2020-07-10] MEDS: ONDANSETRON HCL INJ 2MG/ML 2ML 2 MG/ML VIAL IV PRN (12:23)
--- NOTE | 2020-07-10 13:14 | NUR ---
Patient's is c-diff negative. Notified Dr. Diaz. Verbal order to give imodium for multiple loose stools.
[2020-07-10] MEDS: LOPERAMIDE HCL 2 MG CAP PO PRN ×2 (17:33→23:50)
--- NOTE | 2020-07-10 20:17 | NUR ---
Received pt in bed awake and orientated. Pt bed in low and locked position, with call nina and personal items within reach. Pt c/o multiple loose stools, med per prev staff. No s/sx of acute distress noted, no further c/o. Bedside report completed, will cont to mon.
[2020-07-10] MEDS: ASPIRIN 81 MG CHEW TAB PO SCH (21:17)
[2020-07-10] MEDS: SIMVASTATIN 20 MG TAB PO SCH (21:17)
[2020-07-11] VITALS (9 sets, daily range): BP systolic 149–178; BP diastolic 61–80
[2020-07-11] MEDS: VANCOMYCIN 250MG/5ML ORAL SOLN PO SCH ×5 (00:41→23:45)
[2020-07-11 06:39] LABS: BASOPHILS # (AUTO) 0.1 (0.0-0.1); EOSINOPHILS # (AUTO) 0.2 (0.0-0.4); EOSINOPHILS % 2.2 % (0.0-6.0); HEMATOCRIT 35.5 % (34.2-44.1); HEMOGLOBIN 11.5 g/dL (12.0-16.0); LYMPHOCYTES # (AUTO) 1.2 (1.0-3.2); LYMPHOCYTES % 16.6 % (18.0-39.1); MEAN CORPUSCULAR HEMOGLOBIN 30.7 pg (28-32); MEAN CORPUSCULAR HGB CONC 32.4 g/dL (31-35); MEAN CORPUSCULAR VOLUME 94.7 fL (81-99); MONOCYTES # (AUTO) 0.5 (0.2-0.8); MONOCYTES % 7.3 % (4.4-11.3); NEUTROPHILS # (AUTO) 5.3 (2.1-6.9); NEUTROPHILS % 72.5 % (38.7-80.0); PLATELET COUNT 216 x10e3/uL (140-360); RED BLOOD COUNT 3.75 x10e6/uL (3.6-5.1); RED CELL DISTRIBUTION WIDTH 13.4 % (11.7-14.4)
[2020-07-11 06:59] LABS: ALBUMIN/GLOBULIN RATIO 0.8 (0.8-2.0); ANION GAP 13.8 mmol/L (8-16); CALCIUM 8.3 mg/dL (8.4-10.2); CREATININE, SERUM 1.01 mg/dL (0.57-1.11); POTASSIUM 3.8 mmol/L (3.5-5.1)
[2020-07-11] MEDS: LEVOTHYROXINE SODIUM 100 MCG TAB PO SCH (09:12)
[2020-07-11] MEDS: OYST-CAL-D 500MG TABLET PO SCH ×2 (09:12→18:01)
[2020-07-11] MEDS: LIOTHYRONINE SODIUM 5 MCG TAB PO SCH (09:12)
[2020-07-11] MEDS: CLOPIDOGREL BISULFATE 75 MG TAB PO SCH (09:12)
[2020-07-11] MEDS: AMLODIPINE BESYLATE 5 MG TAB PO SCH (09:12)
--- NOTE | 2020-07-11 10:02 | NUR ---
SPOKE WITH DR VEGA WHO STATES IF PT TOLERATED LUNCH TODAY, CAN POSSIBLY BE DISCHARGED AROUND 1400
[2020-07-11] MEDS: LOPERAMIDE HCL 2 MG CAP PO PRN ×3 (11:54→23:45)
--- NOTE | 2020-07-11 11:54 | NUR ---
PT HAD 3 EPISODES OF WATER DIARRHEA WITHIN THE PAST 30 MINUTES. WILL ADMINISTER IMMODIUM.
--- NOTE | 2020-07-11 13:27 | NUR ---
PT CONTINUING TO HAVE MULTIPLE EPISODES OF DIARRHEA; SPOKE WITH DR. VEGA WHO STATES CONSULT DR. DOMINGUEZ.
[2020-07-11] MEDS: ASPIRIN 81 MG CHEW TAB PO SCH (20:32)
[2020-07-11] MEDS: SIMVASTATIN 20 MG TAB PO SCH (20:32)
[2020-07-12] VITALS (7 sets, daily range): BP systolic 149–164; BP diastolic 62–76
--- NOTE | 2020-07-12 02:11 | NUR ---
PT RESTING COMFORTABLY IN BED NO SIGNS OF DISTRESS NO COMPLAINTS AT THIS TIME
[2020-07-12] MEDS: VANCOMYCIN 250MG/5ML ORAL SOLN PO SCH ×3 (06:00→17:43)
--- NOTE | 2020-07-12 07:00 | NUR ---
BEDSIDE SHIFT REPORT RECEIVED FROM PM NURSE. PT IN STABLE CONDITION.
[2020-07-12] MEDS: LIOTHYRONINE SODIUM 5 MCG TAB PO SCH (08:51)
[2020-07-12] MEDS: OYST-CAL-D 500MG TABLET PO SCH ×2 (08:51→17:43)
[2020-07-12] MEDS: LEVOTHYROXINE SODIUM 100 MCG TAB PO SCH (08:51)
[2020-07-12] MEDS: CLOPIDOGREL BISULFATE 75 MG TAB PO SCH (08:51)
[2020-07-12] MEDS: AMLODIPINE BESYLATE 5 MG TAB PO SCH (08:51)
[2020-07-12] MEDS: CHOLESTYRAMINE 4 GM PACKET PO SCH ×3 (10:00→21:58)
[2020-07-12] MEDS: LOPERAMIDE HCL 2 MG CAP PO PRN (17:43)
--- NOTE | 2020-07-12 19:18 | NUR ---
RECEIVED THE PT IN REPORT.LYEING IN THE BED.BED ALARM ON .BED LOCKED AND IN LOWEST POSITION.CALL LIGHT WITHIN REACH.DENIED ANY NEEDS.
[2020-07-12] MEDS: ASPIRIN 81 MG CHEW TAB PO SCH (21:00)
[2020-07-12] MEDS: SIMVASTATIN 20 MG TAB PO SCH (21:00)
--- NOTE | 2020-07-12 21:10 | NUR ---
Rapid called and cancelled.
[2020-07-13] VITALS (8 sets, daily range): BP systolic 137–171; BP diastolic 57–73
[2020-07-13] MEDS: VANCOMYCIN 250MG/5ML ORAL SOLN PO SCH ×5 (00:15→23:55)
[2020-07-13] MEDS: LOPERAMIDE HCL 2 MG CAP PO PRN (00:28)
[2020-07-13] MEDS: ONDANSETRON HCL INJ 2MG/ML 2ML 2 MG/ML VIAL IV PRN (01:12)
--- NOTE | 2020-07-13 07:18 | NUR ---
BED SIDE SHIFT REPORT GIVEN TO ONCOMING RN.STABLE CONDITION.
[2020-07-13] MEDS: CLOPIDOGREL BISULFATE 75 MG TAB PO SCH (09:00)
[2020-07-13] MEDS: OYST-CAL-D 500MG TABLET PO SCH ×2 (09:00→17:00)
[2020-07-13] MEDS: LIOTHYRONINE SODIUM 5 MCG TAB PO SCH (09:00)
[2020-07-13] MEDS: LEVOTHYROXINE SODIUM 100 MCG TAB PO SCH (09:00)
[2020-07-13] MEDS: AMLODIPINE BESYLATE 5 MG TAB PO SCH (09:00)
[2020-07-13] MEDS: CHOLESTYRAMINE 4 GM PACKET PO SCH ×3 (10:00→21:55)
--- NOTE | 2020-07-13 14:29 | Consultation ---
DATE OF CONSULTATION: CHIEF COMPLAINT: Diarrhea. HISTORY OF PRESENT ILLNESS: This is a very pleasant 79-year-old lady coming with diarrhea. She reports up to nine bowel movements a day. She denies blood in the stool. Stool diarrhea is watery. She was admitted on discharge within the last few days for the same problem. PAST MEDICAL HISTORY: Hypertension, chronic kidney disease, hypothyroidism. MEDICATIONS: See list. ALLERGIES: NO SIGNIFICANT. SOCIAL HISTORY: The patient has no toxic habits. Lives at home. REVIEW OF SYSTEMS: Diarrhea, weakness. Otherwise negative. PHYSICAL EXAMINATION: VITAL SIGNS: Blood pressure 140/80, pulse 80, temperature 98. GENERAL: Well-nourished white lady, in no distress. HEENT: No pallor. ABDOMEN: Soft, nontender. ASSESSMENT: Diarrhea, improving. The patient on vancomycin, C diff is a possibility. Stool studies are pending. I will recommend to advance diet to low residue diet and follow closely. If diarrhea worsens, then she might require a colonoscopy. For the time being, she appears to be either viral gastroenteritis versus C diff colitis, which is improving on vancomycin by mouth. MD GREGG Almazan/MICHELLE /[id number]
--- NOTE | 2020-07-13 18:48 | NUR ---
PT RESTING ON BED BED SIDE REPORT GIVEN TO ONCOMING NURSE
[2020-07-13] MEDS: SIMVASTATIN 20 MG TAB PO SCH (20:24)
[2020-07-13] MEDS: ASPIRIN 81 MG CHEW TAB PO SCH (20:24)
[2020-07-14] VITALS (8 sets, daily range): BP systolic 138–188; BP diastolic 61–90
--- NOTE | 2020-07-14 05:02 | Progress Note ---
DATE: SUBJECTIVE: The patient states that she did much better with no diarrhea during the day. She had a loose stool overnight, but it had a little bit more formation to it, but she is still not eating very well, but would like to try a little bit more advanced diet, but this therapy was affected yesterday because of increased lower extremity swelling and discomfort. OBJECTIVE: VITAL SIGNS: Temperature stable. She is afebrile. GENERAL: No apparent distress, lying in bed. CARDIOVASCULAR: Regular rate and rhythm. LUNGS: Clear to auscultation bilaterally. ABDOMEN: Good bowel sounds. Soft and nontender. No peritoneal signs. EXTREMITIES: No clubbing or cyanosis. She does have 1+ pitting edema in bilateral lower extremities. NEUROLOGIC: Nonfocal. ASSESSMENT AND PLAN: 1. Gastroenteritis. Appears to be doing much better, so we will continue current care. 2. Weakness. Continue with physical therapy. I had a discussion with the patient about group home facility for rehab. 3. Edema. We will give her dose of Lasix and elevate whenever she is lying in bed. 4. Hypertension. Continue with her home medications. 5. Hyperlipidemia. Continue with her medication. 6. Hypothyroidism. Continue with her medication. Please see hospital chart for full details. MD FAITH Tracey/MICHELLE /[id number]
[2020-07-14] MEDS: VANCOMYCIN 250MG/5ML ORAL SOLN PO SCH ×3 (05:14→18:27)
[2020-07-14] MEDS ORDERED: FUROSEMIDE INJ 10 MG/ML 4 ML VIAL ONE (05:17)
[2020-07-14] MEDS ORDERED: FUROSEMIDE INJ 10 MG/ML 2 ML VIAL IV ONE (06:55)
[2020-07-14] MEDS: OYST-CAL-D 500MG TABLET PO SCH ×2 (09:39→18:27)
[2020-07-14] MEDS: LIOTHYRONINE SODIUM 5 MCG TAB PO SCH (09:39)
[2020-07-14] MEDS: CHOLESTYRAMINE 4 GM PACKET PO SCH ×3 (09:39→21:00)
[2020-07-14] MEDS: CLOPIDOGREL BISULFATE 75 MG TAB PO SCH (09:39)
[2020-07-14] MEDS: AMLODIPINE BESYLATE 5 MG TAB PO SCH (09:39)
[2020-07-14] MEDS: LEVOTHYROXINE SODIUM 100 MCG TAB PO SCH (09:39)
--- NOTE | 2020-07-14 13:26 | NUR ---
pt bm slowing. per GI ok to go tomorrow
--- NOTE | 2020-07-14 20:04 | NUR ---
pt resting comfortably in bed no signs of distress no complaints at this time
[2020-07-14] MEDS: ASPIRIN 81 MG CHEW TAB PO SCH (20:59)
[2020-07-14] MEDS: SIMVASTATIN 20 MG TAB PO SCH (21:00)
[2020-07-15 01:00] VITALS: BP 127/69
[2020-07-15 05:36] LABS: BASOPHILS # (AUTO) 0.1 (0.0-0.1); BASOPHILS % 0.5 % (0.0-1.0); EOSINOPHILS # (AUTO) 0.1 (0.0-0.4); EOSINOPHILS % 0.4 % (0.0-6.0); HEMATOCRIT 39.6 % (34.2-44.1); HEMOGLOBIN 12.7 g/dL (12.0-16.0); LYMPHOCYTES # (AUTO) 1.9 (1.0-3.2); LYMPHOCYTES % 14.9 % (18.0-39.1); MEAN CORPUSCULAR HEMOGLOBIN 29.8 pg (28-32); MEAN CORPUSCULAR HGB CONC 32.1 g/dL (31-35); MONOCYTES % 8.1 % (4.4-11.3); NEUTROPHILS # (AUTO) 9.7 (2.1-6.9); NEUTROPHILS % 75.5 % (38.7-80.0); PLATELET COUNT 378 x10e3/uL (140-360); RED BLOOD COUNT 4.26 x10e6/uL (3.6-5.1); RED CELL DISTRIBUTION WIDTH 13.4 % (11.7-14.4)
[2020-07-15 05:37] VITALS: BP 155/67
[2020-07-15] MEDS: VANCOMYCIN 250MG/5ML ORAL SOLN PO SCH ×3 (05:42→11:07)
[2020-07-15 05:57] LABS: ALBUMIN 2.4 g/dL (3.5-5.0); ALBUMIN/GLOBULIN RATIO 0.8 (0.8-2.0); ANION GAP 13.7 mmol/L (8-16); CALCIUM 9.4 mg/dL (8.4-10.2); CREATININE, SERUM 1.02 mg/dL (0.57-1.11); MAGNESIUM 1.6 MG/DL (1.3-2.1); POTASSIUM 3.7 mmol/L (3.5-5.1)
--- NOTE | 2020-07-15 07:00 | NUR ---
RECEIVED BEDSIDE SHIFT REPORT FROM OFF GOING NIGHT NURSE. RESPIRATIONS EVEN AND NONLABORED. PATIENT IN STABLE CONDITION, NO S/S OF DISTRESS NOTED.PATIENT ABLE TO VOICE NEEDS. TELEMETRY APPLIED. IV SIRE ASYMPTOMATIC AND PATENT, TRANSPARENT DRESSING C/D/I. BED ALARM APPLIED. BED IN LOWEST POSITION AND LOCKED, SIDE RAILS X2, NONSKID SOCKS APPLIED. CALL LIGHT WITHIN REACH.
[2020-07-15 07:50] VITALS: BP 152/74
[2020-07-15 07:59] VITALS: BP 152/74
[2020-07-15] MEDS: LIOTHYRONINE SODIUM 5 MCG TAB PO SCH (09:19)
[2020-07-15] MEDS: CLOPIDOGREL BISULFATE 75 MG TAB PO SCH (09:20)
[2020-07-15] MEDS: LEVOTHYROXINE SODIUM 100 MCG TAB PO SCH (09:20)
[2020-07-15] MEDS: OYST-CAL-D 500MG TABLET PO SCH (09:20)
[2020-07-15] MEDS: AMLODIPINE BESYLATE 5 MG TAB PO SCH (09:20)
[2020-07-15] MEDS: CHOLESTYRAMINE 4 GM PACKET PO SCH (09:22)
--- NOTE | 2020-07-15 10:50 | NUR ---
PT WORKED WITH THE PATIENT TODAY.
[2020-07-15] MEDS ORDERED: FLAGYL250 MG PO (11:23)
[2020-07-15 11:46] VITALS: BP 172/69
--- NOTE | 2020-07-15 12:37 | NUR ---
PATIENT DISCHARGED HOME. PATIENT OFF THE UNIT @ 1228 VIA WHEELCHAIR ACCOMPANIED BY PCT TO THE LOBBY. PATIENT IN STABLE CONDITION, NO S/S OF DISTRESS NOTED. NO PAIN VOICED. IV REMOVED WITH TIP INTACT. ALL PERSONAL ITEMS TAKEN WITH THE PATIENT. DISCHARGE TEACHING AND INSTRUCTION GIVEN TO THE PATIENT.PATIENT VERBALIZED UNDERSTANDING. DISCHARGE PAPERWORK AND PRESCRIPTIONS GIVEN TO THE PATIENT.
--- NOTE | 2020-07-26 00:23 | Discharge Summary ---
DISCHARGE DIAGNOSIS: Sepsis secondary to gastroenteritis, hypertension, and weakness. HISTORY OF PRESENT ILLNESS AND HOSPITAL COURSE: The patient is a lady, who recently discharged home, who unfortunately at home started having significant watery diarrhea to the point that she became very weak, so she was brought into the emergency room where she was admitted for sepsis secondary to gastroenteritis. She was placed on IV antibiotics with significant resolution of her gastroenteritis. She was overall weak, she was offered [facility] facility, which she refused, so she was discharged home with p.o. antibiotics and to follow up in 1 week with me. Please see hospital chart for full details. MD FAITH Tracey/MICHELLE /[id number]
== END 2020-07-15 12:41 | disposition home or self-care (01) | DRG 872 ==
LOC: ER 21:37 → ERHOLD 07-10 00:56 → MED/SURG2 07-10 02:03 → OBSVTOIN 07-11 14:39
PROVIDERS: ADMIT Internal Medicine; ATTEND Internal Medicine
DX: A41.9 Sepsis, unspecified organism (principal); A09 Infectious gastroenteritis and colitis, unspecified; E87.2 Acidosis; I12.9 Hypertensive chronic kidney disease with stage 1 through stage 4 chronic kidney disease, or unspecified chronic kidney disease; N18.30 Chronic kidney disease, stage 3 unspecified; Z88.1 Allergy status to other antibiotic agents; Z88.5 Allergy status to narcotic agent; Z88.2 Allergy status to sulfonamides; Z88.8 Allergy status to other drugs, medicaments and biological substances; E03.9 Hypothyroidism, unspecified; E78.5 Hyperlipidemia, unspecified; D64.9 Anemia, unspecified; Z11.59 Encounter for screening for other viral diseases
CPT/HCPCS: 36415; 71045; 74177; 80053; 81001; 82550; 82553; 83605; 83735; 84484; 85025; 87040; 87086; 87493; 93005; 97139; 99284; G0378; J1940; J2405; J2543; J7030; Q9967

== ENCOUNTER 2020-08-23 11:46 | Emergency (ER) | payer MEDICARE ==
[~2020-08-23] VITALS: Ht 160 cm; Wt 67.6 kg
[~2020-08-23 11:46] MED LIST changes: +FLAGYL250 MG PO
[2020-08-23] MEDS: DIAZEPAM 2 MG TAB PO ONE (12:15)
[2020-08-23] MEDS: HYDROCODONE/APAP 5MG-325MG TAB PO ONE (12:18)
--- OUTSIDE RECORDS SUMMARY | 2020-08-23 12:38 | XMS REPORT | Continuity of Care Document ---
Author Author [facility] t Organization [facility] Address [address] [place] [address] Phone Unavailable Care Team Providers Care Security Police Officer Name Role Phone GARY RUBY, MD RIVAS PCP Iva GARCIAS Attphys Unavailable ROB VEGA Attphys Unavailable SWEETCathryn Attphys Unavailable JESUS ALBERTO, T RULA Attphys Unavailable PRINCESSKelly DOMINGUEZ INNA Attphys Unavailable JESSE, P DHRUV Attphys Unavailable ROB VEGA Admphys Unavailable Payers Payer Name Policy Type Policy Number Effective Date Expiration Date [facility] [id number] 2019 00:00:00 [facility] Cdc Review [id number] [facility] Problems Condition Name Condition Details Condition Category Status Onset Date Resolution Date Last Treatment Date Treating Clinician Comments Source Diarrhea Diarrhea Problem Active 2015-08-20 00:00:00 [facility] Chest pain Chest pain Problem Active [facility] Dizziness Dizziness Problem Active [facility] Hypertension Hypertension Problem Active [facility] Syncope Syncope Problem Active [facility] Nausea Nausea Problem Active [facility] Unstable angina pectoris Unstable angina Problem Active [facility] Weakness Problem Active [facility] Fall Problem Active [facility] Contusion of left hip Problem Active [facility] Pain of left hip Problem Active [facility] Urinary tract infection Problem Active [facility] Muscle spasm Problem Active [facility] Sepsis Problem Active [facility] Pneumonia Problem Active [facility] Abnormal kidney function Problem Active [facility] Fever Problem Active [facility] Diarrhea of infectious origin Problem Active [facility] Allergies, Adverse Reactions, Alerts Allergy Name Allergy Type Status Severity Reaction(s) Onset Date Inacti ve Date Treating Clinician Comments Source Cefuroxime Allergy to substance Active 2020-03-17 00:00:00 [facility] Codeine Propensity to adverse reactions Active Moderate GONZALEZ UCINATIONS 2018-10-16 00:00:00 [facility] Labetalol Allergy to substance Active Mild SEVERE WEAKNESS 201 06-02-15 00:00:00 [facility] Sulfamethoxazole Propensity to adverse reactions Active Severe NONAROUSABLE 2018-10-16 00:00:00 [facility] Trimethoprim Propensity to adverse reactions Active Severe NO NAROUSABLE 2018-10-16 00:00:00 [facility] Promethazine Allergy to substance Active Severe UNCONCIOUS 10-16 00:00:00 [facility] Levofloxacin Allergy to substance Active Severe Unconscious 2018 00:00:00 [facility] Family History Family Member Diagnosis Comments Start Date Stop Date Source 33 FATHER Family history of hypertension [facility] 33 FATHER Family history of malignant neoplasm of prostate [facility] 32 MOTHER Family history of acute myocardial infarction [facility] Social History Social Habit Start Date Stop Date Quantity Comments Source Sex Assigned At 1940 00:00:00 1940 00:00:00 Female [facility] Medications Ordered Medication Name Filled Medication Name Start Date Stop Da te Current Medication? Ordering Clinician Indication Dosage Frequency Signature (SIG) Comments Components Source Amlodipine Besylate Amlodipine Besylate Yes 5 Daily [facility] Aspirin (Aspir 81) 81 Mg TABLET. Aspirin (Aspir 81) 81 Mg TABLET. Yes 81 Bedtime [facility] Calcium Carbonate (Tums) 300 Mg TAB.CHEW Calcium Carbo lucas (Tums) 300 Mg TAB.CHEW Yes 1 Every 6 Hours as needed for I ndigestion [facility] Calcium Carbonate/Vitamin D3 (Os-Ronald 500+D Tablet) 1 E ach TABLET Calcium Carbonate/Vitamin D3 (Os-Ronald 500+D Tablet) 1 Each TABLET Yes 500 Twice A Day [facility] Clopidogrel Bisulfate (Clopidogrel) 75 Mg TABLET Clopi dogrel Bisulfate (Clopidogrel) 75 Mg TABLET Yes 75 Daily [facility] Levothyroxine Sodium Levothyroxine Sodium Yes 100 Daily [facility] Liothyronine Sodium Liothyronine Sodium Yes 15 Daily [facility] Lovastatin Lovastatin Yes 40 Bedtime [facility] Metronidazole (Flagyl) 250 Mg TABLET Metronidazole (Flagyl) 250 Mg TABLET Yes 500 Three Times A Day [facility] Cephalexin Cephalexin 2020-03-17 00:00:00 No 500 Twi ce A Day [facility] Diphenhydramine Hcl (Benadryl) 25 Mg CAPSULE Diphenhyd ramine Hcl (Benadryl) 25 Mg CAPSULE 2020-03-17 00:00:00 No 25 Bedtime as ne eded for Insomnia [facility] Ibuprofen Ibuprofen 2020-03-17 00:00:00 No 600 Every 8 Hours as needed for Moderate Pain (4-6) [facility] Tramadol/Apa Tramadol/Apa 2020-03-17 00:00:00 No 1 Every 6 Hours as needed for Moderate Pain (4-6) [facility] Labetalol Hcl Labetalol Hcl 2018-10-16 00:00:00 No 50 Twice A Day [facility] Amlodipine Amlodipine 2018-03-08 00:00:00 No 5 Amaya ly [facility] Atenolol Atenolol 2018-03-08 00:00:00 No 100 Bedtime [facility] Benazepril Hcl Benazepril Hcl 2018-03-08 00:00:00 No 20 Bedtime [facility] Clopidogrel Bisulfate (Clopidogrel) 75 Mg TABLET Clopi dogrel Bisulfate (Clopidogrel) 75 Mg TABLET 2018-03-08 00:00:00 No 75 Daily [facility] Ticagrelor (Brilinta) 90 Mg TABLET Ticagrelor (Brilinta) 90 Mg T [facility] 2018-03-08 00:00:00 No 90 Twice A Day [facility] Amlodipine Besylate Amlodipine Besylate 2018-02-05 00:00:00 No 5 Daily [facility] Omeprazole Omeprazole 2018-01-14 00:00:00 No 40 Amaya ly [facility] Cephalexin (Keflex) 250 Mg CAPSULE Cephalexin (Keflex) 250 Mg CA PSULE 2017-01-14 00:00:00 No 250 Twice A Day [facility] Docusate Sodium (Colace) 100 Mg CAP Docusate Sodium (Colace) 100 Mg CAP 2016-03-27 00:00:00 No 100 Twice A Day [facility] Tramadol Hcl (Ultram) 50 Mg TABLET Tramadol Hcl (Ultram) 50 Mg T [facility] 2016-03-27 00:00:00 No 50 Every 4 Hours as nee ded for Pain [facility] Aspirin Aspirin 2015-10-17 00:00:00 No 81 Bedtime [facility] Methocarbamol (Robaxin-750) 750 Mg TABLET Methocarbamo l (Robaxin-750) 750 Mg TABLET 2015-07-27 00:00:00 No 750 Three Times A Day [facility] [place]-3 Fatty Acids/Fish Oil ([place] 3 Fish Oil Softgel ) 1 Each CAPSULE.DR Frazier- 3 Fatty Acids/Fish Oil ([place] 3 Fish Oil Softgel) 1 Each CAPSULE. 2015-07-27 00:00:00 No [facility] Tramadol Hcl (Ultram 50MG*) 50 Mg TAB Tramadol Hcl (Ultram 50MG* ) 50 Mg TAB 2015-07-27 00:00:00 No 50 Every 6 Hours for Pa in [facility] Ubidecarenone (Co Q-10) 10 Mg CAPSULE Ubidecarenone (Co Q-10) 10 Mg CAPSULE 2015-07-27 00:00:00 No [facility] Aspirin (Aspirin Chew) 81 Mg CHEW Aspirin (Aspirin Chew) 81 Mg C HEW 2014-07-27 00:00:00 No 81 Bedtime [facility] Atenolol Atenolol 2014-07-27 00:00:00 No 100 Bedtime [facility] Benazepril Hcl Benazepril Hcl 2014-07-27 00:00:00 No 40 Bedtime [facility] Calcium Carbonate (Oscal D) 500 Mg TAB Calcium Carbonate (Oscal D) 500 Mg TAB 2014-07-27 00:00:00 No 500 Three Times A Day [facility] Levothyroxine Sodium Levothyroxine Sodium 2014-07-27 00:00:00 No 75 Daily [facility] Liothyronine Sodium Liothyronine Sodium 2014-07-27 00:00:00 No 5 Daily [facility] Lovastatin Lovastatin 2014-07-27 00:00:00 No 40 Bed time [facility] Omeprazole Omeprazole 2014-07-27 00:00:00 No 40 Amaya ly [facility] Ubidecarenone (Coq-10) 30 Mg CAPSULE Ubidecarenone (Coq-10) 30 M g CAPSULE 2014-07-27 00:00:00 No 30 Daily [facility] Azilsartan Medoxomil (Edarbi) 40 Mg TABLET Azilsartan Medoxomil (Edarbi) 40 Mg TABLET 2013-03-03 00:00:00 No Daily [facility] Nisoldipine Nisoldipine 2013-01-19 00:00:00 No 8.5 T wice A Day [facility] Vital Signs Vital Name Observation Time Observation Value Comments Source Body Temperature 2020-07-15 11:46:00 97.6 [degF] [facility] BMI (Body Mass Index) 2020-07-10 03:26:00 26.4 kg/m2 [facility] Weight 2020-07-10 02:28:00 149.25 [lb_av] [facility] Weight 2020-07-09 05:35:00 149.19 [lb_av] [facility] BMI (Body Mass Index) 2020-07-09 05:35:00 26.4 kg/m2 [facility] Body Temperature 2020-07-09 04:00:00 97.6 [degF] [facility] Weight 2020-07-05 09:12:00 145 [lb_av] [facility] BMI (Body Mass Index) 2020-07-05 09:12:00 25.7 kg/m2 [facility] Body Temperature 2020-04-21 13:00:00 98.5 [degF] [facility] Procedures Procedure Date / Time Performed Performing Clinician [facility] e Computed tomography of abdomen and pelvis with contrast 00:00:00 [facility] Computed tomography of brain without radiopaque contrast 2020-07 00:00:00 [facility] Computed tomography of cervical spine without contrast 4 00:00:00 [facility] EXTIRPATION OF MATTER FROM L INT CAROTID, OPEN APPROACH 00:00:00 [facility] SUPPLEMENT L COM CAROTID WITH SYNTH SUB, OPEN APPROACH 2020-04-02 0 00:00:00 [facility] SUPPLEMENT L INT CAROTID WITH SYNTH SUB, OPEN APPROACH 2020-04-02 0 00:00:00 [facility] Magnetic resonance imaging of brain without contrast 2020-04-16 00:00:[address] [facility] [address] angiography of neck 2020-04-14 00:00:00 [facility] Computed tomography of brain without radiopaque contrast 2020-04 00:00:00 [facility] Computed tomography of cervical spine without contrast 2020-07-1 2 00:00:[address] [facility] [address] angiogram extremity lower w contrast 2020-03-19 00:00:00 [facility] X-ray of chest, two views 2019-11-17 00:00:00 RULA GRANDA [facility] Plan of Care Planned Activity Planned Date Details Comments Source Instructions Diarrhea - Adult [facility] Instructions Kidney Failure [facility] Encounters Start Date/Time End Date/Time Encounter Type Ad[facility] Type [facility] Care Department Encounter ID Source 2020-07-11 14:39:00 2020-07-15 12:41:00 Discharged Inpatient 1 ERICA GARCIAS [facility] [id number] [facility] 2020-07-06 05:54:00 2020-07-09 08:41:00 Discharged Inpatient 1 ROB VEGA [facility] [id number] [facility] 2020-07-05 09:15:00 2020-07-05 13:25:00 Departed Emergency Room 1 GIL [facility] [id number] [facility] 2020-04-14 14:04:00 2020-04-21 16:34:00 Discharged Inpatient 1 ROB VEGA [facility] [id number] [facility] 2020-03-17 18:35:00 2020-03-20 16:00:00 Discharged Inpatient (obs) 1 ROB VEGA [facility] [id number] [facility] 2019-11-17 10:41:00 2019-11-18 14:22:00 Discharged Inpatient (obs) 1 RULA GRANDA [facility] [id number] [facility] 2019-08-17 12:50:00 2019-08-17 16:56:00 Departed Emergency Room 1 JMI CORDERO [facility] [id number] [facility] 2019-05-17 11:54:00 2019-05-17 11:54:00 Outpatient [facility] 2018-10-16 17:46:00 2018-10-16 19:36:00 Departed Emergency Room [facility] [id number] [facility] [place] 2018-03-26 08:38:00 2018-03-26 12:16:00 Departed Emergency Room 1 INNA SÁNCHEZ [id number] [facility] 2018-03-08 07:53:00 2018-03-08 09:40:00 Departed Emergency Room [facility] [id number] [facility] [place] 2018-02-15 10:56:00 2018-02-15 17:43:00 Departed Emergency Room 1 DHRUV MOLINA [facility] [id number] [facility] 2018-02-09 07:07:00 2018-02-09 07:07:00 Registered Surgical Day Care [facility] [id number] [facility] [place] 2018-02-05 14:04:00 2018-02-06 18:50:00 Discharged Inpatient (obs) ER ROB VEGA [facility] [id number] [facility] 2018-01-14 13:22:00 2018-01-14 13:54:00 Departed Emergency Room [facility] [id number] [facility] [place] 2017-11-26 14:58:00 2017-11-26 16:48:00 Departed Emergency Room [facility] [id number] [facility] [place] 2017-06-17 18:45:00 2017-06-17 21:23:00 Departed Emergency Room ER ERICA GARCIAS [facility] [id number] [facility] 2017-05-10 06:46:00 2017-05-10 06:46:00 Registered Surgical Day Care [facility] [id number] [facility] [place] 2017-05-07 13:26:00 2017-05-07 15:25:00 Departed Emergency Room [facility] [id number] [facility] 2017-04-18 07:04:00 2017-04-18 07:04:00 Registered Clinic [facility] [id number] [facility] 2017-04-12 13:37:00 2017-04-12 19:02:00 Departed Emergency Room [facility] [id number] [facility] 2017-03-15 12:00:00 2017-03-15 12:00:00 Registered Clinic [facility] [id number] [facility] 2017-02-13 08:02:00 2017-02-13 08:02:00 Registered Clinic [facility] [id number] [facility] Results Test Description Test Time Test Comments Results Result Comments Source Blood leukocytes automated count (number/volume) 2020-07-15 05:16:00 Test Item White Blood Count (test code = 6690-2) 12.88 4.8-10.8 [facility] automated count (number/volume)2020-07-15 05:16:00* Test Item Value Reference Range Interpretation Comments Red Blood Count (test code = 789-8) 4.26 3.6-5.1 [facility] hemoglobin measurement (moles/volume)2020-07-15 05:16:00* Test Item Value Reference Range Interpretation Comments Hemoglobin (test code = 72683-8) 12.7 12.0-16.0 [facility] Center[facility] blood hematocrit (volume fraction)2020-07-15 05:16:00* Test Item Value Reference Range Interpretation Comments Hematocrit (test code = 4544-3) 39.6 34.2-44.1 [facility] Center[facility] erythrocyte mean corpuscular [id number] 05:16:00* Test Item Value Reference Range Interpretation Comments Mean Corpuscular Volume (test code = 787-2) 93.0 81-99 [facility] Center[facility] erythrocyte mean corpuscular hemoglobin (mass per erythrocyte)2020-07-15 05:16:00* Test Item Value Reference Range Interpretation Comments Mean Corpuscular Hemoglobin (test code = 785-6) 29.8 28-32 [facility] CenterAutom[facility] erythrocyte mean corpuscular hemoglobin concentration measurement (mass/volume)2020-07-15 05:16:00* Test Item Value Reference Range Interpretation Comments Mean Corpuscular Hemoglobin Concent (test code = 786-4) 32.1 31-35 [facility] CenterRDW [id number]-[id number] 05:16:00* Test Item Value Reference Range Interpretation Comments Red Cell Distribution Width (test code = 37758-6) 13.4 11.7 -14.4 [facility] Center[facility] blood platelet count (count/volume)2020-07-15 05:16:00* Test Item Value Reference Range Interpretation Comments Platelet Count (test code = 777-3) 378 140-360 [facility] CenterAutom[facility] blood segmented neutrophil count as percentage of total peolwbjcyy8011-54-97 05:16:00* Test Item Value Reference Range Interpretation Comments Neutrophils (%) (Auto) (test code = 37365-2) 75.5 38.7-80.0 [facility] CenterAutom[facility] blood lymphocyte count as percentage ot total lgyomlymsq8452-16-32 05:16:00* Test Item Value Reference Range Interpretation Comments Lymphocytes (%) (Auto) (test code = 736-9) 14.9 18.0-39.1 [facility] CenterAutom[facility] blood monocyte count as percentage of total haleuijwzg3409-91-26 05:16:00* Test Item Value Reference Range Interpretation Comments Monocytes (%) (Auto) (test code = 5905-5) 8.1 4.4-11.3 [facility] CenterAutom[facility] blood eosinophil count as percentage of total nqgzkkxahh8101-72-15 05:16:00* Test Item Value Reference Range Interpretation Comments Eosinophils (%) (Auto) (test code = 713-8) 0.4 0.0-6.0 [facility] CenterAutom[facility] blood basophil count as percentage of total itsekyhnzi7144-69-15 05:16:00* Test Item Value Reference Range Interpretation Comments Basophils (%) (Auto) (test code = 706-2) 0.5 0.0-1.0 [facility] CenterFluoroscopic procedure less than one hour [id number] 05:16:00* Test Item Value Reference Range Interpretation Comments IM GRANULOCYTES % (test code = IM GRANULOCYTES %) 0.6 0.0- 1.0 [facility] CenterAutom[facility] blood neutrophil count 2020-07-15 05:16:00* Test Item Value Reference Range Interpretation Comments Neutrophils # (Auto) (test code = 751-8) 9.7 2.1-6.9 [facility] lymphocytes count (number/volume) 2020-07-15 05:16:00* Test Item Value Reference Range Interpretation Comments Lymphocytes # (Auto) (test code = 40642-9) 1.9 1.0-3.2 [facility] monocytes automated count (number/volume)2020-07-15 05:16:00* Test Item Value Reference Range Interpretation Comments Monocytes # (Auto) (test code = 742-7) 1.0 0.2-0.8 [facility] CenterAutom[facility] blood eosinophil count 2020-07-15 05:16:00* Test Item Value Reference Range Interpretation Comments Eosinophils # (Auto) (test code = 711-2) 0.1 0.0-0.4 [facility] CenterAutom[facility] blood basophil count (count/volume)2020-07-15 05:16:00* Test Item Value Reference Range Interpretation Comments Basophils # (Auto) (test code = 704-7) 0.1 0.0-0.1 [facility] CenterFluoroscopic procedure less than one hour gubqcupz7951-64-52 05:16:00* Test Item Value Reference Range Interpretation Comments Absolute Immature Granulocyte (auto (idania t code = Absolute Immature Granulocyte (auto) 0.08 0-0.1 [facility] sodium measurement (moles/volume)2020-07-15 05:16:00* Test Item Value Reference Range Interpretation Comments Sodium Level (test code = 2951-2) 140 136-145 [facility] potassium measurement (moles/volume)2020-07-15 05:16:00* Test Item Value Reference Range Interpretation Comments Potassium Level (test code = 2823-3) 3.7 3.5-5.1 [facility] chloride measurement (moles/volume)2020-07-15 05:16:00* Test Item Value Reference Range Interpretation Comments Chloride Level (test code = 2075-0) 105 98-107 [facility] plasma carbon dioxide, total measurement (moles/volume)2020-07-15 05:16:00* Test Item Value Reference Range Interpretation Comments Carbon Dioxide Level (test code = 2028-9) 25 22-29 [facility] or plasma anion [id number] 05:16:00* Test Item Value Reference Range Interpretation Comments Anion Gap (test code = 86643-0) 13.7 8-16 [facility] plasma urea nitrogen measurement (mass/volume)2020-07-15 05:16:00* Test Item Value Reference Range Interpretation Comments Blood Urea Nitrogen (test code = 3094-0) 9 7-26 [facility] plasma creatinine measurement (mass/volume)2020-07-15 05:16:00* Test Item Value Reference Range Interpretation Comments Creatinine (test code = 2160-0) 1.02 0.57-1.11 [facility] plasma urea nitrogen/creatinine mass kbugk4384-63-25 05:16:00* Test Item Value Reference Range Interpretation Comments BUN/Creatinine Ratio (test code = 3097-3) 9 6-25 [facility] CenterEstimated glomerular filtration rate (GFR) kjfyhiohqqlmt0935-11-13 05:16:00* Test Item Value Reference Range Interpretation Comments Estimat Glomerular Filtration Rate (test code = 824152598) 52 >60 Ranges were taken from the National Kidney Disease Education Program and the [place] [employer] literature.Reference ranges:60 or greater: Pswruw90-98 ( for 3 consecutive months): Chronic kidney disease 15 or less: Kidney failureD[facility] Regional Medical CenterGlucose aypfgchwxmx6317-39-96 05:16:00* Test Item Value Reference Range Interpretation Comments Glucose Level (test code = NYL2757) 78 74-118 [facility] calcium measurement (mass/volume)2020-07-15 05:16:00* Test Item Value Reference Range Interpretation Comments Calcium Level (test code = 75815-2) 9.4 8.4-10.2 [facility] plasma magnesium measurement (mass/volume)2020-07-15 05:16:00* Test Item Value Reference Range Interpretation Comments Magnesium Level (test code = 96364-7) 1.6 1.3-2.1 [facility] plasma total bilirubin measurement (mass/volume)2020-07-15 05:16:00* Test Item Value Reference Range Interpretation Comments Total Bilirubin (test code = 1975-2) 0.4 0.2-1.2 [facility] CenterFluoroscopic procedure less than one hour atcuznmp3752-02-00 05:16:00* Test Item Value Reference Range Interpretation Comments Aspartate Amino Transf (AST/SGOT) (test code = Aspartate Amino Transf (AST/SGOT)) 11 5-34 [facility]um or plasma alanine aminotransferase measurement (enzymatic activity/volume)2020-07-15 05:16:00* Test Item Value Reference Range Interpretation Comments Alanine Aminotransferase (ALT/SGPT) (test code = 1742-6) 20 0-55 [facility] or plasma protein measurement (mass/volume)2020-07-15 05:16:00* Test Item Value Reference Range Interpretation Comments Total Protein (test code = 2885-2) 5.3 6.5-8.1 [facility] albumin measurement (mass/volume)2020-07-15 05:16:00* Test Item Value Reference Range Interpretation Comments Albumin (test code = 1751-7) 2.4 3.5-5.0 [facility] CenterPlasma globulin measurement (mass/volume) 2020-07-15 05:16:00* Test Item Value Reference Range Interpretation Comments Globulin (test code = 30828-6) 2.9 2.3-3.5 [facility] plasma albumin/globulin mass lzxwz8930-81-43 05:16:00* Test Item Value Reference Range Interpretation Comments Albumin/Globulin Ratio (test code = 1759-0) 0.8 0.8-2.0 [facility] or plasma alkaline phosphatase measurement (enzymatic activity/volume)2020-07-15 05:16:00* Test Item Value Reference Range Interpretation Comments Alkaline Phosphatase (test code = 6768-6) 112 40-150 [facility] CenterFluoroscopic procedure less than one hour lnmokees2641-42-36 00:43:00* Test Item Value Reference Range Interpretation Comments Lactic Acid Level (test code = Lactic Acid Level) 1.0 0.5- 2.0 [facility] CenterUrine color xwiiacrfdxayr7855-41-02 00:05:00* Test Item Value Reference Range Interpretation Comments Urine Color (test code = 5778-6) YELLOW YELLOW [facility] CenterUrine cqhlxka0638-56-85 00:05:00* Test Item Value Reference Range Interpretation Comments Urine Clarity (test code = 70142-0) CLEAR CLEAR [facility] Urine by Test strip 2020-07-10 00:05:00* Test Item Value Reference Range Interpretation Comments Urine Specific [place] (test code = 5811-5) 1.010 1.010-1.02 5 [facility] CenterUrine pH measurement by automated test qqfnu0852-89-00 00:05:00* Test Item Value Reference Range Interpretation Comments Urine pH (test code = 17017-4) 5 5-7 [facility] CenterUrine leukocyte esterase detection by ntjcucew3165-37-98 00:05:00* Test Item Value Reference Range Interpretation Comments Urine Leukocyte Esterase (test code = 5799-2) NEGATIVE NEGATIVE [facility] CenterUrine nitrite uyxrzdivo6775-93-51 00:05:00* Test Item Value Reference Range Interpretation Comments Urine Nitrite (test code = 05821-6) NEGATIVE NEGATIVE [facility] CenterUrine protein measurement by test strip (mass/volume)2020-07-10 00:05:00* Test Item Value Reference Range Interpretation Comments Urine Protein (test code = 5804-0) NEGATIVE NEGATIVE [facility] CenterUrine glucose ljfznfxoi0556-98-88 00:05:00* Test Item Value Reference Range Interpretation Comments Urine Glucose (UA) (test code = 2349-9) NEGATIVE NEGATIVE [facility] CenterUrine ketones detection by automated test ozsvq4978-71-05 00:05:00* Test Item Value Reference Range Interpretation Comments Urine Ketones (test code = 52655-4) NEGATIVE NEGATIVE [facility] CenterUrine urobilinogen measurement by test strip (mass/volume)2020-07-10 00:05:00* Test Item Value Reference Range Interpretation Comments Urine Urobilinogen (test code = 45579-6) 0.2 0.2-1 [facility] CenterUrine total bilirubin measurement (mass/volume)2020-07-10 00:05:00* Test Item Value Reference Range Interpretation Comments Urine Bilirubin (test code = 1978-6) NEGATIVE NEGATIVE [facility] CenterUrine erythrocytes ngkolnjsu5192-13-00 00:05:00* Test Item Value Reference Range Interpretation Comments Urine Blood (test code = 80387-6) NEGATIVE NEGATIVE [facility] CenterAutomated urine sediment leukocyte count by microscopy (number/high power field)2020-07-10 00:05:00* Test Item Value Reference Range Interpretation Comments Urine WBC (test code = 5821-4) 0-5 0-5 [facility] CenterErythrocytes detection in urine sediment by light slinymztiz7736-79-67 00:05:00* Test Item Value Reference Range Interpretation Comments Urine RBC (test code = 84120-7) 0-5 0-5 [facility] CenterBacteria detection in urine sediment by light saqrhurwfq4575-27-11 00:05:00* Test Item Value Reference Range Interpretation Comments Urine Bacteria (test code = 56879-7) FEW NONE [facility] CenterEpithelial cells detection in urine sediment by light hoiplqaabi7631-89-49 00:05:00* Test Item Value Reference Range Interpretation Comments Urine Epithelial Cells (test code = 84296-0) FEW NONE [facility]2020-07-09 23:27:00 [place] [address] Patient Name: VICKI ESPARZA MR #: [id number] : 1940 Age/Sex: 79/F Req #: [id number] Adm Physician: Ordered by: ERICA GARCIAS MD Report #: [id number] Location: ER Room/Bed: Procedure: [id number] DX/ CHEST SINGLE (PORTABLE) Exam Date: 07/09/20 Exam Canelo e: 2300 REPORT STATUS: Signed EX AMINATION: CHEST SINGLE (PORTABLE) INDICATION: fever COMPARISON: Radiograph dated 07/06/2020. FINDINGS: TUBES and LINES: None . LUNGS AND PLEURA: Hazy bibasilar densities and blunting of the costophre gilmar angles likely correspond to small pleural effusions as seen on same-day CT . Otherwise, no consolidation. No pneumothorax. HEART AND MEDIASTINUM: T he cardiomediastinal silhouette is unremarkable. BONES AND SOFT TISSUES : No acute osseous lesion. Soft tissues are unremarkable. IMPRESSION: New small pleural effusions. No consolidation Signed by: Lesley Leiva MD on 07/09/2020 11:31 PM Dictated By: LESLEY LEIVA MD 2331 Transcribed By: TROY on 0 2331 COPY TO: ERICA GARCIAS MD CT ABDOMEN/PELVIS W 2020-07-09 23:13:[address], [place], [place] [address] Patient Name: VICKI ESPARZA MR #: [id number] : 1940 Age/Sex: 79/F Req #: [id number] Adm Physician: Ordered by: ERICA GARCIAS MD Report #: [id number] Location: ER Room/Bed: Procedure: [id number] CT/ CT ABDOMEN/PELVIS W Exam Date: 07/09/20 Exam Time: 2 245 REPORT STATUS: Signed EXAM: CT Abdomen and Pelvis WITH contrast INDICATION: Y abd pain, feve r, diarrhea [id number] Y COMPARISON: TECHNIQUE: Abdomen and pe lvis were scanned utilizing a multidetector helical scanner from the lung base to the pubic symphysis after administration of IV contrast. Coronal and sagit latanya reformations were obtained. Routine protocol was performed. Scan was perfo rmed when during portal venous phase. IV CONTRAST: 100 mL of Isovue 3 70 ORAL CONTRAST: None COMPLICATIONS: None FINDINGS : LOWER THORAX: Small pleural effusions with mild adjacent compressive a telectasis. HEPATOBILIARY: There is intra- and extra- hepatic biliary di lation likely post cholecystectomy reservoir effect. No suspicious hepatic le sions. Portal and hepatic veins are patent. GALLBLADDER: There are cholec ystectomy clips. SPLEEN: No splenomegaly. PANCREAS: No focal masses or ductal dilatation. 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 Minimal s tranding about the left kidney, no significant changed. Subcentimeter cortical hypodensities are too small to characterize, likely cysts. No hydronephrosis. GI TRACT: No abnormal distention, wall thickening, or evidence of bowel obstruction. There are diverticula within the colon without evidence of dive rticulitis. Appendix is not clearly identified. There is however no fat stran ding or adenopathy in the right lower quadrant to suggest appendicitis. Fluid within the sigmoid colon and rectum. PELVIC ORGANS/BLADDER: Unremarkable. LYMPH NODES: No lymphadenopathy. VESSELS: Atherosclerosis without aneur ysmal dilatation of the abdominal aorta.. PERITONEUM / RETROPERITONEUM: No free air or fluid. BONES: ORIF of the left femur.. Degenerative changes of the lumbar spine. IMPRESSION: Fluid within the sigmoid colon and rectum compatible with diarrheal illness. Otherwise, no acute abdominopelvic process . Signed by: Lesley Leiva MD on 07/09/2020 11:27 PM Dictated By: ISAEL LEIVA MD 26 Tra nscribed By: TROY on 07/09/202326 COPY TO: ERICA GARCIAS MD Fluoroscopic procedure less than one hour ctiynqgu1552-66-32 22:45:00* Test Item Value Reference Range Interpretation Comments Coronavirus (PCR) (test code = Coronavirus (PCR)) NOT DETECTED NOTD ETECTED SARS-CoV-2 PCRHologic Aptima SARS-CoV-2 assay is a nucleic amplification test in tended for the qualitative detection of RNA from SARS-CoV-2 from nasopharyngeal (NURSE EXAMINER) specimens. It is used under Emergency Use Authorization (EUA) by FDA.A posi tive result is indicative of the presence of SARS-CoV-2 RNA. Clinical correlatio n with patient history and other diagnostic information is necessary to determin e patient infection status.A negative (Not Detected) result does not preclude SA RS-CoV-2 infection. Clinical Correlation with patient history and other diagnost ic information should be used in patient management decisions.Invalid: Unable to generate a valid result on this specimen. Please submit a new specimen for repr at testing oc clinically indicated.Tesing performed by:[facility] Laboratory Services[address] [place] [address] [id number], Erica blancas MD, PhDDallas Regional Medical CenterClostridium difficile A and B toxin gzara7132-64-67 22:20:00* Test Item Value Reference Range Interpretation Comments Clostridium Difficile Toxin A & B (test code = 283911421) NEGATIVE NEGATIVE Testing on stool aspirate specimens is outside leather piece inspector claims since specime n type not validated on this assay.[facility] Hospitalerum or plasma creatine kinase measurement (enzymatic activity/volume)2020-07-09 21:45:00* Test Item Value Reference Range Interpretation Comments Creatine Kinase (test code = 2157-6) 22 29-168 [facility] Hospitalerum or plasma creatine kinase MB measurement (mass/volume)2020-07-09 21:45:00* Test Item Value Reference Range Interpretation Comments Creatine Kinase MB (test code = 42528-9) 0.60 0-5.0 [facility] CenterTroponin I measurement by highly sensitive enzyme wkobrpfbuvv4564-91-49 21:45:00* Test Item Value Reference Range Interpretation Comments Troponin I (test code = 67687-4) < 0.001 0-0.300 [facility] CenterBlood jnbcfzw9255-41-49 21:45:00* Test Item Value Reference Range Interpretation Comments Blood Culture (test code = 29696284) NO GROWTH AFTER 5 DAYS, FINAL REPORT [facility] CenterBlst. [facility] leukocytes automated count (number/volume)2020-07-08 05:21:00* Test Item Value Reference Range Interpretation Comments White Blood Count (test code = 6690-2) 5.84 4.8-10.8 [facility] erythrocytes automated count (number/volume)2020-07-08 05:21:00* Test Item Value Reference Range Interpretation Comments Red Blood Count (test code = 789-8) 3.88 3.6-5.1 [facility] CenterBlood hemoglobin measurement (moles/volume)2020-07-08 05:21:00* Test Item Value Reference Range Interpretation Comments Hemoglobin (test code = 19721-0) 11.9 12.0-16.0 [facility] CenterAutomated blood hematocrit (volume fraction)2020-07-08 05:21:00* Test Item Value Reference Range Interpretation Comments Hematocrit (test code = 4544-3) 37.2 34.2-44.1 [facility] CenterAutomated erythrocyte mean corpuscular nnxvee4403-59-36 05:21:00* Test Item Value Reference Range Interpretation Comments Mean Corpuscular Volume (test code = 787-2) 95.9 81-99 [facility] CenterAutomated erythrocyte mean corpuscular hemoglobin (mass per erythrocyte)2020-07-08 05:21:00* Test Item Value Reference Range Interpretation Comments Mean Corpuscular Hemoglobin (test code = 785-6) 30.7 28-32 [facility] CenterAutomated erythrocyte mean corpuscular hemoglobin concentration measurement (mass/volume)2020-07-08 05:21:00* Test Item Value Reference Range Interpretation Comments Mean Corpuscular Hemoglobin Concent (test code = 786-4) 32.0 31-35 [facility] CenterRDW ThtDz-Vmn2464-33-07 05:21:00* Test Item Value Reference Range Interpretation Comments Red Cell Distribution Width (test code = 98267-5) 13.0 11.7 -14.4 [facility] CenterAutomated blood platelet count (count/volume)2020-07-08 05:21:00* Test Item Value Reference Range Interpretation Comments Platelet Count (test code = 777-3) 165 140-360 [facility] CenterAutunc health lenoired blood segmented neutrophil count as percentage of total sjawpzqxbe9680-93-99 05:21:00* Test Item Value Reference Range Interpretation Comments Neutrophils (%) (Auto) (test code = 28327-7) 77.1 38.7-80.0 [facility] CenterAutomated blood lymphocyte count as percentage ot total izrltqxrol6950-60-85 05:21:00* Test Item Value Reference Range Interpretation Comments Lymphocytes (%) (Auto) (test code = 736-9) 10.6 18.0-39.1 [facility] CenterAutomated blood monocyte count as percentage of total twdgrotzbt6126-76-25 05:21:00* Test Item Value Reference Range Interpretation Comments Monocytes (%) (Auto) (test code = 5905-5) 8.7 4.4-11.3 [facility] CenterAutomated blood eosinophil count as percentage of total llbzbvthuc2766-61-17 05:21:00* Test Item Value Reference Range Interpretation Comments Eosinophils (%) (Auto) (test code = 713-8) 2.4 0.0-6.0 [facility] CenterAutomated blood basophil count as percentage of total igrmrtvxut8274-77-91 05:21:00* Test Item Value Reference Range Interpretation Comments Basophils (%) (Auto) (test code = 706-2) 0.7 0.0-1.0 [facility] CenterFluoroscopic procedure less than one hour byslljcr6795-73-76 05:21:00* Test Item Value Reference Range Interpretation Comments IM GRANULOCYTES % (test code = IM GRANULOCYTES %) 0.5 0.0- 1.0 [facility] CenterAutomated blood neutrophil count 2020-07-08 05:21:00* Test Item Value Reference Range Interpretation Comments Neutrophils # (Auto) (test code = 751-8) 4.5 2.1-6.9 [facility] CenterBlood lymphocytes count (number/volume) 2020-07-08 05:21:00* Test Item Value Reference Range Interpretation Comments Lymphocytes # (Auto) (test code = 99171-8) 0.6 1.0-3.2 [facility] CenterBlst. [facility] monocytes automated count (number/volume)2020-07-08 05:21:00* Test Item Value Reference Range Interpretation Comments Monocytes # (Auto) (test code = 742-7) 0.5 0.2-0.8 [facility] CenterAutomated blood eosinophil count 2020-07-08 05:21:00* Test Item Value Reference Range Interpretation Comments Eosinophils # (Auto) (test code = 711-2) 0.1 0.0-0.4 [facility] CenterAutomated blood basophil count (count/volume)2020-07-08 05:21:00* Test Item Value Reference Range Interpretation Comments Basophils # (Auto) (test code = 704-7) 0.0 0.0-0.1 [facility] CenterFluoroscopic procedure less than one hour istbkbpr8458-11-70 05:21:00* Test Item Value Reference Range Interpretation Comments Absolute Immature Granulocyte (auto (idania t code = Absolute Immature Granulocyte (auto) 0.03 0-0.1 [facility] Hospitalerum or plasma sodium measurement (moles/volume)2020-07-08 05:21:00* Test Item Value Reference Range Interpretation Comments Sodium Level (test code = 2951-2) 141 136-145 [facility] Hospitalerum or plasma potassium measurement (moles/volume)2020-07-08 05:21:00* Test Item Value Reference Range Interpretation Comments Potassium Level (test code = 2823-3) 3.8 3.5-5.1 [facility] Hospitalerum or plasma chloride measurement (moles/volume)2020-07-08 05:21:00* Test Item Value Reference Range Interpretation Comments Chloride Level (test code = 2075-0) 114 98-107 [facility] Hospitalerum or plasma carbon dioxide, total measurement (moles/volume)2020-07-08 05:21:00* Test Item Value Reference Range Interpretation Comments Carbon Dioxide Level (test code = 2028-9) 19 22-29 [facility] Hospitalerum or plasma anion ajp1938-56-81 05:21:00* Test Item Value Reference Range Interpretation Comments Anion Gap (test code = 54264-8) 11.8 8-16 [facility] Hospitalerum or plasma urea nitrogen measurement (mass/volume)2020-07-08 05:21:00* Test Item Value Reference Range Interpretation Comments Blood Urea Nitrogen (test code = 3094-0) 19 7-26 [facility] Hospitalerum or plasma creatinine measurement (mass/volume)2020-07-08 05:21:00* Test Item Value Reference Range Interpretation Comments Creatinine (test code = 2160-0) 1.05 0.57-1.11 [facility] Hospitalerum or plasma urea nitrogen/creatinine mass nowpe0291-12-74 05:21:00* Test Item Value Reference Range Interpretation Comments BUN/Creatinine Ratio (test code = 3097-3) 18 6-25 [facility] CenterEstimated glomerular filtration rate (GFR) ubxchgpinlfph7570-88-83 05:21:00* Test Item Value Reference Range Interpretation Comments Estimat Glomerular Filtration Rate (test code = 205195044) 51 >60 Ranges were taken from the National Kidney Disease Education Program and the [facility] [employer] literature.Reference ranges:60 or greater: Lcfonk69-51 ( for 3 consecutive months): Chronic kidney disease 15 or less: Kidney failureDallas Regional Medical CenterGlucose wagxwzxexsa4395-15-08 05:21:00* Test Item Value Reference Range Interpretation Comments Glucose Level (test code = FKN0853) 77 74-118 [facility] Hospitalerum or plasma calcium measurement (mass/volume)2020-07-08 05:21:00* Test Item Value Reference Range Interpretation Comments Calcium Level (test code = 30001-5) 7.7 8.4-10.2 [facility] Hospitalerum or plasma total bilirubin measurement (mass/volume)2020-07-08 05:21:00* Test Item Value Reference Range Interpretation Comments Total Bilirubin (test code = 1975-2) 0.3 0.2-1.2 [facility] CenterFluoroscopic procedure less than one hour klavraxn0016-03-79 05:21:00* Test Item Value Reference Range Interpretation Comments Aspartate Amino Transf (AST/SGOT) (test code = Aspartate Amino Transf (AST/SGOT)) 61 5-34 [facility] Hospitalerum or plasma alanine aminotransferase measurement (enzymatic activity/volume)2020-07-08 05:21:00* Test Item Value Reference Range Interpretation Comments Alanine Aminotransferase (ALT/SGPT) (test code = 1742-6) 104 0-55 [facility] Hospitalerum or plasma protein measurement (mass/volume)2020-07-08 05:21:00* Test Item Value Reference Range Interpretation Comments Total Protein (test code = 2885-2) 4.4 6.5-8.1 [facility] Hospitalerum or plasma albumin measurement (mass/volume)2020-07-08 05:21:00* Test Item Value Reference Range Interpretation Comments Albumin (test code = 1751-7) 1.9 3.5-5.0 [facility] CenterPlasma globulin measurement (mass/volume) 2020-07-08 05:21:00* Test Item Value Reference Range Interpretation Comments Globulin (test code = 81085-5) 2.5 2.3-3.5 [facility] Hospitalerum or plasma albumin/globulin mass uxalt1451-71-25 05:21:00* Test Item Value Reference Range Interpretation Comments Albumin/Globulin Ratio (test code = 1759-0) 0.8 0.8-2.0 [facility] Hospitalerum or plasma alkaline phosphatase measurement (enzymatic activity/volume)2020-07-08 05:21:00* Test Item Value Reference Range Interpretation Comments Alkaline Phosphatase (test code = 6768-6) 131 40-150 [facility] Hospitalerum or plasma creatine kinase measurement (enzymatic activity/volume)2020-07-08 05:21:00* Test Item Value Reference Range Interpretation Comments Creatine Kinase (test code = 2157-6) 24 29-168 [facility] Hospitalerum or plasma creatine kinase MB measurement (mass/volume)2020-07-08 05:21:00* Test Item Value Reference Range Interpretation Comments Creatine Kinase MB (test code = 53723-1) 1.50 0-5.0 [facility] CenterTroponin I measurement by highly sensitive enzyme eqtnlsajoze5951-66-20 05:21:00* Test Item Value Reference Range Interpretation Comments Troponin I (test code = 02001-4) < 0.001 0-0.300 [facility] CenterCHEST SINGLE (PORTABLE)2020-07-06 08:32:00 [place] [address] Patient Name: VICKI ESPARZA MR #: [id number] : 1940 Age/Sex: 79/F Req #: [id number] Adm Physician: ROB VEGA MD Ordered by: STEF INMAN DO Report #: [id number] Location: MED/SURG3 Room/Bed: [facility] [place] Procedure: [id number] DX/CHEST SI NGLE (PORTABLE) Exam Date: 07/06/20 [...] COPY TO: STEF INMAN DO Urine color yxctuirrwhtha5749-13-09 06:02:00* Test Item Value Reference Range Interpretation Comments Urine Color (test code = 5778-6) YELLOW YELLOW [facility] CenterUrine mutbrit6749-58-01 06:02:00* Test Item Value Reference Range Interpretation Comments Urine Clarity (test code = 40946-4) CLEAR CLEAR [facility] Hospitalpecific gravity of Urine by Test strip 2020-07-06 06:02:00* Test Item Value Reference Range Interpretation Comments Urine Specific [place] (test code = 5811-5) 1.020 1.010-1.02 5 [facility] CenterUrine pH measurement by automated test bdevz4167-07-25 06:02:00* Test Item Value Reference Range Interpretation Comments Urine pH (test code = 09875-8) 5.5 5-7 [facility] CenterUrine leukocyte esterase detection by tlnjmvvy1836-55-41 06:02:00* Test Item Value Reference Range Interpretation Comments Urine Leukocyte Esterase (test code = 5799-2) NEGATIVE NEGATIVE [facility] CenterUrine nitrite ocoxngrvc6503-21-11 06:02:00* Test Item Value Reference Range Interpretation Comments Urine Nitrite (test code = 25845-5) NEGATIVE NEGATIVE [facility] CenterUrine protein measurement by test strip (mass/volume)2020-07-06 06:02:00* Test Item Value Reference Range Interpretation Comments Urine Protein (test code = 5804-0) NEGATIVE NEGATIVE [facility] CenterUrine glucose neztozile8986-87-09 06:02:00* Test Item Value Reference Range Interpretation Comments Urine Glucose (UA) (test code = 2349-9) NEGATIVE NEGATIVE [facility] CenterUrine ketones detection by automated test bhvsx2816-11-14 06:02:00* Test Item Value Reference Range Interpretation Comments Urine Ketones (test code = 29278-4) NEGATIVE NEGATIVE [facility] CenterUrine urobilinogen measurement by test strip (mass/volume)2020-07-06 06:02:00* Test Item Value Reference Range Interpretation Comments Urine Urobilinogen (test code = 68814-8) 0.2 0.2-1 [facility] CenterUrine total bilirubin measurement (mass/volume)2020-07-06 06:02:00* Test Item Value Reference Range Interpretation Comments Urine Bilirubin (test code = 1978-6) NEGATIVE NEGATIVE [facility] CenterUrine erythrocytes zpxkmnzwb9015-63-92 06:02:00* Test Item Value Reference Range Interpretation Comments Urine Blood (test code = 99524-2) NEGATIVE NEGATIVE [facility] CenterAutomated urine sediment leukocyte count by microscopy (number/high power field)2020-07-06 06:02:00* Test Item Value Reference Range Interpretation Comments Urine WBC (test code = 5821-4) 0-5 0-5 [facility] CenterErythrocytes detection in urine sediment by light yktplxaxcd4855-57-29 06:02:00* Test Item Value Reference Range Interpretation Comments Urine RBC (test code = 10171-8) 0-5 0-5 [facility] CenterBacteria detection in urine sediment by light tawgoshjmz5171-37-50 06:02:00* Test Item Value Reference Range Interpretation Comments Urine Bacteria (test code = 11536-8) RARE NONE [facility] CenterEpithelial cells detection in urine sediment by light xqilzwxhup0872-85-21 06:02:00* Test Item Value Reference Range Interpretation Comments Urine Epithelial Cells (test code = 22430-6) FEW NONE [facility] CenterFluoroscopic procedure less than one hour xtzwkobz3287-90-48 06:02:00* Test Item Value Reference Range Interpretation [...] under 564(g) of the ACT.Testing performed by [facility] [place] [id number] Regional Medical CenterArterial blood pH wvyqnxhydhc2209-38-61 05:55:00* Test Item Value Reference Range Interpretation Comments Arterial Blood pH (test code = 2744-1) 7.39 7.35-7.45 [facility] NmmZ7040-09-77 05:55:00* Test Item Value Reference Range Interpretation Comments Arterial Blood Partial Pressure CO2 (test code = 2019-05) 35 35-45 [facility] OsoU9132-49-96 05:55:00* Test Item Value Reference Range Interpretation Comments Arterial Blood Partial Pressure O2 (test code = 2019-05) 74 80-105 [facility] CenterArterial blood bicarbonate measurement (moles/volume)2020-07-06 05:55:00* Test Item Value Reference Range Interpretation Comments Arterial Blood HCO3 (test code = 1960-4) 21 22-26 [facility] CenterArterial cord blood carbon dioxide, total measurement by calculation (moles/volume)2020-07-06 05:55:00* Test Item Value Reference Range Interpretation Comments Arterial Blood Total CO2 (test code = 39202-2) 22 [facility] CenterArterial blood base excess by calculation 2020-07-06 05:55:00* Test Item Value Reference Range Interpretation Comments Arterial Blood Base Excess (test code = 1925-7) -4.0 -2-3 [facility] CenterArterial blood oxygen saturation hpfmphesxlz4326-38-71 05:55:00* Test Item Value Reference Range Interpretation Comments Arterial Blood Oxygen Saturation (test code = 2708-6) 95.0 95-98 [facility] CenterFluoroscopic procedure less than one hour iugzbgqv4070-82-52 05:55:00* Test Item Value Reference Range Interpretation Comments FiO2 (test code = FiO2) 21 [facility] CenterArterial blood pH bjsandylsay7732-11-09 05:55:00* Test Item Value Reference Range Interpretation Comments Arterial Blood pH (test code = 2744-1) 7.39 7.35-7.45 [facility] HxdY1881[facility]-29 05:55:00* Test Item Value Reference Range Interpretation Comments Arterial Blood Partial Pressure CO2 (test code = 2019-05) 35 35-45 [facility] MvdL8251-49-43 05:55:00* Test Item Value Reference Range Interpretation Comments Arterial Blood Partial Pressure O2 (test code = 2019-05) 74 80-105 [facility] CenterArterial blood bicarbonate measurement (moles/volume)2020-07-06 05:55:00* Test Item Value Reference Range Interpretation Comments Arterial Blood HCO3 (test code = 1960-4) 21 22-26 [facility] CenterArterial cord blood carbon dioxide, total measurement by calculation (moles/volume)2020-07-06 05:55:00* Test Item Value Reference Range Interpretation Comments Arterial Blood Total CO2 (test code = 16775-6) 22 [facility] CenterArterial blood base excess by calculation 2020-07-06 05:55:00* Test Item Value Reference Range Interpretation Comments Arterial Blood Base Excess (test code = 1925-7) -4.0 -2-3 [facility] CenterArterial blood oxygen saturation qnsgwtvzsaj0873-36-21 05:55:00* Test Item Value Reference Range Interpretation Comments Arterial Blood Oxygen Saturation (test code = 2708-6) 95.0 95-98 [facility] CenterFluoroscopic procedure less than one hour sfpacssz5769-75-80 05:55:00* Test Item Value Reference Range Interpretation Comments FiO2 (test code = FiO2) 21 [facility] CenterFluoroscopic procedure less than one hour vyarbyyx3658-91-80 05:32:00* Test Item Value Reference Range Interpretation Comments Lactic Acid Level (test code = Lactic Acid Level) 1.8 0.5- 2.0 [facility]-hVqx5381-84-17 05:30:00* Test Item Value Reference Range Interpretation Comments B-Type Natriuretic Peptide (test code = 16612-2) 86.1 0-100 [facility] plasma lipase measurement (enzymatic activity/volume)2020-07-06 05:30:00* Test Item Value Reference Range Interpretation Comments Lipase (test code = 3040-3) 92 8-78 [facility] CenterBlood fzmnipc6121-14-49 05:30:00* Test Item Value Reference Range Interpretation Comments Blood Culture (test code = 93844768) NO GROWTH AFTER 72 HOURS [facility]-rSxj4699-63-80 05:30:00* Test Item Value Reference Range Interpretation Comments B-Type Natriuretic Peptide (test code = 02280-5) 86.1 0-100 [facility]erum or plasma lipase measurement (enzymatic activity/volume)2020-07-06 05:30:00* Test Item Value Reference Range Interpretation Comments Lipase (test code = 3040-3) 92 8-78 [facility] CenterCT CERVICAL SPINE EK7537-39-19 11:39:00 [facility] [address] [address] Patient Name: VICKI ESPARZA MR #: [id number] : 1940 Age/Sex: 79/F Req #: [id number] Adm Physician: Ordered by: JIM CORDERO MD Report #: [id number] Location: [facility]/Bed: Procedure: [id number] CT/CT CERV ICAL SPINE WO Exam Date: 07/05/20 Exam Time: 0953 REPORT STATUS: Signed Examination: CT CERVICAL SPINE WO CONTRAST HISTORY: N HEADACHE ON ASA/PLAVIX, NECK NAREN N [id number]. COMPARISON:March 26, 2018 and April 02, [...] CORDERO MD CT BRAIN WO 2020-07-05 11:03:[address] [place] [address] Patient Name: VICKI ESPARZA MR #: [id number] : 1940 Age/Sex: 79/F Req #: [id number] Adm Physician: Ordered by: JIM CORDERO MD Report #: [id number] Location: ER Room/Bed: Procedure: [id number] CT/CT BRAI N WO Exam Date: 07/05/20 [...] CORDERO MD CHEST SINGLE (PORTABLE) 2020-07-05 10:08:[address] [place] [address] Patient Name: VICKI ESPARZA MR #: [id number] : 1940 Age/Sex: 79/F Req #: [id number] Adm Physician: Ordered by: JIM CORDERO MD Report #: [id number] Location: Room/Bed: Procedure: [id number] DX/CHEST S JAYCE (PORTABLE) Exam Date: 07/05/20 Exam Time: 09 REPORT STATUS: Signed EXAMINATI ON: CHEST SINGLE [...] Count (test code = 6690-2) 7.28 4.8-10.8 [facility] CenterBlst. [facility] erythrocytes automated count (number/volume)2020-07-05 09:25:00* Test Item Value Reference Range Interpretation Comments Red Blood Count (test code = 789-8) 5.06 3.6-5.1 [facility] CenterBlood hemoglobin measurement (moles/volume)2020-07-05 09:25:00* Test Item Value Reference Range Interpretation Comments Hemoglobin (test code = 27982-2) 15.1 12.0-16.0 [facility] CenterAutomated blood hematocrit (volume fraction)2020-07-05 09:25:00* Test Item Value Reference Range Interpretation Comments Hematocrit (test code = 4544-3) 47.4 34.2-44.1 [facility] CenterAutomated erythrocyte mean corpuscular aoqpyi1647-55-68 09:25:00* Test Item Value Reference Range Interpretation Comments Mean Corpuscular Volume (test code = 787-2) 93.7 81-99 [facility] CenterAutomated erythrocyte mean corpuscular hemoglobin (mass per erythrocyte)2020-07-05 09:25:00* Test Item Value Reference Range Interpretation Comments Mean Corpuscular Hemoglobin (test code = 785-6) 29.8 28-32 [facility] CenterAutomated erythrocyte mean corpuscular hemoglobin concentration measurement (mass/volume)2020-07-05 09:25:00* Test Item Value Reference Range Interpretation Comments Mean Corpuscular Hemoglobin Concent (test code = 786-4) 31.9 31-35 [facility] CenterRDW CmzPz-Ezc9811-29-04 09:25:00* Test Item Value Reference Range Interpretation Comments Red Cell Distribution Width (test code = 79592-3) 13.1 11.7 -14.4 [facility] CenterAutomated blood platelet count (count/volume)2020-07-05 09:25:00* Test Item Value Reference Range Interpretation Comments Platelet Count (test code = 777-3) 283 140-360 [facility]ed blood segmented neutrophil count as percentage of total owddhljpur7515-86-60 09:25:00* Test Item Value Reference Range Interpretation Comments Neutrophils (%) (Auto) (test code = 13794-0) 77.4 38.7-80.0 [facility] CenterAutomated blood lymphocyte count as percentage ot total igujaktcgn1953-81-39 09:25:00* Test Item Value Reference Range Interpretation Comments Lymphocytes (%) (Auto) (test code = 736-9) 13.2 18.0-39.1 [facility] CenterAutunc health lenoired blood monocyte count as percentage of total gbcxraliws7783-23-96 09:25:00* Test Item Value Reference Range Interpretation Comments Monocytes (%) (Auto) (test code = 5905-5) 7.8 4.4-11.3 [facility] CenterAutomated blood eosinophil count as percentage of total vsfhtqqxcm1650-27-93 09:25:00* Test Item Value Reference Range Interpretation Comments Eosinophils (%) (Auto) (test code = 713-8) 0.4 0.0-6.0 [facility] CenterAutomated blood basophil count as percentage of total kmcjcslmxl3214-42-82 09:25:00* Test Item Value Reference Range Interpretation Comments Basophils (%) (Auto) (test code = 706-2) 0.8 0.0-1.0 [facility] CenterFluoroscopic procedure less than one hour dgybprfs3374-37-90 09:25:00* Test Item Value Reference Range Interpretation Comments IM GRANULOCYTES % (test code = IM GRANULOCYTES %) 0.4 0.0- 1.0 [facility] CenterAutomated blood neutrophil count 2020-07-05 09:25:00* Test Item Value Reference Range Interpretation Comments Neutrophils # (Auto) (test code = 751-8) 5.6 2.1-6.9 [facility] CenterBlood lymphocytes count (number/volume) 2020-07-05 09:25:00* Test Item Value Reference Range Interpretation Comments Lymphocytes # (Auto) (test code = 27188-8) 1.0 1.0-3.2 [facility] CenterBlst. [facility] monocytes automated count (number/volume)2020-07-05 09:25:00* Test Item Value Reference Range Interpretation Comments Monocytes # (Auto) (test code = 742-7) 0.6 0.2-0.8 [facility] CenterAutomated blood eosinophil count 2020-07-05 09:25:00* Test Item Value Reference Range Interpretation Comments Eosinophils # (Auto) (test code = 711-2) 0.0 0.0-0.4 [facility] CenterAutomated blood basophil count (count/volume)2020-07-05 09:25:00* Test Item Value Reference Range Interpretation Comments Basophils # (Auto) (test code = 704-7) 0.1 0.0-0.1 [facility] CenterFluoroscopic procedure less than one hour rejqvzuf4717-17-09 09:25:00* Test Item Value Reference Range Interpretation Comments Absolute Immature Granulocyte (auto (idania t code = Absolute Immature Granulocyte (auto) 0.03 0-0.1 [facility] CenterProthrombin time (PT) in platelet poor plasma by coagulation dtwpj4573-94-14 09:25:00* Test Item Value Reference Range Interpretation Comments Prothrombin Time (test code = 5902-2) 12.0 11.9-14.5 [facility] CenterINR in Platelet poor plasma by Coagulation ozviz9438-52-70 09:25:00* Test Item Value Reference Range Interpretation Comments Prothromb Time International Ratio (test code = 6301-6) 0.85 Oral Anticoagulant Therapy INR Values:1. Low Intensity Therapy 1.5 - 2.02 . Moderate Intensity Therapy 2.0 - 3.03. High Intensity Therapy(1) 2.5 - 3. 54. High Intensity Therapy(2) 3.0 - 4.05. Panic Value INR > 5.0 [facility] CenterActivated partial thromboplastin time (aPTT) in platelet poor plasma by coagulation yphpn4402-64-99 09:25:00* Test Item Value Reference Range Interpretation Comments Activated Partial Thromboplast Time (test code = 43303-1) 25.6 23.8-35.5 [facility] CenterUrine color ceclrvmmkxpjw5191-30-90 09:25:00* Test Item Value Reference Range Interpretation Comments Urine Color (test code = 5778-6) YELLOW YELLOW [facility] CenterUrine hyevshf3663-05-37 09:25:00* Test Item Value Reference Range Interpretation Comments Urine Clarity (test code = 04017-5) CLEAR CLEAR [facility] Hospitalpecific gravity of Urine by Test strip 2020-07-05 09:25:00* Test Item Value Reference Range Interpretation Comments Urine Specific [place] (test code = 5811-5) >=1.030 1.010-1.02 5 [facility] CenterUrine pH measurement by automated test xjejh8841-14-51 09:25:00* Test Item Value Reference Range Interpretation Comments Urine pH (test code = 47047-8) 5.5 5-7 [facility] CenterUrine leukocyte esterase detection by nkeqxrjj9118-51-82 09:25:00* Test Item Value Reference Range Interpretation Comments Urine Leukocyte Esterase (test code = 5799-2) SMALL NEGATIVE [facility] CenterUrine nitrite efuuypgfq6730-12-17 09:25:00* Test Item Value Reference Range Interpretation Comments Urine Nitrite (test code = 09789-6) NEGATIVE NEGATIVE [facility] CenterUrine protein measurement by test strip (mass/volume)2020-07-05 09:25:00* Test Item Value Reference Range Interpretation Comments Urine Protein (test code = 5804-0) 2+ NEGATIVE [facility] CenterUrine glucose jxkleifmh5806-67-74 09:25:00* Test Item Value Reference Range Interpretation Comments Urine Glucose (UA) (test code = 2349-9) NEGATIVE NEGATIVE [facility] CenterUrine ketones detection by automated test yzror8918-50-80 09:25:00* Test Item Value Reference Range Interpretation Comments Urine Ketones (test code = 13116-4) TRACE NEGATIVE [facility] CenterUrine urobilinogen measurement by test strip (mass/volume)2020-07-05 09:25:00* Test Item Value Reference Range Interpretation Comments Urine Urobilinogen (test code = 81222-7) 0.2 0.2-1 [facility] CenterUrine total bilirubin measurement (mass/volume)2020-07-05 09:25:00* Test Item Value Reference Range Interpretation Comments Urine Bilirubin (test code = 1978-6) NEGATIVE NEGATIVE [facility] CenterUrine erythrocytes tvfvrbvcw2720-10-46 09:25:00* Test Item Value Reference Range Interpretation Comments Urine Blood (test code = 87140-8) NEGATIVE NEGATIVE [facility] CenterAutomated urine sediment leukocyte count by microscopy (number/high power field)2020-07-05 09:25:00* Test Item Value Reference Range Interpretation Comments Urine WBC (test code = 5821-4) >50 0-5 [facility] CenterErythrocytes detection in urine sediment by light tbadifjbkc6339-74-67 09:25:00* Test Item Value Reference Range Interpretation Comments Urine RBC (test code = 00458-6) 6-10 0-5 [facility] CenterBacteria detection in urine sediment by light obxvxlzkyx3017-09-29 09:25:00* Test Item Value Reference Range Interpretation Comments Urine Bacteria (test code = 69957-6) MANY NONE [facility] CenterEpithelial cells detection in urine sediment by light skwvpuprkw6676-90-43 09:25:00* Test Item Value Reference Range Interpretation Comments Urine Epithelial Cells (test code = 26709-4) MODERATE NONE [facility] CenterHyaline casts detection in urine sediment by light lukzueqihr2201-12-92 09:25:00* Test Item Value Reference Range Interpretation Comments Urine Hyaline Casts (test code = 54807-2) 2-5 0-1 [facility] CenterMucus detection in urine sediment by light pdnbliqzps6394-38-95 09:25:00* Test Item Value Reference Range Interpretation Comments Urine Mucus (test code = 8247-9) FEW RARE [facility] Hospitalerum or plasma sodium measurement (moles/volume)2020-07-05 09:25:00* Test Item Value Reference Range Interpretation Comments Sodium Level (test code = 2951-2) 141 136-145 [facility] Hospitalerum or plasma potassium measurement (moles/volume)2020-07-05 09:25:00* Test Item Value Reference Range Interpretation Comments Potassium Level (test code = 2823-3) 3.7 3.5-5.1 [facility] Hospitalerum or plasma chloride measurement (moles/volume)2020-07-05 09:25:00* Test Item Value Reference Range Interpretation Comments Chloride Level (test code = 2075-0) 104 98-107 [facility] Hospitalerum or plasma carbon dioxide, total measurement (moles/volume)2020-07-05 09:25:00* Test Item Value Reference Range Interpretation Comments Carbon Dioxide Level (test code = 2028-9) 25 22-29 [facility] Hospitalerum or plasma anion pbj9693-52-75 09:25:00* Test Item Value Reference Range Interpretation Comments Anion Gap (test code = 48794-2) 15.7 8-16 [facility] Hospitalerum or plasma urea nitrogen measurement (mass/volume)2020-07-05 09:25:00* Test Item Value Reference Range Interpretation Comments Blood Urea Nitrogen (test code = 3094-0) 19 7-26 [facility] Hospitalerum or plasma creatinine measurement (mass/volume)2020-07-05 09:25:00* Test Item Value Reference Range Interpretation Comments Creatinine (test code = 2160-0) 1.18 0.57-1.11 [facility] Hospitalerum or plasma urea nitrogen/creatinine mass hbclt4147-31-31 09:25:00* Test Item Value Reference Range Interpretation Comments BUN/Creatinine Ratio (test code = 3097-3) 16 6-25 [facility] CenterEstimated glomerular filtration rate (GFR) vfrwniimyxoke8703-12-33 09:25:00* Test Item Value Reference Range Interpretation Comments Estimat Glomerular Filtration Rate (test code = 842793793) 44 >60 Ranges were taken from the National Kidney Disease Education Program and the [employer] literature.Reference ranges:60 or greater: Cfjqyw65-22 ( for 3 consecutive months): Chronic kidney disease 15 or less: Kidney failureD[facility] Regional Medical CenterGlucose onhypwymilh4306-93-51 09:25:00* Test Item Value Reference Range Interpretation Comments Glucose Level (test code = NHE4644) 116 74-118 [facility] Hospitalerum or plasma calcium measurement (mass/volume)2020-07-05 09:25:00* Test Item Value Reference Range Interpretation Comments Calcium Level (test code = 17987-6) 10.0 8.4-10.2 [facility] Hospitalerum or plasma magnesium measurement (mass/volume)2020-07-05 09:25:00* Test Item Value Reference Range Interpretation Comments Magnesium Level (test code = 27673-0) 1.8 1.3-2.1 [facility] Hospitalerum or plasma total bilirubin measurement (mass/volume)2020-07-05 09:25:00* Test Item Value Reference Range Interpretation Comments Total Bilirubin (test code = 1975-2) 0.3 0.2-1.2 [facility] CenterFluoroscopic procedure less than one hour vmekdunt4071-26-72 09:25:00* Test Item Value Reference Range Interpretation Comments Aspartate Amino Transf (AST/SGOT) (test code = Aspartate Amino Transf (AST/SGOT)) 25 5-34 [facility] Hospitalerum or plasma alanine aminotransferase measurement (enzymatic activity/volume)2020-07-05 09:25:00* Test Item Value Reference Range Interpretation Comments Alanine Aminotransferase (ALT/SGPT) (test code = 1742-6) 24 0-55 [facility] Hospitalerum or plasma protein measurement (mass/volume)2020-07-05 09:25:00* Test Item Value Reference Range Interpretation Comments Total Protein (test code = 2885-2) 6.9 6.5-8.1 [facility] Hospitalerum or plasma albumin measurement (mass/volume)2020-07-05 09:25:00* Test Item Value Reference Range Interpretation Comments Albumin (test code = 1751-7) 3.4 3.5-5.0 [facility] CenterPlasma globulin measurement (mass/volume) 2020-07-05 09:25:00* Test Item Value Reference Range Interpretation Comments Globulin (test code = 20125-6) 3.5 2.3-3.5 [facility] Hospitalerum or plasma albumin/globulin mass eshnz5142-64-49 09:25:00* Test Item Value Reference Range Interpretation Comments Albumin/Globulin Ratio (test code = 1759-0) 1.0 0.8-2.0 [facility] Hospitalerum or plasma alkaline phosphatase measurement (enzymatic activity/volume)2020-07-05 09:25:00* Test Item Value Reference Range Interpretation Comments Alkaline Phosphatase (test code = 6768-6) 86 40-150 [facility] Hospitalerum or plasma creatine kinase measurement (enzymatic activity/volume)2020-07-05 09:25:00* Test Item Value Reference Range Interpretation Comments Creatine Kinase (test code = 2157-6) 48 29-168 [facility] Hospitalerum or plasma creatine kinase MB measurement (mass/volume)2020-07-05 09:25:00* Test Item Value Reference Range Interpretation Comments Creatine Kinase MB (test code = 17875-2) 1.30 0-5.0 [facility] CenterTroponin I measurement by highly sensitive enzyme ebfnavpyczv4971-59-03 09:25:00* Test Item Value Reference Range Interpretation Comments Troponin I (test code = 49319-2) 0.016 0-0.300 [facility] CenterProthrombin time (PT) in platelet poor plasma by coagulation odgdq9382-69-05 09:25:00* Test Item Value Reference Range Interpretation Comments Prothrombin Time (test code = 5902-2) 12.0 11.9-14.5 [facility] CenterINR in Platelet poor plasma by Coagulation twesr2317-61-30 09:25:00* Test Item Value Reference Range Interpretation Comments Prothromb Time International Ratio (test code = 6301-6) 0.85 Oral Anticoagulant Therapy INR Values:1. Low Intensity Therapy 1.5 - 2.02 . Moderate Intensity Therapy 2.0 - 3.03. High Intensity Therapy(1) 2.5 - 3. 54. High Intensity Therapy(2) 3.0 - 4.05. Panic Value INR > 5.0 [facility] CenterActivated partial thromboplastin time (aPTT) in platelet poor plasma by coagulation utkrj6924-10-64 09:25:00* Test Item Value Reference Range Interpretation Comments Activated Partial Thromboplast Time (test code = 28465-1) 25.6 23.8-35.5 [facility] CenterHyaline casts detection in urine sediment by light pjsmdafvzg6399-56-19 09:25:00* Test Item Value Reference Range Interpretation Comments Urine Hyaline Casts (test code = 88742-5) 2-5 0-1 [facility] CenterMucus detection in urine sediment by light kibphvhudw6395-12-66 09:25:00* Test Item Value Reference Range Interpretation Comments Urine Mucus (test code = 8247-9) FEW RARE [facility] Hospitalerum or plasma magnesium measurement (mass/volume)2020-07-05 09:25:00* Test Item Value Reference Range Interpretation Comments Magnesium Level (test code = 37451-4) 1.8 1.3-2.1 [facility] CenterBacterial urine mlseklq5373-47-29 09:25:00* Test Item Value Reference Range Interpretation Comments Urine Culture (test code = 630-4) ESCHERICHIA COLI [facility] CenterProthrombin time (PT) in platelet poor plasma by coagulation pvsqw3035-99-32 09:25:00* Test Item Value Reference Range Interpretation Comments Prothrombin Time (test code = 5902-2) 12.0 11.9-14.5 [facility] CenterINR in Platelet poor plasma by Coagulation gawuo6631-40-27 09:25:00* Test Item Value Reference Range Interpretation Comments Prothromb Time International Ratio (test code = 6301-6) 0.85 Oral Anticoagulant Therapy INR Values:1. Low Intensity Therapy 1.5 - 2.02 . Moderate Intensity Therapy 2.0 - 3.03. High Intensity Therapy(1) 2.5 - 3. 54. High Intensity Therapy(2) 3.0 - 4.05. Panic Value INR > 5.0 [facility] CenterActivated partial thromboplastin time (aPTT) in platelet poor plasma by coagulation mmxmm6101-70-40 09:25:00* Test Item Value Reference Range Interpretation Comments Activated Partial Thromboplast Time (test code = 87601-5) 25.6 23.8-35.5 [facility] CenterHyaline casts detection in urine sediment by light aobgsbzekk5344-11-93 09:25:00* Test Item Value Reference Range Interpretation Comments Urine Hyaline Casts (test code = 51031-3) 2-5 0-1 [facility] CenterMucus detection in urine sediment by light rgkajjysga2005-27-39 09:25:00* Test Item Value Reference Range Interpretation Comments Urine Mucus (test code = 8247-9) FEW RARE [facility] CenterBacterial urine fevrphl7614-50-52 09:25:00* Test Item Value Reference Range Interpretation Comments Urine Culture (test code = 630-4) ESCHERICHIA COLI [facility] CenterFluoroscopic procedure less than one hour kigodhae6972-96-38 17:20:00* Test Item Value Reference Range Interpretation [...] Testing methodology is real-time RT-PCR utilizing the [facility] SARS-CoV-2 ki t distributed by [employer].Test results must be correlated with clinical presentation [...] complexity test s.Testing performed by Clinical Pathology [address] [place] [address] [phone] Director: Elkin Camara M.D.SUNIL # [id number] 3CALLED TO JOHN IN OR [facility] 04/20/20 [facility] (PORTABLE)2020-04-17 11:12:00 [facility] [address] [place] [address] Patient Name: VICKI ESPARZA MR #: [id number] : 1940 Age/Sex: 79/F Req #: [id number] Adm Physician: ROB VEGA MD Ordered by: NICOLE THOMPSON MD Report #: [id number] Location: [facility] Room/Bed: [place] [address] Procedure: [id number] DX/CHEST S JAYCE (PORTABLE) Exam Date: 04/17/20 [...] 11:14 AM Dictated By: FLO CAVAZOS MD 13 Transcribed By: TROY on 04/17/201113 COPY TO: NICOLE THOMPSON MD MRI BRAIN QH9987-97-83 15:35:[address] [place] [address] Patient Name: VICKI ESPARZA MR #: [id number] : 1940 Age/Sex: 79/F Req #: [id number] [facility] Physician: ROB VEGA MD Ordered by: ROB VEGA MD Report #: [id number] Location: [facility]/Bed: [facility] 175-1 Procedure: [id number] MRI/MRI BRA IN WO Exam Date: Exam [...] 1544 COPY TO: ROB VEGA MD CTA ZWQC4395-68-56 12:37:00 [place] [address] Patient Name: VICKI ESPARZA MR #: [id number] : 1940 Age/Sex: 79/F Req #: [id number] Adm Physician: ROB VEGA MD Ordered by: ROB VEGA MD Report #: [id number] Location: [facility]/Bed: [facility] 175-1 Procedure: [id number] CT/CTA NECK Exam Date: 04/14/20 Exam Time: 1200 REPORT STATUS: Signed Examination: Cervical CT Angiogram with Contrast Clinical indication:Carotid stenosis as seen on Dopple r examination. Comparison studies:None Technique: Axial images were obtained from the thoracic inlet. Coronal and sagittal images reconstructed from the axial data. Intravenous contrast: 100 cc of Isovue-370. Nuritas nerated maximum intensity projection and 3D images [...] of 1.4 cm. Vertebral arteries: P atent. [place]: The left posterior commuting artery [...] Interpretation Comments Bedside Glucose (test code = 48441-2) 97 70-120 Meter ID: [id number] Regional Medical CenterCapillary blood glucose measurement by glucometer (mass/volume)2020-04-13 07:35:00* Test Item Value Reference Range Interpretation Comments Bedside Glucose (test code = 12524-3) 97 70-120 Meter ID: [id number] Regional Medical CenterCapillary blood glucose measurement by glucometer (mass/volume)2020-04-13 07:35:00* Test Item Value Reference Range Interpretation Comments Bedside Glucose (test code = 98929-4) 97 70-120 Meter ID: [id number] [facility] Hospitalerum or plasma triglyceride measurement (mass/volume)2020-04-13 05:00:00* Test Item Value Reference Range Interpretation Comments Triglycerides Level (test code = 2571-8) 154 0-149 [facility] Hospitalerum or plasma cholesterol measurement (mass/volume)2020-04-13 05:00:00* Test Item Value Reference Range Interpretation Comments Cholesterol Level (test code = 2093-3) 184 0-199 Less than 200 mg/dL Low Zzry413 - 239 mg/dL Borderline Lbva119 m g/dl and greater High Risk [facility] Hospitalerum or plasma cholesterol in LDL measurement (mass/volume) 2020-04-13 05:00:00* Test Item Value Reference Range Interpretation Comments LDL Cholesterol (test code = 2089-1) 98 60-130 [facility] Hospitalerum or plasma cholesterol in HDL measurement (mass/volume)2020-04-13 05:00:00* Test Item Value Reference Range Interpretation Comments HDL Cholesterol (test code = 2085-9) 55 40-60 [facility] Hospitalerum or plasma total cholesterol/cholesterol in HDL mass wjkju8137-75-83 05:00:00* Test Item Value Reference Range Interpretation Comments Cholesterol/HDL Ratio (test code = 9830-1) 3.3 3.0-3.6 [facility] Hospitalerum or plasma triglyceride measurement (mass/volume)2020-04-13 05:00:00* Test Item Value Reference Range Interpretation Comments Triglycerides Level (test code = 2571-8) 154 0-149 [facility] Hospitalerum or plasma cholesterol measurement (mass/volume)2020-04-13 05:00:00* Test Item Value Reference Range Interpretation Comments Cholesterol Level (test code = 2093-3) 184 0-199 Less than 200 mg/dL Low Huak297 - 239 mg/dL Borderline Trcw868 m g/dl and greater High Risk [facility] Hospitalerum or plasma cholesterol in LDL measurement (mass/volume) 2020-04-13 05:00:00* Test Item Value Reference Range Interpretation Comments LDL Cholesterol (test code = 2089-1) 98 60-130 [facility] Hospitalerum or plasma cholesterol in HDL measurement (mass/volume)2020-04-13 05:00:00* Test Item Value Reference Range Interpretation Comments HDL Cholesterol (test code = 2085-9) 55 40-60 [facility] Hospitalerum or plasma total cholesterol/cholesterol in HDL mass qgosh8134-91-80 05:00:00* Test Item Value Reference Range Interpretation Comments Cholesterol/HDL Ratio (test code = 9830-1) 3.3 3.0-3.6 [facility] Hospitalerum or plasma triglyceride measurement (mass/volume)2020-04-13 05:00:00* Test Item Value Reference Range Interpretation Comments Triglycerides Level (test code = 2571-8) 154 0-149 [facility] Hospitalerum or plasma cholesterol measurement (mass/volume)2020-04-13 05:00:00* Test Item Value Reference Range Interpretation Comments Cholesterol Level (test code = 2093-3) 184 0-199 Less than 200 mg/dL Low Jzza450 - 239 mg/dL Borderline Okmc126 m g/dl and greater High Risk [facility] Hospitalerum or plasma cholesterol in LDL measurement (mass/volume) 2020-04-13 05:00:00* Test Item Value Reference Range Interpretation Comments LDL Cholesterol (test code = 2089-1) 98 60-130 [facility] Hospitalerum or plasma cholesterol in HDL measurement (mass/volume)2020-04-13 05:00:00* Test Item Value Reference Range Interpretation Comments HDL Cholesterol (test code = 2085-9) 55 40-60 [facility] Hospitalerum or plasma total cholesterol/cholesterol in HDL mass lgchj0830-53-17 05:00:00* Test Item Value Reference Range Interpretation Comments Cholesterol/HDL Ratio (test code = 9830-1) 3.3 3.0-3.6 [facility] CenterCT CERVICAL SPINE TF3405-17-80 16:10:00 [facility] [address] [place] [address] Patient Name: VICKI ESPARZA MR #: [id number] : 1940 Age/Sex: 79/F Req #: [id number] Adm Physician: Ordered by: JIM CORDERO MD Report #: [id number] Location: ER Ro om/Bed: Procedure: [id number] CT/CT CERV ICAL SPINE WO Exam Date: [...] COPY TO: JIM CORDERO MD CT BRAIN CK4500-82-57 15:59:00 [facility] [address] [address] Patient Name: VICKI ESPARZA MR #: [id number] : 1940 Age/Sex: 79/F Req #: [id number] Adm Physician: Ordered by: JIM CORDERO MD Report #: [id number] Location: ER Room/Bed: Procedure: [id number] CT/CT MIHIRI N WO Exam Date: 04/12/20 Exam Time: 1526 [...] as reasonably achievable. Comparison: Head CT da deyis March 26, 2018. Findings: Scalp: No abnormalities. [...] HIP LEFT 2-3 VW (+/- PELVIS)2020-04-12 15:34:[address] [place] [address] Patient Name: VICKI ESPARZA MR #: [id number] : 1940 Age/Sex: 79/F Req #: [id number] Adm Physician: Ordered by: JIM CORDERO MD Report #: [id number] Location: ER Ro om/Bed: Procedure: [id number] DX/HIP LEF T 2-3 VW (+/- PELVIS) [...] CORDERO MD CHEST SINGLE (PORTABLE) 2020-04-12 15:31:00 [address] [place] [address] Patient Name: VICKI ESPARZA MR #: [id number] : 1940 Age/Sex: 79/F Req #: [id number] Adm Physician: ROB VEGA MD Ordered by: JIM CORDERO MD Report #: [id number] Location: ICU Room/Bed: ICU [facility] Procedure: [id number] DX/CHEST S JAYCE (PORTABLE) Exam Date: 04/12/20 [...] 04/12/201532 COPY TO: JIM CORDERO MD BNP Fez-nTbw9834-04-12 14:10:00* Test Item Value Reference Range Interpretation Comments B-Type Natriuretic Peptide (test code = 77823-0) 52.8 0-100 [facility] CenterCHES SINGLE (PORTABLE)2020-03-20 08:41:00 [place] [address] Patient Name: VICKI ESPARZA MR #: [id number] : 1940 Age/Sex: 79/F Req #: [id number] Adm Physician: ROB VEGA MD Ordered by: ROB VEGA MD Report #: [id number] Location: [facility] Room/Bed: [place] [address] Procedure: [id number] DX/CHEST SI NGLE (PORTABLE) Exam Date: 03/20/20 [...] TO: BENNIE VEGA MD CTA LOWER EXTREMITIES IIYHH3990-32-54 15:41:00 [place] [address] Patient Name: VICKI ESPARZA MR #: [id number] : 1940 Age/Sex: 79/F Req #: [id number] Adm Physician: ROB VEGA MD Ordered by: ROB VEGA MD Report #: [id number] Location: MED/SURG Loly m/Bed: 107-1 Procedure: [id number] CT/CTA LOWE R EXTREMITIES BILAT Exam Date: [...] 3:56 PM Dictated By: MADALYN DEWEY MD [id number] Transcribed By: TROY on 03/19/20 0773 COPY TO: ROB VEGA MD FOOT LEFT BIDZWKEN8596-55-15 10:12:00 [place] [address] Patient Name: VICKI ESPARZA MR #: [id number] : 1940 Age/Sex: 79/F Req #: [id number] Adm Physician: ROB VEGA MD Ordered by: ROB VEGA MD Report #: [id number] Location: MED/SURG Loly m/Bed: 107-1 Procedure: [id number] DX/FOOT LEF T COMPLETE Exam Date: 03/18/20 [...] Acid (test code = 3084-1) 6.2 2.6-8.0 [facility] Hospitalerum or plasma uric acid measurement (mass/volume)2020-03-18 03:44:00* Test Item Value Reference Range Interpretation Comments Uric Acid (test code = 3084-1) 6.2 2.6-8.0 [facility] Hospitalerum or plasma uric acid measurement (mass/volume)2020-03-18 03:44:00* Test Item Value Reference Range Interpretation Comments Uric Acid (test code = 3084-1) 6.2 2.6-8.0 [facility] CenterCHEST SINGLE (PORTABLE)2020-03-17 18:07:00 [place] [address] Patient Name: VICKI ESPARZA MR #: [id number] : 1940 Age/Sex: 79/F Req #: [id number] Adm Physician: Ordered by: IMANI HODGE DO Report #: [id number] Location: ER Room/Bed: Procedure: [id number] DX/CHES T SINGLE (PORTABLE) Exam Date: 03/17/20 [...] DO Fluoroscopic procedure less than one hour splhuqda9275-45-57 16:30:00* Test Item Value Reference Range Interpretation Comments Lactic Acid Level (test code = Lactic Acid Level) 1.1 0.5- 2.0 [facility] CenterBlood fqwonyu5070-30-94 15:20:00* Test Item Value Reference Range Interpretation Comments Blood Culture (test code = 09995940) NO GROWTH AFTER 5 DAYS, FINAL REPORT [facility] CenterTriglycerides Ytght3161-30-36 06:32:00* Test Item Value Reference Range Interpretation Comments Triglycerides Level (test code = 2571-8) 111 0-149 [facility] CenterCholesterol Wewvs6558-10-86 06:32:00* Test Item Value Reference Range Interpretation Comments Cholesterol Level (test code = 2093-3) 184 0-199 Less than 200 mg/dL Low Dtqq198 - 239 mg/dL Borderline Koud034 m g/dl and greater High Risk [facility] CenterLDL Tejuxefesux1838-32-04 06:32:00* Test Item Value Reference Range Interpretation Comments LDL Cholesterol (test code = 2089-1) 106 60-130 [facility] CenterHDL Cfhozqpsifx6812-22-62 06:32:00* Test Item Value Reference Range Interpretation Comments HDL Cholesterol (test code = 2085-9) 56 40-60 [facility] CenterCholesterol/HDL Jliwi3248-81-84 06:32:00 * Test Item Value Reference Range Interpretation Comments Cholesterol/HDL Ratio (test code = 9830-1) 3.3 3.0-3.6 [facility] CenterCreatine Kinase YZ6704-71-90 04:01:00* Test Item Value Reference Range Interpretation Comments Creatine Kinase MB (test code = 63689-8) 1.30 0-5.0 [facility] CenterTroponin U6810-13-51 04:01:00* Test Item Value Reference Range Interpretation Comments Troponin I (test code = HYD6839) < 0.001 0-0.300 [facility] CenterCreatine Wxwvgy5338-91-96 03:52:00* Test Item Value Reference Range Interpretation Comments Creatine Kinase (test code = 2157-6) 26 29-168 L [facility] CenterB-Type Natriuretic Lwftdbu3357-47-86 11:19:00* Test Item Value Reference Range Interpretation Comments B-Type Natriuretic Peptide (test code = 59857-4) 52.5 0-100 [facility] CenterD-Dimer Quantitative (PE/DVT)2019-11-17 11:03:00* Test Item Value Reference Range Interpretation Comments D-Dimer Quantitative (PE/DVT) (test code = 91801-9) 0.72 0. 00-0.45 H As with all in vitro diagnostic tests, the test results should be interpreted by the physician in conjunction with clinical findings and other test results.Test results are reported in NEW D-dimer units(ug/mLFEU).[facility] Hospitalodium Wkowd5904-43-98 11:01:00* Test Item Value Reference Range Interpretation Comments Sodium Level (test code = 2951-2) 142 136-145 [facility] CenterPotassium Wbeis2127-90-62 11:01:00* Test Item Value Reference Range Interpretation Comments Potassium Level (test code = 2823-3) 4.2 3.5-5.1 [facility] CenterChloride Lheiw7774-97-84 11:01:00* Test Item Value Reference Range Interpretation Comments Chloride Level (test code = 2075-0) 104 98-107 [facility] CenterCarbon Dioxide Mhtoi1367-36-14 11:01:00* Test Item Value Reference Range Interpretation Comments Carbon Dioxide Level (test code = 2028-9) 27 22-29 [facility] CenterAnion Xyq7534-92-01 11:01:00* Test Item Value Reference Range Interpretation Comments Anion Gap (test code = 61859-3) 15.2 8-16 [facility] CenterBlood Urea Woxgtznr3985-19-18 11:01:00* Test Item Value Reference Range Interpretation Comments Blood Urea Nitrogen (test code = 3094-0) 24 7-26 [facility] CenterCreatinine2020-02-16 11:01:00* Test Item Value Reference Range Interpretation Comments Creatinine (test code = 2160-0) 1.26 0.57-1.11 H [facility] CenterBUN/Creatinine Oclum3081-92-46 11:01:00* Test Item Value Reference Range Interpretation Comments BUN/Creatinine Ratio (test code = 3097-3) 19 6-25 [facility] CenterEstimat Glomerular Filtration Rate 2019-11-17 11:01:00* Test Item Value Reference Range Interpretation Comments Estimat Glomerular Filtration Rate (test code = 303651444) 41 >60 L Ranges were taken from the National Kidney Disease Education Program and the [employer] [facility] literature.Reference ranges:60 or greater: Jbrgao65-41 ( for 3 consecutive months): Chronic kidney disease 15 or less: Kidney failureDallas Regional Medical CenterGlucose Ksksd1378-95-79 11:01:00* Test Item Value Reference Range Interpretation Comments Glucose Level (test code = DNX3028) 83 74-118 [facility] CenterCalcium Cihoq0794-92-42 11:01:00* Test Item Value Reference Range Interpretation Comments Calcium Level (test code = 67183-5) 10.3 8.4-10.2 H [facility] CenterMagnesium Rxzyk3528-36-64 11:01:00* Test Item Value Reference Range Interpretation Comments Magnesium Level (test code = 46006-1) 2.1 1.3-2.1 [facility] CenterTotal Myxtdctfh4856-56-70 11:01:00* Test Item Value Reference Range Interpretation Comments Total Bilirubin (test code = 1975-2) 0.6 0.2-1.2 [facility] Medical CenterAspartate Amino Transf (AST/SGOT) 2019-11-17 11:01:00* Test Item Value Reference Range Interpretation Comments Aspartate Amino Transf (AST/SGOT) (test code = Aspartate Amino Transf (AST/SGOT)) 35 5-34 H [facility] Medical CenterAlanine Aminotransferase (ALT/SGPT) 2019-11-17 11:01:00* Test Item Value Reference Range Interpretation Comments Alanine Aminotransferase (ALT/SGPT) (test code = 1742-6) 23 0-55 [facility] CenterTotal Mpqzttg8488-12-88 11:01:00* Test Item Value Reference Range Interpretation Comments Total Protein (test code = 2885-2) 6.3 6.5-8.1 L [facility] CenterAlbumin2020-02-16 11:01:00* Test Item Value Reference Range Interpretation Comments Albumin (test code = 1751-7) 3.4 3.5-5.0 L [facility] CenterGlobulin2020-02-16 11:01:00* Test Item Value Reference Range Interpretation Comments Globulin (test code = 04970-4) 2.9 2.3-3.5 [facility] CenterAlbumin/Globulin Dfvrn0433-99-25 11:01:00 * Test Item Value Reference Range Interpretation Comments Albumin/Globulin Ratio (test code = 1759-0) 1.2 0.8-2.0 [facility] CenterAlkaline Jujykhrgkvi6364-11-20 11:01:00* Test Item Value Reference Range Interpretation Comments Alkaline Phosphatase (test code = 6768-6) 74 40-150 [facility] CenterWhite Blood Phsga1793-12-24 10:52:00* Test Item Value Reference Range Interpretation Comments White Blood Count (test code = 6690-2) 13.30 4.8-10.8 H [facility] CenterRed Blood Ljvof2288-12-47 10:52:00* Test Item Value Reference Range Interpretation Comments Red Blood Count (test code = 789-8) 4.76 3.6-5.1 [facility] CenterHemoglobin2020-02-16 10:52:00* Test Item Value Reference Range Interpretation Comments Hemoglobin (test code = 23479-1) 14.3 12.0-16.0 [facility] CenterHematocrit2020-02-16 10:52:00* Test Item Value Reference Range Interpretation Comments Hematocrit (test code = 4544-3) 44.1 34.2-44.1 [facility] CenterMean Corpuscular Wglnlm7489-65-13 10:52:00* Test Item Value Reference Range Interpretation Comments Mean Corpuscular Volume (test code = 787-2) 92.6 81-99 [facility] CenterMean Corpuscular Mpinheojry4989-39-83 10:52:00* Test Item Value Reference Range Interpretation Comments Mean Corpuscular Hemoglobin (test code = 785-6) 30.0 28-32 [facility] CenterMean Corpuscular Hemoglobin Concent 2019-11-17 10:52:00* Test Item Value Reference Range Interpretation Comments Mean Corpuscular Hemoglobin Concent (test code = 786-4) 32.4 31-35 [facility] CenterRed Cell Distribution Ijfwv8803-33-53 10:52:00* Test Item Value Reference Range Interpretation Comments Red Cell Distribution Width (test code = 23101-4) 13.9 11.7 -14.4 [facility] CenterPlatelet Luaek0163-02-50 10:52:00* Test Item Value Reference Range Interpretation Comments Platelet Count (test code = 777-3) 354 140-360 [facility] CenterNeutrophils (%) (Auto)2019-11-17 10:52:00 * Test Item Value Reference Range Interpretation Comments Neutrophils (%) (Auto) (test code = 22248-7) 72.5 38.7-80.0 [facility] CenterLymphocytes (%) (Auto)2019-11-17 10:52:00 * Test Item Value Reference Range Interpretation Comments Lymphocytes (%) (Auto) (test code = 736-9) 18.6 18.0-39.1 [facility] CenterMonocytes (%) (Auto)2019-11-17 10:52:00* Test Item Value Reference Range Interpretation Comments Monocytes (%) (Auto) (test code = 5905-5) 7.9 4.4-11.3 [facility] CenterEosinophils (%) (Auto)2019-11-17 10:52:00 * Test Item Value Reference Range Interpretation Comments Eosinophils (%) (Auto) (test code = 713-8) 0.1 0.0-6.0 [facility] CenterBasophils (%) (Auto)2019-11-17 10:52:00* Test Item Value Reference Range Interpretation Comments Basophils (%) (Auto) (test code = 706-2) 0.3 0.0-1.0 [facility] CenterIM GRANULOCYTES %2019-11-17 10:52:00* Test Item Value Reference Range Interpretation Comments IM GRANULOCYTES % (test code = IM GRANULOCYTES %) 0.6 0.0- 1.0 [facility] CenterNeutrophils # (Auto)2019-11-17 10:52:00* Test Item Value Reference Range Interpretation Comments Neutrophils # (Auto) (test code = 751-8) 9.6 2.1-6.9 H [facility] CenterLymphocytes # (Auto)2019-11-17 10:52:00* Test Item Value Reference Range Interpretation Comments Lymphocytes # (Auto) (test code = 64916-8) 2.5 1.0-3.2 [facility] CenterMonocytes # (Auto)2019-11-17 10:52:00* Test Item Value Reference Range Interpretation Comments Monocytes # (Auto) (test code = 742-7) 1.1 0.2-0.8 H [facility] CenterEosinophils # (Auto)2019-11-17 10:52:00* Test Item Value Reference Range Interpretation Comments Eosinophils # (Auto) (test code = 711-2) 0.0 0.0-0.4 [facility] CenterBasophils # (Auto)2019-11-17 10:52:00* Test Item Value Reference Range Interpretation Comments Basophils # (Auto) (test code = 704-7) 0.0 0.0-0.1 [facility] CenterAbsolute Immature Granulocyte (auto 2019-11-17 10:52:00* Test Item Value Reference Range Interpretation Comments Absolute Immature Granulocyte (auto (idania t code = Absolute Immature Granulocyte (auto) 0.08 0-0.1 [facility] CenterCHEST 2 GNIUM7127-28-43 09:56:00 [place] [address] Patient Name: VICKI ESPARZA MR #: [id number] : [birth year] Age/Sex: 79/F Req #: [id number] Adm Physician: Ordered by: RULA GRANDA MD Report #: [id number] Location: ER Room/Bed: Procedure: [id number] DX/CHEST 2 VIEWS Exam Date: 11/17/19 Exam [...] Comments D-Dimer Quantitative (PE/DVT) (test code = 12418-7) 0.72 0. 00-0.45 As with all in vitro diagnostic tests, the test results should be interpreted by the physician in conjunction with clinical findings and other test results.Test results are reported in NEW D-dimer units(ug/mLFEU).[facility] CenterFibrin D-dimer DDU measurement in platelet poor plasma (mass/volume)2019-11-17 09:28:00* Test Item Value Reference Range Interpretation Comments D-Dimer Quantitative (PE/DVT) (test code = 83418-3) 0.72 0. 00-0.45 As with all in vitro diagnostic tests, the test results should be interpreted by the physician in conjunction with clinical findings and other test results.Test results are reported in NEW D-dimer units(ug/mLFEU).[facility] CenterFibrin D-dimer DDU measurement in platelet poor plasma (mass/volume)2019-11-17 09:28:00* Test Item Value Reference Range Interpretation Comments D-Dimer Quantitative (PE/DVT) (test code = 96396-6) 0.72 0. 00-0.45 As with all in vitro diagnostic tests, the test results should be interpreted by the physician in conjunction with clinical findings and other test results.Test results are reported in NEW D-dimer units(ug/mLFEU).[facility] CDK2118-40-52 15:19:00* Test Item Value Reference Range Interpretation Comments Urine WBC (test code = 5821-4) 6-10 0-5 H [facility] CenterUrine AMF9796-80-85 15:19:00* Test Item Value Reference Range Interpretation Comments Urine RBC (test code = 63548-1) 11-20 0-5 H [facility] CenterUrine Lzdgooix3968-28-33 15:19:00* Test Item Value Reference Range Interpretation Comments Urine Bacteria (test code = 48299-0) MODERATE NONE H [facility] CenterUrine Epithelial Hplfn9217-01-85 15:19:00 * Test Item Value Reference Range Interpretation Comments Urine Epithelial Cells (test code = 28499-4) MODERATE NONE [facility] CenterUrine PFX4657-86-63 15:19:00* Test Item Value Reference Range Interpretation Comments Urine WBC (test code = 5821-4) 6-10 0-5 H [facility] TDN9269-55-38 15:19:00* Test Item Value Reference Range Interpretation Comments Urine RBC (test code = 89932-1) 11-20 0-5 H [facility] Rmgatvad7451-89-64 15:19:00* Test Item Value Reference Range Interpretation Comments Urine Bacteria (test code = 45986-4) MODERATE NONE H [facility] Epithelial Ujsuo8675-74-82 15:19:00 * Test Item Value Reference Range Interpretation Comments Urine Epithelial Cells (test code = 62863-4) MODERATE NONE [facility] HF3280-[facility]-08 14:30:00 [facility] [address] [address] Patient Name: VICKI ESPARZA MR #: [id number] : [birth year] Age/Sex: 78/F Req #: [id number] Adm Physician: Ordered by: STEF SCALES NURSE EXAMINER Report #: [id number] Location: ER Room/Bed: Procedure: CT/CT ABDOMEN/PELVIS WO [...] on 08/17/2019 2:39 PM Dictated By: NANNETTE HAM MD, MD [facility] Signed By: NANNETTE HAM MD, MD on 08/17/19 143 Transcribed By: TROY on 08/17/191438 COPY TO: STEF SCALES NP Sodium Level 2019-08-17 14:27:00* Test Item Value Reference Range Interpretation Comments Sodium Level (test code = 2951-2) 140 136-145 [facility] CenterPotassium Oydlg3201-51-06 14:27:00* Test Item Value Reference Range Interpretation Comments Potassium Level (test code = 2823-3) 3.7 3.5-5.1 [facility] CenterChloride Mwxxo7490-43-28 14:27:00* Test Item Value Reference Range Interpretation Comments Chloride Level (test code = 2075-0) 103 98-107 [facility] CenterCarbon Dioxide Aezqy8162-89-58 14:27:00* Test Item Value Reference Range Interpretation Comments Carbon Dioxide Level (test code = 8-9) 24 22-29 [facility] CenterAnion Idj3945-60-92 14:27:00* Test Item Value Reference Range Interpretation Comments Anion Gap (test code = 74284-5) 16.7 8-16 H [facility] CenterBlood Urea Zsmedmpk9560-94-75 14:27:00* Test Item Value Reference Range Interpretation Comments Blood Urea Nitrogen (test code = 3094-0) 14 7-26 [facility] CenterCreatinine2019-11-16 14:27:00* Test Item Value Reference Range Interpretation Comments Creatinine (test code = 2160-0) 1.39 0.57-1.11 H [facility] CenterBUN/Creatinine Bbwmu3808-83-83 14:27:00* Test Item Value Reference Range Interpretation Comments BUN/Creatinine Ratio (test code = 3097-3) 10 6-25 [facility] CenterEstimat Glomerular Filtration Rate 2019-08-17 14:27:00* Test Item Value Reference Range Interpretation Comments Estimat Glomerular Filtration Rate (test code = 532803879) 37 >60 L Ranges were taken from the National Kidney Disease Education Program and the [employer] [facility] [facility] [employer] literature.Reference ranges:60 or greater: Jpzjvn39-42 ( for 3 consecutive months): Chronic kidney disease 15 or less: Kidney failureD[facility] Regional Medical CenterGlucose Bpjtu2341-26-00 14:27:00* Test Item Value Reference Range Interpretation Comments Glucose Level (test code = MJG9170) 107 74-118 [facility] CenterCalcium Jwdqe3131-90-20 14:27:00* Test Item Value Reference Range Interpretation Comments Calcium Level (test code = 88690-8) 10.9 8.4-10.2 H [facility] [facility] Nzadfkesx4822-22-58 14:27:00* Test Item Value Reference Range Interpretation Comments Total Bilirubin (test code = 1975-2) 0.4 0.2-1.2 [facility] CenterAspartate Amino Transf (AST/SGOT) 2019-08-17 14:27:00* Test Item Value Reference Range Interpretation Comments Aspartate Amino Transf (AST/SGOT) (test code = Aspartate Amino Transf (AST/SGOT)) 27 5-34 [facility] CenterAlanine Aminotransferase (ALT/SGPT) 2019-08-17 14:27:00* Test Item Value Reference Range Interpretation Comments Alanine Aminotransferase (ALT/SGPT) (test code = 1742-6) 14 0-55 [facility] CenterTotal Liifwoz6304-05-84 14:27:00* Test Item Value Reference Range Interpretation Comments Total Protein (test code = 2885-2) 6.6 6.5-8.1 [facility] CenterAlbumin2019-11-16 14:27:00* Test Item Value Reference Range Interpretation Comments Albumin (test code = 1751-7) 3.5 3.5-5.0 [facility] CenterGlobulin2019-11-16 14:27:00* Test Item Value Reference Range Interpretation Comments Globulin (test code = 32774-1) 3.1 2.3-3.5 [facility] CenterAlbumin/Globulin Wxihf6390-54-19 14:27:00 * Test Item Value Reference Range Interpretation Comments Albumin/Globulin Ratio (test code = 1759-0) 1.1 0.8-2.0 [facility] CenterAlkaline Laofvlxofxe3870-46-62 14:27:00* Test Item Value Reference Range Interpretation Comments Alkaline Phosphatase (test code = 6768-6) 80 40-150 [facility] CenterWhite Blood Ngjsv9216-30-08 13:56:00* Test Item Value Reference Range Interpretation Comments White Blood Count (test code = 6690-2) 11.08 4.8-10.8 H [facility] CenterRed Blood Lrcee1882-43-50 13:56:00* Test Item Value Reference Range Interpretation Comments Red Blood Count (test code = 789-8) 4.68 3.6-5.1 [facility] CenterHemoglobin2019-11-16 13:56:00* Test Item Value Reference Range Interpretation Comments Hemoglobin (test code = 25824-7) 13.7 12.0-16.0 [facility] CenterHematocrit2019-11-16 13:56:00* Test Item Value Reference Range Interpretation Comments Hematocrit (test code = 4544-3) 42.5 34.2-44.1 [facility] CenterMean Corpuscular Htifhp8034-01-60 13:56:00* Test Item Value Reference Range Interpretation Comments Mean Corpuscular Volume (test code = 787-2) 90.8 81-99 [facility] CenterMean Corpuscular Bnyzkrwkmm8517-32-64 13:56:00* Test Item Value Reference Range Interpretation Comments Mean Corpuscular Hemoglobin (test code = 785-6) 29.3 28-32 [facility] CenterMean Corpuscular Hemoglobin Concent 2019-08-17 13:56:00* Test Item Value Reference Range Interpretation Comments Mean Corpuscular Hemoglobin Concent (test code = 786-4) 32.2 31-35 [facility] CenterRed Cell Distribution Qtmer6965-27-20 13:56:00* Test Item Value Reference Range Interpretation Comments Red Cell Distribution Width (test code = 22204-3) 12.6 11.7 -14.4 [facility] CenterPlatelet Wqxuq6040-17-11 13:56:00* Test Item Value Reference Range Interpretation Comments Platelet Count (test code = 777-3) 343 140-360 [facility] CenterNeutrophils (%) (Auto)2019-08-17 13:56:00 * Test Item Value Reference Range Interpretation Comments Neutrophils (%) (Auto) (test code = 83381-4) 73.7 38.7-80.0 [facility] CenterLymphocytes (%) (Auto)2019-08-17 13:56:00 * Test Item Value Reference Range Interpretation Comments Lymphocytes (%) (Auto) (test code = 736-9) 18.5 18.0-39.1 [facility] CenterMonocytes (%) (Auto)2019-08-17 13:56:00* Test Item Value Reference Range Interpretation Comments Monocytes (%) (Auto) (test code = 5905-5) 6.0 4.4-11.3 [facility] CenterEosinophils (%) (Auto)2019-08-17 13:56:00 * Test Item Value Reference Range Interpretation Comments Eosinophils (%) (Auto) (test code = 713-8) 0.5 0.0-6.0 [facility] CenterBasophils (%) (Auto)2019-08-17 13:56:00* Test Item Value Reference Range Interpretation Comments Basophils (%) (Auto) (test code = 706-2) 0.8 0.0-1.0 [facility] CenterIM GRANULOCYTES %2019-08-17 13:56:00* Test Item Value Reference Range Interpretation Comments IM GRANULOCYTES % (test code = IM GRANULOCYTES %) 0.5 0.0- 1.0 [facility] CenterNeutrophils # (Auto)2019-08-17 13:56:00* Test Item Value Reference Range Interpretation Comments Neutrophils # (Auto) (test code = 751-8) 8.2 2.1-6.9 H [facility] CenterLymphocytes # (Auto)2019-08-17 13:56:00* Test Item Value Reference Range Interpretation Comments Lymphocytes # (Auto) (test code = 63551-8) 2.1 1.0-3.2 [facility] CenterMonocytes # (Auto)2019-08-17 13:56:00* Test Item Value Reference Range Interpretation Comments Monocytes # (Auto) (test code = 742-7) 0.7 0.2-0.8 [facility] CenterEosinophils # (Auto)2019-08-17 13:56:00* Test Item Value Reference Range Interpretation Comments Eosinophils # (Auto) (test code = 711-2) 0.1 0.0-0.4 [facility] CenterBasophils # (Auto)2019-08-17 13:56:00* Test Item Value Reference Range Interpretation Comments Basophils # (Auto) (test code = 704-7) 0.1 0.0-0.1 [facility] CenterAbsolute Immature Granulocyte (auto 2019-08-17 13:56:00* Test Item Value Reference Range Interpretation Comments Absolute Immature Granulocyte (auto (idania t code = Absolute Immature Granulocyte (auto) 0.05 0-0.1 [facility] CenterUrine Sggtz6836-65-32 13:56:00* Test Item Value Reference Range Interpretation Comments Urine Color (test code = 5778-6) YELLOW YELLOW [facility] CenterUrine Vegnqri4544-59-28 13:56:00* Test Item Value Reference Range Interpretation Comments Urine Clarity (test code = 62106-0) CLEAR CLEAR [facility] CenterUrine Specific Kjzjvra9999-54-95 13:56:00 * Test Item Value Reference Range Interpretation Comments Urine Specific [place] (test code = 5811-5) 1.010 1.010-1.02 5 [facility] CenterUrine xE6674-95-66 13:56:00* Test Item Value Reference Range Interpretation Comments Urine pH (test code = 11075-9) 6 5-7 [facility] Leukocyte Wsbuhcmx8496-95-51 13:56:00* Test Item Value Reference Range Interpretation Comments Urine Leukocyte Esterase (test code = 26989-1) TRACE NEGATIV E H [facility] CenterUrine Kcktyty9193-42-48 13:56:00* Test Item Value Reference Range Interpretation Comments Urine Nitrite (test code = 15952-8) NEGATIVE NEGATIVE [facility] CenterUrine Rhizgvr0112-62-67 13:56:00* Test Item Value Reference Range Interpretation Comments Urine Protein (test code = 27680-5) NEGATIVE NEGATIVE [facility] CenterUrine Glucose (UA)2019-08-17 13:56:00* Test Item Value Reference Range Interpretation Comments Urine Glucose (UA) (test code = 86014-6) NEGATIVE NEGATIVE [facility] CenterUrine Bwethvb8232-36-00 13:56:00* Test Item Value Reference Range Interpretation Comments Urine Ketones (test code = 09589-2) NEGATIVE NEGATIVE [facility] CenterUrine Owopnucgmccv2633-41-66 13:56:00* Test Item Value Reference Range Interpretation Comments Urine Urobilinogen (test code = 93317-5) 0.2 0.2-1 [facility] CenterUrine Oeribigmm8358-36-58 13:56:00* Test Item Value Reference Range Interpretation Comments Urine Bilirubin (test code = 1977-8) NEGATIVE NEGATIVE [facility] CenterUrine Xovpv1688-39-14 13:56:00* Test Item Value Reference Range Interpretation Comments Urine Blood (test code = 15150-9) MODERATE NEGATIVE [facility] CenterUrine Cjhjd0641-54-34 13:56:00* Test Item Value Reference Range Interpretation Comments Urine Color (test code = 5778-6) YELLOW YELLOW [facility] CenterUrine Yptdcjm1019-73-54 13:56:00* Test Item Value Reference Range Interpretation Comments Urine Clarity (test code = 00673-7) CLEAR CLEAR [facility] CenterUrine Specific Vupxtys8466-80-93 13:56:00 * Test Item Value Reference Range Interpretation Comments Urine Specific [place] (test code = 5811-5) 1.010 1.010-1.02 5 [facility] CenterUrine nJ5956-00-94 13:56:00* Test Item Value Reference Range Interpretation Comments Urine pH (test code = 96164-9) 6 5-7 [facility] CenterUrine Leukocyte Bynezchb2314-40-38 13:56:00* Test Item Value Reference Range Interpretation Comments Urine Leukocyte Esterase (test code = 41338-5) TRACE NEGATIV E H [facility] CenterUrine Rgyosun4624-66-80 13:56:00* Test Item Value Reference Range Interpretation Comments Urine Nitrite (test code = 69482-2) NEGATIVE NEGATIVE [facility] CenterUrine Dwisdyf6878-27-86 13:56:00* Test Item Value Reference Range Interpretation Comments Urine Protein (test code = 98463-1) NEGATIVE NEGATIVE [facility] CenterUrine Glucose (UA)2019-08-17 13:56:00* Test Item Value Reference Range Interpretation Comments Urine Glucose (UA) (test code = 14437-4) NEGATIVE NEGATIVE [facility] CenterUrine Zdcmdjf7639-05-09 13:56:00* Test Item Value Reference Range Interpretation Comments Urine Ketones (test code = 05346-5) NEGATIVE NEGATIVE [facility] CenterUrine Zjftiimhdvht5601-36-49 13:56:00* Test Item Value Reference Range Interpretation Comments Urine Urobilinogen (test code = 61302-6) 0.2 0.2-1 [facility] CenterUrine Xdtsbgmls8193-11-16 13:56:00* Test Item Value Reference Range Interpretation Comments Urine Bilirubin (test code = 1977-8) NEGATIVE NEGATIVE [facility] CenterUrine Mpeiq7632-19-27 13:56:00* Test Item Value Reference Range Interpretation Comments Urine Blood (test code = 76510-0) MODERATE NEGATIVE [facility] CenterBREAST ULTRASOUND YBOAKJJMH5548-31-03 16:54:46- BREAST ULTRASOUND BILATERALULTRASOUND OF BOTH BREASTS [...] in 1 year.Bridgett Granger M.D. dm/:01/21/2019 16:54:46 Hand Loom Weaver: Praveena TORRES, [facility]-letter sent: BIRADS 1-2 Combo FU Letter Ultrasound BI-RADS: 2 BenignDIAG MAMM RIGHT JERRY CAD WCNSOHW3269-71-95 16:52:59 - DIAG MAMM RIGHT JERRY CAD DIGITALUNILATERAL RIGHT DIGITAL DIAGNOSTIC MAMMOGRAM 3D/2D WITH CAD: 01/21/2019CLINICAL: Recall from screening. Digital breast tomosynthesis was performed in addition to routine CC and MLO views. Current mammographic images were evaluated by either a [employer] M-Vu or a [employer] ImageChecker CAD (computer aided detection system). Comparison is made to exams dated 01/08/2019 mammogram, 01/01/2018 mammogram, and 12/23/2016 mammogram - [facility]-. The tissue of the right breast is heterogeneously dense. This may lower the sensitivity of mammography. No suspicious mass, architectural distortion, malignant type calcification, or lymph node abnormality detected. IMPRESSION: INCOMPLETE ASSESSMENT: ADDITIONAL IMAGING EVALUATION RECOMMENDEDUltrasound pending for additional evaluation. Bridgett Granger M.D. dm/penrad:01/21/2019 16:52:59 Entry: - 01/22/2019 11:42:22Imaging Technologist: Ilene TORRES, [facility]-Mammogram BI-RADS: 0 IndeterminateSCR MAMM BILATERAL JERRY CAD DIGITAL 2019-01-08 13:02:39 - SCR MAMM BILATERAL JERRY CAD DIGITALBILATERAL DIGITAL SCREENING MAMMOGRAM 3D/2D WITH CAD: 01/08/2019CLINICAL: Asymptomatic. Digital breast tomosynthesis was performed in addition to routine CC and MLO views. Current mammographic images were evaluated by either a [employer] M-Vu or a [employer] ImageTakwin Labser CAD (computer aided detection system). Comparison is made to exams dated 01/01/2018 mammogram, 12/23/2016 mammogram, and 12/18/2015 mammogram - [facility]-. There are scattered fibroglandular tissues [...] ultrasound is recommended.Pranav vera M.D. ss/:01/08/2019 13:02:39 Hand Loom Weaver: Tiny TORRES [facility]-letter sent: Additional Imaging Mammogram BI-RADS : 0 IndeterminateCT CERVICAL SPINE OQ3137-17-69 11:30:00 [place] [address] Patient Name: VICKI ESPARZA MR #: [id number] : 1940 Age/Sex: 77/F Req #: [id number] [facility] Physician: Ordered by: INNA SÁNCHEZ MD Report #: [id number] Location: ER Room/Bed: Procedure: [id number] CT/CT CERVICAL SPINE W O Exam Date: [...] PM Dictated By: ASAF VIEIRA MD, MD 33 Transcribed By: TROY on 03/26/181733 COPY TO: INNA SÁNCHEZ MD CT BRAIN WO 2018-03-26 11:25:00 [facility] [address] [address] Patient Name: VICKI ESPARZA MR #: [id number] : 1940 Age/Sex: 77/F Req #: [id number] Adm Physician: Ordered by: RUPERTO RYAN NURSE EXAMINER Report #: [id number] Location: ER Room/Bed: Procedure: [id number] CT/CT BRAIN WO Exam D ate: 03/26/18 [...] Comments Creatine Kinase MB (test code = 19137-0) 1.30 0-5.0 [place] 18736018-05-17 15:14:00* Test Item Value Reference Range Interpretation Comments Troponin I (test code = PME6071) -0.001 0-0.300 [facility] CenterCreatine Kinase KK0150-34-88 15:14:00* Test Item Value Reference Range Interpretation Comments Creatine Kinase MB (test code = 49685-3) 1.30 0-5.0 [place] 18736018-05-17 15:14:00* Test Item Value Reference Range Interpretation Comments Troponin I (test code = STK9747) -0.001 0-0.300 [facility] CenterCreatine Kinase XZ7861-65-37 15:14:00* Test Item Value Reference Range Interpretation Comments Creatine Kinase MB (test code = 03188-9) 1.30 0-5.0 [place] 18736018-05-17 15:14:00* Test Item Value Reference Range Interpretation Comments Troponin I (test code = JQZ2150) -0.001 0-0.300 [facility] CenterCreatine Kinase PG2407-65-57 15:14:00* Test Item Value Reference Range Interpretation Comments Creatine Kinase MB (test code = 41601-3) 1.30 0-5.0 [place] 18736018-05-17 15:14:00* Test Item Value Reference Range Interpretation Comments Troponin I (test code = XJZ9738) < 0.001 0-0.300 [facility] CenterCreatine Dacejk4167-25-17 15:08:00* Test Item Value Reference Range Interpretation Comments Creatine Kinase (test code = 2157-6) 41 29-168 [facility] CenterCreatine Dxfgie3762-46-84 15:08:00* Test Item Value Reference Range Interpretation Comments Creatine Kinase (test code = 2157-6) 41 29-168 [facility] CenterCreatine Mxbkwc7236-37-28 15:08:00* Test Item Value Reference Range Interpretation Comments Creatine Kinase (test code = 2157-6) 41 29-168 [facility] CenterCreatine Yexfzb6478-05-01 15:08:00* Test Item Value Reference Range Interpretation Comments Creatine Kinase (test code = 2157-6) 41 -168 [facility] CenterB-Type Natriuretic Wgqdhet2199-40-54 14:23:00* Test Item Value Reference Range Interpretation Comments B-Type Natriuretic Peptide (test code = 91232-1) 288.6 0-100 H [facility] CenterB-Type Natriuretic Sduhriq9544-62-90 14:23:00* Test Item Value Reference Range Interpretation Comments B-Type Natriuretic Peptide (test code = 79863-2) 288.6 0-100 H [facility] CenterB-Type Natriuretic Katdcag8251-31-29 14:23:00* Test Item Value Reference Range Interpretation Comments B-Type Natriuretic Peptide (test code = 15382-0) 288.6 0-100 H [facility] CenterB-Type Natriuretic Oyaxvwm6944-51-87 14:23:00* Test Item Value Reference Range Interpretation Comments B-Type Natriuretic Peptide (test code = 26118-8) 288.6 0-100 [facility] Sxpii6433-59-61 12:24:00* Test Item Value Reference Range Interpretation Comments Sodium Level (test code = 2951-2) 142 136-145 [facility] CenterPotassium Piyka3324-68-19 12:24:00* Test Item Value Reference Range Interpretation Comments Potassium Level (test code = 2823-3) 3.6 3.5-5.1 [facility] CenterChloride Dtsuk7353-21-64 12:24:00* Test Item Value Reference Range Interpretation Comments Chloride Level (test code = 2075-0) 104 98-107 [facility] CenterCarbon Dioxide Awydw5619-08-38 12:24:00* Test Item Value Reference Range Interpretation Comments Carbon Dioxide Level (test code = 2028-9) 27 22-29 [facility] CenterAnion Ews5630-32-93 12:24:00* Test Item Value Reference Range Interpretation Comments Anion Gap (test code = 73543-1) 14.6 8-16 [facility] CenterBlood Urea Ejgytknx6917-58-38 12:24:00* Test Item Value Reference Range Interpretation Comments Blood Urea Nitrogen (test code = 3094-0) 13 7-26 [facility] CenterCreatinine2018-05-17 12:24:00* Test Item Value Reference Range Interpretation Comments Creatinine (test code = 2160-0) 1.31 0.57-1.11 H [facility] CenterBUN/Creatinine Osldm6964-55-21 12:24:00* Test Item Value Reference Range Interpretation Comments BUN/Creatinine Ratio (test code = 3097-3) 10 6-25 [facility] CenterEstimat Glomerular Filtration Rate 2018-02-15 12:24:00* Test Item Value Reference Range Interpretation Comments Estimat Glomerular Filtration Rate (test code = 34380-1) 39 >60 L Ranges were taken from the National Kidney Disease Education Program and the [employer] [facility] [employer] literature.Reference ranges:60 or greater: Ixqado53-51 ( for 3 consecutive months): Chronic kidney disease 15 or less: Kidney failureD[facility] Regional Medical CenterGlucose Ecczl5494-19-46 12:24:00* Test Item Value Reference Range Interpretation Comments Glucose Level (test code = WKX5676) 95 74-118 [facility] CenterCalcium Whahr7638-92-10 12:24:00* Test Item Value Reference Range Interpretation Comments Calcium Level (test code = 96862-5) 10.5 8.4-10.2 H [facility] CenterTotal Jkiburekd7412-02-81 12:24:00* Test Item Value Reference Range Interpretation Comments Total Bilirubin (test code = 1975-2) 0.8 0.2-1.2 [facility] CenterAspartate Amino Transf (AST/SGOT) 2018-02-15 12:24:00* Test Item Value Reference Range Interpretation Comments Aspartate Amino Transf (AST/SGOT) (test code = Aspartate Amino Transf (AST/SGOT)) 16 5-34 [facility] CenterAlanine Aminotransferase (ALT/SGPT) 2018-02-15 12:24:00* Test Item Value Reference Range Interpretation Comments Alanine Aminotransferase (ALT/SGPT) (test code = 1742-6) 9 0-55 [facility] CenterTotal Qqylpaq4070-95-80 12:24:00* Test Item Value Reference Range Interpretation Comments Total Protein (test code = 2885-2) 6.6 6.5-8.1 [facility] CenterAlbumin2018-05-17 12:24:00* Test Item Value Reference Range Interpretation Comments Albumin (test code = 1751-7) 3.1 3.5-5.0 L [facility] CenterGlobulin2018-05-17 12:24:00* Test Item Value Reference Range Interpretation Comments Globulin (test code = 18169-1) 3.5 2.3-3.5 [facility] CenterAlbumin/Globulin Mvvms8008-15-71 12:24:00 * Test Item Value Reference Range Interpretation Comments Albumin/Globulin Ratio (test code = 1759-0) 0.9 0.8-2.0 [facility] CenterAlkaline Upggkxbxjbr4016-00-44 12:24:00* Test Item Value Reference Range Interpretation Comments Alkaline Phosphatase (test code = 6768-6) 72 40-150 [facility]odium Opktw2570-61-81 12:24:00* Test Item Value Reference Range Interpretation Comments Sodium Level (test code = 2951-2) 142 136-145 [facility] CenterPotassium Slith3120-35-34 12:24:00* Test Item Value Reference Range Interpretation Comments Potassium Level (test code = 2823-3) 3.6 3.5-5.1 [facility] CenterChloride Vjlpu1921-72-39 12:24:00* Test Item Value Reference Range Interpretation Comments Chloride Level (test code = 2075-0) 104 98-107 [facility] CenterCarbon Dioxide Caqbk1474-84-56 12:24:00* Test Item Value Reference Range Interpretation Comments Carbon Dioxide Level (test code = 2028-9) 27 22-29 [facility] CenterAnion Nqv6750-13-35 12:24:00* Test Item Value Reference Range Interpretation Comments Anion Gap (test code = 44571-0) 14.6 8-16 [facility] CenterBlood Urea Eantagpx9926-12-68 12:24:00* Test Item Value Reference Range Interpretation Comments Blood Urea Nitrogen (test code = 3094-0) 13 7-26 [facility] CenterCreatinine2018-05-17 12:24:00* Test Item Value Reference Range Interpretation Comments Creatinine (test code = 2160-0) 1.31 0.57-1.11 H [facility] CenterBUN/Creatinine Rusdq9481-64-08 12:24:00* Test Item Value Reference Range Interpretation Comments BUN/Creatinine Ratio (test code = 3097-3) 10 6-25 [facility] CenterEstimat Glomerular Filtration Rate 2018-02-15 12:24:00* Test Item Value Reference Range Interpretation Comments Estimat Glomerular Filtration Rate (test code = 30107-3) 39 >60 L Ranges were taken from the National Kidney Disease Education Program and the [employer] [facility] literature.Reference ranges:60 or greater: Crctxl97-67 ( for 3 consecutive months): Chronic kidney disease 15 or less: Kidney failureD[facility] Regional Medical CenterGlucose Ozbef0818-91-95 12:24:00* Test Item Value Reference Range Interpretation Comments Glucose Level (test code = QIN5162) 95 74-118 [facility] CenterCalcium Dwkik4909-87-02 12:24:00* Test Item Value Reference Range Interpretation Comments Calcium Level (test code = 10324-7) 10.5 8.4-10.2 H [facility] CenterTotal Rkdybstyz5847-34-75 12:24:00* Test Item Value Reference Range Interpretation Comments Total Bilirubin (test code = 1975-2) 0.8 0.2-1.2 [facility] CenterAspartate Amino Transf (AST/SGOT) 2018-02-15 12:24:00* Test Item Value Reference Range Interpretation Comments Aspartate Amino Transf (AST/SGOT) (test code = Aspartate Amino Transf (AST/SGOT)) 16 5-34 [facility] CenterAlanine Aminotransferase (ALT/SGPT) 2018-02-15 12:24:00* Test Item Value Reference Range Interpretation Comments Alanine Aminotransferase (ALT/SGPT) (test code = 1742-6) 9 0-55 [facility] CenterTotal Ghvffpl3639-08-79 12:24:00* Test Item Value Reference Range Interpretation Comments Total Protein (test code = 2885-2) 6.6 6.5-8.1 [facility] CenterAlbumin2018-05-17 12:24:00* Test Item Value Reference Range Interpretation Comments Albumin (test code = 1751-7) 3.1 3.5-5.0 L [facility] CenterGlobulin2018-05-17 12:24:00* Test Item Value Reference Range Interpretation Comments Globulin (test code = 89480-8) 3.5 2.3-3.5 [facility] CenterAlbumin/Globulin Olzug3276-40-63 12:24:00 * Test Item Value Reference Range Interpretation Comments Albumin/Globulin Ratio (test code = 1759-0) 0.9 0.8-2.0 [facility] CenterAlkaline Sjuctguwmil6551-16-28 12:24:00* Test Item Value Reference Range Interpretation Comments Alkaline Phosphatase (test code = 6768-6) 72 40-150 [facility]odium Sbpha8650-01-40 12:24:00* Test Item Value Reference Range Interpretation Comments Sodium Level (test code = 2951-2) 142 136-145 [facility] CenterPotassium Usuao3989-91-92 12:24:00* Test Item Value Reference Range Interpretation Comments Potassium Level (test code = 2823-3) 3.6 3.5-5.1 [facility] CenterChloride Kaysj9191-79-94 12:24:00* Test Item Value Reference Range Interpretation Comments Chloride Level (test code = 2075-0) 104 98-107 [facility] CenterCarbon Dioxide Ylizi8868-56-97 12:24:00* Test Item Value Reference Range Interpretation Comments Carbon Dioxide Level (test code = 2028-9) 27 22-29 [facility] CenterAnion Sbn7557-04-18 12:24:00* Test Item Value Reference Range Interpretation Comments Anion Gap (test code = 16838-6) 14.6 8-16 [facility] CenterBlood Urea Tcabmrwe4241-88-81 12:24:00* Test Item Value Reference Range Interpretation Comments Blood Urea Nitrogen (test code = 3094-0) 13 7-26 [facility] CenterCreatinine2018-05-17 12:24:00* Test Item Value Reference Range Interpretation Comments Creatinine (test code = 2160-0) 1.31 0.57-1.11 H [facility] CenterBUN/Creatinine Plcmb2859-13-59 12:24:00* Test Item Value Reference Range Interpretation Comments BUN/Creatinine Ratio (test code = 3097-3) 10 6-25 [facility] CenterEstimat Glomerular Filtration Rate 2018-02-15 12:24:00* Test Item Value Reference Range Interpretation Comments Estimat Glomerular Filtration Rate (test code = 31706-5) 39 >60 L Ranges were taken from the National Kidney Disease Education Program and the [employer] [facility] [employer] literature.Reference ranges:60 or greater: Xoehkr77-26 ( for 3 consecutive months): Chronic kidney disease 15 or less: Kidney failureD[facility] Medical CenterGlucose Gowsj1708-32-37 12:24:00* Test Item Value Reference Range Interpretation Comments Glucose Level (test code = [id number]) 95 74-118 [facility] CenterCalcium Zbefz4244-72-90 12:24:00* Test Item Value Reference Range Interpretation Comments Calcium Level (test code = 30172-1) 10.5 8.4-10.2 H [facility] CenterTotal Hcvmgwdee9459-18-36 12:24:00* Test Item Value Reference Range Interpretation Comments Total Bilirubin (test code = 1975-2) 0.8 0.2-1.2 [facility] CenterAspartate Amino Transf (AST/SGOT) 2018-02-15 12:24:00* Test Item Value Reference Range Interpretation Comments Aspartate Amino Transf (AST/SGOT) (test code = Aspartate Amino Transf (AST/SGOT)) 16 5-34 [facility] CenterAlanine Aminotransferase (ALT/SGPT) 2018-02-15 12:24:00* Test Item Value Reference Range Interpretation Comments Alanine Aminotransferase (ALT/SGPT) (test code = 1742-6) 9 0-55 [facility] CenterTotal Gevwjtc7077-03-58 12:24:00* Test Item Value Reference Range Interpretation Comments Total Protein (test code = 2885-2) 6.6 6.5-8.1 [facility] CenterAlbumin2018-05-17 12:24:00* Test Item Value Reference Range Interpretation Comments Albumin (test code = 1751-7) 3.1 3.5-5.0 L [facility] CenterGlobulin2018-05-17 12:24:00* Test Item Value Reference Range Interpretation Comments Globulin (test code = 20820-4) 3.5 2.3-3.5 [facility] CenterAlbumin/Globulin Fvzza6939-33-10 12:24:00 * Test Item Value Reference Range Interpretation Comments Albumin/Globulin Ratio (test code = 1759-0) 0.9 0.8-2.0 [facility] CenterAlkaline Fhkhfodlyei9366-32-39 12:24:00* Test Item Value Reference Range Interpretation Comments Alkaline Phosphatase (test code = 6768-6) 72 40-150 [facility] Ntytr1294-19-14 12:24:00* Test Item Value Reference Range Interpretation Comments Sodium Level (test code = 2951-2) 142 136-145 [facility] CenterPotassium Ajqez9227-97-58 12:24:00* Test Item Value Reference Range Interpretation Comments Potassium Level (test code = 2823-3) 3.6 3.5-5.1 [facility] CenterChloride Wvnoh1304-48-03 12:24:00* Test Item Value Reference Range Interpretation Comments Chloride Level (test code = 2075-0) 104 98-107 [facility] CenterCarbon Dioxide Bfjrp9069-93-78 12:24:00* Test Item Value Reference Range Interpretation Comments Carbon Dioxide Level (test code = 2028-9) 27 22-29 [facility] CenterAnion Lcs0438-77-59 12:24:00* Test Item Value Reference Range Interpretation Comments Anion Gap (test code = 97641-5) 14.6 8-16 [facility] CenterBlood Urea Rdvyozgt1078-29-56 12:24:00* Test Item Value Reference Range Interpretation Comments Blood Urea Nitrogen (test code = 3094-0) 13 7-26 [facility] CenterCreatinine2018-05-17 12:24:00* Test Item Value Reference Range Interpretation Comments Creatinine (test code = 2160-0) 1.31 0.57-1.11 H [facility] CenterBUN/Creatinine Ihick8149-47-81 12:24:00* Test Item Value Reference Range Interpretation Comments BUN/Creatinine Ratio (test code = 3097-3) 10 6-25 [facility] CenterEstimat Glomerular Filtration Rate 2018-02-15 12:24:00* Test Item Value Reference Range Interpretation Comments Estimat Glomerular Filtration Rate (test code = 086039584) 39 >60 L Ranges were taken from the National Kidney Disease Education Program and the [facility] [employer] literature.Reference ranges:60 or greater: Gzoewv30-34 ( for 3 consecutive months): Chronic kidney disease 15 or less: Kidney failureDallas Regional Medical CenterGlucose Emabx4411-74-81 12:24:00* Test Item Value Reference Range Interpretation Comments Glucose Level (test code = WCX1362) 95 74-118 [facility] CenterCalcium Shbzm1584-91-38 12:24:00* Test Item Value Reference Range Interpretation Comments Calcium Level (test code = 65218-2) 10.5 8.4-10.2 H [facility] CenterTotal Okovohgrc8417-32-40 12:24:00* Test Item Value Reference Range Interpretation Comments Total Bilirubin (test code = 1975-2) 0.8 0.2-1.2 [facility] CenterAspartate Amino Transf (AST/SGOT) 2018-02-15 12:24:00* Test Item Value Reference Range Interpretation Comments Aspartate Amino Transf (AST/SGOT) (test code = Aspartate Amino Transf (AST/SGOT)) 16 5-34 [facility] CenterAlanine Aminotransferase (ALT/SGPT) 2018-02-15 12:24:00* Test Item Value Reference Range Interpretation Comments Alanine Aminotransferase (ALT/SGPT) (test code = 1742-6) 9 0-55 [facility] CenterTotal Bnnzvcl4709-86-75 12:24:00* Test Item Value Reference Range Interpretation Comments Total Protein (test code = 2885-2) 6.6 6.5-8.1 [facility] CenterAlbumin2018-05-17 12:24:00* Test Item Value Reference Range Interpretation Comments Albumin (test code = 1751-7) 3.1 3.5-5.0 L [facility] CenterGlobulin2018-05-17 12:24:00* Test Item Value Reference Range Interpretation Comments Globulin (test code = 22228-1) 3.5 2.3-3.5 [facility] CenterAlbumin/Globulin Alcii7424-56-54 12:24:00 * Test Item Value Reference Range Interpretation Comments Albumin/Globulin Ratio (test code = 1759-0) 0.9 0.8-2.0 [facility] CenterAlkaline Omeyqgkukzm0605-42-62 12:24:00* Test Item Value Reference Range Interpretation Comments Alkaline Phosphatase (test code = 6768-6) 72 40-150 [facility] CenterProthrombin Xvgb7730-99-36 12:16:00* Test Item Value Reference Range Interpretation Comments Prothrombin Time (test code = 5902-2) 12.4 11.9-14.5 [facility] CenterProthromb Time International Ratio 2018-02-15 12:16:00* Test Item Value Reference Range Interpretation Comments Prothromb Time International Ratio (test code = 6301-6) 1.00 Oral Anticoagulant Therapy INR Values:1. Low Intensity Therapy 1.5 - 2.02 . Moderate Intensity Therapy 2.0 - 3.03. High Intensity Therapy(1) 2.5 - 3. 54. High Intensity Therapy(2) 3.0 - 4.05. Panic Value INR > 5.0 [facility] CenterActivated Partial Thromboplast Time 2018-02-15 12:16:00* Test Item Value Reference Range Interpretation Comments Activated Partial Thromboplast Time (test code = 06991-0) 24.2 23.8-35.5 [facility] CenterProthrombin Ofso3912-93-11 12:16:00* Test Item Value Reference Range Interpretation Comments Prothrombin Time (test code = 5902-2) 12.4 11.9-14.5 [facility] CenterProthromb Time International Ratio 2018-02-15 12:16:00* Test Item Value Reference Range Interpretation Comments Prothromb Time International Ratio (test code = 6301-6) 1.00 Oral Anticoagulant Therapy INR Values:1. Low Intensity Therapy 1.5 - 2.02 . Moderate Intensity Therapy 2.0 - 3.03. High Intensity Therapy(1) 2.5 - 3. 54. High Intensity Therapy(2) 3.0 - 4.05. Panic Value INR > 5.0 [facility] CenterActivated Partial Thromboplast Time 2018-02-15 12:16:00* Test Item Value Reference Range Interpretation Comments Activated Partial Thromboplast Time (test code = 12507-8) 24.2 23.8-35.5 [facility] CenterProthrombin Dcvl7747-81-40 12:16:00* Test Item Value Reference Range Interpretation Comments Prothrombin Time (test code = 5902-2) 12.4 11.9-14.5 [facility] CenterProthromb Time International Ratio 2018-02-15 12:16:00* Test Item Value Reference Range Interpretation Comments Prothromb Time International Ratio (test code = 6301-6) 1.00 Oral Anticoagulant Therapy INR Values:1. Low Intensity Therapy 1.5 - 2.02 . Moderate Intensity Therapy 2.0 - 3.03. High Intensity Therapy(1) 2.5 - 3. 54. High Intensity Therapy(2) 3.0 - 4.05. Panic Value INR > 5.0 [facility] CenterActivated Partial Thromboplast Time 2018-02-15 12:16:00* Test Item Value Reference Range Interpretation Comments Activated Partial Thromboplast Time (test code = 65642-8) 24.2 23.8-35.5 [facility] CenterProthrombin Tpcn0890-52-16 12:16:00* Test Item Value Reference Range Interpretation Comments Prothrombin Time (test code = 5902-2) 12.4 11.9-14.5 [facility] CenterProthromb Time International Ratio 2018-02-15 12:16:00* Test Item Value Reference Range Interpretation Comments Prothromb Time International Ratio (test code = 6301-6) 1.00 Oral Anticoagulant Therapy INR Values:1. Low Intensity Therapy 1.5 - 2.02 . Moderate Intensity Therapy 2.0 - 3.03. High Intensity Therapy(1) 2.5 - 3. 54. High Intensity Therapy(2) 3.0 - 4.05. Panic Value INR > 5.0 [facility] CenterActivated Partial Thromboplast Time 2018-02-15 12:16:00* Test Item Value Reference Range Interpretation Comments Activated Partial Thromboplast Time (test code = 27571-0) 24.2 23.8-35.5 [facility] CenterWhite Blood Vpvru2720-82-19 12:08:00* Test Item Value Reference Range Interpretation Comments White Blood Count (test code = 6690-2) 9.14 4.8-10.8 [facility] CenterRed Blood Haodm4011-12-50 12:08:00* Test Item Value Reference Range Interpretation Comments Red Blood Count (test code = 789-8) 3.97 3.6-5.1 [facility] CenterHemoglobin2018-05-17 12:08:00* Test Item Value Reference Range Interpretation Comments Hemoglobin (test code = 88337-3) 12.3 12.0-16.0 [facility] CenterHematocrit2018-05-17 12:08:00* Test Item Value Reference Range Interpretation Comments Hematocrit (test code = 4544-3) 37.3 34.2-44.1 [facility] CenterMean Corpuscular Oanych3243-70-72 12:08:00* Test Item Value Reference Range Interpretation Comments Mean Corpuscular Volume (test code = 787-2) 94.0 81-99 [facility] CenterMean Corpuscular Pxeisxgwca7304-67-79 12:08:00* Test Item Value Reference Range Interpretation Comments Mean Corpuscular Hemoglobin (test code = 785-6) 31.0 28-32 [facility] CenterMean Corpuscular Hemoglobin Concent 2018-02-15 12:08:00* Test Item Value Reference Range Interpretation Comments Mean Corpuscular Hemoglobin Concent (test code = 786-4) 33.0 31-35 [facility] CenterRed Cell Distribution Ldxqh0992-59-26 12:08:00* Test Item Value Reference Range Interpretation Comments Red Cell Distribution Width (test code = 56866-3) 13.1 11.7 -14.4 [facility] CenterPlatelet Brryo3169-38-43 12:08:00* Test Item Value Reference Range Interpretation Comments Platelet Count (test code = 777-3) 333 140-360 [facility] CenterNeutrophils (%) (Auto)2018-02-15 12:08:00 * Test Item Value Reference Range Interpretation Comments Neutrophils (%) (Auto) (test code = 20971-7) 74.8 38.7-80.0 [facility] CenterLymphocytes (%) (Auto)2018-02-15 12:08:00 * Test Item Value Reference Range Interpretation Comments Lymphocytes (%) (Auto) (test code = 736-9) 15.0 18.0-39.1 L [facility] CenterMonocytes (%) (Auto)2018-02-15 12:08:00* Test Item Value Reference Range Interpretation Comments Monocytes (%) (Auto) (test code = 5905-5) 8.3 4.4-11.3 [facility] CenterEosinophils (%) (Auto)2018-02-15 12:08:00 * Test Item Value Reference Range Interpretation Comments Eosinophils (%) (Auto) (test code = 713-8) 0.7 0.0-6.0 [facility] CenterBasophils (%) (Auto)2018-02-15 12:08:00* Test Item Value Reference Range Interpretation Comments Basophils (%) (Auto) (test code = 706-2) 0.8 0.0-1.0 [facility] CenterIM GRANULOCYTES %2018-02-15 12:08:00* Test Item Value Reference Range Interpretation Comments IM GRANULOCYTES % (test code = IM GRANULOCYTES %) 0.4 0.0- 1.0 [facility] CenterNeutrophils # (Auto)2018-02-15 12:08:00* Test Item Value Reference Range Interpretation Comments Neutrophils # (Auto) (test code = 751-8) 6.8 2.1-6.9 [facility] CenterLymphocytes # (Auto)2018-02-15 12:08:00* Test Item Value Reference Range Interpretation Comments Lymphocytes # (Auto) (test code = 69180-9) 1.4 1.0-3.2 [facility] CenterMonocytes # (Auto)2018-02-15 12:08:00* Test Item Value Reference Range Interpretation Comments Monocytes # (Auto) (test code = 742-7) 0.8 0.2-0.8 [facility] CenterEosinophils # (Auto)2018-02-15 12:08:00* Test Item Value Reference Range Interpretation Comments Eosinophils # (Auto) (test code = 711-2) 0.1 0.0-0.4 [facility] CenterBasophils # (Auto)2018-02-15 12:08:00* Test Item Value Reference Range Interpretation Comments Basophils # (Auto) (test code = 704-7) 0.1 0.0-0.1 [facility] CenterAbsolute Immature Granulocyte (auto 2018-02-15 12:08:00* Test Item Value Reference Range Interpretation Comments Absolute Immature Granulocyte (auto (idania t code = Absolute Immature Granulocyte (auto) 0.04 0-0.1 [facility] CenterWhite Blood Lyqhi8852-93-99 12:08:00* Test Item Value Reference Range Interpretation Comments White Blood Count (test code = 6690-2) 9.14 4.8-10.8 [facility] CenterRed Blood Zxkbl5962-53-69 12:08:00* Test Item Value Reference Range Interpretation Comments Red Blood Count (test code = 789-8) 3.97 3.6-5.1 [facility] CenterHemoglobin2018-05-17 12:08:00* Test Item Value Reference Range Interpretation Comments Hemoglobin (test code = 09718-6) 12.3 12.0-16.0 [facility] CenterHematocrit2018-05-17 12:08:00* Test Item Value Reference Range Interpretation Comments Hematocrit (test code = 4544-3) 37.3 34.2-44.1 [facility] CenterMean Corpuscular Oovaht6850-03-58 12:08:00* Test Item Value Reference Range Interpretation Comments Mean Corpuscular Volume (test code = 787-2) 94.0 81-99 [facility] CenterMean Corpuscular Lnfpcpseyh6893-47-62 12:08:00* Test Item Value Reference Range Interpretation Comments Mean Corpuscular Hemoglobin (test code = 785-6) 31.0 28-32 [facility] CenterMean Corpuscular Hemoglobin Concent 2018-02-15 12:08:00* Test Item Value Reference Range Interpretation Comments Mean Corpuscular Hemoglobin Concent (test code = 786-4) 33.0 31-35 [facility] CenterRed Cell Distribution Nubgv1103-64-14 12:08:00* Test Item Value Reference Range Interpretation Comments Red Cell Distribution Width (test code = 90556-9) 13.1 11.7 -14.4 [facility] CenterPlatelet Rtzhy9092-76-89 12:08:00* Test Item Value Reference Range Interpretation Comments Platelet Count (test code = 777-3) 333 140-360 [facility] CenterNeutrophils (%) (Auto)2018-02-15 12:08:00 * Test Item Value Reference Range Interpretation Comments Neutrophils (%) (Auto) (test code = 07155-2) 74.8 38.7-80.0 [facility] CenterLymphocytes (%) (Auto)2018-02-15 12:08:00 * Test Item Value Reference Range Interpretation Comments Lymphocytes (%) (Auto) (test code = 736-9) 15.0 18.0-39.1 L [facility] CenterMonocytes (%) (Auto)2018-02-15 12:08:00* Test Item Value Reference Range Interpretation Comments Monocytes (%) (Auto) (test code = 5905-5) 8.3 4.4-11.3 [facility] CenterEosinophils (%) (Auto)2018-02-15 12:08:00 * Test Item Value Reference Range Interpretation Comments Eosinophils (%) (Auto) (test code = 713-8) 0.7 0.0-6.0 [facility] CenterBasophils (%) (Auto)2018-02-15 12:08:00* Test Item Value Reference Range Interpretation Comments Basophils (%) (Auto) (test code = 706-2) 0.8 0.0-1.0 [facility] CenterIM GRANULOCYTES %2018-02-15 12:08:00* Test Item Value Reference Range Interpretation Comments IM GRANULOCYTES % (test code = IM GRANULOCYTES %) 0.4 0.0- 1.0 [facility] CenterNeutrophils # (Auto)2018-02-15 12:08:00* Test Item Value Reference Range Interpretation Comments Neutrophils # (Auto) (test code = 751-8) 6.8 2.1-6.9 [facility] CenterLymphocytes # (Auto)2018-02-15 12:08:00* Test Item Value Reference Range Interpretation Comments Lymphocytes # (Auto) (test code = 86991-7) 1.4 1.0-3.2 [facility] CenterMonocytes # (Auto)2018-02-15 12:08:00* Test Item Value Reference Range Interpretation Comments Monocytes # (Auto) (test code = 742-7) 0.8 0.2-0.8 [facility] CenterEosinophils # (Auto)2018-02-15 12:08:00* Test Item Value Reference Range Interpretation Comments Eosinophils # (Auto) (test code = 711-2) 0.1 0.0-0.4 [facility] CenterBasophils # (Auto)2018-02-15 12:08:00* Test Item Value Reference Range Interpretation Comments Basophils # (Auto) (test code = 704-7) 0.1 0.0-0.1 [facility] CenterAbsolute Immature Granulocyte (auto 2018-02-15 12:08:00* Test Item Value Reference Range Interpretation Comments Absolute Immature Granulocyte (auto (idania t code = Absolute Immature Granulocyte (auto) 0.04 0-0.1 [facility] CenterWhite Blood Euwef7848-04-44 12:08:00* Test Item Value Reference Range Interpretation Comments White Blood Count (test code = 6690-2) 9.14 4.8-10.8 [facility] CenterRed Blood Snrtq1867-93-83 12:08:00* Test Item Value Reference Range Interpretation Comments Red Blood Count (test code = 789-8) 3.97 3.6-5.1 [facility] CenterHemoglobin2018-05-17 12:08:00* Test Item Value Reference Range Interpretation Comments Hemoglobin (test code = 37011-2) 12.3 12.0-16.0 [facility] CenterHematocrit2018-05-17 12:08:00* Test Item Value Reference Range Interpretation Comments Hematocrit (test code = 4544-3) 37.3 34.2-44.1 [facility] CenterMean Corpuscular Tloria7884-55-82 12:08:00* Test Item Value Reference Range Interpretation Comments Mean Corpuscular Volume (test code = 787-2) 94.0 81-99 [facility] CenterMean Corpuscular Stsspruujx0626-01-72 12:08:00* Test Item Value Reference Range Interpretation Comments Mean Corpuscular Hemoglobin (test code = 785-6) 31.0 28-32 [facility] CenterMean Corpuscular Hemoglobin Concent 2018-02-15 12:08:00* Test Item Value Reference Range Interpretation Comments Mean Corpuscular Hemoglobin Concent (test code = 786-4) 33.0 31-35 [facility] CenterRed Cell Distribution Iuqng8953-29-45 12:08:00* Test Item Value Reference Range Interpretation Comments Red Cell Distribution Width (test code = 77692-8) 13.1 11.7 -14.4 [facility] CenterPlatelet Cekio9752-99-07 12:08:00* Test Item Value Reference Range Interpretation Comments Platelet Count (test code = 777-3) 333 140-360 [facility] CenterNeutrophils (%) (Auto)2018-02-15 12:08:00 * Test Item Value Reference Range Interpretation Comments Neutrophils (%) (Auto) (test code = 33215-5) 74.8 38.7-80.0 [facility] CenterLymphocytes (%) (Auto)2018-02-15 12:08:00 * Test Item Value Reference Range Interpretation Comments Lymphocytes (%) (Auto) (test code = 736-9) 15.0 18.0-39.1 L [facility] CenterMonocytes (%) (Auto)2018-02-15 12:08:00* Test Item Value Reference Range Interpretation Comments Monocytes (%) (Auto) (test code = 5905-5) 8.3 4.4-11.3 [facility] CenterEosinophils (%) (Auto)2018-02-15 12:08:00 * Test Item Value Reference Range Interpretation Comments Eosinophils (%) (Auto) (test code = 713-8) 0.7 0.0-6.0 [facility] CenterBasophils (%) (Auto)2018-02-15 12:08:00* Test Item Value Reference Range Interpretation Comments Basophils (%) (Auto) (test code = 706-2) 0.8 0.0-1.0 [facility] CenterIM GRANULOCYTES %2018-02-15 12:08:00* Test Item Value Reference Range Interpretation Comments IM GRANULOCYTES % (test code = IM GRANULOCYTES %) 0.4 0.0- 1.0 [facility] CenterNeutrophils # (Auto)2018-02-15 12:08:00* Test Item Value Reference Range Interpretation Comments Neutrophils # (Auto) (test code = 751-8) 6.8 2.1-6.9 [facility] CenterLymphocytes # (Auto)2018-02-15 12:08:00* Test Item Value Reference Range Interpretation Comments Lymphocytes # (Auto) (test code = 33048-7) 1.4 1.0-3.2 [facility] CenterMonocytes # (Auto)2018-02-15 12:08:00* Test Item Value Reference Range Interpretation Comments Monocytes # (Auto) (test code = 742-7) 0.8 0.2-0.8 [facility] CenterEosinophils # (Auto)2018-02-15 12:08:00* Test Item Value Reference Range Interpretation Comments Eosinophils # (Auto) (test code = 711-2) 0.1 0.0-0.4 [facility] CenterBasophils # (Auto)2018-02-15 12:08:00* Test Item Value Reference Range Interpretation Comments Basophils # (Auto) (test code = 704-7) 0.1 0.0-0.1 [facility] CenterAbsolute Immature Granulocyte (auto 2018-02-15 12:08:00* Test Item Value Reference Range Interpretation Comments Absolute Immature Granulocyte (auto (idania t code = Absolute Immature Granulocyte (auto) 0.04 0-0.1 [facility] CenterWhite Blood Fxvns3157-40-82 12:08:00* Test Item Value Reference Range Interpretation Comments White Blood Count (test code = 6690-2) 9.14 4.8-10.8 [facility] CenterRed Blood Pausn0170-68-80 12:08:00* Test Item Value Reference Range Interpretation Comments Red Blood Count (test code = 789-8) 3.97 3.6-5.1 [facility] CenterHemoglobin2018-05-17 12:08:00* Test Item Value Reference Range Interpretation Comments Hemoglobin (test code = 55747-9) 12.3 12.0-16.0 [facility] CenterHematocrit2018-05-17 12:08:00* Test Item Value Reference Range Interpretation Comments Hematocrit (test code = 4544-3) 37.3 34.2-44.1 [facility] CenterMean Corpuscular Qlorym8303-74-37 12:08:00* Test Item Value Reference Range Interpretation Comments Mean Corpuscular Volume (test code = 787-2) 94.0 81-99 [facility] CenterMean Corpuscular Nfmvyrkgkr1258-36-89 12:08:00* Test Item Value Reference Range Interpretation Comments Mean Corpuscular Hemoglobin (test code = 785-6) 31.0 28-32 [facility] CenterMean Corpuscular Hemoglobin Concent 2018-02-15 12:08:00* Test Item Value Reference Range Interpretation Comments Mean Corpuscular Hemoglobin Concent (test code = 786-4) 33.0 31-35 [facility] CenterRed Cell Distribution Pqyke6157-88-26 12:08:00* Test Item Value Reference Range Interpretation Comments Red Cell Distribution Width (test code = 65923-5) 13.1 11.7 -14.4 [facility] CenterPlatelet Djxir7705-58-45 12:08:00* Test Item Value Reference Range Interpretation Comments Platelet Count (test code = 777-3) 333 140-360 [facility] CenterNeutrophils (%) (Auto)2018-02-15 12:08:00 * Test Item Value Reference Range Interpretation Comments Neutrophils (%) (Auto) (test code = 91450-6) 74.8 38.7-80.0 [facility] CenterLymphocytes (%) (Auto)2018-02-15 12:08:00 * Test Item Value Reference Range Interpretation Comments Lymphocytes (%) (Auto) (test code = 736-9) 15.0 18.0-39.1 L [facility] CenterMonocytes (%) (Auto)2018-02-15 12:08:00* Test Item Value Reference Range Interpretation Comments Monocytes (%) (Auto) (test code = 5905-5) 8.3 4.4-11.3 [facility] CenterEosinophils (%) (Auto)2018-02-15 12:08:00 * Test Item Value Reference Range Interpretation Comments Eosinophils (%) (Auto) (test code = 713-8) 0.7 0.0-6.0 [facility] CenterBasophils (%) (Auto)2018-02-15 12:08:00* Test Item Value Reference Range Interpretation Comments Basophils (%) (Auto) (test code = 706-2) 0.8 0.0-1.0 [facility] CenterIM GRANULOCYTES %2018-02-15 12:08:00* Test Item Value Reference Range Interpretation Comments IM GRANULOCYTES % (test code = IM GRANULOCYTES %) 0.4 0.0- 1.0 [facility] CenterNeutrophils # (Auto)2018-02-15 12:08:00* Test Item Value Reference Range Interpretation Comments Neutrophils # (Auto) (test code = 751-8) 6.8 2.1-6.9 [facility] CenterLymphocytes # (Auto)2018-02-15 12:08:00* Test Item Value Reference Range Interpretation Comments Lymphocytes # (Auto) (test code = 13952-4) 1.4 1.0-3.2 [facility] CenterMonocytes # (Auto)2018-02-15 12:08:00* Test Item Value Reference Range Interpretation Comments Monocytes # (Auto) (test code = 742-7) 0.8 0.2-0.8 [facility] CenterEosinophils # (Auto)2018-02-15 12:08:00* Test Item Value Reference Range Interpretation Comments Eosinophils # (Auto) (test code = 711-2) 0.1 0.0-0.4 [facility] CenterBasophils # (Auto)2018-02-15 12:08:00* Test Item Value Reference Range Interpretation Comments Basophils # (Auto) (test code = 704-7) 0.1 0.0-0.1 [facility] CenterAbsolute Immature Granulocyte (auto 2018-02-15 12:08:00* Test Item Value Reference Range Interpretation Comments Absolute Immature Granulocyte (auto (idania t code = Absolute Immature Granulocyte (auto) 0.04 0-0.1 [facility] CenterActivated Clotting Gyll0014-48-59 10:15:00* Test Item Value Reference Range Interpretation Comments Activated Clotting Time (test code = VIR1486) 119 Line pull <170 sec or baselinePeripheral and Neuroradiology <400 secAngioplasty 220 secD[facility] CenterActivated Clotting Hyqc2640-07-12 10:15:00* Test Item Value Reference Range Interpretation Comments Activated Clotting Time (test code = [id number]) 119 Line pull <170 sec or baselinePeripheral and Neuroradiology <400 secAngioplasty 220 secD[facility] CenterActivated Clotting Tctf0903-61-75 10:15:00* Test Item Value Reference Range Interpretation Comments Activated Clotting Time (test code = PPL6237) 119 Line pull <170 sec or baselinePeripheral and Neuroradiology <400 secAngioplasty 220 secD[facility] CenterActivated Clotting Ovlb5950-72-90 10:15:00* Test Item Value Reference Range Interpretation Comments Activated Clotting Time (test code = [id number]) 119 Line pull <170 sec or baselinePeripheral and Neuroradiology <400 secAngioplasty 220 secD[facility] Medical CenterTriglycerides Gidzx0232-86-41 14:04:00* Test Item Value Reference Range Interpretation Comments Triglycerides Level (test code = 2571-8) 182 0-149 H [facility] CenterCholesterol Gadas4909-61-54 14:04:00* Test Item Value Reference Range Interpretation Comments Cholesterol Level (test code = 2093-3) 159 0-199 Less than 200 mg/dL Low Sowt438 - 239 mg/dL Borderline Qiji133 m g/dl and greater High Risk [facility] CenterLDL Jndayeuwzhw0985-03-10 14:04:00* Test Item Value Reference Range Interpretation Comments LDL Cholesterol (test code = 2089-1) 86 60-130 [facility] Muhzuzoulpn3465-39-71 14:04:00* Test Item Value Reference Range Interpretation Comments HDL Cholesterol (test code = 2085-9) 37 40-60 L [facility] CenterCholesterol/HDL Qtegg3945-61-11 14:04:00 * Test Item Value Reference Range Interpretation Comments Cholesterol/HDL Ratio (test code = 9830-1) 4.3 3.0-3.6 H [facility] CenterTriglycerides Zmrvs0768-03-99 14:04:00* Test Item Value Reference Range Interpretation Comments Triglycerides Level (test code = 2571-8) 182 0-149 H [facility] CenterCholesterol Gjrgh4488-69-97 14:04:00* Test Item Value Reference Range Interpretation Comments Cholesterol Level (test code = 2093-3) 159 0-199 Less than 200 mg/dL Low Yazd858 - 239 mg/dL Borderline Atfh764 m g/dl and greater High Risk [facility] CenterLDL Ckoewqfdrez9551-76-48 14:04:00* Test Item Value Reference Range Interpretation Comments LDL Cholesterol (test code = 2089-1) 86 60-130 [facility] Rqfjcmantvc4833-36-09 14:04:00* Test Item Value Reference Range Interpretation Comments HDL Cholesterol (test code = 2085-9) 37 40-60 L [facility] CenterCholesterol/HDL Ihpvu8740-44-14 14:04:00 * Test Item Value Reference Range Interpretation Comments Cholesterol/HDL Ratio (test code = 9830-1) 4.3 3.0-3.6 H [facility] CenterTriglycerides Qktex3972-25-64 14:04:00* Test Item Value Reference Range Interpretation Comments Triglycerides Level (test code = 2571-8) 182 0-149 H [facility] CenterCholesterol Xldgc3369-96-21 14:04:00* Test Item Value Reference Range Interpretation Comments Cholesterol Level (test code = 2093-3) 159 0-199 Less than 200 mg/dL Low Qduw372 - 239 mg/dL Borderline Cepo399 m g/dl and greater High Risk [facility] CenterLDL Cajhedgwrxi6358-57-26 14:04:00* Test Item Value Reference Range Interpretation Comments LDL Cholesterol (test code = 2089-1) 86 60-130 [facility] Avrpobpotub1094-32-25 14:04:00* Test Item Value Reference Range Interpretation Comments HDL Cholesterol (test code = 2085-9) 37 40-60 L [facility] CenterCholesterol/HDL Pgqxq9557-39-54 14:04:00 * Test Item Value Reference Range Interpretation Comments Cholesterol/HDL Ratio (test code = 9830-1) 4.3 3.0-3.6 H [facility] CenterTriglycerides Xphwt9431-17-31 14:04:00* Test Item Value Reference Range Interpretation Comments Triglycerides Level (test code = 2571-8) 182 0-149 H [facility] CenterCholesterol Oatxe3087-92-66 14:04:00* Test Item Value Reference Range Interpretation Comments Cholesterol Level (test code = 2093-3) 159 0-199 Less than 200 mg/dL Low Qgrh940 - 239 mg/dL Borderline Oagv804 m g/dl and greater High Risk [facility] CenterLDL Fmuxtbibbjs0738-63-09 14:04:00* Test Item Value Reference Range Interpretation Comments LDL Cholesterol (test code = 2089-1) 86 60-130 [facility] Elmfmrydhux5085-08-92 14:04:00* Test Item Value Reference Range Interpretation Comments HDL Cholesterol (test code = 2085-9) 37 40-60 L [facility] CenterCholesterol/HDL Epbxn8371-98-21 14:04:00 * Test Item Value Reference Range Interpretation Comments Cholesterol/HDL Ratio (test code = 9830-1) 4.3 3.0-3.6 H [facility] CenterTriglycerides Inogp5618-54-92 15:12:00* Test Item Value Reference Range Interpretation Comments Triglycerides Level (test code = 2571-8) 143 0-149 [facility] CenterCholesterol Qxiva5844-09-17 15:12:00* Test Item Value Reference Range Interpretation Comments Cholesterol Level (test code = 2093-3) 130 0-199 Less than 200 mg/dL Low Mpla174 - 239 mg/dL Borderline Gsys648 m g/dl and greater High Risk [facility] CenterLDL Rjgltyitnlk9912-83-67 15:12:00* Test Item Value Reference Range Interpretation Comments LDL Cholesterol (test code = 2089-1) 69 60-130 [facility] CenterHDL Vfjepmhgwsy8700-66-38 15:12:00* Test Item Value Reference Range Interpretation Comments HDL Cholesterol (test code = 2085-9) 32 40-60 L [facility] CenterCholesterol/HDL Fneaj0236-43-93 15:12:00 * Test Item Value Reference Range Interpretation Comments Cholesterol/HDL Ratio (test code = 9830-1) 4.1 3.0-3.6 [facility] Hwqyl7770-08-38 07:25:00* Test Item Value Reference Range Interpretation Comments Magnesium Level (test code = 60139-8) 1.3 1.3-2.1 [facility] Zpgfn7446-26-01 07:25:00* Test Item Value Reference Range Interpretation Comments Magnesium Level (test code = 67298-0) 1.3 1.3-2.1 [facility] Ghmyl3127-77-85 07:25:00* Test Item Value Reference Range Interpretation Comments Magnesium Level (test code = 11293-2) 1.3 1.3-2.1 [facility] Tghlt3593-80-86 07:25:00* Test Item Value Reference Range Interpretation Comments Magnesium Level (test code = 84313-4) 1.3 1.3-2.1 [facility] Iptez9769-33-77 07:25:00* Test Item Value Reference Range Interpretation Comments Magnesium Level (test code = 78330-7) 1.3 1.3-2.1 [facility] Qhnuv9853-57-95 07:16:00* Test Item Value Reference Range Interpretation Comments Sodium Level (test code = 2951-2) 141 136-145 [facility] CenterPotassium Ftcky2173-22-67 07:16:00* Test Item Value Reference Range Interpretation Comments Potassium Level (test code = 2823-3) 4.3 3.5-5.1 [facility] CenterChloride Tigbl0927-05-21 07:16:00* Test Item Value Reference Range Interpretation Comments Chloride Level (test code = 2075-0) 105 98-107 [facility] CenterCarbon Dioxide Ybvsx4130-31-19 07:16:00* Test Item Value Reference Range Interpretation Comments Carbon Dioxide Level (test code = 2028-9) 27 22-29 [facility] CenterAnion Vym9700-07-30 07:16:00* Test Item Value Reference Range Interpretation Comments Anion Gap (test code = 00100-1) 13.3 8-16 [facility] CenterBlood Urea Sbcqicpj7243-56-75 07:16:00* Test Item Value Reference Range Interpretation Comments Blood Urea Nitrogen (test code = 3094-0) 31 7-26 H [facility] CenterCreatinine2018-05-08 07:16:00* Test Item Value Reference Range Interpretation Comments Creatinine (test code = 2160-0) 1.53 0.57-1.11 H [facility] CenterBUN/Creatinine Ssavb3082-22-71 07:16:00* Test Item Value Reference Range Interpretation Comments BUN/Creatinine Ratio (test code = 3097-3) 20 6-25 [facility] CenterEstimat Glomerular Filtration Rate 2018-02-06 07:16:00* Test Item Value Reference Range Interpretation Comments Estimat Glomerular Filtration Rate (test code = 91296-3) 33 >60 L Ranges were taken from the National Kidney Disease Education Program and the [employer] [facility] literature.Reference ranges:60 or greater: Cuwclp11-97 ( for 3 consecutive months): Chronic kidney disease 15 or less: Kidney failureDallas Regional Medical CenterGlucose Butae9369-77-99 07:16:00* Test Item Value Reference Range Interpretation Comments Glucose Level (test code = NDY2126) 88 74-118 [facility] CenterCalcium Fytgy4525-88-19 07:16:00* Test Item Value Reference Range Interpretation Comments Calcium Level (test code = 61417-0) 9.9 8.4-10.2 [facility] CenterTotal Dujbgawsw5199-23-09 07:16:00* Test Item Value Reference Range Interpretation Comments Total Bilirubin (test code = 1975-2) 0.5 0.2-1.2 [facility] CenterAspartate Amino Transf (AST/SGOT) 2018-02-06 07:16:00* Test Item Value Reference Range Interpretation Comments Aspartate Amino Transf (AST/SGOT) (test code = Aspartate Amino Transf (AST/SGOT)) 14 5-34 [facility] CenterAlanine Aminotransferase (ALT/SGPT) 2018-02-06 07:16:00* Test Item Value Reference Range Interpretation Comments Alanine Aminotransferase (ALT/SGPT) (test code = 1742-6) 8 0-55 [facility] CenterTotal Rhpzaai6550-11-62 07:16:00* Test Item Value Reference Range Interpretation Comments Total Protein (test code = 2885-2) 5.6 6.5-8.1 L [facility] CenterAlbumin2018-05-08 07:16:00* Test Item Value Reference Range Interpretation Comments Albumin (test code = 1751-7) 2.6 3.5-5.0 L [facility] CenterGlobulin2018-05-08 07:16:00* Test Item Value Reference Range Interpretation Comments Globulin (test code = 16655-1) 3.0 2.3-3.5 [facility] CenterAlbumin/Globulin Whunr3683-94-93 07:16:00 * Test Item Value Reference Range Interpretation Comments Albumin/Globulin Ratio (test code = 1759-0) 0.9 0.8-2.0 [facility] CenterAlkaline Qthlwzoiuuj3459-48-07 07:16:00* Test Item Value Reference Range Interpretation Comments Alkaline Phosphatase (test code = 6768-6) 59 40-150 [facility] CenterWhite Blood Uvfot9005-24-71 07:03:00* Test Item Value Reference Range Interpretation Comments White Blood Count (test code = 6690-2) 8.55 4.8-10.8 [facility] CenterRed Blood Pctik1692-48-47 07:03:00* Test Item Value Reference Range Interpretation Comments Red Blood Count (test code = 789-8) 3.86 3.6-5.1 [facility] CenterHemoglobin2018-05-08 07:03:00* Test Item Value Reference Range Interpretation Comments Hemoglobin (test code = 94747-6) 11.9 12.0-16.0 L [facility] CenterHematocrit2018-05-08 07:03:00* Test Item Value Reference Range Interpretation Comments Hematocrit (test code = 4544-3) 37.3 34.2-44.1 [facility] CenterMean Corpuscular Hagqct4008-67-25 07:03:00* Test Item Value Reference Range Interpretation Comments Mean Corpuscular Volume (test code = 787-2) 96.6 81-99 [facility] CenterMean Corpuscular Mrwbqlzifq1769-95-61 07:03:00* Test Item Value Reference Range Interpretation Comments Mean Corpuscular Hemoglobin (test code = 785-6) 30.8 28-32 [facility] CenterMean Corpuscular Hemoglobin Concent 2018-02-06 07:03:00* Test Item Value Reference Range Interpretation Comments Mean Corpuscular Hemoglobin Concent (test code = 786-4) 31.9 31-35 [facility] CenterRed Cell Distribution Xiqai0634-17-09 07:03:00* Test Item Value Reference Range Interpretation Comments Red Cell Distribution Width (test code = 16066-4) 13.4 11.7 -14.4 [facility] CenterPlatelet Xpitr9290-11-81 07:03:00* Test Item Value Reference Range Interpretation Comments Platelet Count (test code = 777-3) 283 140-360 [facility] CenterNeutrophils (%) (Auto)2018-02-06 07:03:00 * Test Item Value Reference Range Interpretation Comments Neutrophils (%) (Auto) (test code = 66329-1) 67.4 38.7-80.0 [facility] CenterLymphocytes (%) (Auto)2018-02-06 07:03:00 * Test Item Value Reference Range Interpretation Comments Lymphocytes (%) (Auto) (test code = 736-9) 20.0 18.0-39.1 [facility] CenterMonocytes (%) (Auto)2018-02-06 07:03:00* Test Item Value Reference Range Interpretation Comments Monocytes (%) (Auto) (test code = 5905-5) 11.1 4.4-11.3 [facility] CenterEosinophils (%) (Auto)2018-02-06 07:03:00 * Test Item Value Reference Range Interpretation Comments Eosinophils (%) (Auto) (test code = 713-8) 0.2 0.0-6.0 [facility] CenterBasophils (%) (Auto)2018-02-06 07:03:00* Test Item Value Reference Range Interpretation Comments Basophils (%) (Auto) (test code = 706-2) 0.7 0.0-1.0 [facility] CenterIM GRANULOCYTES %2018-02-06 07:03:00* Test Item Value Reference Range Interpretation Comments IM GRANULOCYTES % (test code = IM GRANULOCYTES %) 0.6 0.0- 1.0 [facility] CenterNeutrophils # (Auto)2018-02-06 07:03:00* Test Item Value Reference Range Interpretation Comments Neutrophils # (Auto) (test code = 751-8) 5.8 2.1-6.9 [facility] CenterLymphocytes # (Auto)2018-02-06 07:03:00* Test Item Value Reference Range Interpretation Comments Lymphocytes # (Auto) (test code = 05345-1) 1.7 1.0-3.2 [facility] CenterMonocytes # (Auto)2018-02-06 07:03:00* Test Item Value Reference Range Interpretation Comments Monocytes # (Auto) (test code = 742-7) 1.0 0.2-0.8 H [facility] CenterEosinophils # (Auto)2018-02-06 07:03:00* Test Item Value Reference Range Interpretation Comments Eosinophils # (Auto) (test code = 711-2) 0.0 0.0-0.4 [facility] CenterBasophils # (Auto)2018-02-06 07:03:00* Test Item Value Reference Range Interpretation Comments Basophils # (Auto) (test code = 704-7) 0.1 0.0-0.1 [facility] CenterAbsolute Immature Granulocyte (auto 2018-02-06 07:03:00* Test Item Value Reference Range Interpretation Comments Absolute Immature Granulocyte (auto (idania t code = Absolute Immature Granulocyte (auto) 0.05 0-0.1 [facility] CenterUrine LRI4278-54-80 18:48:00* Test Item Value Reference Range Interpretation Comments Urine WBC (test code = 5821-4) NONE 0-5 [facility] CenterUrine SSC4218-38-70 18:48:00* Test Item Value Reference Range Interpretation Comments Urine RBC (test code = 40348-8) NONE 0-5 [facility] CenterUrine Avzobddk6653-36-04 18:48:00* Test Item Value Reference Range Interpretation Comments Urine Bacteria (test code = 08869-0) MODERATE NONE H [facility] CenterUrine Epithelial Tngmk3366-05-88 18:48:00 * Test Item Value Reference Range Interpretation Comments Urine Epithelial Cells (test code = 01773-4) FEW NONE [facility] CenterUrine Nymxx0333-88-62 18:48:00* Test Item Value Reference Range Interpretation Comments Urine Mucus (test code = 8247-9) MODERATE RARE H [facility] CenterUrine VKB8627-20-60 18:48:00* Test Item Value Reference Range Interpretation Comments Urine WBC (test code = 5821-4) NONE 0-5 [facility] CenterUrine MOA5392-79-75 18:48:00* Test Item Value Reference Range Interpretation Comments Urine RBC (test code = 86647-7) NONE 0-5 [facility] Tzinsohn0814-73-11 18:48:00* Test Item Value Reference Range Interpretation Comments Urine Bacteria (test code = 33717-7) MODERATE NONE H [facility] CenterUrine Epithelial Llbqb0321-09-18 18:48:00 * Test Item Value Reference Range Interpretation Comments Urine Epithelial Cells (test code = 88292-9) FEW NONE [facility] Vlxyb7702-02-12 18:48:00* Test Item Value Reference Range Interpretation Comments Urine Mucus (test code = 8247-9) MODERATE RARE H [facility] XVP9385-10-82 18:48:00* Test Item Value Reference Range Interpretation Comments Urine WBC (test code = 5821-4) NONE 0-5 [facility] GWM1242-67-45 18:48:00* Test Item Value Reference Range Interpretation Comments Urine RBC (test code = 62510-1) NONE 0-5 [facility] Evlpboyf4104-09-16 18:48:00* Test Item Value Reference Range Interpretation Comments Urine Bacteria (test code = 26000-6) MODERATE NONE H [facility] Epithelial Rgarp4113-92-56 18:48:00 * Test Item Value Reference Range Interpretation Comments Urine Epithelial Cells (test code = 53142-0) FEW NONE [facility] Xenxj7215-58-48 18:48:00* Test Item Value Reference Range Interpretation Comments Urine Mucus (test code = 8247-9) MODERATE RARE H [facility] MXU8090-92-18 18:48:00* Test Item Value Reference Range Interpretation Comments Urine WBC (test code = 5821-4) NONE 0-5 [facility] QYI9412-94-63 18:48:00* Test Item Value Reference Range Interpretation Comments Urine RBC (test code = 39977-3) NONE 0-5 [facility] Dpxwroje8661-59-67 18:48:00* Test Item Value Reference Range Interpretation Comments Urine Bacteria (test code = 12243-6) MODERATE NONE H [facility] CenterUrine Epithelial Ailri2359-66-79 18:48:00 * Test Item Value Reference Range Interpretation Comments Urine Epithelial Cells (test code = 43487-0) FEW NONE [facility] CenterU[facility] Iyzrf6398-73-36 18:48:00* Test Item Value Reference Range Interpretation Comments Urine Mucus (test code = 8247-9) MODERATE RARE H [facility] CenterUrine JHN8465-47-28 18:48:00* Test Item Value Reference Range Interpretation Comments Urine WBC (test code = 5821-4) NONE 0-5 [facility] CenterU[facility] ANT1146-43-16 18:48:00* Test Item Value Reference Range Interpretation Comments Urine RBC (test code = 24618-9) NONE 0-5 [facility] Rdjvxuga4697-02-50 18:48:00* Test Item Value Reference Range Interpretation Comments Urine Bacteria (test code = 93256-7) MODERATE NONE H [facility] CenterUrine Epithelial Didwy7072-38-49 18:48:00 * Test Item Value Reference Range Interpretation Comments Urine Epithelial Cells (test code = 45051-6) FEW NONE [facility] CenterU[facility] Dfpuu7239-45-58 18:48:00* Test Item Value Reference Range Interpretation Comments Urine Mucus (test code = 8247-9) MODERATE RARE H [facility] CenterUrine Tymqy1590-13-85 18:37:00* Test Item Value Reference Range Interpretation Comments Urine Color (test code = 5778-6) YELLOW YELLOW [facility] CenterUrine Coskexo2260-07-30 18:37:00* Test Item Value Reference Range Interpretation Comments Urine Clarity (test code = 22816-6) SL CLOUDY CLEAR [facility] CenterUrine Specific Kyvxvdq4815-89-07 18:37:00 * Test Item Value Reference Range Interpretation Comments Urine Specific [place] (test code = 5811-5) 1.025 1.010-1.02 5 [facility] CenterU[facility] pF9617-09-68 18:37:00* Test Item Value Reference Range Interpretation Comments Urine pH (test code = 16808-3) 5 5-7 [facility] CenterU[facility] Leukocyte Rnohwizy9899-22-86 18:37:00* Test Item Value Reference Range Interpretation Comments Urine Leukocyte Esterase (test code = 5799-2) NEGATIVE NEGATIVE [facility] CenterU[facility] Reqwpsc3855-27-27 18:37:00* Test Item Value Reference Range Interpretation Comments Urine Nitrite (test code = 00247-3) NEGATIVE NEGATIVE [facility] CenterU[facility] Hwngwtd8188-07-13 18:37:00* Test Item Value Reference Range Interpretation Comments Urine Protein (test code = 5804-0) NEGATIVE NEGATIVE [facility] CenterUrine Glucose (UA)2018-02-05 18:37:00* Test Item Value Reference Range Interpretation Comments Urine Glucose (UA) (test code = 2349-9) NEGATIVE NEGATIVE [facility] CenterU[facility] Jqvqnkl2808-98-68 18:37:00* Test Item Value Reference Range Interpretation Comments Urine Ketones (test code = 67384-5) NEGATIVE NEGATIVE [facility] CenterU[facility] Hmksrzyihdis6383-01-01 18:37:00* Test Item Value Reference Range Interpretation Comments Urine Urobilinogen (test code = 34377-2) 0.2 0.2-1 [facility] CenterU[facility] Dxlkeeuod8611-67-51 18:37:00* Test Item Value Reference Range Interpretation Comments Urine Bilirubin (test code = 1978-6) NEGATIVE NEGATIVE [facility] CenterU[facility] Fjxmo1512-43-87 18:37:00* Test Item Value Reference Range Interpretation Comments Urine Blood (test code = 87627-1) NEGATIVE NEGATIVE [facility] CenterU[facility] Zagln5883-14-67 18:37:00* Test Item Value Reference Range Interpretation Comments Urine Color (test code = 5778-6) YELLOW YELLOW [facility] CenterU[facility] Jvbtqza1795-22-43 18:37:00* Test Item Value Reference Range Interpretation Comments Urine Clarity (test code = 15769-1) SL CLOUDY CLEAR [facility] CenterUrine Specific Uddbhyz4504-76-81 18:37:00 * Test Item Value Reference Range Interpretation Comments Urine Specific [place] (test code = 5811-5) 1.025 1.010-1.02 5 [facility] CenterU[facility] bE4322-29-71 18:37:00* Test Item Value Reference Range Interpretation Comments Urine pH (test code = 44650-8) 5 5-7 [facility] CenterU[facility] Leukocyte Lcegevrx1967-51-43 18:37:00* Test Item Value Reference Range Interpretation Comments Urine Leukocyte Esterase (test code = 5799-2) NEGATIVE NEGATIVE [facility] CenterU[facility] Gjrkjuv9316-25-82 18:37:00* Test Item Value Reference Range Interpretation Comments Urine Nitrite (test code = 84629-1) NEGATIVE NEGATIVE [facility] CenterU[facility] Abdgdfd5560-64-16 18:37:00* Test Item Value Reference Range Interpretation Comments Urine Protein (test code = 5804-0) NEGATIVE NEGATIVE [facility] CenterU[facility] Glucose (UA)2018-02-05 18:37:00* Test Item Value Reference Range Interpretation Comments Urine Glucose (UA) (test code = 2349-9) NEGATIVE NEGATIVE [facility] CenterU[facility] Nmfconw3115-10-73 18:37:00* Test Item Value Reference Range Interpretation Comments Urine Ketones (test code = 78107-4) NEGATIVE NEGATIVE [facility] CenterU[facility] Jplhrskftrpk7516-11-00 18:37:00* Test Item Value Reference Range Interpretation Comments Urine Urobilinogen (test code = 26008-4) 0.2 0.2-1 [facility] CenterU[facility] Hmudyfvss1286-38-36 18:37:00* Test Item Value Reference Range Interpretation Comments Urine Bilirubin (test code = 1978-6) NEGATIVE NEGATIVE [facility] CenterU[facility] Iivou7305-19-65 18:37:00* Test Item Value Reference Range Interpretation Comments Urine Blood (test code = 09475-7) NEGATIVE NEGATIVE [facility] CenterU[facility] Daxlp7575-57-56 18:37:00* Test Item Value Reference Range Interpretation Comments Urine Color (test code = 5778-6) YELLOW YELLOW [facility] CenterU[facility] Ievgwrf0607-84-30 18:37:00* Test Item Value Reference Range Interpretation Comments Urine Clarity (test code = 06081-8) SL CLOUDY CLEAR [facility] CenterUrine Specific Gpbfjfo2437-52-94 18:37:00 * Test Item Value Reference Range Interpretation Comments Urine Specific [place] (test code = 5811-5) 1.025 1.010-1.02 5 [facility] CenterU[facility] xR3805-72-38 18:37:00* Test Item Value Reference Range Interpretation Comments Urine pH (test code = 31297-4) 5 5-7 [facility] CenterU[facility] Leukocyte Yvtqdvmk9524-69-43 18:37:00* Test Item Value Reference Range Interpretation Comments Urine Leukocyte Esterase (test code = 5799-2) NEGATIVE NEGATIVE [facility] CenterU[facility] Oguxkln6256-82-49 18:37:00* Test Item Value Reference Range Interpretation Comments Urine Nitrite (test code = 75342-1) NEGATIVE NEGATIVE [facility] Cilqrch5905-54-91 18:37:00* Test Item Value Reference Range Interpretation Comments Urine Protein (test code = 5804-0) NEGATIVE NEGATIVE [facility] CenterU[facility] Glucose (UA)2018-02-05 18:37:00* Test Item Value Reference Range Interpretation Comments Urine Glucose (UA) (test code = 2349-9) NEGATIVE NEGATIVE [facility] CenterU[facility] Wvissbr2487-27-22 18:37:00* Test Item Value Reference Range Interpretation Comments Urine Ketones (test code = 58858-9) NEGATIVE NEGATIVE [facility] Center[facility] Gexroknpzltk7103-60-21 18:37:00* Test Item Value Reference Range Interpretation Comments Urine Urobilinogen (test code = 74166-4) 0.2 0.2-1 [facility] Rafnpkgql9054-48-29 18:37:00* Test Item Value Reference Range Interpretation Comments Urine Bilirubin (test code = 1978-6) NEGATIVE NEGATIVE [facility] Fleed7504-95-08 18:37:00* Test Item Value Reference Range Interpretation Comments Urine Blood (test code = 89596-2) NEGATIVE NEGATIVE [facility] Gvgjk4199-46-79 18:37:00* Test Item Value Reference Range Interpretation Comments Urine Color (test code = 5778-6) YELLOW YELLOW [facility] Fkyfimk1577-80-89 18:37:00* Test Item Value Reference Range Interpretation Comments Urine Clarity (test code = 80664-6) SL CLOUDY CLEAR [facility] CenterU[facility] Specific Znxijhj0192-91-24 18:37:00 * Test Item Value Reference Range Interpretation Comments Urine Specific [place] (test code = 5811-5) 1.025 1.010-1.02 5 [facility] sE6752-12-31 18:37:00* Test Item Value Reference Range Interpretation Comments Urine pH (test code = 71546-0) 5 5-7 [facility] Leukocyte Vnhavvju7831-06-44 18:37:00* Test Item Value Reference Range Interpretation Comments Urine Leukocyte Esterase (test code = 5799-2) NEGATIVE NEGATIVE [facility] Ofnlbzf1445-81-30 18:37:00* Test Item Value Reference Range Interpretation Comments Urine Nitrite (test code = 88205-0) NEGATIVE NEGATIVE [facility] Mqxghcf3730-45-66 18:37:00* Test Item Value Reference Range Interpretation Comments Urine Protein (test code = 5804-0) NEGATIVE NEGATIVE [facility] Glucose (UA)2018-02-05 18:37:00* Test Item Value Reference Range Interpretation Comments Urine Glucose (UA) (test code = 2349-9) NEGATIVE NEGATIVE [facility] Pfhwwka2280-61-07 18:37:00* Test Item Value Reference Range Interpretation Comments Urine Ketones (test code = 13648-0) NEGATIVE NEGATIVE [facility] Yqyvwglwkrxz0191-40-42 18:37:00* Test Item Value Reference Range Interpretation Comments Urine Urobilinogen (test code = 20518-3) 0.2 0.2-1 [facility] Sgqqzpahp0133-46-77 18:37:00* Test Item Value Reference Range Interpretation Comments Urine Bilirubin (test code = 1978-6) NEGATIVE NEGATIVE [facility] Yxuor0078-27-62 18:37:00* Test Item Value Reference Range Interpretation Comments Urine Blood (test code = 35291-9) NEGATIVE NEGATIVE [facility] Nahgw0130-25-91 18:37:00* Test Item Value Reference Range Interpretation Comments Urine Color (test code = 5778-6) YELLOW YELLOW [facility] Cijsogi8743-85-78 18:37:00* Test Item Value Reference Range Interpretation Comments Urine Clarity (test code = 22107-9) SL CLOUDY CLEAR [facility] CenterU[facility] Specific Rkdzztu4066-14-97 18:37:00 * Test Item Value Reference Range Interpretation Comments Urine Specific [place] (test code = 5811-5) 1.025 1.010-1.02 5 [facility] Center[facility] mB6406-31-30 18:37:00* Test Item Value Reference Range Interpretation Comments Urine pH (test code = 00360-5) 5 5-7 [facility] Leukocyte Fsiuzqpe3291-99-66 18:37:00* Test Item Value Reference Range Interpretation Comments Urine Leukocyte Esterase (test code = 5799-2) NEGATIVE NEGATIVE [facility] Yyidhng0421-42-27 18:37:00* Test Item Value Reference Range Interpretation Comments Urine Nitrite (test code = 57845-1) NEGATIVE NEGATIVE [facility] Ceihabu0109-20-44 18:37:00* Test Item Value Reference Range Interpretation Comments Urine Protein (test code = 5804-0) NEGATIVE NEGATIVE [facility] CenterU[facility] Glucose (UA)2018-02-05 18:37:00* Test Item Value Reference Range Interpretation Comments Urine Glucose (UA) (test code = 2349-9) NEGATIVE NEGATIVE [facility] Qokfvbj3660-61-80 18:37:00* Test Item Value Reference Range Interpretation Comments Urine Ketones (test code = 96531-3) NEGATIVE NEGATIVE [facility] Vjmchdmlhoqi5299-75-34 18:37:00* Test Item Value Reference Range Interpretation Comments Urine Urobilinogen (test code = 98143-1) 0.2 0.2-1 [facility] Avfhxafis6848-58-79 18:37:00* Test Item Value Reference Range Interpretation Comments Urine Bilirubin (test code = 1978-6) NEGATIVE NEGATIVE [facility] CenterU[facility] Wxmlo0824-53-30 18:37:00* Test Item Value Reference Range Interpretation Comments Urine Blood (test code = 88914-0) NEGATIVE NEGATIVE [facility] CenterCreatine Kinase YF8115-65-71 13:06:00* Test Item Value Reference Range Interpretation Comments Creatine Kinase MB (test code = 21045-1) 1.40 0-5.0 [facility] CenterTroponin E6555-38-15 13:06:00* Test Item Value Reference Range Interpretation Comments Troponin I (test code = MOH9978) -0.001 0-0.300 [facility] CenterCreatine Jbbcuj3637-39-92 13:02:00* Test Item Value Reference Range Interpretation Comments Creatine Kinase (test code = 2157-6) 39 29-168 [facility] CenterProthrombin Wdnk0976-25-21 12:53:00* Test Item Value Reference Range Interpretation Comments Prothrombin Time (test code = 5902-2) 12.4 11.9-14.5 [facility] CenterProthromb Time International Ratio 2018-02-05 12:53:00* Test Item Value Reference Range Interpretation Comments Prothromb Time International Ratio (test code = 6301-6) 1.00 Oral Anticoagulant Therapy INR Values:1. Low Intensity Therapy 1.5 - 2.02 . Moderate Intensity Therapy 2.0 - 3.03. High Intensity Therapy(1) 2.5 - 3. 54. High Intensity Therapy(2) 3.0 - 4.05. Panic Value INR > 5.0 [facility] CenterD-Dimer Quantitative (PE/DVT)2017-05-07 14:22:00* Test Item Value Reference Range Interpretation Comments D-Dimer Quantitative (PE/DVT) (test code = 26005-9) 1.82 0. 00-0.45 H As with all in vitro diagnostic tests, the test results should be interpreted by the physician in conjunction with clinical findings and other test results.Test results are reported in NEW D-dimer units(ug/mLFEU).[facility] CenterD-Dimer Quantitative (PE/DVT)2017-05-07 14:22:00* Test Item Value Reference Range Interpretation Comments D-Dimer Quantitative (PE/DVT) (test code = 52825-7) 1.82 0. 00-0.45 H As with all in vitro diagnostic tests, the test results should be interpreted by the physician in conjunction with clinical findings and other test results.Test results are reported in NEW D-dimer units(ug/mLFEU).[facility] CenterD-Dimer Quantitative (PE/DVT)2017-05-07 14:22:00* Test Item Value Reference Range Interpretation Comments D-Dimer Quantitative (PE/DVT) (test code = 75144-5) 1.82 0. 00-0.45 H As with all in vitro diagnostic tests, the test results should be interpreted by the physician in conjunction with clinical findings and other test results.Test results are reported in NEW D-dimer units(ug/mLFEU).[facility] CenterD-Dimer Quantitative (PE/DVT)2017-05-07 14:22:00* Test Item Value Reference Range Interpretation Comments D-Dimer Quantitative (PE/DVT) (test code = 60614-5) 1.82 0. 00-0.45 H As with all in vitro diagnostic tests, the test results should be interpreted by the physician in conjunction with clinical findings and other test results.Test results are reported in NEW D-dimer units(ug/mLFEU).[facility] Azhgj3807-34-26 14:20:00* Test Item Value Reference Range Interpretation Comments Sodium Level (test code = 2951-2) 140 136-145 [facility] CenterPotassium Zorqd8079-73-10 14:20:00* Test Item Value Reference Range Interpretation Comments Potassium Level (test code = 2823-3) 3.9 3.5-5.1 [facility] CenterChloride Zgxxu4811-68-89 14:20:00* Test Item Value Reference Range Interpretation Comments Chloride Level (test code = 2075-0) 104 98-107 [facility] CenterCarbon Dioxide Itqfg2954-68-42 14:20:00* Test Item Value Reference Range Interpretation Comments Carbon Dioxide Level (test code = 2028-9) 24 22-29 [facility] CenterAnion Jfn6121-25-66 14:20:00* Test Item Value Reference Range Interpretation Comments Anion Gap (test code = 99429-2) 15.9 8-16 [facility] CenterBlood Urea Bdkugzoe4069-08-43 14:20:00* Test Item Value Reference Range Interpretation Comments Blood Urea Nitrogen (test code = 3094-0) 25 7-26 [facility] CenterCreatinine2017-08-06 14:20:00* Test Item Value Reference Range Interpretation Comments Creatinine (test code = 2160-0) 1.87 0.57-1.11 H [facility] CenterBUN/Creatinine Axjre5807-85-63 14:20:00* Test Item Value Reference Range Interpretation Comments BUN/Creatinine Ratio (test code = 3097-3) 13 6-25 [facility] CenterEstimat Glomerular Filtration Rate 2017-05-07 14:20:00* Test Item Value Reference Range Interpretation Comments Estimat Glomerular Filtration Rate (test code = 52893-7) 26 >60 L Ranges were taken from the National Kidney Disease Education Program and the [facility] [employer] literature.Reference ranges:60 or greater: Pouvuc59-81 ( for 3 consecutive months): Chronic kidney disease 15 or less: Kidney failureD[facility] Medical CenterGlucose Kosun9387-91-09 14:20:00* Test Item Value Reference Range Interpretation Comments Glucose Level (test code = RYG5328) 120 74-118 H [facility] CenterCalcium Ivgbd1346-22-72 14:20:00* Test Item Value Reference Range Interpretation Comments Calcium Level (test code = 84549-8) 9.7 8.4-10.2 [facility] CenterTotal Kivbtigie8937-92-48 14:20:00* Test Item Value Reference Range Interpretation Comments Total Bilirubin (test code = 1975-2) 0.5 0.2-1.2 [facility] CenterAspartate Amino Transf (AST/SGOT) 2017-05-07 14:20:00* Test Item Value Reference Range Interpretation Comments Aspartate Amino Transf (AST/SGOT) (test code = Aspartate Amino Transf (AST/SGOT)) 19 5-34 [facility] CenterAlanine Aminotransferase (ALT/SGPT) 2017-05-07 14:20:00* Test Item Value Reference Range Interpretation Comments Alanine Aminotransferase (ALT/SGPT) (test code = 1742-6) 17 0-55 [facility] CenterTotal Gtjbzvh7585-62-98 14:20:00* Test Item Value Reference Range Interpretation Comments Total Protein (test code = 2885-2) 6.7 6.5-8.1 [facility] CenterAlbumin2017-08-06 14:20:00* Test Item Value Reference Range Interpretation Comments Albumin (test code = 1751-7) 3.3 3.5-5.0 L [facility] CenterGlobulin2017-08-06 14:20:00* Test Item Value Reference Range Interpretation Comments Globulin (test code = 41758-2) 3.4 2.3-3.5 [facility] CenterAlbumin/Globulin Ppjzc8899-39-44 14:20:00 * Test Item Value Reference Range Interpretation Comments Albumin/Globulin Ratio (test code = 1759-0) 1.0 0.8-2.0 [facility] CenterAlkaline Akcennvwhiu4228-25-63 14:20:00* Test Item Value Reference Range Interpretation Comments Alkaline Phosphatase (test code = 6768-6) 64 40-150 [facility]odium Cnlby8535-77-93 14:20:00* Test Item Value Reference Range Interpretation Comments Sodium Level (test code = 2951-2) 140 136-145 [facility] CenterPotassium Agjwj6682-71-19 14:20:00* Test Item Value Reference Range Interpretation Comments Potassium Level (test code = 2823-3) 3.9 3.5-5.1 [facility] CenterChloride Ukbye7167-42-98 14:20:00* Test Item Value Reference Range Interpretation Comments Chloride Level (test code = 2075-0) 104 98-107 [facility] CenterCarbon Dioxide Vkcfu2002-81-34 14:20:00* Test Item Value Reference Range Interpretation Comments Carbon Dioxide Level (test code = 2028-9) 24 22-29 [facility] CenterAnion Lyq0109-80-38 14:20:00* Test Item Value Reference Range Interpretation Comments Anion Gap (test code = 67182-9) 15.9 8-16 [facility] CenterBlood Urea Byvhprax0520-11-16 14:20:00* Test Item Value Reference Range Interpretation Comments Blood Urea Nitrogen (test code = 3094-0) 25 7-26 [facility] CenterCreatinine2017-08-06 14:20:00* Test Item Value Reference Range Interpretation Comments Creatinine (test code = 2160-0) 1.87 0.57-1.11 H [facility] CenterBUN/Creatinine Gkrst6702-91-94 14:20:00* Test Item Value Reference Range Interpretation Comments BUN/Creatinine Ratio (test code = 3097-3) 13 6-25 [facility] CenterEstimat Glomerular Filtration Rate 2017-05-07 14:20:00* Test Item Value Reference Range Interpretation Comments Estimat Glomerular Filtration Rate (test code = 82225-3) 26 >60 L Ranges were taken from the National Kidney Disease Education Program and the [facility] [employer] literature.Reference ranges:60 or greater: Gehmyu93-02 ( for 3 consecutive months): Chronic kidney disease 15 or less: Kidney failureD[facility] Medical CenterGlucose Focua4032-25-88 14:20:00* Test Item Value Reference Range Interpretation Comments Glucose Level (test code = GBN8285) 120 74-118 H [facility] CenterCalcium Kxfld6560-52-16 14:20:00* Test Item Value Reference Range Interpretation Comments Calcium Level (test code = 81720-5) 9.7 8.4-10.2 [facility] CenterTotal Kpzhdujpa3564-95-37 14:20:00* Test Item Value Reference Range Interpretation Comments Total Bilirubin (test code = 1975-2) 0.5 0.2-1.2 [facility] CenterAspartate Amino Transf (AST/SGOT) 2017-05-07 14:20:00* Test Item Value Reference Range Interpretation Comments Aspartate Amino Transf (AST/SGOT) (test code = Aspartate Amino Transf (AST/SGOT)) 19 5-34 [facility] CenterAlanine Aminotransferase (ALT/SGPT) 2017-05-07 14:20:00* Test Item Value Reference Range Interpretation Comments Alanine Aminotransferase (ALT/SGPT) (test code = 1742-6) 17 0-55 [facility] CenterTotal Skvpgpo2258-39-88 14:20:00* Test Item Value Reference Range Interpretation Comments Total Protein (test code = 2885-2) 6.7 6.5-8.1 [facility] CenterAlbumin2017-08-06 14:20:00* Test Item Value Reference Range Interpretation Comments Albumin (test code = 1751-7) 3.3 3.5-5.0 L [facility] CenterGlobulin2017-08-06 14:20:00* Test Item Value Reference Range Interpretation Comments Globulin (test code = 88753-4) 3.4 2.3-3.5 [facility] CenterAlbumin/Globulin Idiqe7866-06-14 14:20:00 * Test Item Value Reference Range Interpretation Comments Albumin/Globulin Ratio (test code = 1759-0) 1.0 0.8-2.0 [facility] CenterAlkaline Plnlrdxspyg4170-65-72 14:20:00* Test Item Value Reference Range Interpretation Comments Alkaline Phosphatase (test code = 6768-6) 64 40-150 [facility] CenterActivated Partial Thromboplast Time 2017-05-07 14:12:00* Test Item Value Reference Range Interpretation Comments Activated Partial Thromboplast Time (test code = 92289-5) 19.3 23.8-35.5 L [facility] CenterActivated Partial Thromboplast Time 2017-05-07 14:12:00* Test Item Value Reference Range Interpretation Comments Activated Partial Thromboplast Time (test code = 61291-2) 19.3 23.8-35.5 L [facility] CenterActivated Partial Thromboplast Time 2017-05-07 14:12:00* Test Item Value Reference Range Interpretation Comments Activated Partial Thromboplast Time (test code = 55916-6) 19.3 23.8-35.5 L [facility] CenterProthrombin Amyo5549-48-57 14:11:00* Test Item Value Reference Range Interpretation Comments Prothrombin Time (test code = 5902-2) 12.2 11.9-14.5 [facility] CenterProthromb Time International Ratio 2017-05-07 14:11:00* Test Item Value Reference Range Interpretation Comments Prothromb Time International Ratio (test code = 6301-6) 0.86 Oral Anticoagulant Therapy INR Values:1. Low Intensity Therapy 1.5 - 2.02 . Moderate Intensity Therapy 2.0 - 3.03. High Intensity Therapy(1) 2.5 - 3. 54. High Intensity Therapy(2) 3.0 - 4.05. Panic Value INR > 5.0 [facility] CenterProthrlifecare hospital of [facility] Ffbd7734-67-47 14:11:00* Test Item Value Reference Range Interpretation Comments Prothrombin Time (test code = 5902-2) 12.2 11.9-14.5 [facility] CenterProthromb Time International Ratio 2017-05-07 14:11:00* Test Item Value Reference Range Interpretation Comments Prothromb Time International Ratio (test code = 6301-6) 0.86 Oral Anticoagulant Therapy INR Values:1. Low Intensity Therapy 1.5 - 2.02 . Moderate Intensity Therapy 2.0 - 3.03. High Intensity Therapy(1) 2.5 - 3. 54. High Intensity Therapy(2) 3.0 - 4.05. Panic Value INR > 5.0 [facility] CenterWhite Blood Csaym9008-82-92 14:05:00* Test Item Value Reference Range Interpretation Comments White Blood Count (test code = 6690-2) 10.35 4.8-10.8 [facility] CenterRed Blood Iqxgb5002-44-28 14:05:00* Test Item Value Reference Range Interpretation Comments Red Blood Count (test code = 789-8) 3.98 3.6-5.1 [facility] CenterHemoglobin2017-08-06 14:05:00* Test Item Value Reference Range Interpretation Comments Hemoglobin (test code = 29099-1) 12.4 12.0-16.0 [facility] CenterHematocrit2017-08-06 14:05:00* Test Item Value Reference Range Interpretation Comments Hematocrit (test code = 4544-3) 38.2 34.2-44.1 [facility] CenterMean Corpuscular Vprvty7491-68-91 14:05:00* Test Item Value Reference Range Interpretation Comments Mean Corpuscular Volume (test code = 787-2) 96.0 81-99 [facility] CenterMean Corpuscular Agfffxklps3903-88-57 14:05:00* Test Item Value Reference Range Interpretation Comments Mean Corpuscular Hemoglobin (test code = 785-6) 31.2 28-32 [facility] CenterMean Corpuscular Hemoglobin Concent 2017-05-07 14:05:00* Test Item Value Reference Range Interpretation Comments Mean Corpuscular Hemoglobin Concent (test code = 786-4) 32.5 31-35 [facility] CenterRed Cell Distribution Rkvee0088-19-74 14:05:00* Test Item Value Reference Range Interpretation Comments Red Cell Distribution Width (test code = 04327-4) 13.3 11.7 -14.4 [facility] CenterPlatelet Ckhww1752-98-03 14:05:00* Test Item Value Reference Range Interpretation Comments Platelet Count (test code = 777-3) 340 140-360 [facility] CenterNeutrophils (%) (Auto)2017-05-07 14:05:00 * Test Item Value Reference Range Interpretation Comments Neutrophils (%) (Auto) (test code = 70881-4) 72.5 38.7-80.0 [facility] CenterLymphocytes (%) (Auto)2017-05-07 14:05:00 * Test Item Value Reference Range Interpretation Comments Lymphocytes (%) (Auto) (test code = 736-9) 17.9 18.0-39.1 L [facility] CenterMonocytes (%) (Auto)2017-05-07 14:05:00* Test Item Value Reference Range Interpretation Comments Monocytes (%) (Auto) (test code = 5905-5) 7.6 4.4-11.3 [facility] CenterEosinophils (%) (Auto)2017-05-07 14:05:00 * Test Item Value Reference Range Interpretation Comments Eosinophils (%) (Auto) (test code = 713-8) 0.2 0.0-6.0 [facility] CenterBasophils (%) (Auto)2017-05-07 14:05:00* Test Item Value Reference Range Interpretation Comments Basophils (%) (Auto) (test code = 706-2) 0.8 0.0-1.0 [facility] CenterIM GRANULOCYTES %2017-05-07 14:05:00* Test Item Value Reference Range Interpretation Comments IM GRANULOCYTES % (test code = IM GRANULOCYTES %) 1.0 0.0- 1.0 [facility] CenterNeutrophils # (Auto)2017-05-07 14:05:00* Test Item Value Reference Range Interpretation Comments Neutrophils # (Auto) (test code = 751-8) 7.5 2.1-6.9 H [facility] CenterLymphocytes # (Auto)2017-05-07 14:05:00* Test Item Value Reference Range Interpretation Comments Lymphocytes # (Auto) (test code = 47665-0) 1.9 1.0-3.2 [facility] CenterMonocytes # (Auto)2017-05-07 14:05:00* Test Item Value Reference Range Interpretation Comments Monocytes # (Auto) (test code = 742-7) 0.8 0.2-0.8 [facility] CenterEosinophils # (Auto)2017-05-07 14:05:00* Test Item Value Reference Range Interpretation Comments Eosinophils # (Auto) (test code = 711-2) 0.0 0.0-0.4 [facility] CenterBasophils # (Auto)2017-05-07 14:05:00* Test Item Value Reference Range Interpretation Comments Basophils # (Auto) (test code = 704-7) 0.1 0.0-0.1 [facility] CenterAbsolute Immature Granulocyte (auto 2017-05-07 14:05:00* Test Item Value Reference Range Interpretation Comments Absolute Immature Granulocyte (auto (idania t code = Absolute Immature Granulocyte (auto) 0.10 0-0.1 [facility] CenterWhite Blood Fdjbr8905-60-63 14:05:00* Test Item Value Reference Range Interpretation Comments White Blood Count (test code = 6690-2) 10.35 4.8-10.8 [facility] CenterRed Blood Wquus7519-80-87 14:05:00* Test Item Value Reference Range Interpretation Comments Red Blood Count (test code = 789-8) 3.98 3.6-5.1 [facility] CenterHemoglobin2017-08-06 14:05:00* Test Item Value Reference Range Interpretation Comments Hemoglobin (test code = 89059-1) 12.4 12.0-16.0 [facility] CenterHematocrit2017-08-06 14:05:00* Test Item Value Reference Range Interpretation Comments Hematocrit (test code = 4544-3) 38.2 34.2-44.1 [facility] CenterMean Corpuscular Kqmqui9521-90-64 14:05:00* Test Item Value Reference Range Interpretation Comments Mean Corpuscular Volume (test code = 787-2) 96.0 81-99 [facility] CenterMean Corpuscular Agcvpguclw4684-26-67 14:05:00* Test Item Value Reference Range Interpretation Comments Mean Corpuscular Hemoglobin (test code = 785-6) 31.2 28-32 [facility] CenterMean Corpuscular Hemoglobin Concent 2017-05-07 14:05:00* Test Item Value Reference Range Interpretation Comments Mean Corpuscular Hemoglobin Concent (test code = 786-4) 32.5 31-35 [facility] CenterRed Cell Distribution Dqpps7550-17-51 14:05:00* Test Item Value Reference Range Interpretation Comments Red Cell Distribution Width (test code = 61555-5) 13.3 11.7 -14.4 [facility] CenterPlatelet Xmwvk2048-33-42 14:05:00* Test Item Value Reference Range Interpretation Comments Platelet Count (test code = 777-3) 340 140-360 [facility] CenterNeutrophils (%) (Auto)2017-05-07 14:05:00 * Test Item Value Reference Range Interpretation Comments Neutrophils (%) (Auto) (test code = 25899-5) 72.5 38.7-80.0 [facility] CenterLymphocytes (%) (Auto)2017-05-07 14:05:00 * Test Item Value Reference Range Interpretation Comments Lymphocytes (%) (Auto) (test code = 736-9) 17.9 18.0-39.1 L [facility] CenterMonocytes (%) (Auto)2017-05-07 14:05:00* Test Item Value Reference Range Interpretation Comments Monocytes (%) (Auto) (test code = 5905-5) 7.6 4.4-11.3 [facility] CenterEosinophils (%) (Auto)2017-05-07 14:05:00 * Test Item Value Reference Range Interpretation Comments Eosinophils (%) (Auto) (test code = 713-8) 0.2 0.0-6.0 [facility] CenterBasophils (%) (Auto)2017-05-07 14:05:00* Test Item Value Reference Range Interpretation Comments Basophils (%) (Auto) (test code = 706-2) 0.8 0.0-1.0 [facility] CenterIM GRANULOCYTES %2017-05-07 14:05:00* Test Item Value Reference Range Interpretation Comments IM GRANULOCYTES % (test code = IM GRANULOCYTES %) 1.0 0.0- 1.0 [facility] CenterNeutrophils # (Auto)2017-05-07 14:05:00* Test Item Value Reference Range Interpretation Comments Neutrophils # (Auto) (test code = 751-8) 7.5 2.1-6.9 [facility]Auto)2017-05-07 14:05:00* Test Item Value Reference Range Interpretation Comments Lymphocytes # (Auto) (test code = 10178-4) 1.9 1.0-3.2 [facility])2017-05-07 14:05:00* Test Item Value Reference Range Interpretation Comments Monocytes # (Auto) (test code = 742-7) 0.8 0.2-0.8 [facility] ([facility])2017-05-07 14:05:00* Test Item Value Reference Range Interpretation Comments Eosinophils # (Auto) (test code = 711-2) 0.0 0.0-0.4 [facility] ([facility])2017-05-07 14:05:00* Test Item Value Reference Range Interpretation Comments Basophils # (Auto) (test code = 704-7) 0.1 0.0-0.1 [facility] Granul[facility] (auto 2017-05-07 14:05:00* Test Item Value Reference Range Interpretation Comments Absolute Immature Granulocyte (auto (idania t code = Absolute Immature Granulocyte (auto) 0.10 0-0.1 [facility] [address] [place] [address] Patient Name: VICKI ESPARZA MR #: [id number] : 1940 Age/Sex: 77/F Req #: [id number] Adm Physician: Ordered by: DHRUV MOLINA MD Report #: [id number] Location: ER Room/Bed: Procedure: [id number] CT/CT CHEST W Exam Da te: 02/15/18 [...] at 14:57 Dictated By: HILARIO CHAVEZ MD 56 Transcribed By: CALVIN on 02/15/181456 COPY TO: DHRUV MOLINA MD CHEST SINGLE (NOT PORTABLE) [place] [address] Patient Name: VICKI ESPARZA MR #: [id number] : 1940 Age/Sex: 77/F Req #: [id number] Adm Physician: ROB VEGA MD Ordered by: AKIRA LYNN NURSE EXAMINER Report #: [id number] Location: [facility] Room/Bed: [place] [address] Procedure: [id number] DX/CHEST SINGLE (NOT PORTABLE) [...] ally Signed By: LORE SPRING MD on 02/05/181439 Transcribed By: CALVIN on 04/18 COPY TO: AKIRA LYNN NURSE EXAMINER KNEE THREE VIEWS BILATERAL [place] [id number] [place] [address] Patient Name: VICKI ESPARZA MR #: [id number] OB: 1940 Age/Sex: 76/F Req #: [id number] Adm Physic larry: Ordered by: ERICA GARCIAS MD Report #: [id number] Location: E R Room/Bed: Procedure: [id number] DX/KNEE THREE VIEWS BILATERAL Exam Date: 06/17/17 [...]
--- NOTE | 2020-08-23 13:50 | Emergency Department Note ---
History of Present Illnes History of Present Illness Chief Complaint: General Medicine Complaints History of Present Illness This is a 79 year old female arrived to the ED with complaints of left-sided neck pain worse with motion and all palpation. Chief Complaint Comment PATIENT IN FROM HOME WITH COMPLAINTS OF LEFT SIDED NECK PAIN STARTING LAST NIGHT; DENIES ANY FALL OR TRAUMA, RATES PAIN 10/10, AMBULATORY WITH WALKER, APPEARS UNCOMFORTABLE, RESP EVEN AND NONLABORED Historian: Patient, Family Member Arrival Mode: Car Onset (how long ago): day(s) Radiation: Reports non-radiation Severity: mild Duration (how long): day(s) Timing of current episode: intermittent Progression: waxing and waning Chronicity: new Relieving factors: immobilization, rest Exacerbating factors: movement Associated symptoms: Reports denies other symptoms; Denies chest pain, Denies weakness Past Medical/Family History Physician Review I have reviewed the patient's past medical and family history. Any updates have been documented here. Past Medical History Recent Fever: No Clinical Suspicion of Infectio: No New/Unexplained Change in Ment: No Past Medical History: Hypertension, Hypothyroidism, CAD, Hyperlipedemia Other Medical History: PVD Past Surgical History: Cholecysctectomy, Hysterectomy, T&A, PCI, Hip Replacement Other Surgery: Left Hip Surgery, Right Nephrectomy 2016, Stents 2018, Tonsillectomy 1947 Other Last Tetanus: 2017 Review of Systems Review of Systems Constitutional: Reports no symptoms EENTM: Reports no symptoms Cardiovascular: Reports no symptoms Respiratory: Reports no symptoms Gastrointestinal: Reports no symptoms Genitourinary: Reports no symptoms Musculoskeletal: Reports as per HPI, Reports muscle pain, Reports muscle stiffness Integumentary: Reports no symptoms Neurological: Reports no symptoms Psychological: Reports no symptoms Endocrine: Reports no symptoms Hematological/Lymphatic: Reports no symptoms Physical Exam Related Data Allergies: Coded Allergies: levofloxacin (Verified Allergy, Severe, Unconscious, 08/23/20) promethazine (Verified Allergy, Severe, UNCONCIOUS, 08/23/20) labetalol (Verified Allergy, Mild, SEVERE WEAKNESS, 08/23/20) cefuroxime (Verified Allergy, Unknown, 08/23/20) sulfamethoxazole (Unverified Adverse Reaction, Severe, NONAROUSABLE, 08/23/20) PER PATIENT trimethoprim (Unverified Adverse Reaction, Severe, NONAROUSABLE, 08/23/20) PER PATIENT codeine (Verified Adverse Reaction, Intermediate, HALLUCINATIONS, 08/23/20) Triage Vital Signs Vital Signs Date Time Temp Pulse Resp B/P (MAP) Pulse Ox O2 Delivery O2 Flow Rate FiO2 08/23/20 11:51 97.5 99 20 108/94 100 Room Air Vital signs reviewed: Yes Physical Exam CONSTITUTIONAL Constitutional: Present well-developed, Present well-nourished HENT HENT: Present normocephalic, Present atraumatic, Present oropharynx clear/moist, Present nose normal HENT L/R: Present left ext ear normal, Present right ext ear normal EYES Eyes: Reports PERRL, Reports conjunctivae normal NECK Neck: Present ROM normal PULMONARY Pulmonary: Present effort normal, Present breath sounds normal CARDIOVASCULAR Cardiovascular: Present regular rhythm, Present heart sounds normal, Present capillary refill normal, Present normal rate GASTROINTESTINAL Abdominal: Present soft, Present nontender, Present bowel sounds normal GENITOURINARY Genitourinary: Present exam deferred SKIN Skin: Present warm, Present dry MUSCULOSKELETAL Musculoskeletal: Present ROM normal, Present tenderness, Present other (ten derness noted along lateral aspect of trapezius along insertion to base of occiput, no midline C-spine tenderness, normal handgrips bilateral upper extremities, normal motor and sensation) NEUROLOGICAL Neurological: Present alert, Present oriented x 3, Present no gross motor or sensory deficits PSYCHOLOGICAL Psychological: Present mood/affect normal, Present judgement normal Assessment & Plan Medical Decision Making MDM Cervical Radiculopathy + left sided neck pain radiating to bilateral upper extremities, reproducible on palpation and motion + sensation of weakness and numbness. ED Workup: Pain medication and CT cervical spine Given History, Exam the patient appears to have a cervical radiculopathy. Patient appears to be low risk for complications or other emergent conditions such as anginal equivalent, anaya cervical instability, arterial dissection, osteomyelitis, epidural abscess, central cord syndrome, c-spine fracture, other spinal emergencies Rx: NSAIDs, outpatient physical therapy evaluation and recommendation for home exercises in the interim Disposition: Discharge. The patient has been given strict return precautions and understands the need to follow up within 48 hours with their primary care provider Assessment & Plan Final Impression: (1) Cervical spinal stenosis (2) Degenerative disc disease Depart Disposition: HOME, SELF-CARE Last Vital Signs Date Time Temp Pulse Resp B/P (MAP) Pulse Ox O2 Delivery O2 Flow Rate FiO2 08/23/20 13:00 72 16 118/58 96 Room Air 08/23/20 11:51 97.5 Home Meds Reported Medications Metronidazole (FLAGYL) 250 Mg Tablet, 500 MG PO TID 07/15/20 Calcium Carbonate (TUMS) 300 Mg Tab.chew, 1 EA PO Q6H PRN for INDIGESTION 03/17/20 Amlodipine Besylate (AMLODIPINE BESYLATE) 5 Mg Tablet, 5 MG PO DAILY, #30 TAB 10/16/18 Clopidogrel Bisulfate (CLOPIDOGREL) 75 Mg Tablet, 75 MG PO DAILY, #30 TAB 10/16/18 Aspirin (ASPIR 81) 81 Mg Tablet.dr, 81 MG PO HS 01/14/18 Calcium Carbonate/Vitamin D3 (OS-CLARI 500+D TABLET) 1 Each Tablet, 500 MG PO BID, #30 TAB 07/27/14 Lovastatin (LOVASTATIN) 40 Mg Tablet, 40 MG PO HS 07/27/14 Liothyronine Sodium (LIOTHYRONINE SODIUM) 5 Mcg Tablet, 15 MCG PO DAILY 07/27/14 Levothyroxine Sodium (LEVOTHYROXINE SODIUM) 75 Mcg Tablet, 100 MCG PO DAILY, #30 TAB 07/27/14 Medications in the ED Acetaminophen/ Hydrocodone Bitart 1 ea ONCE ONCE PO Last administered on 08/23/20at 12:18; Admin Dose 1 EA; Start 08/23/20 at 12:15; Stop 08/23/20 at 12:16; Status DC Diazepam 2 mg ONCE ONCE PO Last administered on 08/23/20at 12:15; Admin Dose 2 MG; Start 08/23/20 at 12:15; Stop 08/23/20 at 12:16; Status DC Lidocaine 1 ea ONCE TP ; Start 08/23/20 at 14:00; Stop 09/22/20 at 13:59; Status IMANI CUEVAS DO Aug 23, 2020 13:50
--- NOTE | 2020-08-23 14:17 | Diagnostic Imaging Report ---
CT CERVICAL SPINE WO HISTORY: Neck pain COMPARISON: Cervical spine CT 07/05/2020 TECHNIQUE: CT of the cervical spine without contrast. Sagittal and coronal reformations were created. One or more of the following dose reduction techniques were used: Automated exposure control, adjustment of the mA and/or kV according to patient size, and/or utilization of iterative reconstruction technique. FINDINGS: Cervical lordosis is straightened. There is no scoliosis or subluxation. Mild bone demineralization limits evaluation. No definite acute fracture or compression deformity is seen. The craniocervical junction is intact. No gross spinal canal masses are seen. The paravertebral and paraspinal soft tissues are unremarkable. Degenerative changes: Multilevel spondylosis is advanced from C4 to C7. There is at least mild canal stenosis at C4-C5 and C5-C6 due to posterior disc osteophyte complexes. Multilevel bilateral foraminal stenoses due to uncovertebral and facet arthrosis are present - moderate on the left at C4-C5. Incidental findings: There is mild scarring in the lung apices. The thyroid gland appears atrophic. Severe right and mild left carotid bulb calcified plaque is present. IMPRESSION: 1. No acute osseous abnormalities. 2. Degenerative changes as described above. Signed by: Dr. Ramses Garcia M.D. on 08/23/2020 2:14 PM
[2020-08-23] MEDS: LIDOCAINE 4% PATCH TP ONE (14:47)
[2020-08-23] MEDS ORDERED: VALIUM2 MG PO (15:00)
[2020-08-23] MEDS ORDERED: NAPROXEN250 MG PO (15:00)
[2020-08-23 15:42] VITALS: BP 132/66
== END 2020-08-23 15:30 | disposition home or self-care (01) ==
LOC: ER 12:33
DX: M48.02 Spinal stenosis, cervical region (principal); M50.30 Other cervical disc degeneration, unspecified cervical region; I10 Essential (primary) hypertension; E78.5 Hyperlipidemia, unspecified; E03.9 Hypothyroidism, unspecified; I25.10 Atherosclerotic heart disease of native coronary artery without angina pectoris; I73.9 Peripheral vascular disease, unspecified
CPT/HCPCS: 72125; 99284

== ENCOUNTER 2021-02-05 12:51 | Emergency (ER) | payer MEDICARE ==
[~2021-02-05] VITALS: Ht 160 cm; Wt 67.6 kg
[~2021-02-05 12:51] MED LIST changes: +NAPROXEN250 MG PO; +VALIUM2 MG PO
== END 2021-02-05 14:52 | disposition home or self-care (01) ==
LOC: ER 13:10
DX: R07.9 Chest pain, unspecified (principal); I87.8 Other specified disorders of veins; I10 Essential (primary) hypertension; E78.5 Hyperlipidemia, unspecified; E03.9 Hypothyroidism, unspecified; I73.9 Peripheral vascular disease, unspecified; I25.10 Atherosclerotic heart disease of native coronary artery without angina pectoris
CPT/HCPCS: 36415; 84484; 93005; 99283

== ENCOUNTER 2021-02-09 13:32 | Observation (INO) | payer MEDICARE ==
[2021-02-04 11:48] LABS: BASOPHILS # (AUTO) 0.1 (0.0-0.1); BASOPHILS % 0.6 % (0.0-1.0); EOSINOPHILS # (AUTO) 0.1 (0.0-0.4); EOSINOPHILS % 0.6 % (0.0-6.0); HEMATOCRIT 44.4 % (34.2-44.1); HEMOGLOBIN 14.2 g/dL (12.0-16.0); LYMPHOCYTES # (AUTO) 1.8 (1.0-3.2); LYMPHOCYTES % 17.8 % (18.0-39.1); MEAN CORPUSCULAR HEMOGLOBIN 30.1 pg (28-32); MEAN CORPUSCULAR VOLUME 94.3 fL (81-99); MONOCYTES # (AUTO) 0.5 (0.2-0.8); MONOCYTES % 5.3 % (4.4-11.3); NEUTROPHILS # (AUTO) 7.4 (2.1-6.9); NEUTROPHILS % 75.3 % (38.7-80.0); PLATELET COUNT 343 x10e3/uL (140-360); RED BLOOD COUNT 4.71 x10e6/uL (3.6-5.1); RED CELL DISTRIBUTION WIDTH 12.4 % (11.7-14.4)
[2021-02-04 12:05] LABS: ALBUMIN 3.4 g/dL (3.5-5.0); ANION GAP 13.8 mmol/L (8-16); CALCIUM 10.7 mg/dL (8.4-10.2); CREATININE, SERUM 1.25 mg/dL (0.57-1.11); POTASSIUM 3.8 mmol/L (3.5-5.1)
[~2021-02-09] VITALS: Ht 160 cm; Wt 56.7 kg
[2021-02-09 13:40] VITALS: BP 146/104
[2021-02-09] MEDS ORDERED: ALPRAZOLAM 0.5 MG TAB ONE (14:05)
[2021-02-09] MEDS ORDERED: DIPHENHYDRAMINE HCL 25 MG CAP ONE (14:06)
[2021-02-09] MEDS ORDERED: CLOPIDOGREL75 MG PO (14:16)
[2021-02-09] MEDS ORDERED: MIDAZOLAM HCL 2 MG/2 ML VIAL ONE (14:25)
[2021-02-09] MEDS ORDERED: FENTANYL CITRATE/PF 100MCG/2 ML INJ ONE (14:26)
[2021-02-09] MEDS ORDERED: HEPARIN SOD/SOD CHLORIDE 2,000 ML ONE (14:26)
[2021-02-09] MEDS ORDERED: IOPAMIDOL 300MG/ML 100 ML INFUS..BTL IV ONE (14:26)
[2021-02-09] MEDS ORDERED: LIDOCAINE HCL 2% LOCAL 20 ML VIAL ONE (14:26)
[2021-02-09] MEDS ORDERED: SODIUM CHLORIDE 0.9% 1000ML 1,000 ML ONE (14:26)
[2021-02-09] MEDS ORDERED: PROTAMINE SULFATE 10 MG/ML 5 ML VIAL ONE (15:38)
[2021-02-09] MEDS ORDERED: PRASUGREL 10 MG TAB ONE (15:38)
[2021-02-09] MEDS ORDERED: ASPIRIN 325 MG TAB ONE (15:39)
[2021-02-09] MEDS ORDERED: SODIUM CHLORIDE 0.9% 50ML 50 ML ONE (15:39)
[2021-02-09] MEDS ORDERED: ONDANSETRON HCL INJ 2MG/ML 2ML 2 MG/ML VIAL IV PRN (16:00)
[2021-02-09] MEDS ORDERED: MORPHINE SULFATE INJ 4 MG/ML INJ 1ML IV PRN (16:00)
[2021-02-09] MEDS: SODIUM CHLORIDE 0.9% 1000ML 1,000 ML IV SCH (17:23)
[2021-02-09 17:28] VITALS: BP 130/91
[2021-02-09 18:00] VITALS: BP 130/91
[2021-02-09 20:00] VITALS: BP 127/58
[2021-02-09] MEDS ORDERED: MORPHINE SULFATE INJ 2 MG/ML SYR IV PRN (20:00)
[2021-02-09] MEDS: ACETAMINOPHEN 325 MG TAB PO PRN (20:28)
[2021-02-09] MEDS: SIMVASTATIN 40 MG TAB PO SCH (21:00)
[2021-02-09] MEDS: ASPIRIN 81 MG CHEW TAB PO SCH (21:00)
[2021-02-10] VITALS: BP 142/57
[2021-02-10] MEDS: ACETAMINOPHEN 325 MG TAB PO PRN ×3 (03:20→16:02)
[2021-02-10] MEDS: SODIUM CHLORIDE 0.9% 1000ML 1,000 ML IV SCH ×3 (03:42→18:03)
[2021-02-10 04:00] VITALS: BP 121/61
[2021-02-10 05:19] LABS: BASOPHILS % 0.5 % (0.0-1.0); EOSINOPHILS % 0.4 % (0.0-6.0); HEMATOCRIT 35.3 % (34.2-44.1); HEMOGLOBIN 11.4 g/dL (12.0-16.0); LYMPHOCYTES # (AUTO) 0.8 (1.0-3.2); LYMPHOCYTES % 10.2 % (18.0-39.1); MEAN CORPUSCULAR HEMOGLOBIN 30.1 pg (28-32); MEAN CORPUSCULAR HGB CONC 32.3 g/dL (31-35); MEAN CORPUSCULAR VOLUME 93.1 fL (81-99); MONOCYTES # (AUTO) 0.6 (0.2-0.8); MONOCYTES % 8.4 % (4.4-11.3); NEUTROPHILS % 80.1 % (38.7-80.0); PLATELET COUNT 255 x10e3/uL (140-360); RED BLOOD COUNT 3.79 x10e6/uL (3.6-5.1); RED CELL DISTRIBUTION WIDTH 12.5 % (11.7-14.4)
[2021-02-10 05:42] LABS: ANION GAP 10.8 mmol/L (8-16); CALCIUM 9.3 mg/dL (8.4-10.2); CREATININE, SERUM 1.02 mg/dL (0.57-1.11); POTASSIUM 3.8 mmol/L (3.5-5.1)
[2021-02-10] MEDS: LEVOTHYROXINE SODIUM 100 MCG TAB PO SCH (05:56)
[2021-02-10] MEDS: LIOTHYRONINE SODIUM 5 MCG TAB PO SCH (06:30)
[2021-02-10 08:17] VITALS: BP 126/57
[2021-02-10 08:48] VITALS: BP 126/57
[2021-02-10] MEDS: CLOPIDOGREL BISULFATE 75 MG TAB PO SCH (09:00)
[2021-02-10] MEDS: AMLODIPINE BESYLATE 5 MG TAB PO SCH (12:00)
[2021-02-10 18:18] VITALS: BP 135/65
[2021-02-10 20:00] VITALS: BP 148/61
[2021-02-10] MEDS: ASPIRIN 81 MG CHEW TAB PO SCH (21:00)
[2021-02-10] MEDS: SIMVASTATIN 40 MG TAB PO SCH (21:00)
[2021-02-11] VITALS: BP 148/68
[2021-02-11] MEDS: ACETAMINOPHEN 325 MG TAB PO PRN ×2 (02:58→10:13)
[2021-02-11 04:00] VITALS: BP 150/66
[2021-02-11] MEDS: LEVOTHYROXINE SODIUM 100 MCG TAB PO SCH (06:17)
[2021-02-11] MEDS: LIOTHYRONINE SODIUM 5 MCG TAB PO SCH (06:30)
[2021-02-11 07:40] VITALS: BP 149/59
[2021-02-11] MEDS: AMLODIPINE BESYLATE 5 MG TAB PO SCH (09:00)
[2021-02-11] MEDS: CLOPIDOGREL BISULFATE 75 MG TAB PO SCH (09:00)
[2021-02-11] MEDS: SODIUM CHLORIDE 0.9% 1000ML 1,000 ML IV SCH (09:00)
[2021-02-11 10:19] VITALS: BP 149/59
[2021-02-11 11:33] VITALS: BP 170/67
== END 2021-02-11 12:24 | disposition home or self-care (01) ==
LOC: CATH LAB 13:32 → CATH LAB V 15:50 → MED/SURG 16:44
PROVIDERS: ADMIT Internal Medicine Interventional Cardiology; ATTEND Internal Medicine Interventional Cardiology
DX: I70.222 Atherosclerosis of native arteries of extremities with rest pain, left leg (principal); E07.9 Disorder of thyroid, unspecified; I10 Essential (primary) hypertension; E78.00 Pure hypercholesterolemia, unspecified; Z20.822 Contact with and (suspected) exposure to COVID-19
CPT/HCPCS: 36415 ×2; 37226; 37228; 75710; 76937; 80048; 80053; 83880; 85025 ×2; 93005; 93926; 97116; 97161; C1766; C1769 ×2; C1874; C1887; G0378 ×3; J2001; J2250; J2270; J2405; J2720; J3010; J7030 ×3; Q9967; U0002; 36247; 99152; 99153

== ENCOUNTER 2021-03-16 08:49 | Inpatient (IN) | payer MEDICARE ==
[~2021-03-16] VITALS: Ht 160 cm; Wt 72.6 kg
[2021-03-16] MEDS ORDERED: ASPIRIN 81 MG CHEW TAB PO ONE ×2 (09:00→10:30)
[2021-03-16 09:39] LABS: BASOPHILS # (AUTO) 0.1 (0.0-0.1); BASOPHILS % 0.4 % (0.0-1.0); EOSINOPHILS % 0.2 % (0.0-6.0); HEMATOCRIT 41.4 % (34.2-44.1); HEMOGLOBIN 13.1 g/dL (12.0-16.0); LYMPHOCYTES # (AUTO) 1.6 (1.0-3.2); MEAN CORPUSCULAR HEMOGLOBIN 29.8 pg (28-32); MEAN CORPUSCULAR HGB CONC 31.6 g/dL (31-35); MEAN CORPUSCULAR VOLUME 94.3 fL (81-99); MONOCYTES # (AUTO) 0.8 (0.2-0.8); MONOCYTES % 6.4 % (4.4-11.3); NEUTROPHILS # (AUTO) 10.6 (2.1-6.9); NEUTROPHILS % 80.5 % (38.7-80.0); PLATELET COUNT 251 x10e3/uL (140-360); RED BLOOD COUNT 4.39 x10e6/uL (3.6-5.1); RED CELL DISTRIBUTION WIDTH 13.5 % (11.7-14.4)
[2021-03-16] MEDS ORDERED: INDOCIN50 MG PO (09:45)
[2021-03-16 09:57] LABS: ALBUMIN/GLOBULIN RATIO 0.9 (0.8-2.0); ANION GAP 15.2 mmol/L (8-16); CALCIUM 9.4 mg/dL (8.4-10.2); CREATININE, SERUM 1.2 mg/dL (0.57-1.11); POTASSIUM 4.2 mmol/L (3.5-5.1)
[2021-03-16] MEDS ORDERED: ONDANSETRON HCL INJ 2MG/ML 2ML 2 MG/ML VIAL IV PRN (10:30)
[2021-03-16] MEDS ORDERED: MORPHINE SULFATE INJ 2 MG/ML SYR IV PRN (10:30)
[2021-03-16] MEDS ORDERED: ENOXAPARIN SOD INJ 60 MG/0.6 ML SYR SC ONE (11:00)
[2021-03-16] MEDS ORDERED: MORPHINE SULFATE INJ 4 MG/ML INJ 1ML IV PRN (11:00)
[2021-03-16 11:03] LABS: CLARITY,URINE CLEAR (CLEAR); COLOR,URINE YELLOW (YELLOW); KETONES,URINE NEGATIVE (NEGATIVE); LEUKOCYTE ESTERASE ,URINE NEGATIVE (NEGATIVE); NITRITE,URINE NEGATIVE (NEGATIVE); PROTEIN,URINE DIPSTICK NEGATIVE (NEGATIVE); URINE UROBILINOGEN 0.2 mg/dL (0.2 - 1)
[2021-03-16 11:07] LABS: BACTERIA,URINE FEW /HPF; EPITHELIAL CELLS,URINE RARE /LPF; RBC,URINE 0-5 /HPF (0-5)
[2021-03-16 17:20] VITALS: BP 149/51
[2021-03-16 17:58] LABS: CREATINE KINASE MB 3.7 ng/mL (0-5.0)
[2021-03-16 18:40] VITALS: BP 149/51
[2021-03-16 18:42] VITALS: BP 149/51
[2021-03-16 21:02] VITALS: BP 141/62
[2021-03-16 21:49] VITALS: BP 141/62
[2021-03-16] MEDS ORDERED: ENOXAPARIN SOD INJ 60 MG/0.6 ML SYR SC SCH ×2 (22:00→22:30)
[2021-03-17] VITALS (15 sets, daily range): BP systolic 116–160; BP diastolic 58–77
[2021-03-17 05:17] LABS: BASOPHILS # (AUTO) 0.1 (0.0-0.1); BASOPHILS % 0.7 % (0.0-1.0); EOSINOPHILS % 0.2 % (0.0-6.0); HEMATOCRIT 42.4 % (34.2-44.1); HEMOGLOBIN 13.5 g/dL (12.0-16.0); LYMPHOCYTES # (AUTO) 1.8 (1.0-3.2); LYMPHOCYTES % 17.2 % (18.0-39.1); MEAN CORPUSCULAR HEMOGLOBIN 29.6 pg (28-32); MEAN CORPUSCULAR HGB CONC 31.8 g/dL (31-35); MONOCYTES # (AUTO) 0.9 (0.2-0.8); MONOCYTES % 8.6 % (4.4-11.3); NEUTROPHILS # (AUTO) 7.8 (2.1-6.9); NEUTROPHILS % 72.9 % (38.7-80.0); PLATELET COUNT 267 x10e3/uL (140-360); RED BLOOD COUNT 4.56 x10e6/uL (3.6-5.1); RED CELL DISTRIBUTION WIDTH 13.4 % (11.7-14.4)
[2021-03-17 05:43] LABS: ALBUMIN/GLOBULIN RATIO 0.9 (0.8-2.0); ANION GAP 14.3 mmol/L (8-16); CALCIUM 9.6 mg/dL (8.4-10.2); CREATININE, SERUM 1.06 mg/dL (0.57-1.11); POTASSIUM 4.3 mmol/L (3.5-5.1)
[2021-03-17] MEDS ORDERED: ACETAMINOPHEN 325 MG TAB PO PRN (05:45)
[2021-03-17] MEDS ORDERED: LIOTHYRONINE SODIUM 5 MCG TAB PO SCH ×3 (06:00)
[2021-03-17 06:06] LABS: CREATINE KINASE MB 1.9 ng/mL (0-5.0)
[2021-03-17] MEDS ORDERED: LEVOTHYROXINE SODIUM 100 MCG TAB PO SCH (07:30)
[2021-03-17] MEDS ORDERED: HEPARIN SOD (PORCINE) 1000 UNIT/ML 30ML ONE (09:35)
[2021-03-17] MEDS ORDERED: MIDAZOLAM HCL 2 MG/2 ML VIAL ONE (09:36)
[2021-03-17] MEDS ORDERED: FENTANYL CITRATE/PF 100MCG/2 ML INJ ONE (09:36)
[2021-03-17] MEDS ORDERED: VERAPAMIL HCL 2.5 MG/ML 2 ML VIAL ONE (09:36)
[2021-03-17] MEDS ORDERED: LIDOCAINE HCL 2% LOCAL 20 ML VIAL ONE (09:36)
[2021-03-17] MEDS ORDERED: HEPARIN SOD/SOD CHLORIDE 2,000 ML ONE (09:37)
[2021-03-17] MEDS ORDERED: SODIUM CHLORIDE 0.9% 1000ML 1,000 ML ONE (09:38)
[2021-03-17] MEDS ORDERED: IOPAMIDOL 370 MG/ML 200 ML INFUS..BTL INJ ONE (09:38)
[2021-03-17] MEDS ORDERED: NITROGLYCERIN/D5W 200 MCG/ML 250 ML ONE (09:38)
[2021-03-17 14:02] LABS: CREATINE KINASE MB 1.4 ng/mL (0-5.0)
[2021-03-17] MEDS ORDERED: TOPROL XL50 MG PO ×2 (18:45→18:55)
[2021-03-17] MEDS ORDERED: METOPROLOL SUCCINATE 25 MG TAB XL PO SCH (19:00)
[2021-03-17] MEDS ORDERED: SIMVASTATIN 40 MG TAB PO SCH (21:00)
== END 2021-03-17 20:14 | disposition home or self-care (01) | DRG 282 ==
LOC: ER 09:11 → ERHOLD 10:18 → MED/SURG2 17:06
PROVIDERS: ADMIT Internal Medicine; ATTEND Internal Medicine
PROC: 4A023N7 Measurement of Cardiac Sampling and Pressure, Left Heart, Percutaneous Approach (ICD-10-PCS; principal; 2021-03-16)
PROC: B2111ZZ Fluoroscopy of Multiple Coronary Arteries using Low Osmolar Contrast (ICD-10-PCS; 2021-03-16)
DX: I21.4 Non-ST elevation (NSTEMI) myocardial infarction (principal); E78.5 Hyperlipidemia, unspecified; I73.9 Peripheral vascular disease, unspecified; K21.9 Gastro-esophageal reflux disease without esophagitis; M19.90 Unspecified osteoarthritis, unspecified site; Z95.820 Peripheral vascular angioplasty status with implants and grafts; M25.552 Pain in left hip; I25.110 Atherosclerotic heart disease of native coronary artery with unstable angina pectoris; I12.9 Hypertensive chronic kidney disease with stage 1 through stage 4 chronic kidney disease, or unspecified chronic kidney disease; N18.30 Chronic kidney disease, stage 3 unspecified
CPT/HCPCS: 36415; 70450; 71045; 73521; 80053; 81001; 82550; 82553; 83880; 84484; 85025; 93005; 93306; 93454; 93880; 99152; 99251; 99285; J1644; J1650; J2001; J2250; J2405; J3010; J7030; Q9967; U0002

== ENCOUNTER 2021-04-10 09:43 | Emergency (ER) | payer MEDICARE ==
[~2021-04-10] VITALS: Ht 160 cm; Wt 72.6 kg
[~2021-04-10 09:43] MED LIST changes: +INDOCIN50 MG PO; +TOPROL XL50 MG PO
[2021-04-10] MEDS ORDERED: LIDOCAINE 4% PATCH TP ONE (10:00)
[2021-04-10] MEDS ORDERED: INDOMETHACIN50 MG PO (10:03)
[2021-04-10] MEDS ORDERED: LEVOTHYROXINE100 MCG PO (10:03)
[2021-04-10] MEDS ORDERED: MELOXICAM15 MG PO (10:03)
[2021-04-10] MEDS ORDERED: DEXAMETHASONE SOD PHOS 10 MG/1 ML VIAL IM ONE (10:15)
[2021-04-10] MEDS ORDERED: TRAMADOL HCL 50 MG TAB PO ONE (10:15)
== END 2021-04-10 11:49 | disposition home or self-care (01) ==
LOC: ER 10:20
DX: M54.41 Lumbago with sciatica, right side (principal); I10 Essential (primary) hypertension; E78.5 Hyperlipidemia, unspecified; K21.9 Gastro-esophageal reflux disease without esophagitis; M54.9 Dorsalgia, unspecified; G89.29 Other chronic pain; Z85.53 Personal history of malignant neoplasm of renal pelvis
CPT/HCPCS: 72110; 73502; 99283; J1100

== ENCOUNTER 2021-05-05 08:34 | Emergency (ER) | payer MEDICARE ==
[~2021-05-05] VITALS: Ht 160 cm; Wt 72.6 kg
[~2021-05-05 08:34] MED LIST changes: +INDOMETHACIN50 MG PO; +LEVOTHYROXINE100 MCG PO; +MELOXICAM15 MG PO
== END 2021-05-05 09:23 | disposition home or self-care (01) ==
LOC: ER 08:42
DX: M79.675 Pain in left toe(s) (principal); I10 Essential (primary) hypertension; E78.5 Hyperlipidemia, unspecified; K21.9 Gastro-esophageal reflux disease without esophagitis; M54.9 Dorsalgia, unspecified; G89.29 Other chronic pain; Z85.53 Personal history of malignant neoplasm of renal pelvis
CPT/HCPCS: 99283

== ENCOUNTER → 2021-05-10 | Outpatient (CLI) | payer MEDICARE | LOC: CARD 12:47 | PROVIDERS: ATTEND Internal Medicine | DX: L03.116 Cellulitis of left lower limb (principal); I73.9 Peripheral vascular disease, unspecified | CPT/HCPCS: 93926 ==

== ENCOUNTER 2021-05-15 03:55 | Inpatient (IN) | payer MEDICARE ==
[~2021-05-15] VITALS: Ht 160 cm; Wt 58.5 kg
[2021-05-15] MEDS ORDERED: ACETAMINOPHEN 325 MG TAB PO PRN (04:30)
[2021-05-15] MEDS ORDERED: DIPHENHYDRAMINE HCL INJ 50 MG/ML VIAL IV PRN (04:45)
[2021-05-15] MEDS ORDERED: ONDANSETRON HCL INJ 2MG/ML 2ML 2 MG/ML VIAL IV PRN (04:45)
[2021-05-15] MEDS ORDERED: IBUPROFEN 200 MG TAB PO PRN (04:45)
[2021-05-15] MEDS ORDERED: SODIUM CHLORIDE 0.9% 250ML 250 ML ONE (05:07)
[2021-05-15] MEDS ORDERED: Vancomycin IV 1 GM VIAL ONE (05:08)
[2021-05-15] MEDS ORDERED: SODIUM CHLORIDE 0.9% 1000ML 1,000 ML ONE (05:08)
[2021-05-15] MEDS: Vancomycin IV 1 GM in SODIUM CHLORIDE 0.9% 250ML 250 ML IV SCH ×2 (05:30→16:28)
[2021-05-15] MEDS: SODIUM CHLORIDE 0.9% 1000ML 1,000 ML IV SCH (05:30)
[2021-05-15] MEDS ORDERED: CLINDAMYCIN PHOS 900MG/ 50ML 50 ML IV SCH (06:00)
[2021-05-15 07:52] VITALS: BP 159/65
[2021-05-15 08:00] VITALS: BP_SYST 156; BP_SYST 159; BP_DIAS 63; BP_DIAS 65
[2021-05-15] MEDS ORDERED: METOPROLOL SUCCINATE 50 MG TAB XL PO SCH ×2 (09:00→21:00)
[2021-05-15] MEDS: CEFEPIME 1 GM in SODIUM CHLORIDE 0.9% 50ML 50 ML IV SCH ×2 (09:00→20:39)
[2021-05-15] MEDS: CLOPIDOGREL BISULFATE 75 MG TAB PO SCH (09:00)
[2021-05-15] MEDS: AMLODIPINE BESYLATE 5 MG TAB PO SCH ×2 (09:46→16:08)
[2021-05-15 09:47] VITALS: BP 159/65
[2021-05-15] MEDS: LEVOTHYROXINE SODIUM 100 MCG TAB PO SCH (10:21)
[2021-05-15] MEDS: LIOTHYRONINE SODIUM 5 MCG TAB PO SCH (10:21)
[2021-05-15 11:31] VITALS: BP 149/59
[2021-05-15 15:50] VITALS: BP 154/68
[2021-05-15] MEDS: ACETAMINOPHEN 325 MG TAB PO PRN (16:08)
[2021-05-15] MEDS: SIMVASTATIN 20 MG TAB PO SCH (20:53)
[2021-05-15 21:47] VITALS: BP 156/63
[2021-05-16] VITALS (9 sets, daily range): BP systolic 132–167; BP diastolic 56–85
[2021-05-16] MEDS ORDERED: CALCIUM500 MG PO (01:19)
[2021-05-16] MEDS: SODIUM CHLORIDE 0.9% 1000ML 1,000 ML IV SCH ×2 (02:02→21:59)
[2021-05-16] MEDS: Vancomycin IV 1 GM in SODIUM CHLORIDE 0.9% 250ML 250 ML IV SCH ×2 (04:23→16:30)
[2021-05-16] MEDS: LIOTHYRONINE SODIUM 5 MCG TAB PO SCH (05:46)
[2021-05-16] MEDS ORDERED: LIOTHYRONINE SODIUM 5 MCG TAB PO SCH (06:00)
[2021-05-16 06:04] LABS: BASOPHILS # (AUTO) 0.1 (0.0-0.1); BASOPHILS % 0.7 % (0.0-1.0); EOSINOPHILS # (AUTO) 0.1 (0.0-0.4); EOSINOPHILS % 0.9 % (0.0-6.0); HEMATOCRIT 39.2 % (34.2-44.1); HEMOGLOBIN 12.1 g/dL (12.0-16.0); LYMPHOCYTES # (AUTO) 2.8 (1.0-3.2); MEAN CORPUSCULAR HEMOGLOBIN 28.8 pg (28-32); MEAN CORPUSCULAR HGB CONC 30.9 g/dL (31-35); MEAN CORPUSCULAR VOLUME 93.3 fL (81-99); MONOCYTES % 7.7 % (4.4-11.3); NEUTROPHILS # (AUTO) 9.2 (2.1-6.9); NEUTROPHILS % 69.1 % (38.7-80.0); PLATELET COUNT 391 x10e3/uL (140-360); RED CELL DISTRIBUTION WIDTH 12.9 % (11.7-14.4)
[2021-05-16 06:32] LABS: ANION GAP 14.9 mmol/L (8-16); CALCIUM 9.9 mg/dL (8.4-10.2); CREATININE, SERUM 1.01 mg/dL (0.57-1.11); POTASSIUM 3.9 mmol/L (3.5-5.1)
[2021-05-16] MEDS: CEFEPIME 1 GM in SODIUM CHLORIDE 0.9% 50ML 50 ML IV SCH ×2 (08:47→21:59)
[2021-05-16] MEDS: CLOPIDOGREL BISULFATE 75 MG TAB PO SCH (08:48)
[2021-05-16] MEDS: AMLODIPINE BESYLATE 5 MG TAB PO SCH ×2 (08:48→17:12)
[2021-05-16] MEDS: LEVOTHYROXINE SODIUM 100 MCG TAB PO SCH (08:49)
[2021-05-16] MEDS ORDERED: METOPROLOL SUCCINATE 50 MG TAB XL PO SCH ×2 (09:00→21:00)
[2021-05-16] MEDS ORDERED: LEVOTHYROXINE SODIUM 100 MCG TAB PO SCH (09:00)
[2021-05-16] MEDS: ACETAMINOPHEN 325 MG TAB PO PRN (11:37)
[2021-05-16] MEDS ORDERED: ASPIRIN CHEW81 MG PO (11:50)
[2021-05-16] MEDS: CALCIUM CARBONATE 500 MG CHEWABLE TABS PO SCH (17:12)
[2021-05-16] MEDS ORDERED: ULTRAM50 MG PO (17:24)
[2021-05-16] MEDS: METOPROLOL SUCCINATE 25 MG TAB XL PO SCH (22:00)
[2021-05-16] MEDS: SIMVASTATIN 20 MG TAB PO SCH (22:00)
[2021-05-16] MEDS: TRAMADOL HCL 50 MG TAB PO PRN (22:30)
[2021-05-17] VITALS (7 sets, daily range): BP systolic 130–160; BP diastolic 64–73
[2021-05-17] MEDS: ACETAMINOPHEN 325 MG TAB PO PRN (02:31)
[2021-05-17] MEDS: Vancomycin IV 1 GM in SODIUM CHLORIDE 0.9% 250ML 250 ML IV SCH ×2 (04:30→06:30)
[2021-05-17 05:09] LABS: BASOPHILS # (AUTO) 0.1 (0.0-0.1); BASOPHILS % 0.8 % (0.0-1.0); EOSINOPHILS # (AUTO) 0.1 (0.0-0.4); EOSINOPHILS % 0.9 % (0.0-6.0); HEMATOCRIT 35.1 % (34.2-44.1); HEMOGLOBIN 11.1 g/dL (12.0-16.0); LYMPHOCYTES % 19.3 % (18.0-39.1); MEAN CORPUSCULAR HEMOGLOBIN 29.6 pg (28-32); MEAN CORPUSCULAR HGB CONC 31.6 g/dL (31-35); MEAN CORPUSCULAR VOLUME 93.6 fL (81-99); MONOCYTES # (AUTO) 0.9 (0.2-0.8); MONOCYTES % 8.5 % (4.4-11.3); NEUTROPHILS # (AUTO) 7.4 (2.1-6.9); NEUTROPHILS % 69.9 % (38.7-80.0); PLATELET COUNT 337 x10e3/uL (140-360); RED BLOOD COUNT 3.75 x10e6/uL (3.6-5.1); RED CELL DISTRIBUTION WIDTH 12.8 % (11.7-14.4)
[2021-05-17 05:56] LABS: ANION GAP 11.9 mmol/L (8-16); CALCIUM 9.5 mg/dL (8.4-10.2); CREATININE, SERUM 0.89 mg/dL (0.57-1.11); POTASSIUM 3.9 mmol/L (3.5-5.1)
[2021-05-17] MEDS: LIOTHYRONINE SODIUM 5 MCG TAB PO SCH (06:00)
[2021-05-17] MEDS: AMLODIPINE BESYLATE 5 MG TAB PO SCH ×2 (08:22→16:41)
[2021-05-17] MEDS: LEVOTHYROXINE SODIUM 100 MCG TAB PO SCH (08:22)
[2021-05-17] MEDS: CALCIUM CARBONATE 500 MG CHEWABLE TABS PO SCH ×2 (08:23→16:41)
[2021-05-17] MEDS: CLOPIDOGREL BISULFATE 75 MG TAB PO SCH (08:23)
[2021-05-17] MEDS: CEFEPIME 1 GM in SODIUM CHLORIDE 0.9% 50ML 50 ML IV SCH ×2 (09:06→20:47)
[2021-05-17] MEDS: METOPROLOL SUCCINATE 25 MG TAB XL PO SCH (20:46)
[2021-05-17] MEDS: SIMVASTATIN 20 MG TAB PO SCH (20:46)
[2021-05-17] MEDS: TRAMADOL HCL 50 MG TAB PO PRN (22:00)
[2021-05-17] MEDS: SODIUM CHLORIDE 0.9% 1000ML 1,000 ML IV SCH (23:00)
[2021-05-18] VITALS (10 sets, daily range): BP systolic 102–153; BP diastolic 55–89
[2021-05-18] MEDS: LIOTHYRONINE SODIUM 5 MCG TAB PO SCH (06:40)
[2021-05-18] MEDS ORDERED: Vancomycin IV 1 GM VIAL ONE (08:32)
[2021-05-18] MEDS: CLOPIDOGREL BISULFATE 75 MG TAB PO SCH (09:35)
[2021-05-18] MEDS: AMLODIPINE BESYLATE 5 MG TAB PO SCH ×2 (09:35→18:44)
[2021-05-18] MEDS: LEVOTHYROXINE SODIUM 100 MCG TAB PO SCH (09:35)
[2021-05-18] MEDS: CALCIUM CARBONATE 500 MG CHEWABLE TABS PO SCH ×2 (09:35→18:44)
[2021-05-18] MEDS: Vancomycin IV 1 GM in SODIUM CHLORIDE 0.9% 250ML 250 ML IV SCH (11:00)
[2021-05-18] MEDS: CEFEPIME 1 GM in SODIUM CHLORIDE 0.9% 50ML 50 ML IV SCH ×2 (11:00→22:19)
[2021-05-18] MEDS: SODIUM CHLORIDE 0.9% 1000ML 1,000 ML IV SCH (12:30)
[2021-05-18] MEDS: TRAMADOL HCL 50 MG TAB PO PRN (14:57)
[2021-05-18] MEDS ORDERED: NITROGLYCERIN 0.4 MG SUBL SL PRN (17:00)
[2021-05-18] MEDS ORDERED: ASPIRIN 81 MG CHEW TAB PO ONE ×2 (17:15)
[2021-05-18 17:24] LABS: BASOPHILS # (AUTO) 0.1 (0.0-0.1); BASOPHILS % 0.6 % (0.0-1.0); EOSINOPHILS # (AUTO) 0.1 (0.0-0.4); HEMATOCRIT 34.6 % (34.2-44.1); LYMPHOCYTES # (AUTO) 2.3 (1.0-3.2); LYMPHOCYTES % 17.6 % (18.0-39.1); MEAN CORPUSCULAR HEMOGLOBIN 29.1 pg (28-32); MEAN CORPUSCULAR HGB CONC 31.8 g/dL (31-35); MEAN CORPUSCULAR VOLUME 91.5 fL (81-99); MONOCYTES # (AUTO) 0.9 (0.2-0.8); MONOCYTES % 7.2 % (4.4-11.3); NEUTROPHILS # (AUTO) 9.6 (2.1-6.9); NEUTROPHILS % 73.3 % (38.7-80.0); PLATELET COUNT 361 x10e3/uL (140-360); RED BLOOD COUNT 3.78 x10e6/uL (3.6-5.1); RED CELL DISTRIBUTION WIDTH 12.7 % (11.7-14.4)
[2021-05-18 17:38] LABS: ANION GAP 14.6 mmol/L (8-16); CALCIUM 9.1 mg/dL (8.4-10.2); CREATININE, SERUM 0.85 mg/dL (0.57-1.11); POTASSIUM 3.6 mmol/L (3.5-5.1)
[2021-05-18 17:40] LABS: CREATINE KINASE 28 IU/L (29-168)
[2021-05-18] MEDS: METOPROLOL SUCCINATE 25 MG TAB XL PO SCH (22:19)
[2021-05-18] MEDS: SIMVASTATIN 20 MG TAB PO SCH (22:19)
[2021-05-19] VITALS (8 sets, daily range): BP systolic 117–159; BP diastolic 63–75
[2021-05-19] MEDS: LIOTHYRONINE SODIUM 5 MCG TAB PO SCH (07:04)
[2021-05-19] MEDS: CLOPIDOGREL BISULFATE 75 MG TAB PO SCH (09:18)
[2021-05-19] MEDS: AMLODIPINE BESYLATE 5 MG TAB PO SCH ×2 (09:19→16:45)
[2021-05-19] MEDS: SODIUM CHLORIDE 0.9% 1000ML 1,000 ML IV SCH (09:22)
[2021-05-19] MEDS: Vancomycin IV 1 GM in SODIUM CHLORIDE 0.9% 250ML 250 ML IV SCH (09:22)
[2021-05-19] MEDS: CEFEPIME 1 GM in SODIUM CHLORIDE 0.9% 50ML 50 ML IV SCH ×2 (09:22→21:27)
[2021-05-19] MEDS: LEVOTHYROXINE SODIUM 100 MCG TAB PO SCH (09:33)
[2021-05-19] MEDS: CALCIUM CARBONATE 500 MG CHEWABLE TABS PO SCH ×2 (09:33→16:45)
[2021-05-19] MEDS: METOPROLOL SUCCINATE 25 MG TAB XL PO SCH (21:27)
[2021-05-19] MEDS: SIMVASTATIN 20 MG TAB PO SCH (21:27)
[2021-05-20] VITALS (8 sets, daily range): BP systolic 135–159; BP diastolic 56–72
[2021-05-20] MEDS: LIOTHYRONINE SODIUM 5 MCG TAB PO SCH (06:13)
[2021-05-20] MEDS: SODIUM CHLORIDE 0.9% 1000ML 1,000 ML IV SCH (06:13)
[2021-05-20] MEDS: CEFEPIME 1 GM in SODIUM CHLORIDE 0.9% 50ML 50 ML IV SCH ×2 (08:41→22:23)
[2021-05-20] MEDS: CALCIUM CARBONATE 500 MG CHEWABLE TABS PO SCH ×2 (08:41→17:35)
[2021-05-20] MEDS: AMLODIPINE BESYLATE 5 MG TAB PO SCH ×2 (08:41→17:35)
[2021-05-20] MEDS: CLOPIDOGREL BISULFATE 75 MG TAB PO SCH (08:41)
[2021-05-20] MEDS: LEVOTHYROXINE SODIUM 100 MCG TAB PO SCH (08:41)
[2021-05-20] MEDS: Vancomycin IV 1 GM in SODIUM CHLORIDE 0.9% 250ML 250 ML IV SCH (09:00)
[2021-05-20] MEDS: SIMVASTATIN 20 MG TAB PO SCH (22:22)
[2021-05-20] MEDS: METOPROLOL SUCCINATE 25 MG TAB XL PO SCH (22:23)
[2021-05-21] VITALS (7 sets, daily range): BP systolic 138–148; BP diastolic 57–66
[2021-05-21] MEDS: SODIUM CHLORIDE 0.9% 1000ML 1,000 ML IV SCH (00:30)
[2021-05-21] MEDS: TRAMADOL HCL 50 MG TAB PO PRN (01:10)
[2021-05-21] MEDS: LIOTHYRONINE SODIUM 5 MCG TAB PO SCH (06:12)
[2021-05-21] MEDS: CALCIUM CARBONATE 500 MG CHEWABLE TABS PO SCH ×2 (08:23→18:00)
[2021-05-21] MEDS: AMLODIPINE BESYLATE 5 MG TAB PO SCH ×2 (08:23→18:00)
[2021-05-21] MEDS: CEFEPIME 1 GM in SODIUM CHLORIDE 0.9% 50ML 50 ML IV SCH ×2 (08:23→21:00)
[2021-05-21] MEDS: LEVOTHYROXINE SODIUM 100 MCG TAB PO SCH (08:23)
[2021-05-21] MEDS: CLOPIDOGREL BISULFATE 75 MG TAB PO SCH (08:23)
[2021-05-21] MEDS: Vancomycin IV 750 MG in SODIUM CHLORIDE 0.9% 250ML 150 ML IV SCH (09:34)
[2021-05-21] MEDS: METOPROLOL SUCCINATE 25 MG TAB XL PO SCH (21:00)
[2021-05-21] MEDS: SIMVASTATIN 20 MG TAB PO SCH (21:00)
[2021-05-22] VITALS (7 sets, daily range): BP systolic 135–165; BP diastolic 56–61
[2021-05-22] MEDS: SODIUM CHLORIDE 0.9% 1000ML 1,000 ML IV SCH ×2 (01:49→15:33)
[2021-05-22] MEDS: LIOTHYRONINE SODIUM 5 MCG TAB PO SCH (06:00)
[2021-05-22] MEDS: CLOPIDOGREL BISULFATE 75 MG TAB PO SCH (08:54)
[2021-05-22] MEDS: LEVOTHYROXINE SODIUM 100 MCG TAB PO SCH (08:54)
[2021-05-22] MEDS: CALCIUM CARBONATE 500 MG CHEWABLE TABS PO SCH ×2 (08:54→17:56)
[2021-05-22] MEDS: CEFEPIME 1 GM in SODIUM CHLORIDE 0.9% 50ML 50 ML IV SCH ×2 (08:54→21:53)
[2021-05-22] MEDS: AMLODIPINE BESYLATE 5 MG TAB PO SCH ×2 (08:54→17:56)
[2021-05-22] MEDS: Vancomycin IV 750 MG in SODIUM CHLORIDE 0.9% 250ML 150 ML IV SCH (10:00)
[2021-05-22] MEDS: TRAMADOL HCL 50 MG TAB PO PRN (19:31)
[2021-05-22] MEDS: SIMVASTATIN 20 MG TAB PO SCH (21:52)
[2021-05-22] MEDS: METOPROLOL SUCCINATE 25 MG TAB XL PO SCH (21:55)
[2021-05-22] MEDS: ACETAMINOPHEN 325 MG TAB PO PRN (23:34)
[2021-05-23] VITALS: BP 133/55
[2021-05-23 04:00] VITALS: BP 143/56
[2021-05-23] MEDS: LIOTHYRONINE SODIUM 5 MCG TAB PO SCH (06:31)
[2021-05-23] MEDS: LEVOTHYROXINE SODIUM 100 MCG TAB PO SCH (07:15)
[2021-05-23 08:51] VITALS: BP 149/58
[2021-05-23] MEDS: CEFEPIME 1 GM in SODIUM CHLORIDE 0.9% 50ML 50 ML IV SCH (09:00)
[2021-05-23] MEDS: Vancomycin IV 750 MG in SODIUM CHLORIDE 0.9% 250ML 150 ML IV SCH (09:00)
[2021-05-23 09:23] VITALS: BP 149/58
[2021-05-23] MEDS: AMLODIPINE BESYLATE 5 MG TAB PO SCH (09:41)
[2021-05-23] MEDS: CLOPIDOGREL BISULFATE 75 MG TAB PO SCH (09:41)
[2021-05-23] MEDS: CALCIUM CARBONATE 500 MG CHEWABLE TABS PO SCH (09:42)
[2021-05-23] MEDS: SODIUM CHLORIDE 0.9% 1000ML 1,000 ML IV SCH (12:30)
== END 2021-05-23 15:56 | disposition short-term general hospital (02) | DRG 264 ==
LOC: FSED 04:15 → ERHOLD 04:19 → MED/SURG3 07:38
PROVIDERS: ADMIT Internal Medicine; ATTEND Internal Medicine
PROC: 0JBR0ZZ Excision of Left Foot Subcutaneous Tissue and Fascia, Open Approach (ICD-10-PCS; principal; 2021-05-18)
PROC: 02HV33Z Insertion of Infusion Device into Superior Vena Cava, Percutaneous Approach (ICD-10-PCS; 2021-05-18)
DX: I70.25 Atherosclerosis of native arteries of other extremities with ulceration (principal); L03.116 Cellulitis of left lower limb; I83.225 Varicose veins of left lower extremity with both ulcer other part of foot and inflammation; L98.492 Non-pressure chronic ulcer of skin of other sites with fat layer exposed; E03.9 Hypothyroidism, unspecified; E78.5 Hyperlipidemia, unspecified; G47.33 Obstructive sleep apnea (adult) (pediatric); M19.90 Unspecified osteoarthritis, unspecified site; Z20.822 Contact with and (suspected) exposure to COVID-19; I12.9 Hypertensive chronic kidney disease with stage 1 through stage 4 chronic kidney disease, or unspecified chronic kidney disease; N18.9 Chronic kidney disease, unspecified
CPT/HCPCS: 36415; 36569; 71045; 80048; 80053; 80202; 82550; 82553; 82948; 84484; 85025; 93005; 93971; 96361; 99251; 99284; J0692; J3370; J7030; J7050; U0002

== ENCOUNTER → 2021-06-25 | Outpatient (CLI) | payer MEDICARE ==
[~2021-06-25] MED LIST changes: +ASPIRIN CHEW81 MG PO; +CALCIUM500 MG PO; +METOPROLOL SUCC25 MG PO
== END ==
LOC: CARD 13:28
PROVIDERS: ATTEND Thoracic Surgery (Cardiothoracic Vascular Surgery)
DX: I73.9 Peripheral vascular disease, unspecified (principal); Z98.890 Other specified postprocedural states
CPT/HCPCS: 93925

== ENCOUNTER 2021-06-30 11:49 | Inpatient (IN) | payer MEDICARE ==
[~2021-06-30] VITALS: Ht 160 cm; Wt 55.3 kg
[~2021-06-30 11:49] MED LIST changes: -METOPROLOL SUCC25 MG PO
[2021-06-30] MEDS ORDERED: SODIUM CHLORIDE 0.9% 500ML 500 ML IV ONE (12:30)
[2021-06-30] MEDS ORDERED: SODIUM CHLORIDE 0.9% 1000ML 1,000 ML IV SCH (12:45)
[2021-06-30 13:29] LABS: BASOPHILS # (AUTO) 0.1 (0.0-0.1); EOSINOPHILS # (AUTO) 0.2 (0.0-0.4); EOSINOPHILS % 1.6 % (0.0-6.0); HEMATOCRIT 35.5 % (34.2-44.1); HEMOGLOBIN 10.7 g/dL (12.0-16.0); LYMPHOCYTES # (AUTO) 2.1 (1.0-3.2); LYMPHOCYTES % 20.5 % (18.0-39.1); MEAN CORPUSCULAR HEMOGLOBIN 29.2 pg (28-32); MEAN CORPUSCULAR HGB CONC 30.1 g/dL (31-35); MEAN CORPUSCULAR VOLUME 96.7 fL (81-99); MONOCYTES % 9.4 % (4.4-11.3); NEUTROPHILS % 67.1 % (38.7-80.0); PLATELET COUNT 341 x10e3/uL (140-360); RED BLOOD COUNT 3.67 x10e6/uL (3.6-5.1); RED CELL DISTRIBUTION WIDTH 14.4 % (11.7-14.4)
[2021-06-30 13:39] LABS: INR 1.02; PARTIAL THROMBOPLASTIN TIME 24.2 seconds (23.8-35.5); PROTHROMBIN TIME 13.6 seconds (11.9-14.5)
[2021-06-30 13:50] LABS: ALBUMIN 3.1 g/dL (3.5-5.0); ALBUMIN/GLOBULIN RATIO 1.1 (0.8-2.0); ANION GAP 13.1 mmol/L (8-16); CALCIUM 9.3 mg/dL (8.4-10.2); CREATININE, SERUM 1.21 mg/dL (0.57-1.11); POTASSIUM 3.1 mmol/L (3.5-5.1)
[2021-06-30 13:57] LABS: CREATINE KINASE MB 0.5 ng/mL (0-5.0)
[2021-06-30 14:39] LABS: CLARITY,URINE CLEAR (CLEAR); COLOR,URINE YELLOW (YELLOW); KETONES,URINE NEGATIVE (NEGATIVE); LEUKOCYTE ESTERASE ,URINE NEGATIVE (NEGATIVE); NITRITE,URINE NEGATIVE (NEGATIVE); PROTEIN,URINE DIPSTICK NEGATIVE (NEGATIVE); URINE UROBILINOGEN 0.2 mg/dL (0.2 - 1)
[2021-06-30 14:47] LABS: BACTERIA,URINE MODERATE /HPF; EPITHELIAL CELLS,URINE FEW /LPF; HYALINE CASTS 0-1 (0-1); RBC,URINE 0-5 /HPF (0-5); WBC,URINE (MAN) 0-5 /HPF (0-5)
[2021-06-30 16:10] VITALS: BP 177/70
[2021-06-30] MEDS ORDERED: METOPROLOL SUCC25 MG PO (16:52)
[2021-06-30 16:53] VITALS: BP 177/70
[2021-06-30] MEDS: SODIUM CHLORIDE 0.9% 1000ML 1,000 ML IV SCH (17:42)
[2021-06-30] MEDS: HYDROCODONE/APAP 10MG-325MG TAB PO PRN ×2 (18:40→23:56)
[2021-06-30 20:00] VITALS: BP 127/61
[2021-06-30 20:27] VITALS: BP_SYST 126; BP_SYST 127; BP_DIAS 53; BP_DIAS 61
[2021-07-01] VITALS (9 sets, daily range): BP systolic 130–181; BP diastolic 50–89
[2021-07-01] MEDS: HYDROCODONE/APAP 10MG-325MG TAB PO PRN ×2 (00:10→19:27)
[2021-07-01] MEDS: SODIUM CHLORIDE 0.9% 1000ML 1,000 ML IV SCH ×3 (01:38→15:52)
[2021-07-01 03:16] LABS: CREATINE KINASE MB 0.5 ng/mL (0-5.0)
[2021-07-01 05:45] LABS: BASOPHILS # (AUTO) 0.1 (0.0-0.1); BASOPHILS % 1.2 % (0.0-1.0); EOSINOPHILS # (AUTO) 0.2 (0.0-0.4); EOSINOPHILS % 2.6 % (0.0-6.0); HEMATOCRIT 30.5 % (34.2-44.1); HEMOGLOBIN 9.1 g/dL (12.0-16.0); LYMPHOCYTES # (AUTO) 1.9 (1.0-3.2); MEAN CORPUSCULAR HEMOGLOBIN 28.6 pg (28-32); MEAN CORPUSCULAR HGB CONC 29.8 g/dL (31-35); MEAN CORPUSCULAR VOLUME 95.9 fL (81-99); MONOCYTES # (AUTO) 0.9 (0.2-0.8); MONOCYTES % 9.9 % (4.4-11.3); NEUTROPHILS # (AUTO) 5.5 (2.1-6.9); PLATELET COUNT 283 x10e3/uL (140-360); RED BLOOD COUNT 3.18 x10e6/uL (3.6-5.1); RED CELL DISTRIBUTION WIDTH 14.4 % (11.7-14.4)
[2021-07-01] MEDS ORDERED: LIOTHYRONINE SODIUM 5 MCG TAB PO SCH (06:00)
[2021-07-01 06:09] LABS: ALBUMIN 2.7 g/dL (3.5-5.0); ANION GAP 9.5 mmol/L (8-16); CALCIUM 9.7 mg/dL (8.4-10.2); CHOL/HDL RATIO 3.5 (3.0-3.6); CREATININE, SERUM 1.21 mg/dL (0.57-1.11); POTASSIUM 3.5 mmol/L (3.5-5.1)
[2021-07-01 06:21] LABS: CREATINE KINASE MB 0.5 ng/mL (0-5.0)
[2021-07-01] MEDS: CLOPIDOGREL BISULFATE 75 MG TAB PO SCH (08:22)
[2021-07-01] MEDS: ASPIRIN 81 MG CHEW TAB PO SCH (08:22)
[2021-07-01] MEDS ORDERED: LEVOTHYROXINE SODIUM 100 MCG TAB PO SCH (09:00)
[2021-07-01] MEDS: LIOTHYRONINE SODIUM 5 MCG TAB PO SCH (10:30)
[2021-07-01] MEDS: LEVOTHYROXINE SODIUM 100 MCG TAB PO SCH (10:30)
[2021-07-01] MEDS ORDERED: SIMVASTATIN 20 MG TAB PO SCH ×2 (21:00)
[2021-07-02] VITALS (8 sets, daily range): BP systolic 132–176; BP diastolic 52–62
[2021-07-02] MEDS: LEVOTHYROXINE SODIUM 100 MCG TAB PO SCH (06:02)
[2021-07-02] MEDS: LIOTHYRONINE SODIUM 5 MCG TAB PO SCH (06:02)
[2021-07-02 06:41] LABS: BASOPHILS # (AUTO) 0.1 (0.0-0.1); BASOPHILS % 0.9 % (0.0-1.0); EOSINOPHILS # (AUTO) 0.3 (0.0-0.4); EOSINOPHILS % 3.1 % (0.0-6.0); HEMATOCRIT 34.8 % (34.2-44.1); HEMOGLOBIN 10.5 g/dL (12.0-16.0); LYMPHOCYTES # (AUTO) 1.9 (1.0-3.2); LYMPHOCYTES % 22.1 % (18.0-39.1); MEAN CORPUSCULAR HEMOGLOBIN 29.1 pg (28-32); MEAN CORPUSCULAR HGB CONC 30.2 g/dL (31-35); MEAN CORPUSCULAR VOLUME 96.4 fL (81-99); MONOCYTES # (AUTO) 0.6 (0.2-0.8); MONOCYTES % 7.2 % (4.4-11.3); NEUTROPHILS # (AUTO) 5.7 (2.1-6.9); NEUTROPHILS % 66.4 % (38.7-80.0); PLATELET COUNT 291 x10e3/uL (140-360); RED BLOOD COUNT 3.61 x10e6/uL (3.6-5.1); RED CELL DISTRIBUTION WIDTH 14.1 % (11.7-14.4)
[2021-07-02 07:57] LABS: ANION GAP 13.5 mmol/L (8-16); CALCIUM 10.3 mg/dL (8.4-10.2); CREATININE, SERUM 1.12 mg/dL (0.57-1.11); MAGNESIUM 1.7 MG/DL (1.3-2.1); POTASSIUM 3.5 mmol/L (3.5-5.1)
[2021-07-02] MEDS: CLOPIDOGREL BISULFATE 75 MG TAB PO SCH (08:11)
[2021-07-02] MEDS: ASPIRIN 81 MG CHEW TAB PO SCH (08:11)
[2021-07-02] MEDS ORDERED: METOPROLOL SUCCINATE 25 MG TAB XL PO SCH (09:00)
[2021-07-02] MEDS: HYDROCODONE/APAP 10MG-325MG TAB PO PRN (12:15)
== END 2021-07-02 17:43 | disposition home or self-care (01) | DRG 312 ==
LOC: ER 12:22 → ERHOLD 15:01 → MED/SURG 15:58
PROVIDERS: ADMIT Internal Medicine; ATTEND Internal Medicine
DX: I95.1 Orthostatic hypotension (principal); I12.9 Hypertensive chronic kidney disease with stage 1 through stage 4 chronic kidney disease, or unspecified chronic kidney disease; N18.30 Chronic kidney disease, stage 3 unspecified; D64.9 Anemia, unspecified; E03.9 Hypothyroidism, unspecified; E78.5 Hyperlipidemia, unspecified; R07.2 Precordial pain; I25.10 Atherosclerotic heart disease of native coronary artery without angina pectoris; I73.9 Peripheral vascular disease, unspecified; F41.9 Anxiety disorder, unspecified; Z95.828 Presence of other vascular implants and grafts; Z88.1 Allergy status to other antibiotic agents; Z88.5 Allergy status to narcotic agent; Z88.2 Allergy status to sulfonamides; Z88.8 Allergy status to other drugs, medicaments and biological substances; Z82.49 Family history of ischemic heart disease and other diseases of the circulatory system; Z20.822 Contact with and (suspected) exposure to COVID-19
CPT/HCPCS: 36415; 70450; 71045; 80053; 80061; 81001; 82550; 82553; 83735; 83880; 84484; 85025; 85610; 85730; 93005; 96360; 99251; 99284; J7030; U0002

== ENCOUNTER 2021-07-23 10:02 | Inpatient (IN) | payer MEDICARE ==
[~2021-07-23] VITALS: Ht 160 cm; Wt 55.8 kg
[~2021-07-23 10:02] MED LIST changes: +METOPROLOL SUCC25 MG PO
[2021-07-23] MEDS ORDERED: SODIUM CHLORIDE 0.9% 1000ML 1,000 ML IV SCH (10:15)
[2021-07-23 11:00] LABS: BASOPHILS # (AUTO) 0.1 (0.0-0.1); BASOPHILS % 0.7 % (0.0-1.0); EOSINOPHILS # (AUTO) 0.1 (0.0-0.4); EOSINOPHILS % 0.7 % (0.0-6.0); HEMATOCRIT 40.9 % (34.2-44.1); HEMOGLOBIN 12.5 g/dL (12.0-16.0); LYMPHOCYTES # (AUTO) 1.6 (1.0-3.2); LYMPHOCYTES % 14.7 % (18.0-39.1); MEAN CORPUSCULAR HEMOGLOBIN 28.5 pg (28-32); MEAN CORPUSCULAR HGB CONC 30.6 g/dL (31-35); MEAN CORPUSCULAR VOLUME 93.4 fL (81-99); MONOCYTES # (AUTO) 0.7 (0.2-0.8); MONOCYTES % 6.2 % (4.4-11.3); NEUTROPHILS # (AUTO) 8.3 (2.1-6.9); NEUTROPHILS % 77.2 % (38.7-80.0); PLATELET COUNT 405 x10e3/uL (140-360); RED BLOOD COUNT 4.38 x10e6/uL (3.6-5.1); RED CELL DISTRIBUTION WIDTH 13.7 % (11.7-14.4)
[2021-07-23 11:25] LABS: INR 0.93; PROTHROMBIN TIME 12.9 seconds (11.9-14.5)
[2021-07-23 11:26] LABS: PARTIAL THROMBOPLASTIN TIME 25.8 seconds (23.8-35.5)
[2021-07-23 11:27] LABS: CLARITY,URINE CLOUDY (CLEAR); COLOR,URINE YELLOW (YELLOW); KETONES,URINE NEGATIVE (NEGATIVE); LEUKOCYTE ESTERASE ,URINE NEGATIVE (NEGATIVE); NITRITE,URINE NEGATIVE (NEGATIVE); PROTEIN,URINE DIPSTICK 1+ (NEGATIVE); URINE UROBILINOGEN 0.2 mg/dL (0.2 - 1)
[2021-07-23 11:35] LABS: ALBUMIN 3.7 g/dL (3.5-5.0); ALBUMIN/GLOBULIN RATIO 1.1 (0.8-2.0); ANION GAP 16.1 mmol/L (8-16); CALCIUM 12.9 mg/dL (8.4-10.2); CREATININE, SERUM 1.64 mg/dL (0.57-1.11); POTASSIUM 3.1 mmol/L (3.5-5.1)
[2021-07-23 11:40] LABS: BACTERIA,URINE FEW /HPF; EPITHELIAL CELLS,URINE MODERATE /LPF
[2021-07-23] MEDS ORDERED: FENTANYL CITRATE/PF 100MCG/2 ML INJ IV ONE (11:45)
[2021-07-23 11:46] LABS: CREATINE KINASE MB 2.4 ng/mL (0-5.0)
[2021-07-23] MEDS ORDERED: FENTANYL CITRATE/PF 100MCG/2 ML INJ ONE (11:50)
[2021-07-23] MEDS ORDERED: TRAMADOL HCL 50 MG TAB PO PRN (14:45)
[2021-07-23 16:07] VITALS: BP 155/65
[2021-07-23] MEDS: ONDANSETRON HCL INJ 2MG/ML 2ML 2 MG/ML VIAL IV PRN (16:30)
[2021-07-23] MEDS: TRAMADOL HCL 50 MG TAB PO PRN (17:46)
[2021-07-23 19:46] VITALS: BP 140/73
[2021-07-23 19:55] VITALS: BP 140/73
[2021-07-23] MEDS: METOPROLOL SUCCINATE 25 MG TAB XL PO SCH (20:46)
[2021-07-23] MEDS: SIMVASTATIN 40 MG TAB PO SCH (20:46)
[2021-07-24] VITALS (8 sets, daily range): BP systolic 131–169; BP diastolic 58–74
[2021-07-24] MEDS: LEVOTHYROXINE SODIUM 100 MCG TAB PO SCH (05:40)
[2021-07-24] MEDS: LIOTHYRONINE SODIUM 5 MCG TAB PO SCH (05:40)
[2021-07-24 06:07] LABS: BASOPHILS # (AUTO) 0.1 (0.0-0.1); BASOPHILS % 1.2 % (0.0-1.0); EOSINOPHILS # (AUTO) 0.1 (0.0-0.4); EOSINOPHILS % 1.2 % (0.0-6.0); HEMATOCRIT 35.8 % (34.2-44.1); HEMOGLOBIN 11.1 g/dL (12.0-16.0); LYMPHOCYTES # (AUTO) 2.5 (1.0-3.2); LYMPHOCYTES % 27.9 % (18.0-39.1); MEAN CORPUSCULAR VOLUME 93.5 fL (81-99); MONOCYTES # (AUTO) 0.9 (0.2-0.8); NEUTROPHILS # (AUTO) 5.3 (2.1-6.9); NEUTROPHILS % 59.5 % (38.7-80.0); PLATELET COUNT 361 x10e3/uL (140-360); RED BLOOD COUNT 3.83 x10e6/uL (3.6-5.1); RED CELL DISTRIBUTION WIDTH 13.9 % (11.7-14.4)
[2021-07-24 06:23] LABS: ANION GAP 14.1 mmol/L (8-16); CALCIUM 12.2 mg/dL (8.4-10.2); CREATININE, SERUM 1.58 mg/dL (0.57-1.11); POTASSIUM 3.1 mmol/L (3.5-5.1)
[2021-07-24] MEDS: CLOPIDOGREL BISULFATE 75 MG TAB PO SCH (08:32)
[2021-07-24] MEDS: ASPIRIN 81 MG CHEW TAB PO SCH (08:32)
[2021-07-24] MEDS: METOPROLOL SUCCINATE 25 MG TAB XL PO SCH ×2 (08:33→20:27)
[2021-07-24] MEDS: TRAMADOL HCL 50 MG TAB PO PRN (17:45)
[2021-07-24] MEDS: SIMVASTATIN 40 MG TAB PO SCH (20:26)
[2021-07-25] VITALS (8 sets, daily range): BP systolic 122–188; BP diastolic 60–75
[2021-07-25] MEDS: LIOTHYRONINE SODIUM 5 MCG TAB PO SCH (05:19)
[2021-07-25] MEDS: LEVOTHYROXINE SODIUM 100 MCG TAB PO SCH (05:20)
[2021-07-25] MEDS: METOPROLOL SUCCINATE 25 MG TAB XL PO SCH ×2 (08:44→20:26)
[2021-07-25] MEDS: CLOPIDOGREL BISULFATE 75 MG TAB PO SCH (08:45)
[2021-07-25] MEDS: ASPIRIN 81 MG CHEW TAB PO SCH (08:45)
[2021-07-25] MEDS: SIMVASTATIN 40 MG TAB PO SCH (20:26)
[2021-07-26] VITALS (7 sets, daily range): BP systolic 142–194; BP diastolic 9–80
[2021-07-26] MEDS: SODIUM CHLORIDE 0.9% 1000ML 1,000 ML IV SCH ×2 (04:20→19:02)
[2021-07-26] MEDS: LIOTHYRONINE SODIUM 5 MCG TAB PO SCH (05:34)
[2021-07-26] MEDS: LEVOTHYROXINE SODIUM 100 MCG TAB PO SCH (05:34)
[2021-07-26 05:59] LABS: BASOPHILS # (AUTO) 0.1 (0.0-0.1); BASOPHILS % 1.1 % (0.0-1.0); EOSINOPHILS # (AUTO) 0.1 (0.0-0.4); HEMATOCRIT 40.4 % (34.2-44.1); HEMOGLOBIN 12.9 g/dL (12.0-16.0); LYMPHOCYTES # (AUTO) 2.3 (1.0-3.2); LYMPHOCYTES % 21.8 % (18.0-39.1); MEAN CORPUSCULAR HEMOGLOBIN 28.9 pg (28-32); MEAN CORPUSCULAR HGB CONC 31.9 g/dL (31-35); MEAN CORPUSCULAR VOLUME 90.4 fL (81-99); MONOCYTES # (AUTO) 0.8 (0.2-0.8); MONOCYTES % 7.7 % (4.4-11.3); NEUTROPHILS # (AUTO) 7.1 (2.1-6.9); NEUTROPHILS % 68.1 % (38.7-80.0); PLATELET COUNT 333 x10e3/uL (140-360); RED BLOOD COUNT 4.47 x10e6/uL (3.6-5.1); RED CELL DISTRIBUTION WIDTH 13.7 % (11.7-14.4)
[2021-07-26 06:07] LABS: ALBUMIN 3.3 g/dL (3.5-5.0); ANION GAP 20.3 mmol/L (8-16); CREATININE, SERUM 1.44 mg/dL (0.57-1.11); MAGNESIUM 1.8 MG/DL (1.3-2.1); POTASSIUM 3.3 mmol/L (3.5-5.1)
[2021-07-26] MEDS: METOPROLOL SUCCINATE 25 MG TAB XL PO SCH ×2 (08:47→21:17)
[2021-07-26] MEDS: ASPIRIN 81 MG CHEW TAB PO SCH (08:47)
[2021-07-26] MEDS ORDERED: PAMIDRONATE DISODIUM 54 MG in SODIUM CHLORIDE 0.9% 500ML 300 ML IV ONE (09:00)
[2021-07-26] MEDS ORDERED: PAMIDRONATE DISODIUM 90 MG in SODIUM CHLORIDE 0.9% 500ML 500 ML IV ONE (10:00)
[2021-07-26] MEDS: HYDRALAZINE HCL 20 MG/ML VIAL IV PRN (12:02)
[2021-07-26] MEDS: ONDANSETRON HCL INJ 2MG/ML 2ML 2 MG/ML VIAL IV PRN (14:57)
[2021-07-26] MEDS: SIMVASTATIN 40 MG TAB PO SCH (21:16)
[2021-07-27] VITALS: BP 141/94
[2021-07-27 04:00] VITALS: BP 116/84
[2021-07-27] MEDS: LEVOTHYROXINE SODIUM 100 MCG TAB PO SCH (06:02)
[2021-07-27] MEDS: LIOTHYRONINE SODIUM 5 MCG TAB PO SCH (06:02)
[2021-07-27 06:30] LABS: BASOPHILS # (AUTO) 0.1 (0.0-0.1); BASOPHILS % 1.2 % (0.0-1.0); EOSINOPHILS # (AUTO) 0.1 (0.0-0.4); EOSINOPHILS % 0.9 % (0.0-6.0); HEMATOCRIT 39.6 % (34.2-44.1); HEMOGLOBIN 11.8 g/dL (12.0-16.0); LYMPHOCYTES % 18.6 % (18.0-39.1); MEAN CORPUSCULAR HEMOGLOBIN 28.6 pg (28-32); MEAN CORPUSCULAR HGB CONC 29.8 g/dL (31-35); MEAN CORPUSCULAR VOLUME 95.9 fL (81-99); NEUTROPHILS # (AUTO) 7.4 (2.1-6.9); NEUTROPHILS % 69.9 % (38.7-80.0); PLATELET COUNT 298 x10e3/uL (140-360); RED BLOOD COUNT 4.13 x10e6/uL (3.6-5.1); RED CELL DISTRIBUTION WIDTH 13.8 % (11.7-14.4)
[2021-07-27 06:47] LABS: ANION GAP 19.4 mmol/L (8-16); CALCIUM 11.2 mg/dL (8.4-10.2); CREATININE, SERUM 1.32 mg/dL (0.57-1.11); MAGNESIUM 1.6 MG/DL (1.3-2.1); PHOSPHORUS 3.8 MG/DL (2.3-4.7); POTASSIUM 3.4 mmol/L (3.5-5.1)
[2021-07-27 06:48] LABS: ALBUMIN/GLOBULIN RATIO 0.9 (0.8-2.0)
[2021-07-27] MEDS: SODIUM CHLORIDE 0.9% 1000ML 1,000 ML IV SCH ×2 (08:51→21:26)
[2021-07-27] MEDS: ASPIRIN 81 MG CHEW TAB PO SCH ×2 (08:51→09:00)
[2021-07-27] MEDS: METOPROLOL SUCCINATE 25 MG TAB XL PO SCH ×4 (09:00→20:22)
[2021-07-27] MEDS ORDERED: PAMIDRONATE DISODIUM 90 MG in SODIUM CHLORIDE 0.9% 500ML 500 ML IV ONE (09:30)
[2021-07-27 09:46] VITALS: BP 159/54
[2021-07-27] MEDS: HYDRALAZINE HCL 20 MG/ML VIAL IV PRN ×2 (13:32→20:29)
[2021-07-27 20:00] VITALS: BP 189/66
[2021-07-27] MEDS: SIMVASTATIN 40 MG TAB PO SCH (21:26)
[2021-07-27] MEDS: TRAMADOL HCL 50 MG TAB PO PRN (21:56)
[2021-07-28] VITALS (7 sets, daily range): BP systolic 117–172; BP diastolic 46–65
[2021-07-28 05:51] LABS: BASOPHILS # (AUTO) 0.1 (0.0-0.1); BASOPHILS % 0.9 % (0.0-1.0); EOSINOPHILS # (AUTO) 0.1 (0.0-0.4); EOSINOPHILS % 1.5 % (0.0-6.0); HEMATOCRIT 35.7 % (34.2-44.1); LYMPHOCYTES # (AUTO) 1.4 (1.0-3.2); LYMPHOCYTES % 16.8 % (18.0-39.1); MEAN CORPUSCULAR HEMOGLOBIN 28.3 pg (28-32); MEAN CORPUSCULAR HGB CONC 30.8 g/dL (31-35); MEAN CORPUSCULAR VOLUME 91.8 fL (81-99); MONOCYTES # (AUTO) 0.9 (0.2-0.8); MONOCYTES % 10.8 % (4.4-11.3); NEUTROPHILS # (AUTO) 5.6 (2.1-6.9); NEUTROPHILS % 69.6 % (38.7-80.0); PLATELET COUNT 301 x10e3/uL (140-360); RED BLOOD COUNT 3.89 x10e6/uL (3.6-5.1); RED CELL DISTRIBUTION WIDTH 13.9 % (11.7-14.4)
[2021-07-28] MEDS: LIOTHYRONINE SODIUM 5 MCG TAB PO SCH (06:00)
[2021-07-28] MEDS: LEVOTHYROXINE SODIUM 100 MCG TAB PO SCH (06:00)
[2021-07-28 06:56] LABS: ALBUMIN 2.8 g/dL (3.5-5.0); ALBUMIN/GLOBULIN RATIO 0.9 (0.8-2.0); ANION GAP 15.1 mmol/L (8-16); CALCIUM 10.6 mg/dL (8.4-10.2); CREATININE, SERUM 1.41 mg/dL (0.57-1.11); MAGNESIUM 1.8 MG/DL (1.3-2.1); POTASSIUM 3.1 mmol/L (3.5-5.1)
[2021-07-28] MEDS: ASPIRIN 81 MG CHEW TAB PO SCH (09:04)
[2021-07-28] MEDS: METOPROLOL SUCCINATE 25 MG TAB XL PO SCH ×2 (09:05→21:00)
[2021-07-28] MEDS: HYDRALAZINE HCL 20 MG/ML VIAL IV PRN (09:05)
[2021-07-28] MEDS: SODIUM CHLORIDE 0.9% 1000ML 1,000 ML IV SCH ×2 (09:35→22:55)
[2021-07-28] MEDS: TRAMADOL HCL 50 MG TAB PO PRN ×2 (09:37→21:53)
[2021-07-28] MEDS ORDERED: POTASSIUM CHLORIDE 20 MEQ TAB CR PO ONE (10:45)
[2021-07-28] MEDS: SIMVASTATIN 40 MG TAB PO SCH (22:02)
[2021-07-29] VITALS (7 sets, daily range): BP systolic 137–205; BP diastolic 49–79
[2021-07-29] MEDS: TRAMADOL HCL 50 MG TAB PO PRN ×3 (04:14→20:15)
[2021-07-29 05:46] LABS: BASOPHILS % 0.4 % (0.0-1.0); EOSINOPHILS # (AUTO) 0.2 (0.0-0.4); EOSINOPHILS % 1.6 % (0.0-6.0); HEMATOCRIT 33.3 % (34.2-44.1); HEMOGLOBIN 10.3 g/dL (12.0-16.0); LYMPHOCYTES # (AUTO) 1.4 (1.0-3.2); MEAN CORPUSCULAR HEMOGLOBIN 28.2 pg (28-32); MEAN CORPUSCULAR HGB CONC 30.9 g/dL (31-35); MEAN CORPUSCULAR VOLUME 91.2 fL (81-99); MONOCYTES % 10.7 % (4.4-11.3); NEUTROPHILS # (AUTO) 6.6 (2.1-6.9); PLATELET COUNT 278 x10e3/uL (140-360); RED BLOOD COUNT 3.65 x10e6/uL (3.6-5.1)
[2021-07-29 06:02] LABS: ALBUMIN 2.6 g/dL (3.5-5.0); ALBUMIN/GLOBULIN RATIO 0.9 (0.8-2.0); ANION GAP 13.1 mmol/L (8-16); CALCIUM 9.5 mg/dL (8.4-10.2); CREATININE, SERUM 1.27 mg/dL (0.57-1.11); POTASSIUM 3.1 mmol/L (3.5-5.1)
[2021-07-29] MEDS: LIOTHYRONINE SODIUM 5 MCG TAB PO SCH (06:22)
[2021-07-29] MEDS: LEVOTHYROXINE SODIUM 100 MCG TAB PO SCH (06:22)
[2021-07-29 06:35] LABS: THYROID STIMULATING HORMONE 0.021 uIU/mL (0.350-4.940)
[2021-07-29] MEDS: ENOXAPARIN SOD INJ 40 MG/0.4 ML SYR SC SCH (06:47)
[2021-07-29] MEDS: ASPIRIN 81 MG CHEW TAB PO SCH (08:57)
[2021-07-29] MEDS: CLOPIDOGREL BISULFATE 75 MG TAB PO SCH (08:58)
[2021-07-29] MEDS ORDERED: CALCITONIN SALMON 400 IU/2ML VIAL SC SCH (09:00)
[2021-07-29] MEDS: METOPROLOL SUCCINATE 25 MG TAB XL PO SCH ×2 (09:03→20:15)
[2021-07-29] MEDS ORDERED: POTASSIUM CHLORIDE 20 MEQ TAB CR PO ONE (12:00)
[2021-07-29] MEDS: HYDRALAZINE HCL 10 MG TAB PO PRN (12:18)
[2021-07-29] MEDS: SODIUM CHLORIDE 0.9% 1000ML 1,000 ML IV SCH (13:43)
[2021-07-29] MEDS: ONDANSETRON HCL INJ 2MG/ML 2ML 2 MG/ML VIAL IV PRN ×2 (13:45→17:58)
[2021-07-29] MEDS ORDERED: BISACODYL 10 MG SUPP PR ONE (16:15)
[2021-07-29] MEDS: SIMVASTATIN 40 MG TAB PO SCH (20:15)
[2021-07-30] VITALS (8 sets, daily range): BP systolic 146–197; BP diastolic 62–70
[2021-07-30] MEDS: SODIUM CHLORIDE 0.9% 1000ML 1,000 ML IV SCH ×2 (01:35→20:35)
[2021-07-30] MEDS: ONDANSETRON HCL INJ 2MG/ML 2ML 2 MG/ML VIAL IV PRN ×2 (04:41→12:09)
[2021-07-30] MEDS: HYDRALAZINE HCL 10 MG TAB PO PRN ×2 (04:56→16:46)
[2021-07-30 05:21] LABS: BASOPHILS # (AUTO) 0.1 (0.0-0.1); BASOPHILS % 0.8 % (0.0-1.0); EOSINOPHILS # (AUTO) 0.1 (0.0-0.4); EOSINOPHILS % 0.7 % (0.0-6.0); HEMATOCRIT 36.7 % (34.2-44.1); HEMOGLOBIN 10.6 g/dL (12.0-16.0); LYMPHOCYTES # (AUTO) 1.9 (1.0-3.2); LYMPHOCYTES % 18.5 % (18.0-39.1); MEAN CORPUSCULAR HGB CONC 28.9 g/dL (31-35); MEAN CORPUSCULAR VOLUME 97.1 fL (81-99); MONOCYTES # (AUTO) 0.7 (0.2-0.8); MONOCYTES % 6.9 % (4.4-11.3); NEUTROPHILS # (AUTO) 7.4 (2.1-6.9); NEUTROPHILS % 72.6 % (38.7-80.0); PLATELET COUNT 209 x10e3/uL (140-360); RED BLOOD COUNT 3.78 x10e6/uL (3.6-5.1); RED CELL DISTRIBUTION WIDTH 14.3 % (11.7-14.4)
[2021-07-30] MEDS: ENOXAPARIN SOD INJ 40 MG/0.4 ML SYR SC SCH (05:37)
[2021-07-30] MEDS: LIOTHYRONINE SODIUM 5 MCG TAB PO SCH (05:37)
[2021-07-30] MEDS: LEVOTHYROXINE SODIUM 100 MCG TAB PO SCH (05:37)
[2021-07-30 05:53] LABS: ALBUMIN 2.7 g/dL (3.5-5.0); ALBUMIN/GLOBULIN RATIO 0.8 (0.8-2.0); ANION GAP 15.4 mmol/L (8-16); CALCIUM 8.5 mg/dL (8.4-10.2); CREATININE, SERUM 1.05 mg/dL (0.57-1.11); POTASSIUM 3.4 mmol/L (3.5-5.1)
[2021-07-30] MEDS: CLOPIDOGREL BISULFATE 75 MG TAB PO SCH (08:02)
[2021-07-30] MEDS: ASPIRIN 81 MG CHEW TAB PO SCH (08:02)
[2021-07-30] MEDS: METOPROLOL SUCCINATE 25 MG TAB XL PO SCH ×2 (08:03→20:30)
[2021-07-30] MEDS: TRAMADOL HCL 50 MG TAB PO PRN (13:30)
[2021-07-30] MEDS ORDERED: POTASSIUM CHLORIDE 20 MEQ TAB CR PO ONE (18:35)
[2021-07-30] MEDS: SIMVASTATIN 40 MG TAB PO SCH (20:29)
[2021-07-31] VITALS (8 sets, daily range): BP systolic 143–206; BP diastolic 56–71
[2021-07-31] MEDS: SODIUM CHLORIDE 0.9% 1000ML 1,000 ML IV SCH ×2 (04:15→17:35)
[2021-07-31] MEDS: TRAMADOL HCL 50 MG TAB PO PRN (04:48)
[2021-07-31] MEDS: LIOTHYRONINE SODIUM 5 MCG TAB PO SCH (05:02)
[2021-07-31] MEDS: LEVOTHYROXINE SODIUM 100 MCG TAB PO SCH (05:02)
[2021-07-31] MEDS: ENOXAPARIN SOD INJ 40 MG/0.4 ML SYR SC SCH (05:03)
[2021-07-31] MEDS: HYDRALAZINE HCL 10 MG TAB PO PRN ×3 (05:20→21:42)
[2021-07-31 05:58] LABS: ALBUMIN 2.5 g/dL (3.5-5.0); ALBUMIN/GLOBULIN RATIO 0.8 (0.8-2.0); ANION GAP 14.4 mmol/L (8-16); CALCIUM 8.3 mg/dL (8.4-10.2); CREATININE, SERUM 1.05 mg/dL (0.57-1.11); POTASSIUM 3.4 mmol/L (3.5-5.1)
[2021-07-31] MEDS: CLOPIDOGREL BISULFATE 75 MG TAB PO SCH (08:24)
[2021-07-31] MEDS: ASPIRIN 81 MG CHEW TAB PO SCH (08:24)
[2021-07-31] MEDS ORDERED: METOPROLOL SUCCINATE 50 MG TAB XL PO SCH (09:00)
[2021-07-31] MEDS: FAMOTIDINE 20 MG TAB PO SCH (21:41)
[2021-07-31] MEDS: METOPROLOL SUCCINATE 50 MG TAB XL PO SCH (21:41)
[2021-07-31] MEDS: SIMVASTATIN 40 MG TAB PO SCH (21:42)
[2021-08-01] VITALS (8 sets, daily range): BP systolic 111–199; BP diastolic 60–97
[2021-08-01] MEDS ORDERED: CLONIDINE HCL 0.1 MG TAB PO ONE (00:30)
[2021-08-01] MEDS: ENOXAPARIN SOD INJ 40 MG/0.4 ML SYR SC SCH (05:35)
[2021-08-01] MEDS: LIOTHYRONINE SODIUM 5 MCG TAB PO SCH (05:35)
[2021-08-01] MEDS: LEVOTHYROXINE SODIUM 100 MCG TAB PO SCH (05:35)
[2021-08-01] MEDS: SODIUM CHLORIDE 0.9% 1000ML 1,000 ML IV SCH ×2 (06:55→20:15)
[2021-08-01] MEDS: ASPIRIN 81 MG CHEW TAB PO SCH (08:12)
[2021-08-01] MEDS: OMEPRAZOLE 20 MG CAP PO SCH (08:12)
[2021-08-01] MEDS: CLOPIDOGREL BISULFATE 75 MG TAB PO SCH (08:12)
[2021-08-01] MEDS: METOPROLOL SUCCINATE 50 MG TAB XL PO SCH ×2 (08:12→17:17)
[2021-08-01 12:28] LABS: ALBUMIN 2.5 g/dL (3.5-5.0); ALBUMIN/GLOBULIN RATIO 0.8 (0.8-2.0); ANION GAP 13.7 mmol/L (8-16); CREATININE, SERUM 1.05 mg/dL (0.57-1.11); POTASSIUM 3.7 mmol/L (3.5-5.1)
[2021-08-01] MEDS: FAMOTIDINE 20 MG TAB PO SCH (21:16)
[2021-08-01] MEDS: SIMVASTATIN 40 MG TAB PO SCH (21:16)
[2021-08-01] MEDS: HYDRALAZINE HCL 10 MG TAB PO PRN (21:20)
[2021-08-01] MEDS: CLONIDINE HCL 0.1 MG TAB PO PRN (23:25)
[2021-08-01] MEDS: TRAMADOL HCL 50 MG TAB PO PRN (23:55)
[2021-08-02] VITALS (9 sets, daily range): BP systolic 152–200; BP diastolic 54–73
[2021-08-02] MEDS: HYDRALAZINE HCL 10 MG TAB PO PRN ×3 (03:26→20:19)
[2021-08-02] MEDS: LEVOTHYROXINE SODIUM 100 MCG TAB PO SCH (05:26)
[2021-08-02] MEDS: ENOXAPARIN SOD INJ 40 MG/0.4 ML SYR SC SCH (05:26)
[2021-08-02] MEDS: LIOTHYRONINE SODIUM 5 MCG TAB PO SCH (05:26)
[2021-08-02 06:06] LABS: ALBUMIN 2.5 g/dL (3.5-5.0); ALBUMIN/GLOBULIN RATIO 0.9 (0.8-2.0); ANION GAP 13.3 mmol/L (8-16); CALCIUM 7.8 mg/dL (8.4-10.2); CREATININE, SERUM 1.06 mg/dL (0.57-1.11); POTASSIUM 3.3 mmol/L (3.5-5.1)
[2021-08-02] MEDS ORDERED: POTASSIUM CHLORIDE 20 MEQ TAB CR PO ONE (06:45)
[2021-08-02] MEDS: ASPIRIN 81 MG CHEW TAB PO SCH (08:02)
[2021-08-02] MEDS: CLOPIDOGREL BISULFATE 75 MG TAB PO SCH (08:02)
[2021-08-02] MEDS: OMEPRAZOLE 20 MG CAP PO SCH (08:02)
[2021-08-02] MEDS: METOPROLOL SUCCINATE 50 MG TAB XL PO SCH ×2 (08:03→16:44)
[2021-08-02] MEDS: LOSARTAN POTASSIUM 25 MG TAB PO SCH (11:36)
[2021-08-02] MEDS: FAMOTIDINE 20 MG TAB PO SCH (20:19)
[2021-08-02] MEDS: SIMVASTATIN 40 MG TAB PO SCH (20:19)
[2021-08-03] VITALS (7 sets, daily range): BP systolic 98–192; BP diastolic 44–63
[2021-08-03] MEDS: CLONIDINE HCL 0.1 MG TAB PO PRN (00:31)
[2021-08-03] MEDS: HYDRALAZINE HCL 10 MG TAB PO PRN (04:08)
[2021-08-03] MEDS: LIOTHYRONINE SODIUM 5 MCG TAB PO SCH (06:14)
[2021-08-03] MEDS: LEVOTHYROXINE SODIUM 100 MCG TAB PO SCH (06:14)
[2021-08-03] MEDS: ENOXAPARIN SOD INJ 40 MG/0.4 ML SYR SC SCH (06:14)
[2021-08-03] MEDS: ASPIRIN 81 MG CHEW TAB PO SCH (08:34)
[2021-08-03] MEDS: CLOPIDOGREL BISULFATE 75 MG TAB PO SCH (08:35)
[2021-08-03] MEDS: TRAMADOL HCL 50 MG TAB PO PRN (08:35)
[2021-08-03] MEDS: OMEPRAZOLE 20 MG CAP PO SCH (08:35)
[2021-08-03] MEDS: METOPROLOL SUCCINATE 50 MG TAB XL PO SCH ×2 (09:00→16:55)
[2021-08-03] MEDS: LOSARTAN POTASSIUM 25 MG TAB PO SCH (09:00)
[2021-08-03] MEDS ORDERED: TRAMADOL HCL 50 MG TAB PO PRN (12:45)
[2021-08-03] MEDS ORDERED: ONDANSETRON HCL 4 MG ORAL DISINTEGRATING TAB PO PRN (16:45)
[2021-08-03] MEDS: SIMVASTATIN 40 MG TAB PO SCH (21:50)
[2021-08-03] MEDS: FAMOTIDINE 20 MG TAB PO SCH (21:50)
[2021-08-04] MEDS ORDERED: BALSAM PERU/CASTOR OIL 60 GM OINT...G. TP SCH (09:00)
== END 2021-08-03 22:21 | DRG 640 ==
LOC: ER 10:09 → ERHOLD 11:49 → MED/SURG 13:12
PROVIDERS: ADMIT Internal Medicine; ATTEND Internal Medicine
DX: E83.52 Hypercalcemia (principal); G93.41 Metabolic encephalopathy; N25.81 Secondary hyperparathyroidism of renal origin; E44.0 Moderate protein-calorie malnutrition; I12.9 Hypertensive chronic kidney disease with stage 1 through stage 4 chronic kidney disease, or unspecified chronic kidney disease; N18.30 Chronic kidney disease, stage 3 unspecified; Z85.528 Personal history of other malignant neoplasm of kidney; R13.10 Dysphagia, unspecified; K21.9 Gastro-esophageal reflux disease without esophagitis; Z20.822 Contact with and (suspected) exposure to COVID-19; E78.5 Hyperlipidemia, unspecified; E03.9 Hypothyroidism, unspecified; E87.6 Hypokalemia; E88.09 Other disorders of plasma-protein metabolism, not elsewhere classified; D64.9 Anemia, unspecified; Z95.820 Peripheral vascular angioplasty status with implants and grafts; I65.22 Occlusion and stenosis of left carotid artery; Z68.21 Body mass index [BMI] 21.0-21.9, adult
CPT/HCPCS: 36415; 70450; 71045; 71250; 74018; 74176; 74246; 78071; 80048; 80053; 81001; 82550; 82553; 83735; 83880; 83970; 84100; 84436; 84443; 84479; 84484; 85025; 85610; 85730; 93005; 97139; 99251; 99284; A9512; J0360; J1650; J2405; J2430; J3010; J7030; J7040; U0002